=== PATIENT | female | born 1975 | race Hispanic/Latino ===

== ENCOUNTER 2020-01-15 23:24 | Emergency (ER) | payer OTHER ==
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
[2020-01-16 02:27] VITALS: BP 132/73
== END 2020-01-16 02:30 | disposition home or self-care (01) ==
LOC: ED 23:24
DX: S06.9X9A Unspecified intracranial injury with loss of consciousness of unspecified duration, initial encounter (principal); F17.200 Nicotine dependence, unspecified, uncomplicated; F15.10 Other stimulant abuse, uncomplicated; Z79.1 Long term (current) use of non-steroidal anti-inflammatories (NSAID); Z79.899 Other long term (current) drug therapy; V49.59XA Passenger injured in collision with other motor vehicles in traffic accident, initial encounter; W22.10XA Striking against or struck by unspecified automobile airbag, initial encounter; Y93.89 Activity, other specified; Y92.410 Unspecified street and highway as the place of occurrence of the external cause; Y99.8 Other external cause status
CPT/HCPCS: 70450; 72125

== ENCOUNTER 2021-06-21 14:02 | Emergency (ER) | payer OTHER ==
[2021-06-21 14:15] VITALS: BP 111/63
== END 2021-06-21 14:50 | disposition left against medical advice (07) ==
LOC: ED 14:02
DX: R10.9 Unspecified abdominal pain (principal); Z53.21 Procedure and treatment not carried out due to patient leaving prior to being seen by health care provider

== ENCOUNTER 2021-06-21 23:06 | Emergency (ER) | payer SELFPAY ==
[2021-06-21] MEDS ORDERED: ONDANSETRON 4 MG ODT TAB PO ONE (23:42)
[2021-06-21] MEDS ORDERED: MORPHINE 4 MG/1 ML INJ IV ONE (23:42)
[2021-06-21] MEDS ORDERED: ACETAMINOPHEN 500 MG TAB PO ONE (23:42)
[2021-06-21] MEDS ORDERED: KETOROLAC 30 MG/1 ML INJ IV ONE (23:43)
--- NOTE | 2021-06-21 23:45 | Emergency Department Report ---
ED Female HPI - General Chief complaint: Abdominal Pain Stated complaint: VAGINAL BLEEDING/LOWER ABD PN Time Seen by Provider: 06/21/21 23:36 Source: patient Mode of arrival: Wheelchair Limitations: No Limitations - History of Present Illness Initial comments: Chief complaint pelvic pain vaginal bleeding HPI: This is a 45-year-old female with history of methamphetamine abuse who presents with severe suprapubic pain and vaginal bleeding which began today. Patient has heavy vaginal bleeding. She feels a pad daily. No radiation of pain. 10 or 10. She denies headache, fever, vomiting, diarrhea. MD Complaint: vaginal bleeding -: Gradual Radiation: non-radiating Severity: severe Severity scale (0 -10): 10 Quality: cramping, sharp Consistency: constant Improves with: none Worsens with: none Are you Now?: No Associated Symptoms: vaginal bleeding - Related Data Previous Rx's Medication Instructions Recorded Last Taken Type Cyclobenzaprine [Flexeril] 10 mg PO TID PRN #20 tablet 01/16/20 Unknown Rx Ibuprofen [Motrin 800 MG tab] 800 mg PO Q8HR PRN #15 tablet 01/16/20 Unknown Rx HYDROcodone/APAP 5-325 [[place] 1 each PO Q4HR PRN #15 tablet 06/22/21 Unknown Rx 5/325] Ibuprofen [Motrin 800 MG tab] 800 mg PO Q8HR PRN #15 tablet 06/22/21 Unknown Rx Allergies Allergy/AdvReac Type Severity Reaction Status Date / Time No Known Allergies Allergy Unverified 01/15/20 23:42 ED Review of Systems ROS: Stated complaint: VAGINAL BLEEDING/LOWER ABD PN Other details as noted in HPI Comment: All other systems reviewed and negative Constitutional: denies: chills, fever, malaise Respiratory: denies: cough, shortness of breath Gastrointestinal: abdominal pain. denies: nausea, vomiting Musculoskeletal: denies: back pain ED Past Medical Hx - Past Medical History Previous Medical History?: Yes Hx Psychiatric Treatment: Yes Additional medical history: Irregukar periods - Surgical History Past Surgical History?: Yes Additional Surgical History: tubes tied. 2018 - Social History Smoking Status: Current Every Day Smoker Substance Use Type: Methamphetamines - Medications Home Medications: Home Medications Medication Instructions Recorded Confirmed Last Taken Type Cyclobenzaprine [Flexeril] 10 mg PO TID PRN #20 tablet 01/16/20 Unknown Rx Ibuprofen [Motrin 800 MG tab] 800 mg PO Q8HR PRN #15 tablet 01/16/20 Unknown Rx HYDROcodone/APAP 5-325 [[place] 1 each PO Q4HR PRN #15 tablet 06/22/21 Unknown Rx 5/325] Ibuprofen [Motrin 800 MG tab] 800 mg PO Q8HR PRN #15 tablet 06/22/21 Unknown Rx ED Physical Exam - General Limitations: No Limitations General appearance: alert, in no apparent distress, anxious - Head Head exam: Present: atraumatic, normocephalic - Eye Eye exam: Present: normal appearance - ENT ENT exam: Present: mucous membranes moist - Neck Neck exam: Present: normal inspection, full ROM - Respiratory Respiratory exam: Present: normal lung sounds bilaterally. Absent: respiratory distress, wheezes, rales, rhonchi - Cardiovascular Cardiovascular Exam: Present: regular rate, normal rhythm, normal heart sounds. Absent: systolic murmur, diastolic murmur, rubs, gallop - GI/Abdominal GI/Abdominal exam: Present: soft, normal bowel sounds. Absent: distended, tenderness, guarding, rebound - Extremities Exam Extremities exam: Present: normal inspection - Back Exam Back exam: Present: normal inspection - Neurological Exam Neurological exam: Present: alert, oriented X3 - Psychiatric Psychiatric exam: Present: normal affect, anxious - Skin Skin exam: Present: warm, dry, intact, normal color. Absent: rash ED Course Vital Signs 06/21/21 06/22/21 23:10 00:26 Temperature 98.4 F 98.5 F Pulse Rate 99 H 100 H Respiratory 28 H 21 Rate Blood Pressure 112/74 134/83 [Left] O2 Sat by Pulse 98 99 Oximetry ED Medical Decision Making - Lab Data Result diagrams: 06/21/21 23:33 06/21/21 23:33 Laboratory Results - last 24 hr 06/21/21 06/21/21 06/21/21 23:33 23:33 23:33 WBC 12.5 H RBC 3.88 Hgb 12.0 Hct 36.3 MCV 94 MCH 31 MCHC 33 RDW 13.9 Plt Count 239 Add Manual Diff Complete Total Counted 100 Seg Neutrophils % Beater Machine Operator Seg Neuts % (Manual) 93.0 H Lymphocytes % (Manual) 3.0 L Monocytes % (Manual) 4.0 Nucleated RBC % Not Reportable Seg Neutrophils # Man 11.6 H Band Neutrophils # 0.0 Lymphocytes # (Manual) 0.4 L Abs React Lymphs (Man) 0.0 Monocytes # (Manual) 0.5 Eosinophils # (Manual) 0.0 Basophils # (Manual) 0.0 Metamyelocytes # 0.0 Myelocytes # 0.0 Promyelocytes # 0.0 Blast Cells # 0.0 WBC Morphology Not Reportable Hypersegmented Neuts Not Reportable Hyposegmented Neuts Not Reportable Hypogranular Neuts Not Reportable Smudge Cells Not Reportable Toxic Granulation Not Reportable Toxic Vacuolation Not Reportable Dohle Bodies Not Reportable Pelger-Huet Anomaly Not Reportable Ashlyn Rods Not Reportable Platelet Estimate Consistent w auto Clumped Platelets Not Reportable Plt Clumps, EDTA Not Reportable Large Platelets Not Reportable Giant Platelets Not Reportable Platelet Satelliting Not Reportable Plt Morphology Comment Not Reportable RBC Morphology Not Reportable Dimorphic RBCs Not Reportable Polychromasia Not Reportable Hypochromasia Not Reportable Poikilocytosis Not Reportable Anisocytosis 1+ Microcytosis Not Reportable Macrocytosis Not Reportable Spherocytes Not Reportable Pappenheimer Bodies Not Reportable Sickle Cells Not Reportable Target Cells Not Reportable Tear Drop Cells Not Reportable Ovalocytes Not Reportable Helmet Cells Not Reportable [place] Bodies Not Reportable [place] Rings Not Reportable Central Cells Not Reportable Bite Cells Not Reportable Crenated Cell Not Reportable Elliptocytes Not Reportable Acanthocytes (Spur) Not Reportable Rouleaux Not Reportable Hemoglobin C Crystals Not Reportable Schistocytes Not Reportable Malaria parasites Not Reportable Geovanni Bodies Not Reportable Hem Pathologist Commnt No Sodium 139 Potassium 3.4 L Chloride 105.7 Carbon Dioxide 21 L Anion Gap 16 BUN 13 Creatinine 1.0 Estimated GFR 60 BUN/Creatinine Ratio 13 Glucose 116 H Calcium 8.5 HCG, Qual Negative Blood Type 06/21/21 23:33 WBC RBC Hgb Hct MCV MCH MCHC RDW Plt Count Add Manual Diff Total Counted Seg Neutrophils % Seg Neuts % (Manual) Lymphocytes % (Manual) Monocytes % (Manual) Nucleated RBC % Seg Neutrophils # Man Band Neutrophils # Lymphocytes # (Manual) Abs React Lymphs (Man) Monocytes # (Manual) Eosinophils # (Manual) Basophils # (Manual) Metamyelocytes # Myelocytes # Promyelocytes # Blast Cells # WBC Morphology Hypersegmented Neuts Hyposegmented Neuts Hypogranular Neuts Smudge Cells Toxic Granulation Toxic Vacuolation Dohle Bodies Pelger-Huet Anomaly Ashlyn Rods Platelet Estimate Clumped Platelets Plt Clumps, EDTA Large Platelets Giant Platelets Platelet Satelliting Plt Morphology Comment RBC Morphology Dimorphic RBCs Polychromasia Hypochromasia Poikilocytosis Anisocytosis Microcytosis Macrocytosis Spherocytes Pappenheimer Bodies Sickle Cells Target Cells Tear Drop Cells Ovalocytes Helmet Cells [place] Bodies Brook Rings Lila Cells Bite Cells Crenated Cell Elliptocytes Acanthocytes (Spur) Rouleaux Hemoglobin C Crystals Schistocytes Malaria parasites Geovanni Bodies Hem Pathologist Commnt Sodium Potassium Chloride Carbon Dioxide Anion Gap BUN Creatinine Estimated GFR BUN/Creatinine Ratio Glucose Calcium HCG, Qual Blood Type O POSITIVE - Radiology Data Radiology results: report reviewed Patient Name: FERCHO COLLINS Gender: Female Date of : 1975 Referring Provider: ALEXUS URIBE Organization: [facility] Accession Number: [id number] Requested Date: June 21, 2021 23:41 Report Status: Final Requested Procedure: 1 Procedure Description: US pelvic complete Modality: US Findings Reporting MD: Compa Rizvi Dictation Time: June 22, 2021 00:14 Medical Record Librarians Teacher: Not available Braille Translator Date: Transvaginal pelvic ultrasound INDICATION: Bleeding FINDINGS: Uterus measures 9.2 x 4.8 x 6.1 cm. Endometrium measures 6 to 7 mm. Ovaries are not visualized. Small hypoechoic area measuring 1.9 x 1.2 cm appears separate from the uterus, abdominal aorta. Patient was not very cooperative for examination and the examination is limited. Signer Name: Compa Rizvi MD Signed: 06/22/2021 12:14 AM Workstation Name: [id number] - Medical Decision Making Dysfunctional uterine bleeding due to suspected uterine fibroid: No anemia normal hemoglobin hematocrit. Patient has slightly elevated white count. I performed serial abdominal exams. No evidence of peritonitis. No abdominal tenderness. No guarding. I have prescribed ibuprofen and [place] referred patient to manager travel. Patient had only minimal bleeding while in the emergency department. Critical care attestation.: If time is entered above; I have spent that time in minutes in the direct care of this critically ill patient, excluding procedure time. ED Disposition Clinical Impression: Dysfunctional uterine bleeding, Uterine fibroid Disposition: HOME / SELF CARE / HOMELESS Is pt being admited?: No Does the pt Need Aspirin: No Condition: Stable Instructions: Abdominal Pain (ED), Abnormal Uterine Bleeding, Uterine Fibroids Prescriptions: Ibuprofen [Motrin 800 MG tab] 800 mg PO Q8HR PRN #15 tablet PRN Reason: Pain , Severe (7-10) HYDROcodone/APAP 5-325 [[place] 5/325] 1 each PO Q4HR PRN #15 tablet PRN Reason: Pain Referrals: STIVEN GALLO MD [Staff Physician] - 3-5 Days
[2021-06-21 23:46] LABS: Hematocrit 36.3 % (30.3-42.9); Mean Corpuscular HGB Conc 33 % (30-34); Mean Corpuscular Volume 94 fl (79-97); Platelet Count 239 K/mm3 (140-440); Red Blood Count 3.88 M/mm3 (3.65-5.03); Red Cell Distribution Width 13.9 % (13.2-15.2)
[2021-06-22 00:07] LABS: Calcium 8.5 mg/dL (8.4-10.2)
[2021-06-22 00:28] VITALS: BP 134/83
[2021-06-22 01:17] LABS: Anisocytosis 1+; Total Cells Counted 100
[2021-06-22 01:18] LABS: Platelet Estimate Consistent w Auto
--- NOTE | 2021-06-22 01:19 | Ultrasound Report ---
Transvaginal pelvic ultrasound INDICATION: Bleeding FINDINGS: Uterus measures 9.2 x 4.8 x 6.1 cm. Endometrium measures 6 to 7 mm. Ovaries are not visuali zed. Small hypoechoic area measuring 1.9 x 1.2 cm appears separate from the uterus, abdominal aorta. Patient was not very cooperative for examination and the examination is limited. Signer Name: Compa Rizvi MD Signed: 06/22/2021 1:14 AM Workstation Name: [id number]
== END 2021-06-22 01:59 | disposition home or self-care (01) ==
LOC: ED 23:06
DX: N93.8 Other specified abnormal uterine and vaginal bleeding (principal); D25.9 Leiomyoma of uterus, unspecified; Z98.890 Other specified postprocedural states; F17.200 Nicotine dependence, unspecified, uncomplicated
CPT/HCPCS: 36415; 76830; 80048; 84703; 85007; 85025; 86850; 86900; 86901; 96374; 96375; 99284; J1885; J2270; 76856; Q0162

== ENCOUNTER 2021-06-29 11:57 | Inpatient (IN) | payer SELFPAY ==
[2021-06-29] MEDS ORDERED: ONDANSETRON 4 MG/2 ML INJ IV ONE ×2 (12:41→23:49)
[2021-06-29] MEDS ORDERED: MORPHINE 4 MG/1 ML INJ IV ONE (12:41)
[2021-06-29] MEDS ORDERED: SODIUM CHLORIDE 0.9% 1000 ML 1,000 ML IV ONE (12:41)
[2021-06-29 13:29] LABS: Hematocrit 39.1 % (30.3-42.9); Hemoglobin 12.8 gm/dl (10.1-14.3); Mean Corpuscular HGB Conc 33 % (30-34); Mean Corpuscular Volume 94 fl (79-97); Platelet Count 602 K/mm3 (140-440); Red Blood Count 4.18 M/mm3 (3.65-5.03); Red Cell Distribution Width 14.6 % (13.2-15.2)
[2021-06-29] MEDS ORDERED: LACTATED RINGERS 1000 ML IV SOLN IV ONE (13:31)
[2021-06-29 13:39] LABS: Albumin 2.5 g/dL (3.9-5); Calcium 7.7 mg/dL (8.4-10.2)
[2021-06-29] MEDS ORDERED: PIPERACIL/TAZOBACTA 4.5/NS 100 4.5 GM/100 ML VIAL IV ONE (13:52)
[2021-06-29] MEDS ORDERED: MORPHINE 2 MG/1 ML INJ ONE (13:55)
--- NOTE | 2021-06-29 13:55 | Event Note ---
ED Screening Note Date of service: 06/29/21 Time: 13:53 ED Screening Note: Patient presents with complaints of sudden onset of mid/lower abdominal pain today Seen here about 1 week ago for vaginal bleeding and abdominal pain and discharged home Denies any bleeding or vomiting today Heart rate noted to be 124 Sepsis protocol ordered Lactic acid 8.6 charge nurse notified of bed and monitor need-working on this currently per charge zosyn and sepsis fluids ordered along with IV potassium This initial assessment/diagnostic orders/clinical plan/treatment(s) is/are subject to change based on patients health status, clinical progression and re- assessment by fellow clinical providers in the ED. Further treatment and workup at subsequent clinical providers discretion. Patient/guardian urged not to elope from the ED as their condition may be serious if not clinically assessed and managed. Initial orders include: labs CT meds
[2021-06-29 14:29] LABS: Band Neutrophils # (Manual) 1.1 K/mm3; Total Cells Counted 100
[2021-06-29 14:30] LABS: Platelet Estimate Consistent w Auto; RBC Morphology Normal
--- NOTE | 2021-06-29 14:51 | Cat Scan Report ---
CT OF THE ABDOMEN AND PELVIS WITHOUT CONTRAST INDICATION / CLINICAL INFORMATION: Severe lower abdominal pain and sepsis. Low GFR. TECHNIQUE: All CT scans at this location are performed using CT dose reduction for ALARA by means of automated exposure control. COMPARISON: None available. FINDINGS: ABDOMEN: There is marked bowel wall thickening involving the right colon with prominent pneumatosis. There is a large amount of extraluminal pericolonic gas in this region. There is moderate soft tissue stranding throughout the pericolonic fat on the right. There is minimal free air in the upper abdome n. There is mild high density ascites. The gallbladder is distended without visible gallstones. The liver, spleen, bile ducts, pancreas, adr enal glands and kidneys are normal. No adenopathy is seen. There is moderate right basilar atelectasi s. The left lung base is clear. PELVIS: There is moderate high density ascites in the pelvis. The distal ureters and urinary bladder are normal. The uterus and adnexal regions are unremarkable. The appendix is not seen. No diverticula r disease is identified. I do not identify a hernia. No acute osseous abnormality is seen. IMPRESSION: Marked bowel wall thickening involving the right colon with associated pneumatosis and ma rked extraluminal pericolonic soft tissue gas. Minimal pneumoperitoneum superiorly and mild high dens ity ascites. The findings are consistent with right colonic ischemia and perforation. CRITICAL RESULT Time of Discovery (SEMICONDUCTOR PACKAGE SYMBOL STAMPER/CDT): 1:40 PM Time of Communication (SEMICONDUCTOR PACKAGE SYMBOL STAMPER/CDT): 1:43 PM Licensed Practitioner Receiving Report: Catrina, the charge nurse in triage. Read-Back Performed: Yes. Signer Name: Tonio Fu MD Signed: 06/29/2021 2:47 PM Workstation Name: [id number]
[2021-06-29] MEDS ORDERED: HYDROmorphone 1 MG/1 ML INJ IV ONE ×2 (14:53→16:43)
[2021-06-29] MEDS ORDERED: metroNIDAZOLE/NS 500 MG/100 ML 500 MG/100 ML BAG IV ONE (14:59)
--- NOTE | 2021-06-29 15:03 | Emergency Department Report ---
ED General Adult HPI - General Chief complaint: Abdominal Pain Stated complaint: ABD PAIN/LEFT SIDE Time Seen by Provider: 06/29/21 14:51 Source: patient, RN notes reviewed Mode of arrival: Wheelchair Limitations: Physical Limitation - History of Present Illness Initial comments: The patient is a 45-year-old female. She presents to the ER with a complaint of diffuse abdominal pain. Patient was evaluated and started her work-up and medical screening examination by the physician plumber's assistant. She had laboratory studies ordered, which demonstrated leukocytosis, bandemia, renal insufficiency, and lactic acidosis. The noncontrast CT scan of the abdomen pelvis was emergently ordered, which demonstrated pneumoperitoneum, and pneumatosis. She was brought back to the emergency room immediately, and I immediately evaluated the patient. Patient complains of malaise, fatigue, weakness, abdominal pain, nausea. Her pain increases with palpation. It decreases with rest and hydromorphone. -: Gradual, hour(s) Radiation: abdomen Severity scale (0 -10): 10 Quality: aching Consistency: constant Improves with: medication, rest Worsens with: movement - Related Data Previous Rx's Medication Instructions Recorded Last Taken Type Cyclobenzaprine [Flexeril] 10 mg PO TID PRN #20 tablet 01/16/20 Unknown Rx Ibuprofen [Motrin 800 MG tab] 800 mg PO Q8HR PRN #15 tablet 01/16/20 Unknown Rx HYDROcodone/APAP 5-325 [[place] 1 each PO Q4HR PRN #15 tablet 06/22/21 Unknown Rx 5/325] Ibuprofen [Motrin 800 MG tab] 800 mg PO Q8HR PRN #15 tablet 06/22/21 Unknown Rx Allergies Allergy/AdvReac Type Severity Reaction Status Date / Time No Known Allergies Allergy Verified 06/29/21 14:00 ED Review of Systems ROS: Stated complaint: ABD PAIN/LEFT SIDE Other details as noted in HPI Comment: Unobtainable due to pts medical conditions Constitutional: malaise, weakness Cardiovascular: denies: chest pain Gastrointestinal: abdominal pain Neurological: weakness Psychiatric: anxiety ED Past Medical Hx - Past Medical History Hx Psychiatric Treatment: Yes Additional medical history: Irregukar periods - Surgical History Additional Surgical History: tubes tied. 2018 - Social History Smoking Status: Current Every Day Smoker Substance Use Type: Methamphetamines - Medications Home Medications: Home Medications Medication Instructions Recorded Confirmed Last Taken Type Cyclobenzaprine [Flexeril] 10 mg PO TID PRN #20 tablet 01/16/20 Unknown Rx Ibuprofen [Motrin 800 MG tab] 800 mg PO Q8HR PRN #15 tablet 01/16/20 Unknown Rx HYDROcodone/APAP 5-325 [[place] 1 each PO Q4HR PRN #15 tablet 06/22/21 Unknown Rx 5/325] Ibuprofen [Motrin 800 MG tab] 800 mg PO Q8HR PRN #15 tablet 06/22/21 Unknown Rx ED Physical Exam - General Limitations: Physical Limitation General appearance: alert, anxious, in distress, obese, other (Patient has mottled skin) - Head Head exam: Present: atraumatic, normocephalic - Eye Eye exam: Present: normal appearance, EOMI. Absent: nystagmus - ENT ENT exam: Present: normal exam, normal orophraynx, mucous membranes moist, normal external ear exam - Neck Neck exam: Present: normal inspection, full ROM. Absent: tenderness, meningismus - Respiratory Respiratory exam: Present: normal lung sounds bilaterally. Absent: respiratory distress, wheezes, rales, rhonchi, stridor, decreased breath sounds - Cardiovascular Cardiovascular Exam: Present: normal rhythm, tachycardia, normal heart sounds. Absent: bradycardia, irregular rhythm, systolic murmur, diastolic murmur, rubs, gallop - GI/Abdominal GI/Abdominal exam: Present: soft, distended, tenderness, guarding, rebound, rigid. Absent: pulsatile mass - Extremities Exam Extremities exam: Present: normal inspection, full ROM, other (2+ pulses noted in the bilateral upper and lower extremities. There is no palpable cord. negative Homans sign. Muscular compartments are soft. The pelvis is stable.). Absent: normal capillary refill (Mottled skin is noted), pedal edema, calf tenderness - Back Exam Back exam: Present: normal inspection. Absent: tenderness, CVA tenderness (R), CVA tenderness (L), paraspinal tenderness, vertebral tenderness - Neurological Exam Neurological exam: Present: alert, other (No facial droop. Tongue midline. Extraocular movements intact bilaterally. Facial sensation intact to light touch in V1, V2, V3 distribution bilaterally. 5 and a 5 strength in 4 extremities. Sensation intact to light touch in 4 extremities.) - Psychiatric Psychiatric exam: Present: anxious - Skin Skin exam: Present: warm, dry, intact, normal color. Absent: rash ED Course Vital Signs 06/29/21 06/29/21 06/29/21 12:02 14:57 15:00 Temperature 97.4 F L Pulse Rate 124 H Respiratory 22 Rate Blood Pressure 106/72 O2 Sat by Pulse 98 98 99 Oximetry 06/29/21 06/29/21 06/29/21 15:16 15:30 15:46 Temperature Pulse Rate 100 H 104 H 110 H Respiratory 46 H 40 H 39 H Rate Blood Pressure 108/78 108/78 108/78 O2 Sat by Pulse 97 96 96 Oximetry 06/29/21 06/29/21 16:00 16:16 Temperature Pulse Rate 102 H 100 H Respiratory 38 H 47 H Rate Blood Pressure 118/78 108/72 O2 Sat by Pulse 97 99 Oximetry ED Medical Decision Making - Lab Data Result diagrams: 06/29/21 12:59 06/29/21 12:59 Vital Signs 06/29/21 12:02 Temperature 97.4 F L Pulse Rate 124 H Respiratory 22 Rate Blood Pressure 106/72 O2 Sat by Pulse 98 Oximetry Lab Results 06/29/21 06/29/21 06/29/21 Range/Units 12:59 12:59 12:59 WBC 13.2 H (4.5-11.0) K/mm3 RBC 4.18 (3.65-5.03) M/mm3 Hgb 12.8 (10.1-14.3) gm/dl Hct 39.1 (30.3-42.9) % MCV 94 (79-97) fl MCH 31 (28-32) pg MCHC 33 (30-34) % RDW 14.6 (13.2-15.2) % Plt Count 602 H (140-440) K/mm3 Add Manual Diff Complete Total Counted 100 Seg Neutrophils % Credit Review Officer Seg Neuts % (Manual) 84.0 H (40.0-70.0) % Band Neutrophils % 8.0 % Lymphocytes % (Manual) 7.0 L (13.4-35.0) % Metamyelocytes % 1.0 % Nucleated RBC % Not Reportable Seg Neutrophils # Man 11.1 H (1.8-7.7) K/mm3 Band Neutrophils # 1.1 K/mm3 Lymphocytes # (Manual) 0.9 L (1.2-5.4) K/mm3 Abs React Lymphs (Man) 0.0 K/mm3 Monocytes # (Manual) 0.0 (0.0-0.8) K/mm3 Eosinophils # (Manual) 0.0 (0.0-0.4) K/mm3 Basophils # (Manual) 0.0 (0.0-0.1) K/mm3 Metamyelocytes # 0.1 K/mm3 Myelocytes # 0.0 K/mm3 Promyelocytes # 0.0 K/mm3 Blast Cells # 0.0 K/mm3 WBC Morphology Not Reportable Hypersegmented Neuts Not Reportable Hyposegmented Neuts Not Reportable Hypogranular Neuts Not Reportable Smudge Cells Not Reportable Toxic Granulation Not Reportable Toxic Vacuolation Not Reportable Dohle Bodies Not Reportable Pelger-Huet Anomaly Not Reportable Ashlyn Rods Not Reportable Platelet Estimate Consistent w auto Clumped Platelets Not Reportable Plt Clumps, EDTA Not Reportable Large Platelets Not Reportable Giant Platelets Not Reportable Platelet Satelliting Not Reportable Plt Morphology Comment Not Reportable RBC Morphology Normal Dimorphic RBCs Not Reportable Polychromasia Not Reportable Hypochromasia Not Reportable Poikilocytosis Not Reportable Anisocytosis Not Reportable Microcytosis Not Reportable Macrocytosis Not Reportable Spherocytes Not Reportable Pappenheimer Bodies Not Reportable Sickle Cells Not Reportable Target Cells Not Reportable Tear Drop Cells Not Reportable Ovalocytes Not Reportable Helmet Cells Not Reportable Caban-[place] Bodies Not Reportable Buckhead Rings Not Reportable [place] Cells Not Reportable Bite Cells Not Reportable Crenated Cell Not Reportable Elliptocytes Not Reportable Acanthocytes (Spur) Not Reportable Rouleaux Not Reportable Hemoglobin C Crystals Not Reportable Schistocytes Not Reportable Malaria parasites Not Reportable Geovanni Bodies Not Reportable Hem Pathologist Commnt No Sodium 135 L (137-145) mmol/L Potassium 2.6 L* (3.6-5.0) mmol/L Chloride 89.0 L (98-107) mmol/L Carbon Dioxide 16 L (22-30) mmol/L Anion Gap 33 mmol/L BUN 25 H (7-17) mg/dL Creatinine 2.1 H (0.6-1.2) mg/dL Estimated GFR 25 ml/min BUN/Creatinine Ratio 12 % Glucose 134 H (65-100) mg/dL Lactic Acid 8.30 H* (0.7-2.0) mmol/L Calcium 7.7 L (8.4-10.2) mg/dL Magnesium (1.7-2.3) mg/dL Total Bilirubin 0.50 (0.1-1.2) mg/dL AST 31 (5-40) units/L ALT 20 (7-56) units/L Alkaline Phosphatase 187 H (35-129) units/L Total Protein 7.4 (6.3-8.2) g/dL Albumin 2.5 L (3.9-5) g/dL Albumin/Globulin Ratio 0.5 % Lipase 9 L (13-60) units/L HCG, Qual (Negative) 06/29/21 06/29/21 06/29/21 Range/Units 12:59 12:59 13:55 WBC (4.5-11.0) K/mm3 RBC (3.65-5.03) M/mm3 Hgb (10.1-14.3) gm/dl Hct (30.3-42.9) % MCV (79-97) fl MCH (28-32) pg MCHC (30-34) % RDW (13.2-15.2) % Plt Count (140-440) K/mm3 Add Manual Diff Total Counted Seg Neutrophils % Seg Neuts % (Manual) (40.0-70.0) % Band Neutrophils % % Lymphocytes % (Manual) (13.4-35.0) % Metamyelocytes % % Nucleated RBC % Seg Neutrophils # Man (1.8-7.7) K/mm3 Band Neutrophils # K/mm3 Lymphocytes # (Manual) (1.2-5.4) K/mm3 Abs React Lymphs (Man) K/mm3 Monocytes # (Manual) (0.0-0.8) K/mm3 Eosinophils # (Manual) (0.0-0.4) K/mm3 Basophils # (Manual) (0.0-0.1) K/mm3 Metamyelocytes # K/mm3 Myelocytes # K/mm3 Promyelocytes # K/mm3 Blast Cells # K/mm3 WBC Morphology TNR Hypersegmented Neuts Hyposegmented Neuts Hypogranular Neuts Smudge Cells Toxic Granulation Toxic Vacuolation Dohle Bodies Pelger-Huet Anomaly Ashlyn Rods Platelet Estimate Clumped Platelets Plt Clumps, EDTA Large Platelets Giant Platelets Platelet Satelliting Plt Morphology Comment RBC Morphology Dimorphic RBCs Polychromasia Hypochromasia Poikilocytosis Anisocytosis Microcytosis Macrocytosis Spherocytes Pappenheimer Bodies Sickle Cells Target Cells Tear Drop Cells Ovalocytes Helmet Cells Caban-[place] Bodies Buckhead Rings Lila Cells Bite Cells Crenated Cell Elliptocytes Acanthocytes (Spur) Rouleaux Hemoglobin C Crystals Schistocytes Malaria parasites Geovanni Bodies Hem Pathologist Commnt Sodium (137-145) mmol/L Potassium (3.6-5.0) mmol/L Chloride (98-107) mmol/L Carbon Dioxide (22-30) mmol/L Anion Gap mmol/L BUN (7-17) mg/dL Creatinine (0.6-1.2) mg/dL Estimated GFR ml/min BUN/Creatinine Ratio % Glucose (65-100) mg/dL Lactic Acid (0.7-2.0) mmol/L Calcium (8.4-10.2) mg/dL Magnesium 2.10 (1.7-2.3) mg/dL Total Bilirubin (0.1-1.2) mg/dL AST (5-40) units/L ALT (7-56) units/L Alkaline Phosphatase (35-129) units/L Total Protein (6.3-8.2) g/dL Albumin (3.9-5) g/dL Albumin/Globulin Ratio % Lipase (13-60) units/L HCG, Qual Negative (Negative) - Radiology Data Radiology results: pending, report reviewed, image reviewed CT OF THE ABDOMEN AND PELVIS WITHOUT CONTRAST INDICATION / CLINICAL INFORMATION: Severe lower abdominal pain and sepsis. Low GFR. TECHNIQUE: All CT scans at this location are performed using CT dose reduction for ALARA by means of automated exposure control. COMPARISON: None available. FINDINGS: ABDOMEN: There is marked bowel wall thickening involving the right colon with prominent pneumatosis. There is a large amount of extraluminal pericolonic gas in this region. There is moderate soft tissue stranding throughout the pericolonic fat on the right. There is minimal free air in the upper abdomen. There is mild high density ascites. The gallbladder is distended without visible gallstones. The liver, spleen, bile ducts, pancreas, adrenal glands and kidneys are normal. No adenopathy is seen. There is moderate right basilar atelectasis. The left lung base is clear. PELVIS: There is moderate high density ascites in the pelvis. The distal ureters and urinary bladder are normal. The uterus and adnexal regions are unremarkable. The appendix is not seen. No diverticular disease is identified. I do not identify a hernia. No acute osseous abnormality is seen. IMPRESSION: Marked bowel wall thickening involving the right colon with associated pneumatosis and marked extraluminal pericolonic soft tissue gas. Minimal pneumoperitoneum superiorly and mild high density ascites. The findings are consistent with right colonic ischemia and perforation. CRITICAL RESULT Time of Discovery (SUTURE GAUGER/CDT): 1:40 PM Time of Communication (SUTURE GAUGER/CDT): 1:43 PM Licensed Practitioner Receiving Report: Catrina, the charge nurse in triage. Read-Back Performed: Yes. Signer Name: Tonio Fu MD Signed: 06/29/2021 1:47 PM Workstation Name: [id number] - Medical Decision Making Differential diagnosis, including but not limited to: Sepsis, perforated viscus, bacteremia Assessment and plan: 45-year-old female with evidence of perforated viscus, ischemic gut, ruling in for sepsis criteria, manifest by mottled skin, tachycardia, leukocytosis, bandemia, renal insufficiency. Emergency consultation requested from general surgery, Dr. Miranda. Have d iscussed the patient's history, physical, laboratory studies and imaging studies. He has presented to the emergency room emergently, and has already evaluated this patient personally. Patient will be given fluids, pain medication, antibiotics. Hospital physician, Dr. Ilya Dooley to admit to [facility] Patient's prognosis is guarded. All questions answered. Patient provided consents to have the details of her medical care discussed with her family. Critical Care Time: Yes Critical care time in (mins) excluding proc time.: 45 Critical care attestation.: If time is entered above; I have spent that time in minutes in the direct care of this critically ill patient, excluding procedure time. ED Disposition Clinical Impression: Sepsis, ALEX (acute kidney injury), Metabolic acidosis, Lactic acidosis, Perforated abdominal viscus, Peritonitis, Hypokalemia Disposition: 09 ADMITTED INPATIENT Is pt being admited?: Yes Does the pt Need Aspirin: No Condition: Critical Instructions: Abdominal Pain (ED) Referrals: PRIMARY CARE, [Primary Care Provider] - 3-5 Days
[2021-06-29] MEDS: POTASSIUM CHLORIDE 10 MEQ 10 MEQ/100 ML BAG IV SCH ×2 (15:40→16:06)
[2021-06-29 15:43] LABS: INR 1.04 (0.87-1.13)
[2021-06-29 15:44] LABS: Partial Thromboplastin Time 29.3 Sec. (24.2-36.6)
--- NOTE | 2021-06-29 16:36 | Anesthesia Consultation ---
Anesthesia Consult and Med Hx Date of service: 06/29/21 - Airway Anesthetic Teeth Evaluation: Poor (multiple missing and chipped teeth, denies loose teeth) ROM Head & Neck: Adequate Mental/Hyoid Distance: Adequate Mallampati Class: Class II Intubation Access Assessment: Probably Good - Pre-Operative Health Status ASA Pre-Surgery Classification: ASA4, Emergency Proposed Anesthetic Plan: General - Pulmonary Hx Smoking: Yes (1PPD) Hx Respiratory Symptoms: No - Cardiovascular System Hx Hypertension: No Hx Heart Attack/AMI: No - Central Nervous System CVA: No - Endocrine Hx Renal Disease: Yes (ALEX) Hx Liver Disease: No Hx Insulin Dependent Diabetes: No Hx Non-Insulin Dependent Diabetes: No Hx Thyroid Disease: No - Other Systems Hx Substance Use: Yes (methamphetamine abuse, last use 2 days ago) Hx Obesity: Yes (BMI 41) - Additional Comments Anesthesia Medical History Comments: No prior GA. No FHx anesthetic complications. Presents with abdominal pain, tachycardia, marginal BP, lactic acidosis and electrolyte derrangements found to have perforated colon on CT scan now scheduled for emergent ex-lap. IV antibiotics, potassium repletion, and IVF bolus initiated in ED. Plan GETA/RSI +/- a-line. Discussed possibility of postop mechanical ventilation and/or ICU admission pending intraoperative course. Patient verbalized understanding.
--- NOTE | 2021-06-29 16:38 | Consultation ---
History of Present Illness Consult date: 06/29/21 Reason for consult: abdominal pain - History of present illness History of present illness: 45 yo female with onset of diffuse abdominal pain without N/V today. +Constipation. ? Hematochezia (poor historian). No h/o CAD, Afib or post- prandial abdominal pain. +Meth use. +Psych hx. Past History Past Surgical History: Other (BTL) Social history: IV drug use Medications and Allergies Allergies Allergy/AdvReac Type Severity Reaction Status Date / Time No Known Allergies Allergy Verified 06/29/21 14:00 Home Medications Medication Instructions Recorded Confirmed Last Taken Type Cyclobenzaprine [Flexeril] 10 mg PO TID PRN #20 tablet 01/16/20 Unknown Rx Ibuprofen [Motrin 800 MG tab] 800 mg PO Q8HR PRN #15 tablet 01/16/20 Unknown Rx HYDROcodone/APAP 5-325 [[place] 1 each PO Q4HR PRN #15 tablet 06/22/21 Unknown Rx 5/325] Ibuprofen [Motrin 800 MG tab] 800 mg PO Q8HR PRN #15 tablet 06/22/21 Unknown Rx Review of Systems All systems: negative (none) Exam Vital Signs Temp Pulse Resp BP Pulse Ox 97.4 F L 124 H 22 106/72 98 06/29/21 12:02 06/29/21 12:02 06/29/21 12:02 06/29/21 12:02 06/29/21 12:02 - General physical appearance Positive: well developed, well nourished, no distress - Eyes Positive: PERRL, normal occular movement - ENT Positive: normal pinna, normal nares, normal mucosa, no hearing loss, no congestion - Neck Positive: no masses, no bruits, trachea midline, no venous distension - Respiratory Positive: normal expansion, normal respiratory effort, clear to auscultation - Cardiovascular Rhythm: regular Heart Sounds: Present: S1 & S2. Absent: rub, click - Extremities Extremities: no ischemia, pulses symmetrical, No edema - Breasts Breasts: normal, no mass, no skin changes - Abdomen Abdomen: Present: soft, bowel sounds hypoactive, other (Mildly distended, diffusely TTP with rebound and guarding) Hernia: none - Genitourinary Male Genitourinary: normal Female Genitourinary: normal - Integumentary no rash, no growths, no abnormal pigmentation - Neurologic Neurologic: alert and oriented to time, place and person, motor strength and sensation are grossly intact - Musculoskeletal normal gait, normal posture - Psychiatric Psychiatric: appropriate mood/affect, intact judgment & insight Results - Labs 06/29/21 12:59 06/29/21 12:59 Abnormal lab results 06/29/21 06/29/21 06/29/21 Range/Units 12:59 12:59 12:59 WBC 13.2 H (4.5-11.0) K/mm3 Plt Count 602 H (140-440) K/mm3 Seg Neuts % (Manual) 84.0 H (40.0-70.0) % Lymphocytes % (Manual) 7.0 L (13.4-35.0) % Seg Neutrophils # Man 11.1 H (1.8-7.7) K/mm3 Lymphocytes # (Manual) 0.9 L (1.2-5.4) K/mm3 Sodium 135 L (137-145) mmol/L Potassium 2.6 L* (3.6-5.0) mmol/L Chloride 89.0 L (98-107) mmol/L Carbon Dioxide 16 L (22-30) mmol/L BUN 25 H (7-17) mg/dL Creatinine 2.1 H (0.6-1.2) mg/dL Glucose 134 H (65-100) mg/dL Lactic Acid 8.30 H* (0.7-2.0) mmol/L Calcium 7.7 L (8.4-10.2) mg/dL Alkaline Phosphatase 187 H (35-129) units/L Albumin 2.5 L (3.9-5) g/dL Lipase 9 L (13-60) units/L 06/29/21 Range/Units 15:15 WBC (4.5-11.0) K/mm3 Plt Count (140-440) K/mm3 Seg Neuts % (Manual) (40.0-70.0) % Lymphocytes % (Manual) (13.4-35.0) % Seg Neutrophils # Man (1.8-7.7) K/mm3 Lymphocytes # (Manual) (1.2-5.4) K/mm3 Sodium (137-145) mmol/L Potassium (3.6-5.0) mmol/L Chloride (98-107) mmol/L Carbon Dioxide (22-30) mmol/L BUN (7-17) mg/dL Creatinine (0.6-1.2) mg/dL Glucose (65-100) mg/dL Lactic Acid 8.70 H* (0.7-2.0) mmol/L Calcium (8.4-10.2) mg/dL Alkaline Phosphatase (35-129) units/L Albumin (3.9-5) g/dL Lipase (13-60) units/L Diabetes panel 06/29/21 Range/Units 12:59 Sodium 135 L (137-145) mmol/L Potassium 2.6 L* (3.6-5.0) mmol/L Chloride 89.0 L (98-107) mmol/L Carbon Dioxide 16 L (22-30) mmol/L BUN 25 H (7-17) mg/dL Creatinine 2.1 H (0.6-1.2) mg/dL Glucose 134 H (65-100) mg/dL Calcium 7.7 L (8.4-10.2) mg/dL AST 31 (5-40) units/L ALT 20 (7-56) units/L Alkaline Phosphatase 187 H (35-129) units/L Total Protein 7.4 (6.3-8.2) g/dL Albumin 2.5 L (3.9-5) g/dL Calcium panel 06/29/21 Range/Units 12:59 Calcium 7.7 L (8.4-10.2) mg/dL Albumin 2.5 L (3.9-5) g/dL Pituitary panel 06/29/21 Range/Units 12:59 Sodium 135 L (137-145) mmol/L Potassium 2.6 L* (3.6-5.0) mmol/L Chloride 89.0 L (98-107) mmol/L Carbon Dioxide 16 L (22-30) mmol/L BUN 25 H (7-17) mg/dL Creatinine 2.1 H (0.6-1.2) mg/dL Glucose 134 H (65-100) mg/dL Calcium 7.7 L (8.4-10.2) mg/dL Adrenal panel 06/29/21 Range/Units 12:59 Sodium 135 L (137-145) mmol/L Potassium 2.6 L* (3.6-5.0) mmol/L Chloride 89.0 L (98-107) mmol/L Carbon Dioxide 16 L (22-30) mmol/L BUN 25 H (7-17) mg/dL Creatinine 2.1 H (0.6-1.2) mg/dL Glucose 134 H (65-100) mg/dL Calcium 7.7 L (8.4-10.2) mg/dL Total Bilirubin 0.50 (0.1-1.2) mg/dL AST 31 (5-40) units/L ALT 20 (7-56) units/L Alkaline Phosphatase 187 H (35-129) units/L Total Protein 7.4 (6.3-8.2) g/dL Albumin 2.5 L (3.9-5) g/dL - Imaging CT scan - abdomen: report reviewed CT scan - pelvis: report reviewed Assessment and Plan - Patient Problems (1) Perforated abdominal viscus Current Visit: Yes Status: Acute Plan to address problem: 1) Urgent exploratory laparotomy with possible right colectomy, possible colos lee and other indicated procedures 2) IV Zosyn 3) Pt and friend are aware of significant post-op risks including colostomy, short gut syndrome, sepsis and .
[2021-06-29] MEDS ORDERED: LACTATED RINGERS 1,000 ML IV ONE (16:40)
--- NOTE | 2021-06-29 16:40 | Anesthesia Day of Surgery ---
Anesthesia Day of Surgery - Day of Surgery Patient Examined: Yes Patient H&P Reviewed: Yes Patient is NPO: Yes
[2021-06-29] MEDS ORDERED: propofoL 200 MG/20 ML VIAL IV ONE (16:46)
[2021-06-29] MEDS ORDERED: HYDROmorphone 1 MG/1 ML INJ ONE (16:46)
[2021-06-29] MEDS ORDERED: LIDOCAINE MPF (2%) 20 MG/1 ML VIAL 5 ML ONE (16:48)
[2021-06-29] MEDS ORDERED: ROCURONIUM 50 MG/5 ML INJ IV ONE (16:49)
[2021-06-29] MEDS ORDERED: SUCCINYLCHOLINE CHLORIDE 200 MG/10 ML INJ MDV ONE (16:49)
[2021-06-29] MEDS ORDERED: SODIUM CHLORIDE 0.9% IRR 1,500 ML BOTTLE IR ONE ×2 (18:15)
[2021-06-29] MEDS ORDERED: LACTATED RINGERS 1,000 ML ONE ×5 (18:32→23:04)
[2021-06-29] MEDS ORDERED: PHENYLEPHRINE/NS 1,000 MCG/10 ML SYRINGE (OR USE) IV ONE (19:39)
[2021-06-29] MEDS ORDERED: ACETAMINOPHEN 650 MG RECT SUPP PR PRN (20:01)
[2021-06-29] MEDS ORDERED: ONDANSETRON 4 MG/2 ML INJ IV PRN (20:01)
[2021-06-29] MEDS ORDERED: VANCOMYCIN 1,500 MG in SODIUM CHLORIDE 0.9% 500 ML 500 ML IV ONE (21:00)
[2021-06-29] MEDS ORDERED: VANCOMYCIN PHARMACY TO DOSE IV SCH (21:00)
[2021-06-29] MEDS ORDERED: CEFEPIME/NS 2 GM/100 ML 2 GM/100 ML BAG IV SCH ×2 (21:00)
[2021-06-29] MEDS ORDERED: GLYCOPYRROLATE 0.4 MG/2 ML INJ ONE (21:09)
[2021-06-29] MEDS ORDERED: NEOSTIGMINE 10MG/10 ML INJ MDV ONE (21:09)
[2021-06-29] MEDS ORDERED: ONDANSETRON 4 MG/2 ML INJ ONE (21:10)
--- NOTE | 2021-06-29 21:19 | History and Physical Report ---
History of Present Illness Date of examination: 06/29/21 Date of admission: 06/29/21 20:01 Chief complaint: Complains of diffuse abdominal pain since early a.m. History of present illness: 45-year-old female with psychiatric problems-comes in for diffuse abdominal pain since early a.m. Pain is about 8 on a scale of 1-10. Nausea present. No fever or chills. Work-up in the emergency room demonstrated leukocytosis, lactic acidosis high creatinine. Noncontrast CT of the scan demonstrated pneumoperitoneum because of which perforation of the GI tract was suspected and surgery was informed. Other than psychiatric problems patient does not have significant medical history. She takes Motrin and [place] for pain. No precipitating or exacerbating factors. Patient being admitted for viscus perforation and for emergent surgery. - Past Medical History --Psychiatric Treatment: Yes --Additional medical history: Irregular periods - Surgical History --Additional Surgical History: tubes tied. 2018 - Social History --Smoking Status: Current Every Day Smoker --Substance Use Type: Methamphetamines - Medications --Home Medications: Home Medications Medication Instructions Recorded Confirmed Last Taken Type Cyclobenzaprine [Flexeril] 10 mg PO TID PRN #20 tablet 01/16/20 Unknown Rx Ibuprofen [Motrin 800 MG tab] 800 mg PO Q8HR PRN #15 tablet 01/16/20 Unknown Rx HYDROcodone/APAP 5-325 [[place] 1 each PO Q4HR PRN #15 tablet 06/22/21 Unknown Rx 5/325] Ibuprofen [Motrin 800 MG tab] 800 mg PO Q8HR PRN #15 tablet 06/22/21 Unknown Rx -Review of Systems --ROS: --Stated complaint: ABD PAIN/LEFT SIDE --Other details as noted in HPI --Comment: Unobtainable due to pts medical conditions --Constitutional: malaise, weakness --Cardiovascular: denies: chest pain --Gastrointestinal: abdominal pain --Neurological: weakness --Psychiatric: anxiety Past History Past Surgical History: Other (BTL) Social history: IV drug use Medications and Allergies Allergies Allergy/AdvReac Type Severity Reaction Status Date / Time No Known Allergies Allergy Verified 06/29/21 14:00 Home Medications Medication Instructions Recorded Confirmed Last Taken Type Cyclobenzaprine [Flexeril] 10 mg PO TID PRN #20 tablet 01/16/20 Unknown Rx Ibuprofen [Motrin 800 MG tab] 800 mg PO Q8HR PRN #15 tablet 01/16/20 Unknown Rx HYDROcodone/APAP 5-325 [[place] 1 each PO Q4HR PRN #15 tablet 06/22/21 Unknown Rx 5/325] Ibuprofen [Motrin 800 MG tab] 800 mg PO Q8HR PRN #15 tablet 06/22/21 Unknown Rx Active Meds: Active Medications Acetaminophen (Acetaminophen 650 Mg Rect Supp) 650 mg CA Q4H PRN PRN Reason: Pain MILD(1-3)/Fever >100.5/PAYNE Hydromorphone HCl (Hydromorphone 1 Mg/1 Ml Inj) 0.5 mg IV Q3H PRN PRN Reason: Pain , Severe (7-10) Dextrose/Sodium Chloride (D5ns) 1,000 mls @ 100 mls/hr IV DIRECT SOILA Cefepime HCl (Cefepime/Ns 2 Gm/100 Ml) 2 gm in 100 mls @ 200 mls/hr IV Q12H SOILA; Protocol Vancomycin HCl 1,500 mg/ (Sodium Chloride) 530 mls @ 265 mls/hr IV ONCE ONE Stop: 06/29/21 22:59 Vancomycin HCl 1,500 mg/ (Sodium Chloride) 530 mls @ 265 mls/hr IV Q24H SOILA Morphine Sulfate (Morphine 2 Mg/1 Ml Inj) 2 mg IV Q4H PRN PRN Reason: Pain, Moderate (4-6) Ondansetron HCl (Ondansetron 4 Mg/2 Ml Inj) 4 mg IV Q8H PRN PRN Reason: Nausea And Vomiting Sodium Chloride (Sodium Chloride 0.9% 10 Ml Flush Syringe) 10 ml IV BID SOILA Sodium Chloride (Sodium Chloride 0.9% 10 Ml Flush Syringe) 10 ml IV PRN PRN PRN Reason: LINE FLUSH Exam - Constitutional Vitals: Temp Pulse Resp BP Pulse Ox 97.4 F L 100 H 47 H 108/72 99 06/29/21 12:02 06/29/21 16:16 06/29/21 16:16 06/29/21 16:16 06/29/21 16:16 General appearance: Present: no acute distress, well-nourished - EENT Eyes: Present: PERRL ENT: hearing intact, clear oral mucosa - Neck Neck: Present: supple, normal ROM - Respiratory Respiratory effort: normal Respiratory: bilateral: CTA - Cardiovascular Heart rate: 98 Rhythm: regular Heart Sounds: Present: S1 & S2. Absent: rub, click - Extremities Extremities: pulses symmetrical, No edema Peripheral Pulses: within normal limits - Abdominal General gastrointestinal: Present: soft, tender, hypoactive bowel sounds Localized gastrointestinal: tender: diffuse, guarding: diffuse, rebound: diffuse Female genitourinary: Present: normal - Integumentary Integumentary: Present: clear, warm, dry - Musculoskeletal Musculoskeletal: gait normal, strength equal bilaterally - Psychiatric Psychiatric: appropriate mood/affect, intact judgment & insight - Neurologic Neurologic: CNII-XII intact, moves all extremities - Allied Health Allied health notes reviewed: nursing, case management Results - Labs CBC & Chem 7: 06/30/21 04:52 06/30/21 04:52 Labs: Laboratory Last Values WBC 13.2 K/mm3 (4.5-11.0) H 06/29/21 12:59 RBC 4.18 M/mm3 (3.65-5.03) 06/29/21 12:59 Hgb 12.8 gm/dl (10.1-14.3) 06/29/21 12:59 Hct 39.1 % (30.3-42.9) 06/29/21 12:59 MCV 94 fl (79-97) 06/29/21 12:59 MCH 31 pg (28-32) 06/29/21 12:59 MCHC 33 % (30-34) 06/29/21 12:59 RDW 14.6 % (13.2-15.2) 06/29/21 12:59 Plt Count 602 K/mm3 (140-440) H 06/29/21 12:59 Add Manual Diff Complete 06/29/21 12:59 Total Counted 100 06/29/21 12:59 Seg Neutrophils % Gym Supervisor 06/29/21 12:59 Seg Neuts % (Manual) 84.0 % (40.0-70.0) H 06/29/21 12:59 Band Neutrophils % 8.0 % 06/29/21 12:59 Lymphocytes % (Manual) 7.0 % (13.4-35.0) L 06/29/21 12:59 Metamyelocytes % 1.0 % 06/29/21 12:59 Nucleated RBC % Not Reportable 06/29/21 12:59 Seg Neutrophils # Man 11.1 K/mm3 (1.8-7.7) H 06/29/21 12:59 Band Neutrophils # 1.1 K/mm3 06/29/21 12:59 Lymphocytes # (Manual) 0.9 K/mm3 (1.2-5.4) L 06/29/21 12:59 Abs React Lymphs (Man) 0.0 K/mm3 06/29/21 12:59 Monocytes # (Manual) 0.0 K/mm3 (0.0-0.8) 06/29/21 12:59 Eosinophils # (Manual) 0.0 K/mm3 (0.0-0.4) 06/29/21 12:59 Basophils # (Manual) 0.0 K/mm3 (0.0-0.1) 06/29/21 12:59 Metamyelocytes # 0.1 K/mm3 06/29/21 12:59 Myelocytes # 0.0 K/mm3 06/29/21 12:59 Promyelocytes # 0.0 K/mm3 06/29/21 12:59 Blast Cells # 0.0 K/mm3 06/29/21 12:59 WBC Morphology Not Reportable 06/29/21 12:59 WBC Morphology TNR 06/29/21 12:59 Hypersegmented Neuts Not Reportable 06/29/21 12:59 Hyposegmented Neuts Not Reportable 06/29/21 12:59 Hypogranular Neuts Not Reportable 06/29/21 12:59 Smudge Cells Not Reportable 06/29/21 12:59 Toxic Granulation Not Reportable 06/29/21 12:59 Toxic Vacuolation Not Reportable 06/29/21 12:59 Dohle Bodies Not Reportable 06/29/21 12:59 Pelger-Huet Anomaly Not Reportable 06/29/21 12:59 Ashlyn Rods Not Reportable 06/29/21 12:59 Platelet Estimate Consistent w auto 06/29/21 12:59 Clumped Platelets Not Reportable 06/29/21 12:59 Plt Clumps, EDTA Not Reportable 06/29/21 12:59 Large Platelets Not Reportable 06/29/21 12:59 Giant Platelets Not Reportable 06/29/21 12:59 Platelet Satelliting Not Reportable 06/29/21 12:59 Plt Morphology Comment Not Reportable 06/29/21 12:59 RBC Morphology Normal 06/29/21 12:59 Dimorphic RBCs Not Reportable 06/29/21 12:59 Polychromasia Not Reportable 06/29/21 12:59 Hypochromasia Not Reportable 06/29/21 12:59 Poikilocytosis Not Reportable 06/29/21 12:59 Anisocytosis Not Reportable 06/29/21 12:59 Microcytosis Not Reportable 06/29/21 12:59 Macrocytosis Not Reportable 06/29/21 12:59 Spherocytes Not Reportable 06/29/21 12:59 Pappenheimer Bodies Not Reportable 06/29/21 12:59 Sickle Cells Not Reportable 06/29/21 12:59 Target Cells Not Reportable 06/29/21 12:59 Tear Drop Cells Not Reportable 06/29/21 12:59 Ovalocytes Not Reportable 06/29/21 12:59 Helmet Cells Not Reportable 06/29/21 12:59 Caban-[place]aberfae Bodies Not Reportable 06/29/21 12:59 [place] Rings Not Reportable 06/29/21 12:59 Lila Cells Not Reportable 06/29/21 12:59 Bite Cells Not Reportable 06/29/21 12:59 Crenated Cell Not Reportable 06/29/21 12:59 Elliptocytes Not Reportable 06/29/21 12:59 Acanthocytes (Spur) Not Reportable 06/29/21 12:59 Rouleaux Not Reportable 06/29/21 12:59 Hemoglobin C Crystals Not Reportable 06/29/21 12:59 Schistocytes Not Reportable 06/29/21 12:59 Malaria parasites Not Reportable 06/29/21 12:59 Geovanni Bodies Not Reportable 06/29/21 12:59 Hem Pathologist Commnt No 06/29/21 12:59 PT 14.7 Sec. (12.2-14.9) 06/29/21 15:15 INR 1.04 (0.87-1.13) 06/29/21 15:15 APTT 29.3 Sec. (24.2-36.6) 06/29/21 15:15 Sodium 135 mmol/L (137-145) L 06/29/21 12:59 Potassium 2.6 mmol/L (3.6-5.0) L* 06/29/21 12:59 Chloride 89.0 mmol/L (98-107) L 06/29/21 12:59 Carbon Dioxide 16 mmol/L (22-30) L 06/29/21 12:59 Anion Gap 33 mmol/L 06/29/21 12:59 BUN 25 mg/dL (7-17) H 06/29/21 12:59 Creatinine 2.1 mg/dL (0.6-1.2) H 06/29/21 12:59 Estimated GFR 25 ml/min 06/29/21 12:59 BUN/Creatinine Ratio 12 % 06/29/21 12:59 Glucose 134 mg/dL (65-100) H 06/29/21 12:59 Lactic Acid 8.00 mmol/L (0.7-2.0) H* 06/29/21 16:43 Calcium 7.7 mg/dL (8.4-10.2) L 06/29/21 12:59 Magnesium 2.10 mg/dL (1.7-2.3) 06/29/21 12:59 Total Bilirubin 0.50 mg/dL (0.1-1.2) 06/29/21 12:59 AST 31 units/L (5-40) 06/29/21 12:59 ALT 20 units/L (7-56) 06/29/21 12:59 Alkaline Phosphatase 187 units/L (35-129) H 06/29/21 12:59 Total Protein 7.4 g/dL (6.3-8.2) 06/29/21 12:59 Albumin 2.5 g/dL (3.9-5) L 06/29/21 12:59 Albumin/Globulin Ratio 0.5 % 06/29/21 12:59 Lipase 9 units/L (13-60) L 06/29/21 12:59 HCG, Qual Negative (Negative) 06/29/21 13:55 Blood Type O POSITIVE 06/29/21 15:20 Antibody Screen Negative 06/29/21 15:20 Short CBC 06/29/21 06/30/21 Range/Units 12:59 04:52 WBC 13.2 H 12.2 H (4.5-11.0) K/mm3 Hgb 12.8 10.2 (10.1-14.3) gm/dl Hct 39.1 30.9 D (30.3-42.9) % Plt Count 602 H 467 H (140-440) K/mm3 BMP 06/29/21 06/30/21 12:59 04:52 Sodium 135 L 137 Potassium 2.6 L* 4.2 D Chloride 89.0 L 100.0 Carbon Dioxide 16 L 13 L BUN 25 H 29 H Creatinine 2.1 H 2.4 H Glucose 134 H 147 H Calcium 7.7 L 6.0 L D Liver Function 06/29/21 06/30/21 Range/Units 12:59 04:52 Total Bilirubin 0.50 0.60 (0.1-1.2) mg/dL AST 31 214 H (5-40) units/L ALT 20 89 H (7-56) units/L Alkaline Phosphatase 187 H 100 (35-129) units/L Albumin 2.5 L 1.3 L (3.9-5) g/dL Urine 06/30/21 Range/Units 04:37 Urine Color Carola (Yellow) Urine pH 5.0 (5.0-7.0) Ur Specific [place] 1.017 (1.003-1.030) Urine Protein 100 mg/dl (Negative) mg/dL Urine Glucose (UA) 50 (Negative) mg/dL Microbiology: Microbiology 06/29/21 12:59 Peripheral/Venous Blood Culture - Preliminary Culture in Progress 06/29/21 12:59 Peripheral/Venous Blood Culture - Preliminary Culture in Progress - Imaging and Cardiology CT scan - abdomen: report reviewed Imaging and Cardiology: CT of the abdomen Mild bowel wall thickening involving the right colon with associated pneumatosis and mild extraluminal pericolonic soft tissue gas. Minimal pneumoperitoneum superiorly and mild high density ascites. The findings are consistent with right colonic ischemia and perforation Assessment and Plan Assessment and plan: Critical care statement The high probability OF a clinically significant sudden or life-threatening deterioration of the cardiorespiratory system and endocrine system required my full and direct attention, intervention and postoperative management. The aggregate critical care time was 40 minutes. The time is in addition to time spent performing reported procedures but includes the followin: Data review and interpretation 2: Patient assessment and monitoring of vital signs 3: Documentation 4:: Medication orders and management Advance Directives: Yes (Full code) VTE prophylaxis?: Chemical Plan of care discussed with patient/family: Yes - Patient Problems (1) Sepsis Current Visit: Yes Status: Acute Qualifiers: Severe sepsis shock status: without septic shock Plan to address problem: Sepsis secondary to right colon perforation IV antibiotics in the form of cefepime and IV Flagyl IV fluids Surgery consult Patient being taken for surgery emergently. (2) Perforated abdominal viscus Current Visit: Yes Status: Acute Plan to address problem: Perforated right colon Etiology unclear Patient takes ibuprofen No other cause could be identified Emergent surgery-Dr. Miranda consulted (3) Peritonitis Current Visit: Yes Status: Acute Plan to address problem: Patient on IV cefepime and Flagyl ID consult requested (4) ALEX (acute kidney injury) Current Visit: Yes Status: Acute Plan to address problem: IV fluids for now Vasomotor nephropathy (5) Elevated lactic acid level Current Visit: Yes Status: Acute Plan to address problem: Secondary to sepsis (6) Hypocalcemia Current Visit: Yes Status: Acute Plan to address problem: Calcium gluconate for now Oral calcium to be started when the patient is on oral diet (7) Malnutrition Current Visit: Yes Status: Acute Qualifiers: Protein-calorie malnutrition severity: moderate Plan to address problem: Patient is a TPN after surgery Patient is going to have right colectomy and colostomy (8) Hypokalemia Current Visit: Yes Status: Acute Plan to address problem: Supplemented (9) Urinary tract infection Current Visit: Yes Status: Acute Qualifiers: Urinary tract infection type: acute cystitis Plan to address problem: Patient IV antibiotics pending urine cultures (10) DVT prophylaxis Current Visit: Yes Status: Acute Plan to address problem: On anticoagulation GI prophylaxis
--- NOTE | 2021-06-29 21:24 | Procedure Note ---
Date of procedure: 06/29/21 Pre-op diagnosis: Perforated, ischemic right colon Post-op diagnosis: same Procedure: 1) Right colectomy with end ileostomy 2) Omentectomy Description of procedure: Pt was placed supine on the OR table. GETA was administered. Abdomen was prepped and draped. Peritoneal cavity was entered via a long midline incision. A large amount of feculent pus was encountered on entering the peritoneal cavity. Some time was spent suctioning the purulent fluid which was collected for C&S. A Burkwalter retractor was placed. The omentum was adherent to the the underlying small bowel and right colon. Omentum was freed from these structures with digital dissection. Small bowel was run from the ligament of Treitz to the IC valve. Although the bowel was edematous and there were several areas where the small bowel mesentery had begun to wall off abscesses, the entire small bowel appeared viable and was without evidence of perforation. The right colon was then examined and appeared necrotic from the cecum to just beyond the hepatic flexure. The appendix was obviously gangrenous. The right colon lateral attachments were incised and the colon mobilized medially. Distal ileum and viable mid-transverse colon were divided with FRANCISCO staplers. The small bowel mesentery and mesocolon were clamped, divided and ligated with 2-0 silks. TI and right colon were passed off the table. The remainder of the colon and gallbladder were without evidence of pr imary inflammation. Peritoneal cavity was then irrigated with 3 liters of warm saline. Areas of dissection were check for hemostasis and all areas appeared hemostatic. A 3 cm cruciate incision was then made in the LLQ fascia for passage of the ileostomy. The TI was passed through this defect. Midline fascia was approximated with a running, looped, #1 PDS. SQ tissue was packed open with 2 dilute Betadine moistened Kerlix rolls. An occlusive Tegaderm dressing was applied over the midline wound. The ileostomy was then matured with interrupted sutures of 3-0 Vicryl. Ileostomy wafer and bag were applied. Pt tolerated the procedure well. Pt was extubated in the OR and was taken to PACU in stable condition. Anesthesia: GETA Surgeon: ANUP RODRIGUEZ Estimated blood loss: other (500 ml) Pathology: list (TI and right colon) Specimen disposition: to lab Condition: stable Disposition: PACU
[2021-06-29] MEDS: HYDROmorphone 1 MG/1 ML INJ IV PRN ×4 (21:45→22:37)
[2021-06-29] MEDS ORDERED: PIPERACIL/TAZOBACTA 4.5/NS 100 4.5 GM/100 ML VIAL IV SCH (22:00)
[2021-06-29] MEDS: PIPERACIL-TAZO 2.25 GM/50 ML 2.25 GM/50 ML BAG IV SCH (22:59)
--- NOTE | 2021-06-29 23:05 | Post Anesthesia Evaluation ---
- Post Anesthesia Evaluation Patient Participated: Yes Airway Patent: Yes Stable Respiratory Function: Yes Nausea/Vomiting: No Temp > 96.8F: Yes Pain Manageable: Yes Adequeate Hydration: Yes Anesthesia Complications: No Patient on Ventilator: No Other Comments: Tachycardic, normotensive without pressor support, SpO2 maint ained >93% on NC. Per building maintenance mechanic and surgeron discussion, patient will be transferred to [facility]. IVF resuscitation ongoing and next scheduled dose antibiotics started prior to transfer. Family updated by surgeon and [employer]BE[employer]KE [employer]ER.
[2021-06-29] MEDS ORDERED: ONDANSETRON 4 MG/2 ML INJ IM ONE (23:21)
[2021-06-30] MEDS ORDERED: PIPERACIL-TAZO 2.25 GM/50 ML 2.25 GM/50 ML BAG IV SCH
[2021-06-30] MEDS: D5W/0.9% NACL 1,000 ML IV SCH ×3 (00:17→22:21)
[2021-06-30] MEDS: PIPERACIL-TAZO 2.25 GM/50 ML 2.25 GM/50 ML BAG IV SCH ×2 (05:09→11:07)
[2021-06-30 05:14] LABS: Bacteria,Urine 1+ /HPF (Negative); Bilirubin,Urine NEG (Negative); Blood,Urine SM (Negative); Color,Urine Amber (Yellow)
[2021-06-30 05:49] LABS: Basophils % (Auto) 0.2 % (0.0-1.8); Eosinophils # (Auto) 0.1 K/mm3 (0.0-0.4); Eosinophils % (Auto) 0.6 % (0.0-4.3); Hematocrit 30.9 % (30.3-42.9); Hemoglobin 10.2 gm/dl (10.1-14.3); Lymphocytes # (Auto) 0.6 K/mm3 (1.2-5.4); Lymphocytes % (Auto) 5.1 % (13.4-35.0); Mean Corpuscular HGB Conc 33 % (30-34); Mean Corpuscular Volume 95 fl (79-97); Monocytes # (Auto) 0.5 K/mm3 (0.0-0.8); Monocytes % (Auto) 4.1 % (0.0-7.3); Platelet Count 467 K/mm3 (140-440); Red Blood Count 3.25 M/mm3 (3.65-5.03); Red Cell Distribution Width 15.2 % (13.2-15.2)
[2021-06-30 06:05] LABS: Albumin 1.3 g/dL (3.9-5)
[2021-06-30] MEDS ORDERED: CALCIUM GLUCONATE 2,000 MG in SODIUM CHLORIDE 0.9% 100 ML IV ONE (06:58)
--- NOTE | 2021-06-30 08:20 | Progress Note ---
Assessment and Plan Assessment and plan: 45-year-old female who presented with diffuse abdominal pain. CT scan demonstrated pneumoperitoneum due to perforation. She was taken for emergent surgery. S/p R colectomy with end ileostomy. Patient currently stable. #Sepsis #Perforated abdominal viscus -POD #0: Right colectomy with end ileostomy -Status post Zosyn -ID consulted for antibiotic recommendations, will start Rocephin and Flagyl x5 days -General Surgery following #Hypotension -BP with low BP overnight -responsive to fluids -will give 1 bolus of LR -continue D5 infusion, low threshold to start pressors if needed #Acute kidney injury -Creatinine 1.0 last month -SCr 2.4, if SCr continues to uptrend, will consult Nephrology -urine sodium, creatinine ordered -received 2 L boluses of IVF -D5 currently infusing #Elevated lactate level -lactate 8.0 -likely secondary to perforated bowel -repeat ordered #Hypokalemia -Resolved -will continue to monitor and replete #Urinary tract infection -continue rocephin Disposition Plan: Continue medical management Total Time Spent with Patient (Minutes): 30 minutes History Interval history: Status post colectomy. Patient reports feeling "thirsty". Reports abdominal and lower back pain. Denies chest pain and shortness of breath. Hospitalist Physical - Physical exam Narrative exam: GENERAL: Well-developed well-nourished. Lying in bed, no acute distress. HEENT: NG tube in place CHEST/LUNGS: CTAB on room air HEART/CARDIOVASCULAR: Tachycardic. No murmur, rubs or gallops appreciated. ABDOMEN: Open midline abdominal surgical incision. Ostomy. +BS. SKIN: No rashes noted. NEURO: No focal motor deficit. Follows all commands. MUSCULOSKELETAL: No joint effusion EXTREMITIES: No cyanosis, cubbing or edema. PSYCH: Cooperative. - Constitutional Vitals: Temp Pulse Resp BP Pulse Ox 97.2 F L 112 H 28 H 89/56 95 06/30/21 06:03 06/30/21 07:00 06/30/21 07:00 06/30/21 07:00 06/30/21 07:00 General appearance: Present: no acute distress, well-nourished Results - Labs CBC & Chem 7: 06/30/21 04:52 06/30/21 04:52 Labs: Laboratory Last Values WBC 12.2 K/mm3 (4.5-11.0) H 06/30/21 04:52 RBC 3.25 M/mm3 (3.65-5.03) L 06/30/21 04:52 Hgb 10.2 gm/dl (10.1-14.3) 06/30/21 04:52 Hct 30.9 % (30.3-42.9) D 06/30/21 04:52 MCV 95 fl (79-97) 06/30/21 04:52 MCH 31 pg (28-32) 06/30/21 04:52 MCHC 33 % (30-34) 06/30/21 04:52 RDW 15.2 % (13.2-15.2) 06/30/21 04:52 Plt Count 467 K/mm3 (140-440) H 06/30/21 04:52 Lymph % (Auto) 5.1 % (13.4-35.0) L 06/30/21 04:52 Gray % (Auto) 4.1 % (0.0-7.3) 06/30/21 04:52 Eos % (Auto) 0.6 % (0.0-4.3) 06/30/21 04:52 Baso % (Auto) 0.2 % (0.0-1.8) 06/30/21 04:52 Lymph # (Auto) 0.6 K/mm3 (1.2-5.4) L 06/30/21 04:52 Gray # (Auto) 0.5 K/mm3 (0.0-0.8) 06/30/21 04:52 Eos # (Auto) 0.1 K/mm3 (0.0-0.4) 06/30/21 04:52 Baso # (Auto) 0.0 K/mm3 (0.0-0.1) 06/30/21 04:52 Add Manual Diff Complete 06/29/21 12:59 Total Counted 100 06/29/21 12:59 Seg Neutrophils % 90.0 % (40.0-70.0) H 06/30/21 04:52 Seg Neuts % (Manual) 84.0 % (40.0-70.0) H 06/29/21 12:59 Band Neutrophils % 8.0 % 06/29/21 12:59 Lymphocytes % (Manual) 7.0 % (13.4-35.0) L 06/29/21 12:59 Metamyelocytes % 1.0 % 06/29/21 12:59 Nucleated RBC % Not Reportable 06/29/21 12:59 Seg Neutrophils # 11.0 K/mm3 (1.8-7.7) H 06/30/21 04:52 Seg Neutrophils # Man 11.1 K/mm3 (1.8-7.7) H 06/29/21 12:59 Band Neutrophils # 1.1 K/mm3 06/29/21 12:59 Lymphocytes # (Manual) 0.9 K/mm3 (1.2-5.4) L 06/29/21 12:59 Abs React Lymphs (Man) 0.0 K/mm3 06/29/21 12:59 Monocytes # (Manual) 0.0 K/mm3 (0.0-0.8) 06/29/21 12:59 Eosinophils # (Manual) 0.0 K/mm3 (0.0-0.4) 06/29/21 12:59 Basophils # (Manual) 0.0 K/mm3 (0.0-0.1) 06/29/21 12:59 Metamyelocytes # 0.1 K/mm3 06/29/21 12:59 Myelocytes # 0.0 K/mm3 06/29/21 12:59 Promyelocytes # 0.0 K/mm3 06/29/21 12:59 Blast Cells # 0.0 K/mm3 06/29/21 12:59 WBC Morphology Not Reportable 06/29/21 12:59 WBC Morphology TNR 06/29/21 12:59 Hypersegmented Neuts Not Reportable 06/29/21 12:59 Hyposegmented Neuts Not Reportable 06/29/21 12:59 Hypogranular Neuts Not Reportable 06/29/21 12:59 Smudge Cells Not Reportable 06/29/21 12:59 Toxic Granulation Not Reportable 06/29/21 12:59 Toxic Vacuolation Not Reportable 06/29/21 12:59 Dohle Bodies Not Reportable 06/29/21 12:59 Pelger-Huet Anomaly Not Reportable 06/29/21 12:59 Ashlyn Rods Not Reportable 06/29/21 12:59 Platelet Estimate Consistent w auto 06/29/21 12:59 Clumped Platelets Not Reportable 06/29/21 12:59 Plt Clumps, EDTA Not Reportable 06/29/21 12:59 Large Platelets Not Reportable 06/29/21 12:59 Giant Platelets Not Reportable 06/29/21 12:59 Platelet Satelliting Not Reportable 06/29/21 12:59 Plt Morphology Comment Not Reportable 06/29/21 12:59 RBC Morphology Normal 06/29/21 12:59 Dimorphic RBCs Not Reportable 06/29/21 12:59 Polychromasia Not Reportable 06/29/21 12:59 Hypochromasia Not Reportable 06/29/21 12:59 Poikilocytosis Not Reportable 06/29/21 12:59 Anisocytosis Not Reportable 06/29/21 12:59 Microcytosis Not Reportable 06/29/21 12:59 Macrocytosis Not Reportable 06/29/21 12:59 Spherocytes Not Reportable 06/29/21 12:59 Pappenheimer Bodies Not Reportable 06/29/21 12:59 Sickle Cells Not Reportable 06/29/21 12:59 Target Cells Not Reportable 06/29/21 12:59 Tear Drop Cells Not Reportable 06/29/21 12:59 Ovalocytes Not Reportable 06/29/21 12:59 Helmet Cells Not Reportable 06/29/21 12:59 [place] Bodies Not Reportable 06/29/21 12:59 Samaria Rings Not Reportable 06/29/21 12:59 [place] Cells Not Reportable 06/29/21 12:59 Bite Cells Not Reportable 06/29/21 12:59 Crenated Cell Not Reportable 06/29/21 12:59 Elliptocytes Not Reportable 06/29/21 12:59 Acanthocytes (Spur) Not Reportable 06/29/21 12:59 Rouleaux Not Reportable 06/29/21 12:59 Hemoglobin C Crystals Not Reportable 06/29/21 12:59 Schistocytes Not Reportable 06/29/21 12:59 Malaria parasites Not Reportable 06/29/21 12:59 Geovanni Bodies Not Reportable 06/29/21 12:59 Hem Pathologist Commnt No 06/29/21 12:59 PT 14.7 Sec. (12.2-14.9) 06/29/21 15:15 INR 1.04 (0.87-1.13) 06/29/21 15:15 APTT 29.3 Sec. (24.2-36.6) 06/29/21 15:15 Sodium 137 mmol/L (137-145) 06/30/21 04:52 Potassium 4.2 mmol/L (3.6-5.0) D 06/30/21 04:52 Chloride 100.0 mmol/L (98-107) 06/30/21 04:52 Carbon Dioxide 13 mmol/L (22-30) L 06/30/21 04:52 Anion Gap 28 mmol/L 06/30/21 04:52 BUN 29 mg/dL (7-17) H 06/30/21 04:52 Creatinine 2.4 mg/dL (0.6-1.2) H 06/30/21 04:52 Estimated GFR 22 ml/min 06/30/21 04:52 BUN/Creatinine Ratio 12 % 06/30/21 04:52 Glucose 147 mg/dL (65-100) H 06/30/21 04:52 POC Glucose 99 mg/dL (70-105) 06/29/21 23:16 Lactic Acid 8.00 mmol/L (0.7-2.0) H* 06/29/21 16:43 Calcium 6.0 mg/dL (8.4-10.2) L D 06/30/21 04:52 Magnesium 2.10 mg/dL (1.7-2.3) 06/29/21 12:59 Total Bilirubin 0.60 mg/dL (0.1-1.2) 06/30/21 04:52 AST 214 units/L (5-40) H 06/30/21 04:52 ALT 89 units/L (7-56) H 06/30/21 04:52 Alkaline Phosphatase 100 units/L (35-129) 06/30/21 04:52 Total Protein 4.2 g/dL (6.3-8.2) L D 06/30/21 04:52 Albumin 1.3 g/dL (3.9-5) L 06/30/21 04:52 Albumin/Globulin Ratio 0.4 % 06/30/21 04:52 Lipase 9 units/L (13-60) L 06/29/21 12:59 HCG, Qual Negative (Negative) 06/29/21 13:55 Urine Color Car[place] (Yellow) 06/30/21 04:37 Urine Turbidity Cloudy (Clear) 06/30/21 04:37 Urine pH 5.0 (5.0-7.0) 06/30/21 04:37 Ur Specific [place] 1.017 (1.003-1.030) 06/30/21 04:37 Urine Protein 100 mg/dl mg/dL (Negative) 06/30/21 04:37 Urine Glucose (UA) 50 mg/dL (Negative) 06/30/21 04:37 Urine Ketones Neg mg/dL (Negative) 06/30/21 04:37 Urine Blood Sm (Negative) 06/30/21 04:37 Urine Nitrite Neg (Negative) 06/30/21 04:37 Urine Bilirubin Neg (Negative) 06/30/21 04:37 Urine Urobilinogen 4.0 mg/dL (<2.0) 06/30/21 04:37 Ur Leukocyte Esterase Neg (Negative) 06/30/21 04:37 Urine WBC (Auto) 105.0 /HPF (0.0-6.0) H 06/30/21 04:37 Urine RBC (Auto) 53.0 /HPF (0.0-6.0) 06/30/21 04:37 U Epithel Cells (Auto) 14.0 /HPF (0-13.0) H 06/30/21 04:37 Urine Bacteria (Auto) 1+ /HPF (Negative) 06/30/21 04:37 Blood Type O POSITIVE 06/29/21 15:20 Antibody Screen Negative 06/29/21 15:20 Microbiology: Microbiology 06/29/21 12:59 Peripheral/Venous Blood Culture - Preliminary Culture in Progress 06/29/21 12:59 Peripheral/Venous Blood Culture - Preliminary Culture in Progress [place]/IV: Voiding Method Indwelling Catheter Active Medications - Current Medications Current Medications: Generic Name Dose Route Start Last Admin Trade Name Freq PRN Reason Stop Dose Admin Acetaminophen 650 mg 06/29/21 20:01 Acetaminophen 650 Mg Rect Supp HI Q4H PRN Pain MILD(1-3)/Fever >100.5/PAYNE Hydromorphone HCl 0.5 mg 06/29/21 20:01 Hydromorphone 1 Mg/1 Ml Inj IV Q3H PRN Pain , Severe (7-10) Dextrose/Sodium Chloride 1,000 mls @ 100 mls/hr 06/29/21 21:00 06/30/21 00:17 D5ns IV 100 mls/hr DIRECT SOILA Administration Piperacillin Sod/Tazobactam Sod 2.25 gm in 50 mls @ 100 mls/hr 06/29/21 22:45 06/30/21 05:09 Zosyn/Ns 2.25 Gm/50ml IV 100 mls/hr Q6HR SOILA Administration Calcium Gluconate 2,000 mg/ 120 mls @ 660 mls/hr 06/30/21 06:58 Sodium Chloride IV 06/30/21 07:08 ONCE ONE Morphine Sulfate 2 mg 06/29/21 20:01 Morphine 2 Mg/1 Ml Inj IV Q4H PRN Pain, Moderate (4-6) Ondansetron HCl 4 mg 06/29/21 20:01 Ondansetron 4 Mg/2 Ml Inj IV Q8H PRN Nausea And Vomiting Sodium Chloride 10 ml 06/29/21 22:00 Sodium Chloride 0.9% 10 Ml Flush Syringe IV BID SOILA Sodium Chloride 10 ml 06/29/21 20:01 Sodium Chloride 0.9% 10 Ml Flush Syringe IV PRN PRN LINE FLUSH
[2021-06-30] MEDS ORDERED: LACTATED RINGERS 1,000 ML ONE (11:02)
[2021-06-30] MEDS ORDERED: LACTATED RINGERS 1,000 ML IV ONE (11:05)
--- NOTE | 2021-06-30 13:35 | Consultation ---
History of Present Illness - Reason for Consult Consult date: 06/30/21 pneumoperitoneum Requesting physician: ROSIE DASILVA - History of Present Illness The patient is a 45-year-old female with multiple psychiatric problems, polysubstance abuse admitted with diffuse abdominal pain. CT scan revealed pneumoperitoneum, was seen by general surgery, underwent a right colectomy with end ileostomy, omentectomy. ID was consulted for antibiotic management. Patie nt is afebrile. Review of Systems: Per HPI Past History Past Surgical History: Other (BTL) Social history: IV drug use Medications and Allergies Allergies Allergy/AdvReac Type Severity Reaction Status Date / Time No Known Allergies Allergy Verified 06/29/21 14:00 Home Medications Medication Instructions Recorded Confirmed Last Taken Type Cyclobenzaprine [Flexeril] 10 mg PO TID PRN #20 tablet 01/16/20 06/30/21 Unknown Rx Ibuprofen [Motrin 800 MG tab] 800 mg PO Q8HR PRN #15 tablet 01/16/20 06/30/21 Unknown Rx HYDROcodone/APAP 5-325 [[place] 1 each PO Q4HR PRN #15 tablet 06/22/21 06/30/21 Unknown Rx 5/325] Ibuprofen [Motrin 800 MG tab] 800 mg PO Q8HR PRN #15 tablet 06/22/21 06/30/21 Unknown Rx Active Meds: Active Medications Acetaminophen (Acetaminophen 650 Mg Rect Supp) 650 mg [place] Q4H PRN PRN Reason: Pain MILD(1-3)/Fever >100.5/PAYNE Hydromorphone HCl (Hydromorphone 1 Mg/1 Ml Inj) 0.5 mg IV Q3H PRN PRN Reason: Pain , Severe (7-10) Dextrose/Sodium Chloride (D5ns) 1,000 mls @ 100 mls/hr IV DIRECT SOILA Last Admin: 06/30/21 11:07 Dose: 100 mls/hr Documented by: Piperacillin Sod/Tazobactam Sod (Zosyn/Ns 2.25 Gm/50ml) 2.25 gm in 50 mls @ 100 mls/hr IV Q6HR SOILA Last Admin: 06/30/21 11:07 Dose: 100 mls/hr Documented by: Morphine Sulfate (Morphine 2 Mg/1 Ml Inj) 2 mg IV Q4H PRN PRN Reason: Pain, Moderate (4-6) Ondansetron HCl (Ondansetron 4 Mg/2 Ml Inj) 4 mg IV Q8H PRN PRN Reason: Nausea And Vomiting Sodium Chloride (Sodium Chloride 0.9% 10 Ml Flush Syringe) 10 ml IV BID SOILA Last Admin: 06/30/21 11:07 Dose: 10 ml Documented by: Sodium Chloride (Sodium Chloride 0.9% 10 Ml Flush Syringe) 10 ml IV PRN PRN PRN Reason: LINE FLUSH Physical Examination - Physical Exam Narrative exam: Physical Exam: Constitutional: Drowsy Head, Ears, Nose: Normocephalic, atraumatic. External ears, nose normal Eyes: Conjunctivae/corneas clear. No icterus. No ptosis. Neck: Supple, no meningeal signs Cardiovascular: S1, S2 + Respiratory: Good air entry, clear to auscultation bilaterally GI: Dressing present, ileostomy present Musculoskeletal: No pedal edema, no cyanosis. Skin: No rash or abscess Hem/Lymphatic: No palpable cervical or supraclavicular nodes. No lymphangitis Psych: Drowsy, no agitation Neurological: Drowsy - Constitutional Vitals: Vital Signs Temp Pulse Resp BP Pulse Ox 97.4 F L 112 H 28 H 89/56 96 06/30/21 12:00 06/30/21 07:00 06/30/21 07:00 06/30/21 07:00 06/30/21 08:54 Temperature -Last 24 Hours Temperature 97.4 F Temperature 96.7 F Temperature 97.2 F Temperature 97.4 F Temperature 97.5 F Results - Labs CBC & Chem 7: 06/30/21 04:52 06/30/21 04:52 Labs: Abnormal lab results 06/29/21 06/29/21 06/29/21 Range/Units 12:59 12:59 15:15 WBC 13.2 H (4.5-11.0) K/mm3 RBC (3.65-5.03) M/mm3 Plt Count 602 H (140-440) K/mm3 Lymph % (Auto) (13.4-35.0) % Lymph # (Auto) (1.2-5.4) K/mm3 Seg Neutrophils % (40.0-70.0) % Seg Neuts % (Manual) 84.0 H (40.0-70.0) % Lymphocytes % (Manual) 7.0 L (13.4-35.0) % Seg Neutrophils # (1.8-7.7) K/mm3 Seg Neutrophils # Man 11.1 H (1.8-7.7) K/mm3 Lymphocytes # (Manual) 0.9 L (1.2-5.4) K/mm3 Sodium 135 L (137-145) mmol/L Potassium 2.6 L* (3.6-5.0) mmol/L Chloride 89.0 L (98-107) mmol/L Carbon Dioxide 16 L (22-30) mmol/L BUN 25 H (7-17) mg/dL Creatinine 2.1 H (0.6-1.2) mg/dL Glucose 134 H (65-100) mg/dL Lactic Acid 8.70 H* (0.7-2.0) mmol/L Calcium 7.7 L (8.4-10.2) mg/dL AST (5-40) units/L ALT (7-56) units/L Alkaline Phosphatase 187 H (35-129) units/L Total Protein (6.3-8.2) g/dL Albumin 2.5 L (3.9-5) g/dL Lipase 9 L (13-60) units/L Urine WBC (Auto) (0.0-6.0) /HPF U Epithel Cells (Auto) (0-13.0) /HPF 06/29/21 06/30/21 06/30/21 Range/Units 16:43 04:37 04:52 WBC 12.2 H (4.5-11.0) K/mm3 RBC 3.25 L (3.65-5.03) M/mm3 Plt Count 467 H (140-440) K/mm3 Lymph % (Auto) 5.1 L (13.4-35.0) % Lymph # (Auto) 0.6 L (1.2-5.4) K/mm3 Seg Neutrophils % 90.0 H (40.0-70.0) % Seg Neuts % (Manual) (40.0-70.0) % Lymphocytes % (Manual) (13.4-35.0) % Seg Neutrophils # 11.0 H (1.8-7.7) K/mm3 Seg Neutrophils # Man (1.8-7.7) K/mm3 Lymphocytes # (Manual) (1.2-5.4) K/mm3 Sodium (137-145) mmol/L Potassium (3.6-5.0) mmol/L Chloride (98-107) mmol/L Carbon Dioxide (22-30) mmol/L BUN (7-17) mg/dL Creatinine (0.6-1.2) mg/dL Glucose (65-100) mg/dL Lactic Acid 8.00 H* (0.7-2.0) mmol/L Calcium (8.4-10.2) mg/dL AST (5-40) units/L ALT (7-56) units/L Alkaline Phosphatase (35-129) units/L Total Protein (6.3-8.2) g/dL Albumin (3.9-5) g/dL Lipase (13-60) units/L Urine WBC (Auto) 105.0 H (0.0-6.0) /HPF U Epithel Cells (Auto) 14.0 H (0-13.0) /HPF 06/30/21 Range/Units 04:52 WBC (4.5-11.0) K/mm3 RBC (3.65-5.03) M/mm3 Plt Count (140-440) K/mm3 Lymph % (Auto) (13.4-35.0) % Lymph # (Auto) (1.2-5.4) K/mm3 Seg Neutrophils % (40.0-70.0) % Seg Neuts % (Manual) (40.0-70.0) % Lymphocytes % (Manual) (13.4-35.0) % Seg Neutrophils # (1.8-7.7) K/mm3 Seg Neutrophils # Man (1.8-7.7) K/mm3 Lymphocytes # (Manual) (1.2-5.4) K/mm3 Sodium (137-145) mmol/L Potassium (3.6-5.0) mmol/L Chloride (98-107) mmol/L Carbon Dioxide 13 L (22-30) mmol/L BUN 29 H (7-17) mg/dL Creatinine 2.4 H (0.6-1.2) mg/dL Glucose 147 H (65-100) mg/dL Lactic Acid (0.7-2.0) mmol/L Calcium 6.0 L D (8.4-10.2) mg/dL AST 214 H (5-40) units/L ALT 89 H (7-56) units/L Alkaline Phosphatase (35-129) units/L Total Protein 4.2 L D (6.3-8.2) g/dL Albumin 1.3 L (3.9-5) g/dL Lipase (13-60) units/L Urine WBC (Auto) (0.0-6.0) /HPF U Epithel Cells (Auto) (0-13.0) /HPF Assessment and Plan Cultures: 06/29/2021 blood culture: No growth 06/29/2021 intra-abdominal culture: In process A/P: 45-year-old female with multiple psychiatric problems, polysubstance abuse admitted with diffuse abdominal pain: #Intra-abdominal sepsis: Pneumoperitoneum: Status post right colectomy with end ileostomy, omentectomy on 06/29/[address] Miranda. #Leukocytosis, reactive thrombocytosis: Secondary to above #ALEX versus CKD: Renally dose antibiotic #Polysubstance abuse Recs: -Ceftriaxone, Flagyl x 5 days postoperatively Chichi Hopson MD, FACP [facility] ([facility] O: [phone] F: [phone]
[2021-06-30] MEDS ORDERED: cefTRIAXone/NS 2 GM/100 ML 2 GM/100 ML BAG IV SCH (14:00)
--- NOTE | 2021-06-30 16:35 | Progress Note ---
Assessment and Plan - Patient Problems (1) Perforated abdominal viscus Current Visit: Yes Status: Acute Plan to address problem: 1) Check lactate 2) Continue Zosyn 3) Follow abdominal pus C&S 4) Begin wound dressings to abdomen 5) May dc NG tomorrow Subjective Date of service: 06/30/21 Patient Reports: Positive: no new complaints, feels better, pain is less Objective Vital Signs - 12hr 06/30/21 06/30/21 06/30/21 04:41 04:51 05:00 Temperature Pulse Rate 114 H 111 H 113 H Respiratory 26 H 27 H 27 H Rate Blood Pressure 89/58 89/58 88/49 O2 Sat by Pulse 96 94 95 Oximetry 06/30/21 06/30/21 06/30/21 05:11 05:21 05:30 Temperature Pulse Rate 114 H 114 H 112 H Respiratory 26 H 32 H 30 H Rate Blood Pressure 88/49 88/49 86/55 O2 Sat by Pulse 96 95 95 Oximetry 06/30/21 06/30/21 06/30/21 05:41 05:51 06:00 Temperature Pulse Rate 114 H 114 H 115 H Respiratory 28 H 24 26 H Rate Blood Pressure 88/49 88/49 95/57 O2 Sat by Pulse 95 95 96 Oximetry 06/30/21 06/30/21 06/30/21 06:03 06:11 06:21 Temperature 97.2 F L Pulse Rate 115 H 114 H Respiratory 27 H 26 H Rate Blood Pressure 95/57 95/57 O2 Sat by Pulse 96 96 Oximetry 06/30/21 06/30/21 06/30/21 06:30 06:41 06:51 Temperature Pulse Rate 115 H 109 H 111 H Respiratory 26 H 27 H 26 H Rate Blood Pressure 89/60 89/60 89/60 O2 Sat by Pulse 95 96 96 Oximetry 06/30/21 06/30/21 06/30/21 07:00 08:00 08:11 Temperature 96.7 F L Pulse Rate 112 H 113 H 113 H Respiratory 28 H 28 H 31 H Rate Blood Pressure 89/56 90/57 90/57 O2 Sat by Pulse 95 96 96 Oximetry 06/30/21 06/30/21 06/30/21 08:21 08:30 08:41 Temperature Pulse Rate 117 H 115 H 114 H Respiratory 35 H 29 H 28 H Rate Blood Pressure 90/57 90/60 90/60 O2 Sat by Pulse 96 96 96 Oximetry 06/30/21 06/30/21 06/30/21 08:51 08:54 09:00 Temperature Pulse Rate 115 H 111 H Respiratory 28 H 27 H Rate Blood Pressure 90/60 93/56 O2 Sat by Pulse 96 96 97 Oximetry 06/30/21 06/30/21 06/30/21 09:11 09:21 09:30 Temperature Pulse Rate 113 H 113 H 109 H Respiratory 27 H 27 H 29 H Rate Blood Pressure 93/56 93/56 89/58 O2 Sat by Pulse 96 95 96 Oximetry 06/30/21 06/30/21 06/30/21 09:41 09:51 10:00 Temperature Pulse Rate 111 H 111 H 109 H Respiratory 29 H 28 H 29 H Rate Blood Pressure 89/58 93/56 94/60 O2 Sat by Pulse 96 96 96 Oximetry 06/30/21 06/30/21 06/30/21 10:11 10:21 10:30 Temperature Pulse Rate 112 H 111 H 110 H Respiratory 28 H 29 H 35 H Rate Blood Pressure 94/60 94/60 88/56 O2 Sat by Pulse 95 95 97 Oximetry 06/30/21 06/30/21 06/30/21 10:41 10:51 11:00 Temperature Pulse Rate 114 H 113 H 116 H Respiratory 32 H 29 H 41 H Rate Blood Pressure 88/56 88/56 78/49 O2 Sat by Pulse 96 97 95 Oximetry 06/30/21 06/30/21 06/30/21 11:11 11:21 11:30 Temperature Pulse Rate 114 H 114 H 111 H Respiratory 40 H 37 H 29 H Rate Blood Pressure 75/51 89/46 91/58 O2 Sat by Pulse 94 96 95 Oximetry 06/30/21 06/30/21 06/30/21 11:41 11:50 12:00 Temperature 97.4 F L Pulse Rate 107 H 105 H 105 H Respiratory 29 H 26 H 27 H Rate Blood Pressure 91/58 91/58 94/61 O2 Sat by Pulse 99 100 99 Oximetry 06/30/21 06/30/21 06/30/21 12:11 12:21 12:30 Temperature Pulse Rate 103 H 107 H 108 H Respiratory 27 H 25 H 29 H Rate Blood Pressure 94/61 91/58 96/58 O2 Sat by Pulse 100 99 97 Oximetry 06/30/21 06/30/21 06/30/21 12:41 12:51 13:00 Temperature Pulse Rate 109 H 111 H 113 H Respiratory 27 H 27 H 38 H Rate Blood Pressure 96/58 96/58 83/55 O2 Sat by Pulse 97 96 96 Oximetry 06/30/21 06/30/21 06/30/21 13:11 13:21 13:30 Temperature Pulse Rate 101 H 107 H 115 H Respiratory 28 H 26 H 33 H Rate Blood Pressure 83/55 83/55 84/54 O2 Sat by Pulse 96 97 96 Oximetry 06/30/21 06/30/21 06/30/21 13:41 13:50 14:00 Temperature Pulse Rate 112 H 112 H 110 H Respiratory 29 H 36 H 29 H Rate Blood Pressure 84/54 84/54 87/60 O2 Sat by Pulse 97 97 95 Oximetry 06/30/21 06/30/21 06/30/21 14:11 14:21 14:30 Temperature Pulse Rate 115 H 111 H 110 H Respiratory 35 H 27 H 28 H Rate Blood Pressure 87/60 87/60 86/58 O2 Sat by Pulse 98 95 96 Oximetry 06/30/21 06/30/21 06/30/21 14:41 14:51 15:00 Temperature Pulse Rate 116 H 112 H 106 H Respiratory 39 H 36 H 38 H Rate Blood Pressure 86/58 86/58 87/54 O2 Sat by Pulse 96 97 100 Oximetry 06/30/21 06/30/21 06/30/21 15:11 15:21 15:30 Temperature Pulse Rate 112 H 111 H 108 H Respiratory 37 H 31 H 28 H Rate Blood Pressure 87/54 87/54 81/50 O2 Sat by Pulse 88 96 98 Oximetry 06/30/21 06/30/21 06/30/21 15:41 15:51 16:00 Temperature Pulse Rate 108 H 107 H 111 H Respiratory 27 H 26 H 26 H Rate Blood Pressure 81/50 81/50 90/51 O2 Sat by Pulse 99 99 99 Oximetry 06/30/21 16:11 Temperature Pulse Rate 101 H Respiratory 27 H Rate Blood Pressure 90/51 O2 Sat by Pulse 98 Oximetry - Abdomen soft, bowel sounds hypoactive (Appropriately TTP. Stoma is pink. ) - Labs 06/30/21 04:52 06/30/21 04:52 Diabetes panel 06/30/21 Range/Units 04:52 Sodium 137 (137-145) mmol/L Potassium 4.2 D (3.6-5.0) mmol/L Chloride 100.0 (98-107) mmol/L Carbon Dioxide 13 L (22-30) mmol/L BUN 29 H (7-17) mg/dL Creatinine 2.4 H (0.6-1.2) mg/dL Glucose 147 H (65-100) mg/dL Calcium 6.0 L D (8.4-10.2) mg/dL AST 214 H (5-40) units/L ALT 89 H (7-56) units/L Alkaline Phosphatase 100 (35-129) units/L Total Protein 4.2 L D (6.3-8.2) g/dL Albumin 1.3 L (3.9-5) g/dL Calcium panel 06/30/21 Range/Units 04:52 Calcium 6.0 L D (8.4-10.2) mg/dL Albumin 1.3 L (3.9-5) g/dL Pituitary panel 06/30/21 Range/Units 04:52 Sodium 137 (137-145) mmol/L Potassium 4.2 D (3.6-5.0) mmol/L Chloride 100.0 (98-107) mmol/L Carbon Dioxide 13 L (22-30) mmol/L BUN 29 H (7-17) mg/dL Creatinine 2.4 H (0.6-1.2) mg/dL Glucose 147 H (65-100) mg/dL Calcium 6.0 L D (8.4-10.2) mg/dL Adrenal panel 06/30/21 Range/Units 04:52 Sodium 137 (137-145) mmol/L Potassium 4.2 D (3.6-5.0) mmol/L Chloride 100.0 (98-107) mmol/L Carbon Dioxide 13 L (22-30) mmol/L BUN 29 H (7-17) mg/dL Creatinine 2.4 H (0.6-1.2) mg/dL Glucose 147 H (65-100) mg/dL Calcium 6.0 L D (8.4-10.2) mg/dL Total Bilirubin 0.60 (0.1-1.2) mg/dL AST 214 H (5-40) units/L ALT 89 H (7-56) units/L Alkaline Phosphatase 100 (35-129) units/L Total Protein 4.2 L D (6.3-8.2) g/dL Albumin 1.3 L (3.9-5) g/dL
[2021-06-30] MEDS: metroNIDAZOLE/NS 500 MG/100 ML 500 MG/100 ML BAG IV SCH ×2 (18:59→23:33)
[2021-06-30] MEDS: SODIUM HYPOCHLORITE, DAKIN'S FULL STRENGTH (0.5%) 473 ML TOPICAL SOLN TP SCH (19:07)
[2021-06-30 19:35] LABS: Creatinine,Urine < 4.2 mg/dL (0.1-20.0)
[2021-06-30] MEDS: POTASSIUM CHLORIDE 10 MEQ 10 MEQ/100 ML BAG IV SCH (19:38)
[2021-06-30] MEDS ORDERED: VANCOMYCIN 1,500 MG in SODIUM CHLORIDE 0.9% 500 ML 500 ML IV SCH (20:00)
[2021-06-30] MEDS: MORPHINE 2 MG/1 ML INJ IV PRN (20:01)
[2021-07-01] MEDS: MORPHINE 2 MG/1 ML INJ IV PRN ×2 (00:24→06:09)
[2021-07-01] MEDS: metroNIDAZOLE/NS 500 MG/100 ML 500 MG/100 ML BAG IV SCH (06:04)
[2021-07-01] MEDS: SODIUM HYPOCHLORITE, DAKIN'S FULL STRENGTH (0.5%) 473 ML TOPICAL SOLN TP SCH ×2 (06:07→17:19)
[2021-07-01] MEDS: D5W/0.9% NACL 1,000 ML IV SCH ×2 (06:10→23:02)
[2021-07-01 06:52] LABS: Hematocrit 23.5 % (30.3-42.9); Hemoglobin 7.7 gm/dl (10.1-14.3); Mean Corpuscular HGB Conc 33 % (30-34); Mean Corpuscular Volume 91 fl (79-97); Platelet Count 416 K/mm3 (140-440); Red Blood Count 2.57 M/mm3 (3.65-5.03); Red Cell Distribution Width 14.7 % (13.2-15.2)
[2021-07-01 07:20] LABS: Albumin 1.3 g/dL (3.9-5)
[2021-07-01 07:27] LABS: Calcium 5.3 mg/dL (8.4-10.2)
[2021-07-01] MEDS ORDERED: CALCIUM GLUCONATE 2,000 MG in SODIUM CHLORIDE 0.9% 100 ML IV SCH (09:00)
[2021-07-01] MEDS: POTASSIUM CHLORIDE 10 MEQ 10 MEQ/100 ML BAG IV SCH ×4 (10:27→17:53)
[2021-07-01 11:29] LABS: Hematocrit 22.9 % (30.3-42.9); Hemoglobin 7.4 gm/dl (10.1-14.3)
--- NOTE | 2021-07-01 11:52 | Cat Scan Report ---
CT ABDOMEN AND PELVIS WITHOUT CONTRAST INDICATION / CLINICAL INFORMATION: Concern for abdominal hemorrhage. TECHNIQUE: Axial CT images were obtained through the abdomen and pelvis without IV contrast. All CT scans at this location are performed using CT dose reduction for ALARA by means of automated exposure control. COMPARISON: CT 06/29/2021 FINDINGS: LOWER CHEST: Scattered cysts and opacities in the lung bases. LIVER: No significant abnormality. GALLBLADDER: Gallbladder is mildly distended, likely secondary to fasting state. BILE DUCTS: No significant abnormality. PANCREAS: No significant abnormality. SPLEEN: No significant abnormality. ADRENALS: No significant abnormality. RIGHT KIDNEY / URETER: No significant abnormality. LEFT KIDNEY / URETER: No significant abnormality. STOMACH / SMALL BOWEL: Esophagogastric tube terminates in the stomach. COLON: Status post partial colectomy of the ascending colon. APPENDIX: Appendectomy. PERITONEUM: There is simple appearing small volume free fluid predominantly in the right hemiabdomen, which may be postsurgical. Tiny amount of free air is likely postsurgical. LYMPH NODES: No significant adenopathy. AORTA / ARTERIES: No significant abnormality. IVC / VEINS: No significant abnormality. URINARY BLADDER: Collapsed around [place] catheter. REPRODUCTIVE ORGANS: No significant abnormality. ADDITIONAL FINDINGS: Open subcutaneous wound at anterior abdomen containing packing material. Left lo wer quadrant ostomy. Mild anasarca. SKELETAL SYSTEM: No significant abnormality. IMPRESSION: 1. Status post partial colectomy and ostomy placement. Small volume simple appearing fluid in the abd omen is favored to be postsurgical. No definite findings of hemorrhage within limitations of noncontr ast exam. 2. Bibasilar patchy opacities are nonspecific but likely represent infectious/inflammatory etiology. Signer Name: Naif Preston MD Signed: 07/01/2021 11:48 AM Workstation Name: [email or web address]
[2021-07-01] MEDS: HYDROmorphone 1 MG/1 ML INJ IV PRN (12:02)
[2021-07-01] MEDS: PIPERACIL/TAZOBACTA 4.5/NS 100 4.5 GM/100 ML VIAL IV SCH ×2 (12:10→22:53)
--- NOTE | 2021-07-01 13:22 | Progress Note ---
Assessment and Plan Cultures: 06/29/2021 blood culture: No growth 06/29/2021 intra-abdominal culture: In process A/P: 45-year-old female with multiple psychiatric problems, polysubstance abuse admitted with diffuse abdominal pain: #Intra-abdominal sepsis: Pneumoperitoneum: Status post right colectomy with end ileostomy, omentectomy on 06/29/[address] Miranda. #Leukocytosis, reactive thrombocytosis: Secondary to above #ALEX versus CKD: Renally dose antibiotic #Polysubstance abuse Recs: -Ceftriaxone/Flagyl exchanged for Zosyn due to unavailability of IV Flagyl and inability to take p.o. Complete 5 days. Walter Rivas MD [facility] ([facility] O: [phone] F: [phone] Subjective Date of service: 07/01/21 Interval history: Afebrile, white count elevated at 16.5 today. Imaging personally reviewed: CT abdomen pelvis: Postsurgical fluid in the abdomen. Objective - Exam Narrative Exam: Physical Exam: Constitutional: Drowsy Head, Ears, Nose: Normocephalic, atraumatic. External ears, nose normal Eyes: Conjunctivae/corneas clear. No icterus. No ptosis. Neck: Supple, no meningeal signs Cardiovascular: S1, S2 + Respiratory: Good air entry, clear to auscultation bilaterally GI: Dressing present, ileostomy present Musculoskeletal: No pedal edema, no cyanosis. Skin: No rash or abscess Hem/Lymphatic: No palpable cervical or supraclavicular nodes. Psych: Drowsy, no agitation Neurological: Drowsy - Constitutional Vitals: Vital Signs Temp Pulse Resp BP Pulse Ox 97.5 F L 106 H 27 H 105/57 96 07/01/21 12:00 07/01/21 11:31 07/01/21 11:31 07/01/21 11:31 07/01/21 11:31 Temperature -Last 24 Hours Temperature 97.5 F Temperature 97.7 F Temperature 97.8 F Temperature 98.7 F Temperature 97.2 F - Labs CBC & Chem 7: 07/01/21 10:59 07/01/21 12:47 Labs: Abnormal lab results 06/30/21 07/01/21 07/01/21 Range/Units 18:37 06:00 06:00 WBC 16.5 H (4.5-11.0) K/mm3 RBC 2.57 L (3.65-5.03) M/mm3 Hgb 7.7 L (10.1-14.3) gm/dl Hct 23.5 L D (30.3-42.9) % Potassium (3.6-5.0) mmol/L Carbon Dioxide (22-30) mmol/L BUN (7-17) mg/dL Creatinine (0.6-1.2) mg/dL Glucose (65-100) mg/dL Lactic Acid 3.90 H* 2.40 H* (0.7-2.0) mmol/L Calcium (8.4-10.2) mg/dL AST (5-40) units/L ALT (7-56) units/L Total Protein (6.3-8.2) g/dL Albumin (3.9-5) g/dL 07/01/21 07/01/21 07/01/21 Range/Units 06:00 08:00 10:59 WBC (4.5-11.0) K/mm3 RBC (3.65-5.03) M/mm3 Hgb 7.4 L (10.1-14.3) gm/dl Hct 22.9 L (30.3-42.9) % Potassium 3.4 L (3.6-5.0) mmol/L Carbon Dioxide 18 L (22-30) mmol/L BUN 37 H (7-17) mg/dL Creatinine 2.1 H (0.6-1.2) mg/dL Glucose 110 H (65-100) mg/dL Lactic Acid 2.10 H* (0.7-2.0) mmol/L Calcium 5.3 L* (8.4-10.2) mg/dL AST 262 H (5-40) units/L ALT 224 H (7-56) units/L Total Protein 4.4 L (6.3-8.2) g/dL Albumin 1.3 L (3.9-5) g/dL 07/01/21 Range/Units 12:47 WBC (4.5-11.0) K/mm3 RBC (3.65-5.03) M/mm3 Hgb (10.1-14.3) gm/dl Hct (30.3-42.9) % Potassium (3.6-5.0) mmol/L Carbon Dioxide 20 L (22-30) mmol/L BUN 36 H (7-17) mg/dL Creatinine 1.8 H (0.6-1.2) mg/dL Glucose (65-100) mg/dL Lactic Acid (0.7-2.0) mmol/L Calcium (8.4-10.2) mg/dL AST (5-40) units/L ALT (7-56) units/L Total Protein (6.3-8.2) g/dL Albumin (3.9-5) g/dL
[2021-07-01 13:26] LABS: Calcium 5.3 mg/dL (8.4-10.2)
--- NOTE | 2021-07-01 13:36 | Event Note ---
Date: 07/01/21 Reviewed imaging. No evidence of extravasation or pseudoaneurysm on any of the CT or imaging studies. If there continues to be concern for GI bleed, consider GI consult. Consider nuclear medicine GI bleeding study given renal insufficiency.
--- NOTE | 2021-07-01 16:23 | Progress Note ---
Assessment and Plan Assessment and plan: 45-year-old female who presented with diffuse abdominal pain. CT scan demonstrated pneumoperitoneum due to perforation. She was taken for emergent surgery. S/p R colectomy with end ileostomy. Patient currently stable. #Sepsis #Perforated abdominal viscus -POD #1: Right colectomy with end ileostomy -Status post Zosyn -ID consulted for antibiotic recommendations, will start Rocephin and Flagyl x5 days (06/30- 07/05) -General Surgery following #Acute blood loss anemia - hemoglobin drop from 10.2 -->7.4 - CT A/P noncontrast (unable to get CTA abdomen/pelvis) negative for hematoma or active bleeding - consulted Vascular Radiology for possible intraabdominal bleed; no need for intervention at this time. - will continue to monitor #Hypotension- improving -BP with low BP overnight -responsive to fluids -will give 1 bolus of LR -continue D5 infusion, low threshold to start pressors if needed #Acute kidney injury -creatinine 2.1 - dropped from 2.4 (baseline 1.0) -Nephrology consulted; appreciate recs -infusing D5W #Lactic acidosis- resolved -lactate 8.0--> 1.8 -likely secondary to perforated bowel -repeat ordered #Hypocalcemia - Ca 5.7 - Repleted; continue to monitor #Hypokalemia - K 3.4; repleted -will continue to monitor and replete #Urinary tract infection -continue rocephin Disposition Plan: Continue medical management Total Time Spent with Patient (Minutes): 60 History Interval history: Decrease in hemoglobin from 10 to 7.4 overnight. Hospitalist Physical - Constitutional Vitals: Temp Pulse Resp BP Pulse Ox 97.5 F L 88 23 103/56 96 07/01/21 12:00 07/01/21 13:30 07/01/21 13:30 07/01/21 13:30 07/01/21 13:30 General appearance: Present: no acute distress, well-nourished, obese - EENT Eyes: Present: PERRL, EOM intact ENT: clear oral mucosa, dentition normal - Neck Neck: Present: supple, normal ROM - Respiratory Respiratory effort: normal - Cardiovascular Rhythm: regular Heart Sounds: Present: S1 & S2 - Extremities Extremities: no ischemia, pulses intact, pulses symmetrical, normal temperature, normal color Peripheral Pulses: within normal limits - Abdominal General gastrointestinal: soft, non-tender, non-distended, normal bowel sounds - Integumentary Integumentary: Present: clear, warm, dry - Psychiatric Psychiatric: appropriate mood/affect, other (unable to assess given medical condition) - Neurologic Neurologic: other (unable to assess given medical condition) - Allied Health Allied health notes reviewed: nursing Results - Labs CBC & Chem 7: 07/01/21 10:59 07/01/21 12:47 Labs: Laboratory Last Values WBC 16.5 K/mm3 (4.5-11.0) H 07/01/21 06:00 RBC 2.57 M/mm3 (3.65-5.03) L 07/01/21 06:00 Hgb 7.4 gm/dl (10.1-14.3) L 07/01/21 10:59 Hct 22.9 % (30.3-42.9) L 07/01/21 10:59 MCV 91 fl (79-97) 07/01/21 06:00 MCH 30 pg (28-32) 07/01/21 06:00 MCHC 33 % (30-34) 07/01/21 06:00 RDW 14.7 % (13.2-15.2) 07/01/21 06:00 Plt Count 416 K/mm3 (140-440) 07/01/21 06:00 Lymph % (Auto) 5.1 % (13.4-35.0) L 06/30/21 04:52 Bennett % (Auto) 4.1 % (0.0-7.3) 06/30/21 04:52 Eos % (Auto) 0.6 % (0.0-4.3) 06/30/21 04:52 Baso % (Auto) 0.2 % (0.0-1.8) 06/30/21 04:52 Lymph # (Auto) 0.6 K/mm3 (1.2-5.4) L 06/30/21 04:52 Bennett # (Auto) 0.5 K/mm3 (0.0-0.8) 06/30/21 04:52 Eos # (Auto) 0.1 K/mm3 (0.0-0.4) 06/30/21 04:52 Baso # (Auto) 0.0 K/mm3 (0.0-0.1) 06/30/21 04:52 Add Manual Diff Complete 06/29/21 12:59 Total Counted 100 06/29/21 12:59 Seg Neutrophils % 90.0 % (40.0-70.0) H 06/30/21 04:52 Seg Neuts % (Manual) 84.0 % (40.0-70.0) H 06/29/21 12:59 Band Neutrophils % 8.0 % 06/29/21 12:59 Lymphocytes % (Manual) 7.0 % (13.4-35.0) L 06/29/21 12:59 Metamyelocytes % 1.0 % 06/29/21 12:59 Nucleated RBC % Not Reportable 06/29/21 12:59 Seg Neutrophils # 11.0 K/mm3 (1.8-7.7) H 06/30/21 04:52 Seg Neutrophils # Man 11.1 K/mm3 (1.8-7.7) H 06/29/21 12:59 Band Neutrophils # 1.1 K/mm3 06/29/21 12:59 Lymphocytes # (Manual) 0.9 K/mm3 (1.2-5.4) L 06/29/21 12:59 Abs React Lymphs (Man) 0.0 K/mm3 06/29/21 12:59 Monocytes # (Manual) 0.0 K/mm3 (0.0-0.8) 06/29/21 12:59 Eosinophils # (Manual) 0.0 K/mm3 (0.0-0.4) 06/29/21 12:59 Basophils # (Manual) 0.0 K/mm3 (0.0-0.1) 06/29/21 12:59 Metamyelocytes # 0.1 K/mm3 06/29/21 12:59 Myelocytes # 0.0 K/mm3 06/29/21 12:59 Promyelocytes # 0.0 K/mm3 06/29/21 12:59 Blast Cells # 0.0 K/mm3 06/29/21 12:59 WBC Morphology Not Reportable 06/29/21 12:59 WBC Morphology TNR 06/29/21 12:59 Hypersegmented Neuts Not Reportable 06/29/21 12:59 Hyposegmented Neuts Not Reportable 06/29/21 12:59 Hypogranular Neuts Not Reportable 06/29/21 12:59 Smudge Cells Not Reportable 06/29/21 12:59 Toxic Granulation Not Reportable 06/29/21 12:59 Toxic Vacuolation Not Reportable 06/29/21 12:59 Dohle Bodies Not Reportable 06/29/21 12:59 Pelger-Huet Anomaly Not Reportable 06/29/21 12:59 Ashlyn Rods Not Reportable 06/29/21 12:59 Platelet Estimate Consistent w auto 06/29/21 12:59 Clumped Platelets Not Reportable 06/29/21 12:59 Plt Clumps, EDTA Not Reportable 06/29/21 12:59 Large Platelets Not Reportable 06/29/21 12:59 Giant Platelets Not Reportable 06/29/21 12:59 Platelet Satelliting Not Reportable 06/29/21 12:59 Plt Morphology Comment Not Reportable 06/29/21 12:59 RBC Morphology Normal 06/29/21 12:59 Dimorphic RBCs Not Reportable 06/29/21 12:59 Polychromasia Not Reportable 06/29/21 12:59 Hypochromasia Not Reportable 06/29/21 12:59 Poikilocytosis Not Reportable 06/29/21 12:59 Anisocytosis Not Reportable 06/29/21 12:59 Microcytosis Not Reportable 06/29/21 12:59 Macrocytosis Not Reportable 06/29/21 12:59 Spherocytes Not Reportable 06/29/21 12:59 Pappenheimer Bodies Not Reportable 06/29/21 12:59 Sickle Cells Not Reportable 06/29/21 12:59 Target Cells Not Reportable 06/29/21 12:59 Tear Drop Cells Not Reportable 06/29/21 12:59 Ovalocytes Not Reportable 06/29/21 12:59 Helmet Cells Not Reportable 06/29/21 12:59 Caban-Bledsoe Bodies Not Reportable 06/29/21 12:59 Verbank Rings Not Reportable 06/29/21 12:59 Lila Cells Not Reportable 06/29/21 12:59 Bite Cells Not Reportable 06/29/21 12:59 Crenated Cell Not Reportable 06/29/21 12:59 Elliptocytes Not Reportable 06/29/21 12:59 Acanthocytes (Spur) Not Reportable 06/29/21 12:59 Rouleaux Not Reportable 06/29/21 12:59 Hemoglobin C Crystals Not Reportable 06/29/21 12:59 Schistocytes Not Reportable 06/29/21 12:59 Malaria parasites Not Reportable 06/29/21 12:59 Geovanni Bodies Not Reportable 06/29/21 12:59 Hem Pathologist Commnt No 06/29/21 12:59 PT 14.7 Sec. (12.2-14.9) 06/29/21 15:15 INR 1.04 (0.87-1.13) 06/29/21 15:15 APTT 29.3 Sec. (24.2-36.6) 06/29/21 15:15 Sodium 139 mmol/L (137-145) 07/01/21 12:47 Potassium 3.7 mmol/L (3.6-5.0) 07/01/21 12:47 Chloride 103.5 mmol/L (98-107) 07/01/21 12:47 Carbon Dioxide 20 mmol/L (22-30) L 07/01/21 12:47 Anion Gap 19 mmol/L 07/01/21 12:47 BUN 36 mg/dL (7-17) H 07/01/21 12:47 Creatinine 1.8 mg/dL (0.6-1.2) H 07/01/21 12:47 Estimated GFR 30 ml/min 07/01/21 12:47 BUN/Creatinine Ratio 20 % 07/01/21 12:47 Glucose 94 mg/dL (65-100) 07/01/21 12:47 POC Glucose 99 mg/dL (70-105) 06/29/21 23:16 Lactic Acid 1.80 mmol/L (0.7-2.0) 07/01/21 10:59 Calcium 5.3 mg/dL (8.4-10.2) L* 07/01/21 12:47 Magnesium 2.10 mg/dL (1.7-2.3) 06/29/21 12:59 Total Bilirubin 0.30 mg/dL (0.1-1.2) 07/01/21 06:00 AST 262 units/L (5-40) H 07/01/21 06:00 ALT 224 units/L (7-56) H 07/01/21 06:00 Alkaline Phosphatase 94 units/L (35-129) 07/01/21 06:00 Total Protein 4.4 g/dL (6.3-8.2) L 07/01/21 06:00 Albumin 1.3 g/dL (3.9-5) L 07/01/21 06:00 Albumin/Globulin Ratio 0.4 % 07/01/21 06:00 Lipase 9 units/L (13-60) L 06/29/21 12:59 HCG, Qual Negative (Negative) 06/29/21 13:55 Urine Color Carola (Yellow) 06/30/21 04:37 Urine Turbidity Cloudy (Clear) 06/30/21 04:37 Urine pH 5.0 (5.0-7.0) 06/30/21 04:37 Ur Specific [place] 1.017 (1.003-1.030) 06/30/21 04:37 Urine Protein 100 mg/dl mg/dL (Negative) 06/30/21 04:37 Urine Glucose (UA) 50 mg/dL (Negative) 06/30/21 04:37 Urine Ketones Neg mg/dL (Negative) 06/30/21 04:37 Urine Blood Sm (Negative) 06/30/21 04:37 Urine Nitrite Neg (Negative) 06/30/21 04:37 Urine Bilirubin Neg (Negative) 06/30/21 04:37 Urine Urobilinogen 4.0 mg/dL (<2.0) 06/30/21 04:37 Ur Leukocyte Esterase Neg (Negative) 06/30/21 04:37 Urine WBC (Auto) 105.0 /HPF (0.0-6.0) H 06/30/21 04:37 Urine RBC (Auto) 53.0 /HPF (0.0-6.0) 06/30/21 04:37 U Epithel Cells (Auto) 14.0 /HPF (0-13.0) H 06/30/21 04:37 Urine Bacteria (Auto) 1+ /HPF (Negative) 06/30/21 04:37 Urine Creatinine < 4.2 mg/dL (0.1-20.0) 06/30/21 15:36 Urine Sodium 25 mmol/L 06/30/21 15:36 Coronavirus (PCR) Negative (Negative) 06/30/21 Unknown Blood Type O POSITIVE 06/29/21 15:20 Antibody Screen Negative 06/29/21 15:20 Microbiology: Microbiology 06/29/21 Unknown Abdomen Surgical Culture - Final Escherichia Coli Escherichia Coli#2 06/29/21 Unknown Abdomen Anaerobic Culture - Preliminary 06/29/21 12:59 Peripheral/Venous Blood Culture - Preliminary NO GROWTH AFTER 24 HOURS 06/29/21 12:59 Peripheral/Venous Blood Culture - Preliminary NO GROWTH AFTER 24 HOURS Shelton/IV: Voiding Method Indwelling Catheter Active Medications - Current Medications Current Medications: Generic Name Dose Route Start Last Admin Trade Name Freq PRN Reason Stop Dose Admin Acetaminophen 650 mg 06/29/21 20:01 Acetaminophen 650 Mg Rect Supp RI Q4H PRN Pain MILD(1-3)/Fever >100.5/PAYNE Hydromorphone HCl 0.5 mg 06/29/21 20:01 07/01/21 12:02 Hydromorphone 1 Mg/1 Ml Inj IV 0.5 mg Q3H PRN Administration Pain , Severe (7-10) Dextrose/Sodium Chloride 1,000 mls @ 100 mls/hr 06/29/21 21:00 07/01/21 06:10 D5ns IV 100 mls/hr DIRECT SOILA Administration Piperacillin Sod/Tazobactam Sod 4.5 gm in 100 mls @ 200 mls/hr 07/01/21 11:00 07/01/21 12:10 Zosyn/Ns 4.5gm/100ml IV 07/08/21 11:29 200 mls/hr Q12H SOILA Administration Protocol Morphine Sulfate 2 mg 06/29/21 20:01 07/01/21 06:09 Morphine 2 Mg/1 Ml Inj IV 2 mg Q4H PRN Administration Pain, Moderate (4-6) Ondansetron HCl 4 mg 06/29/21 20:01 Ondansetron 4 Mg/2 Ml Inj IV Q8H PRN Nausea And Vomiting Sodium Chloride 10 ml 06/29/21 22:00 07/01/21 10:26 Sodium Chloride 0.9% 10 Ml Flush Syringe IV 10 ml BID SOILA Administration Sodium Chloride 10 ml 06/29/21 20:01 Sodium Chloride 0.9% 10 Ml Flush Syringe IV PRN PRN LINE FLUSH Sodium Hypochlorite 1 applic 06/30/21 17:00 07/01/21 06:07 Sodium Hypochlorite, Dakin's Full Strength (0.5%) 473 Ml Topical Soln TP 1 applicatio Q12H SOILA Administration Nutrition/Malnutrition Assess - Dietary Evaluation Nutrition/Malnutrition Findings: Nutrition Notes Start: 06/30/21 15:52 Freq: Status: Active Protocol: Document 07/01/21 10:27 JORGE (Rec: 07/01/21 10:56 JORGE [id number]) Nutrition Notes 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 Current Diet NPO (since D 06/29). Labs/Tests 05/31: K 3.4, CO2 18, BUN 37, Cr 2.1, Glu 110, Ca 5.3, AST 262, ALT 224, Tpro 4.4, Alb 1. 3, Lactic ac 2.1. Pertinent Medications 05/31: D5ns 1000ml @ 100 ml/hr , others nutritionally unremarkable. Height 5 ft 2 in Weight 102.058 kg [place] Body Weight (kg) 50.00 BMI 41.1 Weight Status Obese Subjective/Other Information RD consult for Skin risk assessment, and risk for malnutrition. Percent of energy/protein needs met: Pt is currently on NPO, but planned to d/c NG on 07/02. Burn Absent Trauma Absent GI Symptoms Other Food Allergy No Skin Integrity/Comment Clear, warm, dry. Current % PO Other Minimum of two criteria No #1 Nutrition Diagnosis No nutrition diagnosis at this time Comments: Pt currently on NPO. Is patient on ventilator? No Is Patient Ambulatory and/or Out of Bed No REE-([facility]-confined to bed) 1945.692 Kcal/Kg value to use for calculation 20 Approximate Energy Requirements Using 2041 kcal/Kg Calculation Used for Recommendations Kcal/kg Additional Notes Protein: 1.2-1.5 g/JKg; 60-75 g/day (from IBW+Surgery). Fluids 1 ml/Kcal, or as per MD . Nutrition Intervention Change Diet Order: Continue NPO as per MD. Goal #1 Maintain body weight within +/ -3% of current BWt during LOS. Goal #2 Reach and maintain acceptable chemistry lab values during LOS. Follow-Up By: 07/03/21 Additional Comments Continue monitoring Hydration and BM; when pertinent, food tolerance and %PO intake of meals. - Attestation Statement I have reviewed and agreed w/ Malnutrition eval & tx plan: Yes
[2021-07-01] MEDS ORDERED: CALCIUM GLUCONATE 2,000 MG in SODIUM CHLORIDE 0.9% 100 ML IV ONE (16:26)
--- NOTE | 2021-07-01 17:47 | Progress Note ---
Assessment and Plan - Patient Problems (1) Perforated abdominal viscus Current Visit: Yes Status: Acute Plan to address problem: 1) Continue NG 2) Strict NPO 3) AXR, CBC and BMP in the am 4) Continue wet to drys to abdomen 5) Follow ID recommendations Subjective Date of service: 07/01/21 Patient Reports: Positive: no new complaints, feels better, pain is less, no flatus, no bowel movement Objective Vital Signs - 12hr 07/01/21 07/01/21 07/01/21 06:00 06:09 06:30 Temperature Pulse Rate 97 H 106 H Pulse Rate [ From Monitor] Respiratory 26 H 35 H 37 H Rate Blood Pressure 123/57 109/64 O2 Sat by Pulse 100 100 Oximetry 07/01/21 07/01/21 07/01/21 06:39 07:00 07:30 Temperature Pulse Rate 107 H 104 H Pulse Rate [ From Monitor] Respiratory 20 22 20 Rate Blood Pressure 117/66 112/69 O2 Sat by Pulse 100 100 Oximetry 07/01/21 07/01/21 07/01/21 08:00 08:30 09:00 Temperature Pulse Rate 111 H 100 H 100 H Pulse Rate [ 110 H From Monitor] Respiratory 24 20 Rate Blood Pressure 112/58 126/63 O2 Sat by Pulse 98 100 Oximetry 07/01/21 07/01/21 07/01/21 09:01 09:30 09:31 Temperature Pulse Rate 106 H 100 H Pulse Rate [ From Monitor] Respiratory 20 24 Rate Blood Pressure 126/63 124/53 O2 Sat by Pulse 100 100 98 Oximetry 07/01/21 07/01/21 07/01/21 10:00 10:30 11:01 Temperature Pulse Rate 100 H 99 H 98 H Pulse Rate [ From Monitor] Respiratory 21 21 34 H Rate Blood Pressure 106/62 116/61 116/61 O2 Sat by Pulse 98 100 100 Oximetry 07/01/21 07/01/21 07/01/21 11:31 12:00 12:30 Temperature 97.5 F L Pulse Rate 106 H 95 H 97 H Pulse Rate [ 110 H From Monitor] Respiratory 27 H 26 H 23 Rate Blood Pressure 105/57 105/63 98/57 O2 Sat by Pulse 96 96 97 Oximetry 07/01/21 07/01/21 07/01/21 13:00 13:30 14:00 Temperature Pulse Rate 104 H 88 99 H Pulse Rate [ From Monitor] Respiratory 24 23 23 Rate Blood Pressure 98/53 103/56 99/59 O2 Sat by Pulse 95 96 97 Oximetry 07/01/21 07/01/21 07/01/21 14:30 15:00 15:30 Temperature Pulse Rate 97 H 90 91 H Pulse Rate [ From Monitor] Respiratory 24 24 23 Rate Blood Pressure 103/51 105/61 103/60 O2 Sat by Pulse 97 95 95 Oximetry 07/01/21 07/01/21 07/01/21 16:00 16:30 17:00 Temperature Pulse Rate 95 H 99 H 101 H Pulse Rate [ 107 H From Monitor] Respiratory 25 H 24 37 H Rate Blood Pressure 103/58 99/65 94/55 O2 Sat by Pulse 94 94 96 Oximetry - Abdomen soft, bowel sounds hypoactive, not distended, not rebound, not guarding (Appropriately TTP) - Labs 07/01/21 10:59 07/01/21 12:47 Diabetes panel 07/01/21 07/01/21 Range/Units 06:00 12:47 Sodium 138 139 (137-145) mmol/L Potassium 3.4 L 3.7 (3.6-5.0) mmol/L Chloride 103.4 103.5 (98-107) mmol/L Carbon Dioxide 18 L 20 L (22-30) mmol/L BUN 37 H 36 H (7-17) mg/dL Creatinine 2.1 H 1.8 H (0.6-1.2) mg/dL Glucose 110 H 94 (65-100) mg/dL Calcium 5.3 L* 5.3 L* (8.4-10.2) mg/dL AST 262 H (5-40) units/L ALT 224 H (7-56) units/L Alkaline Phosphatase 94 (35-129) units/L Total Protein 4.4 L (6.3-8.2) g/dL Albumin 1.3 L (3.9-5) g/dL Calcium panel 07/01/21 07/01/21 Range/Units 06:00 12:47 Calcium 5.3 L* 5.3 L* (8.4-10.2) mg/dL Albumin 1.3 L (3.9-5) g/dL Pituitary panel 07/01/21 07/01/21 Range/Units 06:00 12:47 Sodium 138 139 (137-145) mmol/L Potassium 3.4 L 3.7 (3.6-5.0) mmol/L Chloride 103.4 103.5 (98-107) mmol/L Carbon Dioxide 18 L 20 L (22-30) mmol/L BUN 37 H 36 H (7-17) mg/dL Creatinine 2.1 H 1.8 H (0.6-1.2) mg/dL Glucose 110 H 94 (65-100) mg/dL Calcium 5.3 L* 5.3 L* (8.4-10.2) mg/dL Adrenal panel 07/01/21 07/01/21 Range/Units 06:00 12:47 Sodium 138 139 (137-145) mmol/L Potassium 3.4 L 3.7 (3.6-5.0) mmol/L Chloride 103.4 103.5 (98-107) mmol/L Carbon Dioxide 18 L 20 L (22-30) mmol/L BUN 37 H 36 H (7-17) mg/dL Creatinine 2.1 H 1.8 H (0.6-1.2) mg/dL Glucose 110 H 94 (65-100) mg/dL Calcium 5.3 L* 5.3 L* (8.4-10.2) mg/dL Total Bilirubin 0.30 (0.1-1.2) mg/dL AST 262 H (5-40) units/L ALT 224 H (7-56) units/L Alkaline Phosphatase 94 (35-129) units/L Total Protein 4.4 L (6.3-8.2) g/dL Albumin 1.3 L (3.9-5) g/dL
[2021-07-02] MEDS: HYDROmorphone 1 MG/1 ML INJ IV PRN ×4 (02:11→20:15)
[2021-07-02 05:30] LABS: Hematocrit 21.7 % (30.3-42.9); Hemoglobin 7.3 gm/dl (10.1-14.3); Mean Corpuscular HGB Conc 34 % (30-34); Mean Corpuscular Volume 92 fl (79-97); Platelet Count 411 K/mm3 (140-440); Red Blood Count 2.35 M/mm3 (3.65-5.03)
[2021-07-02 05:40] LABS: Calcium 6.7 mg/dL (8.4-10.2)
[2021-07-02] MEDS: SODIUM HYPOCHLORITE, DAKIN'S FULL STRENGTH (0.5%) 473 ML TOPICAL SOLN TP SCH ×2 (06:29→17:00)
[2021-07-02 06:33] LABS: Total Cells Counted 100
[2021-07-02 06:34] LABS: Platelet Estimate Consistent w Auto; RBC Morphology Normal
[2021-07-02] MEDS ORDERED: PIPERACIL/TAZOBACTA 4.5/NS 100 4.5 GM/100 ML VIAL IV SCH (08:00)
[2021-07-02] MEDS ORDERED: cefTRIAXone/NS 1 GM/50 ML 1 GM/50 ML BAG IV SCH (08:08)
[2021-07-02] MEDS: cefTRIAXone/NS 2 GM/100 ML 2 GM/100 ML BAG IV SCH (10:25)
[2021-07-02] MEDS: D5W/0.9% NACL 1,000 ML IV SCH (10:31)
--- NOTE | 2021-07-02 11:55 | Progress Note ---
Assessment and Plan - Patient Problems (1) Perforated abdominal viscus Current Visit: Yes Status: Acute Plan to address problem: 1) CT abdomen and pelvis to r/o intra-abdominal abscess. Will hold on contrast for now since Cr yesterday was 1.8. Subjective Date of service: 07/02/21 Patient Reports: Positive: no new complaints, feels better. Negative: flatus, no bowel movement Objective Vital Signs - 12hr 07/02/21 07/02/21 07/02/21 00:00 00:25 00:30 Temperature Pulse Rate 100 H 92 H 97 H Respiratory 34 H 23 Rate Blood Pressure 99/57 113/60 O2 Sat by Pulse 92 91 Oximetry 07/02/21 07/02/21 07/02/21 01:00 01:30 02:01 Temperature Pulse Rate 92 H 89 101 H Respiratory 23 23 34 H Rate Blood Pressure 112/58 116/63 104/61 O2 Sat by Pulse 93 91 94 Oximetry 07/02/21 07/02/21 07/02/21 02:11 02:30 03:00 Temperature Pulse Rate 91 H 88 Respiratory 38 H 20 19 Rate Blood Pressure 109/52 117/62 O2 Sat by Pulse 98 100 Oximetry 07/02/21 07/02/21 07/02/21 03:30 03:55 04:00 Temperature 99.3 F Pulse Rate 96 H 86 Respiratory 21 20 Rate Blood Pressure 121/72 117/64 O2 Sat by Pulse 100 100 Oximetry 07/02/21 07/02/21 07/02/21 04:30 05:00 05:30 Temperature Pulse Rate 81 85 86 Respiratory 20 20 22 Rate Blood Pressure 116/67 108/63 116/61 O2 Sat by Pulse 100 100 100 Oximetry 07/02/21 07/02/21 07/02/21 06:00 06:30 07:00 Temperature Pulse Rate 83 86 78 Respiratory 21 20 19 Rate Blood Pressure 114/58 120/63 107/52 O2 Sat by Pulse 100 100 100 Oximetry - Abdomen soft, bowel sounds hypoactive, not distended, not rebound, not guarding (Appr opriately TTP. Stoma is pink without output.) - Labs 07/02/21 05:05 07/02/21 05:05 Diabetes panel 07/01/21 07/02/21 Range/Units 12:47 05:05 Sodium 139 142 (137-145) mmol/L Potassium 3.7 3.5 L (3.6-5.0) mmol/L Chloride 103.5 108.4 H (98-107) mmol/L Carbon Dioxide 20 L 21 L (22-30) mmol/L BUN 36 H 28 H (7-17) mg/dL Creatinine 1.8 H 1.1 (0.6-1.2) mg/dL Glucose 94 116 H (65-100) mg/dL Calcium 5.3 L* 6.7 L D (8.4-10.2) mg/dL Calcium panel 07/01/21 07/02/21 Range/Units 12:47 05:05 Calcium 5.3 L* 6.7 L D (8.4-10.2) mg/dL Phosphorus 3.20 (2.5-4.5) mg/dL Pituitary panel 07/01/21 07/02/21 Range/Units 12:47 05:05 Sodium 139 142 (137-145) mmol/L Potassium 3.7 3.5 L (3.6-5.0) mmol/L Chloride 103.5 108.4 H (98-107) mmol/L Carbon Dioxide 20 L 21 L (22-30) mmol/L BUN 36 H 28 H (7-17) mg/dL Creatinine 1.8 H 1.1 (0.6-1.2) mg/dL Glucose 94 116 H (65-100) mg/dL Calcium 5.3 L* 6.7 L D (8.4-10.2) mg/dL Adrenal panel 07/01/21 07/02/21 Range/Units 12:47 05:05 Sodium 139 142 (137-145) mmol/L Potassium 3.7 3.5 L (3.6-5.0) mmol/L Chloride 103.5 108.4 H (98-107) mmol/L Carbon Dioxide 20 L 21 L (22-30) mmol/L BUN 36 H 28 H (7-17) mg/dL Creatinine 1.8 H 1.1 (0.6-1.2) mg/dL Glucose 94 116 H (65-100) mg/dL Calcium 5.3 L* 6.7 L D (8.4-10.2) mg/dL - Imaging Additional Studies: Lactic acid now normal.
--- NOTE | 2021-07-02 13:00 | Progress Note ---
Assessment and Plan Assessment and plan: 45-year-old female who presented with diffuse abdominal pain. CT scan demonstrated pneumoperitoneum due to perforation. She was taken for emergent surgery. S/p R colectomy with end ileostomy. Patient currently stable. #E. coli sepsis #Perforated abdominal viscus -POD #2: Right colectomy with end ileostomy -General Surgery; appreciate recs -Continue strict n.p.o. status until general surgery gives green light. -Abdominal wound cultures positive for 2 different E. coli strains with sensitivity to Rocephin and limited sensitivity to Zosyn. Discontinuing Zosyn (only on for 1 day) and restarting Rocephin 1 g every 24 hours for 4 additional days (total antibiotic course 5 days). Not adding Flagyl due to limited IV availability. -ID consulted; appreciate recs -Pending CT abdomen/pelvis without contrast (in the setting of ALEX) to assess for possible intra-abdominal abscess. #Acute blood loss anemia-stable - hemoglobin drop from 10.2 -->7.4-->7.3 - CT A/P noncontrast (unable to get CTA abdomen/pelvis) negative for hematoma or active bleeding - consulted Vascular Radiology for possible intraabdominal bleed; no need for intervention at this time. - will continue to monitor #Hypotension-resolved -BP with low BP overnight -responsive to fluids -will give 1 bolus of LR -continue D5 infusion, low threshold to start pressors if needed #Acute kidney injury-resolved -creatinine1.1 -Nephrology consulted; appreciate recs -infusing D5W #Lactic acidosis- resolved -lactate 8.0--> 1.8 -likely secondary to perforated bowel -repeat ordered #Hypocalcemia - Ca 6.7 - Repleted; continue to monitor #Hypokalemia-resolved - K 3.4; repleted -will continue to monitor and replete #Urinary tract infection -continue rocephin #Discharge planning -Patient will require PT/OT evaluation once more clinically stable. Disposition Plan: Continue medical management. Total Time Spent with Patient (Minutes): 40 minutes. History Interval history: No acute events overnight. Hospitalist Physical - Constitutional Vitals: Temp Pulse Resp BP Pulse Ox 99.3 F 78 19 107/52 100 07/02/21 03:55 07/02/21 07:00 07/02/21 07:00 07/02/21 07:00 07/02/21 07:00 General appearance: Present: no acute distress, well-nourished, obese - EENT Eyes: Present: PERRL, EOM intact ENT: other (NG tube in place) - Neck Neck: Present: supple, normal ROM - Respiratory Respiratory effort: normal Respiratory: bilateral: CTA - Cardiovascular Rhythm: regular Heart Sounds: Present: S1 & S2 - Extremities Extremities: no ischemia, pulses intact, pulses symmetrical, No edema, normal temperature, normal color Peripheral Pulses: within normal limits - Abdominal General gastrointestinal: soft, distended, other (Left-sided ostomy; bandaged vertical incision along abdomen.) - Integumentary Integumentary: Present: clear, warm, dry - Psychiatric Psychiatric: other (Patient sleeping after Dilaudid administration. Unable to assess.) - Neurologic Neurologic: other (Patient sleeping after Dilaudid administration. Unable to assess.) - Allied Health Allied health notes reviewed: nursing Results - Labs CBC & Chem 7: 07/02/21 05:05 07/02/21 05:05 Labs: Laboratory Last Values WBC 18.5 K/mm3 (4.5-11.0) H 07/02/21 05:05 RBC 2.35 M/mm3 (3.65-5.03) L 07/02/21 05:05 Hgb 7.3 gm/dl (10.1-14.3) L 07/02/21 05:05 Hct 21.7 % (30.3-42.9) L 07/02/21 05:05 MCV 92 fl (79-97) 07/02/21 05:05 MCH 31 pg (28-32) 07/02/21 05:05 MCHC 34 % (30-34) 07/02/21 05:05 RDW 15.0 % (13.2-15.2) 07/02/21 05:05 Plt Count 411 K/mm3 (140-440) 07/02/21 05:05 Lymph % (Auto) 5.1 % (13.4-35.0) L 06/30/21 04:52 [place] % (Auto) 4.1 % (0.0-7.3) 06/30/21 04:52 Eos % (Auto) 0.6 % (0.0-4.3) 06/30/21 04:52 Baso % (Auto) 0.2 % (0.0-1.8) 06/30/21 04:52 Lymph # (Auto) 0.6 K/mm3 (1.2-5.4) L 06/30/21 04:52 [place] # (Auto) 0.5 K/mm3 (0.0-0.8) 06/30/21 04:52 Eos # (Auto) 0.1 K/mm3 (0.0-0.4) 06/30/21 04:52 Baso # (Auto) 0.0 K/mm3 (0.0-0.1) 06/30/21 04:52 Add Manual Diff Complete 07/02/21 05:05 Total Counted 100 07/02/21 05:05 Seg Neutrophils % 90.0 % (40.0-70.0) H 06/30/21 04:52 Seg Neuts % (Manual) 92.0 % (40.0-70.0) H 07/02/21 05:05 Band Neutrophils % 8.0 % 06/29/21 12:59 Lymphocytes % (Manual) 8.0 % (13.4-35.0) L 07/02/21 05:05 Metamyelocytes % 1.0 % 06/29/21 12:59 Nucleated RBC % 1.0 % (0.0-0.9) H 07/02/21 05:05 Seg Neutrophils # 11.0 K/mm3 (1.8-7.7) H 06/30/21 04:52 Seg Neutrophils # Man 17.0 K/mm3 (1.8-7.7) H 07/02/21 05:05 Band Neutrophils # 0.0 K/mm3 07/02/21 05:05 Lymphocytes # (Manual) 1.5 K/mm3 (1.2-5.4) 07/02/21 05:05 Abs React Lymphs (Man) 0.0 K/mm3 07/02/21 05:05 Monocytes # (Manual) 0.0 K/mm3 (0.0-0.8) 07/02/21 05:05 Eosinophils # (Manual) 0.0 K/mm3 (0.0-0.4) 07/02/21 05:05 Basophils # (Manual) 0.0 K/mm3 (0.0-0.1) 07/02/21 05:05 Metamyelocytes # 0.0 K/mm3 07/02/21 05:05 Myelocytes # 0.0 K/mm3 07/02/21 05:05 Promyelocytes # 0.0 K/mm3 07/02/21 05:05 Blast Cells # 0.0 K/mm3 07/02/21 05:05 WBC Morphology Not Reportable 07/02/21 05:05 Hypersegmented Neuts Not Reportable 07/02/21 05:05 Hyposegmented Neuts Not Reportable 07/02/21 05:05 Hypogranular Neuts Not Reportable 07/02/21 05:05 Smudge Cells Not Reportable 07/02/21 05:05 Toxic Granulation Not Reportable 07/02/21 05:05 Toxic Vacuolation Not Reportable 07/02/21 05:05 Dohle Bodies Not Reportable 07/02/21 05:05 Pelger-Huet Anomaly Not Reportable 07/02/21 05:05 Ashlyn Rods Not Reportable 07/02/21 05:05 Platelet Estimate Consistent w auto 07/02/21 05:05 Clumped Platelets Not Reportable 07/02/21 05:05 Plt Clumps, EDTA Not Reportable 07/02/21 05:05 Large Platelets Not Reportable 07/02/21 05:05 Giant Platelets Not Reportable 07/02/21 05:05 Platelet Satelliting Not Reportable 07/02/21 05:05 Plt Morphology Comment Not Reportable 07/02/21 05:05 RBC Morphology Normal 07/02/21 05:05 Dimorphic RBCs Not Reportable 07/02/21 05:05 Polychromasia Not Reportable 07/02/21 05:05 Hypochromasia Not Reportable 07/02/21 05:05 Poikilocytosis Not Reportable 07/02/21 05:05 Anisocytosis Not Reportable 07/02/21 05:05 Microcytosis Not Reportable 07/02/21 05:05 Macrocytosis Not Reportable 07/02/21 05:05 Spherocytes Not Reportable 07/02/21 05:05 Pappenheimer Bodies Not Reportable 07/02/21 05:05 Sickle Cells Not Reportable 07/02/21 05:05 Target Cells Not Reportable 07/02/21 05:05 Tear Drop Cells Not Reportable 07/02/21 05:05 Ovalocytes Not Reportable 07/02/21 05:05 Helmet Cells Not Reportable 07/02/21 05:05 [place] Bodies Not Reportable 07/02/21 05:05 Camilla Rings Not Reportable 07/02/21 05:05 Lila Cells Not Reportable 07/02/21 05:05 Bite Cells Not Reportable 07/02/21 05:05 Crenated Cell Not Reportable 07/02/21 05:05 Elliptocytes Not Reportable 07/02/21 05:05 Acanthocytes (Spur) Not Reportable 07/02/21 05:05 Rouleaux Not Reportable 07/02/21 05:05 Hemoglobin C Crystals Not Reportable 07/02/21 05:05 Schistocytes Not Reportable 07/02/21 05:05 Malaria parasites Not Reportable 07/02/21 05:05 Geovanni Bodies Not Reportable 07/02/21 05:05 Hem Pathologist Commnt No 07/02/21 05:05 PT 14.7 Sec. (12.2-14.9) 06/29/21 15:15 INR 1.04 (0.87-1.13) 06/29/21 15:15 APTT 29.3 Sec. (24.2-36.6) 06/29/21 15:15 Sodium 142 mmol/L (137-145) 07/02/21 05:05 Potassium 3.5 mmol/L (3.6-5.0) L 07/02/21 05:05 Chloride 108.4 mmol/L (98-107) H 07/02/21 05:05 Carbon Dioxide 21 mmol/L (22-30) L 07/02/21 05:05 Anion Gap 16 mmol/L 07/02/21 05:05 BUN 28 mg/dL (7-17) H 07/02/21 05:05 Creatinine 1.1 mg/dL (0.6-1.2) 07/02/21 05:05 Estimated GFR 54 ml/min 07/02/21 05:05 BUN/Creatinine Ratio 25 % 07/02/21 05:05 Glucose 116 mg/dL (65-100) H 07/02/21 05:05 POC Glucose 99 mg/dL (70-105) 06/29/21 23:16 Lactic Acid 1.20 mmol/L (0.7-2.0) 07/02/21 05:05 Calcium 6.7 mg/dL (8.4-10.2) L D 07/02/21 05:05 Phosphorus 3.20 mg/dL (2.5-4.5) 07/02/21 05:05 Magnesium 2.10 mg/dL (1.7-2.3) 07/02/21 05:05 Total Bilirubin 0.30 mg/dL (0.1-1.2) 07/01/21 06:00 AST 262 units/L (5-40) H 07/01/21 06:00 ALT 224 units/L (7-56) H 07/01/21 06:00 Alkaline Phosphatase 94 units/L (35-129) 07/01/21 06:00 Total Protein 4.4 g/dL (6.3-8.2) L 07/01/21 06:00 Albumin 1.3 g/dL (3.9-5) L 07/01/21 06:00 Albumin/Globulin Ratio 0.4 % 07/01/21 06:00 Lipase 9 units/L (13-60) L 06/29/21 12:59 HCG, Qual Negative (Negative) 06/29/21 13:55 Urine Color [place] (Yellow) 06/30/21 04:37 Urine Turbidity Cloudy (Clear) 06/30/21 04:37 Urine pH 5.0 (5.0-7.0) 06/30/21 04:37 Ur Specific [place] 1.017 (1.003-1.030) 06/30/21 04:37 Urine Protein 100 mg/dl mg/dL (Negative) 06/30/21 04:37 Urine Glucose (UA) 50 mg/dL (Negative) 06/30/21 04:37 Urine Ketones Neg mg/dL (Negative) 06/30/21 04:37 Urine Blood Sm (Negative) 06/30/21 04:37 Urine Nitrite Neg (Negative) 06/30/21 04:37 Urine Bilirubin Neg (Negative) 06/30/21 04:37 Urine Urobilinogen 4.0 mg/dL (<2.0) 06/30/21 04:37 Ur Leukocyte Esterase Neg (Negative) 06/30/21 04:37 Urine WBC (Auto) 105.0 /HPF (0.0-6.0) H 06/30/21 04:37 Urine RBC (Auto) 53.0 /HPF (0.0-6.0) 06/30/21 04:37 U Epithel Cells (Auto) 14.0 /HPF (0-13.0) H 06/30/21 04:37 Urine Bacteria (Auto) 1+ /HPF (Negative) 06/30/21 04:37 Urine Creatinine < 4.2 mg/dL (0.1-20.0) 06/30/21 15:36 Urine Sodium 25 mmol/L 06/30/21 15:36 Coronavirus (PCR) Negative (Negative) 06/30/21 Unknown Blood Type O POSITIVE 06/29/21 15:20 Antibody Screen Negative 06/29/21 15:20 Microbiology: Microbiology 06/29/21 12:59 Peripheral/Venous Blood Culture - Preliminary NO GROWTH AFTER 48 HOURS 06/29/21 12:59 Peripheral/Venous Blood Culture - Preliminary NO GROWTH AFTER 48 HOURS 06/29/21 Unknown Abdomen Surgical Culture - Final Escherichia Coli Escherichia Coli#2 06/29/21 Unknown Abdomen Anaerobic Culture - Preliminary [place]/IV: Voiding Method Indwelling Catheter Active Medications - Current Medications Current Medications: Generic Name Dose Route Start Last Admin Trade Name Freq PRN Reason Stop Dose Admin Acetaminophen 650 mg 06/29/21 20:01 Acetaminophen 650 Mg Rect Supp AL Q4H PRN Pain MILD(1-3)/Fever >100.5/PAYNE Hydromorphone HCl 0.5 mg 06/29/21 20:01 07/02/21 10:24 Hydromorphone 1 Mg/1 Ml Inj IV 0.5 mg Q3H PRN Administration Pain , Severe (7-10) Dextrose/Sodium Chloride 1,000 mls @ 100 mls/hr 06/29/21 21:00 07/02/21 10:31 D5ns IV 100 mls/hr DIRECT SOILA Administration Ceftriaxone Sodium 2 gm in 100 mls @ 200 mls/hr 07/02/21 10:00 07/02/21 10:25 Rocephin/Ns 2 Gm/100 Ml IV 07/05/21 10:29 200 mls/hr Q24H SOILA Administration Protocol Morphine Sulfate 2 mg 06/29/21 20:01 07/01/21 06:09 Morphine 2 Mg/1 Ml Inj IV 2 mg Q4H PRN Administration Pain, Moderate (4-6) Ondansetron HCl 4 mg 06/29/21 20:01 Ondansetron 4 Mg/2 Ml Inj IV Q8H PRN Nausea And Vomiting Sodium Chloride 10 ml 06/29/21 22:00 07/01/21 22:53 Sodium Chloride 0.9% 10 Ml Flush Syringe IV 10 ml BID SOILA Administration Sodium Chloride 10 ml 06/29/21 20:01 Sodium Chloride 0.9% 10 Ml Flush Syringe IV PRN PRN LINE FLUSH Sodium Hypochlorite 1 applic 06/30/21 17:00 07/02/21 06:29 Sodium Hypochlorite, Dakin's Full Strength (0.5%) 473 Ml Topical Soln TP 1 applicatio Q12H SOILA Administration Nutrition/Malnutrition Assess - Dietary Evaluation Nutrition/Malnutrition Findings: Nutrition Notes Start: 06/30/21 15:52 Freq: Status: Active Protocol: Document 07/01/21 10:27 JORGE (Rec: 07/01/21 10:56 JORGE [id number]) Nutrition Notes Need for Assessment generated from: public affairs manager,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 Current Diet NPO (since D 06/29). Labs/Tests 05/31: K 3.4, CO2 18, BUN 37, Cr 2.1, Glu 110, Ca 5.3, AST 262, ALT 224, Tpro 4.4, Alb 1. 3, Lactic ac 2.1. Pertinent Medications 05/31: D5ns 1000ml @ 100 ml/hr , others nutritionally unremarkable. Height 5 ft 2 in Weight 102.058 kg [place] Body Weight (kg) 50.00 BMI 41.1 Weight Status Obese Subjective/Other Information RD consult for Skin risk assessment, and risk for malnutrition. Percent of energy/protein needs met: Pt is currently on NPO, but planned to d/c NG on 07/02. Burn Absent Trauma Absent GI Symptoms Other Food Allergy No Skin Integrity/Comment Clear, warm, dry. Current % PO Other Minimum of two criteria No #1 Nutrition Diagnosis No nutrition diagnosis at this time Comments: Pt currently on NPO. Is patient on ventilator? No Is Patient Ambulatory and/or Out of Bed No REE-([facility]-confined to bed) 1945.692 Kcal/Kg value to use for calculation 20 Approximate Energy Requirements Using 1 kcal/Kg Calculation Used for Recommendations Kcal/kg Additional Notes Protein: 1.2-1.5 g/JKg; 60-75 g/day (from IBW+Surgery). Fluids 1 ml/Kcal, or as per MD . Nutrition Intervention Change Diet Order: Continue NPO as per MD. Goal #1 Maintain body weight within +/ -3% of current BWt during LOS. Goal #2 Reach and maintain acceptable chemistry lab values during LOS. Follow-Up By: 07/03/21 Additional Comments Continue monitoring Hydration and BM; when pertinent, food tolerance and %PO intake of meals. - Attestation Statement I have reviewed and agreed w/ Malnutrition eval & tx plan: Yes
--- NOTE | 2021-07-02 14:45 | Progress Note ---
Assessment and Plan Cultures: 06/29/2021 blood culture: No growth 06/29/2021 intra-abdominal culture: In process A/P: 45-year-old female with multiple psychiatric problems, polysubstance abuse admitted with diffuse abdominal pain: #Intra-abdominal sepsis: Pneumoperitoneum: Status post right colectomy with end ileostomy, omentectomy on 06/29/[address] Miranda. #Leukocytosis, reactive thrombocytosis: Secondary to above #ALEX versus CKD: Renally dose antibiotic #Polysubstance abuse Recs: -Continue IV Zosyn pending repeat CT abdomen pelvis. Walter Rivas MD [facility] ([facility] O: [phone] F: [phone] Subjective Date of service: 07/02/21 Interval history: Afebrile, white count 18.5. Surgical cultures growing 06/29/2011 with 2 isolates of E. coli 1 pansensitive 1 withseveral resistances. She is currently on Zosyn, both isolates sensitive to Zosyn. Objective - Exam Narrative Exam: Physical Exam: Constitutional: Drowsy Head, Ears, Nose: Normocephalic, atraumatic. External ears, nose normal Eyes: Conjunctivae/corneas clear. No icterus. No ptosis. Neck: Supple, no meningeal signs Cardiovascular: S1, S2 + Respiratory: Good air entry, clear to auscultation bilaterally GI: Dressing present, ileostomy present Musculoskeletal: No pedal edema, no cyanosis. Skin: No rash or abscess Hem/Lymphatic: No palpable cervical or supraclavicular nodes. Psych: Drowsy, no agitation Neurological: Drowsy - Constitutional Vitals: Vital Signs Temp Pulse Resp BP Pulse Ox 99.3 F 78 19 107/52 100 07/02/21 03:55 07/02/21 07:00 07/02/21 07:00 07/02/21 07:00 07/02/21 07:00 Temperature -Last 24 Hours Temperature 99.3 F - Labs CBC & Chem 7: 07/02/21 05:05 07/02/21 05:05 Labs: Abnormal lab results 07/02/21 07/02/21 Range/Units 05:05 05:05 WBC 18.5 H (4.5-11.0) K/mm3 RBC 2.35 L (3.65-5.03) M/mm3 Hgb 7.3 L (10.1-14.3) gm/dl Hct 21.7 L (30.3-42.9) % Seg Neuts % (Manual) 92.0 H (40.0-70.0) % Lymphocytes % (Manual) 8.0 L (13.4-35.0) % Nucleated RBC % 1.0 H (0.0-0.9) % Seg Neutrophils # Man 17.0 H (1.8-7.7) K/mm3 Potassium 3.5 L (3.6-5.0) mmol/L Chloride 108.4 H (98-107) mmol/L Carbon Dioxide 21 L (22-30) mmol/L BUN 28 H (7-17) mg/dL Glucose 116 H (65-100) mg/dL Calcium 6.7 L D (8.4-10.2) mg/dL
--- NOTE | 2021-07-02 17:48 | Cat Scan Report ---
CT ABDOMEN AND PELVIS WITHOUT CONTRAST INDICATION / CLINICAL INFORMATION: Increasing WBC - r/o intra-abd or pelvic abscess. TECHNIQUE: Axial CT images were obtained through the abdomen and pelvis without IV contrast. All CT scans at this location are performed using CT dose reduction for ALARA by means of automated exposure control. COMPARISON: 07/01/2021 FINDINGS: LOWER CHEST: Consolidations are noted in the bilateral lower lobes with a trace right and small left pleural effusion. AORTA / ARTERIES: No significant abnormality. IVC / VEINS: No significant abnormality. LYMPH NODES: No significant adenopathy. COLON: Patient status post partial colectomy of the right colon. APPENDIX: Appendectomy. STOMACH / SMALL BOWEL: An enteric tube terminates in the stomach. Patient is status post diverging le ft lower quadrant ileostomy. PERITONEUM: Again seen is free fluid within the right hemiabdomen which spills into the pelvis. This free fluid does not appear significantly changed compared to previous CT yesterday. No free air. No f luid collection. LIVER: No significant abnormality. GALLBLADDER: No significant abnormality. BILE DUCTS: No significant abnormality. PANCREAS: No significant abnormality. SPLEEN: No significant abnormality. ADRENALS: No significant abnormality. RIGHT KIDNEY / URETER: No significant abnormality. LEFT KIDNEY / URETER: No significant abnormality. URINARY BLADDER: [place] catheter is seen within the urinary bladder. REPRODUCTIVE ORGANS: No significant abnormality. SKELETAL SYSTEM: No significant abnormality. ADDITIONAL FINDINGS: Again seen is a large soft tissue defect within the anterior abdomen from prior surgical incision. There is redemonstrated soft tissue induration of the bilateral flanks and thighs. IMPRESSION: 1. The appearance of the abdomen and pelvis is very similar to yesterday's CT. No organized fluid col lection. There are persistent bibasilar opacities which may represent infectious process. Signer Name: Herman Gonzales DO Signed: 07/02/2021 5:44 PM Workstation Name: [id number]
[2021-07-02] MEDS: MORPHINE 2 MG/1 ML INJ IV PRN (23:27)
[2021-07-03] MEDS: D5W/0.9% NACL 1,000 ML IV SCH (02:59)
[2021-07-03] MEDS: HYDROmorphone 1 MG/1 ML INJ IV PRN ×5 (05:11→20:25)
[2021-07-03] MEDS: SODIUM HYPOCHLORITE, DAKIN'S FULL STRENGTH (0.5%) 473 ML TOPICAL SOLN TP SCH ×2 (05:12→18:00)
[2021-07-03 05:26] LABS: Hematocrit 20.4 % (30.3-42.9); Mean Corpuscular HGB Conc 34 % (30-34); Mean Corpuscular Volume 91 fl (79-97); Platelet Count 422 K/mm3 (140-440); Red Blood Count 2.24 M/mm3 (3.65-5.03); Red Cell Distribution Width 14.5 % (13.2-15.2)
[2021-07-03 05:38] LABS: Blood Urea Nitrogen 18 mg/dL (7-17); Calcium 6.9 mg/dL (8.4-10.2); Hemolysis Index 9
[2021-07-03 05:41] LABS: BUN/Creatinine Ratio 36
[2021-07-03 06:44] LABS: Total Cells Counted 100
[2021-07-03 06:45] LABS: Band Neutrophils # (Manual) 0.2 K/mm3; Myelocytes # (Manual) 0.2 K/mm3
[2021-07-03 06:46] LABS: Platelet Estimate Consistent w Auto
[2021-07-03] MEDS: cefTRIAXone/NS 2 GM/100 ML 2 GM/100 ML BAG IV SCH (09:14)
--- NOTE | 2021-07-03 09:18 | XRay Report ---
ABDOMEN 2 VIEW(S) INDICATION / CLINICAL INFORMATION: Assess s/p bowel perforation. COMPARISON: None available. FINDINGS: TUBES / LINES: NG tube has tip in body of stomach BOWEL GAS PATTERN: No significant abnormality. FREE AIR / EXTRALUMINAL GAS: None seen. ADDITIONAL FINDINGS: No significant additional findings. IMPRESSION: 1. No significant abnormality. Signer Name: Brendan Cummings MD Signed: 07/03/2021 9:14 AM Workstation Name: [id number]
[2021-07-03] MEDS ORDERED: CALCIUM GLUCONATE 2,000 MG in SODIUM CHLORIDE 0.9% 100 ML IV ONE (10:00)
[2021-07-03] MEDS: POTASSIUM CHLORIDE 10 MEQ 10 MEQ/100 ML BAG IV SCH ×5 (10:54→21:50)
--- NOTE | 2021-07-03 14:28 | Progress Note ---
Assessment and Plan Cultures: 06/29/2021 blood culture: No growth 06/29/2021 intra-abdominal culture: In process A/P: 45-year-old female with multiple psychiatric problems, polysubstance abuse admitted with diffuse abdominal pain: #Intra-abdominal sepsis: Pneumoperitoneum: Status post right colectomy with end ileostomy, omentectomy on 06/29/[address] Miranda. #Leukocytosis, reactive thrombocytosis: Secondary to above #ALEX versus CKD: Renally dose antibiotic #Polysubstance abuse Recs: -Continue IV Zosyn for now given persistent leukocytosis without evidence of abscess on CT. Walter Rivas MD [facility] ([facility]) O: [phone] F: [phone] Subjective Date of service: 07/03/21 Interval history: Afebrile, white count 19 Imaging personally reviewed: Abdomen pelvis CT: No organized fluid collections. Objective - Exam Narrative Exam: Physical Exam: Constitutional: Drowsy Head, Ears, Nose: Normocephalic, atraumatic. External ears, nose normal Eyes: Conjunctivae/corneas clear. No icterus. No ptosis. Neck: Supple, no meningeal signs Cardiovascular: S1, S2 + Respiratory: Good air entry, clear to auscultation bilaterally GI: Dressing present, ileostomy present Musculoskeletal: No pedal edema, no cyanosis. Skin: No rash or abscess Hem/Lymphatic: No palpable cervical or supraclavicular nodes. Psych: Drowsy, no agitation Neurological: Drowsy - Constitutional Vitals: Vital Signs Temp Pulse Resp BP Pulse Ox 97.5 F L 84 22 116/64 92 07/03/21 12:08 07/03/21 08:31 07/03/21 08:31 07/03/21 08:31 07/03/21 09:23 Temperature -Last 24 Hours Temperature 97.5 F Temperature 98.3 F Temperature 97.6 F - Labs CBC & Chem 7: 07/03/21 04:56 07/03/21 04:56 Labs: Abnormal lab results 07/03/21 07/03/21 Range/Units 04:56 04:56 WBC 19.0 H (4.5-11.0) K/mm3 RBC 2.24 L (3.65-5.03) M/mm3 Hgb 7.0 L (10.1-14.3) gm/dl Hct 20.4 L (30.3-42.9) % Seg Neutrophils # Man 11.8 H (1.8-7.7) K/mm3 Lymphocytes # (Manual) 6.5 H (1.2-5.4) K/mm3 Sodium 147 H (137-145) mmol/L Potassium 3.1 L (3.6-5.0) mmol/L Chloride 113.5 H (98-107) mmol/L BUN 18 H (7-17) mg/dL Creatinine 0.5 L D (0.6-1.2) mg/dL Glucose 130 H (65-100) mg/dL Calcium 6.9 L (8.4-10.2) mg/dL
--- NOTE | 2021-07-03 18:19 | Progress Note ---
Assessment and Plan - Patient Problems (1) Perforated abdominal viscus Current Visit: Yes Status: Acute Plan to address problem: 1) DC NG 2) Sips of clears Subjective Date of service: 07/03/21 Patient Reports: Positive: no new complaints, feels better, pain is less (Wants ice chips badly.) Objective Vital Signs - 12hr 07/03/21 07/03/21 07/03/21 06:31 07:00 07:27 Temperature 98.3 F Pulse Rate 85 82 Pulse Rate [ From Monitor] Respiratory 19 22 Rate Blood Pressure 125/66 124/69 O2 Sat by Pulse 97 96 Oximetry 07/03/21 07/03/21 07/03/21 07:31 08:00 08:01 Temperature Pulse Rate 83 90 Pulse Rate [ 96 H From Monitor] Respiratory 21 18 23 Rate Blood Pressure 124/69 116/64 O2 Sat by Pulse 91 93 97 Oximetry 07/03/21 07/03/21 07/03/21 08:31 09:23 12:08 Temperature 97.5 F L Pulse Rate 84 Pulse Rate [ From Monitor] Respiratory 22 Rate Blood Pressure 116/64 O2 Sat by Pulse 88 92 Oximetry 07/03/21 16:00 Temperature 99.9 F H Pulse Rate Pulse Rate [ From Monitor] Respiratory Rate Blood Pressure O2 Sat by Pulse Oximetry - Abdomen soft, not tender, not bowel sounds hypoactive, not distended, not rebound, not guarding - Labs 07/03/21 04:56 07/03/21 04:56 Diabetes panel 07/03/21 Range/Units 04:56 Sodium 147 H (137-145) mmol/L Potassium 3.1 L (3.6-5.0) mmol/L Chloride 113.5 H (98-107) mmol/L Carbon Dioxide 25 (22-30) mmol/L BUN 18 H (7-17) mg/dL Creatinine 0.5 L D (0.6-1.2) mg/dL Glucose 130 H (65-100) mg/dL Calcium 6.9 L (8.4-10.2) mg/dL Calcium panel 07/03/21 Range/Units 04:56 Calcium 6.9 L (8.4-10.2) mg/dL Phosphorus 2.80 (2.5-4.5) mg/dL Pituitary panel 07/03/21 Range/Units 04:56 Sodium 147 H (137-145) mmol/L Potassium 3.1 L (3.6-5.0) mmol/L Chloride 113.5 H (98-107) mmol/L Carbon Dioxide 25 (22-30) mmol/L BUN 18 H (7-17) mg/dL Creatinine 0.5 L D (0.6-1.2) mg/dL Glucose 130 H (65-100) mg/dL Calcium 6.9 L (8.4-10.2) mg/dL Adrenal panel 07/03/21 Range/Units 04:56 Sodium 147 H (137-145) mmol/L Potassium 3.1 L (3.6-5.0) mmol/L Chloride 113.5 H (98-107) mmol/L Carbon Dioxide 25 (22-30) mmol/L BUN 18 H (7-17) mg/dL Creatinine 0.5 L D (0.6-1.2) mg/dL Glucose 130 H (65-100) mg/dL Calcium 6.9 L (8.4-10.2) mg/dL - Imaging CT scan - abdomen: report reviewed CT Scan - head: report reviewed
--- NOTE | 2021-07-03 19:08 | Progress Note ---
Assessment and Plan Assessment and plan: 45-year-old female who presented with diffuse abdominal pain. CT scan demonstrated pneumoperitoneum due to perforation. She was taken for emergent surgery. S/p R colectomy with end ileostomy. Patient currently stable. #E. coli sepsis #Perforated abdominal viscus -POD #3: Right colectomy with end ileostomy -General Surgery; appreciate recs -General surgery discontinued NG tube and allowing sips of clear liquids. We will continue to follow. -Abdominal wound cultures positive for 2 different E. coli strains with sensitivity to Rocephin and limited sensitivity to Zosyn. Discontinuing Zosyn (only on for 1 day) and restarting Rocephin 1 g every 24 hours for 4 additional days (total antibiotic course 5 days). Not adding Flagyl due to limited IV availability. -ID consulted; appreciate recs -CT abdomen/pelvis (07/02/2021) without contrast (in the setting of ALEX) negative for possible intra-abdominal abscess #Acute blood loss anemia-stable - hemoglobin drop from 10.2 -->7.4-->7.3 - CT A/P noncontrast (unable to get CTA abdomen/pelvis) negative for hematoma or active bleeding - consulted Vascular Radiology for possible intraabdominal bleed; no need for intervention at this time. - will continue to monitor #Hypotension-resolved -BP with low BP overnight -responsive to fluids -will give 1 bolus of LR -continue D5 infusion, low threshold to start pressors if needed #Acute kidney injury-resolved -creatinine1.1 -Nephrology consulted; appreciate recs -infusing D5W #Lactic acidosis- resolved -lactate 8.0--> 1.8 -likely secondary to perforated bowel -repeat ordered #Hypocalcemia - Ca 6.9 - Repleted; continue to monitor #Hypokalemia-resolved - K 3.4; repleted -will continue to monitor and replete #Urinary tract infection -continue rocephin #Discharge planning -Patient will require PT/OT evaluation once more clinically stable. Disposition Plan: Continue medical management Total Time Spent with Patient (Minutes): 40 minutes History Interval history: No acute events overnight. Hospitalist Physical - Constitutional Vitals: Temp Pulse Resp BP Pulse Ox 99.9 F H 84 22 116/64 92 07/03/21 16:00 07/03/21 08:31 07/03/21 08:31 07/03/21 08:31 07/03/21 09:23 General appearance: Present: no acute distress, well-nourished, obese - EENT Eyes: Present: PERRL, EOM intact ENT: hearing intact, clear oral mucosa, dentition normal, other (NG tube in place) - Neck Neck: Present: supple, normal ROM - Respiratory Respiratory effort: normal (Currently on 3 L nasal cannula) Respiratory: bilateral: CTA - Cardiovascular Rhythm: regular Heart Sounds: Present: S1 & S2 - Extremities Extremities: no ischemia, pulses intact, pulses symmetrical, normal temperature, normal color Peripheral Pulses: within normal limits - Abdominal General gastrointestinal: soft, non-distended, normal bowel sounds, other (Left- sided ostomy; closed vertical incision) - Integumentary Integumentary: Present: clear, warm, dry - Psychiatric Psychiatric: appropriate mood/affect, intact judgment & insight, memory intact, cooperative - Neurologic Neurologic: CNII-XII intact, moves all extremities - Allied Health Allied health notes reviewed: nursing Results - Labs CBC & Chem 7: 07/03/21 04:56 07/03/21 04:56 Labs: Laboratory Last Values WBC 19.0 K/mm3 (4.5-11.0) H 07/03/21 04:56 RBC 2.24 M/mm3 (3.65-5.03) L 07/03/21 04:56 Hgb 7.0 gm/dl (10.1-14.3) L 07/03/21 04:56 Hct 20.4 % (30.3-42.9) L 07/03/21 04:56 MCV 91 fl (79-97) 07/03/21 04:56 MCH 31 pg (28-32) 07/03/21 04:56 MCHC 34 % (30-34) 07/03/21 04:56 RDW 14.5 % (13.2-15.2) 07/03/21 04:56 Plt Count 422 K/mm3 (140-440) 07/03/21 04:56 Lymph % (Auto) 5.1 % (13.4-35.0) L 06/30/21 04:52 [place] % (Auto) 4.1 % (0.0-7.3) 06/30/21 04:52 Eos % (Auto) 0.6 % (0.0-4.3) 06/30/21 04:52 Baso % (Auto) 0.2 % (0.0-1.8) 06/30/21 04:52 Lymph # (Auto) 0.6 K/mm3 (1.2-5.4) L 06/30/21 04:52 [place] # (Auto) 0.5 K/mm3 (0.0-0.8) 06/30/21 04:52 Eos # (Auto) 0.1 K/mm3 (0.0-0.4) 06/30/21 04:52 Baso # (Auto) 0.0 K/mm3 (0.0-0.1) 06/30/21 04:52 Add Manual Diff Complete 07/03/21 04:56 Total Counted 100 07/03/21 04:56 Seg Neutrophils % 90.0 % (40.0-70.0) H 06/30/21 04:52 Seg Neuts % (Manual) 62.0 % (40.0-70.0) 07/03/21 04:56 Band Neutrophils % 1.0 % 07/03/21 04:56 Lymphocytes % (Manual) 34.0 % (13.4-35.0) 07/03/21 04:56 Monocytes % (Manual) 2.0 % (0.0-7.3) 07/03/21 04:56 Metamyelocytes % 1.0 % 06/29/21 12:59 Myelocytes % 1.0 % 07/03/21 04:56 Nucleated RBC % Not Reportable 07/03/21 04:56 Seg Neutrophils # 11.0 K/mm3 (1.8-7.7) H 06/30/21 04:52 Seg Neutrophils # Man 11.8 K/mm3 (1.8-7.7) H 07/03/21 04:56 Band Neutrophils # 0.2 K/mm3 07/03/21 04:56 Lymphocytes # (Manual) 6.5 K/mm3 (1.2-5.4) H 07/03/21 04:56 Abs React Lymphs (Man) 0.0 K/mm3 07/03/21 04:56 Monocytes # (Manual) 0.4 K/mm3 (0.0-0.8) 07/03/21 04:56 Eosinophils # (Manual) 0.0 K/mm3 (0.0-0.4) 07/03/21 04:56 Basophils # (Manual) 0.0 K/mm3 (0.0-0.1) 07/03/21 04:56 Metamyelocytes # 0.0 K/mm3 07/03/21 04:56 Myelocytes # 0.2 K/mm3 07/03/21 04:56 Promyelocytes # 0.0 K/mm3 07/03/21 04:56 Blast Cells # 0.0 K/mm3 07/03/21 04:56 WBC Morphology Not Reportable 07/03/21 04:56 Hypersegmented Neuts Not Reportable 07/03/21 04:56 Hyposegmented Neuts Not Reportable 07/03/21 04:56 Hypogranular Neuts Not Reportable 07/03/21 04:56 Smudge Cells Not Reportable 07/03/21 04:56 Toxic Granulation Not Reportable 07/03/21 04:56 Toxic Vacuolation Not Reportable 07/03/21 04:56 Dohle Bodies Not Reportable 07/03/21 04:56 Pelger-Huet Anomaly Not Reportable 07/03/21 04:56 Ashlyn Rods Not Reportable 07/03/21 04:56 Platelet Estimate Consistent w auto 07/03/21 04:56 Clumped Platelets Not Reportable 07/03/21 04:56 Plt Clumps, EDTA Not Reportable 07/03/21 04:56 Large Platelets Not Reportable 07/03/21 04:56 Giant Platelets Not Reportable 07/03/21 04:56 Platelet Satelliting Not Reportable 07/03/21 04:56 Plt Morphology Comment Not Reportable 07/03/21 04:56 RBC Morphology Not Reportable 07/03/21 04:56 Dimorphic RBCs Not Reportable 07/03/21 04:56 Polychromasia Not Reportable 07/03/21 04:56 Hypochromasia Not Reportable 07/03/21 04:56 Poikilocytosis Not Reportable 07/03/21 04:56 Anisocytosis Not Reportable 07/03/21 04:56 Microcytosis Not Reportable 07/03/21 04:56 Macrocytosis Not Reportable 07/03/21 04:56 Spherocytes Not Reportable 07/03/21 04:56 Pappenheimer Bodies Not Reportable 07/03/21 04:56 Sickle Cells Not Reportable 07/03/21 04:56 Target Cells Not Reportable 07/03/21 04:56 Tear Drop Cells Not Reportable 07/03/21 04:56 Ovalocytes Not Reportable 07/03/21 04:56 Helmet Cells Not Reportable 07/03/21 04:56 [place] Bodies Not Reportable 07/03/21 04:56 [place] Rings Not Reportable 07/03/21 04:56 Lila Cells Not Reportable 07/03/21 04:56 Bite Cells Not Reportable 07/03/21 04:56 Crenated Cell Not Reportable 07/03/21 04:56 Elliptocytes Not Reportable 07/03/21 04:56 Acanthocytes (Spur) Not Reportable 07/03/21 04:56 Rouleaux Not Reportable 07/03/21 04:56 Hemoglobin C Crystals Not Reportable 07/03/21 04:56 Schistocytes Not Reportable 07/03/21 04:56 Malaria parasites Not Reportable 07/03/21 04:56 Geovanni Bodies Not Reportable 07/03/21 04:56 Hem Pathologist Commnt No 07/03/21 04:56 PT 14.7 Sec. (12.2-14.9) 06/29/21 15:15 INR 1.04 (0.87-1.13) 06/29/21 15:15 APTT 29.3 Sec. (24.2-36.6) 06/29/21 15:15 Sodium 147 mmol/L (137-145) H 07/03/21 04:56 Potassium 3.1 mmol/L (3.6-5.0) L 07/03/21 04:56 Chloride 113.5 mmol/L (98-107) H 07/03/21 04:56 Carbon Dioxide 25 mmol/L (22-30) 07/03/21 04:56 Anion Gap 12 mmol/L 07/03/21 04:56 BUN 18 mg/dL (7-17) H 07/03/21 04:56 Creatinine 0.5 mg/dL (0.6-1.2) L D 07/03/21 04:56 Estimated GFR > 60 ml/min 07/03/21 04:56 BUN/Creatinine Ratio 36 % 07/03/21 04:56 Glucose 130 mg/dL (65-100) H 07/03/21 04:56 POC Glucose 103 mg/dL (70-105) 07/03/21 11:28 Lactic Acid 1.20 mmol/L (0.7-2.0) 07/02/21 05:05 Calcium 6.9 mg/dL (8.4-10.2) L 07/03/21 04:56 Phosphorus 2.80 mg/dL (2.5-4.5) 07/03/21 04:56 Magnesium 2.20 mg/dL (1.7-2.3) 07/03/21 04:56 Total Bilirubin 0.30 mg/dL (0.1-1.2) 07/01/21 06:00 AST 262 units/L (5-40) H 07/01/21 06:00 ALT 224 units/L (7-56) H 07/01/21 06:00 Alkaline Phosphatase 94 units/L (35-129) 07/01/21 06:00 Total Protein 4.4 g/dL (6.3-8.2) L 07/01/21 06:00 Albumin 1.3 g/dL (3.9-5) L 07/01/21 06:00 Albumin/Globulin Ratio 0.4 % 07/01/21 06:00 Lipase 9 units/L (13-60) L 06/29/21 12:59 HCG, Qual Negative (Negative) 06/29/21 13:55 Urine Color [place] (Yellow) 06/30/21 04:37 Urine Turbidity Cloudy (Clear) 06/30/21 04:37 Urine pH 5.0 (5.0-7.0) 06/30/21 04:37 Ur Specific [place] 1.017 (1.003-1.030) 06/30/21 04:37 Urine Protein 100 mg/dl mg/dL (Negative) 06/30/21 04:37 Urine Glucose (UA) 50 mg/dL (Negative) 06/30/21 04:37 Urine Ketones Neg mg/dL (Negative) 06/30/21 04:37 Urine Blood Sm (Negative) 06/30/21 04:37 Urine Nitrite Neg (Negative) 06/30/21 04:37 Urine Bilirubin Neg (Negative) 06/30/21 04:37 Urine Urobilinogen 4.0 mg/dL (<2.0) 06/30/21 04:37 Ur Leukocyte Esterase Neg (Negative) 06/30/21 04:37 Urine WBC (Auto) 105.0 /HPF (0.0-6.0) H 06/30/21 04:37 Urine RBC (Auto) 53.0 /HPF (0.0-6.0) 06/30/21 04:37 U Epithel Cells (Auto) 14.0 /HPF (0-13.0) H 06/30/21 04:37 Urine Bacteria (Auto) 1+ /HPF (Negative) 06/30/21 04:37 Urine Creatinine < 4.2 mg/dL (0.1-20.0) 06/30/21 15:36 Urine Sodium 25 mmol/L 06/30/21 15:36 Coronavirus (PCR) Negative (Negative) 06/30/21 Unknown Blood Type O POSITIVE 06/29/21 15:20 Antibody Screen Negative 06/29/21 15:20 Microbiology: Microbiology 06/29/21 12:59 Peripheral/Venous Blood Culture - Preliminary NO GROWTH AFTER 4 DAYS 06/29/21 12:59 Peripheral/Venous Blood Culture - Preliminary NO GROWTH AFTER 4 DAYS [place]/IV: Voiding Method Indwelling Catheter Active Medications - Current Medications Current Medications: Generic Name Dose Route Start Last Admin Trade Name Freq PRN Reason Stop Dose Admin Acetaminophen 650 mg 06/29/21 20:01 Acetaminophen 650 Mg Rect Supp SC Q4H PRN Pain MILD(1-3)/Fever >100.5/PAYNE Hydromorphone HCl 0.5 mg 06/29/21 20:01 07/03/21 16:59 Hydromorphone 1 Mg/1 Ml Inj IV 0.5 mg Q3H PRN Administration Pain , Severe (7-10) Dextrose/Sodium Chloride 1,000 mls @ 100 mls/hr 06/29/21 21:00 07/03/21 02:59 D5ns IV 100 mls/hr DIRECT SOILA Administration Ceftriaxone Sodium 2 gm in 100 mls @ 200 mls/hr 07/02/21 10:00 07/03/21 09:14 Rocephin/Ns 2 Gm/100 Ml IV 07/05/21 10:29 200 mls/hr Q24H SOILA Administration Protocol Morphine Sulfate 2 mg 06/29/21 20:01 07/02/21 23:27 Morphine 2 Mg/1 Ml Inj IV 2 mg Q4H PRN Administration Pain, Moderate (4-6) Ondansetron HCl 4 mg 06/29/21 20:01 Ondansetron 4 Mg/2 Ml Inj IV Q8H PRN Nausea And Vomiting Sodium Chloride 10 ml 06/29/21 22:00 07/02/21 22:27 Sodium Chloride 0.9% 10 Ml Flush Syringe IV 10 ml BID SOILA Administration Sodium Chloride 10 ml 06/29/21 20:01 Sodium Chloride 0.9% 10 Ml Flush Syringe IV PRN PRN LINE FLUSH Sodium Hypochlorite 1 applic 06/30/21 17:00 07/03/21 18:00 Sodium Hypochlorite, Dakin's Full Strength (0.5%) 473 Ml Topical Soln TP 1 applicatio Q12H SOILA Administration Nutrition/Malnutrition Assess - Dietary Evaluation Nutrition/Malnutrition Findings: Nutrition Notes Start: 06/30/21 15:52 Freq: Status: Active Protocol: Document 07/01/21 10:27 JORGE (Rec: 07/01/21 10:56 JORGE [id number]) Nutrition Notes Need for Assessment generated from: expander,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 Current Diet NPO (since D 06/29). Labs/Tests 05/31: K 3.4, CO2 18, BUN 37, Cr 2.1, Glu 110, Ca 5.3, AST 262, ALT 224, Tpro 4.4, Alb 1. 3, Lactic ac 2.1. Pertinent Medications 05/31: D5ns 1000ml @ 100 ml/hr , others nutritionally unremarkable. Height 5 ft 2 in Weight 102.058 kg [place] Body Weight (kg) 50.00 BMI 41.1 Weight Status Obese Subjective/Other Information RD consult for Skin risk assessment, and risk for malnutrition. Percent of energy/protein needs met: Pt is currently on NPO, but planned to d/c NG on 07/02. Burn Absent Trauma Absent GI Symptoms Other Food Allergy No Skin Integrity/Comment Clear, warm, dry. Current % PO Other Minimum of two criteria No #1 Nutrition Diagnosis No nutrition diagnosis at this time Comments: Pt currently on NPO. Is patient on ventilator? No Is Patient Ambulatory and/or Out of Bed No REE-([facility]-confined to bed) 1945.692 Kcal/Kg value to use for calculation 20 Approximate Energy Requirements Using 2040 kcal/Kg Calculation Used for Recommendations Kcal/kg Additional Notes Protein: 1.2-1.5 g/JKg; 60-75 g/day (from IBW+Surgery). Fluids 1 ml/Kcal, or as per MD . Nutrition Intervention Change Diet Order: Continue NPO as per MD. Goal #1 Maintain body weight within +/ -3% of current BWt during LOS. Goal #2 Reach and maintain acceptable chemistry lab values during LOS. Follow-Up By: 07/04/21 Additional Comments Continue monitoring Hydration and BM; when pertinent, food tolerance and %PO intake of meals.
[2021-07-04] MEDS: MORPHINE 2 MG/1 ML INJ IV PRN ×4 (00:56→19:07)
[2021-07-04] MEDS: D5W/0.9% NACL 1,000 ML IV SCH (02:34)
[2021-07-04] MEDS: HYDROmorphone 1 MG/1 ML INJ IV PRN ×4 (03:00→21:15)
[2021-07-04 05:07] LABS: Hematocrit 21.5 % (30.3-42.9); Hemoglobin 6.9 gm/dl (10.1-14.3); Mean Corpuscular HGB Conc 32 % (30-34); Mean Corpuscular Volume 92 fl (79-97); Platelet Count 398 K/mm3 (140-440); Red Blood Count 2.35 M/mm3 (3.65-5.03); Red Cell Distribution Width 14.8 % (13.2-15.2)
[2021-07-04 05:28] LABS: BUN/Creatinine Ratio 28; Blood Urea Nitrogen 14 mg/dL (7-17); Calcium 7.3 mg/dL (8.4-10.2); Hemolysis Index 0
[2021-07-04 05:56] LABS: Band Neutrophils # (Manual) 0.2 K/mm3; Myelocytes # (Manual) 0.7 K/mm3; Total Cells Counted 100
[2021-07-04 05:57] LABS: Platelet Estimate Consistent w Auto
[2021-07-04] MEDS: SODIUM HYPOCHLORITE, DAKIN'S FULL STRENGTH (0.5%) 473 ML TOPICAL SOLN TP SCH ×2 (06:14→17:30)
[2021-07-04] MEDS ORDERED: SODIUM CHLORIDE 0.9% 500 ML 500 ML IV NR (07:18)
[2021-07-04] MEDS: cefTRIAXone/NS 2 GM/100 ML 2 GM/100 ML BAG IV SCH (10:09)
[2021-07-04] MEDS: POTASSIUM CHLORIDE 10 MEQ 10 MEQ/100 ML BAG IV SCH ×4 (10:09→13:19)
--- NOTE | 2021-07-04 12:59 | Progress Note ---
Assessment and Plan Assessment and plan: 45-year-old female who presented with diffuse abdominal pain. CT scan demonstrated pneumoperitoneum due to perforation. She was taken for emergent surgery. S/p R colectomy with end ileostomy. Patient currently stable. #E. coli sepsis #Perforated abdominal viscus -POD #4: Right colectomy with end ileostomy -General Surgery; appreciate recs -General surgery discontinued NG tube and allowing sips of clear liquids. We will continue to follow. -Abdominal wound cultures positive for 2 different E. coli strains with sensitivity to Rocephin and limited sensitivity to Zosyn. Discontinuing Zosyn (only on for 1 day) and restarting Rocephin 1 g every 24 hours for 4 additional days (total antibiotic course 5 days). Not adding Flagyl due to limited IV availability. -ID consulted; appreciate recs -CT abdomen/pelvis (07/02/2021) without contrast (in the setting of ALEX) negative for possible intra-abdominal abscess #Hypernatremia -Sodium 152 -Likely in the setting of patient being n.p.o. since presentation. Starting D5W at 200 cc/hour. Will likely improve as patient is allowed to consume oral intake. -Monitoring with repeat BMPs. #Acute blood loss anemia-stable - hemoglobin drop from 10.2 -->7.4-->7.3-->6.9 -Transfusing 1 unit packed RBC (07/04/2021) - CT A/P noncontrast (unable to get CTA abdomen/pelvis) negative for hematoma or active bleeding - consulted Vascular Radiology for possible intraabdominal bleed; no need for intervention at this time. - will continue to monitor #Hypotension-resolved -BP with low BP overnight -responsive to fluids -will give 1 bolus of LR -continue D5 infusion, low threshold to start pressors if needed #Acute kidney injury-resolved -creatinine1.1 -Nephrology consulted; appreciate recs -infusing D5W #Lactic acidosis- resolved -lactate 8.0--> 1.8 -likely secondary to perforated bowel -repeat ordered #Hypocalcemia - Ca 6.9 - Repleted; continue to monitor #Hypokalemia-resolved - K 3.4; repleted -will continue to monitor and replete #Urinary tract infection-resolved -continue rocephin. Completed 3-day course. #Advanced care planning -Disease education conducted, care plan discussed, diagnoses discussed, prognosis discussed, and patient acknowledges understanding with care plan -Time: +20 minutes #Discharge planning -Patient will require PT/OT evaluation once more clinically stable. Disposition Plan: Continue medical management Total Time Spent with Patient (Minutes): 40 minutes History Interval history: No acute events overnight. Hospitalist Physical - Constitutional Vitals: Temp Pulse Resp BP Pulse Ox 99.5 F 75 28 H 150/76 98 07/04/21 12:09 07/04/21 12:00 07/04/21 12:00 07/04/21 12:00 07/04/21 12:00 General appearance: Present: no acute distress, well-nourished, obese - EENT Eyes: Present: PERRL, EOM intact ENT: hearing intact, clear oral mucosa, dentition normal - Neck Neck: Present: supple, normal ROM - Respiratory Respiratory effort: normal (On 3 L nasal cannula) Respiratory: bilateral: diminished - Cardiovascular Heart rate: 110 Rhythm: regular Heart Sounds: Present: S1 & S2 - Extremities Extremities: no ischemia, pulses intact, pulses symmetrical, No edema, normal temperature, normal color Peripheral Pulses: within normal limits - Abdominal General gastrointestinal: soft, non-tender, non-distended, normal bowel sounds, other (Left lower quadrant ostomy with appropriate output (no blood or mucus present); covered vertical midline incision.) - Integumentary Integumentary: Present: clear, warm, dry - Psychiatric Psychiatric: appropriate mood/affect, intact judgment & insight, memory intact, cooperative - Neurologic Neurologic: CNII-XII intact, moves all extremities - Allied Health Allied health notes reviewed: nursing Results - Labs CBC & Chem 7: 07/04/21 04:37 07/04/21 04:37 Labs: Laboratory Last Values WBC 18.5 K/mm3 (4.5-11.0) H 07/04/21 04:37 RBC 2.35 M/mm3 (3.65-5.03) L 07/04/21 04:37 Hgb 6.9 gm/dl (10.1-14.3) L 07/04/21 04:37 Hct 21.5 % (30.3-42.9) L 07/04/21 04:37 MCV 92 fl (79-97) 07/04/21 04:37 MCH 30 pg (28-32) 07/04/21 04:37 MCHC 32 % (30-34) 07/04/21 04:37 RDW 14.8 % (13.2-15.2) 07/04/21 04:37 Plt Count 398 K/mm3 (140-440) 07/04/21 04:37 Lymph % (Auto) 5.1 % (13.4-35.0) L 06/30/21 04:52 Sharkey % (Auto) 4.1 % (0.0-7.3) 06/30/21 04:52 Eos % (Auto) 0.6 % (0.0-4.3) 06/30/21 04:52 Baso % (Auto) 0.2 % (0.0-1.8) 06/30/21 04:52 Lymph # (Auto) 0.6 K/mm3 (1.2-5.4) L 06/30/21 04:52 Sharkey # (Auto) 0.5 K/mm3 (0.0-0.8) 06/30/21 04:52 Eos # (Auto) 0.1 K/mm3 (0.0-0.4) 06/30/21 04:52 Baso # (Auto) 0.0 K/mm3 (0.0-0.1) 06/30/21 04:52 Add Manual Diff Complete 07/04/21 04:37 Total Counted 100 07/04/21 04:37 Seg Neutrophils % 90.0 % (40.0-70.0) H 06/30/21 04:52 Seg Neuts % (Manual) 79.0 % (40.0-70.0) H 07/04/21 04:37 Band Neutrophils % 1.0 % 07/04/21 04:37 Lymphocytes % (Manual) 5.0 % (13.4-35.0) L 07/04/21 04:37 Monocytes % (Manual) 9.0 % (0.0-7.3) H 07/04/21 04:37 Metamyelocytes % 2.0 % 07/04/21 04:37 Myelocytes % 4.0 % 07/04/21 04:37 Nucleated RBC % Not Reportable 07/04/21 04:37 Seg Neutrophils # 11.0 K/mm3 (1.8-7.7) H 06/30/21 04:52 Seg Neutrophils # Man 14.6 K/mm3 (1.8-7.7) H 07/04/21 04:37 Band Neutrophils # 0.2 K/mm3 07/04/21 04:37 Lymphocytes # (Manual) 0.9 K/mm3 (1.2-5.4) L 07/04/21 04:37 Abs React Lymphs (Man) 0.0 K/mm3 07/04/21 04:37 Monocytes # (Manual) 1.7 K/mm3 (0.0-0.8) H 07/04/21 04:37 Eosinophils # (Manual) 0.0 K/mm3 (0.0-0.4) 07/04/21 04:37 Basophils # (Manual) 0.0 K/mm3 (0.0-0.1) 07/04/21 04:37 Metamyelocytes # 0.4 K/mm3 07/04/21 04:37 Myelocytes # 0.7 K/mm3 07/04/21 04:37 Promyelocytes # 0.0 K/mm3 07/04/21 04:37 Blast Cells # 0.0 K/mm3 07/04/21 04:37 WBC Morphology Not Reportable 07/04/21 04:37 Hypersegmented Neuts Not Reportable 07/04/21 04:37 Hyposegmented Neuts Not Reportable 07/04/21 04:37 Hypogranular Neuts Not Reportable 07/04/21 04:37 Smudge Cells Not Reportable 07/04/21 04:37 Toxic Granulation Not Reportable 07/04/21 04:37 Toxic Vacuolation Not Reportable 07/04/21 04:37 Dohle Bodies Not Reportable 07/04/21 04:37 Pelger-Huet Anomaly Not Reportable 07/04/21 04:37 Ashlyn Rods Not Reportable 07/04/21 04:37 Platelet Estimate Consistent w auto 07/04/21 04:37 Clumped Platelets Not Reportable 07/04/21 04:37 Plt Clumps, EDTA Not Reportable 07/04/21 04:37 Large Platelets Not Reportable 07/04/21 04:37 Giant Platelets Not Reportable 07/04/21 04:37 Platelet Satelliting Not Reportable 07/04/21 04:37 Plt Morphology Comment Not Reportable 07/04/21 04:37 RBC Morphology Not Reportable 07/04/21 04:37 Dimorphic RBCs Not Reportable 07/04/21 04:37 Polychromasia Not Reportable 07/04/21 04:37 Hypochromasia Not Reportable 07/04/21 04:37 Poikilocytosis Not Reportable 07/04/21 04:37 Anisocytosis Not Reportable 07/04/21 04:37 Microcytosis Not Reportable 07/04/21 04:37 Macrocytosis Not Reportable 07/04/21 04:37 Spherocytes Not Reportable 07/04/21 04:37 Pappenheimer Bodies Not Reportable 07/04/21 04:37 Sickle Cells Not Reportable 07/04/21 04:37 Target Cells Not Reportable 07/04/21 04:37 Tear Drop Cells Not Reportable 07/04/21 04:37 Ovalocytes Not Reportable 07/04/21 04:37 Helmet Cells Not Reportable 07/04/21 04:37 [place] Bodies Not Reportable 07/04/21 04:37 [place] Rings Not Reportable 07/04/21 04:37 Lila Cells Not Reportable 07/04/21 04:37 Bite Cells Not Reportable 07/04/21 04:37 Crenated Cell Not Reportable 07/04/21 04:37 Elliptocytes Not Reportable 07/04/21 04:37 Acanthocytes (Spur) Not Reportable 07/04/21 04:37 Rouleaux Not Reportable 07/04/21 04:37 Hemoglobin C Crystals Not Reportable 07/04/21 04:37 Schistocytes Not Reportable 07/04/21 04:37 Malaria parasites Not Reportable 07/04/21 04:37 Geovanni Bodies Not Reportable 07/04/21 04:37 Hem Pathologist Commnt No 07/04/21 04:37 PT 14.7 Sec. (12.2-14.9) 06/29/21 15:15 INR 1.04 (0.87-1.13) 06/29/21 15:15 APTT 29.3 Sec. (24.2-36.6) 06/29/21 15:15 Sodium 152 mmol/L (137-145) H 07/04/21 04:37 Potassium 3.1 mmol/L (3.6-5.0) L 07/04/21 04:37 Chloride 116.2 mmol/L (98-107) H 07/04/21 04:37 Carbon Dioxide 27 mmol/L (22-30) 07/04/21 04:37 Anion Gap 12 mmol/L 07/04/21 04:37 BUN 14 mg/dL (7-17) 07/04/21 04:37 Creatinine 0.5 mg/dL (0.6-1.2) L 07/04/21 04:37 Estimated GFR > 60 ml/min 07/04/21 04:37 BUN/Creatinine Ratio 28 % 07/04/21 04:37 Glucose 134 mg/dL (65-100) H 07/04/21 04:37 POC Glucose 103 mg/dL (70-105) 07/03/21 11:28 Lactic Acid 1.20 mmol/L (0.7-2.0) 07/02/21 05:05 Calcium 7.3 mg/dL (8.4-10.2) L 07/04/21 04:37 Phosphorus 2.80 mg/dL (2.5-4.5) 07/04/21 04:37 Magnesium 2.00 mg/dL (1.7-2.3) 07/04/21 04:37 Total Bilirubin 0.30 mg/dL (0.1-1.2) 07/01/21 06:00 AST 262 units/L (5-40) H 07/01/21 06:00 ALT 224 units/L (7-56) H 07/01/21 06:00 Alkaline Phosphatase 94 units/L (35-129) 07/01/21 06:00 Total Protein 4.4 g/dL (6.3-8.2) L 07/01/21 06:00 Albumin 1.3 g/dL (3.9-5) L 07/01/21 06:00 Albumin/Globulin Ratio 0.4 % 07/01/21 06:00 Lipase 9 units/L (13-60) L 06/29/21 12:59 HCG, Qual Negative (Negative) 06/29/21 13:55 Urine Color Carola (Yellow) 06/30/21 04:37 Urine Turbidity Cloudy (Clear) 06/30/21 04:37 Urine pH 5.0 (5.0-7.0) 06/30/21 04:37 Ur Specific [place] 1.017 (1.003-1.030) 06/30/21 04:37 Urine Protein 100 mg/dl mg/dL (Negative) 06/30/21 04:37 Urine Glucose (UA) 50 mg/dL (Negative) 06/30/21 04:37 Urine Ketones Neg mg/dL (Negative) 06/30/21 04:37 Urine Blood Sm (Negative) 06/30/21 04:37 Urine Nitrite Neg (Negative) 06/30/21 04:37 Urine Bilirubin Neg (Negative) 06/30/21 04:37 Urine Urobilinogen 4.0 mg/dL (<2.0) 06/30/21 04:37 Ur Leukocyte Esterase Neg (Negative) 06/30/21 04:37 Urine WBC (Auto) 105.0 /HPF (0.0-6.0) H 06/30/21 04:37 Urine RBC (Auto) 53.0 /HPF (0.0-6.0) 06/30/21 04:37 U Epithel Cells (Auto) 14.0 /HPF (0-13.0) H 06/30/21 04:37 Urine Bacteria (Auto) 1+ /HPF (Negative) 06/30/21 04:37 Urine Creatinine < 4.2 mg/dL (0.1-20.0) 06/30/21 15:36 Urine Sodium 25 mmol/L 06/30/21 15:36 Coronavirus (PCR) Negative (Negative) 06/30/21 Unknown Blood Type O POSITIVE 06/29/21 15:20 Antibody Screen Negative 06/29/21 15:20 Microbiology: Microbiology 06/29/21 Unknown Abdomen Anaerobic Culture - Preliminary 06/29/21 12:59 Peripheral/Venous Blood Culture - Preliminary NO GROWTH AFTER 4 DAYS 06/29/21 12:59 Peripheral/Venous Blood Culture - Preliminary NO GROWTH AFTER 4 DAYS [place]/IV: Voiding Method Indwelling Catheter Active Medications - Current Medications Current Medications: Generic Name Dose Route Start Last Admin Trade Name Freq PRN Reason Stop Dose Admin Acetaminophen 650 mg 06/29/21 20:01 Acetaminophen 650 Mg Rect Supp [place] Q4H PRN Pain MILD(1-3)/Fever >100.5/PAYNE Hydromorphone HCl 0.5 mg 06/29/21 20:01 07/04/21 10:50 Hydromorphone 1 Mg/1 Ml Inj IV 0.5 mg Q3H PRN Administration Pain , Severe (7-10) Ceftriaxone Sodium 2 gm in 100 mls @ 200 mls/hr 07/02/21 10:00 07/04/21 10:09 Rocephin/Ns 2 Gm/100 Ml IV 07/05/21 10:29 200 mls/hr Q24H SOILA Administration Protocol Sodium Chloride 500 mls @ 0 mls/hr 07/04/21 07:18 Nacl 0.9% 500 Ml IV 07/04/21 20:00 ONCE NR As Directed Dextrose 1,000 mls @ 200 mls/hr 07/04/21 08:00 D5w IV DIRECT SOILA Morphine Sulfate 2 mg 06/29/21 20:01 07/04/21 06:06 Morphine 2 Mg/1 Ml Inj IV 2 mg Q4H PRN Administration Pain, Moderate (4-6) Ondansetron HCl 4 mg 06/29/21 20:01 Ondansetron 4 Mg/2 Ml Inj IV Q8H PRN Nausea And Vomiting Sodium Chloride 10 ml 06/29/21 22:00 07/04/21 10:10 Sodium Chloride 0.9% 10 Ml Flush Syringe IV 10 ml BID SOILA Administration Sodium Chloride 10 ml 06/29/21 20:01 Sodium Chloride 0.9% 10 Ml Flush Syringe IV PRN PRN LINE FLUSH Sodium Hypochlorite 1 applic 06/30/21 17:00 07/04/21 06:14 Sodium Hypochlorite, Dakin's Full Strength (0.5%) 473 Ml Topical Soln TP 1 applicatio Q12H SOILA Administration Nutrition/Malnutrition Assess - Dietary Evaluation Nutrition/Malnutrition Findings: Nutrition Notes Start: 06/30/21 15:52 Freq: Status: Active Protocol: Document 07/01/21 10:27 JORGE (Rec: 07/01/21 10:56 JORGE [id number]) Nutrition Notes Need for Assessment generated from: coke production heater,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 Current Diet NPO (since 06/29). Labs/Tests 05/31: K 3.4, CO2 18, BUN 37, Cr 2.1, Glu 110, Ca 5.3, AST 262, ALT 224, Tpro 4.4, Alb 1. 3, Lactic ac 2.1. Pertinent Medications 05/31: D5ns 1000ml @ 100 ml/hr , others nutritionally unremarkable. Height 5 ft 2 in Weight 102.058 kg [place] Body Weight (kg) 50.00 BMI 41.1 Weight Status Obese Subjective/Other Information RD consult for Skin risk assessment, and risk for malnutrition. Percent of energy/protein needs met: Pt is currently on NPO, but planned to d/c NG on 07/02. Burn Absent Trauma Absent GI Symptoms Other Food Allergy No Skin Integrity/Comment Clear, warm, dry. Current % PO Other Minimum of two criteria No #1 Nutrition Diagnosis No nutrition diagnosis at this time Comments: Pt currently on NPO. Is patient on ventilator? No Is Patient Ambulatory and/or Out of Bed No REE-([facility]-confined to bed) 194.692 Kcal/Kg value to use for calculation 20 Approximate Energy Requirements Using 2041 kcal/Kg Calculation Used for Recommendations Kcal/kg Additional Notes Protein: 1.2-1.5 g/JKg; 60-75 g/day (from IBW+Surgery). Fluids 1 ml/Kcal, or as per MD . Nutrition Intervention Change Diet Order: Continue NPO as per MD. Goal #1 Maintain body weight within +/ -3% of current BWt during LOS. Goal #2 Reach and maintain acceptable chemistry lab values during LOS. Follow-Up By: 07/04/21 Additional Comments Continue monitoring Hydration and BM; when pertinent, food tolerance and %PO intake of meals. - Attestation Statement I have reviewed and agreed w/ Malnutrition eval & tx plan: Yes
[2021-07-04] MEDS ORDERED: SODIUM CHLORIDE 0.9% 1000 ML 1,000 ML ONE (14:41)
--- NOTE | 2021-07-04 14:47 | Progress Note ---
Assessment and Plan Cultures: 06/29/2021 blood culture: No growth 06/29/2021 intra-abdominal culture: In process A/P: 45-year-old female with multiple psychiatric problems, polysubstance abuse admitted with diffuse abdominal pain: #Intra-abdominal sepsis: Pneumoperitoneum: Status post right colectomy with end ileostomy, omentectomy on 06/29/[address] Miranda. #Leukocytosis, reactive thrombocytosis: Secondary to above #ALEX versus CKD: Renally dose antibiotic #Polysubstance abuse Recs: -Continue IV Zosyn for now given persistent leukocytosis without evidence of abscess on CT. Walter Rivas MD [facility] ([facility]) O: [phone] F: [phone] Subjective Date of service: 07/04/21 Interval history: Afebrile, white count stable elevated Objective - Exam Narrative Exam: Physical Exam: Constitutional: Drowsy Head, Ears, Nose: Normocephalic, atraumatic. External ears, nose normal Eyes: Conjunctivae/corneas clear. No icterus. No ptosis. Neck: Supple, no meningeal signs Cardiovascular: S1, S2 + Respiratory: Good air entry, clear to auscultation bilaterally GI: Dressing present, ileostomy present Musculoskeletal: No pedal edema, no cyanosis. Skin: No rash or abscess Hem/Lymphatic: No palpable cervical or supraclavicular nodes. Psych: Drowsy, no agitation Neurological: Drowsy - Constitutional Vitals: Vital Signs Temp Pulse Resp BP Pulse Ox 99.5 F 99 H 31 H 155/90 94 07/04/21 12:09 07/04/21 14:01 07/04/21 14:01 07/04/21 14:01 07/04/21 14:01 Temperature -Last 24 Hours Temperature 99.5 F Temperature 99.5 F Temperature 99.2 F Temperature 98.7 F Temperature 98.3 F Temperature 99.9 F - Labs CBC & Chem 7: 07/04/21 12:54 07/04/21 04:37 Labs: Abnormal lab results 07/04/21 07/04/21 07/04/21 Range/Units 04:37 04:37 12:54 WBC 18.5 H (4.5-11.0) K/mm3 RBC 2.35 L (3.65-5.03) M/mm3 Hgb 6.9 L (10.1-14.3) gm/dl Hct 21.5 L (30.3-42.9) % Seg Neuts % (Manual) 79.0 H (40.0-70.0) % Lymphocytes % (Manual) 5.0 L (13.4-35.0) % Monocytes % (Manual) 9.0 H (0.0-7.3) % Seg Neutrophils # Man 14.6 H (1.8-7.7) K/mm3 Lymphocytes # (Manual) 0.9 L (1.2-5.4) K/mm3 Monocytes # (Manual) 1.7 H (0.0-0.8) K/mm3 Sodium 152 H (137-145) mmol/L Potassium 3.1 L (3.6-5.0) mmol/L Chloride 116.2 H (98-107) mmol/L Creatinine 0.5 L (0.6-1.2) mg/dL Glucose 134 H (65-100) mg/dL Calcium 7.3 L (8.4-10.2) mg/dL Crossmatch See Detail 07/04/21 Range/Units 12:54 WBC (4.5-11.0) K/mm3 RBC (3.65-5.03) M/mm3 Hgb 7.0 L (10.1-14.3) gm/dl Hct 21.0 L (30.3-42.9) % Seg Neuts % (Manual) (40.0-70.0) % Lymphocytes % (Manual) (13.4-35.0) % Monocytes % (Manual) (0.0-7.3) % Seg Neutrophils # Man (1.8-7.7) K/mm3 Lymphocytes # (Manual) (1.2-5.4) K/mm3 Monocytes # (Manual) (0.0-0.8) K/mm3 Sodium (137-145) mmol/L Potassium (3.6-5.0) mmol/L Chloride (98-107) mmol/L Creatinine (0.6-1.2) mg/dL Glucose (65-100) mg/dL Calcium (8.4-10.2) mg/dL Crossmatch
--- NOTE | 2021-07-04 14:53 | Progress Note ---
Assessment and Plan - Patient Problems (1) Perforated abdominal viscus Current Visit: Yes Status: Acute Plan to address problem: 1) DC NG 2) CLD 3) Per ID recommendations 4) Transfer to floor per Hospitalist service 5) CBC and BMP tomorrow Subjective Date of service: 07/04/21 Patient Reports: Positive: no new complaints, feels better, pain is less (Drinking a large amount of water with NG still in (thus the large amount of NG drainage).) Objective Vital Signs - 12hr 07/04/21 07/04/21 07/04/21 03:01 03:31 04:00 Temperature 99.2 F Pulse Rate 104 H 93 H 91 H Pulse Rate [ 90 From Monitor] Respiratory 26 H 27 H 18 Rate Blood Pressure 136/76 138/76 129/69 O2 Sat by Pulse 88 94 93 Oximetry 07/04/21 07/04/21 07/04/21 04:30 05:00 05:30 Temperature Pulse Rate 88 90 86 Pulse Rate [ From Monitor] Respiratory 22 20 21 Rate Blood Pressure 142/74 134/69 140/79 O2 Sat by Pulse 97 94 95 Oximetry 07/04/21 07/04/21 07/04/21 06:00 06:31 07:00 Temperature Pulse Rate 85 109 H 87 Pulse Rate [ From Monitor] Respiratory 18 12 21 Rate Blood Pressure 138/72 138/72 137/80 O2 Sat by Pulse 95 87 93 Oximetry 07/04/21 07/04/21 07/04/21 07:30 07:35 08:00 Temperature 99.5 F Pulse Rate 68 83 Pulse Rate [ 70 From Monitor] Respiratory 20 33 H Rate Blood Pressure 151/69 137/74 O2 Sat by Pulse 90 96 Oximetry 07/04/21 07/04/21 07/04/21 08:24 08:30 09:00 Temperature Pulse Rate 99 H 92 H Pulse Rate [ From Monitor] Respiratory 19 Rate Blood Pressure 129/84 O2 Sat by Pulse 98 96 Oximetry 07/04/21 07/04/21 07/04/21 09:01 09:31 10:01 Temperature Pulse Rate 99 H 90 90 Pulse Rate [ From Monitor] Respiratory 14 33 H 29 H Rate Blood Pressure 57/39 57/39 154/66 O2 Sat by Pulse 95 91 92 Oximetry 07/04/21 07/04/21 07/04/21 10:30 11:00 11:30 Temperature Pulse Rate 106 H 101 H 91 H Pulse Rate [ From Monitor] Respiratory 42 H 42 H 28 H Rate Blood Pressure 160/92 168/84 144/79 O2 Sat by Pulse 87 91 94 Oximetry 07/04/21 07/04/21 07/04/21 12:00 12:09 12:31 Temperature 99.5 F Pulse Rate 73 85 Pulse Rate [ 75 From Monitor] Respiratory 30 H 36 H Rate Blood Pressure 150/76 156/82 O2 Sat by Pulse 92 94 Oximetry 07/04/21 07/04/21 07/04/21 13:00 13:01 13:31 Temperature Pulse Rate 90 96 H 106 H Pulse Rate [ From Monitor] Respiratory 16 17 Rate Blood Pressure 131/77 147/84 O2 Sat by Pulse 94 89 Oximetry 07/04/21 14:01 Temperature Pulse Rate 99 H Pulse Rate [ From Monitor] Respiratory 31 H Rate Blood Pressure 155/90 O2 Sat by Pulse 94 Oximetry - Abdomen soft, bowel sounds hypoactive, not distended (Minimally TTP.), not rebound, not guarding - Labs 07/04/21 12:54 07/04/21 04:37 Diabetes panel 07/04/21 Range/Units 04:37 Sodium 152 H (137-145) mmol/L Potassium 3.1 L (3.6-5.0) mmol/L Chloride 116.2 H (98-107) mmol/L Carbon Dioxide 27 (22-30) mmol/L BUN 14 (7-17) mg/dL Creatinine 0.5 L (0.6-1.2) mg/dL Glucose 134 H (65-100) mg/dL Calcium 7.3 L (8.4-10.2) mg/dL Calcium panel 07/04/21 Range/Units 04:37 Calcium 7.3 L (8.4-10.2) mg/dL Phosphorus 2.80 (2.5-4.5) mg/dL Pituitary panel 07/04/21 Range/Units 04:37 Sodium 152 H (137-145) mmol/L Potassium 3.1 L (3.6-5.0) mmol/L Chloride 116.2 H (98-107) mmol/L Carbon Dioxide 27 (22-30) mmol/L BUN 14 (7-17) mg/dL Creatinine 0.5 L (0.6-1.2) mg/dL Glucose 134 H (65-100) mg/dL Calcium 7.3 L (8.4-10.2) mg/dL Adrenal panel 07/04/21 Range/Units 04:37 Sodium 152 H (137-145) mmol/L Potassium 3.1 L (3.6-5.0) mmol/L Chloride 116.2 H (98-107) mmol/L Carbon Dioxide 27 (22-30) mmol/L BUN 14 (7-17) mg/dL Creatinine 0.5 L (0.6-1.2) mg/dL Glucose 134 H (65-100) mg/dL Calcium 7.3 L (8.4-10.2) mg/dL
[2021-07-04 19:43] LABS: Hematocrit 26.4 % (30.3-42.9); Hemoglobin 8.5 gm/dl (10.1-14.3)
[2021-07-05] MEDS: MORPHINE 2 MG/1 ML INJ IV PRN ×2 (00:29→04:36)
[2021-07-05] MEDS: HYDROmorphone 1 MG/1 ML INJ IV PRN ×4 (02:25→21:40)
[2021-07-05] MEDS: SODIUM HYPOCHLORITE, DAKIN'S FULL STRENGTH (0.5%) 473 ML TOPICAL SOLN TP SCH ×3 (04:33→17:52)
[2021-07-05 05:21] LABS: Hematocrit 23.9 % (30.3-42.9); Hemoglobin 8.6 gm/dl (10.1-14.3); Mean Corpuscular HGB Conc 36 % (30-34); Mean Corpuscular Volume 90 fl (79-97); Platelet Count 353 K/mm3 (140-440); Red Blood Count 2.66 M/mm3 (3.65-5.03); Red Cell Distribution Width 14.4 % (13.2-15.2)
[2021-07-05 05:45] LABS: Blood Urea Nitrogen 10 mg/dL (7-17); Calcium 7.3 mg/dL (8.4-10.2); Hemolysis Index 10
[2021-07-05 05:49] LABS: BUN/Creatinine Ratio 20
[2021-07-05 07:37] LABS: Total Cells Counted 100
[2021-07-05 07:38] LABS: Band Neutrophils # (Manual) 1.1 K/mm3
[2021-07-05 07:39] LABS: RBC Morphology Normal
[2021-07-05] MEDS ORDERED: CALCIUM GLUCONATE 2,000 MG in SODIUM CHLORIDE 0.9% 100 ML IV ONE (07:49)
[2021-07-05] MEDS ORDERED: MAGNESIUM SULFATE 1 GM in SODIUM CHLORIDE 0.9% 50 ML IV ONE (07:49)
[2021-07-05] MEDS: cefTRIAXone/NS 2 GM/100 ML 2 GM/100 ML BAG IV SCH (09:11)
--- NOTE | 2021-07-05 13:21 | Progress Note ---
Assessment and Plan Assessment and plan: 45-year-old female who presented with diffuse abdominal pain. CT scan demonstrated pneumoperitoneum due to perforation. She was taken for emergent surgery. S/p R colectomy with end ileostomy. Patient currently stable. #E. coli sepsis #Perforated abdominal viscus -POD #4: Right colectomy with end ileostomy -General Surgery; appreciate recs -General surgery discontinued NG tube and improved clear liquid diet. We will continue to follow. -Abdominal wound cultures positive for 2 different E. coli strains with sensitivity to Rocephin and limited sensitivity to Zosyn. Discontinued Zosyn (only on for 1 day) and started Rocephin (completed 5-day course on 07/04/2021). Unable to add Flagyl due to limited IV availability. Leukocytosis still continuing; starting meropenem 500 mg every 6 hours 5-day course. Can transition antibiotics once leukocytosis improves and patient can consume regular diet. -ID consulted; appreciate recs -CT abdomen/pelvis (07/02/2021) without contrast (in the setting of ALEX) negative for possible intra-abdominal abscess #Hypernatremia-resolved -Sodium 141 -Likely in the setting of patient being n.p.o. since presentation. Continuing D5W but reducing to 100 cc/hour. Will likely improve as patient is allowed to consume oral intake. -Monitoring with repeat BMPs. #Acute blood loss anemia-stable - hemoglobin drop from 10.2 -->7.4-->7.3-->6.9 -Transfusing 1 unit packed RBC (07/04/2021) - CT A/P noncontrast (unable to get CTA abdomen/pelvis) negative for hematoma or active bleeding - consulted Vascular Radiology for possible intraabdominal bleed; no need for intervention at this time. - will continue to monitor #Hypotension-resolved -BP with low BP overnight -responsive to fluids -will give 1 bolus of LR -continue D5 infusion, low threshold to start pressors if needed #Acute kidney injury-resolved -creatinine1.1 -Nephrology consulted; appreciate recs -infusing D5W #Lactic acidosis- resolved -lactate 8.0--> 1.8 -likely secondary to perforated bowel -repeat ordered #Hypocalcemia - Ca 6.9 - Repleted; continue to monitor #Hypokalemia-resolved - K 3.4; repleted -will continue to monitor and replete #Urinary tract infection-resolved -continue rocephin. Completed 3-day course. #Advanced care planning -Disease education conducted, care plan discussed, diagnoses discussed, prognosis discussed, and patient acknowledges understanding with care plan -Time: +30 minutes #Discharge planning -Patient will require PT/OT evaluation once more clinically stable. Disposition Plan: Continue medical management. Transferring to floor. Total Time Spent with Patient (Minutes): 40-minute History Interval history: No acute overnight events. Hospitalist Physical - Constitutional Vitals: Temp Pulse Resp BP Pulse Ox 99.3 F 89 21 135/74 97 07/05/21 12:13 07/05/21 09:00 07/05/21 09:00 07/05/21 09:00 07/05/21 09:06 General appearance: Present: no acute distress, well-nourished, obese - EENT Eyes: Present: PERRL, EOM intact ENT: hearing intact, clear oral mucosa, dentition normal - Neck Neck: Present: supple, normal ROM - Respiratory Respiratory effort: normal Respiratory: bilateral: CTA (On 3 L nasal cannula) - Cardiovascular Rhythm: regular Heart Sounds: Present: S1 & S2 - Extremities Extremities: no ischemia, pulses intact, pulses symmetrical, No edema, normal temperature, normal color Peripheral Pulses: within normal limits - Abdominal General gastrointestinal: soft, non-distended, normal bowel sounds, other (Bandaged vertical midline incision. LLQ ostomy draining bilious fluid without blood or purulence.) - Integumentary Integumentary: Present: clear, warm, dry - Psychiatric Psychiatric: appropriate mood/affect, intact judgment & insight, memory intact, cooperative - Neurologic Neurologic: CNII-XII intact, moves all extremities - Allied Health Allied health notes reviewed: nursing Results - Labs CBC & Chem 7: 07/05/21 04:45 07/05/21 04:45 Labs: Laboratory Last Values WBC 22.3 K/mm3 (4.5-11.0) H 07/05/21 04:45 RBC 2.66 M/mm3 (3.65-5.03) L 07/05/21 04:45 Hgb 8.6 gm/dl (10.1-14.3) L 07/05/21 04:45 Hct 23.9 % (30.3-42.9) L 07/05/21 04:45 MCV 90 fl (79-97) 07/05/21 04:45 MCH 32 pg (28-32) 07/05/21 04:45 MCHC 36 % (30-34) H 07/05/21 04:45 RDW 14.4 % (13.2-15.2) 07/05/21 04:45 Plt Count 353 K/mm3 (140-440) 07/05/21 04:45 Lymph % (Auto) 5.1 % (13.4-35.0) L 06/30/21 04:52 [place] % (Auto) 4.1 % (0.0-7.3) 06/30/21 04:52 Eos % (Auto) 0.6 % (0.0-4.3) 06/30/21 04:52 Baso % (Auto) 0.2 % (0.0-1.8) 06/30/21 04:52 Lymph # (Auto) 0.6 K/mm3 (1.2-5.4) L 06/30/21 04:52 [place] # (Auto) 0.5 K/mm3 (0.0-0.8) 06/30/21 04:52 Eos # (Auto) 0.1 K/mm3 (0.0-0.4) 06/30/21 04:52 Baso # (Auto) 0.0 K/mm3 (0.0-0.1) 06/30/21 04:52 Add Manual Diff Complete 07/05/21 04:45 Total Counted 100 07/05/21 04:45 Seg Neutrophils % 90.0 % (40.0-70.0) H 06/30/21 04:52 Seg Neuts % (Manual) 86.0 % (40.0-70.0) H 07/05/21 04:45 Band Neutrophils % 5.0 % 07/05/21 04:45 Lymphocytes % (Manual) 4.0 % (13.4-35.0) L 07/05/21 04:45 Monocytes % (Manual) 4.0 % (0.0-7.3) 07/05/21 04:45 Metamyelocytes % 1.0 % 07/05/21 04:45 Myelocytes % 4.0 % 07/04/21 04:37 Nucleated RBC % Not Reportable 07/05/21 04:45 Seg Neutrophils # 11.0 K/mm3 (1.8-7.7) H 06/30/21 04:52 Seg Neutrophils # Man 19.2 K/mm3 (1.8-7.7) H 07/05/21 04:45 Band Neutrophils # 1.1 K/mm3 07/05/21 04:45 Lymphocytes # (Manual) 0.9 K/mm3 (1.2-5.4) L 07/05/21 04:45 Abs React Lymphs (Man) 0.0 K/mm3 07/05/21 04:45 Monocytes # (Manual) 0.9 K/mm3 (0.0-0.8) H 07/05/21 04:45 Eosinophils # (Manual) 0.0 K/mm3 (0.0-0.4) 07/05/21 04:45 Basophils # (Manual) 0.0 K/mm3 (0.0-0.1) 07/05/21 04:45 Metamyelocytes # 0.2 K/mm3 07/05/21 04:45 Myelocytes # 0.0 K/mm3 07/05/21 04:45 Promyelocytes # 0.0 K/mm3 07/05/21 04:45 Blast Cells # 0.0 K/mm3 07/05/21 04:45 WBC Morphology Not Reportable 07/05/21 04:45 WBC Morphology TNR 07/05/21 04:45 Hypersegmented Neuts Not Reportable 07/05/21 04:45 Hyposegmented Neuts Not Reportable 07/05/21 04:45 Hypogranular Neuts Not Reportable 07/05/21 04:45 Smudge Cells Not Reportable 07/05/21 04:45 Toxic Granulation Not Reportable 07/05/21 04:45 Toxic Vacuolation Not Reportable 07/05/21 04:45 Dohle Bodies Not Reportable 07/05/21 04:45 Pelger-Huet Anomaly Not Reportable 07/05/21 04:45 Ashlyn Rods Not Reportable 07/05/21 04:45 Platelet Estimate Not Reportable 07/05/21 04:45 Clumped Platelets Not Reportable 07/05/21 04:45 Plt Clumps, EDTA Not Reportable 07/05/21 04:45 Large Platelets Not Reportable 07/05/21 04:45 Giant Platelets Not Reportable 07/05/21 04:45 Platelet Satelliting Not Reportable 07/05/21 04:45 Plt Morphology Comment Not Reportable 07/05/21 04:45 RBC Morphology Normal 07/05/21 04:45 Dimorphic RBCs Not Reportable 07/05/21 04:45 Polychromasia Not Reportable 07/05/21 04:45 Hypochromasia Not Reportable 07/05/21 04:45 Poikilocytosis Not Reportable 07/05/21 04:45 Anisocytosis Not Reportable 07/05/21 04:45 Microcytosis Not Reportable 07/05/21 04:45 Macrocytosis Not Reportable 07/05/21 04:45 Spherocytes Not Reportable 07/05/21 04:45 Pappenheimer Bodies Not Reportable 07/05/21 04:45 Sickle Cells Not Reportable 07/05/21 04:45 Target Cells Not Reportable 07/05/21 04:45 Tear Drop Cells Not Reportable 07/05/21 04:45 Ovalocytes Not Reportable 07/05/21 04:45 Helmet Cells Not Reportable 07/05/21 04:45 [place] Bodies Not Reportable 07/05/21 04:45 [place] Rings Not Reportable 07/05/21 04:45 [place]ila Cells Not Reportable 07/05/21 04:45 Bite Cells Not Reportable 07/05/21 04:45 Crenated Cell Not Reportable 07/05/21 04:45 Elliptocytes Not Reportable 07/05/21 04:45 Acanthocytes (Spur) Not Reportable 07/05/21 04:45 Rouleaux Not Reportable 07/05/21 04:45 Hemoglobin C Crystals Not Reportable 07/05/21 04:45 Schistocytes Not Reportable 07/05/21 04:45 Malaria parasites Not Reportable 07/05/21 04:45 [place] Bodies Not Reportable 07/05/21 04:45 Hem Pathologist Commnt No 07/05/21 04:45 PT 14.7 Sec. (12.2-14.9) 06/29/21 15:15 INR 1.04 (0.87-1.13) 06/29/21 15:15 APTT 29.3 Sec. (24.2-36.6) 06/29/21 15:15 Sodium 141 mmol/L (137-145) D 07/05/21 04:45 Potassium 3.2 mmol/L (3.6-5.0) L 07/05/21 04:45 Chloride 102.6 mmol/L (98-107) 07/05/21 04:45 Carbon Dioxide 25 mmol/L (22-30) 07/05/21 04:45 Anion Gap 17 mmol/L 07/05/21 04:45 BUN 10 mg/dL (7-17) 07/05/21 04:45 Creatinine 0.5 mg/dL (0.6-1.2) L 07/05/21 04:45 Estimated GFR > 60 ml/min 07/05/21 04:45 BUN/Creatinine Ratio 20 % 07/05/21 04:45 Glucose 73 mg/dL (65-100) 07/05/21 04:45 POC Glucose 103 mg/dL (70-105) 07/03/21 11:28 Lactic Acid 1.20 mmol/L (0.7-2.0) 07/02/21 05:05 Calcium 7.3 mg/dL (8.4-10.2) L 07/05/21 04:45 Phosphorus 3.70 mg/dL (2.5-4.5) D 07/05/21 04:45 Magnesium 1.60 mg/dL (1.7-2.3) L 07/05/21 04:45 Total Bilirubin 0.30 mg/dL (0.1-1.2) 07/01/21 06:00 AST 262 units/L (5-40) H 07/01/21 06:00 ALT 224 units/L (7-56) H 07/01/21 06:00 Alkaline Phosphatase 94 units/L (35-129) 07/01/21 06:00 Total Protein 4.4 g/dL (6.3-8.2) L 07/01/21 06:00 Albumin 1.3 g/dL (3.9-5) L 07/01/21 06:00 Albumin/Globulin Ratio 0.4 % 07/01/21 06:00 Lipase 9 units/L (13-60) L 06/29/21 12:59 HCG, Qual Negative (Negative) 06/29/21 13:55 Urine Color [place] (Yellow) 06/30/21 04:37 Urine Turbidity Cloudy (Clear) 06/30/21 04:37 Urine pH 5.0 (5.0-7.0) 06/30/21 04:37 Ur Specific [place] 1.017 (1.003-1.030) 06/30/21 04:37 Urine Protein 100 mg/dl mg/dL (Negative) 06/30/21 04:37 Urine Glucose (UA) 50 mg/dL (Negative) 06/30/21 04:37 Urine Ketones Neg mg/dL (Negative) 06/30/21 04:37 Urine Blood Sm (Negative) 06/30/21 04:37 Urine Nitrite Neg (Negative) 06/30/21 04:37 Urine Bilirubin Neg (Negative) 06/30/21 04:37 Urine Urobilinogen 4.0 mg/dL (<2.0) 06/30/21 04:37 Ur Leukocyte Esterase Neg (Negative) 06/30/21 04:37 Urine WBC (Auto) 105.0 /HPF (0.0-6.0) H 06/30/21 04:37 Urine RBC (Auto) 53.0 /HPF (0.0-6.0) 06/30/21 04:37 U Epithel Cells (Auto) 14.0 /HPF (0-13.0) H 06/30/21 04:37 Urine Bacteria (Auto) 1+ /HPF (Negative) 06/30/21 04:37 Urine Creatinine < 4.2 mg/dL (0.1-20.0) 06/30/21 15:36 Urine Sodium 25 mmol/L 06/30/21 15:36 Coronavirus (PCR) Negative (Negative) 06/30/21 Unknown Blood Type O POSITIVE 07/04/21 12:54 Antibody Screen Negative 07/04/21 12:54 Crossmatch See Detail 07/04/21 12:54 Microbiology: Microbiology 06/29/21 12:59 Peripheral/Venous Blood Culture - Final NO GROWTH AFTER 5 DAYS 06/29/21 12:59 Peripheral/Venous Blood Culture - Final NO GROWTH AFTER 5 DAYS 06/29/21 Unknown Abdomen Anaerobic Culture - Preliminary [place]/IV: Voiding Method Indwelling Catheter Active Medications - Current Medications Current Medications: Generic Name Dose Route Start Last Admin Trade Name Freq PRN Reason Stop Dose Admin Acetaminophen 650 mg 06/29/21 20:01 Acetaminophen 650 Mg Rect Supp NV Q4H PRN Pain MILD(1-3)/Fever >100.5/PAYNE Hydromorphone HCl 0.5 mg 06/29/21 20:01 07/05/21 10:02 Hydromorphone 1 Mg/1 Ml Inj IV 0.5 mg Q3H PRN Administration Pain , Severe (7-10) Dextrose 1,000 mls @ 200 mls/hr 07/04/21 08:00 D5w IV DIRECT SOILA Meropenem 500 mg in 50 mls @ 50 mls/hr 07/05/21 14:00 Merrem/Ns 500 Mg/50 Ml IV 07/10/21 13:59 Q6H SOILA Morphine Sulfate 2 mg 06/29/21 20:01 07/05/21 04:36 Morphine 2 Mg/1 Ml Inj IV 2 mg Q4H PRN Administration Pain, Moderate (4-6) Ondansetron HCl 4 mg 06/29/21 20:01 Ondansetron 4 Mg/2 Ml Inj IV Q8H PRN Nausea And Vomiting Sodium Chloride 10 ml 06/29/21 22:00 07/05/21 09:12 Sodium Chloride 0.9% 10 Ml Flush Syringe IV 10 ml BID SOILA Administration Sodium Chloride 10 ml 06/29/21 20:01 Sodium Chloride 0.9% 10 Ml Flush Syringe IV PRN PRN LINE FLUSH Sodium Hypochlorite 1 applic 06/30/21 17:00 07/05/21 04:33 Sodium Hypochlorite, Dakin's Full Strength (0.5%) 473 Ml Topical Soln TP 1 applicatio Q12H SOILA Administration Nutrition/Malnutrition Assess - Dietary Evaluation Nutrition/Malnutrition Findings: Nutrition Notes Start: 06/30/21 15:52 Freq: Status: Active Protocol: Document 07/04/21 16:52 GB (Rec: 07/04/21 17:01 GB [id number]) Nutrition Notes Initial or Follow up Reassessment Other Pertinent Diagnosis Abdominal viscus perforation, pneumoperitoneum, surgery. Current Diet no diet order, should be Clear liquid diet Labs/Tests 07/04: Na 152, K 3.1, creatinine 0.5, Glucose 134, Ca 7.3 Pertinent Medications D5 (PRN) Height 5 ft 2 in Weight 102.058 kg [place] Body Weight (kg) 50.00 BMI 41.1 Weight change and time frame No new weights availalbe Weight Status Morbidly Obese Subjective/Other Information MD note 07/04: D/C NG, CLD ( clear liquid diet). Pt drinking water w/NG in place. BM: 07/04 RD: No diet order entered. Begin per MD Clear liquid diet Percent of energy/protein needs met: Clear Liquid diet does not meet 75% or greater of EEN Burn Absent Trauma Absent GI Symptoms Other Food Allergy No Skin Integrity/Comment Medial Abdominal surgical wound Current % PO Other Minimum of two criteria No #1 Nutrition Diagnosis Inadequate energy intake Comments: Pt changing from TF to PO Etiology No diet order. Pt changing from TF to PO As Evidenced by Signs and Symptoms MD recommended start clear liquid diet, no po intakes recorded Is patient on ventilator? No Is Patient Ambulatory and/or Out of Bed No REE-([facility]-confined to bed) 1945.692 Kcal/Kg value to use for calculation 15 Approximate Energy Requirements Using 1531 kcal/Kg Calculation Used for Recommendations Kcal/kg Additional Notes Protein: 0.6-0.8g/kg @ 102k-82g Fluids 1 ml/Kcal, or per MD. Nutrition Intervention Change Diet Order: Begin clear liquid diet advance to GI Soft to regular Nutrition Support: n/a Add Supplement/Snack (indicate name/kcal PRN /protein ) Goal #1 Maintain body weight within +/ -3% of current BWt during LOS. Goal #2 Diet started and tolerated advanced to GI soft to regular by f/u Goal #3 PO intake of meals to be 50% or greater daily for LOS Follow-Up By: 07/08/21 Additional Comments f/u: PO intake, diet advancement
[2021-07-05] MEDS: MEROPENEM/NS 500 MG/50 ML 500 MG/50 ML BAG IV SCH ×2 (15:00→21:45)
--- NOTE | 2021-07-05 15:49 | Progress Note ---
Assessment and Plan - Patient Problems (1) Perforated abdominal viscus Current Visit: Yes Status: Acute Plan to address problem: 1) CT abdomen and pelvis with IV and oral contrast 2) Continue IV antibiotics Subjective Date of service: 07/05/21 Patient Reports: Positive: no new complaints, feels better, pain is less, tolerating liquids well Objective Vital Signs - 12hr 07/05/21 07/05/21 07/05/21 03:54 04:00 04:30 Temperature 99.9 F H Pulse Rate 92 H 93 H Pulse Rate [ 100 H From Monitor] Respiratory 23 23 Rate Blood Pressure 150/81 132/76 O2 Sat by Pulse 99 97 Oximetry 07/05/21 07/05/21 07/05/21 05:00 05:30 06:00 Temperature Pulse Rate 89 87 89 Pulse Rate [ From Monitor] Respiratory 23 22 22 Rate Blood Pressure 140/78 137/74 133/81 O2 Sat by Pulse 93 94 98 Oximetry 07/05/21 07/05/21 07/05/21 06:31 07:00 07:30 Temperature Pulse Rate 92 H 84 77 Pulse Rate [ From Monitor] Respiratory 24 20 21 Rate Blood Pressure 142/70 134/83 139/76 O2 Sat by Pulse 96 100 99 Oximetry 07/05/21 07/05/21 07/05/21 08:00 08:30 09:00 Temperature Pulse Rate 87 90 86 Pulse Rate [ From Monitor] Respiratory 24 22 21 Rate Blood Pressure 144/75 131/74 135/74 O2 Sat by Pulse 99 97 97 Oximetry 07/05/21 07/05/21 09:06 12:13 Temperature 99.3 F Pulse Rate Pulse Rate [ From Monitor] Respiratory Rate Blood Pressure O2 Sat by Pulse 97 Oximetry - Abdomen soft, bowel sounds hypoactive, not distended, not rebound, not guarding (Minimally TTP. Stoma is pink. Large amount of ileostomy output yesterday which was not recorded.) - Labs 07/05/21 04:45 07/05/21 04:45 Diabetes panel 07/05/21 Range/Units 04:45 Sodium 141 D (137-145) mmol/L Potassium 3.2 L (3.6-5.0) mmol/L Chloride 102.6 (98-107) mmol/L Carbon Dioxide 25 (22-30) mmol/L BUN 10 (7-17) mg/dL Creatinine 0.5 L (0.6-1.2) mg/dL Glucose 73 (65-100) mg/dL Calcium 7.3 L (8.4-10.2) mg/dL Calcium panel 07/05/21 Range/Units 04:45 Calcium 7.3 L (8.4-10.2) mg/dL Phosphorus 3.70 D (2.5-4.5) mg/dL Pituitary panel 07/05/21 Range/Units 04:45 Sodium 141 D (137-145) mmol/L Potassium 3.2 L (3.6-5.0) mmol/L Chloride 102.6 (98-107) mmol/L Carbon Dioxide 25 (22-30) mmol/L BUN 10 (7-17) mg/dL Creatinine 0.5 L (0.6-1.2) mg/dL Glucose 73 (65-100) mg/dL Calcium 7.3 L (8.4-10.2) mg/dL Adrenal panel 07/05/21 Range/Units 04:45 Sodium 141 D (137-145) mmol/L Potassium 3.2 L (3.6-5.0) mmol/L Chloride 102.6 (98-107) mmol/L Carbon Dioxide 25 (22-30) mmol/L BUN 10 (7-17) mg/dL Creatinine 0.5 L (0.6-1.2) mg/dL Glucose 73 (65-100) mg/dL Calcium 7.3 L (8.4-10.2) mg/dL
[2021-07-05] MEDS: DEXTROSE 5% IN WATER 1,000 ML IV SCH (22:27)
[2021-07-06] MEDS: HYDROmorphone 1 MG/1 ML INJ IV PRN ×5 (01:03→21:32)
[2021-07-06] MEDS: MEROPENEM/NS 500 MG/50 ML 500 MG/50 ML BAG IV SCH ×4 (01:04→20:32)
[2021-07-06] MEDS: SODIUM HYPOCHLORITE, DAKIN'S FULL STRENGTH (0.5%) 473 ML TOPICAL SOLN TP SCH ×3 (05:30→17:00)
[2021-07-06 06:53] LABS: Hematocrit 27.9 % (30.3-42.9); Hemoglobin 9.1 gm/dl (10.1-14.3); Mean Corpuscular HGB Conc 33 % (30-34); Mean Corpuscular Volume 91 fl (79-97); Platelet Count 360 K/mm3 (140-440); Red Blood Count 3.09 M/mm3 (3.65-5.03); Red Cell Distribution Width 14.5 % (13.2-15.2)
[2021-07-06 07:00] LABS: Blood Urea Nitrogen 9 mg/dL (7-17); Calcium 7.5 mg/dL (8.4-10.2); Hemolysis Index 2
[2021-07-06 07:09] LABS: BUN/Creatinine Ratio 23
[2021-07-06] MEDS ORDERED: CALCIUM GLUCONATE 2,000 MG in SODIUM CHLORIDE 0.9% 100 ML IV ONE (07:53)
[2021-07-06] MEDS ORDERED: MAGNESIUM SULFATE 2 GM/50 ML BAG IV ONE (07:53)
[2021-07-06] MEDS: POTASSIUM CHLORIDE 10 MEQ 10 MEQ/100 ML BAG IV SCH ×3 (09:46→18:59)
[2021-07-06 09:59] LABS: Total Cells Counted 100
[2021-07-06 10:03] LABS: Large Platelets Few; Platelet Estimate Consistent w Auto
--- NOTE | 2021-07-06 11:01 | Cat Scan Report ---
CT ABDOMEN AND PELVIS WITH CONTRAST HISTORY: Assess s/p pneumoperitoneum 100 ML OMNI 300 . COMPARISON: CT abdomen/pelvis from 07/02/2021 TECHNIQUE: CT images of the abdomen and pelvis were obtained following administration of intravenous contrast. All CT scans at this location are performed using CT dose reduction for ALARA by means of automated exposure control. CONTRAST: 100 ml of intravenous contrast administered. FINDINGS: Lungs/bones: There is mild bibasilar atelectasis, small left-sided pleural effusion, and scattered g roundglass airspace disease in the background of moderate emphysema. No acute osseous abnormality roger ntified. Abdomen/pelvis: An open ventral midline wound is again noted with a left lower quadrant ostomy which is intact without bowel obstruction. Postsurgical change again noted with right hemicolectomy and se veral mildly dilated mid to distal small bowel loops with mucosal edema, slight distention, and scatt ered air-fluid levels. No transition point identified. There is again small volume ascites and mesent janneth congestion. A small hepatic cyst again noted. Liver otherwise appears unremarkable. No acute abnormality seen inv olving the gallbladder, spleen, pancreas, adrenals, or kidneys. NG tube has been withdrawn and the st omach is now mildly distended. IMPRESSION: 1. Unchanged postoperative findings in the abdomen with small volume ascites, mesenteric congestion, and likely ongoing small bowel ileus. 2. Lung findings as above could be seen with evolving infectious process. Signer Name: Roly Hercules MD Signed: 07/06/2021 10:56 AM Workstation Name: [id number]
--- NOTE | 2021-07-06 13:11 | Progress Note ---
Assessment and Plan Assessment and plan: 45-year-old female who presented with diffuse abdominal pain. CT scan demonstrated pneumoperitoneum due to perforation. She was taken for emergent surgery. S/p R colectomy with end ileostomy. Patient currently stable. #E. coli sepsis #Perforated abdominal viscus -POD #4: Right colectomy with end ileostomy -General Surgery; appreciate recs -General surgery discontinued NG tube and improved clear liquid diet. We will continue to follow. -Abdominal wound cultures positive for 2 different E. coli strains with sensitivity to Rocephin and limited sensitivity to Zosyn. Discontinued Zosyn (only on for 1 day) and started Rocephin (completed 5-day course on 07/04/2021). Unable to add Flagyl due to limited IV availability. Leukocytosis still continuing; starting meropenem 500 mg every 6 hours 5-day course. Can transition antibiotics once leukocytosis improves and patient can consume regular diet. -ID consulted; appreciate recs -CT abdomen/pelvis (07/02/2021) without contrast (in the setting of ALEX) negative for possible intra-abdominal abscess -Pending CT/abdomen with IV and oral contrast per general surgery. #Hypernatremia-resolved -Sodium 141 -Likely in the setting of patient being n.p.o. since presentation. Continuing D5W but reducing to 100 cc/hour. Will likely improve as patient is allowed to consume oral intake. -Monitoring with repeat BMPs. #Acute blood loss anemia-resolved - hemoglobin drop from 10.2 -->7.4-->7.3-->6.9-->9.1 -Transfusing 1 unit packed RBC (07/04/2021) - CT A/P noncontrast (unable to get CTA abdomen/pelvis) negative for hematoma or active bleeding - consulted Vascular Radiology for possible intraabdominal bleed; no need for intervention at this time. - will continue to monitor #Hypotension-resolved -BP with low BP overnight -responsive to fluids -will give 1 bolus of LR -continue D5 infusion, low threshold to start pressors if needed #Acute kidney injury-resolved -creatinine1.1 -Nephrology consulted; appreciate recs -infusing D5W #Lactic acidosis- resolved -lactate 8.0--> 1.8 -likely secondary to perforated bowel -repeat ordered #Hypocalcemia - Ca 7.5 - Repleted; continue to monitor #Hypokalemia - K 2.8-rebleeding aggressively -will continue to monitor and replete #Urinary tract infection-resolved -continue rocephin. Completed 3-day course. #Advanced care planning -Disease education conducted, care plan discussed, diagnoses discussed, prognosis discussed, and patient acknowledges understanding with care plan -Time: +30 minutes #Discharge planning -Patient will require PT/OT evaluation once more clinically stable. Disposition Plan: Continue medical management Total Time Spent with Patient (Minutes): 40 minutes History Interval history: No acute events overnight. Hospitalist Physical - Constitutional Vitals: Temp Pulse Resp BP Pulse Ox 98.7 F 100 H 20 123/65 94 07/06/21 03:19 07/06/21 05:00 07/06/21 03:19 07/06/21 03:19 07/06/21 03:19 General appearance: Present: no acute distress, well-nourished, obese - EENT Eyes: Present: PERRL, EOM intact ENT: hearing intact, clear oral mucosa, dentition normal - Neck Neck: Present: supple, normal ROM - Respiratory Respiratory effort: normal Details: On 3 L nasal cannula. - Cardiovascular Rhythm: regular Heart Sounds: Present: S1 & S2 - Extremities Extremities: no ischemia, pulses intact, pulses symmetrical, No edema, normal temperature, normal color Peripheral Pulses: within normal limits - Abdominal General gastrointestinal: soft, non-tender, non-distended, normal bowel sounds, other (LLQ ostomy with bilious output; open vertical midline incision covered with Kerlix dressing and tape.) - Integumentary Integumentary: Present: clear, warm, dry - Psychiatric Psychiatric: appropriate mood/affect, intact judgment & insight, memory intact, cooperative - Neurologic Neurologic: CNII-XII intact, moves all extremities - Allied Health Allied health notes reviewed: nursing Results - Labs CBC & Chem 7: 07/06/21 05:31 07/06/21 05:31 Labs: Laboratory Last Values WBC 20.5 K/mm3 (4.5-11.0) H 07/06/21 05:31 RBC 3.09 M/mm3 (3.65-5.03) L 07/06/21 05:31 Hgb 9.1 gm/dl (10.1-14.3) L 07/06/21 05:31 Hct 27.9 % (30.3-42.9) L 07/06/21 05:31 MCV 91 fl (79-97) 07/06/21 05:31 MCH 29 pg (28-32) 07/06/21 05:31 MCHC 33 % (30-34) 07/06/21 05:31 RDW 14.5 % (13.2-15.2) 07/06/21 05:31 Plt Count 360 K/mm3 (140-440) 07/06/21 05:31 Lymph % (Auto) 5.1 % (13.4-35.0) L 06/30/21 04:52 Dougherty % (Auto) 4.1 % (0.0-7.3) 06/30/21 04:52 Eos % (Auto) 0.6 % (0.0-4.3) 06/30/21 04:52 Baso % (Auto) 0.2 % (0.0-1.8) 06/30/21 04:52 Lymph # (Auto) 0.6 K/mm3 (1.2-5.4) L 06/30/21 04:52 Dougherty # (Auto) 0.5 K/mm3 (0.0-0.8) 06/30/21 04:52 Eos # (Auto) 0.1 K/mm3 (0.0-0.4) 06/30/21 04:52 Baso # (Auto) 0.0 K/mm3 (0.0-0.1) 06/30/21 04:52 Add Manual Diff Complete 07/06/21 05:31 Total Counted 100 07/06/21 05:31 Seg Neutrophils % 90.0 % (40.0-70.0) H 06/30/21 04:52 Seg Neuts % (Manual) 90.0 % (40.0-70.0) H 07/06/21 05:31 Band Neutrophils % 5.0 % 07/05/21 04:45 Lymphocytes % (Manual) 4.0 % (13.4-35.0) L 07/06/21 05:31 Monocytes % (Manual) 3.0 % (0.0-7.3) 07/06/21 05:31 Metamyelocytes % 3.0 % 07/06/21 05:31 Myelocytes % 4.0 % 07/04/21 04:37 Nucleated RBC % 1.0 % (0.0-0.9) H 07/06/21 05:31 Seg Neutrophils # 11.0 K/mm3 (1.8-7.7) H 06/30/21 04:52 Seg Neutrophils # Man 18.5 K/mm3 (1.8-7.7) H 07/06/21 05:31 Band Neutrophils # 0.0 K/mm3 07/06/21 05:31 Lymphocytes # (Manual) 0.8 K/mm3 (1.2-5.4) L 07/06/21 05:31 Abs React Lymphs (Man) 0.0 K/mm3 07/06/21 05:31 Monocytes # (Manual) 0.6 K/mm3 (0.0-0.8) 07/06/21 05:31 Eosinophils # (Manual) 0.0 K/mm3 (0.0-0.4) 07/06/21 05:31 Basophils # (Manual) 0.0 K/mm3 (0.0-0.1) 07/06/21 05:31 Metamyelocytes # 0.6 K/mm3 07/06/21 05:31 Myelocytes # 0.0 K/mm3 07/06/21 05:31 Promyelocytes # 0.0 K/mm3 07/06/21 05:31 Blast Cells # 0.0 K/mm3 07/06/21 05:31 WBC Morphology Not Reportable 07/06/21 05:31 Hypersegmented Neuts Not Reportable 07/06/21 05:31 Hyposegmented Neuts Not Reportable 07/06/21 05:31 Hypogranular Neuts Not Reportable 07/06/21 05:31 Smudge Cells Not Reportable 07/06/21 05:31 Toxic Granulation Not Reportable 07/06/21 05:31 Toxic Vacuolation Not Reportable 07/06/21 05:31 Dohle Bodies Not Reportable 07/06/21 05:31 Pelger-Huet Anomaly Not Reportable 07/06/21 05:31 Ashlyn Rods Not Reportable 07/06/21 05:31 Platelet Estimate Consistent w auto 07/06/21 05:31 Clumped Platelets Not Reportable 07/06/21 05:31 Plt Clumps, EDTA Not Reportable 07/06/21 05:31 Large Platelets Few 07/06/21 05:31 Giant Platelets Not Reportable 07/06/21 05:31 Platelet Satelliting Not Reportable 07/06/21 05:31 Plt Morphology Comment Not Reportable 07/06/21 05:31 RBC Morphology Not Reportable 07/06/21 05:31 Dimorphic RBCs Not Reportable 07/06/21 05:31 Polychromasia Few 07/06/21 05:31 Hypochromasia Not Reportable 07/06/21 05:31 Poikilocytosis Not Reportable 07/06/21 05:31 Anisocytosis Not Reportable 07/06/21 05:31 Microcytosis Not Reportable 07/06/21 05:31 Macrocytosis Not Reportable 07/06/21 05:31 Spherocytes Not Reportable 07/06/21 05:31 Pappenheimer Bodies Not Reportable 07/06/21 05:31 Sickle Cells Not Reportable 07/06/21 05:31 Target Cells Not Reportable 07/06/21 05:31 Tear Drop Cells Not Reportable 07/06/21 05:31 Ovalocytes Not Reportable 07/06/21 05:31 Helmet Cells Not Reportable 07/06/21 05:31 Caban-Wagoner Bodies Not Reportable 07/06/21 05:31 [place] Rings Not Reportable 07/06/21 05:31 Roxana Cells Not Reportable 07/06/21 05:31 Bite Cells Not Reportable 07/06/21 05:31 Crenated Cell Not Reportable 07/06/21 05:31 Elliptocytes Not Reportable 07/06/21 05:31 Acanthocytes (Spur) Not Reportable 07/06/21 05:31 Rouleaux Not Reportable 07/06/21 05:31 Hemoglobin C Crystals Not Reportable 07/06/21 05:31 Schistocytes Not Reportable 07/06/21 05:31 Malaria parasites Not Reportable 07/06/21 05:31 Geovanni Bodies Not Reportable 07/06/21 05:31 Hem Pathologist Commnt No 07/06/21 05:31 PT 14.7 Sec. (12.2-14.9) 06/29/21 15:15 INR 1.04 (0.87-1.13) 06/29/21 15:15 APTT 29.3 Sec. (24.2-36.6) 06/29/21 15:15 Sodium 138 mmol/L (137-145) 07/06/21 05:31 Potassium 2.8 mmol/L (3.6-5.0) L* 07/06/21 05:31 Chloride 98.1 mmol/L (98-107) 07/06/21 05:31 Carbon Dioxide 27 mmol/L (22-30) 07/06/21 05:31 Anion Gap 16 mmol/L 07/06/21 05:31 BUN 9 mg/dL (7-17) 07/06/21 05:31 Creatinine 0.4 mg/dL (0.6-1.2) L 07/06/21 05:31 Estimated GFR > 60 ml/min 07/06/21 05:31 BUN/Creatinine Ratio 23 % 07/06/21 05:31 Glucose 86 mg/dL (65-100) 07/06/21 05:31 POC Glucose 103 mg/dL (70-105) 07/03/21 11:28 Lactic Acid 1.20 mmol/L (0.7-2.0) 07/02/21 05:05 Calcium 7.5 mg/dL (8.4-10.2) L 07/06/21 05:31 Phosphorus 4.10 mg/dL (2.5-4.5) 07/06/21 05:31 Magnesium 1.60 mg/dL (1.7-2.3) L 07/06/21 05:31 Total Bilirubin 0.30 mg/dL (0.1-1.2) 07/01/21 06:00 AST 262 units/L (5-40) H 07/01/21 06:00 ALT 224 units/L (7-56) H 07/01/21 06:00 Alkaline Phosphatase 94 units/L (35-129) 07/01/21 06:00 Total Protein 4.4 g/dL (6.3-8.2) L 07/01/21 06:00 Albumin 1.3 g/dL (3.9-5) L 07/01/21 06:00 Albumin/Globulin Ratio 0.4 % 07/01/21 06:00 Lipase 9 units/L (13-60) L 06/29/21 12:59 HCG, Qual Negative (Negative) 06/29/21 13:55 Urine Color Carola (Yellow) 06/30/21 04:37 Urine Turbidity Cloudy (Clear) 06/30/21 04:37 Urine pH 5.0 (5.0-7.0) 06/30/21 04:37 Ur Specific Lovely 1.017 (1.003-1.030) 06/30/21 04:37 Urine Protein 100 mg/dl mg/dL (Negative) 06/30/21 04:37 Urine Glucose (UA) 50 mg/dL (Negative) 06/30/21 04:37 Urine Ketones Neg mg/dL (Negative) 06/30/21 04:37 Urine Blood Sm (Negative) 06/30/21 04:37 Urine Nitrite Neg (Negative) 06/30/21 04:37 Urine Bilirubin Neg (Negative) 06/30/21 04:37 Urine Urobilinogen 4.0 mg/dL (<2.0) 06/30/21 04:37 Ur Leukocyte Esterase Neg (Negative) 06/30/21 04:37 Urine WBC (Auto) 105.0 /HPF (0.0-6.0) H 06/30/21 04:37 Urine RBC (Auto) 53.0 /HPF (0.0-6.0) 06/30/21 04:37 U Epithel Cells (Auto) 14.0 /HPF (0-13.0) H 06/30/21 04:37 Urine Bacteria (Auto) 1+ /HPF (Negative) 06/30/21 04:37 Urine Creatinine < 4.2 mg/dL (0.1-20.0) 06/30/21 15:36 Urine Sodium 25 mmol/L 06/30/21 15:36 Coronavirus (PCR) Negative (Negative) 06/30/21 Unknown Blood Type O POSITIVE 07/04/21 12:54 Antibody Screen Negative 07/04/21 12:54 Crossmatch See Detail 07/04/21 12:54 Shelton/IV: Voiding Method Indwelling Catheter Active Medications - Current Medications Current Medications: Generic Name Dose Route Start Last Admin Trade Name Freq PRN Reason Stop Dose Admin Acetaminophen 650 mg 06/29/21 20:01 Acetaminophen 650 Mg Rect Supp NM Q4H PRN Pain MILD(1-3)/Fever >100.5/PAYNE Hydromorphone HCl 0.5 mg 06/29/21 20:01 07/06/21 09:38 Hydromorphone 1 Mg/1 Ml Inj IV 0.5 mg Q3H PRN Administration Pain , Severe (7-10) Dextrose 1,000 mls @ 100 mls/hr 07/04/21 08:00 07/05/21 22:27 D5w IV 100 mls/hr DIRECT SOILA Administration Meropenem 500 mg in 50 mls @ 50 mls/hr 07/05/21 14:00 07/06/21 07:44 Merrem/Ns 500 Mg/50 Ml IV 07/10/21 13:59 50 mls/hr Q6H SOILA Administration Potassium Chloride 10 meq in 100 mls @ 100 mls/hr 07/06/21 14:00 Kcl 10meq/100ml IV 07/06/21 17:59 Q1H SOILA Morphine Sulfate 2 mg 06/29/21 20:01 07/05/21 04:36 Morphine 2 Mg/1 Ml Inj IV 2 mg Q4H PRN Administration Pain, Moderate (4-6) Ondansetron HCl 4 mg 06/29/21 20:01 Ondansetron 4 Mg/2 Ml Inj IV Q8H PRN Nausea And Vomiting Sodium Chloride 10 ml 06/29/21 22:00 07/06/21 09:49 Sodium Chloride 0.9% 10 Ml Flush Syringe IV 10 ml BID SOILA Administration Sodium Chloride 10 ml 06/29/21 20:01 Sodium Chloride 0.9% 10 Ml Flush Syringe IV PRN PRN LINE FLUSH Sodium Hypochlorite 1 applic 06/30/21 17:00 07/06/21 12:05 Sodium Hypochlorite, Dakin's Full Strength (0.5%) 473 Ml Topical Soln TP 1 applicatio Q12H SOILA Administration Nutrition/Malnutrition Assess - Dietary Evaluation Nutrition/Malnutrition Findings: Nutrition Notes Start: 06/30/21 15:52 Freq: Status: Active Protocol: Document 07/04/21 16:52 GB (Rec: 07/04/21 17:01 GB [id number]) Nutrition Notes Initial or Follow up Reassessment Other Pertinent Diagnosis Abdominal viscus perforation, pneumoperitoneum, surgery. Current Diet no diet order, should be Clear liquid diet Labs/Tests 07/04: Na 152, K 3.1, creatinine 0.5, Glucose 134, Ca 7.3 Pertinent Medications D5 (PRN) Height 5 ft 2 in Weight 102.[address] [place] Body Weight (kg) 50.00 BMI 41.1 Weight change and time frame No new weights availalbe Weight Status Morbidly Obese Subjective/Other Information MD note 07/04: D/C NG, CLD ( clear liquid diet). Pt drinking water w/NG in place. BM: 07/04 RD: No diet order entered. Begin per MD Clear liquid diet Percent of energy/protein needs met: Clear Liquid diet does not meet 75% or greater of EEN Burn Absent Trauma Absent GI Symptoms Other Food Allergy No Skin Integrity/Comment Medial Abdominal surgical wound Current % PO Other Minimum of two criteria No #1 Nutrition Diagnosis Inadequate energy intake Comments: Pt changing from TF to PO Etiology No diet order. Pt changing from TF to PO As Evidenced by Signs and Symptoms MD recommended start clear liquid diet, no po intakes recorded Is patient on ventilator? No Is Patient Ambulatory and/or Out of Bed No REE-([facility]-confined to bed) 1945.692 Kcal/Kg value to use for calculation 15 Approximate Energy Requirements Using 1531 kcal/Kg Calculation Used for Recommendations Kcal/kg Additional Notes Protein: 0.6-0.8g/kg @ 102k-82g Fluids 1 ml/Kcal, or per MD. Nutrition Intervention Change Diet Order: Begin clear liquid diet advance to GI Soft to regular Nutrition Support: n/a Add Supplement/Snack (indicate name/kcal PRN /protein ) Goal #1 Maintain body weight within +/ -3% of current BWt during LOS. Goal #2 Diet started and tolerated advanced to GI soft to regular by f/u Goal #3 PO intake of meals to be 50% or greater daily for LOS Follow-Up By: 07/08/21 Additional Comments f/u: PO intake, diet advancement
--- NOTE | 2021-07-06 13:19 | Progress Note ---
Assessment and Plan - Patient Problems (1) Perforated abdominal viscus Current Visit: Yes Status: Acute Plan to address problem: 1) FLD 2) Ambulate in halls qid Subjective Date of service: 07/06/21 Patient Reports: Positive: no new complaints, feels better, pain is less, tolerating liquids well, flatus, bowel movement Objective Vital Signs - 12hr 07/06/21 07/06/21 03:19 05:00 Temperature 98.7 F Pulse Rate 100 H 100 H Respiratory 20 Rate Blood Pressure 123/65 O2 Sat by Pulse 94 Oximetry - Abdomen PM_[id number]_[id number] 4, PM_46_EXABD1 6, PM_46_EXABD1 8 Hernia: none, other (Large amount of liquid stool in ileostomy bag.) - Labs 07/06/21 05:31 07/06/21 05:31 Diabetes panel 07/06/21 Range/Units 05:31 Sodium 138 (137-145) mmol/L Potassium 2.8 L* (3.6-5.0) mmol/L Chloride 98.1 (98-107) mmol/L Carbon Dioxide 27 (22-30) mmol/L BUN 9 (7-17) mg/dL Creatinine 0.4 L (0.6-1.2) mg/dL Glucose 86 (65-100) mg/dL Calcium 7.5 L (8.4-10.2) mg/dL Calcium panel 07/06/21 Range/Units 05:31 Calcium 7.5 L (8.4-10.2) mg/dL Phosphorus 4.10 (2.5-4.5) mg/dL Pituitary panel 07/06/21 Range/Units 05:31 Sodium 138 (137-145) mmol/L Potassium 2.8 L* (3.6-5.0) mmol/L Chloride 98.1 (98-107) mmol/L Carbon Dioxide 27 (22-30) mmol/L BUN 9 (7-17) mg/dL Creatinine 0.4 L (0.6-1.2) mg/dL Glucose 86 (65-100) mg/dL Calcium 7.5 L (8.4-10.2) mg/dL Adrenal panel 07/06/21 Range/Units 05:31 Sodium 138 (137-145) mmol/L Potassium 2.8 L* (3.6-5.0) mmol/L Chloride 98.1 (98-107) mmol/L Carbon Dioxide 27 (22-30) mmol/L BUN 9 (7-17) mg/dL Creatinine 0.4 L (0.6-1.2) mg/dL Glucose 86 (65-100) mg/dL Calcium 7.5 L (8.4-10.2) mg/dL
[2021-07-06] MEDS ORDERED: POTASSIUM CHLORIDE 10 MEQ 10 MEQ/100 ML BAG IV SCH (14:00)
[2021-07-06] MEDS: DEXTROSE 5% IN WATER 1,000 ML IV SCH (17:00)
[2021-07-06] MEDS: MORPHINE 2 MG/1 ML INJ IV PRN (18:58)
[2021-07-07] MEDS: HYDROmorphone 1 MG/1 ML INJ IV PRN ×7 (01:20→21:18)
[2021-07-07] MEDS: POTASSIUM CHLORIDE 10 MEQ 10 MEQ/100 ML BAG IV SCH ×9 (01:21→18:29)
[2021-07-07] MEDS: MEROPENEM/NS 500 MG/50 ML 500 MG/50 ML BAG IV SCH ×2 (02:55→09:56)
[2021-07-07] MEDS: SODIUM HYPOCHLORITE, DAKIN'S FULL STRENGTH (0.5%) 473 ML TOPICAL SOLN TP SCH ×2 (06:17→17:31)
[2021-07-07 06:45] LABS: Hematocrit 26.1 % (30.3-42.9); Hemoglobin 8.5 gm/dl (10.1-14.3); Mean Corpuscular HGB Conc 33 % (30-34); Mean Corpuscular Volume 91 fl (79-97); Platelet Count 364 K/mm3 (140-440); Red Blood Count 2.88 M/mm3 (3.65-5.03); Red Cell Distribution Width 14.5 % (13.2-15.2)
[2021-07-07 06:59] LABS: Blood Urea Nitrogen 7 mg/dL (7-17); Calcium 7.5 mg/dL (8.4-10.2); Hemolysis Index 7
[2021-07-07 07:04] LABS: BUN/Creatinine Ratio 14
[2021-07-07 07:41] LABS: Total Cells Counted 100
[2021-07-07 07:42] LABS: Anisocytosis 1+; Platelet Estimate Consistent w Auto
[2021-07-07] MEDS: DEXTROSE 5% IN WATER 1,000 ML IV SCH (08:21)
[2021-07-07] MEDS ORDERED: CALCIUM GLUCONATE 2,000 MG in SODIUM CHLORIDE 0.9% 100 ML IV NR (09:00)
--- NOTE | 2021-07-07 12:56 | Progress Note ---
Assessment and Plan Assessment and plan: 45-year-old female who presented with diffuse abdominal pain. CT scan demonstrated pneumoperitoneum due to perforation. She was taken for emergent surgery. S/p R colectomy with end ileostomy. Patient currently stable. #E. coli sepsis #Perforated abdominal viscus -POD #8: Right colectomy with end ileostomy -General Surgery; appreciate recs -Continue with full liquid diet per general surgery. -Abdominal wound cultures positive for 2 different E. coli strains with sensitivity to Rocephin and limited sensitivity to Zosyn. Discontinued Zosyn (only on for 1 day) and started Rocephin (completed 5-day course on 07/04/2021). Unable to add Flagyl due to limited IV availability. Leukocytosis still continuing; continue meropenem 500 mg every 6 hours 5-day course (started 07/06/2021). Can transition antibiotics once leukocytosis improves and patient can consume regular diet. -ID consulted; appreciate recs -CT abdomen/pelvis (07/02/2021) without contrast (in the setting of ALEX) negative for possible intra-abdominal abscess -Pending CT/abdomen with IV and oral contrast per general surgery. #Hypernatremia-resolved -Sodium 132 -Likely in the setting of patient consuming large volumes of liquids. -Monitoring with repeat BMPs. #Acute blood loss anemia-resolved - hemoglobin drop from 10.2 -->7.4-->7.3-->6.9-->9.1 -Transfusing 1 unit packed RBC (07/04/2021) - CT A/P noncontrast (unable to get CTA abdomen/pelvis) negative for hematoma or active bleeding - consulted Vascular Radiology for possible intraabdominal bleed; no need for intervention at this time. - will continue to monitor #Hypotension-resolved -BP with low BP overnight -responsive to fluids -will give 1 bolus of LR -continue D5 infusion, low threshold to start pressors if needed #Acute kidney injury-resolved -creatinine1.1 -Nephrology consulted; appreciate recs -infusing D5W #Lactic acidosis- resolved -lactate 8.0--> 1.8 -likely secondary to perforated bowel -repeat ordered #Hypocalcemia - Ca 7.5 - Repleted; continue to monitor #Hypokalemia - K 3.0-repleting aggressively -will continue to monitor and replete #Urinary tract infection-resolved -continue rocephin. Completed 3-day course. #Advanced care planning -Disease education conducted, care plan discussed, diagnoses discussed, prognosis discussed, and patient acknowledges understanding with care plan -Time: +30 minutes #Discharge planning -Consulted PT/OT for prolonged immobilization -Patient encouraged to ambulate and out of bed orders have been placed. Disposition Plan: Continue medical management Total Time Spent with Patient (Minutes): 40 minutes History Interval history: No acute events overnight. Hospitalist Physical - Constitutional Vitals: Temp Pulse Resp BP Pulse Ox 99.3 F 92 H 20 125/68 93 07/07/21 07:44 07/07/21 07:44 07/07/21 07:44 07/07/21 07:44 07/07/21 08:52 General appearance: Present: no acute distress, well-nourished, obese - EENT Eyes: Present: PERRL, EOM intact ENT: hearing intact, clear oral mucosa, poor dentition, edentulous - Neck Neck: Present: supple, normal ROM - Respiratory Respiratory effort: normal Respiratory: bilateral: diminished (On 3 L nasal cannula) - Cardiovascular Rhythm: regular Heart Sounds: Present: S1 & S2 - Extremities Extremities: no ischemia, pulses intact, pulses symmetrical, No edema, normal temperature, normal color Peripheral Pulses: within normal limits - Abdominal General gastrointestinal: soft, non-tender, non-distended, normal bowel sounds, other (LLQ ostomy with copious bilious output; midline vertical incision covered with Kerlix and tape.) - Integumentary Integumentary: Present: clear, warm, dry - Psychiatric Psychiatric: appropriate mood/affect, intact judgment & insight, memory intact, cooperative - Neurologic Neurologic: CNII-XII intact, moves all extremities - Allied Health Allied health notes reviewed: nursing Results - Labs CBC & Chem 7: 07/07/21 04:43 07/07/21 04:43 Labs: Laboratory Last Values WBC 27.8 K/mm3 (4.5-11.0) H 07/07/21 04:43 RBC 2.88 M/mm3 (3.65-5.03) L 07/07/21 04:43 Hgb 8.5 gm/dl (10.1-14.3) L 07/07/21 04:43 Hct 26.1 % (30.3-42.9) L 07/07/21 04:43 MCV 91 fl (79-97) 07/07/21 04:43 MCH 30 pg (28-32) 07/07/21 04:43 MCHC 33 % (30-34) 07/07/21 04:43 RDW 14.5 % (13.2-15.2) 07/07/21 04:43 Plt Count 364 K/mm3 (140-440) 07/07/21 04:43 Lymph % (Auto) 5.1 % (13.4-35.0) L 06/30/21 04:52 [place] % (Auto) 4.1 % (0.0-7.3) 06/30/21 04:52 Eos % (Auto) 0.6 % (0.0-4.3) 06/30/21 04:52 Baso % (Auto) 0.2 % (0.0-1.8) 06/30/21 04:52 Lymph # (Auto) 0.6 K/mm3 (1.2-5.4) L 06/30/21 04:52 [place] # (Auto) 0.5 K/mm3 (0.0-0.8) 06/30/21 04:52 Eos # (Auto) 0.1 K/mm3 (0.0-0.4) 06/30/21 04:52 Baso # (Auto) 0.0 K/mm3 (0.0-0.1) 06/30/21 04:52 Add Manual Diff Complete 07/07/21 04:43 Total Counted 100 07/07/21 04:43 Seg Neutrophils % 90.0 % (40.0-70.0) H 06/30/21 04:52 Seg Neuts % (Manual) 96.0 % (40.0-70.0) H 07/07/21 04:43 Band Neutrophils % 5.0 % 07/05/21 04:45 Lymphocytes % (Manual) 2.0 % (13.4-35.0) L 07/07/21 04:43 Monocytes % (Manual) 1.0 % (0.0-7.3) 07/07/21 04:43 Basophils % (Manual) 1.0 % (0.0-1.8) 07/07/21 04:43 Metamyelocytes % 3.0 % 07/06/21 05:31 Myelocytes % 4.0 % 07/04/21 04:37 Nucleated RBC % Not Reportable 07/07/21 04:43 Seg Neutrophils # 11.0 K/mm3 (1.8-7.7) H 06/30/21 04:52 Seg Neutrophils # Man 26.7 K/mm3 (1.8-7.7) H 07/07/21 04:43 Band Neutrophils # 0.0 K/mm3 07/07/21 04:43 Lymphocytes # (Manual) 0.6 K/mm3 (1.2-5.4) L 07/07/21 04:43 Abs React Lymphs (Man) 0.0 K/mm3 07/07/21 04:43 Monocytes # (Manual) 0.3 K/mm3 (0.0-0.8) 07/07/21 04:43 Eosinophils # (Manual) 0.0 K/mm3 (0.0-0.4) 07/07/21 04:43 Basophils # (Manual) 0.3 K/mm3 (0.0-0.1) H 07/07/21 04:43 Metamyelocytes # 0.0 K/mm3 07/07/21 04:43 Myelocytes # 0.0 K/mm3 07/07/21 04:43 Promyelocytes # 0.0 K/mm3 07/07/21 04:43 Blast Cells # 0.0 K/mm3 07/07/21 04:43 WBC Morphology Not Reportable 07/07/21 04:43 Hypersegmented Neuts Not Reportable 07/07/21 04:43 Hyposegmented Neuts Not Reportable 07/07/21 04:43 Hypogranular Neuts Not Reportable 07/07/21 04:43 Smudge Cells Not Reportable 07/07/21 04:43 Toxic Granulation Not Reportable 07/07/21 04:43 Toxic Vacuolation Not Reportable 07/07/21 04:43 Dohle Bodies Not Reportable 07/07/21 04:43 Pelger-Huet Anomaly Not Reportable 07/07/21 04:43 Ashlyn Rods Not Reportable 07/07/21 04:43 Platelet Estimate Consistent w auto 07/07/21 04:43 Clumped Platelets Not Reportable 07/07/21 04:43 Plt Clumps, EDTA Not Reportable 07/07/21 04:43 Large Platelets Not Reportable 07/07/21 04:43 Giant Platelets Not Reportable 07/07/21 04:43 Platelet Satelliting Not Reportable 07/07/21 04:43 Plt Morphology Comment Not Reportable 07/07/21 04:43 RBC Morphology Not Reportable 07/07/21 04:43 Dimorphic RBCs Not Reportable 07/07/21 04:43 Polychromasia Not Reportable 07/07/21 04:43 Hypochromasia Not Reportable 07/07/21 04:43 Poikilocytosis Not Reportable 07/07/21 04:43 Anisocytosis 1+ 07/07/21 04:43 Microcytosis Not Reportable 07/07/21 04:43 Macrocytosis Not Reportable 07/07/21 04:43 Spherocytes Not Reportable 07/07/21 04:43 Pappenheimer Bodies Not Reportable 07/07/21 04:43 Sickle Cells Not Reportable 07/07/21 04:43 Target Cells Not Reportable 07/07/21 04:43 Tear Drop Cells Not Reportable 07/07/21 04:43 Ovalocytes Not Reportable 07/07/21 04:43 Helmet Cells Not Reportable 07/07/21 04:43 [place] Bodies Not Reportable 07/07/21 04:43 [place] Rings Not Reportable 07/07/21 04:43 [place] Cells Not Reportable 07/07/21 04:43 Bite Cells Not Reportable 07/07/21 04:43 Crenated Cell Not Reportable 07/07/21 04:43 Elliptocytes Not Reportable 07/07/21 04:43 Acanthocytes (Spur) Not Reportable 07/07/21 04:43 Rouleaux Not Reportable 07/07/21 04:43 Hemoglobin C Crystals Not Reportable 07/07/21 04:43 Schistocytes Not Reportable 07/07/21 04:43 Malaria parasites Not Reportable 07/07/21 04:43 [place] Bodies Not Reportable 07/07/21 04:43 Hem Pathologist Commnt No 07/07/21 04:43 PT 14.7 Sec. (12.2-14.9) 06/29/21 15:15 INR 1.04 (0.87-1.13) 06/29/21 15:15 APTT 29.3 Sec. (24.2-36.6) 06/29/21 15:15 Sodium 132 mmol/L (137-145) L 07/07/21 04:43 Potassium 3.0 mmol/L (3.6-5.0) L 07/07/21 04:43 Chloride 92.5 mmol/L (98-107) L 07/07/21 04:43 Carbon Dioxide 27 mmol/L (22-30) 07/07/21 04:43 Anion Gap 16 mmol/L 07/07/21 04:43 BUN 7 mg/dL (7-17) 07/07/21 04:43 Creatinine 0.5 mg/dL (0.6-1.2) L 07/07/21 04:43 Estimated GFR > 60 ml/min 07/07/21 04:43 BUN/Creatinine Ratio 14 % 07/07/21 04:43 Glucose 111 mg/dL (65-100) H 07/07/21 04:43 POC Glucose 126 mg/dL (70-105) H 07/06/21 16:25 Lactic Acid 1.20 mmol/L (0.7-2.0) 07/02/21 05:05 Calcium 7.5 mg/dL (8.4-10.2) L 07/07/21 04:43 Phosphorus 3.60 mg/dL (2.5-4.5) 07/07/21 04:43 Magnesium 1.70 mg/dL (1.7-2.3) 07/07/21 04:43 Total Bilirubin 0.30 mg/dL (0.1-1.2) 07/01/21 06:00 AST 262 units/L (5-40) H 07/01/21 06:00 ALT 224 units/L (7-56) H 07/01/21 06:00 Alkaline Phosphatase 94 units/L (35-129) 07/01/21 06:00 Total Protein 4.4 g/dL (6.3-8.2) L 07/01/21 06:00 Albumin 1.3 g/dL (3.9-5) L 07/01/21 06:00 Albumin/Globulin Ratio 0.4 % 07/01/21 06:00 Lipase 9 units/L (13-60) L 06/29/21 12:59 HCG, Qual Negative (Negative) 06/29/21 13:55 Urine Color [place] (Yellow) 06/30/21 04:37 Urine Turbidity Cloudy (Clear) 06/30/21 04:37 Urine pH 5.0 (5.0-7.0) 06/30/21 04:37 Ur Specific [place] 1.017 (1.003-1.030) 06/30/21 04:37 Urine Protein 100 mg/dl mg/dL (Negative) 06/30/21 04:37 Urine Glucose (UA) 50 mg/dL (Negative) 06/30/21 04:37 Urine Ketones Neg mg/dL (Negative) 06/30/21 04:37 Urine Blood Sm (Negative) 06/30/21 04:37 Urine Nitrite Neg (Negative) 06/30/21 04:37 Urine Bilirubin Neg (Negative) 06/30/21 04:37 Urine Urobilinogen 4.0 mg/dL (<2.0) 06/30/21 04:37 Ur Leukocyte Esterase Neg (Negative) 06/30/21 04:37 Urine WBC (Auto) 105.0 /HPF (0.0-6.0) H 06/30/21 04:37 Urine RBC (Auto) 53.0 /HPF (0.0-6.0) 06/30/21 04:37 U Epithel Cells (Auto) 14.0 /HPF (0-13.0) H 06/30/21 04:37 Urine Bacteria (Auto) 1+ /HPF (Negative) 06/30/21 04:37 Urine Creatinine < 4.2 mg/dL (0.1-20.0) 06/30/21 15:36 Urine Sodium 25 mmol/L 06/30/21 15:36 Coronavirus (PCR) Negative (Negative) 06/30/21 Unknown Blood Type O POSITIVE 07/04/21 12:54 Antibody Screen Negative 07/04/21 12:54 Crossmatch See Detail 07/04/21 12:54 [place]/IV: Voiding Method External Female Catheter Active Medications - Current Medications Current Medications: Generic Name Dose Route Start Last Admin Trade Name Freq PRN Reason Stop Dose Admin Acetaminophen 650 mg 06/29/21 20:01 Acetaminophen 650 Mg Rect Supp SC Q4H PRN Pain MILD(1-3)/Fever >100.5/PAYNE Hydromorphone HCl 0.5 mg 06/29/21 20:01 07/07/21 11:50 Hydromorphone 1 Mg/1 Ml Inj IV 0.5 mg Q3H PRN Administration Pain , Severe (7-10) Dextrose 1,000 mls @ 100 mls/hr 07/04/21 08:00 07/07/21 08:21 D5w IV 100 mls/hr DIRECT SOILA Administration Meropenem 500 mg in 50 mls @ 50 mls/hr 07/05/21 14:00 07/07/21 09:56 Merrem/Ns 500 Mg/50 Ml IV 07/10/21 13:59 50 mls/hr Q6H SOILA Administration Potassium Chloride 10 meq in 100 mls @ 100 mls/hr 07/07/21 09:00 07/07/21 11:54 Kcl 10meq/100ml IV 07/07/21 12:59 100 mls/hr Q1H SOILA Administration Potassium Chloride 10 meq in 100 mls @ 100 mls/hr 07/07/21 14:00 Kcl 10meq/100ml IV 07/07/21 17:59 Q1H SOILA Morphine Sulfate 2 mg 06/29/21 20:01 07/06/21 18:58 Morphine 2 Mg/1 Ml Inj IV 2 mg Q4H PRN Administration Pain, Moderate (4-6) Ondansetron HCl 4 mg 06/29/21 20:01 Ondansetron 4 Mg/2 Ml Inj IV Q8H PRN Nausea And Vomiting Sodium Chloride 10 ml 06/29/21 22:00 07/07/21 09:53 Sodium Chloride 0.9% 10 Ml Flush Syringe IV 10 ml BID SOILA Administration Sodium Chloride 10 ml 06/29/21 20:01 07/07/21 08:13 Sodium Chloride 0.9% 10 Ml Flush Syringe IV 10 ml PRN PRN Administration LINE FLUSH Sodium Hypochlorite 1 applic 06/30/21 17:00 07/07/21 06:17 Sodium Hypochlorite, Dakin's Full Strength (0.5%) 473 Ml Topical Soln TP 1 applicatio Q12H SOILA Administration Nutrition/Malnutrition Assess - Dietary Evaluation Nutrition/Malnutrition Findings: Nutrition Notes Start: 06/30/21 15:52 Freq: Status: Active Protocol: Document 07/04/21 16:52 GB (Rec: 07/04/21 17:01 GB [id number]) Nutrition Notes Initial or Follow up Reassessment Other Pertinent Diagnosis Abdominal viscus perforation, pneumoperitoneum, surgery. Current Diet no diet order, should be Clear liquid diet Labs/Tests 07/04: Na 152, K 3.1, creatinine 0.5, Glucose 134, Ca 7.3 Pertinent Medications D5 (PRN) Height 5 ft 2 in Weight 102.058 kg [place] Body Weight (kg) 50.00 BMI 41.1 Weight change and time frame No new weights availalbe Weight Status Morbidly Obese Subjective/Other Information MD note 07/04: D/C NG, CLD ( clear liquid diet). Pt drinking water w/NG in place. BM: 07/04 RD: No diet order entered. Begin per MD Clear liquid diet Percent of energy/protein needs met: Clear Liquid diet does not meet 75% or greater of EEN Burn Absent Trauma Absent GI Symptoms Other Food Allergy No Skin Integrity/Comment Medial Abdominal surgical wound Current % PO Other Minimum of two criteria No #1 Nutrition Diagnosis Inadequate energy intake Comments: Pt changing from TF to PO Etiology No diet order. Pt changing from TF to PO As Evidenced by Signs and Symptoms MD recommended start clear liquid diet, no po intakes recorded Is patient on ventilator? No Is Patient Ambulatory and/or Out of Bed No REE-([facility]-confined to bed) 1945.692 Kcal/Kg value to use for calculation 15 Approximate Energy Requirements Using 1531 kcal/Kg Calculation Used for Recommendations Kcal/kg Additional Notes Protein: 0.6-0.8g/kg @ 102k-82g Fluids 1 ml/Kcal, or per MD. Nutrition Intervention Change Diet Order: Begin clear liquid diet advance to GI Soft to regular Nutrition Support: n/a Add Supplement/Snack (indicate name/kcal PRN /protein ) Goal #1 Maintain body weight within +/ -3% of current BWt during LOS. Goal #2 Diet started and tolerated advanced to GI soft to regular by f/u Goal #3 PO intake of meals to be 50% or greater daily for LOS Follow-Up By: 07/08/21 Additional Comments f/u: PO intake, diet advancement
--- NOTE | 2021-07-07 15:08 | Progress Note ---
Assessment and Plan Cultures: 06/29/2021 blood culture: No growth 06/29/2021 intra-abdominal culture: 2x strains E coli A/P: 45-year-old female with multiple psychiatric problems, polysubstance abuse admitted with diffuse abdominal pain: #Intra-abdominal sepsis: Pneumoperitoneum: Status post right colectomy with end ileostomy, omentectomy on 06/29/[address] Miranda. #Leukocytosis, reactive thrombocytosis: Secondary to above #ALEX versus CKD: Renally dose antibiotic. Improived #Polysubstance abuse Recs: -Both isolates sensitive to Zosyn, would de-escalate back to Zosyn. -Check procalcitonin given CT findings of possible developing pneumonia. Walter Rivas MD [facility] O: [phone] F: [phone] Subjective Date of service: 07/07/21 Interval history: Afebrile, white count olga lidia elevated today. She was adjusted to meropenem over the weekend. Personally reviewed: CT abdomen pelvis: Possible evolving process in the lungs Unchanged Postoperative Findings in the Abdomen. Objective - Exam Narrative Exam: Physical Exam: Constitutional: Drowsy Head, Ears, Nose: Normocephalic, atraumatic. External ears, nose normal Eyes: Conjunctivae/corneas clear. No icterus. No ptosis. Neck: Supple, no meningeal signs Cardiovascular: S1, S2 + Respiratory: Good air entry, clear to auscultation bilaterally GI: Dressing present, ileostomy present Musculoskeletal: No pedal edema, no cyanosis. Skin: No rash or abscess Hem/Lymphatic: No palpable cervical or supraclavicular nodes. Psych: Drowsy, no agitation Neurological: Drowsy - Constitutional Vitals: Vital Signs Temp Pulse Resp BP Pulse Ox 99.3 F 92 H 20 125/68 93 07/07/21 07:44 07/07/21 07:44 07/07/21 07:44 07/07/21 07:44 07/07/21 08:52 Temperature -Last 24 Hours Temperature 99.3 F Temperature 99.2 F Temperature 98.9 F Temperature 99.6 F Temperature 98.2 F - Labs CBC & Chem 7: 07/07/21 04:43 07/07/21 04:43 Labs: Abnormal lab results 07/06/21 07/07/21 07/07/21 Range/Units 16:25 04:43 04:43 WBC 27.8 H (4.5-11.0) K/mm3 RBC 2.88 L (3.65-5.03) M/mm3 Hgb 8.5 L (10.1-14.3) gm/dl Hct 26.1 L (30.3-42.9) % Seg Neuts % (Manual) 96.0 H (40.0-70.0) % Lymphocytes % (Manual) 2.0 L (13.4-35.0) % Seg Neutrophils # Man 26.7 H (1.8-7.7) K/mm3 Lymphocytes # (Manual) 0.6 L (1.2-5.4) K/mm3 Basophils # (Manual) 0.3 H (0.0-0.1) K/mm3 Sodium 132 L (137-145) mmol/L Potassium 3.0 L (3.6-5.0) mmol/L Chloride 92.5 L (98-107) mmol/L Creatinine 0.5 L (0.6-1.2) mg/dL Glucose 111 H (65-100) mg/dL POC Glucose 126 H (70-105) mg/dL Calcium 7.5 L (8.4-10.2) mg/dL
--- NOTE | 2021-07-07 16:34 | Progress Note ---
Assessment and Plan - Patient Problems (1) Perforated abdominal viscus Current Visit: Yes Status: Acute Plan to address problem: 1) CXR 2) UA 3) CBC and BMP in the am Subjective Date of service: 07/07/21 Patient Reports: Positive: no new complaints, feels better Objective Vital Signs - 12hr 07/07/21 07/07/21 07/07/21 05:00 07:44 08:52 Temperature 99.3 F Pulse Rate 95 H 92 H Pulse Rate [ 99 H From Monitor] Respiratory 18 20 Rate Blood Pressure 125/68 O2 Sat by Pulse 98 91 93 Oximetry 07/07/21 10:00 Temperature Pulse Rate Pulse Rate [ From Monitor] Respiratory 20 Rate Blood Pressure O2 Sat by Pulse 98 Oximetry - Abdomen soft, not tender, bowel sounds hypoactive, not distended, not rebound, not guarding, other (Large amount of liquid stool in ileostomy bag.) - Labs 07/07/21 04:43 07/07/21 04:43 Diabetes panel 07/07/21 Range/Units 04:43 Sodium 132 L (137-145) mmol/L Potassium 3.0 L (3.6-5.0) mmol/L Chloride 92.5 L (98-107) mmol/L Carbon Dioxide 27 (22-30) mmol/L BUN 7 (7-17) mg/dL Creatinine 0.5 L (0.6-1.2) mg/dL Glucose 111 H (65-100) mg/dL Calcium 7.5 L (8.4-10.2) mg/dL Calcium panel 07/07/21 Range/Units 04:43 Calcium 7.5 L (8.4-10.2) mg/dL Phosphorus 3.60 (2.5-4.5) mg/dL Pituitary panel 07/07/21 Range/Units 04:43 Sodium 132 L (137-145) mmol/L Potassium 3.0 L (3.6-5.0) mmol/L Chloride 92.5 L (98-107) mmol/L Carbon Dioxide 27 (22-30) mmol/L BUN 7 (7-17) mg/dL Creatinine 0.5 L (0.6-1.2) mg/dL Glucose 111 H (65-100) mg/dL Calcium 7.5 L (8.4-10.2) mg/dL Adrenal panel 07/07/21 Range/Units 04:43 Sodium 132 L (137-145) mmol/L Potassium 3.0 L (3.6-5.0) mmol/L Chloride 92.5 L (98-107) mmol/L Carbon Dioxide 27 (22-30) mmol/L BUN 7 (7-17) mg/dL Creatinine 0.5 L (0.6-1.2) mg/dL Glucose 111 H (65-100) mg/dL Calcium 7.5 L (8.4-10.2) mg/dL
[2021-07-07] MEDS: PIPERACIL/TAZOBACTA 4.5/NS 100 4.5 GM/100 ML VIAL IV SCH ×2 (19:28→23:59)
--- NOTE | 2021-07-07 20:38 | XRay Report ---
CHEST 1 VIEW 07/07/2021 7:48 PM INDICATION / CLINICAL INFORMATION: leukocytosis. COMPARISON: None available. FINDINGS: SUPPORT DEVICES: None. HEART / MEDIASTINUM: No significant abnormality. LUNGS / PLEURA: Lung volumes are reduced with nonspecific bilateral interstitial opacities. No dense area of consolidation. No significant pleural effusion. No pneumothorax. ADDITIONAL FINDINGS: No significant additional findings. IMPRESSION: Nonspecific bilateral pulmonary opacities could represent atelectasis. No other acute findings. Signer Name: Kee Scott MD Signed: 07/07/2021 8:34 PM Workstation Name: [id number]
[2021-07-08] MEDS: DEXTROSE 5% IN WATER 1,000 ML IV SCH
[2021-07-08] MEDS: HYDROmorphone 1 MG/1 ML INJ IV PRN ×5 (01:49→20:18)
[2021-07-08] MEDS: SODIUM HYPOCHLORITE, DAKIN'S FULL STRENGTH (0.5%) 473 ML TOPICAL SOLN TP SCH ×2 (06:31→16:17)
[2021-07-08 07:38] LABS: Hematocrit 25.4 % (30.3-42.9); Hemoglobin 8.1 gm/dl (10.1-14.3); Mean Corpuscular HGB Conc 32 % (30-34); Mean Corpuscular Volume 91 fl (79-97); Platelet Count 360 K/mm3 (140-440); Red Blood Count 2.79 M/mm3 (3.65-5.03); Red Cell Distribution Width 14.7 % (13.2-15.2)
[2021-07-08 07:54] LABS: Blood Urea Nitrogen 5 mg/dL (7-17); Calcium 7.5 mg/dL (8.4-10.2); Hemolysis Index 27
[2021-07-08 07:56] LABS: BUN/Creatinine Ratio 13
--- NOTE | 2021-07-08 09:42 | Progress Note ---
Assessment and Plan - Patient Problems (1) Perforated abdominal viscus Current Visit: Yes Status: Acute Plan to address problem: 1) Check UA 2) Regular diet 3) PT consult Subjective Date of service: 07/08/21 Patient Reports: Positive: no new complaints Objective Vital Signs - 12hr 07/07/21 07/07/21 07/08/21 22:00 23:16 01:00 Temperature 98.9 F Pulse Rate 101 H 103 H Pulse Rate [ 103 H From Monitor] Respiratory 18 18 Rate Blood Pressure 115/68 O2 Sat by Pulse 98 92 Oximetry 07/08/21 07/08/21 07/08/21 03:30 05:00 07:55 Temperature 98.7 F 98.8 F Pulse Rate 92 H 75 94 H Pulse Rate [ From Monitor] Respiratory 18 32 H Rate Blood Pressure 110/70 121/72 O2 Sat by Pulse 92 96 Oximetry - Abdomen other (Large amount of liquid stool in bag. Ileostomy is pink.) Hernia: none - Labs 07/08/21 06:45 07/08/21 06:45 Diabetes panel 07/08/21 Range/Units 06:45 Sodium 132 L (137-145) mmol/L Potassium 3.9 D (3.6-5.0) mmol/L Chloride 95.6 L (98-107) mmol/L Carbon Dioxide 25 (22-30) mmol/L BUN 5 L (7-17) mg/dL Creatinine 0.4 L (0.6-1.2) mg/dL Glucose 101 H (65-100) mg/dL Calcium 7.5 L (8.4-10.2) mg/dL Calcium panel 07/08/21 Range/Units 06:45 Calcium 7.5 L (8.4-10.2) mg/dL Phosphorus 3.70 (2.5-4.5) mg/dL Pituitary panel 07/08/21 Range/Units 06:45 Sodium 132 L (137-145) mmol/L Potassium 3.9 D (3.6-5.0) mmol/L Chloride 95.6 L (98-107) mmol/L Carbon Dioxide 25 (22-30) mmol/L BUN 5 L (7-17) mg/dL Creatinine 0.4 L (0.6-1.2) mg/dL Glucose 101 H (65-100) mg/dL Calcium 7.5 L (8.4-10.2) mg/dL Adrenal panel 07/08/21 Range/Units 06:45 Sodium 132 L (137-145) mmol/L Potassium 3.9 D (3.6-5.0) mmol/L Chloride 95.6 L (98-107) mmol/L Carbon Dioxide 25 (22-30) mmol/L BUN 5 L (7-17) mg/dL Creatinine 0.4 L (0.6-1.2) mg/dL Glucose 101 H (65-100) mg/dL Calcium 7.5 L (8.4-10.2) mg/dL - Imaging Chest x-ray: report reviewed Additional Studies: UA was not done.
[2021-07-08] MEDS: PIPERACIL/TAZOBACTA 4.5/NS 100 4.5 GM/100 ML VIAL IV SCH ×2 (11:38→16:17)
--- NOTE | 2021-07-08 13:14 | Progress Note ---
Assessment and Plan Cultures: 06/29/2021 blood culture: No growth 06/29/2021 intra-abdominal culture: 2x strains E coli A/P: 45-year-old female with multiple psychiatric problems, polysubstance abuse admitted with diffuse abdominal pain: #Intra-abdominal sepsis: Pneumoperitoneum: Status post right colectomy with end ileostomy, omentectomy on 06/29/[address] Miranda. #Leukocytosis, reactive thrombocytosis: Secondary to above #ALEX versus CKD: Renally dose antibiotic. Improived #Polysubstance abuse Recs: -Continue Zosyn. -Procal only mildly elevated G. Leslie Rivas MD [facility] ([facility]) O: [phone] F: [phone] Subjective Date of service: 07/08/21 Interval history: afebrile, white count slightly improved today. Objective - Exam Narrative Exam: Physical Exam: Constitutional: Drowsy Head, Ears, Nose: Normocephalic, atraumatic. External ears, nose normal Eyes: Conjunctivae/corneas clear. No icterus. No ptosis. Neck: Supple, no meningeal signs Cardiovascular: S1, S2 + Respiratory: Good air entry, clear to auscultation bilaterally GI: Dressing present, ileostomy present Musculoskeletal: No pedal edema, no cyanosis. Skin: No rash or abscess Hem/Lymphatic: No palpable cervical or supraclavicular nodes. Psych: Drowsy, no agitation Neurological: Drowsy - Constitutional Vitals: Vital Signs Temp Pulse Resp BP Pulse Ox 97.7 F 94 H 38 H 130/74 96 07/08/21 11:33 07/08/21 07:55 07/08/21 11:39 07/08/21 11:33 07/08/21 07:55 Temperature -Last 24 Hours Temperature 97.7 F Temperature 98.8 F Temperature 98.7 F Temperature 98.9 F Temperature 98.7 F Temperature 98.7 F - Labs CBC & Chem 7: 07/08/21 06:45 07/08/21 06:45 Labs: Abnormal lab results 07/08/21 07/08/21 Range/Units 06:45 06:45 WBC 25.1 H (4.5-11.0) K/mm3 RBC 2.79 L (3.65-5.03) M/mm3 Hgb 8.1 L (10.1-14.3) gm/dl Hct 25.4 L (30.3-42.9) % Sodium 132 L (137-145) mmol/L Chloride 95.6 L (98-107) mmol/L BUN 5 L (7-17) mg/dL Creatinine 0.4 L (0.6-1.2) mg/dL Glucose 101 H (65-100) mg/dL Calcium 7.5 L (8.4-10.2) mg/dL
--- NOTE | 2021-07-08 15:31 | Progress Note ---
Assessment and Plan Assessment and plan: 45-year-old female who presented with diffuse abdominal pain. CT scan demonstrated pneumoperitoneum due to perforation. She was taken for emergent surgery. S/p R colectomy with end ileostomy. Patient currently stable. #E.coli sepsis-improving #Perforated abdominal viscus -POD#9 s/p R colectomy with end ileostomy -Afebrile, white blood cell count 25.1 -Abdominal wound cultures positive for 2 E. coli strains -s/p 5-day course of Rocephin -procalcitonin 0.85 -continue Zosyn -General Surgery & ID following -diet upgraded to regular diet #Hyponatremia -Sodium 132 today -D5 infusion discontinued; likely secondary to IV fluids -will continue to monitor #Acute blood loss anemia-resolved -Hemoglobin 8.1 -will transfuse for hemoglobin less than 7 #Hypotension -Resolved -D5 infusion discontinued #Acute kidney injury -Resolved, likely secondary to vasomotor nephropathy #Elevated lactate level -Resolved -likely secondary to perforated bowel #Hypokalemia -Resolved -will continue to monitor and replete #Urinary tract infection -s/p rocephin #Discharge planning -PT/OT consults ordered, recs appreciated -Patient noted to be out of bed daily, has low motivation to get out of bed and constantly seeking pain medications Disposition Plan: Pending PT evaluation Total Time Spent with Patient (Minutes): 20 minutes History Interval history: No acute events overnight. Patient reports being in excruciating pain and requesting pain medications. Denies chest pain or shortness of breath. Hospitalist Physical - Physical exam Narrative exam: GENERAL: Well-developed well-nourished. Lying in bed, no acute distress. CHEST/LUNGS: CTAB on room air HEART/CARDIOVASCULAR: Regular rate and rhythm. No murmur, rubs or gallops appreciated. ABDOMEN: Midline abdominal surgical incision dressed. Ostomy draining dark green fluid. +BS. NEURO: No focal motor deficit. Follows all commands. MUSCULOSKELETAL: No joint effusion EXTREMITIES: No cyanosis, clubbing or edema. PSYCH: Cooperative. - Constitutional Vitals: Temp Pulse Resp BP Pulse Ox 97.7 F 94 H 38 H 130/74 96 07/08/21 11:33 07/08/21 07:55 07/08/21 11:39 07/08/21 11:33 07/08/21 07:55 General appearance: Present: no acute distress, well-nourished, obese Results - Labs CBC & Chem 7: 07/08/21 06:45 07/08/21 06:45 Labs: Laboratory Last Values WBC 25.1 K/mm3 (4.5-11.0) H 07/08/21 06:45 RBC 2.79 M/mm3 (3.65-5.03) L 07/08/21 06:45 Hgb 8.1 gm/dl (10.1-14.3) L 07/08/21 06:45 Hct 25.4 % (30.3-42.9) L 07/08/21 06:45 MCV 91 fl (79-97) 07/08/21 06:45 MCH 29 pg (28-32) 07/08/21 06:45 MCHC 32 % (30-34) 07/08/21 06:45 RDW 14.7 % (13.2-15.2) 07/08/21 06:45 Plt Count 360 K/mm3 (140-440) 07/08/21 06:45 Lymph % (Auto) 5.1 % (13.4-35.0) L 06/30/21 04:52 Barry % (Auto) 4.1 % (0.0-7.3) 06/30/21 04:52 Eos % (Auto) 0.6 % (0.0-4.3) 06/30/21 04:52 Baso % (Auto) 0.2 % (0.0-1.8) 06/30/21 04:52 Lymph # (Auto) 0.6 K/mm3 (1.2-5.4) L 06/30/21 04:52 Barry # (Auto) 0.5 K/mm3 (0.0-0.8) 06/30/21 04:52 Eos # (Auto) 0.1 K/mm3 (0.0-0.4) 06/30/21 04:52 Baso # (Auto) 0.0 K/mm3 (0.0-0.1) 06/30/21 04:52 Add Manual Diff Complete 07/07/21 04:43 Total Counted 100 07/07/21 04:43 Seg Neutrophils % 90.0 % (40.0-70.0) H 06/30/21 04:52 Seg Neuts % (Manual) 96.0 % (40.0-70.0) H 07/07/21 04:43 Band Neutrophils % 5.0 % 07/05/21 04:45 Lymphocytes % (Manual) 2.0 % (13.4-35.0) L 07/07/21 04:43 Monocytes % (Manual) 1.0 % (0.0-7.3) 07/07/21 04:43 Basophils % (Manual) 1.0 % (0.0-1.8) 07/07/21 04:43 Metamyelocytes % 3.0 % 07/06/21 05:31 Myelocytes % 4.0 % 07/04/21 04:37 Nucleated RBC % Not Reportable 07/07/21 04:43 Seg Neutrophils # 11.0 K/mm3 (1.8-7.7) H 06/30/21 04:52 Seg Neutrophils # Man 26.7 K/mm3 (1.8-7.7) H 07/07/21 04:43 Band Neutrophils # 0.0 K/mm3 07/07/21 04:43 Lymphocytes # (Manual) 0.6 K/mm3 (1.2-5.4) L 07/07/21 04:43 Abs React Lymphs (Man) 0.0 K/mm3 07/07/21 04:43 Monocytes # (Manual) 0.3 K/mm3 (0.0-0.8) 07/07/21 04:43 Eosinophils # (Manual) 0.0 K/mm3 (0.0-0.4) 07/07/21 04:43 Basophils # (Manual) 0.3 K/mm3 (0.0-0.1) H 07/07/21 04:43 Metamyelocytes # 0.0 K/mm3 07/07/21 04:43 Myelocytes # 0.0 K/mm3 07/07/21 04:43 Promyelocytes # 0.0 K/mm3 07/07/21 04:43 Blast Cells # 0.0 K/mm3 07/07/21 04:43 WBC Morphology Not Reportable 07/07/21 04:43 Hypersegmented Neuts Not Reportable 07/07/21 04:43 Hyposegmented Neuts Not Reportable 07/07/21 04:43 Hypogranular Neuts Not Reportable 07/07/21 04:43 Smudge Cells Not Reportable 07/07/21 04:43 Toxic Granulation Not Reportable 07/07/21 04:43 Toxic Vacuolation Not Reportable 07/07/21 04:43 Dohle Bodies Not Reportable 07/07/21 04:43 Pelger-Huet Anomaly Not Reportable 07/07/21 04:43 Ashlyn Rods Not Reportable 07/07/21 04:43 Platelet Estimate Consistent w auto 07/07/21 04:43 Clumped Platelets Not Reportable 07/07/21 04:43 Plt Clumps, EDTA Not Reportable 07/07/21 04:43 Large Platelets Not Reportable 07/07/21 04:43 Giant Platelets Not Reportable 07/07/21 04:43 Platelet Satelliting Not Reportable 07/07/21 04:43 Plt Morphology Comment Not Reportable 07/07/21 04:43 RBC Morphology Not Reportable 07/07/21 04:43 Dimorphic RBCs Not Reportable 07/07/21 04:43 Polychromasia Not Reportable 07/07/21 04:43 Hypochromasia Not Reportable 07/07/21 04:43 Poikilocytosis Not Reportable 07/07/21 04:43 Anisocytosis 1+ 07/07/21 04:43 Microcytosis Not Reportable 07/07/21 04:43 Macrocytosis Not Reportable 07/07/21 04:43 Spherocytes Not Reportable 07/07/21 04:43 Pappenheimer Bodies Not Reportable 07/07/21 04:43 Sickle Cells Not Reportable 07/07/21 04:43 Target Cells Not Reportable 07/07/21 04:43 Tear Drop Cells Not Reportable 07/07/21 04:43 Ovalocytes Not Reportable 07/07/21 04:43 Helmet Cells Not Reportable 07/07/21 04:43 [place] Bodies Not Reportable 07/07/21 04:43 [place] Rings Not Reportable 07/07/21 04:43 [place] Cells Not Reportable 07/07/21 04:43 Bite Cells Not Reportable 07/07/21 04:43 Crenated Cell Not Reportable 07/07/21 04:43 Elliptocytes Not Reportable 07/07/21 04:43 Acanthocytes (Spur) Not Reportable 07/07/21 04:43 Rouleaux Not Reportable 07/07/21 04:43 Hemoglobin C Crystals Not Reportable 07/07/21 04:43 Schistocytes Not Reportable 07/07/21 04:43 Malaria parasites Not Reportable 07/07/21 04:43 Geovanni Bodies Not Reportable 07/07/21 04:43 Hem Pathologist Commnt No 07/07/21 04:43 PT 14.7 Sec. (12.2-14.9) 06/29/21 15:15 INR 1.04 (0.87-1.13) 06/29/21 15:15 APTT 29.3 Sec. (24.2-36.6) 06/29/21 15:15 Sodium 132 mmol/L (137-145) L 07/08/21 06:45 Potassium 3.9 mmol/L (3.6-5.0) D 07/08/21 06:45 Chloride 95.6 mmol/L (98-107) L 07/08/21 06:45 Carbon Dioxide 25 mmol/L (22-30) 07/08/21 06:45 Anion Gap 15 mmol/L 07/08/21 06:45 BUN 5 mg/dL (7-17) L 07/08/21 06:45 Creatinine 0.4 mg/dL (0.6-1.2) L 07/08/21 06:45 Estimated GFR > 60 ml/min 07/08/21 06:45 BUN/Creatinine Ratio 13 % 07/08/21 06:45 Glucose 101 mg/dL (65-100) H 07/08/21 06:45 POC Glucose 126 mg/dL (70-105) H 07/06/21 16:25 Lactic Acid 1.20 mmol/L (0.7-2.0) 07/02/21 05:05 Calcium 7.5 mg/dL (8.4-10.2) L 07/08/21 06:45 Phosphorus 3.70 mg/dL (2.5-4.5) 07/08/21 06:45 Magnesium 1.70 mg/dL (1.7-2.3) 07/08/21 06:45 Total Bilirubin 0.30 mg/dL (0.1-1.2) 07/01/21 06:00 AST 262 units/L (5-40) H 07/01/21 06:00 ALT 224 units/L (7-56) H 07/01/21 06:00 Alkaline Phosphatase 94 units/L (35-129) 07/01/21 06:00 Total Protein 4.4 g/dL (6.3-8.2) L 07/01/21 06:00 Albumin 1.3 g/dL (3.9-5) L 07/01/21 06:00 Albumin/Globulin Ratio 0.4 % 07/01/21 06:00 Lipase 9 units/L (13-60) L 06/29/21 12:59 Procalcitonin 0.85 ng/mL (<0.15) 07/08/21 06:45 HCG, Qual Negative (Negative) 06/29/21 13:55 Urine Color [place] (Yellow) 06/30/21 04:37 Urine Turbidity Cloudy (Clear) 06/30/21 04:37 Urine pH 5.0 (5.0-7.0) 06/30/21 04:37 Ur Specific [place] 1.017 (1.003-1.030) 06/30/21 04:37 Urine Protein 100 mg/dl mg/dL (Negative) 06/30/21 04:37 Urine Glucose (UA) 50 mg/dL (Negative) 06/30/21 04:37 Urine Ketones Neg mg/dL (Negative) 06/30/21 04:37 Urine Blood Sm (Negative) 06/30/21 04:37 Urine Nitrite Neg (Negative) 06/30/21 04:37 Urine Bilirubin Neg (Negative) 06/30/21 04:37 Urine Urobilinogen 4.0 mg/dL (<2.0) 06/30/21 04:37 Ur Leukocyte Esterase Neg (Negative) 06/30/21 04:37 Urine WBC (Auto) 105.0 /HPF (0.0-6.0) H 06/30/21 04:37 Urine RBC (Auto) 53.0 /HPF (0.0-6.0) 06/30/21 04:37 U Epithel Cells (Auto) 14.0 /HPF (0-13.0) H 06/30/21 04:37 Urine Bacteria (Auto) 1+ /HPF (Negative) 06/30/21 04:37 Urine Creatinine < 4.2 mg/dL (0.1-20.0) 06/30/21 15:36 Urine Sodium 25 mmol/L 06/30/21 15:36 Coronavirus (PCR) Negative (Negative) 06/30/21 Unknown Blood Type O POSITIVE 07/04/21 12:54 Antibody Screen Negative 07/04/21 12:54 Crossmatch See Detail 07/04/21 12:54 Shelton/IV: Voiding Method External Female Catheter Active Medications - Current Medications Current Medications: Generic Name Dose Route Start Last Admin Trade Name Freq PRN Reason Stop Dose Admin Acetaminophen 650 mg 06/29/21 20:01 Acetaminophen 650 Mg Rect Supp [place] Q4H PRN Pain MILD(1-3)/Fever >100.5/PAYNE Hydromorphone HCl 0.5 mg 06/29/21 20:01 07/08/21 11:39 Hydromorphone 1 Mg/1 Ml Inj IV 0.5 mg Q3H PRN Administration Pain , Severe (7-10) Dextrose 1,000 mls @ 100 mls/hr 07/04/21 08:00 07/08/21 00:00 D5w IV 100 mls/hr DIRECT SOILA Administration Piperacillin Sod/Tazobactam Sod 4.5 gm in 100 mls @ 200 mls/hr 07/07/21 16:00 07/08/21 11:38 Zosyn/Ns 4.5gm/100ml IV 200 mls/hr Q8H SOILA Administration Protocol Morphine Sulfate 2 mg 06/29/21 20:01 07/06/21 18:58 Morphine 2 Mg/1 Ml Inj IV 2 mg Q4H PRN Administration Pain, Moderate (4-6) Ondansetron HCl 4 mg 06/29/21 20:01 Ondansetron 4 Mg/2 Ml Inj IV Q8H PRN Nausea And Vomiting Sodium Chloride 10 ml 06/29/21 22:00 07/07/21 09:53 Sodium Chloride 0.9% 10 Ml Flush Syringe IV 10 ml BID SOILA Administration Sodium Chloride 10 ml 06/29/21 20:01 07/08/21 11:43 Sodium Chloride 0.9% 10 Ml Flush Syringe IV 10 ml PRN PRN Administration LINE FLUSH Sodium Hypochlorite 1 applic 06/30/21 17:00 07/08/21 06:31 Sodium Hypochlorite, Dakin's Full Strength (0.5%) 473 Ml Topical Soln TP 1 applicatio Q12H SOILA Administration Nutrition/Malnutrition Assess - Dietary Evaluation Nutrition/Malnutrition Findings: Nutrition Notes Start: 06/30/21 15:52 Freq: Status: Active Protocol: Document 07/04/21 16:52 GB (Rec: 07/04/21 17:01 GB [id number]) Nutrition Notes Initial or Follow up Reassessment Other Pertinent Diagnosis Abdominal viscus perforation, pneumoperitoneum, surgery. Current Diet no diet order, should be Clear liquid diet Labs/Tests 07/04: Na 152, K 3.1, creatinine 0.5, Glucose 134, Ca 7.3 Pertinent Medications D5 (PRN) Height 5 ft 2 in Weight 102.058 kg [place] Body Weight (kg) 50.00 BMI 41.1 Weight change and time frame No new weights availalbe Weight Status Morbidly Obese Subjective/Other Information MD note 07/04: D/C NG, CLD ( clear liquid diet). Pt drinking water w/NG in place. BM: 07/04 RD: No diet order entered. Begin per MD Clear liquid diet Percent of energy/protein needs met: Clear Liquid diet does not meet 75% or greater of EEN Burn Absent Trauma Absent GI Symptoms Other Food Allergy No Skin Integrity/Comment Medial Abdominal surgical wound Current % PO Other Minimum of two criteria No #1 Nutrition Diagnosis Inadequate energy intake Comments: Pt changing from TF to PO Etiology No diet order. Pt changing from TF to PO As Evidenced by Signs and Symptoms MD recommended start clear liquid diet, no po intakes recorded Is patient on ventilator? No Is Patient Ambulatory and/or Out of Bed No REE-([facility]-confined to bed) 1945.692 Kcal/Kg value to use for calculation 15 Approximate Energy Requirements Using 1531 kcal/Kg Calculation Used for Recommendations Kcal/kg Additional Notes Protein: 0.6-0.8g/kg @ 102k-82g Fluids 1 ml/Kcal, or per MD. Nutrition Intervention Change Diet Order: Begin clear liquid diet advance to GI Soft to regular Nutrition Support: n/a Add Supplement/Snack (indicate name/kcal PRN /protein ) Goal #1 Maintain body weight within +/ -3% of current BWt during LOS. Goal #2 Diet started and tolerated advanced to GI soft to regular by f/u Goal #3 PO intake of meals to be 50% or greater daily for LOS Follow-Up By: 07/08/21 Additional Comments f/u: PO intake, diet advancement
[2021-07-08 15:51] LABS: Band Neutrophils # (Manual) 0.5 K/mm3; Total Cells Counted 100
[2021-07-08 15:52] LABS: Hypochromasia 1+; Platelet Estimate Consistent w Auto
[2021-07-09] MEDS: PIPERACIL/TAZOBACTA 4.5/NS 100 4.5 GM/100 ML VIAL IV SCH ×4 (00:07→23:55)
[2021-07-09] MEDS: HYDROmorphone 1 MG/1 ML INJ IV PRN ×4 (00:08→16:08)
[2021-07-09] MEDS: SODIUM HYPOCHLORITE, DAKIN'S FULL STRENGTH (0.5%) 473 ML TOPICAL SOLN TP SCH ×2 (04:23→17:28)
[2021-07-09 05:09] LABS: Bilirubin,Urine NEG (Negative); Blood,Urine SM (Negative); Color,Urine Yellow (Yellow); Protein,Urine <15 mg/dL mg/dL (Negative); Urobilinogen,Urine < 2.0 mg/dL (<2.0)
[2021-07-09 06:53] LABS: Hematocrit 24.6 % (30.3-42.9); Mean Corpuscular HGB Conc 33 % (30-34); Mean Corpuscular Volume 90 fl (79-97); Platelet Count 420 K/mm3 (140-440); Red Blood Count 2.73 M/mm3 (3.65-5.03); Red Cell Distribution Width 14.7 % (13.2-15.2)
[2021-07-09 07:08] LABS: Blood Urea Nitrogen 8 mg/dL (7-17); Calcium 7.4 mg/dL (8.4-10.2); Hemolysis Index 0
[2021-07-09 07:09] LABS: BUN/Creatinine Ratio 16
[2021-07-09 07:55] LABS: Total Cells Counted 100
[2021-07-09 07:56] LABS: Anisocytosis 1+; Platelet Estimate Consistent w Auto
[2021-07-09] MEDS: MORPHINE 2 MG/1 ML INJ IV PRN (11:35)
--- NOTE | 2021-07-09 14:54 | Progress Note ---
Assessment and Plan Assessment and plan: 45-year-old female who presented with diffuse abdominal pain. CT scan demonstrated pneumoperitoneum due to perforation. She was taken for emergent surgery. S/p R colectomy with end ileostomy. Patient currently stable. #E.coli sepsis-improving #Perforated abdominal viscus -POD#10 s/p R colectomy with end ileostomy -Afebrile, white blood cell count 20.3 -Abdominal wound cultures positive for 2 E. coli strains -s/p 5-day course of Rocephin -continue Zosyn -General Surgery & ID following -regular diet #Hyponatremia -Sodium 132 today -D5 infusion discontinued; likely secondary to IV fluids -will continue to monitor #Acute blood loss anemia-resolved -Hemoglobin 8.0 -will transfuse for hemoglobin less than 7 #Hypotension -Resolved -D5 infusion discontinued #Acute kidney injury -Resolved, likely secondary to vasomotor nephropathy #Elevated lactate level -Resolved -likely secondary to perforated bowel #Hypokalemia -Resolved -will continue to monitor and replete #Urinary tract infection -s/p rocephin #Discharge planning -PT/OT evaluated the patient, recs appreciated -will continue PT while inpatient, no recommendations for discharge at this time -Patient ordered to be out of bed daily, has low motivation to get out of bed and constantly seeking pain medications Disposition Plan: Pending physical therapy evaluation Total Time Spent with Patient (Minutes): 20 minutes History Interval history: No acute events overnight. Patient reports being in 10/10 pain, continues to request pain medications. Hospitalist Physical - Physical exam Narrative exam: GENERAL: Well-developed well-nourished. Lying in bed, no acute distress. CHEST/LUNGS: CTAB on room air HEART/CARDIOVASCULAR: Regular rate and rhythm. No murmur, rubs or gallops appreciated. ABDOMEN: Midline abdominal surgical incision dressed. Ostomy draining dark brown fluid. +BS. NEURO: No focal motor deficit. Follows all commands. EXTREMITIES: No cyanosis, clubbing or edema. - Constitutional Vitals: Temp Pulse Resp BP Pulse Ox 98.3 F 87 20 135/74 95 07/09/21 07:30 07/09/21 07:30 07/09/21 07:30 07/09/21 07:30 07/09/21 07:30 General appearance: Present: no acute distress, well-nourished, obese Results - Labs CBC & Chem 7: 07/09/21 05:53 07/09/21 05:53 Labs: Laboratory Last Values WBC 20.3 K/mm3 (4.5-11.0) H 07/09/21 05:53 RBC 2.73 M/mm3 (3.65-5.03) L 07/09/21 05:53 Hgb 8.0 gm/dl (10.1-14.3) L 07/09/21 05:53 Hct 24.6 % (30.3-42.9) L 07/09/21 05:53 MCV 90 fl (79-97) 07/09/21 05:53 MCH 29 pg (28-32) 07/09/21 05:53 MCHC 33 % (30-34) 07/09/21 05:53 RDW 14.7 % (13.2-15.2) 07/09/21 05:53 Plt Count 420 K/mm3 (140-440) 07/09/21 05:53 Lymph % (Auto) 5.1 % (13.4-35.0) L 06/30/21 04:52 [place] % (Auto) 4.1 % (0.0-7.3) 06/30/21 04:52 Eos % (Auto) 0.6 % (0.0-4.3) 06/30/21 04:52 Baso % (Auto) 0.2 % (0.0-1.8) 06/30/21 04:52 Lymph # (Auto) 0.6 K/mm3 (1.2-5.4) L 06/30/21 04:52 [place] # (Auto) 0.5 K/mm3 (0.0-0.8) 06/30/21 04:52 Eos # (Auto) 0.1 K/mm3 (0.0-0.4) 06/30/21 04:52 Baso # (Auto) 0.0 K/mm3 (0.0-0.1) 06/30/21 04:52 Add Manual Diff Complete 07/09/21 05:53 Total Counted 100 07/09/21 05:53 Seg Neutrophils % 90.0 % (40.0-70.0) H 06/30/21 04:52 Seg Neuts % (Manual) 94.0 % (40.0-70.0) H 07/09/21 05:53 Band Neutrophils % 2.0 % 07/08/21 06:45 Lymphocytes % (Manual) 3.0 % (13.4-35.0) L 07/09/21 05:53 Monocytes % (Manual) 2.0 % (0.0-7.3) 07/09/21 05:53 Eosinophils % (Manual) 1.0 % (0.0-4.3) 07/09/21 05:53 Basophils % (Manual) 1.0 % (0.0-1.8) 07/07/21 04:43 Metamyelocytes % 3.0 % 07/06/21 05:31 Myelocytes % 4.0 % 07/04/21 04:37 Nucleated RBC % Not Reportable 07/09/21 05:53 Seg Neutrophils # 11.0 K/mm3 (1.8-7.7) H 06/30/21 04:52 Seg Neutrophils # Man 19.1 K/mm3 (1.8-7.7) H 07/09/21 05:53 Band Neutrophils # 0.0 K/mm3 07/09/21 05:53 Lymphocytes # (Manual) 0.6 K/mm3 (1.2-5.4) L 07/09/21 05:53 Abs React Lymphs (Man) 0.0 K/mm3 07/09/21 05:53 Monocytes # (Manual) 0.4 K/mm3 (0.0-0.8) 07/09/21 05:53 Eosinophils # (Manual) 0.2 K/mm3 (0.0-0.4) 07/09/21 05:53 Basophils # (Manual) 0.0 K/mm3 (0.0-0.1) 07/09/21 05:53 Metamyelocytes # 0.0 K/mm3 07/09/21 05:53 Myelocytes # 0.0 K/mm3 07/09/21 05:53 Promyelocytes # 0.0 K/mm3 07/09/21 05:53 Blast Cells # 0.0 K/mm3 07/09/21 05:53 WBC Morphology Not Reportable 07/09/21 05:53 Hypersegmented Neuts Not Reportable 07/09/21 05:53 Hyposegmented Neuts Not Reportable 07/09/21 05:53 Hypogranular Neuts Not Reportable 07/09/21 05:53 Smudge Cells Not Reportable 07/09/21 05:53 Toxic Granulation Not Reportable 07/09/21 05:53 Toxic Vacuolation Not Reportable 07/09/21 05:53 Dohle Bodies Not Reportable 07/09/21 05:53 Pelger-Huet Anomaly Not Reportable 07/09/21 05:53 Ashlyn Rods Not Reportable 07/09/21 05:53 Platelet Estimate Consistent w auto 07/09/21 05:53 Clumped Platelets Not Reportable 07/09/21 05:53 Plt Clumps, EDTA Not Reportable 07/09/21 05:53 Large Platelets Not Reportable 07/09/21 05:53 Giant Platelets Not Reportable 07/09/21 05:53 Platelet Satelliting Not Reportable 07/09/21 05:53 Plt Morphology Comment Not Reportable 07/09/21 05:53 RBC Morphology Not Reportable 07/09/21 05:53 Dimorphic RBCs Not Reportable 07/09/21 05:53 Polychromasia Not Reportable 07/09/21 05:53 Hypochromasia Not Reportable 07/09/21 05:53 Poikilocytosis Not Reportable 07/09/21 05:53 Anisocytosis 1+ 07/09/21 05:53 Microcytosis Not Reportable 07/09/21 05:53 Macrocytosis Not Reportable 07/09/21 05:53 Spherocytes Not Reportable 07/09/21 05:53 Pappenheimer Bodies Not Reportable 07/09/21 05:53 Sickle Cells Not Reportable 07/09/21 05:53 Target Cells Not Reportable 07/09/21 05:53 Tear Drop Cells Not Reportable 07/09/21 05:53 Ovalocytes Not Reportable 07/09/21 05:53 Helmet Cells Not Reportable 07/09/21 05:53 [place] Bodies Not Reportable 07/09/21 05:53 [place] Rings Not Reportable 07/09/21 05:53 [place] Cells Not Reportable 07/09/21 05:53 Bite Cells Not Reportable 07/09/21 05:53 Crenated Cell Not Reportable 07/09/21 05:53 Elliptocytes Not Reportable 07/09/21 05:53 Acanthocytes (Spur) Not Reportable 07/09/21 05:53 Rouleaux Not Reportable 07/09/21 05:53 Hemoglobin C Crystals Not Reportable 07/09/21 05:53 Schistocytes Not Reportable 07/09/21 05:53 Malaria parasites Not Reportable 07/09/21 05:53 Geovanni Bodies Not Reportable 07/09/21 05:53 Hem Pathologist Commnt No 07/09/21 05:53 PT 14.7 Sec. (12.2-14.9) 06/29/21 15:15 INR 1.04 (0.87-1.13) 06/29/21 15:15 APTT 29.3 Sec. (24.2-36.6) 06/29/21 15:15 Sodium 132 mmol/L (137-145) L 07/09/21 05:53 Potassium 3.4 mmol/L (3.6-5.0) L 07/09/21 05:53 Chloride 94.5 mmol/L (98-107) L 07/09/21 05:53 Carbon Dioxide 26 mmol/L (22-30) 07/09/21 05:53 Anion Gap 15 mmol/L 07/09/21 05:53 BUN 8 mg/dL (7-17) 07/09/21 05:53 Creatinine 0.5 mg/dL (0.6-1.2) L 07/09/21 05:53 Estimated GFR > 60 ml/min 07/09/21 05:53 BUN/Creatinine Ratio 16 % 07/09/21 05:53 Glucose 107 mg/dL (65-100) H 07/09/21 05:53 POC Glucose 126 mg/dL (70-105) H 07/06/21 16:25 Lactic Acid 1.20 mmol/L (0.7-2.0) 07/02/21 05:05 Calcium 7.4 mg/dL (8.4-10.2) L 07/09/21 05:53 Phosphorus 3.70 mg/dL (2.5-4.5) 07/08/21 06:45 Magnesium 1.70 mg/dL (1.7-2.3) 07/08/21 06:45 Total Bilirubin 0.30 mg/dL (0.1-1.2) 07/01/21 06:00 AST 262 units/L (5-40) H 07/01/21 06:00 ALT 224 units/L (7-56) H 07/01/21 06:00 Alkaline Phosphatase 94 units/L (35-129) 07/01/21 06:00 Total Protein 4.4 g/dL (6.3-8.2) L 07/01/21 06:00 Albumin 1.3 g/dL (3.9-5) L 07/01/21 06:00 Albumin/Globulin Ratio 0.4 % 07/01/21 06:00 Lipase 9 units/L (13-60) L 06/29/21 12:59 Procalcitonin 0.85 ng/mL (<0.15) 07/08/21 06:45 HCG, Qual Negative (Negative) 06/29/21 13:55 Urine Color Yellow (Yellow) 07/09/21 05:00 Urine Turbidity Clear (Clear) 07/09/21 05:00 Urine pH 5.0 (5.0-7.0) 07/09/21 05:00 Ur Specific [place] 1.019 (1.003-1.030) 07/09/21 05:00 Urine Protein <15 mg/dl mg/dL (Negative) 07/09/21 05:00 Urine Glucose (UA) Neg mg/dL (Negative) 07/09/21 05:00 Urine Ketones Neg mg/dL (Negative) 07/09/21 05:00 Urine Blood Sm (Negative) 07/09/21 05:00 Urine Nitrite Neg (Negative) 07/09/21 05:00 Urine Bilirubin Neg (Negative) 07/09/21 05:00 Urine Urobilinogen < 2.0 mg/dL (<2.0) 07/09/21 05:00 Ur Leukocyte Esterase Neg (Negative) 07/09/21 05:00 Urine WBC (Auto) 5.0 /HPF (0.0-6.0) 07/09/21 05:00 Urine RBC (Auto) 2.0 /HPF (0.0-6.0) 07/09/21 05:00 U Epithel Cells (Auto) 4.0 /HPF (0-13.0) 07/09/21 05:00 Urine Bacteria (Auto) 1+ /HPF (Negative) 06/30/21 04:37 Urine Creatinine < 4.2 mg/dL (0.1-20.0) 06/30/21 15:36 Urine Sodium 25 mmol/L 06/30/21 15:36 Coronavirus (PCR) Negative (Negative) 06/30/21 Unknown Blood Type O POSITIVE 07/04/21 12:54 Antibody Screen Negative 07/04/21 12:54 Crossmatch See Detail 07/04/21 12:54 Shelton/IV: Voiding Method External Female Catheter Active Medications - Current Medications Current Medications: Generic Name Dose Route Start Last Admin Trade Name Freq PRN Reason Stop Dose Admin Acetaminophen 650 mg 06/29/21 20:01 Acetaminophen 650 Mg Rect Supp [place] Q4H PRN Pain MILD(1-3)/Fever >100.5/PAYNE Hydromorphone HCl 0.5 mg 06/29/21 20:01 07/09/21 07:54 Hydromorphone 1 Mg/1 Ml Inj IV 0.5 mg Q3H PRN Administration Pain , Severe (7-10) Piperacillin Sod/Tazobactam Sod 4.5 gm in 100 mls @ 200 mls/hr 07/07/21 16:00 07/09/21 12:00 Zosyn/Ns 4.5gm/100ml IV Infused Q8H SOILA Infusion Protocol Morphine Sulfate 2 mg 06/29/21 20:01 07/09/21 11:35 Morphine 2 Mg/1 Ml Inj IV 2 mg Q4H PRN Administration Pain, Moderate (4-6) Ondansetron HCl 4 mg 06/29/21 20:01 Ondansetron 4 Mg/2 Ml Inj IV Q8H PRN Nausea And Vomiting Sodium Chloride 10 ml 06/29/21 22:00 07/09/21 00:08 Sodium Chloride 0.9% 10 Ml Flush Syringe IV 10 ml BID SOILA Administration Sodium Chloride 10 ml 06/29/21 20:01 07/09/21 04:22 Sodium Chloride 0.9% 10 Ml Flush Syringe IV 10 ml PRN PRN Administration LINE FLUSH Sodium Hypochlorite 1 applic 06/30/21 17:00 07/09/21 04:23 Sodium Hypochlorite, Dakin's Full Strength (0.5%) 473 Ml Topical Soln TP 1 applicatio Q12H SOILA Administration Nutrition/Malnutrition Assess - Dietary Evaluation Nutrition/Malnutrition Findings: Nutrition Notes Start: 06/30/21 15:52 Freq: Status: Active Protocol: Document 07/08/21 16:47 JORGE (Rec: 07/08/21 17:08 JORGE [id number]) Nutrition Notes Initial or Follow up Reassessment Other Pertinent Diagnosis Surgery; R colectomy w/end ileostomy, hyponatremia, UTI. Current Diet Regular Diet (since L 07/08). Labs/Tests 07/08: Na 132, Cl 95.6, BUN 5, Crea 0.4, Glu 101, Ca 7.5. Pertinent Medications 07/08: Nutritionally unremarkable. Height 5 ft 2 in Weight 102.6 kg Goff Body Weight (kg) 50.00 BMI 41.3 Weight Status Morbidly Obese Subjective/Other Information RD consult for routine F/U. Percent of energy/protein needs met: Prescribed Regular Diet provides for energy/protein needs (2,289 Kcal/89 g) during LOS. Burn Absent Trauma Absent GI Symptoms Other Food Allergy No Skin Integrity/Comment Surgical wound. Minimum of two criteria No #1 Nutrition Diagnosis No nutrition diagnosis at this time Comments: Pt has been advanced to Regular Diet. Is patient on ventilator? No Is Patient Ambulatory and/or Out of Bed Yes REE-([place]-ambulatory/OOB) [ 2111.525 NUTR.[id number]] Kcal/Kg value to use for calculation 22 Approximate Energy Requirements Using 2257 kcal/Kg Calculation Used for Recommendations Kcal/kg Additional Notes Protein: 1.2-1.5 g/JKg; 60-75 g/day (from IBW+Surgery). Fluids 1 ml/Kcal, or as per MD . Nutrition Intervention Change Diet Order: Continue Regular Diet. Goal #1 Maintain body weight within +/ -3% of current BWt during LOS. Goal #2 Reach and maintain acceptable chemistry lab values during LOS. Follow-Up By: 07/15/21 Additional Comments Continue monitoring food tolerance, %PO intake of meals , Hydration and BM.
--- NOTE | 2021-07-09 15:37 | Progress Note ---
Assessment and Plan Cultures: 06/29/2021 blood culture: No growth 06/29/2021 intra-abdominal culture: 2x strains E coli A/P: 45-year-old female with multiple psychiatric problems, polysubstance abuse admitted with diffuse abdominal pain: #Intra-abdominal sepsis: Pneumoperitoneum: Status post right colectomy with end ileostomy, omentectomy on 06/29/[address] Miranda. #Leukocytosis, reactive thrombocytosis: Secondary to above #ALEX versus CKD: Renally dose antibiotic. Improived #Polysubstance abuse Recs: -Continue Zosyn. Given prolonged hospitalization and leukocytosis, when ready for discahrge would send with PO Levaquin 750mg q24h and metronidazole 500mg q8h until 07/14/2021 -Procal only mildly elevated G. Leslie Rivas MD [facility] ([facility]) O: [phone] F: [phone] Subjective Date of service: 07/09/21 Interval history: Afebrile, ongoing improvement in white count, though still elevated. Objective - Exam Narrative Exam: Physical Exam: Constitutional: Drowsy Head, Ears, Nose: Normocephalic, atraumatic. External ears, nose normal Eyes: Conjunctivae/corneas clear. No icterus. No ptosis. Neck: Supple, no meningeal signs Cardiovascular: S1, S2 + Respiratory: Good air entry, clear to auscultation bilaterally GI: Dressing present, ileostomy present Musculoskeletal: No pedal edema, no cyanosis. Skin: No rash or abscess Hem/Lymphatic: No palpable cervical or supraclavicular nodes. Psych: Drowsy, no agitation Neurological: Drowsy - Constitutional Vitals: Vital Signs Temp Pulse Resp BP Pulse Ox 98.3 F 87 20 135/74 95 07/09/21 07:30 07/09/21 07:30 07/09/21 07:30 07/09/21 07:30 07/09/21 07:30 Temperature -Last 24 Hours Temperature 98.3 F Temperature 98.5 F Temperature 98.2 F Temperature 98.4 F - Labs CBC & Chem 7: 07/09/21 05:53 07/09/21 05:53 Labs: Abnormal lab results 07/08/21 07/09/21 07/09/21 Range/Units 06:45 05:53 05:53 WBC 20.3 H (4.5-11.0) K/mm3 RBC 2.73 L (3.65-5.03) M/mm3 Hgb 8.0 L (10.1-14.3) gm/dl Hct 24.6 L (30.3-42.9) % Seg Neuts % (Manual) 94.0 H 94.0 H (40.0-70.0) % Lymphocytes % (Manual) 3.0 L 3.0 L (13.4-35.0) % Seg Neutrophils # Man 23.6 H 19.1 H (1.8-7.7) K/mm3 Lymphocytes # (Manual) 0.8 L 0.6 L (1.2-5.4) K/mm3 Sodium 132 L (137-145) mmol/L Potassium 3.4 L (3.6-5.0) mmol/L Chloride 94.5 L (98-107) mmol/L Creatinine 0.5 L (0.6-1.2) mg/dL Glucose 107 H (65-100) mg/dL Calcium 7.4 L (8.4-10.2) mg/dL
--- NOTE | 2021-07-09 16:14 | Progress Note ---
Assessment and Plan - Patient Problems (1) Perforated abdominal viscus Current Visit: Yes Status: Acute Plan to address problem: 1) Regular diet 2) Percocet for pain 3) Continue PT 4) CBC & BMP in the am Subjective Date of service: 07/09/21 Patient Reports: Positive: no new complaints, feels better, flatus, bowel movement Objective Vital Signs - 12hr 07/09/21 07:30 Temperature 98.3 F Pulse Rate 87 Respiratory 20 Rate Blood Pressure 135/74 O2 Sat by Pulse 95 Oximetry - Abdomen soft, not tender, bowel sounds normal, not rebound, not guarding, other (Large amount of liquid stool in ileostomy bag.) Hernia: none - Labs 07/09/21 05:53 07/09/21 05:53 Diabetes panel 07/09/21 Range/Units 05:53 Sodium 132 L (137-145) mmol/L Potassium 3.4 L (3.6-5.0) mmol/L Chloride 94.5 L (98-107) mmol/L Carbon Dioxide 26 (22-30) mmol/L BUN 8 (7-17) mg/dL Creatinine 0.5 L (0.6-1.2) mg/dL Glucose 107 H (65-100) mg/dL Calcium 7.4 L (8.4-10.2) mg/dL Calcium panel 07/09/21 Range/Units 05:53 Calcium 7.4 L (8.4-10.2) mg/dL Pituitary panel 07/09/21 Range/Units 05:53 Sodium 132 L (137-145) mmol/L Potassium 3.4 L (3.6-5.0) mmol/L Chloride 94.5 L (98-107) mmol/L Carbon Dioxide 26 (22-30) mmol/L BUN 8 (7-17) mg/dL Creatinine 0.5 L (0.6-1.2) mg/dL Glucose 107 H (65-100) mg/dL Calcium 7.4 L (8.4-10.2) mg/dL Adrenal panel 07/09/21 Range/Units 05:53 Sodium 132 L (137-145) mmol/L Potassium 3.4 L (3.6-5.0) mmol/L Chloride 94.5 L (98-107) mmol/L Carbon Dioxide 26 (22-30) mmol/L BUN 8 (7-17) mg/dL Creatinine 0.5 L (0.6-1.2) mg/dL Glucose 107 H (65-100) mg/dL Calcium 7.4 L (8.4-10.2) mg/dL
[2021-07-09] MEDS: oxyCODONE /ACETAMINOPHEN 5-325MG TAB PO PRN ×2 (17:36→23:15)
[2021-07-10] MEDS ORDERED: MORPHINE 2 MG/1 ML INJ IV ONE (00:46)
[2021-07-10] MEDS: SODIUM HYPOCHLORITE, DAKIN'S FULL STRENGTH (0.5%) 473 ML TOPICAL SOLN TP SCH ×2 (05:26→17:31)
[2021-07-10] MEDS: oxyCODONE /ACETAMINOPHEN 5-325MG TAB PO PRN ×4 (05:28→23:30)
[2021-07-10 07:00] LABS: Basophils # (Auto) 0.1 K/mm3 (0.0-0.1); Basophils % (Auto) 0.5 % (0.0-1.8); Eosinophils # (Auto) 0.2 K/mm3 (0.0-0.4); Eosinophils % (Auto) 1.3 % (0.0-4.3); Hemoglobin 7.9 gm/dl (10.1-14.3); Lymphocytes # (Auto) 1.7 K/mm3 (1.2-5.4); Monocytes # (Auto) 0.9 K/mm3 (0.0-0.8); Monocytes % (Auto) 5.6 % (0.0-7.3)
[2021-07-10 07:24] LABS: Blood Urea Nitrogen 6 mg/dL (7-17); Calcium 7.8 mg/dL (8.4-10.2); Hemolysis Index 1
[2021-07-10 07:26] LABS: BUN/Creatinine Ratio 12
[2021-07-10 07:27] LABS: Hematocrit 24.6 % (30.3-42.9); Mean Corpuscular HGB Conc 33 % (30-34); Mean Corpuscular Volume 93 fl (79-97); Platelet Count 462 K/mm3 (140-440); Red Blood Count 2.65 M/mm3 (3.65-5.03); Red Cell Distribution Width 14.5 % (13.2-15.2)
[2021-07-10] MEDS: PIPERACIL/TAZOBACTA 4.5/NS 100 4.5 GM/100 ML VIAL IV SCH ×2 (11:15→17:31)
--- NOTE | 2021-07-10 12:23 | Progress Note ---
Assessment and Plan Cultures: 06/29/2021 blood culture: No growth 06/29/2021 intra-abdominal culture: 2x strains E coli A/P: 45-year-old female with multiple psychiatric problems, polysubstance abuse admitted with diffuse abdominal pain: #Intra-abdominal sepsis: Pneumoperitoneum: Status post right colectomy with end ileostomy, omentectomy on 06/29/[address] Miranda. #Leukocytosis, reactive thrombocytosis: Secondary to above #ALEX versus CKD: Renally dose antibiotic. Improived #Polysubstance abuse Recs: -Continue Zosyn. Given prolonged hospitalization and leukocytosis, when ready for discharge would send with PO Levaquin 750mg q24h and metronidazole 500mg q8h until 07/14/2021 -Procal only mildly elevated G. Leslie Rivas MD [facility] ([facility]) O: [phone] F: [phone] Subjective Date of service: 07/10/21 Interval history: Afebrile, white count improving to 16.6. Objective - Exam Narrative Exam: Physical Exam: Constitutional: Drowsy Head, Ears, Nose: Normocephalic, atraumatic. External ears, nose normal Eyes: Conjunctivae/corneas clear. No icterus. No ptosis. Neck: Supple, no meningeal signs Cardiovascular: S1, S2 + Respiratory: Good air entry, clear to auscultation bilaterally GI: Dressing present, ileostomy present Musculoskeletal: No pedal edema, no cyanosis. Skin: No rash or abscess Hem/Lymphatic: No palpable cervical or supraclavicular nodes. Psych: Drowsy, no agitation Neurological: Drowsy - Constitutional Vitals: Vital Signs Temp Pulse Resp BP Pulse Ox 98.2 F 85 18 121/63 95 07/10/21 06:54 07/10/21 06:54 07/10/21 06:54 07/10/21 06:54 07/10/21 10:00 Temperature -Last 24 Hours Temperature 98.2 F Temperature 98.2 F Temperature 98.4 F Temperature 98.5 F Temperature 98.2 F - Labs CBC & Chem 7: 07/10/21 04:52 07/10/21 04:52 Labs: Abnormal lab results 07/10/21 07/10/21 Range/Units 04:52 04:52 WBC 16.6 H (4.5-11.0) K/mm3 RBC 2.65 L (3.65-5.03) M/mm3 Hgb 7.9 L (10.1-14.3) gm/dl Hct 24.6 L (30.3-42.9) % Plt Count 462 H (140-440) K/mm3 Lymph % (Auto) 10.0 L (13.4-35.0) % [place] # (Auto) 0.9 H (0.0-0.8) K/mm3 Seg Neutrophils % 82.6 H (40.0-70.0) % Seg Neutrophils # 13.7 H (1.8-7.7) K/mm3 Sodium 134 L (137-145) mmol/L BUN 6 L (7-17) mg/dL Creatinine 0.5 L (0.6-1.2) mg/dL Calcium 7.8 L (8.4-10.2) mg/dL
--- NOTE | 2021-07-10 15:05 | Progress Note ---
Assessment and Plan Assessment and plan: 45-year-old female who presented with diffuse abdominal pain. CT scan demonstrated pneumoperitoneum due to perforation. She was taken for emergent surgery. S/p R colectomy with end ileostomy. Patient currently stable. #E.coli sepsis-improving #Perforated abdominal viscus -s/p R colectomy with end ileostomy -Afebrile, white blood cell count downtrending -Abdominal wound cultures positive for 2 E. coli strains -s/p 5-day course of Rocephin -continue Zosyn: will need complete antibiotics until 07/14 -outpatient regimen per ID recommendations: levaquin 750mg qday and flagyl 500mg q8h -regular diet #Hyponatremia -improving -will continue to monitor #Acute blood loss anemia-resolved -Hemoglobin 8.0 -will transfuse for hemoglobin less than 7 #Hypotension -Resolved #Acute kidney injury -Resolved, likely secondary to vasomotor nephropathy #Elevated lactate level -Resolved -likely secondary to perforated bowel #Hypokalemia -will continue to monitor and replete #Urinary tract infection -s/p rocephin #Discharge planning -PT/OT evaluated the patient, recs appreciated -will continue PT while inpatient, no recommendations for discharge at this time -patient ordered to be out of bed daily, has low motivation to get out of bed and constantly seeking pain medications Disposition Plan: Home Total Time Spent with Patient (Minutes): 20 minutes History Interval history: No acute events overnight. Patient continuing to request pain medication. Reports "pain all over". No other complaints. Hospitalist Physical - Physical exam Narrative exam: GENERAL: Well-developed well-nourished. Lying in bed, no acute distress. CHEST/LUNGS: CTAB on room air HEART/CARDIOVASCULAR: Regular rate and rhythm. No murmur, rubs or gallops appreciated. ABDOMEN: Midline abdominal surgical incision dressed. Ostomy draining dark brown fluid. +BS. NEURO: No focal motor deficit. Follows all commands. EXTREMITIES: No cyanosis, clubbing or edema. - Constitutional Vitals: Temp Pulse Resp BP Pulse Ox 98.2 F 85 18 121/63 95 07/10/21 06:54 07/10/21 06:54 07/10/21 06:54 07/10/21 06:54 07/10/21 10:00 General appearance: Present: no acute distress, well-nourished, obese Results - Labs CBC & Chem 7: 07/11/21 04:17 07/11/21 04:17 Labs: Laboratory Last Values WBC 16.6 K/mm3 (4.5-11.0) H 07/10/21 04:52 RBC 2.65 M/mm3 (3.65-5.03) L 07/10/21 04:52 Hgb 7.9 gm/dl (10.1-14.3) L 07/10/21 04:52 Hct 24.6 % (30.3-42.9) L 07/10/21 04:52 MCV 93 fl (79-97) 07/10/21 04:52 MCH 30 pg (28-32) 07/10/21 04:52 MCHC 33 % (30-34) 07/10/21 04:52 RDW 14.5 % (13.2-15.2) 07/10/21 04:52 Plt Count 462 K/mm3 (140-440) H 07/10/21 04:52 Lymph % (Auto) 10.0 % (13.4-35.0) L 07/10/21 04:52 Wayne % (Auto) 5.6 % (0.0-7.3) 07/10/21 04:52 Eos % (Auto) 1.3 % (0.0-4.3) 07/10/21 04:52 Baso % (Auto) 0.5 % (0.0-1.8) 07/10/21 04:52 Lymph # (Auto) 1.7 K/mm3 (1.2-5.4) 07/10/21 04:52 Wayne # (Auto) 0.9 K/mm3 (0.0-0.8) H 07/10/21 04:52 Eos # (Auto) 0.2 K/mm3 (0.0-0.4) 07/10/21 04:52 Baso # (Auto) 0.1 K/mm3 (0.0-0.1) 07/10/21 04:52 Add Manual Diff Complete 07/09/21 05:53 Total Counted 100 07/09/21 05:53 Seg Neutrophils % 82.6 % (40.0-70.0) H 07/10/21 04:52 Seg Neuts % (Manual) 94.0 % (40.0-70.0) H 07/09/21 05:53 Band Neutrophils % 2.0 % 07/08/21 06:45 Lymphocytes % (Manual) 3.0 % (13.4-35.0) L 07/09/21 05:53 Monocytes % (Manual) 2.0 % (0.0-7.3) 07/09/21 05:53 Eosinophils % (Manual) 1.0 % (0.0-4.3) 07/09/21 05:53 Basophils % (Manual) 1.0 % (0.0-1.8) 07/07/21 04:43 Metamyelocytes % 3.0 % 07/06/21 05:31 Myelocytes % 4.0 % 07/04/21 04:37 Nucleated RBC % Not Reportable 07/09/21 05:53 Seg Neutrophils # 13.7 K/mm3 (1.8-7.7) H 07/10/21 04:52 Seg Neutrophils # Man 19.1 K/mm3 (1.8-7.7) H 07/09/21 05:53 Band Neutrophils # 0.0 K/mm3 07/09/21 05:53 Lymphocytes # (Manual) 0.6 K/mm3 (1.2-5.4) L 07/09/21 05:53 Abs React Lymphs (Man) 0.0 K/mm3 07/09/21 05:53 Monocytes # (Manual) 0.4 K/mm3 (0.0-0.8) 07/09/21 05:53 Eosinophils # (Manual) 0.2 K/mm3 (0.0-0.4) 07/09/21 05:53 Basophils # (Manual) 0.0 K/mm3 (0.0-0.1) 07/09/21 05:53 Metamyelocytes # 0.0 K/mm3 07/09/21 05:53 Myelocytes # 0.0 K/mm3 07/09/21 05:53 Promyelocytes # 0.0 K/mm3 07/09/21 05:53 Blast Cells # 0.0 K/mm3 07/09/21 05:53 WBC Morphology Not Reportable 07/09/21 05:53 Hypersegmented Neuts Not Reportable 07/09/21 05:53 Hyposegmented Neuts Not Reportable 07/09/21 05:53 Hypogranular Neuts Not Reportable 07/09/21 05:53 Smudge Cells Not Reportable 07/09/21 05:53 Toxic Granulation Not Reportable 07/09/21 05:53 Toxic Vacuolation Not Reportable 07/09/21 05:53 Dohle Bodies Not Reportable 07/09/21 05:53 Pelger-Huet Anomaly Not Reportable 07/09/21 05:53 Ashlyn Rods Not Reportable 07/09/21 05:53 Platelet Estimate Consistent w auto 07/09/21 05:53 Clumped Platelets Not Reportable 07/09/21 05:53 Plt Clumps, EDTA Not Reportable 07/09/21 05:53 Large Platelets Not Reportable 07/09/21 05:53 Giant Platelets Not Reportable 07/09/21 05:53 Platelet Satelliting Not Reportable 07/09/21 05:53 Plt Morphology Comment Not Reportable 07/09/21 05:53 RBC Morphology Not Reportable 07/09/21 05:53 Dimorphic RBCs Not Reportable 07/09/21 05:53 Polychromasia Not Reportable 07/09/21 05:53 Hypochromasia Not Reportable 07/09/21 05:53 Poikilocytosis Not Reportable 07/09/21 05:53 Anisocytosis 1+ 07/09/21 05:53 Microcytosis Not Reportable 07/09/21 05:53 Macrocytosis Not Reportable 07/09/21 05:53 Spherocytes Not Reportable 07/09/21 05:53 Pappenheimer Bodies Not Reportable 07/09/21 05:53 Sickle Cells Not Reportable 07/09/21 05:53 Target Cells Not Reportable 07/09/21 05:53 Tear Drop Cells Not Reportable 07/09/21 05:53 Ovalocytes Not Reportable 07/09/21 05:53 Helmet Cells Not Reportable 07/09/21 05:53 [place] Bodies Not Reportable 07/09/21 05:53 Bigelow Rings Not Reportable 07/09/21 05:53 Lila Cells Not Reportable 07/09/21 05:53 Bite Cells Not Reportable 07/09/21 05:53 Crenated Cell Not Reportable 07/09/21 05:53 Elliptocytes Not Reportable 07/09/21 05:53 Acanthocytes (Spur) Not Reportable 07/09/21 05:53 Rouleaux Not Reportable 07/09/21 05:53 Hemoglobin C Crystals Not Reportable 07/09/21 05:53 Schistocytes Not Reportable 07/09/21 05:53 Malaria parasites Not Reportable 07/09/21 05:53 Geovanni Bodies Not Reportable 07/09/21 05:53 Hem Pathologist Commnt No 07/09/21 05:53 PT 14.7 Sec. (12.2-14.9) 06/29/21 15:15 INR 1.04 (0.87-1.13) 06/29/21 15:15 APTT 29.3 Sec. (24.2-36.6) 06/29/21 15:15 Sodium 134 mmol/L (137-145) L 07/10/21 04:52 Potassium 3.6 mmol/L (3.6-5.0) 07/10/21 04:52 Chloride 98.2 mmol/L (98-107) 07/10/21 04:52 Carbon Dioxide 25 mmol/L (22-30) 07/10/21 04:52 Anion Gap 14 mmol/L 07/10/21 04:52 BUN 6 mg/dL (7-17) L 07/10/21 04:52 Creatinine 0.5 mg/dL (0.6-1.2) L 07/10/21 04:52 Estimated GFR > 60 ml/min 07/10/21 04:52 BUN/Creatinine Ratio 12 % 07/10/21 04:52 Glucose 98 mg/dL (65-100) 07/10/21 04:52 POC Glucose 126 mg/dL (70-105) H 07/06/21 16:25 Lactic Acid 1.20 mmol/L (0.7-2.0) 07/02/21 05:05 Calcium 7.8 mg/dL (8.4-10.2) L 07/10/21 04:52 Phosphorus 3.70 mg/dL (2.5-4.5) 07/08/21 06:45 Magnesium 1.70 mg/dL (1.7-2.3) 07/08/21 06:45 Total Bilirubin 0.30 mg/dL (0.1-1.2) 07/01/21 06:00 AST 262 units/L (5-40) H 07/01/21 06:00 ALT 224 units/L (7-56) H 07/01/21 06:00 Alkaline Phosphatase 94 units/L (35-129) 07/01/21 06:00 Total Protein 4.4 g/dL (6.3-8.2) L 07/01/21 06:00 Albumin 1.3 g/dL (3.9-5) L 07/01/21 06:00 Albumin/Globulin Ratio 0.4 % 07/01/21 06:00 Lipase 9 units/L (13-60) L 06/29/21 12:59 Procalcitonin 0.85 ng/mL (<0.15) 07/08/21 06:45 HCG, Qual Negative (Negative) 06/29/21 13:55 Urine Color Yellow (Yellow) 07/09/21 05:00 Urine Turbidity Clear (Clear) 07/09/21 05:00 Urine pH 5.0 (5.0-7.0) 07/09/21 05:00 Ur Specific Bone Gap 1.019 (1.003-1.030) 07/09/21 05:00 Urine Protein <15 mg/dl mg/dL (Negative) 07/09/21 05:00 Urine Glucose (UA) Neg mg/dL (Negative) 07/09/21 05:00 Urine Ketones Neg mg/dL (Negative) 07/09/21 05:00 Urine Blood Sm (Negative) 07/09/21 05:00 Urine Nitrite Neg (Negative) 07/09/21 05:00 Urine Bilirubin Neg (Negative) 07/09/21 05:00 Urine Urobilinogen < 2.0 mg/dL (<2.0) 07/09/21 05:00 Ur Leukocyte Esterase Neg (Negative) 07/09/21 05:00 Urine WBC (Auto) 5.0 /HPF (0.0-6.0) 07/09/21 05:00 Urine RBC (Auto) 2.0 /HPF (0.0-6.0) 07/09/21 05:00 U Epithel Cells (Auto) 4.0 /HPF (0-13.0) 07/09/21 05:00 Urine Bacteria (Auto) 1+ /HPF (Negative) 06/30/21 04:37 Urine Creatinine < 4.2 mg/dL (0.1-20.0) 06/30/21 15:36 Urine Sodium 25 mmol/L 06/30/21 15:36 Coronavirus (PCR) Negative (Negative) 06/30/21 Unknown Blood Type O POSITIVE 07/04/21 12:54 Antibody Screen Negative 07/04/21 12:54 Crossmatch See Detail 07/04/21 12:54 Shelton/IV: Voiding Method External Female Catheter Active Medications - Current Medications Current Medications: Generic Name Dose Route Start Last Admin Trade Name Freq PRN Reason Stop Dose Admin Acetaminophen 650 mg 06/29/21 20:01 Acetaminophen 650 Mg Rect Supp ME Q4H PRN Pain MILD(1-3)/Fever >100.5/PAYNE Piperacillin Sod/Tazobactam Sod 4.5 gm in 100 mls @ 200 mls/hr 07/07/21 16:00 07/10/21 11:15 Zosyn/Ns 4.5gm/100ml IV 200 mls/hr Q8H SOILA Administration Protocol Ondansetron HCl 4 mg 06/29/21 20:01 Ondansetron 4 Mg/2 Ml Inj IV Q8H PRN Nausea And Vomiting Oxycodone/Acetaminophen 2 tab 07/09/21 16:11 07/10/21 11:28 Oxycodone /Acetaminophen 5-325mg Tab PO 2 tab Q6H PRN Administration Pain, Moderate (4-6) Sodium Chloride 10 ml 06/29/21 22:00 07/10/21 11:16 Sodium Chloride 0.9% 10 Ml Flush Syringe IV 10 ml BID SOILA Administration Sodium Chloride 10 ml 06/29/21 20:01 07/09/21 04:22 Sodium Chloride 0.9% 10 Ml Flush Syringe IV 10 ml PRN PRN Administration LINE FLUSH Sodium Hypochlorite 1 applic 06/30/21 17:00 07/10/21 05:26 Sodium Hypochlorite, Dakin's Full Strength (0.5%) 473 Ml Topical Soln TP 1 applicatio Q12H SOILA Administration Nutrition/Malnutrition Assess - Dietary Evaluation Nutrition/Malnutrition Findings: Nutrition Notes Start: 06/30/21 15:52 Freq: Status: Active Protocol: Document 07/08/21 16:47 JORGE (Rec: 07/08/21 17:08 JORGE [id number]) Nutrition Notes Initial or Follow up Reassessment Other Pertinent Diagnosis Surgery; R colectomy w/end ileostomy, hyponatremia, UTI. Current Diet Regular Diet (since L 07/08). Labs/Tests 07/08: Na 132, Cl 95.6, BUN 5, Crea 0.4, Glu 101, Ca 7.5. Pertinent Medications 07/08: Nutritionally unremarkable. Height 5 ft 2 in Weight 102.6 kg [place] Body Weight (kg) 50.00 BMI 41.3 Weight Status Morbidly Obese Subjective/Other Information RD consult for routine F/U. Percent of energy/protein needs met: Prescribed Regular Diet provides for energy/protein needs (2,289 Kcal/89 g) during LOS. Burn Absent Trauma Absent GI Symptoms Other Food Allergy No Skin Integrity/Comment Surgical wound. Minimum of two criteria No #1 Nutrition Diagnosis No nutrition diagnosis at this time Comments: Pt has been advanced to Regular Diet. Is patient on ventilator? No Is Patient Ambulatory and/or Out of Bed Yes REE-([facility]-ambulatory/OOB) [ 2111.525 [id number]] Kcal/Kg value to use for calculation 22 Approximate Energy Requirements Using 2257 kcal/Kg Calculation Used for Recommendations Kcal/kg Additional Notes Protein: 1.2-1.5 g/JKg; 60-75 g/day (from IBW+Surgery). Fluids 1 ml/Kcal, or as per MD . Nutrition Intervention Change Diet Order: Continue Regular Diet. Goal #1 Maintain body weight within +/ -3% of current BWt during LOS. Goal #2 Reach and maintain acceptable chemistry lab values during LOS. Follow-Up By: 07/15/21 Additional Comments Continue monitoring food tolerance, %PO intake of meals , Hydration and BM.
--- NOTE | 2021-07-10 16:28 | Progress Note ---
Assessment and Plan - Patient Problems (1) Perforated abdominal viscus Current Visit: Yes Status: Acute Plan to address problem: 1) No new recommendations. Pt can be discharged once appropriate arrangements are made. 2) Dr. Shrestha will round 07/11-07/13/21. Subjective Date of service: 07/10/21 Patient Reports: Positive: no new complaints, feels better Objective Vital Signs - 12hr 07/10/21 07/10/21 07/10/21 05:28 06:54 10:00 Temperature 98.2 F Pulse Rate 85 Respiratory 18 18 Rate Blood Pressure 121/63 O2 Sat by Pulse 95 95 Oximetry 07/10/21 07/10/21 10:54 15:57 Temperature 95.8 F L 98.0 F Pulse Rate 86 92 H Respiratory 20 20 Rate Blood Pressure 123/69 113/74 O2 Sat by Pulse 97 97 Oximetry - Abdomen soft, not tender, bowel sounds normal, not distended, not rebound, not guarding (Large amount of liquid stool in ileostomy bag.) Hernia: none - Labs 07/10/21 04:52 07/10/21 04:52 Diabetes panel 07/10/21 Range/Units 04:52 Sodium 134 L (137-145) mmol/L Potassium 3.6 (3.6-5.0) mmol/L Chloride 98.2 (98-107) mmol/L Carbon Dioxide 25 (22-30) mmol/L BUN 6 L (7-17) mg/dL Creatinine 0.5 L (0.6-1.2) mg/dL Glucose 98 (65-100) mg/dL Calcium 7.8 L (8.4-10.2) mg/dL Calcium panel 07/10/21 Range/Units 04:52 Calcium 7.8 L (8.4-10.2) mg/dL Pituitary panel 07/10/21 Range/Units 04:52 Sodium 134 L (137-145) mmol/L Potassium 3.6 (3.6-5.0) mmol/L Chloride 98.2 (98-107) mmol/L Carbon Dioxide 25 (22-30) mmol/L BUN 6 L (7-17) mg/dL Creatinine 0.5 L (0.6-1.2) mg/dL Glucose 98 (65-100) mg/dL Calcium 7.8 L (8.4-10.2) mg/dL Adrenal panel 07/10/21 Range/Units 04:52 Sodium 134 L (137-145) mmol/L Potassium 3.6 (3.6-5.0) mmol/L Chloride 98.2 (98-107) mmol/L Carbon Dioxide 25 (22-30) mmol/L BUN 6 L (7-17) mg/dL Creatinine 0.5 L (0.6-1.2) mg/dL Glucose 98 (65-100) mg/dL Calcium 7.8 L (8.4-10.2) mg/dL
[2021-07-11] MEDS: PIPERACIL/TAZOBACTA 4.5/NS 100 4.5 GM/100 ML VIAL IV SCH ×4 (00:10→23:10)
[2021-07-11] MEDS: SODIUM HYPOCHLORITE, DAKIN'S FULL STRENGTH (0.5%) 473 ML TOPICAL SOLN TP SCH ×2 (05:11→17:09)
[2021-07-11] MEDS: oxyCODONE /ACETAMINOPHEN 5-325MG TAB PO PRN ×3 (05:12→22:21)
[2021-07-11 06:04] LABS: Basophils % (Auto) 0.3 % (0.0-1.8); Eosinophils # (Auto) 0.2 K/mm3 (0.0-0.4); Eosinophils % (Auto) 1.2 % (0.0-4.3); Hematocrit 25.2 % (30.3-42.9); Hemoglobin 7.9 gm/dl (10.1-14.3); Lymphocytes # (Auto) 1.7 K/mm3 (1.2-5.4); Lymphocytes % (Auto) 10.9 % (13.4-35.0); Mean Corpuscular HGB Conc 31 % (30-34); Mean Corpuscular Volume 92 fl (79-97); Monocytes # (Auto) 0.9 K/mm3 (0.0-0.8); Monocytes % (Auto) 5.9 % (0.0-7.3); Platelet Count 524 K/mm3 (140-440); Red Blood Count 2.73 M/mm3 (3.65-5.03); Red Cell Distribution Width 14.7 % (13.2-15.2)
[2021-07-11 06:16] LABS: Blood Urea Nitrogen 4 mg/dL (7-17); Calcium 7.7 mg/dL (8.4-10.2); Hemolysis Index 12
[2021-07-11 06:18] LABS: BUN/Creatinine Ratio 10
--- NOTE | 2021-07-11 13:08 | Progress Note ---
Assessment and Plan Cultures: 06/29/2021 blood culture: No growth 06/29/2021 intra-abdominal culture: 2x strains E coli A/P: 45-year-old female with multiple psychiatric problems, polysubstance abuse admitted with diffuse abdominal pain: #Intra-abdominal sepsis: Pneumoperitoneum: Status post right colectomy with end ileostomy, omentectomy on 06/29/[address] Miranda. #Leukocytosis, reactive thrombocytosis: Secondary to above #ALEX versus CKD: Renally dose antibiotic. Improived #Polysubstance abuse Recs: -Continue Zosyn. Given prolonged hospitalization and leukocytosis, when ready for discharge would send with PO Levaquin 750mg q24h and metronidazole 500mg q8h until 07/14/2021 -Procal only mildly elevated ID will sign off. Please call with questions. Walter Rivas MD [facility] [place] O: [phone] F: [phone] Subjective Date of service: 07/11/21 Interval history: Afebrile, white count continues to slowly improve, now 15.8. Objective - Exam Narrative Exam: Physical Exam: Constitutional: Drowsy Head, Ears, Nose: Normocephalic, atraumatic. External ears, nose normal Eyes: Conjunctivae/corneas clear. No icterus. No ptosis. Neck: Supple, no meningeal signs Cardiovascular: S1, S2 + Respiratory: Good air entry, clear to auscultation bilaterally GI: Dressing present, ileostomy present Musculoskeletal: No pedal edema, no cyanosis. Skin: No rash or abscess Hem/Lymphatic: No palpable cervical or supraclavicular nodes. Psych: Drowsy, no agitation Neurological: Drowsy - Constitutional Vitals: Vital Signs Temp Pulse Resp BP Pulse Ox 97.6 F 88 18 114/64 96 07/11/21 12:04 07/11/21 12:04 07/11/21 12:04 07/11/21 12:04 07/11/21 12:04 Temperature -Last 24 Hours Temperature 97.6 F Temperature 98.4 F Temperature 98.3 F Temperature 99.1 F Temperature 98.6 F Temperature 98.0 F - Labs CBC & Chem 7: 07/11/21 04:17 07/11/21 04:17 Labs: Abnormal lab results 07/11/21 07/11/21 Range/Units 04:17 04:17 WBC 15.8 H (4.5-11.0) K/mm3 RBC 2.73 L (3.65-5.03) M/mm3 Hgb 7.9 L (10.1-14.3) gm/dl Hct 25.2 L (30.3-42.9) % Plt Count 524 H (140-440) K/mm3 Lymph % (Auto) 10.9 L (13.4-35.0) % O'Brien # (Auto) 0.9 H (0.0-0.8) K/mm3 Seg Neutrophils % 81.7 H (40.0-70.0) % Seg Neutrophils # 12.9 H (1.8-7.7) K/mm3 Sodium 134 L (137-145) mmol/L Potassium 3.5 L (3.6-5.0) mmol/L BUN 4 L (7-17) mg/dL Creatinine 0.4 L (0.6-1.2) mg/dL Glucose 101 H (65-100) mg/dL Calcium 7.7 L (8.4-10.2) mg/dL
--- NOTE | 2021-07-11 14:13 | Progress Note ---
Assessment and Plan Assessment and plan: 45-year-old female who presented with diffuse abdominal pain. CT scan demonstrated pneumoperitoneum due to perforation. She was taken for emergent surgery. S/p R colectomy with end ileostomy. Patient currently stable. #E.coli sepsis-improving #Perforated abdominal viscus -s/p R colectomy with end ileostomy -Afebrile, white blood cell count downtrending -Abdominal wound cultures positive for 2 E. coli strains -s/p 5-day course of Rocephin -continue Zosyn: will need complete antibiotics until 07/14 -outpatient regimen per ID recommendations: levaquin 750mg qday and flagyl 500mg q8h -regular diet #Hyponatremia -Sodium 134 today -will continue to monitor #Acute blood loss anemia-resolved -Hemoglobin 7.9 -will transfuse for hemoglobin less than 7 #Hypotension -Resolved #Acute kidney injury -Resolved, likely secondary to vasomotor nephropathy #Elevated lactate level -Resolved -likely secondary to perforated bowel #Hypokalemia -will continue to monitor and replete #Urinary tract infection -s/p rocephin #Discharge planning -PT/OT evaluated the patient, recs appreciated -will continue PT while inpatient, no recommendations for discharge at this time -Patient ordered to be out of bed daily, has low motivation to get out of bed and constantly seeking pain medications -plan to discharge in the upcoming days back to family Disposition Plan: Home with family Total Time Spent with Patient (Minutes): 20 minutes History Interval history: No acute events overnight. Patient reports being in 10/10 pain. Not interacting during encounter due to wanting pain medications. Hospitalist Physical - Physical exam Narrative exam: GENERAL: Well-developed well-nourished. Lying in bed, no acute distress. CHEST/LUNGS: CTAB on room air HEART/CARDIOVASCULAR: Regular rate and rhythm. No murmur, rubs or gallops rachel reciated. ABDOMEN: Midline abdominal surgical incision dressed. Ostomy draining dark b rown fluid. +BS. NEURO: No focal motor deficit. Follows all commands. EXTREMITIES: No cyanosis, clubbing or edema. - Constitutional Vitals: Temp Pulse Resp BP Pulse Ox 97.6 F 88 18 114/64 96 07/11/21 12:04 07/11/21 12:04 07/11/21 12:04 07/11/21 12:04 07/11/21 12:04 General appearance: Present: no acute distress, well-nourished, obese Results - Labs CBC & Chem 7: 07/11/21 04:17 07/11/21 04:17 Labs: Laboratory Last Values WBC 15.8 K/mm3 (4.5-11.0) H 07/11/21 04:17 RBC 2.73 M/mm3 (3.65-5.03) L 07/11/21 04:17 Hgb 7.9 gm/dl (10.1-14.3) L 07/11/21 04:17 Hct 25.2 % (30.3-42.9) L 07/11/21 04:17 MCV 92 fl (79-97) 07/11/21 04:17 MCH 29 pg (28-32) 07/11/21 04:17 MCHC 31 % (30-34) 07/11/21 04:17 RDW 14.7 % (13.2-15.2) 07/11/21 04:17 Plt Count 524 K/mm3 (140-440) H 07/11/21 04:17 Lymph % (Auto) 10.9 % (13.4-35.0) L 07/11/21 04:17 [place] % (Auto) 5.9 % (0.0-7.3) 07/11/21 04:17 Eos % (Auto) 1.2 % (0.0-4.3) 07/11/21 04:17 Baso % (Auto) 0.3 % (0.0-1.8) 07/11/21 04:17 Lymph # (Auto) 1.7 K/mm3 (1.2-5.4) 07/11/21 04:17 [place] # (Auto) 0.9 K/mm3 (0.0-0.8) H 07/11/21 04:17 Eos # (Auto) 0.2 K/mm3 (0.0-0.4) 07/11/21 04:17 Baso # (Auto) 0.0 K/mm3 (0.0-0.1) 07/11/21 04:17 Add Manual Diff Complete 07/09/21 05:53 Total Counted 100 07/09/21 05:53 Seg Neutrophils % 81.7 % (40.0-70.0) H 07/11/21 04:17 Seg Neuts % (Manual) 94.0 % (40.0-70.0) H 07/09/21 05:53 Band Neutrophils % 2.0 % 07/08/21 06:45 Lymphocytes % (Manual) 3.0 % (13.4-35.0) L 07/09/21 05:53 Monocytes % (Manual) 2.0 % (0.0-7.3) 07/09/21 05:53 Eosinophils % (Manual) 1.0 % (0.0-4.3) 07/09/21 05:53 Basophils % (Manual) 1.0 % (0.0-1.8) 07/07/21 04:43 Metamyelocytes % 3.0 % 07/06/21 05:31 Myelocytes % 4.0 % 07/04/21 04:37 Nucleated RBC % Not Reportable 07/09/21 05:53 Seg Neutrophils # 12.9 K/mm3 (1.8-7.7) H 07/11/21 04:17 Seg Neutrophils # Man 19.1 K/mm3 (1.8-7.7) H 07/09/21 05:53 Band Neutrophils # 0.0 K/mm3 07/09/21 05:53 Lymphocytes # (Manual) 0.6 K/mm3 (1.2-5.4) L 07/09/21 05:53 Abs React Lymphs (Man) 0.0 K/mm3 07/09/21 05:53 Monocytes # (Manual) 0.4 K/mm3 (0.0-0.8) 07/09/21 05:53 Eosinophils # (Manual) 0.2 K/mm3 (0.0-0.4) 07/09/21 05:53 Basophils # (Manual) 0.0 K/mm3 (0.0-0.1) 07/09/21 05:53 Metamyelocytes # 0.0 K/mm3 07/09/21 05:53 Myelocytes # 0.0 K/mm3 07/09/21 05:53 Promyelocytes # 0.0 K/mm3 07/09/21 05:53 Blast Cells # 0.0 K/mm3 07/09/21 05:53 WBC Morphology Not Reportable 07/09/21 05:53 Hypersegmented Neuts Not Reportable 07/09/21 05:53 Hyposegmented Neuts Not Reportable 07/09/21 05:53 Hypogranular Neuts Not Reportable 07/09/21 05:53 Smudge Cells Not Reportable 07/09/21 05:53 Toxic Granulation Not Reportable 07/09/21 05:53 Toxic Vacuolation Not Reportable 07/09/21 05:53 Dohle Bodies Not Reportable 07/09/21 05:53 Pelger-Huet Anomaly Not Reportable 07/09/21 05:53 Ashlyn Rods Not Reportable 07/09/21 05:53 Platelet Estimate Consistent w auto 07/09/21 05:53 Clumped Platelets Not Reportable 07/09/21 05:53 Plt Clumps, EDTA Not Reportable 07/09/21 05:53 Large Platelets Not Reportable 07/09/21 05:53 Giant Platelets Not Reportable 07/09/21 05:53 Platelet Satelliting Not Reportable 07/09/21 05:53 Plt Morphology Comment Not Reportable 07/09/21 05:53 RBC Morphology Not Reportable 07/09/21 05:53 Dimorphic RBCs Not Reportable 07/09/21 05:53 Polychromasia Not Reportable 07/09/21 05:53 Hypochromasia Not Reportable 07/09/21 05:53 Poikilocytosis Not Reportable 07/09/21 05:53 Anisocytosis 1+ 07/09/21 05:53 Microcytosis Not Reportable 07/09/21 05:53 Macrocytosis Not Reportable 07/09/21 05:53 Spherocytes Not Reportable 07/09/21 05:53 Pappenheimer Bodies Not Reportable 07/09/21 05:53 Sickle Cells Not Reportable 07/09/21 05:53 Target Cells Not Reportable 07/09/21 05:53 Tear Drop Cells Not Reportable 07/09/21 05:53 Ovalocytes Not Reportable 07/09/21 05:53 Helmet Cells Not Reportable 07/09/21 05:53 [place] Bodies Not Reportable 07/09/21 05:53 [place] Rings Not Reportable 07/09/21 05:53 [place]ila Cells Not Reportable 07/09/21 05:53 Bite Cells Not Reportable 07/09/21 05:53 Crenated Cell Not Reportable 07/09/21 05:53 Elliptocytes Not Reportable 07/09/21 05:53 Acanthocytes (Spur) Not Reportable 07/09/21 05:53 Rouleaux Not Reportable 07/09/21 05:53 Hemoglobin C Crystals Not Reportable 07/09/21 05:53 Schistocytes Not Reportable 07/09/21 05:53 Malaria parasites Not Reportable 07/09/21 05:53 Geovanni Bodies Not Reportable 07/09/21 05:53 Hem Pathologist Commnt No 07/09/21 05:53 PT 14.7 Sec. (12.2-14.9) 06/29/21 15:15 INR 1.04 (0.87-1.13) 06/29/21 15:15 APTT 29.3 Sec. (24.2-36.6) 06/29/21 15:15 Sodium 134 mmol/L (137-145) L 07/11/21 04:17 Potassium 3.5 mmol/L (3.6-5.0) L 07/11/21 04:17 Chloride 98.1 mmol/L (98-107) 07/11/21 04:17 Carbon Dioxide 23 mmol/L (22-30) 07/11/21 04:17 Anion Gap 16 mmol/L 07/11/21 04:17 BUN 4 mg/dL (7-17) L 07/11/21 04:17 Creatinine 0.4 mg/dL (0.6-1.2) L 07/11/21 04:17 Estimated GFR > 60 ml/min 07/11/21 04:17 BUN/Creatinine Ratio 10 % 07/11/21 04:17 Glucose 101 mg/dL (65-100) H 07/11/21 04:17 POC Glucose 126 mg/dL (70-105) H 07/06/21 16:25 Lactic Acid 1.20 mmol/L (0.7-2.0) 07/02/21 05:05 Calcium 7.7 mg/dL (8.4-10.2) L 07/11/21 04:17 Phosphorus 3.70 mg/dL (2.5-4.5) 07/08/21 06:45 Magnesium 1.70 mg/dL (1.7-2.3) 07/08/21 06:45 Total Bilirubin 0.30 mg/dL (0.1-1.2) 07/01/21 06:00 AST 262 units/L (5-40) H 07/01/21 06:00 ALT 224 units/L (7-56) H 07/01/21 06:00 Alkaline Phosphatase 94 units/L (35-129) 07/01/21 06:00 Total Protein 4.4 g/dL (6.3-8.2) L 07/01/21 06:00 Albumin 1.3 g/dL (3.9-5) L 07/01/21 06:00 Albumin/Globulin Ratio 0.4 % 07/01/21 06:00 Lipase 9 units/L (13-60) L 06/29/21 12:59 Procalcitonin 0.85 ng/mL (<0.15) 07/08/21 06:45 HCG, Qual Negative (Negative) 06/29/21 13:55 Urine Color Yellow (Yellow) 07/09/21 05:00 Urine Turbidity Clear (Clear) 07/09/21 05:00 Urine pH 5.0 (5.0-7.0) 07/09/21 05:00 Ur Specific [place] 1.019 (1.003-1.030) 07/09/21 05:00 Urine Protein <15 mg/dl mg/dL (Negative) 07/09/21 05:00 Urine Glucose (UA) Neg mg/dL (Negative) 07/09/21 05:00 Urine Ketones Neg mg/dL (Negative) 07/09/21 05:00 Urine Blood Sm (Negative) 07/09/21 05:00 Urine Nitrite Neg (Negative) 07/09/21 05:00 Urine Bilirubin Neg (Negative) 07/09/21 05:00 Urine Urobilinogen < 2.0 mg/dL (<2.0) 07/09/21 05:00 Ur Leukocyte Esterase Neg (Negative) 07/09/21 05:00 Urine WBC (Auto) 5.0 /HPF (0.0-6.0) 07/09/21 05:00 Urine RBC (Auto) 2.0 /HPF (0.0-6.0) 07/09/21 05:00 U Epithel Cells (Auto) 4.0 /HPF (0-13.0) 07/09/21 05:00 Urine Bacteria (Auto) 1+ /HPF (Negative) 06/30/21 04:37 Urine Creatinine < 4.2 mg/dL (0.1-20.0) 06/30/21 15:36 Urine Sodium 25 mmol/L 06/30/21 15:36 Coronavirus (PCR) Negative (Negative) 06/30/21 Unknown Blood Type O POSITIVE 07/04/21 12:54 Antibody Screen Negative 07/04/21 12:54 Crossmatch See Detail 07/04/21 12:54 [place]/IV: Voiding Method External Female Catheter Active Medications - Current Medications Current Medications: Generic Name Dose Route Start Last Admin Trade Name Freq PRN Reason Stop Dose Admin Acetaminophen 650 mg 06/29/21 20:01 Acetaminophen 650 Mg Rect Supp [place] Q4H PRN Pain MILD(1-3)/Fever >100.5/PAYNE Piperacillin Sod/Tazobactam Sod 4.5 gm in 100 mls @ 200 mls/hr 07/07/21 16:00 07/11/21 08:14 Zosyn/Ns 4.5gm/100ml IV 07/14/21 16:29 200 mls/hr Q8H SOILA Administration Protocol Ondansetron HCl 4 mg 06/29/21 20:01 Ondansetron 4 Mg/2 Ml Inj IV Q8H PRN Nausea And Vomiting Oxycodone/Acetaminophen 2 tab 07/09/21 16:11 07/11/21 13:23 Oxycodone /Acetaminophen 5-325mg Tab PO 2 tab Q6H PRN Administration Pain, Moderate (4-6) Sodium Chloride 10 ml 06/29/21 22:00 07/11/21 11:14 Sodium Chloride 0.9% 10 Ml Flush Syringe IV 10 ml BID SOILA Administration Sodium Chloride 10 ml 06/29/21 20:01 07/09/21 04:22 Sodium Chloride 0.9% 10 Ml Flush Syringe IV 10 ml PRN PRN Administration LINE FLUSH Sodium Hypochlorite 1 applic 06/30/21 17:00 07/11/21 05:11 Sodium Hypochlorite, Dakin's Full Strength (0.5%) 473 Ml Topical Soln TP 1 applicatio Q12H SOILA Administration Nutrition/Malnutrition Assess - Dietary Evaluation Nutrition/Malnutrition Findings: Nutrition Notes Start: 06/30/21 15:52 Freq: Status: Active Protocol: Document 07/08/21 16:47 JORGE (Rec: 07/08/21 17:08 JORGE [id number]) Nutrition Notes Initial or Follow up Reassessment Other Pertinent Diagnosis Surgery; R colectomy w/end ileostomy, hyponatremia, UTI. Current Diet Regular Diet (since L 07/08). Labs/Tests 07/08: Na 132, Cl 95.6, BUN 5, Crea 0.4, Glu 101, Ca 7.5. Pertinent Medications 07/08: Nutritionally unremarkable. Height 5 ft 2 in Weight 102.6 kg [place] Body Weight (kg) 50.00 BMI 41.3 Weight Status Morbidly Obese Subjective/Other Information RD consult for routine F/U. Percent of energy/protein needs met: Prescribed Regular Diet provides for energy/protein needs (2,289 Kcal/89 g) during LOS. Burn Absent Trauma Absent GI Symptoms Other Food Allergy No Skin Integrity/Comment Surgical wound. Minimum of two criteria No #1 Nutrition Diagnosis No nutrition diagnosis at this time Comments: Pt has been advanced to Regular Diet. Is patient on ventilator? No Is Patient Ambulatory and/or Out of Bed Yes REE-([place] Jeor-ambulatory/OOB) [ 2111.525 NUTR.[id number]] Kcal/Kg value to use for calculation 22 Approximate Energy Requirements Using 2257 kcal/Kg Calculation Used for Recommendations Kcal/kg Additional Notes Protein: 1.2-1.5 g/JKg; 60-75 g/day (from IBW+Surgery). Fluids 1 ml/Kcal, or as per MD . Nutrition Intervention Change Diet Order: Continue Regular Diet. Goal #1 Maintain body weight within +/ -3% of current BWt during LOS. Goal #2 Reach and maintain acceptable chemistry lab values during LOS. Follow-Up By: 07/15/21 Additional Comments Continue monitoring food tolerance, %PO intake of meals , Hydration and BM.
[2021-07-12] MEDS: oxyCODONE /ACETAMINOPHEN 5-325MG TAB PO PRN ×4 (04:08→23:35)
[2021-07-12 05:45] LABS: Hematocrit 25.2 % (30.3-42.9); Hemoglobin 8.3 gm/dl (10.1-14.3); Mean Corpuscular HGB Conc 33 % (30-34); Mean Corpuscular Volume 93 fl (79-97); Platelet Count 646 K/mm3 (140-440); Red Blood Count 2.72 M/mm3 (3.65-5.03); Red Cell Distribution Width 14.9 % (13.2-15.2)
[2021-07-12] MEDS: SODIUM HYPOCHLORITE, DAKIN'S FULL STRENGTH (0.5%) 473 ML TOPICAL SOLN TP SCH ×2 (05:45→17:41)
[2021-07-12 06:00] LABS: Blood Urea Nitrogen 5 mg/dL (7-17); Calcium 7.8 mg/dL (8.4-10.2); Hemolysis Index 0
[2021-07-12 06:01] LABS: BUN/Creatinine Ratio 10
[2021-07-12] MEDS: PIPERACIL/TAZOBACTA 4.5/NS 100 4.5 GM/100 ML VIAL IV SCH ×3 (08:25→23:30)
--- NOTE | 2021-07-12 11:45 | Progress Note ---
Assessment and Plan Assessment and plan: 45-year-old female who presented with diffuse abdominal pain. CT scan demonstrated pneumoperitoneum due to perforation. She was taken for emergent surgery. S/p R colectomy with end ileostomy. Patient currently stable. #E.coli sepsis-improving #Perforated abdominal viscus -s/p R colectomy with end ileostomy -Afebrile, white blood cell count downtrending -Abdominal wound cultures positive for 2 E. coli strains -s/p 5-day course of Rocephin -continue Zosyn: will need complete antibiotics until 07/14 -outpatient regimen per ID recommendations: levaquin 750mg qday and flagyl 500mg q8h -regular diet #Hyponatremia -improving -will continue to monitor #Acute blood loss anemia-resolved -Hemoglobin 8.3 -will transfuse for hemoglobin less than 7 #Hypotension -Resolved #Acute kidney injury -Resolved, likely secondary to vasomotor nephropathy #Elevated lactate level -Resolved -likely secondary to perforated bowel #Hypokalemia -will continue to monitor and replete #Urinary tract infection -s/p rocephin #Discharge planning -patient ordered to be out of bed daily, has low motivation to get out of bed and constantly seeking pain medications -plan to discharge home in the care of mother tomorrow Disposition Plan: Home with family in a.m. Total Time Spent with Patient (Minutes): 20 minutes History Interval history: No acute events overnight. Patient continuing to request pain medication. On room air. Drinking orange. Hospitalist Physical - Physical exam Narrative exam: GENERAL: Well-developed well-nourished. Lying in bed, no acute distress. CHEST/LUNGS: CTAB on room air HEART/CARDIOVASCULAR: Regular rate and rhythm. No murmur, rubs or gallops appreciated. ABDOMEN: Midline abdominal surgical incision dressed. Ostomy draining dark brown fluid. +BS. NEURO: No focal motor deficit. Follows all commands. EXTREMITIES: No cyanosis, clubbing or edema. - Constitutional Vitals: Temp Pulse Resp BP Pulse Ox 98.6 F 89 18 112/74 94 07/12/21 07:59 07/12/21 07:59 07/12/21 07:59 07/12/21 07:59 07/12/21 10:00 General appearance: Present: no acute distress, well-nourished, obese Results - Labs CBC & Chem 7: 07/12/21 04:21 07/12/21 04:21 Labs: Laboratory Last Values WBC 14.7 K/mm3 (4.5-11.0) H 07/12/21 04:21 RBC 2.72 M/mm3 (3.65-5.03) L 07/12/21 04:21 Hgb 8.3 gm/dl (10.1-14.3) L 07/12/21 04:21 Hct 25.2 % (30.3-42.9) L 07/12/21 04:21 MCV 93 fl (79-97) 07/12/21 04:21 MCH 31 pg (28-32) 07/12/21 04:21 MCHC 33 % (30-34) 07/12/21 04:21 RDW 14.9 % (13.2-15.2) 07/12/21 04:21 Plt Count 646 K/mm3 (140-440) H 07/12/21 04:21 Lymph % (Auto) 10.9 % (13.4-35.0) L 07/11/21 04:17 [place] % (Auto) 5.9 % (0.0-7.3) 07/11/21 04:17 Eos % (Auto) 1.2 % (0.0-4.3) 07/11/21 04:17 Baso % (Auto) 0.3 % (0.0-1.8) 07/11/21 04:17 Lymph # (Auto) 1.7 K/mm3 (1.2-5.4) 07/11/21 04:17 [place] # (Auto) 0.9 K/mm3 (0.0-0.8) H 07/11/21 04:17 Eos # (Auto) 0.2 K/mm3 (0.0-0.4) 07/11/21 04:17 Baso # (Auto) 0.0 K/mm3 (0.0-0.1) 07/11/21 04:17 Add Manual Diff Complete 07/09/21 05:53 Total Counted 100 07/09/21 05:53 Seg Neutrophils % 81.7 % (40.0-70.0) H 07/11/21 04:17 Seg Neuts % (Manual) 94.0 % (40.0-70.0) H 07/09/21 05:53 Band Neutrophils % 2.0 % 07/08/21 06:45 Lymphocytes % (Manual) 3.0 % (13.4-35.0) L 07/09/21 05:53 Monocytes % (Manual) 2.0 % (0.0-7.3) 07/09/21 05:53 Eosinophils % (Manual) 1.0 % (0.0-4.3) 07/09/21 05:53 Basophils % (Manual) 1.0 % (0.0-1.8) 07/07/21 04:43 Metamyelocytes % 3.0 % 07/06/21 05:31 Myelocytes % 4.0 % 07/04/21 04:37 Nucleated RBC % Not Reportable 07/09/21 05:53 Seg Neutrophils # 12.9 K/mm3 (1.8-7.7) H 07/11/21 04:17 Seg Neutrophils # Man 19.1 K/mm3 (1.8-7.7) H 07/09/21 05:53 Band Neutrophils # 0.0 K/mm3 07/09/21 05:53 Lymphocytes # (Manual) 0.6 K/mm3 (1.2-5.4) L 07/09/21 05:53 Abs React Lymphs (Man) 0.0 K/mm3 07/09/21 05:53 Monocytes # (Manual) 0.4 K/mm3 (0.0-0.8) 07/09/21 05:53 Eosinophils # (Manual) 0.2 K/mm3 (0.0-0.4) 07/09/21 05:53 Basophils # (Manual) 0.0 K/mm3 (0.0-0.1) 07/09/21 05:53 Metamyelocytes # 0.0 K/mm3 07/09/21 05:53 Myelocytes # 0.0 K/mm3 07/09/21 05:53 Promyelocytes # 0.0 K/mm3 07/09/21 05:53 Blast Cells # 0.0 K/mm3 07/09/21 05:53 WBC Morphology Not Reportable 07/09/21 05:53 Hypersegmented Neuts Not Reportable 07/09/21 05:53 Hyposegmented Neuts Not Reportable 07/09/21 05:53 Hypogranular Neuts Not Reportable 07/09/21 05:53 Smudge Cells Not Reportable 07/09/21 05:53 Toxic Granulation Not Reportable 07/09/21 05:53 Toxic Vacuolation Not Reportable 07/09/21 05:53 Dohle Bodies Not Reportable 07/09/21 05:53 Pelger-Huet Anomaly Not Reportable 07/09/21 05:53 Ashlyn Rods Not Reportable 07/09/21 05:53 Platelet Estimate Consistent w auto 07/09/21 05:53 Clumped Platelets Not Reportable 07/09/21 05:53 Plt Clumps, EDTA Not Reportable 07/09/21 05:53 Large Platelets Not Reportable 07/09/21 05:53 Giant Platelets Not Reportable 07/09/21 05:53 Platelet Satelliting Not Reportable 07/09/21 05:53 Plt Morphology Comment Not Reportable 07/09/21 05:53 RBC Morphology Not Reportable 07/09/21 05:53 Dimorphic RBCs Not Reportable 07/09/21 05:53 Polychromasia Not Reportable 07/09/21 05:53 Hypochromasia Not Reportable 07/09/21 05:53 Poikilocytosis Not Reportable 07/09/21 05:53 Anisocytosis 1+ 07/09/21 05:53 Microcytosis Not Reportable 07/09/21 05:53 Macrocytosis Not Reportable 07/09/21 05:53 Spherocytes Not Reportable 07/09/21 05:53 Pappenheimer Bodies Not Reportable 07/09/21 05:53 Sickle Cells Not Reportable 07/09/21 05:53 Target Cells Not Reportable 07/09/21 05:53 Tear Drop Cells Not Reportable 07/09/21 05:53 Ovalocytes Not Reportable 07/09/21 05:53 Helmet Cells Not Reportable 07/09/21 05:53 [place] Bodies Not Reportable 07/09/21 05:53 [place] Rings Not Reportable 07/09/21 05:53 [place] Cells Not Reportable 07/09/21 05:53 Bite Cells Not Reportable 07/09/21 05:53 Crenated Cell Not Reportable 07/09/21 05:53 Elliptocytes Not Reportable 07/09/21 05:53 Acanthocytes (Spur) Not Reportable 07/09/21 05:53 Rouleaux Not Reportable 07/09/21 05:53 Hemoglobin C Crystals Not Reportable 07/09/21 05:53 Schistocytes Not Reportable 07/09/21 05:53 Malaria parasites Not Reportable 07/09/21 05:53 Geovanni Bodies Not Reportable 07/09/21 05:53 Hem Pathologist Commnt No 07/09/21 05:53 PT 14.7 Sec. (12.2-14.9) 06/29/21 15:15 INR 1.04 (0.87-1.13) 06/29/21 15:15 APTT 29.3 Sec. (24.2-36.6) 06/29/21 15:15 Sodium 134 mmol/L (137-145) L 07/12/21 04:21 Potassium 3.6 mmol/L (3.6-5.0) 07/12/21 04:21 Chloride 97.7 mmol/L (98-107) L 07/12/21 04:21 Carbon Dioxide 26 mmol/L (22-30) 07/12/21 04:21 Anion Gap 14 mmol/L 07/12/21 04:21 BUN 5 mg/dL (7-17) L 07/12/21 04:21 Creatinine 0.5 mg/dL (0.6-1.2) L 07/12/21 04:21 Estimated GFR > 60 ml/min 07/12/21 04:21 BUN/Creatinine Ratio 10 % 07/12/21 04:21 Glucose 104 mg/dL (65-100) H 07/12/21 04:21 POC Glucose 116 mg/dL (70-105) H 07/12/21 11:09 Lactic Acid 1.20 mmol/L (0.7-2.0) 07/02/21 05:05 Calcium 7.8 mg/dL (8.4-10.2) L 07/12/21 04:21 Phosphorus 3.70 mg/dL (2.5-4.5) 07/08/21 06:45 Magnesium 1.70 mg/dL (1.7-2.3) 07/08/21 06:45 Total Bilirubin 0.30 mg/dL (0.1-1.2) 07/01/21 06:00 AST 262 units/L (5-40) H 07/01/21 06:00 ALT 224 units/L (7-56) H 07/01/21 06:00 Alkaline Phosphatase 94 units/L (35-129) 07/01/21 06:00 Total Protein 4.4 g/dL (6.3-8.2) L 07/01/21 06:00 Albumin 1.3 g/dL (3.9-5) L 07/01/21 06:00 Albumin/Globulin Ratio 0.4 % 07/01/21 06:00 Lipase 9 units/L (13-60) L 06/29/21 12:59 Procalcitonin 0.85 ng/mL (<0.15) 07/08/21 06:45 HCG, Qual Negative (Negative) 06/29/21 13:55 Urine Color Yellow (Yellow) 07/09/21 05:00 Urine Turbidity Clear (Clear) 07/09/21 05:00 Urine pH 5.0 (5.0-7.0) 07/09/21 05:00 Ur Specific [place] 1.019 (1.003-1.030) 07/09/21 05:00 Urine Protein <15 mg/dl mg/dL (Negative) 07/09/21 05:00 Urine Glucose (UA) Neg mg/dL (Negative) 07/09/21 05:00 Urine Ketones Neg mg/dL (Negative) 07/09/21 05:00 Urine Blood Sm (Negative) 07/09/21 05:00 Urine Nitrite Neg (Negative) 07/09/21 05:00 Urine Bilirubin Neg (Negative) 07/09/21 05:00 Urine Urobilinogen < 2.0 mg/dL (<2.0) 07/09/21 05:00 Ur Leukocyte Esterase Neg (Negative) 07/09/21 05:00 Urine WBC (Auto) 5.0 /HPF (0.0-6.0) 07/09/21 05:00 Urine RBC (Auto) 2.0 /HPF (0.0-6.0) 07/09/21 05:00 U Epithel Cells (Auto) 4.0 /HPF (0-13.0) 07/09/21 05:00 Urine Bacteria (Auto) 1+ /HPF (Negative) 06/30/21 04:37 Urine Creatinine < 4.2 mg/dL (0.1-20.0) 06/30/21 15:36 Urine Sodium 25 mmol/L 06/30/21 15:36 Coronavirus (PCR) Negative (Negative) 06/30/21 Unknown Blood Type O POSITIVE 07/04/21 12:54 Antibody Screen Negative 07/04/21 12:54 Crossmatch See Detail 07/04/21 12:54 [place]/IV: Voiding Method External Female Catheter Active Medications - Current Medications Current Medications: Generic Name Dose Route Start Last Admin Trade Name Freq PRN Reason Stop Dose Admin Acetaminophen 650 mg 06/29/21 20:01 Acetaminophen 650 Mg Rect Supp [place] Q4H PRN Pain MILD(1-3)/Fever >100.5/PAYNE Piperacillin Sod/Tazobactam Sod 4.5 gm in 100 mls @ 200 mls/hr 07/07/21 16:00 07/12/21 08:25 Zosyn/Ns 4.5gm/100ml IV 07/14/21 16:29 200 mls/hr Q8H SOILA Administration Protocol Ondansetron HCl 4 mg 06/29/21 20:01 Ondansetron 4 Mg/2 Ml Inj IV Q8H PRN Nausea And Vomiting Oxycodone/Acetaminophen 2 tab 07/09/21 16:11 07/12/21 11:26 Oxycodone /Acetaminophen 5-325mg Tab PO 2 tab Q6H PRN Administration Pain, Moderate (4-6) Sodium Chloride 10 ml 06/29/21 22:00 07/12/21 11:26 Sodium Chloride 0.9% 10 Ml Flush Syringe IV 10 ml BID SOILA Administration Sodium Chloride 10 ml 06/29/21 20:01 07/09/21 04:22 Sodium Chloride 0.9% 10 Ml Flush Syringe IV 10 ml PRN PRN Administration LINE FLUSH Sodium Hypochlorite 1 applic 06/30/21 17:00 07/12/21 05:45 Sodium Hypochlorite, Dakin's Full Strength (0.5%) 473 Ml Topical Soln TP 1 applicatio Q12H SOILA Administration Nutrition/Malnutrition Assess - Dietary Evaluation Nutrition/Malnutrition Findings: Nutrition Notes Start: 06/30/21 15:52 Freq: Status: Active Protocol: Document 07/08/21 16:47 JORGE (Rec: 07/08/21 17:08 JORGE [id number]) Nutrition Notes Initial or Follow up Reassessment Other Pertinent Diagnosis Surgery; R colectomy w/end ileostomy, hyponatremia, UTI. Current Diet Regular Diet (since L 07/08). Labs/Tests 07/08: Na 132, Cl 95.6, BUN 5, Crea 0.4, Glu 101, Ca 7.5. Pertinent Medications 07/08: Nutritionally unremarkable. Height 5 ft 2 in Weight 102.6 kg [place] Body Weight (kg) 50.00 BMI 41.3 Weight Status Morbidly Obese Subjective/Other Information RD consult for routine F/U. Percent of energy/protein needs met: Prescribed Regular Diet provides for energy/protein needs (2,289 Kcal/89 g) during LOS. Burn Absent Trauma Absent GI Symptoms Other Food Allergy No Skin Integrity/Comment Surgical wound. Minimum of two criteria No #1 Nutrition Diagnosis No nutrition diagnosis at this time Comments: Pt has been advanced to Regular Diet. Is patient on ventilator? No Is Patient Ambulatory and/or Out of Bed Yes REE-([place]-ambulatory/OOB) [ 2111.525 NUTR.MSJOOB] Kcal/Kg value to use for calculation 22 Approximate Energy Requirements Using 2257 kcal/Kg Calculation Used for Recommendations Kcal/kg Additional Notes Protein: 1.2-1.5 g/JKg; 60-75 g/day (from IBW+Surgery). Fluids 1 ml/Kcal, or as per MD . Nutrition Intervention Change Diet Order: Continue Regular Diet. Goal #1 Maintain body weight within +/ -3% of current BWt during LOS. Goal #2 Reach and maintain acceptable chemistry lab values during LOS. Follow-Up By: 07/15/21 Additional Comments Continue monitoring food tolerance, %PO intake of meals , Hydration and BM.
[2021-07-13] MEDS: SODIUM HYPOCHLORITE, DAKIN'S FULL STRENGTH (0.5%) 473 ML TOPICAL SOLN TP SCH ×2 (03:35→07:35)
[2021-07-13] MEDS: oxyCODONE /ACETAMINOPHEN 5-325MG TAB PO PRN ×2 (06:15→12:13)
[2021-07-13 06:35] LABS: Hematocrit 24.4 % (30.3-42.9); Hemoglobin 8.5 gm/dl (10.1-14.3); Mean Corpuscular HGB Conc 35 % (30-34); Mean Corpuscular Volume 91 fl (79-97); Platelet Count 588 K/mm3 (140-440); Red Blood Count 2.68 M/mm3 (3.65-5.03)
[2021-07-13] MEDS: PIPERACIL/TAZOBACTA 4.5/NS 100 4.5 GM/100 ML VIAL IV SCH (08:15)
--- NOTE | 2021-07-13 09:03 | Discharge Summary ---
Providers - Providers Date of Admission: 06/29/21 20:01 Date of discharge: 07/13/21 Attending physician: JEAN CARLOS COULTER MD 06/29/21 14:53 Consult to Physician [CONS] Urgent Comment: Consulting Provider: ANUP RODRIGUEZ Physician Instructions: Reason For Exam: gut 06/30/21 07:00 Consult to Physician [CONS] Routine Comment: spoke to xavier/Lillian Consulting Provider: TREY BRYAN Physician Instructions: Reason For Exam: sepsis/abdominal perforation 07/03/21 15:32 Midline [Consult to PICC Line RN] [CONS] Routine Reason For Exam: Needs a midline. Type Line:: Midline 07/07/21 12:50 Occupational Therapy Evaluate and Treat [CONS] Routine Comment: Reason For Exam: Deconditioning Physical Therapy Evaluation and Treat [CONS] Routine Comment: Reason For Exam: Deconditioning Primary care physician: GLOVE FINISHER Hospitalization Condition: Critical Disposition: 01 HOME / SELF CARE / HOMELESS Exam - Constitutional Vitals: Temp Pulse Resp BP Pulse Ox 98.4 F 92 H 16 116/79 96 07/13/21 03:10 07/13/21 03:10 07/13/21 03:10 07/13/21 03:10 07/13/21 03:10 Plan Care Plan Goals: Follow up with your primary care physician. Follow up in Surgery clinic in 2 weeks. Please call the number provided to schedule an appointment. Follow up with: PRIMARY MD JAQUELIN [Primary Care Provider] - 3-5 Days ANUP RODRIGUEZ MD [Staff Physician] - 14 Days Prescriptions: Sodium Hypochlorite [Dakin's Full Strength] 1 applic TP Q12H 30 Days #1 bottle oxyCODONE /ACETAMINOPHEN [Percocet 5/325 mg] 2 tab PO Q6H PRN 3 Days #24 tablet PRN Reason: Pain, Moderate (4-6)
[2021-07-13 09:20] VITALS: BP 138/77
== END 2021-07-13 17:45 | disposition home or self-care (01) | DRG 853 ==
LOC: ED 11:57 → IMCU 20:01 → CC1 07-02 12:37 → IMCU 07-02 12:49 → 4A 07-05 16:28
PROVIDERS: ADMIT Internal Medicine; ATTEND Student in an Organized Health Care Education/Training Program
PROC: 0DBU0ZZ Excision of Omentum, Open Approach (ICD-10-PCS; principal; 2021-06-29)
PROC: 0D1B0Z4 Bypass Ileum to Cutaneous, Open Approach (ICD-10-PCS; 2021-06-29)
PROC: 0DBF0ZZ Excision of Right Large Intestine, Open Approach (ICD-10-PCS; 2021-06-29)
PROC: 30233N1 Transfusion of Nonautologous Red Blood Cells into Peripheral Vein, Percutaneous Approach (ICD-10-PCS; 2021-07-04)
DX: A41.51 Sepsis due to Escherichia coli [E. coli] (principal); K65.9 Peritonitis, unspecified; N17.0 Acute kidney failure with tubular necrosis; N30.00 Acute cystitis without hematuria; E44.0 Moderate protein-calorie malnutrition; D62 Acute posthemorrhagic anemia; E87.0 Hyperosmolality and hypernatremia; F17.200 Nicotine dependence, unspecified, uncomplicated; E87.6 Hypokalemia; E83.51 Hypocalcemia; Z68.38 Body mass index [BMI] 38.0-38.9, adult; D75.838 Other thrombocytosis; F19.10 Other psychoactive substance abuse, uncomplicated; Z20.822 Contact with and (suspected) exposure to COVID-19
CPT/HCPCS: 36415; 71045; 74018; 74176; 74177; 80048; 80053; 81001; 82140; 82570; 82962; 83690; 83735; 84100; 84145; 84300; 84703; 85007; 85014; 85018; 85025; 85027; 85610; 85730; 86850; 86900; 86901; 86920; 87040; 87075; 87076; 87116; 87186; 88305; 88307; 94760; G0378; J0330; J0610; J0696; J1170; J2185; J2270; J2370; J2405; J2543; J2704; J2710; J3370; J3475; J3480; J7030; J7040; J7042; J7070; J7120; P9016; Q9967; U0003

== ENCOUNTER 2021-07-15 04:34 | Inpatient (IN) | payer SELFPAY ==
[2021-07-15] MEDS ORDERED: ALBUTEROL 2.5 MG/3 ML NEBU IH PRN (05:11)
[2021-07-15] MEDS ORDERED: ONDANSETRON 4 MG/2 ML INJ IV ONE (05:13)
[2021-07-15] MEDS ORDERED: MORPHINE 4 MG/1 ML INJ IV ONE (05:13)
[2021-07-15] MEDS ORDERED: SODIUM CHLORIDE 0.9% 1000 ML 1,000 ML IV ONE ×2 (05:19)
--- NOTE | 2021-07-15 05:19 | Emergency Department Report ---
ED Abdominal Pain HPI - General Chief Complaint: Abdominal Pain PUI?: No Time Seen by Provider: 07/15/21 04:58 Source: EMS Mode of arrival: Stretcher Limitations: Physical Limitation - History of Present Illness Initial Comments: Chief complaint: Abdominal pain HPI: This is a 45-year-old female who is status post hemicolectomy and ileostomy 16 days ago on 06/29/2021. Initial diagnosis right colonic ischemic perforation. Patient was discharged on yesterday. She was evaluated at [facility] for abdominal pain. She states that she has 10 out of 10 pain which began after discharge from the hospital. She was accepted in transfer by my colleague Dr. Streeter ER to ER. CT abdomen pelvis read from outside hospital revealed 9.1 x 6.1 cm fluid collection near the anastomosis in the right hemiabdomen. According to documentation provided Zosyn was administered 2014. Complaint: abdominal pain -: Gradual, days(s) (one day) Location: diffuse Radiation: none Severity: severe Severity scale (0 -10): 10 Consistency: constant Improves With: nothing Worsens With: movement - Related Data Previous Rx's Medication Instructions Recorded Last Taken Type Sodium Hypochlorite [Dakin's Full 1 applic TP Q12H 30 Days #1 bottle 07/13/21 Unknown Rx Strength] oxyCODONE /ACETAMINOPHEN [Percocet 2 tab PO Q6H PRN 3 Days #24 tablet 07/13/21 Unknown Rx 5/325 mg] Allergies Allergy/AdvReac Type Severity Reaction Status Date / Time No Known Allergies Allergy Verified 06/29/21 14:00 ED Review of Systems ROS: Stated complaint: Other details as noted in HPI Comment: All other systems reviewed and negative Constitutional: malaise. denies: chills, fever Respiratory: denies: cough, shortness of breath Gastrointestinal: abdominal pain ED Past Medical Hx - Past Medical History Previous Medical History?: Yes Hx Hypertension: No Hx Heart Attack/AMI: No Hx Liver Disease: No Hx Renal Disease: Yes (ALEX) Hx Psychiatric Treatment: Yes Hx HIV: No Additional medical history: IrreguLar periods - Surgical History Past Surgical History?: Yes Hx Appendectomy: Yes Additional Surgical History: tubes tied. 2017, - Social History Smoking Status: Unknown if ever smoked Substance Use Type: None - Medications Home Medications: Home Medications Medication Instructions Recorded Confirmed Last Taken Type Sodium Hypochlorite [Dakin's Full 1 applic TP Q12H 30 Days #1 bottle 07/13/21 Unknown Rx Strength] oxyCODONE /ACETAMINOPHEN [Percocet 2 tab PO Q6H PRN 3 Days #24 tablet 07/13/21 Unknown Rx 5/325 mg] ED Physical Exam - General Limitations: Physical Limitation General appearance: alert, other (pale, ill-appearing) - Head Head exam: Present: atraumatic, normocephalic - Eye Eye exam: Present: normal appearance - ENT ENT exam: Present: mucous membranes moist - Neck Neck exam: Present: normal inspection - Respiratory Respiratory exam: Present: normal lung sounds bilaterally. Absent: respiratory distress, wheezes, rales, rhonchi - Cardiovascular Cardiovascular Exam: Present: regular rate, normal rhythm, normal heart sounds. Absent: systolic murmur, diastolic murmur, rubs, gallop - GI/Abdominal GI/Abdominal exam: Present: normal bowel sounds, other (Clean dry, central abdominal bandage, ostomy present) - Extremities Exam Extremities exam: Present: normal inspection - Neurological Exam Neurological exam: Present: alert, oriented X3 - Psychiatric Psychiatric exam: Present: normal mood, flat affect - Skin Skin exam: Present: warm, dry, intact, pallor. Absent: rash ED Course Vital Signs 07/15/21 05:04 Temperature 97.8 F Pulse Rate 89 Respiratory 22 Rate Blood Pressure 96/64 [Right] O2 Sat by Pulse 98 Oximetry ED Medical Decision Making - Medical Decision Making Clinical impression intra-abdominal abscess, Dr. Miranda consulted. Dr. Harris admitted patient to the ED Critical care attestation.: If time is entered above; I have spent that time in minutes in the direct care of this critically ill patient, excluding procedure time. ED Disposition Clinical Impression: Intra-abdominal abscess Disposition: ADMITTED INPATIENT Is pt being admited?: Yes Does the pt Need Aspirin: No Condition: Stable Instructions: Abdominal Pain (ED)
--- NOTE | 2021-07-15 05:22 | History and Physical Report ---
History of Present Illness Date of examination: 07/15/21 Date of admission: 07/15/21 Chief complaint: Abdominal pain Abdominal abscess History of present illness: This is a 45 years old female with history of psychiatric problem/drug abuse was brought to the emergency room from [facility] because of abdominal pain. Abdominal pain moderate in intensity constant does not radiate aching generalized started since yesterday. Patient also complained of abdominal pain but denies fever, nausea or vomiting. Patient is right colectomy with end ileostomy and omentectomy by Dr. Ruben Colón on 06/29/2021 CT scan of the abdomen done in other hospital shows postsurgical changes from previous bowel resection there is a 9.1 x 6.1 cm fluid collection near the a nastomosis in the right hemiabdomen extending to the inferior liver margin and gallbladder fossa concerning for abscess. There is pericholecystic fluid and AN area of hypoattenuation in the inferior margin of the liver which could be a developing abscess currently there is no drainable intrahepatic abscess. A few scattered foci of free air in the abdomen this could be related to the postsurgical changes although an anastomotic leak cannot be excluded. There is additional loculated fluid collection more inferiorly in the anterior pelvis surgical consult patient is recommended We will going to admit the patient we will put the patient on Zosyn 4.5 g IV every 8 hours and clindamycin 600 mg IV every [address] Ruben Colón for evaluation. All labs are pending Past History Past Medical History: other (Psychiatric problem, drug abuse irregular.) Past Surgical History: Other (Tube tied 2017) Social history: smoking, other (Methamphetamine) Medications and Allergies Allergies Allergy/AdvReac Type Severity Reaction Status Date / Time No Known Allergies Allergy Verified 06/29/21 14:00 Home Medications Medication Instructions Recorded Confirmed Last Taken Type Sodium Hypochlorite [Dakin's Full 1 applic TP Q12H 30 Days #1 bottle 07/13/21 Unknown Rx Strength] oxyCODONE /ACETAMINOPHEN [Percocet 2 tab PO Q6H PRN 3 Days #24 tablet 07/13/21 Unknown Rx 5/325 mg] Active Meds: Active Medications Acetaminophen (Acetaminophen 325 Mg Tab) 650 mg PO Q4H PRN PRN Reason: Pain MILD(1-3)/Fever >100.5/PAYNE Albuterol (Albuterol 2.5 Mg/3 Ml Nebu) 2.5 mg IH Q4HRT PRN PRN Reason: Shortness Of Breath Albuterol/Ipratropium (Ipratropium/Albuterol Sulfate 3 Ml Ampul.Neb) 1 ampul IH Q6HRT SOILA Famotidine (Famotidine 20 Mg/2 Ml Inj) 20 mg IV BID SOILA Heparin Sodium (Porcine) (Heparin 5,000 Unit/1 Ml Vial) 5,000 unit SUB-Q Q12HR SOILA Hydromorphone HCl (Hydromorphone 1 Mg/1 Ml Inj) 0.5 mg IV Q3H PRN PRN Reason: Pain , Severe (7-10) Dextrose/Sodium Chloride (D5/0.45ns) 1,000 mls @ 100 mls/hr IV DIRECT SOILA Piperacillin Sod/Tazobactam Sod (Zosyn/Ns 4.5gm/100ml) 4.5 gm in 100 mls @ 200 mls/hr IV Q8H SOILA; Protocol Metronidazole (Flagyl 500 Mg/100 Ml) 500 mg in 100 mls @ 100 mls/hr IV Q8H SOILA; Protocol Morphine Sulfate (Morphine 2 Mg/1 Ml Inj) 2 mg IV Q4H PRN PRN Reason: Pain, Moderate (4-6) Ondansetron HCl (Ondansetron 4 Mg/2 Ml Inj) 4 mg IV Q8H PRN PRN Reason: Nausea And Vomiting Sodium Chloride (Sodium Chloride 0.9% 10 Ml Flush Syringe) 10 ml IV BID [facility] Sodium Chloride (Sodium Chloride 0.9% 10 Ml Flush Syringe) 10 ml IV PRN PRN PRN Reason: LINE FLUSH Review of Systems All systems: negative Constitutional: weakness, poor appetite Gastrointestinal: abdominal pain Exam - Constitutional Vitals: Temp Pulse Resp BP Pulse Ox 97.8 F 89 22 96/64 98 07/15/21 05:04 07/15/21 05:04 07/15/21 05:04 07/15/21 05:04 07/15/21 05:04 General appearance: Present: mild distress, cachectic - EENT Eyes: Present: PERRL ENT: hearing intact, clear oral mucosa - Neck Neck: Present: supple, normal ROM - Respiratory Respiratory effort: normal Respiratory: bilateral: CTA - Cardiovascular Heart Sounds: Present: S1 & S2. Absent: rub, click - Extremities Extremities: pulses symmetrical, No edema Peripheral Pulses: within normal limits - Abdominal General gastrointestinal: Present: soft, tender, non-distended, hypoactive bowel sounds Female genitourinary: Present: normal - Integumentary Integumentary: Present: clear, warm, dry - Musculoskeletal Musculoskeletal: gait normal, strength equal bilaterally - Psychiatric Psychiatric: appropriate mood/affect, intact judgment & insight - Neurologic Neurologic: CNII-XII intact, moves all extremities Results - Labs CBC & Chem 7: 07/15/21 05:24 07/15/21 05:24 Assessment and Plan VTE prophylaxis?: Chemical Plan of care discussed with patient/family: Yes - Patient Problems (1) Abdominal abscess Current Visit: Yes Status: Acute Plan to address problem: Admit the patient to the medical telemetry. N.p.o. D5 half-normal saline at the rate of 100 cc/h. Zosyn 4.5 g IV every 8 hours. Metronidazole 500 mg IV every 8 hours. Pepcid 20 mg IV every 12 hours. Reconsult surgery for evaluation and treatment. Recheck CBC BMP in the morning (2) Peritonitis Current Visit: No Status: Acute Plan to address problem: N.p.o. D5 half-normal saline at the rate of 100 cc/h. Zosyn 4.5 g IV every 8 hours. Metronidazole 500 mg IV every 8 hours. Pepcid 20 mg IV every 12 hours. Reconsult surgery for evaluation and treatment. Recheck CBC BMP in the morning (3) H/O right hemicolectomy Current Visit: Yes Status: Acute Plan to address problem: We will consult surgery for evaluation. Continue the home medication (4) Malnutrition Current Visit: No Status: Acute Qualifiers: Protein-calorie malnutrition severity: moderate Plan to address problem: We will consult nutrition for evaluation of PPN or TPN. Recheck CBC BMP in the morning (5) DVT prophylaxis Current Visit: No Status: Acute Plan to address problem: Heparin 5000 units subcu every 8 hours for DVT prophylaxis. Pepcid 20 mg IV every 12 hours for GI prophylaxis. Patient is a full code
[2021-07-15 05:49] LABS: Basophils # (Auto) 0.1 K/mm3 (0.0-0.1); Eosinophils # (Auto) 0.3 K/mm3 (0.0-0.4); Eosinophils % (Auto) 3.5 % (0.0-4.3); Hematocrit 25.2 % (30.3-42.9); Hemoglobin 8.2 gm/dl (10.1-14.3); Lymphocytes # (Auto) 2.1 K/mm3 (1.2-5.4); Lymphocytes % (Auto) 25.2 % (13.4-35.0); Mean Corpuscular HGB Conc 33 % (30-34); Mean Corpuscular Volume 92 fl (79-97); Monocytes # (Auto) 0.8 K/mm3 (0.0-0.8); Monocytes % (Auto) 9.9 % (0.0-7.3); Platelet Count 737 K/mm3 (140-440); Red Blood Count 2.75 M/mm3 (3.65-5.03); Red Cell Distribution Width 14.7 % (13.2-15.2)
[2021-07-15 05:59] LABS: INR 1.03 (0.87-1.13)
[2021-07-15] MEDS ORDERED: metroNIDAZOLE/NS 500 MG/100 ML 500 MG/100 ML BAG IV SCH (06:00)
[2021-07-15] MEDS ORDERED: metroNIDAZOLE 500 MG TAB PO SCH (06:00)
[2021-07-15] MEDS ORDERED: CLINDAMYCIN 600 MG/50 mL 600 MG/50 ML BAG IV SCH (06:00)
[2021-07-15 06:08] LABS: Alanine Aminotransferase 10 units/L (7-56); Albumin 2.4 g/dL (3.9-5); Blood Urea Nitrogen 6 mg/dL (7-17); Calcium 8.6 mg/dL (8.4-10.2); Hemolysis Index 73
[2021-07-15 06:09] LABS: BUN/Creatinine Ratio 12
[2021-07-15] MEDS: PIPERACIL/TAZOBACTA 4.5/NS 100 4.5 GM/100 ML VIAL IV SCH ×3 (06:28→23:01)
[2021-07-15] MEDS: IPRATROPIUM/ALBUTEROL SULFATE 3 ML AMPUL.NEB IH SCH ×3 (08:56→21:44)
[2021-07-15] MEDS: HEPARIN 5,000 UNIT/1 ML VIAL SUB-Q SCH ×2 (10:34→21:18)
[2021-07-15] MEDS: FAMOTIDINE 20 MG/2 ML INJ IV SCH ×2 (10:35→21:17)
[2021-07-15] MEDS: MORPHINE 2 MG/1 ML INJ IV PRN ×2 (10:40→21:17)
--- NOTE | 2021-07-15 10:59 | Progress Note ---
Hospitalist Physical - Constitutional Vitals: Temp Pulse Resp BP Pulse Ox 97.8 F 90 16 101/61 100 07/15/21 05:04 07/15/21 08:55 07/15/21 08:55 07/15/21 08:55 07/15/21 08:55 General appearance: Present: mild distress, cachectic Results - Labs CBC & Chem 7: 07/15/21 05:24 07/15/21 05:24 Labs: Laboratory Last Values WBC 8.4 K/mm3 (4.5-11.0) 07/15/21 05:24 RBC 2.75 M/mm3 (3.65-5.03) L 07/15/21 05:24 Hgb 8.2 gm/dl (10.1-14.3) L 07/15/21 05:24 Hct 25.2 % (30.3-42.9) L 07/15/21 05:24 MCV 92 fl (79-97) 07/15/21 05:24 MCH 30 pg (28-32) 07/15/21 05:24 MCHC 33 % (30-34) 07/15/21 05:24 RDW 14.7 % (13.2-15.2) 07/15/21 05:24 Plt Count 737 K/mm3 (140-440) H 07/15/21 05:24 Lymph % (Auto) 25.2 % (13.4-35.0) 07/15/21 05:24 [place] % (Auto) 9.9 % (0.0-7.3) H 07/15/21 05:24 Eos % (Auto) 3.5 % (0.0-4.3) 07/15/21 05:24 Baso % (Auto) 1.0 % (0.0-1.8) 07/15/21 05:24 Lymph # (Auto) 2.1 K/mm3 (1.2-5.4) 07/15/21 05:24 [place] # (Auto) 0.8 K/mm3 (0.0-0.8) 07/15/21 05:24 Eos # (Auto) 0.3 K/mm3 (0.0-0.4) 07/15/21 05:24 Baso # (Auto) 0.1 K/mm3 (0.0-0.1) 07/15/21 05:24 Seg Neutrophils % 60.4 % (40.0-70.0) 07/15/21 05:24 Seg Neutrophils # 5.1 K/mm3 (1.8-7.7) 07/15/21 05:24 PT 14.6 Sec. (12.2-14.9) 07/15/21 05:24 INR 1.03 (0.87-1.13) 07/15/21 05:24 Sodium 133 mmol/L (137-145) L 07/15/21 05:24 Potassium 4.7 mmol/L (3.6-5.0) D 07/15/21 05:24 Chloride 99.9 mmol/L (98-107) 07/15/21 05:24 Carbon Dioxide 23 mmol/L (22-30) 07/15/21 05:24 Anion Gap 15 mmol/L 07/15/21 05:24 BUN 6 mg/dL (7-17) L 07/15/21 05:24 Creatinine 0.5 mg/dL (0.6-1.2) L 07/15/21 05:24 Estimated GFR > 60 ml/min 07/15/21 05:24 BUN/Creatinine Ratio 12 % 07/15/21 05:24 Glucose 98 mg/dL (65-100) 07/15/21 05:24 Calcium 8.6 mg/dL (8.4-10.2) 07/15/21 05:24 Total Bilirubin 0.30 mg/dL (0.1-1.2) 07/15/21 05:24 AST 19 units/L (5-40) 07/15/21 05:24 ALT 10 units/L (7-56) 07/15/21 05:24 Alkaline Phosphatase 238 units/L (35-129) H 07/15/21 05:24 Total Protein 6.8 g/dL (6.3-8.2) 07/15/21 05:24 Albumin 2.4 g/dL (3.9-5) L 07/15/21 05:24 Albumin/Globulin Ratio 0.5 % 07/15/21 05:24 Active Medications - Current Medications Current Medications: Generic Name Dose Route Start Last Admin Trade Name Freq PRN Reason Stop Dose Admin Acetaminophen 650 mg 07/15/21 05:11 Acetaminophen 325 Mg Tab PO Q4H PRN Pain MILD(1-3)/Fever >100.5/PAYNE Albuterol 2.5 mg 07/15/21 05:11 Albuterol 2.5 Mg/3 Ml Nebu IH Q4HRT PRN Shortness Of Breath Albuterol/Ipratropium 1 ampul 07/15/21 08:00 07/15/21 08:56 Ipratropium/Albuterol Sulfate 3 Ml Ampul.Neb IH Not Given Q6HRT SOILA Famotidine 20 mg 07/15/21 10:00 07/15/21 10:35 Famotidine 20 Mg/2 Ml Inj IV 20 mg BID SOILA Administration Heparin Sodium (Porcine) 5,000 unit 07/15/21 10:00 07/15/21 10:34 Heparin 5,000 Unit/1 Ml Vial SUB-Q 5,000 unit Q12HR SOILA Administration Hydromorphone HCl 0.5 mg 07/15/21 05:11 Hydromorphone 1 Mg/1 Ml Inj IV Q3H PRN Pain , Severe (7-10) Dextrose/Sodium Chloride 1,000 mls @ 100 mls/hr 07/15/21 06:00 D5/0.45ns IV DIRECT SOILA Piperacillin Sod/Tazobactam Sod 4.5 gm in 100 mls @ 200 mls/hr 07/15/21 06:00 07/15/21 06:28 Zosyn/Ns 4.5gm/100ml IV 200 mls/hr Q8H SOILA Administration Protocol Morphine Sulfate 2 mg 07/15/21 05:11 07/15/21 10:40 Morphine 2 Mg/1 Ml Inj IV 2 mg Q4H PRN Administration Pain, Moderate (4-6) Ondansetron HCl 4 mg 07/15/21 05:11 Ondansetron 4 Mg/2 Ml Inj IV Q8H PRN Nausea And Vomiting Sodium Chloride 10 ml 07/15/21 10:00 07/15/21 10:32 Sodium Chloride 0.9% 10 Ml Flush Syringe IV 10 ml BID SOILA Administration Sodium Chloride 10 ml 07/15/21 05:11 Sodium Chloride 0.9% 10 Ml Flush Syringe IV PRN PRN LINE FLUSH
--- NOTE | 2021-07-15 11:00 | Event Note ---
Date: 07/15/21 Patient seen and examined no acute distress at this time continue supportive care. Pain control will obtain ID consultation to further evaluate this fluid if abscess to ensure appropriate treatment patient with no fever or white count at this time. Surgery evaluation ongoing.
--- NOTE | 2021-07-15 13:19 | Consultation ---
History of Present Illness - Reason for Consult Consult date: 07/15/21 intra-abdominal abscess Requesting physician: PIA LINDSAY - History of Present Illness The patient is a 45-year-old female with substance abuse disorder was admitted with abdominal pain. She recently underwent right colectomy with end ileostomy on 06/29/2021. CT scan of the abdomen at an outside hospital showed postsurgical changes and a fluid collection near the anastomotic site hence she was transferred here. Infectious diseases was consulted for antibiotic recommendations. She is otherwise afebrile. Labs show anemia but no leukocytosis. She denies any antibiotic allergies. Review of Systems: As per HPI Past History Past Medical History: other (Psychiatric problem, drug abuse irregular.) Past Surgical History: Other (Tube tied 2017) Social history: smoking, other (Methamphetamine) Medications and Allergies Allergies Allergy/AdvReac Type Severity Reaction Status Date / Time No Known Allergies Allergy Verified 07/15/21 09:56 Home Medications Medication Instructions Recorded Confirmed Last Taken Type Sodium Hypochlorite [Dakin's Full 1 applic TP Q12H 30 Days #1 bottle 07/13/21 07/15/21 Unknown Rx Strength] oxyCODONE /ACETAMINOPHEN [Percocet 2 tab PO Q6H PRN 3 Days #24 tablet 07/13/21 07/15/21 07/14/21 Rx 5/325 mg] Active Meds: Active Medications Acetaminophen (Acetaminophen 325 Mg Tab) 650 mg PO Q4H PRN PRN Reason: Pain MILD(1-3)/Fever >100.5/PAYNE Albuterol (Albuterol 2.5 Mg/3 Ml Nebu) 2.5 mg IH Q4HRT PRN PRN Reason: Shortness Of Breath Albuterol/Ipratropium (Ipratropium/Albuterol Sulfate 3 Ml Ampul.Neb) 1 ampul IH Q6HRT [facility] Last Admin: 07/15/21 08:56 Dose: Not Given Documented by: Famotidine (Famotidine 20 Mg/2 Ml Inj) 20 mg IV BID [facility] Last Admin: 07/15/21 10:35 Dose: 20 mg Documented by: Heparin Sodium (Porcine) (Heparin 5,000 Unit/1 Ml Vial) 5,000 unit SUB-Q Q12HR [facility] Last Admin: 07/15/21 10:34 Dose: 5,000 unit Documented by: Hydromorphone HCl (Hydromorphone 1 Mg/1 Ml Inj) 0.5 mg IV Q3H PRN PRN Reason: Pain , Severe (7-10) Dextrose/Sodium Chloride (D5/0.45ns) 1,000 mls @ 100 mls/hr IV DIRECT SOILA Piperacillin Sod/Tazobactam Sod (Zosyn/Ns 4.5gm/100ml) 4.5 gm in 100 mls @ 200 mls/hr IV Q8H SOILA; Protocol Last Admin: 07/15/21 06:28 Dose: 200 mls/hr Documented by: Morphine Sulfate (Morphine 2 Mg/1 Ml Inj) 2 mg IV Q4H PRN PRN Reason: Pain, Moderate (4-6) Last Admin: 07/15/21 10:40 Dose: 2 mg Documented by: Ondansetron HCl (Ondansetron 4 Mg/2 Ml Inj) 4 mg IV Q8H PRN PRN Reason: Nausea And Vomiting Sodium Chloride (Sodium Chloride 0.9% 10 Ml Flush Syringe) 10 ml IV BID SOILA Last Admin: 07/15/21 10:32 Dose: 10 ml Documented by: Sodium Chloride (Sodium Chloride 0.9% 10 Ml Flush Syringe) 10 ml IV PRN PRN PRN Reason: LINE FLUSH Physical Examination - Physical Exam Narrative exam: Physical Exam: Constitutional: Alert, cooperative. No acute distress Head, Ears, Nose: Normocephalic, atraumatic. External ears, nose normal Eyes: Conjunctivae/corneas clear. No icterus. No ptosis. Neck: Supple, no meningeal signs Oral: dentition fair, no thrushardiovascular: S1, S2 + Respiratory: Good air entry, clear to auscultation bilaterally GI: Tender, dressings present, ileostomy present Musculoskeletal: No pedal edema, no cyanosis. Skin: No rash or abscess Hem/Lymphatic: No palpable cervical or supraclavicular nodes. No lymphangitis Psych: Mood ok. Affect normal Neurological: Awake, alert, oriented. No gross abnormality - Constitutional Vitals: Vital Signs Temp Pulse Resp BP Pulse Ox 97.8 F 90 16 101/61 100 07/15/21 05:04 07/15/21 08:55 07/15/21 08:55 07/15/21 08:55 07/15/21 08:55 Temperature -Last 24 Hours Temperature 97.8 F Results - Labs CBC & Chem 7: 07/15/21 05:24 07/15/21 05:24 Labs: Abnormal lab results 07/15/21 07/15/21 Range/Units 05:24 05:24 RBC 2.75 L (3.65-5.03) M/mm3 Hgb 8.2 L (10.1-14.3) gm/dl Hct 25.2 L (30.3-42.9) % Plt Count 737 H (140-440) K/mm3 [place] % (Auto) 9.9 H (0.0-7.3) % Sodium 133 L (137-145) mmol/L BUN 6 L (7-17) mg/dL Creatinine 0.5 L (0.6-1.2) mg/dL Alkaline Phosphatase 238 H (35-129) units/L Albumin 2.4 L (3.9-5) g/dL Assessment and Plan Cultures: None A/P: 45-year-old female with substance abuse disorder was admitted with abdominal pain. She recently underwent right colectomy with end ileostomy on 06/29/2021, now with: #Intra-abdominal abscess/fluid collection in the perianastomotic site following right colectomy with end ileostomy on 06/29/2021 #Reactive thrombocytosis #Substance abuse disorder Recs: IV Zosyn 4.5 g every 8 hours Follow-up surgical evaluation Chichi Hopson MD, FACP [facility] O: [phone] F: [phone]
--- NOTE | 2021-07-15 14:10 | Progress Note ---
Assessment and Plan - Patient Problems (1) Abdominal abscess Current Visit: Yes Status: Acute Plan to address problem: 1) CT abdomen and pelvis with IV and oral contrast 2) Follow ID recommendations 3) Will prob need percutaneous CT guided drainage. Subjective Date of service: 07/15/21 Patient Reports: Positive: no new complaints (Presented to [place] ER last night c/o abdominal pain. CTA revealed an intra-abd abscess. Transferred back to [facility].) Objective Vital Signs - 12hr 07/15/21 07/15/21 07/15/21 05:00 05:04 05:15 Temperature 97.8 F Pulse Rate 94 H 89 88 Respiratory 25 H 22 19 Rate Blood Pressure 96/64 106/69 Blood Pressure 96/64 [Right] O2 Sat by Pulse 98 98 100 Oximetry 07/15/21 07/15/21 07/15/21 05:30 05:46 06:00 Temperature Pulse Rate 91 H 91 H 88 Respiratory 21 19 18 Rate Blood Pressure 101/68 101/68 101/68 Blood Pressure [Right] O2 Sat by Pulse 100 100 Oximetry 07/15/21 07/15/21 07/15/21 06:15 06:30 06:45 Temperature Pulse Rate 88 86 90 Respiratory 18 19 18 Rate Blood Pressure 108/62 112/59 100/53 Blood Pressure [Right] O2 Sat by Pulse 97 100 100 Oximetry 07/15/21 08:55 Temperature Pulse Rate 90 Respiratory 16 Rate Blood Pressure Blood Pressure 101/61 [Right] O2 Sat by Pulse 100 Oximetry - Abdomen PM_[id number]_[id number] 4, PM_46_[id number] 6, PM_46_[id number] 8 Hernia: none - Labs 07/15/21 05:24 07/15/21 05:24 Diabetes panel 07/15/21 Range/Units 05:24 Sodium 133 L (137-145) mmol/L Potassium 4.7 D (3.6-5.0) mmol/L Chloride 99.9 (98-107) mmol/L Carbon Dioxide 23 (22-30) mmol/L BUN 6 L (7-17) mg/dL Creatinine 0.5 L (0.6-1.2) mg/dL Glucose 98 (65-100) mg/dL Calcium 8.6 (8.4-10.2) mg/dL AST 19 (5-40) units/L ALT 10 (7-56) units/L Alkaline Phosphatase 238 H (35-129) units/L Total Protein 6.8 (6.3-8.2) g/dL Albumin 2.4 L (3.9-5) g/dL Calcium panel 07/15/21 Range/Units 05:24 Calcium 8.6 (8.4-10.2) mg/dL Albumin 2.4 L (3.9-5) g/dL Pituitary panel 07/15/21 Range/Units 05:24 Sodium 133 L (137-145) mmol/L Potassium 4.7 D (3.6-5.0) mmol/L Chloride 99.9 (98-107) mmol/L Carbon Dioxide 23 (22-30) mmol/L BUN 6 L (7-17) mg/dL Creatinine 0.5 L (0.6-1.2) mg/dL Glucose 98 (65-100) mg/dL Calcium 8.6 (8.4-10.2) mg/dL Adrenal panel 07/15/21 Range/Units 05:24 Sodium 133 L (137-145) mmol/L Potassium 4.7 D (3.6-5.0) mmol/L Chloride 99.9 (98-107) mmol/L Carbon Dioxide 23 (22-30) mmol/L BUN 6 L (7-17) mg/dL Creatinine 0.5 L (0.6-1.2) mg/dL Glucose 98 (65-100) mg/dL Calcium 8.6 (8.4-10.2) mg/dL Total Bilirubin 0.30 (0.1-1.2) mg/dL AST 19 (5-40) units/L ALT 10 (7-56) units/L Alkaline Phosphatase 238 H (35-129) units/L Total Protein 6.8 (6.3-8.2) g/dL Albumin 2.4 L (3.9-5) g/dL
[2021-07-15] MEDS: D5W/0.45% NACL 1,000 ML IV SCH (14:15)
--- NOTE | 2021-07-15 15:37 | Cat Scan Report ---
CT ABDOMEN AND PELVIS WITH CONTRAST HISTORY: Intra-abdominal abscess. COMPARISON: 07/06/2021 TECHNIQUE: Helical CT images of the abdomen and pelvis were obtained following administration of intr avenous contrast. Sagittal and coronal reformatted images were reviewed. All CT scans at this [facility] are performed using CT dose reduction for ALARA by means of automated exposure control. CONTRAST: 100 ml of intravenous contrast administered. FINDINGS: Abdomen/pelvis: An open ventral midline wound/incision is again noted with left lower quadrant ostom y. Stable right hemicolectomy changes. No evidence for bowel obstruction or focal inflammation. Fluid in the abdomen has decreased significantly since the previous exam. There are however 2 fluid collec tions in the abdomen. A fluid collection with mild peripheral enhancement in the right paracolic gutt er measures 8.6 x 4.1 x 1.5 cm. There is a smaller fluid collection containing trace gas in the pelvi s measures 5.3 x 1.4 x 2.2 cm. The liver, biliary system, pancreas, spleen, kidneys, adrenal glands, vascular structures, bladder an d uterus are unremarkable. Lungs/bones: Small layering pleural effusions and bibasilar atelectatic changes appear stable. IMPRESSION: Stable postsurgical changes as described. Fluid in the abdomen has decreased by approximately 50% since the previous exam. There are 2 small fl uid collections in the right paracolic gutter and pelvis as described which could represent developin g abscesses in the appropriate clinical presentation. Stable small pleural effusions and bibasilar atelectatic changes. Signer Name: Young Nieves Jr, MD Signed: 07/15/2021 3:33 PM Workstation Name: [id number]
[2021-07-15] MEDS: HYDROmorphone 1 MG/1 ML INJ IV PRN ×2 (19:56→23:07)
[2021-07-16] MEDS: D5W/0.45% NACL 1,000 ML IV SCH ×3 (00:34→18:39)
[2021-07-16] MEDS: HYDROmorphone 1 MG/1 ML INJ IV PRN ×4 (04:22→22:33)
[2021-07-16 06:05] LABS: Alanine Aminotransferase 6 units/L (7-56); Albumin 1.9 g/dL (3.9-5); Blood Urea Nitrogen 3 mg/dL (7-17); Calcium 7.7 mg/dL (8.4-10.2); Hemolysis Index 4
[2021-07-16 06:06] LABS: BUN/Creatinine Ratio 8
[2021-07-16 06:20] LABS: Basophils % (Auto) 0.5 % (0.0-1.8); Eosinophils # (Auto) 0.3 K/mm3 (0.0-0.4); Eosinophils % (Auto) 4.5 % (0.0-4.3); Hematocrit 25.4 % (30.3-42.9); Hemoglobin 7.8 gm/dl (10.1-14.3); Lymphocytes # (Auto) 1.8 K/mm3 (1.2-5.4); Lymphocytes % (Auto) 26.2 % (13.4-35.0); Mean Corpuscular HGB Conc 31 % (30-34); Mean Corpuscular Volume 93 fl (79-97); Monocytes # (Auto) 0.7 K/mm3 (0.0-0.8); Monocytes % (Auto) 10.3 % (0.0-7.3); Platelet Count 611 K/mm3 (140-440); Red Blood Count 2.72 M/mm3 (3.65-5.03); Red Cell Distribution Width 15.3 % (13.2-15.2)
[2021-07-16] MEDS: PIPERACIL/TAZOBACTA 4.5/NS 100 4.5 GM/100 ML VIAL IV SCH ×3 (06:31→22:28)
[2021-07-16] MEDS: IPRATROPIUM/ALBUTEROL SULFATE 3 ML AMPUL.NEB IH SCH ×4 (08:03→19:21)
[2021-07-16] MEDS: ONDANSETRON 4 MG/2 ML INJ IV PRN (08:53)
[2021-07-16] MEDS: FAMOTIDINE 20 MG/2 ML INJ IV SCH ×3 (08:53→22:27)
[2021-07-16] MEDS: HEPARIN 5,000 UNIT/1 ML VIAL SUB-Q SCH ×3 (08:53→22:27)
[2021-07-16] MEDS: MORPHINE 2 MG/1 ML INJ IV PRN ×2 (08:53→15:16)
[2021-07-16] MEDS: POTASSIUM CHLORIDE 10 MEQ 10 MEQ/100 ML BAG IV SCH ×2 (10:29→12:11)
--- NOTE | 2021-07-16 11:48 | Progress Note ---
Assessment and Plan - Patient Problems (1) Abdominal abscess Current Visit: Yes Status: Acute Plan to address problem: 1) Please consult IR for percutaneous drainage of possible intra-abdominal abscess. 2) CLD Subjective Date of service: 07/16/21 Patient Reports: Positive: no new complaints Objective Vital Signs - 12hr 07/16/21 07/16/21 07/16/21 08:37 10:00 10:07 Temperature 98.3 F Pulse Rate 84 84 Pulse Rate [ 86 Anterior Bilateral Throughout] Respiratory 20 Rate Respiratory 18 Rate [Anterior Bilateral Throughout] Blood Pressure 100/61 O2 Sat by Pulse 99 97 Oximetry - Abdomen PM_46_EXABD1 4, PM_46_EXABD1 6, PM_46_EXABD1 8 Hernia: none - Labs 07/16/21 04:13 07/16/21 04:13 Diabetes panel 07/16/21 Range/Units 04:13 Sodium 134 L (137-145) mmol/L Potassium 3.4 L D (3.6-5.0) mmol/L Chloride 100.7 (98-107) mmol/L Carbon Dioxide 21 L (22-30) mmol/L BUN 3 L (7-17) mg/dL Creatinine 0.4 L (0.6-1.2) mg/dL Glucose 111 H (65-100) mg/dL Calcium 7.7 L (8.4-10.2) mg/dL AST 9 (5-40) units/L ALT 6 L (7-56) units/L Alkaline Phosphatase 185 H (35-129) units/L Total Protein 6.3 (6.3-8.2) g/dL Albumin 1.9 L (3.9-5) g/dL Calcium panel 07/16/21 Range/Units 04:13 Calcium 7.7 L (8.4-10.2) mg/dL Albumin 1.9 L (3.9-5) g/dL Pituitary panel 07/16/21 Range/Units 04:13 Sodium 134 L (137-145) mmol/L Potassium 3.4 L D (3.6-5.0) mmol/L Chloride 100.7 (98-107) mmol/L Carbon Dioxide 21 L (22-30) mmol/L BUN 3 L (7-17) mg/dL Creatinine 0.4 L (0.6-1.2) mg/dL Glucose 111 H (65-100) mg/dL Calcium 7.7 L (8.4-10.2) mg/dL Adrenal panel 07/16/21 Range/Units 04:13 Sodium 134 L (137-145) mmol/L Potassium 3.4 L D (3.6-5.0) mmol/L Chloride 100.7 (98-107) mmol/L Carbon Dioxide 21 L (22-30) mmol/L BUN 3 L (7-17) mg/dL Creatinine 0.4 L (0.6-1.2) mg/dL Glucose 111 H (65-100) mg/dL Calcium 7.7 L (8.4-10.2) mg/dL Total Bilirubin 0.30 (0.1-1.2) mg/dL AST 9 (5-40) units/L ALT 6 L (7-56) units/L Alkaline Phosphatase 185 H (35-129) units/L Total Protein 6.3 (6.3-8.2) g/dL Albumin 1.9 L (3.9-5) g/dL - Imaging CT scan - abdomen: report reviewed CT scan - pelvis: report reviewed
[2021-07-16] MEDS ORDERED: FLU VACC QUAD 2021-22(6MOS UP)/PF 60 MCG/0.5 ML SYRINGE IM ONE (12:00)
--- NOTE | 2021-07-16 14:01 | Progress Note ---
Assessment and Plan Cultures: None A/P: 45-year-old female with substance abuse disorder was admitted with abdominal pain. She recently underwent right colectomy with end ileostomy on 06/29/2021, now with: #Intra-abdominal abscess/fluid collection in the perianastomotic site following right colectomy with end ileostomy on 06/29/2021 #Reactive thrombocytosis: due to above, improving. #Substance abuse disorder Recs: IV Zosyn 4.5 g every 8 hours Follow-up IR aspiration, please send cultures Chichi Hopson MD, FACP [facility] ([facility]) O: [phone] F: [phone] Subjective Date of service: 07/16/21 Interval history: No fever. No new complaints. Asking for ice chips. Objective - Exam Narrative Exam: Physical Exam: Constitutional: Alert, cooperative. No acute distress Head, Ears, Nose: Normocephalic, atraumatic. External ears, nose normal Eyes: Conjunctivae/corneas clear. No icterus. No ptosis. Neck: Supple, no meningeal signs Oral: dentition fair, no thrushardiovascular: S1, S2 + Respiratory: Good air entry, clear to auscultation bilaterally GI: large midline wound, dressings present, ileostomy present Musculoskeletal: No pedal edema, no cyanosis. Skin: No rash or abscess Hem/Lymphatic: No palpable cervical or supraclavicular nodes. No lymphangitis Psych: Mood ok. Affect normal Neurological: Awake, alert, oriented. No gross abnormality - Constitutional Vitals: Vital Signs Temp Pulse Resp BP Pulse Ox 98.3 F 95 H 20 131/71 98 07/16/21 11:49 07/16/21 11:49 07/16/21 11:49 07/16/21 11:49 07/16/21 11:49 Temperature -Last 24 Hours Temperature 98.3 F Temperature 98.3 F Temperature 98.7 F Temperature 97.6 F - Labs CBC & Chem 7: 07/16/21 04:13 07/16/21 04:13 Labs: Abnormal lab results 07/16/21 07/16/21 Range/Units 04:13 04:13 RBC 2.72 L (3.65-5.03) M/mm3 Hgb 7.8 L (10.1-14.3) gm/dl Hct 25.4 L (30.3-42.9) % RDW 15.3 H (13.2-15.2) % Plt Count 611 H (140-440) K/mm3 [place] % (Auto) 10.3 H (0.0-7.3) % Eos % (Auto) 4.5 H (0.0-4.3) % Sodium 134 L (137-145) mmol/L Potassium 3.4 L D (3.6-5.0) mmol/L Carbon Dioxide 21 L (22-30) mmol/L BUN 3 L (7-17) mg/dL Creatinine 0.4 L (0.6-1.2) mg/dL Glucose 111 H (65-100) mg/dL Calcium 7.7 L (8.4-10.2) mg/dL ALT 6 L (7-56) units/L Alkaline Phosphatase 185 H (35-129) units/L Albumin 1.9 L (3.9-5) g/dL
--- NOTE | 2021-07-16 15:55 | Progress Note ---
Assessment and Plan Assessment and plan: This is a 45 years old female with history of psychiatric problem/drug abuse was brought to the emergency room from [facility] because of abdominal pain. Abdominal pain moderate in intensity constant does not radiate aching generalized started since yesterday. Patient also complained of abdominal pain but denies fever, nausea or vomiting. Patient is right colectomy with end ileostomy and omentectomy by Dr. Ruben Colón on 06/29/2021 CT scan of the abdomen done in other hospital shows postsurgical changes from previous bowel resection there is a 9.1 x 6.1 cm fluid collection near the an astomosis in the right hemiabdomen extending to the inferior liver margin and gallbladder fossa concerning for abscess. There is pericholecystic fluid and AN area of hypoattenuation in the inferior margin of the liver which could be a developing abscess currently there is no drainable intrahepatic abscess. A few scattered foci of free air in the abdomen this could be related to the postsurgical changes although an anastomotic leak cannot be excluded. There is additional loculated fluid collection more inferiorly in the anterior pelvis surgical consult patient is recommended We will going to admit the patient we will put the patient on Zosyn 4.5 g IV every 8 hours and clindamycin 600 mg IV every [address] Ruben Colón for evaluation. All labs are pending 07/16: IR consulted, continue current medications, [employer] consult. Continue current medications and pain control. Replace potassium (1) Abdominal abscess Current Visit: Yes Status: Acute Plan to address problem: Admit the patient to the medical telemetry. N.p.o. D5 half-normal saline at the rate of 100 cc/h. Zosyn 4.5 g IV every 8 hours. Metronidazole 500 mg IV every 8 hours. Pepcid 20 mg IV every 12 hours. Reconsult surgery for evaluation and treatment. Recheck CBC BMP in the morning (2) Peritonitis Current Visit: No Status: Acute Plan to address problem: N.p.o. D5 half-normal saline at the rate of 100 cc/h. Zosyn 4.5 g IV every 8 hours. Metronidazole 500 mg IV every 8 hours. Pepcid 20 mg IV every 12 hours. Reconsult surgery for evaluation and treatment. Recheck CBC BMP in the morning (3) H/O right hemicolectomy Current Visit: Yes Status: Acute Plan to address problem: We will consult surgery for evaluation. Continue the home medication (4)Severe Protein Calorie Malnutrition Current Visit: No Status: Acute Qualifiers: Protein-calorie malnutrition severity: moderate Plan to address problem: We will consult nutrition for evaluation of PPN or TPN. Recheck CBC BMP in the morning (5) Metabolic Acidosis (6) Reactive Thrombocytosis (7) Hypokalemia (8) anemia of chronic disease (9) DVT prophylaxis Current Visit: No Status: Acute Plan to address problem: Heparin 5000 units subcu every 8 hours for DVT prophylaxis. Pepcid 20 mg IV every 12 hours for GI prophylaxis. Patient is a full code History Interval history: Patient seen and examined, Hospitalist Physical - Physical exam Narrative exam: General appearance: Present: No distress, cachectic - EENT Eyes: Present: PERRL ENT: hearing intact, clear oral mucosa - Neck Neck: Present: supple, normal ROM - Respiratory Respiratory effort: normal Respiratory: bilateral: CTA - Cardiovascular Heart Sounds: Present: S1 & S2. Absent: rub, click - Extremities Extremities: pulses symmetrical, No edema Peripheral Pulses: within normal limits - Abdominal General gastrointestinal: Present: soft, tender, non-distended, hypoactive bowel sounds, colostomy bag intact Female genitourinary: Present: normal - Integumentary Integumentary: Present: clear, warm, dry - Musculoskeletal Musculoskeletal: gait normal, strength equal bilaterally - Psychiatric Psychiatric: appropriate mood/affect, intact judgment & insight - Neurologic Neurologic: CNII-XII intact, moves all extremities - Constitutional Vitals: Temp Pulse Resp BP Pulse Ox 98.3 F 95 H 20 131/71 98 07/16/21 11:49 07/16/21 11:49 07/16/21 11:49 07/16/21 11:49 07/16/21 11:49 General appearance: Present: mild distress, cachectic Results - Labs CBC & Chem 7: 07/16/21 04:13 07/16/21 04:13 Labs: Laboratory Last Values WBC 6.8 K/mm3 (4.5-11.0) 07/16/21 04:13 RBC 2.72 M/mm3 (3.65-5.03) L 07/16/21 04:13 Hgb 7.8 gm/dl (10.1-14.3) L 07/16/21 04:13 Hct 25.4 % (30.3-42.9) L 07/16/21 04:13 MCV 93 fl (79-97) 07/16/21 04:13 MCH 29 pg (28-32) 07/16/21 04:13 MCHC 31 % (30-34) 07/16/21 04:13 RDW 15.3 % (13.2-15.2) H 07/16/21 04:13 Plt Count 611 K/mm3 (140-440) H 07/16/21 04:13 Lymph % (Auto) 26.2 % (13.4-35.0) 07/16/21 04:13 [place] % (Auto) 10.3 % (0.0-7.3) H 07/16/21 04:13 Eos % (Auto) 4.5 % (0.0-4.3) H 07/16/21 04:13 Baso % (Auto) 0.5 % (0.0-1.8) 07/16/21 04:13 Lymph # (Auto) 1.8 K/mm3 (1.2-5.4) 07/16/21 04:13 [place] # (Auto) 0.7 K/mm3 (0.0-0.8) 07/16/21 04:13 Eos # (Auto) 0.3 K/mm3 (0.0-0.4) 07/16/21 04:13 Baso # (Auto) 0.0 K/mm3 (0.0-0.1) 07/16/21 04:13 Seg Neutrophils % 58.5 % (40.0-70.0) 07/16/21 04:13 Seg Neutrophils # 4.0 K/mm3 (1.8-7.7) 07/16/21 04:13 PT 14.6 Sec. (12.2-14.9) 07/15/21 05:24 INR 1.03 (0.87-1.13) 07/15/21 05:24 Sodium 134 mmol/L (137-145) L 07/16/21 04:13 Potassium 3.4 mmol/L (3.6-5.0) L D 07/16/21 04:13 Chloride 100.7 mmol/L (98-107) 07/16/21 04:13 Carbon Dioxide 21 mmol/L (22-30) L 07/16/21 04:13 Anion Gap 16 mmol/L 07/16/21 04:13 BUN 3 mg/dL (7-17) L 07/16/21 04:13 Creatinine 0.4 mg/dL (0.6-1.2) L 07/16/21 04:13 Estimated GFR > 60 ml/min 07/16/21 04:13 BUN/Creatinine Ratio 8 % 07/16/21 04:13 Glucose 111 mg/dL (65-100) H 07/16/21 04:13 POC Glucose 81 mg/dL (70-105) 07/15/21 20:26 Calcium 7.7 mg/dL (8.4-10.2) L 07/16/21 04:13 Total Bilirubin 0.30 mg/dL (0.1-1.2) 07/16/21 04:13 AST 9 units/L (5-40) 07/16/21 04:13 ALT 6 units/L (7-56) L 07/16/21 04:13 Alkaline Phosphatase 185 units/L (35-129) H 07/16/21 04:13 Total Protein 6.3 g/dL (6.3-8.2) 07/16/21 04:13 Albumin 1.9 g/dL (3.9-5) L 07/16/21 04:13 Albumin/Globulin Ratio 0.4 % 07/16/21 04:13 Nasal Screen MRSA (PCR) Negative (Negative) 07/16/21 04:38 [place]/IV: Voiding Method External Female Catheter Active Medications - Current Medications Current Medications: Generic Name Dose Route Start Last Admin Trade Name Freq PRN Reason Stop Dose Admin Acetaminophen 650 mg 07/15/21 05:11 Acetaminophen 325 Mg Tab PO Q4H PRN Pain MILD(1-3)/Fever >100.5/PAYNE Albuterol 2.5 mg 07/15/21 05:11 Albuterol 2.5 Mg/3 Ml Nebu IH Q4HRT PRN Shortness Of Breath Albuterol/Ipratropium 1 ampul 07/15/21 08:00 07/16/21 10:12 Ipratropium/Albuterol Sulfate 3 Ml Ampul.Neb IH 1 ampul Q6HRT SOILA Administration Famotidine 20 mg 07/15/21 10:00 07/16/21 10:58 Famotidine 20 Mg/2 Ml Inj IV Not Given BID [facility] Heparin Sodium (Porcine) 5,000 unit 07/15/21 10:00 07/16/21 10:58 Heparin 5,000 Unit/1 Ml Vial SUB-Q Not Given Q12HR SOILA Hydromorphone HCl 0.5 mg 07/15/21 05:11 07/16/21 12:33 Hydromorphone 1 Mg/1 Ml Inj IV 0.5 mg Q3H PRN Administration Pain , Severe (7-10) Dextrose/Sodium Chloride 1,000 mls @ 100 mls/hr 07/15/21 06:00 07/16/21 08:55 D5/0.45ns IV 100 mls/hr DIRECT SOILA Administration Piperacillin Sod/Tazobactam Sod 4.5 gm in 100 mls @ 200 mls/hr 07/15/21 06:00 07/16/21 06:31 Zosyn/Ns 4.5gm/100ml IV 200 mls/hr Q8H SOILA Administration Protocol Morphine Sulfate 2 mg 07/15/21 05:11 07/16/21 08:53 Morphine 2 Mg/1 Ml Inj IV 2 mg Q4H PRN Administration Pain, Moderate (4-6) Ondansetron HCl 4 mg 07/15/21 05:11 07/16/21 08:53 Ondansetron 4 Mg/2 Ml Inj IV 4 mg Q8H PRN Administration Nausea And Vomiting Sodium Chloride 10 ml 07/15/21 10:00 07/16/21 10:58 Sodium Chloride 0.9% 10 Ml Flush Syringe IV Not Given BID SOILA Sodium Chloride 10 ml 07/15/21 05:11 Sodium Chloride 0.9% 10 Ml Flush Syringe IV PRN PRN LINE FLUSH Nutrition/Malnutrition Assess - Dietary Evaluation Nutrition/Malnutrition Findings: Nutrition Notes Start: 07/15/21 12:08 Freq: Status: Active Protocol: Document 07/15/21 12:08 AMIE (Rec: 07/15/21 12:16 AMIE [email or web address]) Nutrition Notes Need for Assessment generated from: MD Order Initial or Follow up Assessment Other Pertinent Diagnosis Abdominal abscess, Peritonitis , Hx: (R) colectomy with end ileostomy Current Diet NPO Labs/Tests Na 133 Pertinent Medications D5 1/2NS at 100ml/hr (provides 408 kcal) Height 5 ft Weight 90.718 kg [place] Body Weight (kg) 45.45 BMI 39.0 Weight Status Obese Subjective/Other Information RD consulted for malnutrition. Pt in ED at this time. Per MD, pt may need PPN; has peripheral iv access. Burn Absent Trauma Absent GI Symptoms Other Minimum of two criteria No #1 Nutrition Diagnosis Altered GI function Etiology abdominal abscess, peritonitis , hx of (R) colectomy with end ileostomy As Evidenced by Signs and Symptoms pt NPO Is patient on ventilator? No Is Patient Ambulatory and/or Out of Bed No REE-([place]-confined to bed) 1771.644 Kcal/Kg value to use for calculation 14 Approximate Energy Requirements Using 1270 kcal/Kg Calculation Used for Recommendations Kcal/kg Additional Notes Pro needs 1-1.2g/kg adjBW: 68- 82g/day Fluid needs 1ml/kcal Nutrition Intervention Change Diet Order: Advance diet when medically feasible Nutrition Support: Start PPN at 100ml/hr if unable to advance diet Goal #1 Either advance diet or start PN to meet nutrient needs Anticipated Discharge Needs: Unable to identify at this time Follow-Up By: 07/17/21 Additional Comments F/U: diet advancement vs need for PPN
[2021-07-17] MEDS: IPRATROPIUM/ALBUTEROL SULFATE 3 ML AMPUL.NEB IH SCH ×4 (03:19→20:39)
[2021-07-17] MEDS: HYDROmorphone 1 MG/1 ML INJ IV PRN ×2 (03:31→18:43)
[2021-07-17] MEDS: D5W/0.45% NACL 1,000 ML IV SCH (03:34)
[2021-07-17] MEDS: PIPERACIL/TAZOBACTA 4.5/NS 100 4.5 GM/100 ML VIAL IV SCH ×3 (05:45→22:14)
[2021-07-17] MEDS: ONDANSETRON 4 MG/2 ML INJ IV PRN (09:01)
[2021-07-17] MEDS: FAMOTIDINE 20 MG/2 ML INJ IV SCH ×2 (09:01→22:15)
[2021-07-17] MEDS: MORPHINE 2 MG/1 ML INJ IV PRN (09:01)
--- NOTE | 2021-07-17 11:04 | Progress Note ---
Assessment and Plan Cultures: None A/P: 45-year-old female with substance abuse disorder was admitted with abdominal pain. She recently underwent right colectomy with end ileostomy on 06/29/2021, now with: #Intra-abdominal abscess/fluid collection in the perianastomotic site following right colectomy with end ileostomy on 06/29/2021 #Reactive thrombocytosis: due to above, improving. #Substance abuse disorder Recs: IV Zosyn 4.5 g every 8 hours Follow-up IR aspiration, please send cultures Chichi Hopson MD, FACP [facility] O: [phone] F: [phone] Subjective Date of service: 07/17/21 Interval history: No fever. Awaiting IR aspiration. Objective - Exam Narrative Exam: Physical Exam: Constitutional: Alert, cooperative. No acute distress Head, Ears, Nose: Normocephalic, atraumatic. External ears, nose normal Eyes: Conjunctivae/corneas clear. No icterus. No ptosis. Neck: Supple, no meningeal signs Oral: dentition fair, no thrushardiovascular: S1, S2 + Respiratory: Good air entry, clear to auscultation bilaterally GI: large midline wound, dressings present, ileostomy present Musculoskeletal: No pedal edema, no cyanosis. Skin: No rash or abscess Hem/Lymphatic: No palpable cervical or supraclavicular nodes. No lymphangitis Psych: Mood ok. Affect normal Neurological: Awake, alert, oriented. No gross abnormality - Constitutional Vitals: Vital Signs Temp Pulse Resp BP Pulse Ox 97.8 F 80 20 103/61 96 07/17/21 04:11 07/17/21 10:03 07/17/21 10:03 07/17/21 04:11 07/17/21 10:03 Temperature -Last 24 Hours Temperature 97.8 F Temperature 98.7 F Temperature 98.3 F Temperature 98.3 F - Labs CBC & Chem 7: 07/16/21 04:13 07/16/21 04:13
[2021-07-17] MEDS ORDERED: SODIUM CHLORIDE 0.9% 500 ML 500 ML ONE (11:16)
[2021-07-17] MEDS ORDERED: fentaNYL 100 MCG/2 ML INJ IV ONE (11:21)
[2021-07-17] MEDS ORDERED: MIDAZOLAM 5 MG/5 ML INJ MDV IV ONE (11:21)
--- NOTE | 2021-07-17 12:14 | Progress Note ---
Assessment and Plan Assessment and plan: This is a 45 years old female with history of psychiatric problem/drug abuse was brought to the emergency room from [facility] because of abdominal pain. Abdominal pain moderate in intensity constant does not radiate aching generalized started since yesterday. Patient also complained of abdominal pain but denies fever, nausea or vomiting. Patient is right colectomy with end ileostomy and omentectomy by Dr. Ruben Colón on 06/29/2021 CT scan of the abdomen done in other hospital shows postsurgical changes from previous bowel resection there is a 9.1 x 6.1 cm fluid collection near the an astomosis in the right hemiabdomen extending to the inferior liver margin and gallbladder fossa concerning for abscess. There is pericholecystic fluid and AN area of hypoattenuation in the inferior margin of the liver which could be a developing abscess currently there is no drainable intrahepatic abscess. A few scattered foci of free air in the abdomen this could be related to the postsurgical changes although an anastomotic leak cannot be excluded. There is additional loculated fluid collection more inferiorly in the anterior pelvis surgical consult patient is recommended We will going to admit the patient we will put the patient on Zosyn 4.5 g IV every 8 hours and clindamycin 600 mg IV every [address] Ruben Colón for evaluation. All labs are pending 07/16: IR consulted, continue current medications, Construction Sales Manager consult. Continue current medications and pain control. Replace potassium 07/17: Patient seen and examined clinically stable at this time no new com plaint. Continue supportive care. Awaiting IR intervention. Anticipate discharge in a.m. if cultures results are available (1) Abdominal abscess Current Visit: Yes Status: Acute Plan to address problem: Admit the patient to the medical telemetry. N.p.o. D5 half-normal saline at the rate of 100 cc/h. Zosyn 4.5 g IV every 8 hours. Metronidazole 500 mg IV every 8 hours. Pepcid 20 mg IV every 12 hours. Reconsult surgery for evaluation and treatment. Recheck CBC BMP in the morning (2) Peritonitis Current Visit: No Status: Acute Plan to address problem: N.p.o. D5 half-normal saline at the rate of 100 cc/h. Zosyn 4.5 g IV every 8 hours. Metronidazole 500 mg IV every 8 hours. Pepcid 20 mg IV every 12 hours. Reconsult surgery for evaluation and treatment. Recheck CBC BMP in the morning (3) H/O right hemicolectomy Current Visit: Yes Status: Acute Plan to address problem: We will consult surgery for evaluation. Continue the home medication (4)Severe Protein Calorie Malnutrition Current Visit: No Status: Acute Qualifiers: Protein-calorie malnutrition severity: moderate Plan to address problem: We will consult nutrition for evaluation of PPN or TPN. Recheck CBC BMP in the morning (5) Metabolic Acidosis (6) Reactive Thrombocytosis (7) Hypokalemia (8) anemia of chronic disease (9) DVT prophylaxis Current Visit: No Status: Acute Plan to address problem: Heparin 5000 units subcu every 8 hours for DVT prophylaxis. Pepcid 20 mg IV every 12 hours for GI prophylaxis. Patient is a full code History Interval history: Patient seen and examined, no new complaints at the time of my examination was awaiting IR procedure Hospitalist Physical - Physical exam Narrative exam: General appearance: Present: No distress, cachectic - EENT Eyes: Present: PERRL ENT: hearing intact, clear oral mucosa - Neck Neck: Present: supple, normal ROM - Respiratory Respiratory effort: normal Respiratory: bilateral: CTA - Cardiovascular Heart Sounds: Present: S1 & S2. Absent: rub, click - Extremities Extremities: pulses symmetrical, No edema Peripheral Pulses: within normal limits - Abdominal General gastrointestinal: Present: soft, tender, non-distended, hypoactive bowel sounds, colostomy bag intact Female genitourinary: Present: normal - Integumentary Integumentary: Present: clear, warm, dry - Musculoskeletal Musculoskeletal: gait normal, strength equal bilaterally - Psychiatric Psychiatric: appropriate mood/affect, intact judgment & insight - Neurologic Neurologic: CNII-XII intact, moves all extremities - Constitutional Vitals: Temp Pulse Resp BP Pulse Ox 97.8 F 80 20 103/61 96 07/17/21 04:11 07/17/21 10:03 07/17/21 10:03 07/17/21 04:11 07/17/21 10:03 General appearance: Present: mild distress, cachectic Results - Labs CBC & Chem 7: 07/16/21 04:13 07/16/21 04:13 Labs: Laboratory Last Values WBC 6.8 K/mm3 (4.5-11.0) 07/16/21 04:13 RBC 2.72 M/mm3 (3.65-5.03) L 07/16/21 04:13 Hgb 7.8 gm/dl (10.1-14.3) L 07/16/21 04:13 Hct 25.4 % (30.3-42.9) L 07/16/21 04:13 MCV 93 fl (79-97) 07/16/21 04:13 MCH 29 pg (28-32) 07/16/21 04:13 MCHC 31 % (30-34) 07/16/21 04:13 RDW 15.3 % (13.2-15.2) H 07/16/21 04:13 Plt Count 611 K/mm3 (140-440) H 07/16/21 04:13 Lymph % (Auto) 26.2 % (13.4-35.0) 07/16/21 04:13 [place] % (Auto) 10.3 % (0.0-7.3) H 07/16/21 04:13 Eos % (Auto) 4.5 % (0.0-4.3) H 07/16/21 04:13 Baso % (Auto) 0.5 % (0.0-1.8) 07/16/21 04:13 Lymph # (Auto) 1.8 K/mm3 (1.2-5.4) 07/16/21 04:13 [place] # (Auto) 0.7 K/mm3 (0.0-0.8) 07/16/21 04:13 Eos # (Auto) 0.3 K/mm3 (0.0-0.4) 07/16/21 04:13 Baso # (Auto) 0.0 K/mm3 (0.0-0.1) 07/16/21 04:13 Seg Neutrophils % 58.5 % (40.0-70.0) 07/16/21 04:13 Seg Neutrophils # 4.0 K/mm3 (1.8-7.7) 07/16/21 04:13 PT 14.6 Sec. (12.2-14.9) 07/15/21 05:24 INR 1.03 (0.87-1.13) 07/15/21 05:24 Sodium 134 mmol/L (137-145) L 07/16/21 04:13 Potassium 3.4 mmol/L (3.6-5.0) L D 07/16/21 04:13 Chloride 100.7 mmol/L (98-107) 07/16/21 04:13 Carbon Dioxide 21 mmol/L (22-30) L 07/16/21 04:13 Anion Gap 16 mmol/L 07/16/21 04:13 BUN 3 mg/dL (7-17) L 07/16/21 04:13 Creatinine 0.4 mg/dL (0.6-1.2) L 07/16/21 04:13 Estimated GFR > 60 ml/min 07/16/21 04:13 BUN/Creatinine Ratio 8 % 07/16/21 04:13 Glucose 111 mg/dL (65-100) H 07/16/21 04:13 POC Glucose 81 mg/dL (70-105) 07/15/21 20:26 Calcium 7.7 mg/dL (8.4-10.2) L 07/16/21 04:13 Total Bilirubin 0.30 mg/dL (0.1-1.2) 07/16/21 04:13 AST 9 units/L (5-40) 07/16/21 04:13 ALT 6 units/L (7-56) L 07/16/21 04:13 Alkaline Phosphatase 185 units/L (35-129) H 07/16/21 04:13 Total Protein 6.3 g/dL (6.3-8.2) 07/16/21 04:13 Albumin 1.9 g/dL (3.9-5) L 07/16/21 04:13 Albumin/Globulin Ratio 0.4 % 07/16/21 04:13 Nasal Screen MRSA (PCR) Negative (Negative) 07/16/21 04:38 [place]/IV: Voiding Method External Female Catheter Active Medications - Current Medications Current Medications: Generic Name Dose Route Start Last Admin Trade Name Freq PRN Reason Stop Dose Admin Acetaminophen 650 mg 07/15/21 05:11 Acetaminophen 325 Mg Tab PO Q4H PRN Pain MILD(1-3)/Fever >100.5/PAYNE Albuterol 2.5 mg 07/15/21 05:11 Albuterol 2.5 Mg/3 Ml Nebu IH Q4HRT PRN Shortness Of Breath Albuterol/Ipratropium 1 ampul 11/16/21 08:00 07/17/21 10:03 Ipratropium/Albuterol Sulfate 3 Ml Ampul.Neb IH 1 ampul Q6HRT SOILA Administration Famotidine 20 mg 07/15/21 10:00 07/17/21 09:01 Famotidine 20 Mg/2 Ml Inj IV 20 mg BID SOILA Administration Heparin Sodium (Porcine) 5,000 unit 07/15/21 10:00 07/16/21 22:27 Heparin 5,000 Unit/1 Ml Vial SUB-Q 5,000 unit Q12HR SOILA Administration Hydromorphone HCl 0.5 mg 07/15/21 05:11 07/17/21 03:31 Hydromorphone 1 Mg/1 Ml Inj IV 0.5 mg Q3H PRN Administration Pain , Severe (7-10) Dextrose/Sodium Chloride 1,000 mls @ 100 mls/hr 07/15/21 06:00 07/17/21 03:34 D5/0.45ns IV 100 mls/hr DIRECT SOILA Administration Piperacillin Sod/Tazobactam Sod 4.5 gm in 100 mls @ 200 mls/hr 07/15/21 06:00 07/17/21 05:45 Zosyn/Ns 4.5gm/100ml IV 200 mls/hr Q8H SOILA Administration Protocol Morphine Sulfate 2 mg 07/15/21 05:11 07/17/21 09:01 Morphine 2 Mg/1 Ml Inj IV 2 mg Q4H PRN Administration Pain, Moderate (4-6) Ondansetron HCl 4 mg 07/15/21 05:11 07/17/21 09:01 Ondansetron 4 Mg/2 Ml Inj IV 4 mg Q8H PRN Administration Nausea And Vomiting Sodium Chloride 10 ml 07/15/21 10:00 07/16/21 22:28 Sodium Chloride 0.9% 10 Ml Flush Syringe IV 10 ml BID SOILA Administration Sodium Chloride 10 ml 07/15/21 05:11 Sodium Chloride 0.9% 10 Ml Flush Syringe IV PRN PRN LINE FLUSH Nutrition/Malnutrition Assess - Dietary Evaluation Nutrition/Malnutrition Findings: Nutrition Notes Start: 07/15/21 12:08 Freq: Status: Active Protocol: Document 07/15/21 12:08 AMIE (Rec: 07/15/21 12:16 NHALL [id number]) Nutrition Notes Need for Assessment generated from: MD Order Initial or Follow up Assessment Other Pertinent Diagnosis Abdominal abscess, Peritonitis , Hx: (R) colectomy with end ileostomy Current Diet NPO Labs/Tests Na 133 Pertinent Medications D5 1/2NS at 100ml/hr (provides 408 kcal) Height 5 ft Weight 90.718 kg [place] Body Weight (kg) 45.45 BMI 39.0 Weight Status Obese Subjective/Other Information RD consulted for malnutrition. Pt in ED at this time. Per MD, pt may need PPN; has peripheral iv access. Burn Absent Trauma Absent GI Symptoms Other Minimum of two criteria No #1 Nutrition Diagnosis Altered GI function Etiology abdominal abscess, peritonitis , hx of (R) colectomy with end ileostomy As Evidenced by Signs and Symptoms pt NPO Is patient on ventilator? No Is Patient Ambulatory and/or Out of Bed No REE-([facility]-confined to bed) 1771.644 Kcal/Kg value to use for calculation 14 Approximate Energy Requirements Using 1270 kcal/Kg Calculation Used for Recommendations Kcal/kg Additional Notes Pro needs 1-1.2g/kg adjBW: 68- 82g/day Fluid needs 1ml/kcal Nutrition Intervention Change Diet Order: Advance diet when medically feasible Nutrition Support: Start PPN at 100ml/hr if unable to advance diet Goal #1 Either advance diet or start PN to meet nutrient needs Anticipated Discharge Needs: Unable to identify at this time Follow-Up By: 07/17/21 Additional Comments F/U: diet advancement vs need for PPN
--- NOTE | 2021-07-17 12:33 | Operative Report ---
Operative Report Operative Report: Exam: CT-guided placement of drainage catheter Clinical indication: Patient with a history of colectomy with fluid adjacent to the anastomosis in the right paracolic gutter Date: 07/17/2021 Procedure: Following an explanation of the risk, benefits and alternatives; written informed consent was obtained. The patient was brought to the CT suite and placed on the gantry. Initial canteen attendant images of the abdomen were performed and an appropriate access site was chosen along the right flank. The patient's right flank was prepped and draped in the usual sterile fashion. 1% lidocaine was used for anesthesia. Using intermittent CT guidance, a 15 cm 17-gauge trocar needle was advanced into the central aspect of the fluid collection. There is prompt return of yellowish serous fluid. No purulence is identified. A 0.035 guidewire was advanced through the needle and coiled within the fluid collection. The needle was removed and following serial dilation over the guidewire, an 8 Italian drainage catheter was advanced over the guidewire and positioned with the pigtail in the central aspect of the fluid collection. Imaging was obtained to document appropriate positioning. The guidewire was removed. There was return of an additional 5 mL of the serous yellow fluid with a hematogenous component. The catheter was securely fastened to the skin surface using 0 silk suture and placed to AFTAB bulb drainage. A sterile dressing was applied. The patient tolerated the procedure well. There were no immediate postprocedure complications. A minimal amount of sedation was utilized. Continuous cardiopulmonary monitoring was utilized. Impression: CT-guided placement of 8 Italian drainage catheter in right paracolic fluid collection adjacent to the anastomosis. There is prompt return of clear yellow serous fluid with slight hematogenous component which may represent degenerating hematoma. A sample was sent for laboratory analysis
[2021-07-17] MEDS: HEPARIN 5,000 UNIT/1 ML VIAL SUB-Q SCH ×2 (15:29→22:15)
--- NOTE | 2021-07-17 17:03 | Progress Note ---
Assessment and Plan - Patient Problems (1) Abdominal abscess Current Visit: Yes Status: Acute Plan to address problem: 1) Pt can be discharged ONCE social service arrangements are made. Pt has an abdominal wound and ileostomy. Arrangements for care of these MUST be made before discharge. She is also self pay and a meth addict. Subjective Date of service: 07/17/21 Patient Reports: Positive: no new complaints, other (Discussed with Dr. Pena re percutaneous drainage results.) Objective Vital Signs - 12hr 07/17/21 07/17/21 07/17/21 10:00 10:03 12:10 Pulse Rate 85 Pulse Rate [ 80 Anterior Bilateral Throughout] Pulse Rate [ Intra-Procedure ] Pulse Rate [ Post-Procedure] Pulse Rate [Pre 91 H -Procedure] Respiratory 28 H Rate Respiratory 20 Rate [Anterior Bilateral Throughout] Respiratory Rate [Intra- Procedure] Respiratory Rate [Post- Procedure] Respiratory 21 Rate [Pre- Procedure] Blood Pressure [Intra- Procedure] Blood Pressure [Post-Procedure ] Blood Pressure 106/52 [Pre-Procedure] O2 Sat by Pulse 96 Oximetry O2 Sat by Pulse Oximetry [ Intra-Procedure ] O2 Sat by Pulse Oximetry [Post -Procedure] O2 Sat by Pulse 100 Oximetry [Pre- Procedure] 07/17/21 07/17/21 07/17/21 12:20 12:25 12:30 Pulse Rate Pulse Rate [ Anterior Bilateral Throughout] Pulse Rate [ 94 H 91 H Intra-Procedure ] Pulse Rate [ 97 H Post-Procedure] Pulse Rate [Pre -Procedure] Respiratory Rate Respiratory Rate [Anterior Bilateral Throughout] Respiratory 33 H 28 H Rate [Intra- Procedure] Respiratory 22 Rate [Post- Procedure] Respiratory Rate [Pre- Procedure] Blood Pressure 110/56 108/59 [Intra- Procedure] Blood Pressure 117/65 [Post-Procedure ] Blood Pressure [Pre-Procedure] O2 Sat by Pulse Oximetry O2 Sat by Pulse 100 100 100 Oximetry [ Intra-Procedure ] O2 Sat by Pulse 100 Oximetry [Post -Procedure] O2 Sat by Pulse 100 100 100 Oximetry [Pre- Procedure] 07/17/21 12:40 Pulse Rate Pulse Rate [ Anterior Bilateral Throughout] Pulse Rate [ Intra-Procedure ] Pulse Rate [ 97 H Post-Procedure] Pulse Rate [Pre -Procedure] Respiratory Rate Respiratory Rate [Anterior Bilateral Throughout] Respiratory Rate [Intra- Procedure] Respiratory 21 Rate [Post- Procedure] Respiratory Rate [Pre- Procedure] Blood Pressure [Intra- Procedure] Blood Pressure 115/69 [Post-Procedure ] Blood Pressure [Pre-Procedure] O2 Sat by Pulse Oximetry O2 Sat by Pulse 100 Oximetry [ Intra-Procedure ] O2 Sat by Pulse 100 Oximetry [Post -Procedure] O2 Sat by Pulse 100 Oximetry [Pre- Procedure] - Abdomen [id number] 4, [id number] 6, [id number] 8 Hernia: none - Labs 07/16/21 04:13 07/16/21 04:13
[2021-07-18] MEDS: HYDROmorphone 1 MG/1 ML INJ IV PRN ×4 (01:51→18:47)
[2021-07-18] MEDS: PIPERACIL/TAZOBACTA 4.5/NS 100 4.5 GM/100 ML VIAL IV SCH (05:26)
[2021-07-18] MEDS: D5W/0.45% NACL 1,000 ML IV SCH (05:26)
[2021-07-18 05:36] LABS: Hematocrit 24.7 % (30.3-42.9); Hemoglobin 8.3 gm/dl (10.1-14.3); Mean Corpuscular HGB Conc 34 % (30-34); Mean Corpuscular Volume 91 fl (79-97); Platelet Count 527 K/mm3 (140-440); Red Blood Count 2.71 M/mm3 (3.65-5.03)
[2021-07-18 05:58] LABS: Blood Urea Nitrogen 2 mg/dL (7-17); Calcium 8.1 mg/dL (8.4-10.2); Hemolysis Index 75
[2021-07-18 05:59] LABS: BUN/Creatinine Ratio 4
--- NOTE | 2021-07-18 09:13 | Discharge Summary ---
Providers - Providers Date of Admission: 07/15/21 05:11 Attending physician: PIA LINDSAY MD 07/15/21 05:00 Consult to Physician [CONS] Stat Comment: Dr. Murry spoke with Dr. Miranda @ [phone] Consulting Provider: ANUP MIRANDA Physician Instructions: Reason For Exam: intraabdominal abscess 07/15/21 05:14 Consult to Dietitian/Nutrition [CONS] Routine Physician Instructions: Reason For Exam: Reason for Consult: Malnutrition 07/15/21 08:22 Consult to Wound/ET Nurse [CONS] Routine Reason For Exam: wound eval 07/15/21 08:23 Consult to Physician [CONS] Routine Comment: Consulting Provider: TREY BRYAN Physician Instructions: Reason For Exam: intraabdominal abscess post surgery Primary care physician: NOVELTIES SALES REPRESENTATIVE Hospitalization Reason for admission: Patient's abdominal symptoms have stabilized while in the department.No e Condition: Stable Hospital course: This is a 45 years old female with history of psychiatric problem/drug abuse was brought to the emergency room from [facility] because of abdominal pain. Abdominal pain moderate in intensity constant does not radiate aching generalized started since yesterday. Patient also complained of abdominal pain but denies fever, nausea or vomiting. Patient is right colectomy with end ileostomy and omentectomy by Dr. Ruben Colón on 06/29/2021 CT scan of the abdomen done in other hospital shows postsurgical changes from previous bowel resection there is a 9.1 x 6.1 cm fluid collection near the anastomosis in the right hemiabdomen extending to the inferior liver margin and gallbladder fossa concerning for abscess. There is pericholecystic fluid and AN area of hypoattenuation in the inferior margin of the liver which could be a developing abscess currently there is no drainable intrahepatic abscess. A few scattered foci of free air in the abdomen this could be related to the postsurgical changes although an anastomotic leak cannot be excluded. There is additional loculated fluid collection more inferiorly in the anterior pelvis surgical consult patient is recommended We will going to admit the patient we will put the patient on Zosyn 4.5 g IV every 8 hours and clindamycin 600 mg IV every [address] Ruben Colón for evaluation. All labs are pending 07/16: IR consulted, continue current medications, Snow Shoveler consult. Continue current medications and pain control. Replace potassium 07/17: Patient seen and examined clinically stable at this time no new complaint. Continue supportive care. Awaiting IR intervention. Anticipate discharge in a.m. if cultures results are available 07/18: Patient seen and examined tolerating clear liquid diet which is recommendation by the surgeon. shop worker has been consulted to assist with discharge planning and outpatient follow-up considering patient's financial status Per surgery Pt can be discharged ONCE social service arrangements are made. Pt has an abdominal wound and ileostomy. Arrangements for care of these MUST be made before discharge. She is also self pay and a meth addict. Per infectious disease No fever. Underwent IR drainage, felt to be seroma with slight hematogenous component, no organisms seen on Gram stain. No further antibiotics recommended (1) Abdominal abscess Current Visit: Yes Status: Acute Plan to address problem: Admit the patient to the medical telemetry. N.p.o. D5 half-normal saline at the rate of 100 cc/h. Zosyn 4.5 g IV every 8 hours. Metronidazole 500 mg IV every 8 hours. Pepcid 20 mg IV every 12 hours. Reconsult surgery for evaluat ion and treatment. Recheck CBC BMP in the morning (2) Peritonitis Current Visit: No Status: Acute Plan to address problem: N.p.o. D5 half-normal saline at the rate of 100 cc/h. Zosyn 4.5 g IV every 8 hours. Metronidazole 500 mg IV every 8 hours. Pepcid 20 mg IV every 12 hours. Reconsult surgery for evaluation and treatment. Recheck CBC BMP in the morning (3) H/O right hemicolectomy Current Visit: Yes Status: Acute Plan to address problem: We will consult surgery for evaluation. Continue the home medication (4)Severe Protein Calorie Malnutrition Current Visit: No Status: Acute Qualifiers: Protein-calorie malnutrition severity: moderate Plan to address problem: We will consult nutrition for evaluation of PPN or TPN. Recheck CBC BMP in the morning (5) Metabolic Acidosis (6) Reactive Thrombocytosis (7) Hypokalemia (8) anemia of chronic disease (9) open abdominal wound status post colostomy Disposition: HOME HEALTH CARE SERVICE Final Discharge Diagnosis (Prints w/discharge instructions): Abdominal abscess with presumed seroma and complex open abdominal wound with recent colostomy Time spent for discharge: 35-minute Core Measure Documentation - Palliative Care Palliative Care/ Comfort Measures: Not Applicable - Core Measures Any of the following diagnoses?: none Exam - Physical Exam Narrative exam: General appearance: Present: No distress, cachectic - EENT Eyes: Present: PERRL ENT: hearing intact, clear oral mucosa - Neck Neck: Present: supple, normal ROM - Respiratory Respiratory effort: normal Respiratory: bilateral: CTA - Cardiovascular Heart Sounds: Present: S1 & S2. Absent: rub, click - Extremities Extremities: pulses symmetrical, No edema Peripheral Pulses: within normal limits - Abdominal General gastrointestinal: Present: soft, dressing mid-abdomen tender, non- distended, hypoactive bowel sounds, colostomy bag intact Female genitourinary: Present: normal - Integumentary Integumentary: Present: clear, warm, dry - Musculoskeletal Musculoskeletal: gait normal, strength equal bilaterally - Psychiatric Psychiatric: appropriate mood/affect, intact judgment & insight - Neurologic Neurologic: CNII-XII intact, moves all extremities - Constitutional Vitals: Temp Pulse Resp BP Pulse Ox 99.3 F 88 18 153/89 97 07/18/21 07:40 07/18/21 07:40 07/18/21 07:40 07/18/21 07:40 07/18/21 07:40 Plan Activity: advance as tolerated, fall precautions Diet: other (Full liquid diet untill seen by surgeon in office) Wound: per your surgeon's advice, per wound nurse instructions Special Instructions: record daily weights, record daily BP diary, smoking cessation, home health RN Follow up with: PRIMARY CAREMD [Primary Care Provider] - 3-5 Days MELODIE BRANTLEY MD [Staff Physician] - 7 Days ANUP MIRANDA MD [Staff Physician] - 7 Days Prescriptions: Sodium Hypochlorite [Dakin's Full Strength] 1 applic TP Q12H 30 Days #1 bottle oxyCODONE /ACETAMINOPHEN [Percocet 5/325 mg] 2 tab PO Q6H PRN 3 Days #10 tablet PRN Reason: Pain, Moderate (4-6)
[2021-07-18] MEDS: ONDANSETRON 4 MG/2 ML INJ IV PRN (09:47)
[2021-07-18] MEDS: MORPHINE 2 MG/1 ML INJ IV PRN ×2 (09:48→21:40)
[2021-07-18] MEDS: HEPARIN 5,000 UNIT/1 ML VIAL SUB-Q SCH ×2 (09:48→21:40)
[2021-07-18] MEDS: FAMOTIDINE 20 MG/2 ML INJ IV SCH ×2 (09:48→21:39)
--- NOTE | 2021-07-18 09:58 | Progress Note ---
Assessment and Plan Cultures: 07/17/2021 IR drainage: No organisms on Gram stain A/P: 45-year-old female with substance abuse disorder was admitted with abdominal pain. She recently underwent right colectomy with end ileostomy on 06/29/2021, now with: #Intra-abdominal fluid collection in the perianastomotic site following right colectomy with end ileostomy on 06/29/2021: Underwent IR drainage, felt to be seroma with slight hematogenous component, no organisms seen on Gram stain. No fever, no leucocytosis. #Reactive thrombocytosis: due to above, improving. #Substance abuse disorder Recs: -Antibiotics discontinued Will sign off. Please call with questions. Chichi Hopson MD, FACP [facility] ([facility] O: [phone] F: [phone] Subjective Date of service: 07/18/21 Interval history: No fever. Underwent IR drainage, felt to be seroma with slight hematogenous component, no organisms seen on Gram stain. Objective - Exam Narrative Exam: Physical Exam: Constitutional: Alert, cooperative. No acute distress Head, Ears, Nose: Normocephalic, atraumatic. External ears, nose normal Eyes: Conjunctivae/corneas clear. No icterus. No ptosis. Neck: Supple, no meningeal signs Oral: dentition fair, no thrushardiovascular: S1, S2 + Respiratory: Good air entry, clear to auscultation bilaterally GI: large midline wound, dressings present, ileostomy present, drain + Musculoskeletal: No pedal edema, no cyanosis. Skin: No rash or abscess Hem/Lymphatic: No palpable cervical or supraclavicular nodes. No lymphangitis Psych: Mood ok. Affect normal Neurological: Awake, alert, oriented. No gross abnormality - Constitutional Vitals: Vital Signs Temp Pulse Resp BP Pulse Ox 99.3 F 88 18 153/89 97 07/18/21 07:40 07/18/21 07:40 07/18/21 07:40 07/18/21 07:40 07/18/21 07:40 Temperature -Last 24 Hours Temperature 99.3 F Temperature 98.9 F Temperature 98.1 F Temperature 98.0 F Temperature 98.1 F Temperature 98.5 F - Labs CBC & Chem 7: 07/18/21 04:15 07/18/21 04:15 Labs: Abnormal lab results 07/18/21 07/18/21 Range/Units 04:15 04:15 RBC 2.71 L (3.65-5.03) M/mm3 Hgb 8.3 L (10.1-14.3) gm/dl Hct 24.7 L (30.3-42.9) % Plt Count 527 H (140-440) K/mm3 Sodium 136 L (137-145) mmol/L BUN 2 L (7-17) mg/dL Creatinine 0.5 L (0.6-1.2) mg/dL Calcium 8.1 L (8.4-10.2) mg/dL
--- NOTE | 2021-07-18 13:43 | Cat Scan Report ---
PLEASE SEE THE OPERATIVE REPORT ON 07/17/21 @1230 MTDD
--- NOTE | 2021-07-18 14:42 | Progress Note ---
Assessment and Plan - Patient Problems (1) Abdominal abscess Current Visit: Yes Status: Acute Plan to address problem: 1) In light of the fascial dehiscence, I cannot close pt's wound as discussed with the patient case coordinator. Pt's family will need to come in and be educated re wound and ileostomy care. Pt can be discharged from my perspective once these issues are addressed. 2) F/u in [facility] in 2 weeks 3) Rx - none 4) No lifting or straining 5) Pt will need to be discharged with ileostomy bags and wafers. 6) Wound care should be bid wet to dry dressing changes with 0.5% Dakin's solution. Subjective Date of service: 07/18/21 Patient Reports: Positive: no new complaints Objective Vital Signs - 12hr 07/18/21 07/18/21 07/18/21 03:24 05:26 07:40 Temperature 98.9 F 99.3 F Pulse Rate 89 88 Respiratory 16 18 18 Rate Blood Pressure 120/71 153/89 O2 Sat by Pulse 89 97 Oximetry 07/18/21 10:00 Temperature Pulse Rate 88 Respiratory Rate Blood Pressure O2 Sat by Pulse Oximetry - Abdomen other (Midline wound examined. There is fascial dehiscence without bowel eviceration. The fascia is somewhat necrotic and needs add'l debridement via wet to dry dressing changes.) Hernia: none - Labs 07/18/21 04:15 07/18/21 04:15 Diabetes panel 07/18/21 Range/Units 04:15 Sodium 136 L (137-145) mmol/L Potassium 3.7 (3.6-5.0) mmol/L Chloride 103.3 (98-107) mmol/L Carbon Dioxide 22 (22-30) mmol/L BUN 2 L (7-17) mg/dL Creatinine 0.5 L (0.6-1.2) mg/dL Glucose 99 (65-100) mg/dL Calcium 8.1 L (8.4-10.2) mg/dL Calcium panel 07/18/21 Range/Units 04:15 Calcium 8.1 L (8.4-10.2) mg/dL Pituitary panel 07/18/21 Range/Units 04:15 Sodium 136 L (137-145) mmol/L Potassium 3.7 (3.6-5.0) mmol/L Chloride 103.3 (98-107) mmol/L Carbon Dioxide 22 (22-30) mmol/L BUN 2 L (7-17) mg/dL Creatinine 0.5 L (0.6-1.2) mg/dL Glucose 99 (65-100) mg/dL Calcium 8.1 L (8.4-10.2) mg/dL Adrenal panel 07/18/21 Range/Units 04:15 Sodium 136 L (137-145) mmol/L Potassium 3.7 (3.6-5.0) mmol/L Chloride 103.3 (98-107) mmol/L Carbon Dioxide 22 (22-30) mmol/L BUN 2 L (7-17) mg/dL Creatinine 0.5 L (0.6-1.2) mg/dL Glucose 99 (65-100) mg/dL Calcium 8.1 L (8.4-10.2) mg/dL
[2021-07-19] MEDS: HYDROmorphone 1 MG/1 ML INJ IV PRN ×5 (00:41→20:34)
[2021-07-19] MEDS: D5W/0.45% NACL 1,000 ML IV SCH ×2 (04:09→13:30)
[2021-07-19] MEDS: HEPARIN 5,000 UNIT/1 ML VIAL SUB-Q SCH ×2 (09:22→22:05)
[2021-07-19] MEDS: FAMOTIDINE 20 MG/2 ML INJ IV SCH ×2 (09:22→22:05)
--- NOTE | 2021-07-19 11:59 | Progress Note ---
Subjective Date of service: 07/19/21 Interval history: This is a 45 years old female with history of psychiatric problem/drug abuse was brought to the emergency room from [facility] because of abdominal pain. Abdominal pain moderate in intensity constant does not radiate aching generalized started since yesterday. Patient also complained of abdominal pain but denies fever, nausea or vomiting. Patient is right colectomy with end ileostomy and omentectomy by Dr. Ruben Colón on 06/29/2021 CT scan of the abdomen done in other hospital shows postsurgical changes from previous bowel resection there is a 9.1 x 6.1 cm fluid collection near the anastomosis in the right hemiabdomen extending to the inferior liver margin and gallbladder fossa concerning for abscess. There is pericholecystic fluid and AN area of hypoattenuation in the inferior margin of the liver which could be a developing abscess currently there is no drainable intrahepatic abscess. A few scattered foci of free air in the abdomen this could be related to the postsurgical changes although an anastomotic leak cannot be excluded. There is additional loculated fluid collection more inferiorly in the anterior pelvis surgical consult patient is recommended We will going to admit the patient we will put the patient on Zosyn 4.5 g IV every 8 hours and clindamycin 600 mg IV every [address] Ruben Colón for evaluation. All labs are pending 07/16: IR consulted, continue current medications, Graphic Specialist consult. Continue current medications and pain control. Replace potassium 07/17: Patient seen and examined clinically stable at this time no new complaint. Continue supportive care. Awaiting IR intervention. Anticipate discharge in a.m. if cultures results are available 07/18: Patient seen and examined tolerating clear liquid diet which is recommendation by the surgeon. housekeeper/custodian/laundry worker has been consulted to assist with discharge planning and outpatient follow-up considering patient's financial status 07/19 patient is awake and alert and complains of abdominal pain and states that it is 9/10 on the pain scale. She was discharged yesterday. Discussed with employment case manager and RN Apparently has issues with discharge as family is refusing to take care of her. Also discussed with general surgery Dr. Miranda Per surgery Pt can be discharged ONCE social service arrangements are made. Pt has an abdominal wound and ileostomy. Arrangements for care of these MUST be made befo re discharge. She is also self pay and a meth addict. Per infectious disease No fever. Underwent IR drainage, felt to be seroma with slight hematogenous component, no organisms seen on Gram stain. Assessment and plan History of abdominal abscess/peritonitis Status post right hemicolectomy Colostomy and has open wound Patient also has a drain and per discussion with general surgery patient can go home with the drain Needs outpatient follow-up with wound care in 2 weeks Wound cultures results reviewed Abdominal pain Secondary to #1 Pain control Normocytic anemia Multifactorial including chronic illness and recent surgery Moderate PCM Thrombocytosis - reactive Objective - Constitutional Vitals: Vital Signs - 12hr 07/19/21 07/19/21 07/19/21 00:20 02:00 03:32 Temperature 98.2 F 99.5 F Pulse Rate 94 H 91 H Respiratory 18 18 Rate Blood Pressure 117/75 111/72 O2 Sat by Pulse 94 95 92 Oximetry 07/19/21 08:02 Temperature 98.6 F Pulse Rate 89 Respiratory 20 Rate Blood Pressure 113/71 O2 Sat by Pulse 90 Oximetry General appearance: Present: no acute distress - EENT Eyes: PERRL, EOM intact ENT: hearing intact - Neck Neck: supple, normal ROM, no masses or JVD - Respiratory Respiratory effort: normal Respiratory: bilateral: CTA - Breasts Breasts: deferred - Cardiovascular Rhythm: regular Heart Sounds: Present: S1 & S2 Extremities: No edema - Gastrointestinal General gastrointestinal: Present: soft, tender (Appropriately tender) Rectal Exam: deferred - Genitourinary Female genitourinary: deferred - Neurologic Neurologic: no focal deficits - Psychiatric Psychiatric: appropriate mood/affect - Labs CBC & Chem 7: 07/18/21 04:15 07/18/21 04:15
[2021-07-19] MEDS: MORPHINE 2 MG/1 ML INJ IV PRN ×2 (17:32→23:23)
[2021-07-20] MEDS: D5W/0.45% NACL 1,000 ML IV SCH ×2 (02:27→18:14)
[2021-07-20] MEDS: HYDROmorphone 1 MG/1 ML INJ IV PRN ×6 (02:28→21:02)
[2021-07-20 06:07] LABS: Hematocrit 27.6 % (30.3-42.9); Hemoglobin 8.6 gm/dl (10.1-14.3); Mean Corpuscular HGB Conc 31 % (30-34); Mean Corpuscular Volume 90 fl (79-97); Platelet Count 501 K/mm3 (140-440); Red Blood Count 3.06 M/mm3 (3.65-5.03); Red Cell Distribution Width 14.7 % (13.2-15.2)
[2021-07-20 06:20] LABS: Blood Urea Nitrogen 3 mg/dL (7-17); Hemolysis Index 25
[2021-07-20 06:22] LABS: BUN/Creatinine Ratio 10
[2021-07-20] MEDS ORDERED: POTASSIUM CHLORIDE ER 20 MEQ TAB PO ONE (08:14)
[2021-07-20] MEDS: FAMOTIDINE 20 MG/2 ML INJ IV SCH ×2 (09:16→21:03)
[2021-07-20] MEDS: HEPARIN 5,000 UNIT/1 ML VIAL SUB-Q SCH ×2 (09:17→21:04)
--- NOTE | 2021-07-20 12:57 | Progress Note ---
Subjective Date of service: 07/20/21 Interval history: This is a 45 years old female with history of psychiatric problem/drug abuse was brought to the emergency room from [facility] because of abdominal pain. Abdominal pain moderate in intensity constant does not radiate aching generalized started since yesterday. Patient also complained of abdominal pain but denies fever, nausea or vomiting. Patient is right colectomy with end ileostomy and omentectomy by Dr. Ruben Colón on 06/29/2021 CT scan of the abdomen done in other hospital shows postsurgical changes from previous bowel resection there is a 9.1 x 6.1 cm fluid collection near the anastomosis in the right hemiabdomen extending to the inferior liver margin and gallbladder fossa concerning for abscess. There is pericholecystic fluid and AN area of hypoattenuation in the inferior margin of the liver which could be a developing abscess currently there is no drainable intrahepatic abscess. A few scattered foci of free air in the abdomen this could be related to the postsurgical changes although an anastomotic leak cannot be excluded. There is additional loculated fluid collection more inferiorly in the anterior pelvis surgical consult patient is recommended We will going to admit the patient we will put the patient on Zosyn 4.5 g IV every 8 hours and clindamycin 600 mg IV every [address] Ruben Colón for evaluation. All labs are pending 07/16: IR consulted, continue current medications, Store Manager consult. Continue current medications and pain control. Replace potassium 07/17: Patient seen and examined clinically stable at this time no new complaint. Continue supportive care. Awaiting IR intervention. Anticipate discharge in a.m. if cultures results are available 07/18: Patient seen and examined tolerating clear liquid diet which is recommendation by the surgeon. merchandise worker has been consulted to assist with discharge planning and outpatient follow-up considering patient's financial status 07/19 patient is awake and alert and complains of abdominal pain and states that it is 9/10 on the pain scale. She was discharged yesterday. Discussed with supervisor case loading and RN Apparently has issues with discharge as family is refusing to take care of her. Also discussed with general surgery Dr. Miranda 07/20 no acute events overnight. She is awake and alert. Complains of abdominal pain. Lab results reviewed. Discussed with patient's stepfather in person about discharge. Does not look like he is willing to take care of her. mining manager was present during my discussion Per surgery Pt can be discharged ONCE social service arrangements are made. Pt has an ab dominal wound and ileostomy. Arrangements for care of these MUST be made before discharge. She is also self pay and a meth addict. Per infectious disease No fever. Underwent IR drainage, felt to be seroma with slight hematogenous component, no organisms seen on Gram stain. Assessment and plan History of abdominal abscess/peritonitis Status post right hemicolectomy Colostomy and has open wound Patient also has a drain and per discussion with general surgery patient can go home with the drain Needs outpatient follow-up with wound care in 2 weeks Wound cultures results reviewed Abdominal pain Secondary to #1 Pain control Normocytic anemia Multifactorial including chronic illness and recent surgery Moderate PCM Thrombocytosis - reactive Objective - Constitutional Vitals: Vital Signs - 12hr 07/20/21 07/20/21 05:36 10:00 Temperature 99.5 F Pulse Rate 94 H Respiratory 18 16 Rate Blood Pressure 114/67 O2 Sat by Pulse 92 96 Oximetry General appearance: Present: no acute distress - EENT Eyes: PERRL, EOM intact ENT: hearing intact, clear oral mucosa - Neck Neck: supple, normal ROM - Respiratory Respiratory effort: normal Respiratory: bilateral: CTA - Cardiovascular Rhythm: regular Heart Sounds: Present: S1 & S2 Extremities: No edema - Gastrointestinal General gastrointestinal: Present: soft, tender (Appropriately tender, dressing over the mid abdomen and also has a drain and colostomy) Rectal Exam: deferred - Integumentary Integumentary: clear - Neurologic Neurologic: no focal deficits, moves all extremities - Psychiatric Psychiatric: appropriate mood/affect - Labs CBC & Chem 7: 07/20/21 04:24 07/20/21 04:24 Labs: Abnormal lab results 07/20/21 07/20/21 Range/Units 04:24 04:24 RBC 3.06 L (3.65-5.03) M/mm3 Hgb 8.6 L (10.1-14.3) gm/dl Hct 27.6 L (30.3-42.9) % Plt Count 501 H (140-440) K/mm3 Sodium 135 L (137-145) mmol/L Potassium 3.2 L (3.6-5.0) mmol/L BUN 3 L (7-17) mg/dL Creatinine 0.3 L (0.6-1.2) mg/dL Glucose 113 H (65-100) mg/dL Calcium 8.0 L (8.4-10.2) mg/dL
[2021-07-20] MEDS: SODIUM HYPOCHLORITE, DAKIN'S FULL STRENGTH (0.5%) 473 ML TOPICAL SOLN TP SCH ×2 (14:26→21:06)
[2021-07-21] MEDS: HYDROmorphone 1 MG/1 ML INJ IV PRN ×5 (00:21→20:49)
[2021-07-21] MEDS: D5W/0.45% NACL 1,000 ML IV SCH ×3 (03:33→20:50)
[2021-07-21 05:08] LABS: Blood Urea Nitrogen 5 mg/dL (7-17); Calcium 8.3 mg/dL (8.4-10.2); Hemolysis Index 25
[2021-07-21 05:28] LABS: BUN/Creatinine Ratio 13
[2021-07-21] MEDS: MORPHINE 2 MG/1 ML INJ IV PRN ×2 (10:06→17:21)
[2021-07-21] MEDS: FAMOTIDINE 20 MG/2 ML INJ IV SCH ×2 (10:12→22:40)
[2021-07-21] MEDS: SODIUM HYPOCHLORITE, DAKIN'S FULL STRENGTH (0.5%) 473 ML TOPICAL SOLN TP SCH (10:13)
[2021-07-21] MEDS: HEPARIN 5,000 UNIT/1 ML VIAL SUB-Q SCH ×2 (10:13→22:39)
--- NOTE | 2021-07-21 11:13 | Progress Note ---
Subjective Date of service: 07/21/21 Interval history: This is a 45 years old female with history of psychiatric problem/drug abuse was brought to the emergency room from [facility] because of abdominal pain. Abdominal pain moderate in intensity constant does not radiate aching generalized started since yesterday. Patient also complained of abdominal pain but denies fever, nausea or vomiting. Patient is right colectomy with end ileostomy and omentectomy by Dr. Ruben Colón on 06/29/2021 CT scan of the abdomen done in other hospital shows postsurgical changes from previous bowel resection there is a 9.1 x 6.1 cm fluid collection near the anastomosis in the right hemiabdomen extending to the inferior liver margin and gallbladder fossa concerning for abscess. There is pericholecystic fluid and AN area of hypoattenuation in the inferior margin of the liver which could be a developing abscess currently there is no drainable intrahepatic abscess. A few scattered foci of free air in the abdomen this could be related to the postsurgical changes although an anastomotic leak cannot be excluded. There is additional loculated fluid collection more inferiorly in the anterior pelvis surgical consult patient is recommended We will going to admit the patient we will put the patient on Zosyn 4.5 g IV every 8 hours and clindamycin 600 mg IV every [address] Ruben Colón for evaluation. All labs are pending 07/16: IR consulted, continue current medications, Transplant Rn consult. Continue current medications and pain control. Replace potassium 07/17: Patient seen and examined clinically stable at this time no new complaint. Continue supportive care. Awaiting IR intervention. Anticipate discharge in a.m. if cultures results are available 07/18: Patient seen and examined tolerating clear liquid diet which is recommendation by the surgeon. workers' compensation magistrate has been consulted to assist with discharge planning and outpatient follow-up considering patient's financial status 07/19 patient is awake and alert and complains of abdominal pain and states that it is 9/10 on the pain scale. She was discharged yesterday. Discussed with rn case manager and RN Apparently has issues with discharge as family is refusing to take care of her. Also discussed with general surgery Dr. Miranda 07/20 no acute events overnight. She is awake and alert. Complains of abdominal pain. Lab results reviewed. Discussed with patient's stepfather in person about discharge. Does not look like he is willing to take care of her. oracle database manager was present during my discussion 07/21 no acute events overnight. Complains of abdominal pain. Lab results reviewed. Waiting for disposition Per surgery Pt can be discharged ONCE social service arrangements are made. Pt has an abdominal wound and ileostomy. Arrangements for care of these MUST be made before discharge. She is also self pay and a meth addict. Per infectious disease No fever. Underwent IR drainage, felt to be seroma with slight hematogenous component, no organisms seen on Gram stain. Assessment and plan History of abdominal abscess/peritonitis Status post right hemicolectomy /Colostomy and has open wound Patient also has a drain and per discussion with general surgery patient can go home with the drain Needs outpatient follow-up with wound care and general surgery in 2 weeks Wound cultures results reviewed Abdominal pain Secondary to #1 Pain control Normocytic anemia Multifactorial including chronic illness and recent surgery Moderate PCM Thrombocytosis - reactive Hypokalemia-improved Objective - Constitutional Vitals: Vital Signs - 12hr 07/20/21 07/21/21 07/21/21 23:36 04:08 07:50 Temperature 99.7 F H 99.7 F H 98.4 F Pulse Rate 102 H 96 H 99 H Respiratory 17 17 18 Rate Blood Pressure 120/80 129/77 111/73 O2 Sat by Pulse 94 90 94 Oximetry General appearance: Present: no acute distress - EENT Eyes: PERRL, EOM intact ENT: hearing intact - Neck Neck: supple, normal ROM - Respiratory Respiratory effort: normal Respiratory: bilateral: CTA, diminished - Cardiovascular Rhythm: regular Heart Sounds: Present: S1 & S2 Extremities: No edema - Gastrointestinal General gastrointestinal: Present: soft, tender (Mid abdomen covered with dressing, has a colostomy and a drain) - Integumentary Integumentary: clear - Neurologic Neurologic: no focal deficits, moves all extremities - Psychiatric Psychiatric: appropriate mood/affect - Labs CBC & Chem 7: 07/20/21 04:24 07/21/21 03:49 Labs: Abnormal lab results 07/21/21 Range/Units 03:49 Sodium 135 L (137-145) mmol/L BUN 5 L (7-17) mg/dL Creatinine 0.4 L (0.6-1.2) mg/dL Glucose 110 H (65-100) mg/dL Calcium 8.3 L (8.4-10.2) mg/dL
[2021-07-22] MEDS: MORPHINE 2 MG/1 ML INJ IV PRN ×3 (00:17→17:30)
[2021-07-22] MEDS: SODIUM HYPOCHLORITE, DAKIN'S FULL STRENGTH (0.5%) 473 ML TOPICAL SOLN TP SCH ×3 (03:03→21:19)
[2021-07-22] MEDS: HYDROmorphone 1 MG/1 ML INJ IV PRN ×5 (03:04→21:19)
[2021-07-22] MEDS: HEPARIN 5,000 UNIT/1 ML VIAL SUB-Q SCH ×2 (09:53→21:17)
[2021-07-22] MEDS: FAMOTIDINE 20 MG/2 ML INJ IV SCH ×2 (09:53→21:16)
--- NOTE | 2021-07-22 12:11 | Consultation ---
History of Present Illness - Reason for Consult Consult date: 07/22/21 Reason for consult: MHE - History of Present Psychiatric Illness The patient was seen today. She is a 45y/o female patient who was brought from [facility] for abdominal pain.The patient is a/o x 3. During the evaluation, the patient states she is in pain. She says she was brought to the hospital because of her stomach. She says her friend initially took her to the hospital. She says "I was in pain real bad." She was unable to tell me what she was actually diagnosed with. She raises up her gown and shows me. She says, "its still open under the bandage." The patient denies ever seeing a psychiatrist of being on any psych medications. Although it is documented that she has some psych history. The patient says she is homeless and has been homeless for about 3 years. She says she "lives here and there." When asking if she had family, she says "yea my mom." I asked the patient why can't she live with her mom, she replies "she's real sick. I'm sick too, I can't take care of her." The patient says she has a history of methamphetamine use. She says she's been clear for about a year. She denies SI/HI or hallucinations of any kind. The patient says she was in the process of getting disability benefits started. PAST PSYCHIATRIC HISTORY: Diagnoses: Denies Suicide attempts or Self-harm behavior: Denies Prior psychiatric hospitalizations: Yes Substance Abuse history: Meth Previous psychiatric medications tried: Denies Outpatient treatment: Denies PAST MEDICAL HISTORY: None reported or document Family Psychiatric History: None reported or documented SOCIAL HISTORY Marital Status: Single Living Arrangements: Homeless Employment Status: Unemployed Access to guns/weapons: Denies Education: 10th grade History of Abuse: Denies Legal History: Denies REVIEW OF SYSTEMS Constitutional: Negative for weight loss ENT: Negative for stridor Respiratory: Negative for cough or hemoptysis All other systems reviewed and are negative MENTAL STATUS EXAMINATION General Appearance and Behavior: Age appropriate, good hygiene, wearing ap propriate clothes. calm, cooperative Cooperation: cooperative Psychomotor Behavior: Psychomotor normal Mood: hurting, not good Affect and affective range: congruent with stated mood Thought Process: goal directed Thought Content: None Speech: normal tone and pace Suicidal Ideation: Denies Homicidal Ideation: Denies Hallucinations: Denies Delusions: none elicited Impulse Control: Limited Insight and Judgment: Limited Memory: limited Attention: Attentive Orientation: alert and oriented Assessment and Plan (1) Mental Health Evaluation Treatment Plan Agree with case management consult. The patient will likely need placement No meds at this time Sitter: Per primary Medical: Per primary Disposition: Do not recommend acute psychiatric inpatient treatment. Will sign off. Thanks Case staffed with Dr. Whitehead Medications and Allergies Allergies Allergy/AdvReac Type Severity Reaction Status Date / Time No Known Allergies Allergy Verified 07/15/21 09:56 Home Medications Medication Instructions Recorded Confirmed Last Taken Type Sodium Hypochlorite [Dakin's Full 1 applic TP Q12H 30 Days #1 bottle 07/18/21 Unknown Rx Strength] oxyCODONE /ACETAMINOPHEN [Percocet 2 tab PO Q6H PRN 3 Days #10 tablet 07/18/21 Unknown Rx 5/325 mg] Active Meds: Active Medications Acetaminophen (Acetaminophen 325 Mg Tab) 650 mg PO Q4H PRN PRN Reason: Pain MILD(1-3)/Fever >100.5/PAYNE Albuterol (Albuterol 2.5 Mg/3 Ml Nebu) 2.5 mg IH Q4HRT PRN PRN Reason: Shortness Of Breath Famotidine (Famotidine 20 Mg/2 Ml Inj) 20 mg IV BID [facility] Last Admin: 07/22/21 09:53 Dose: 20 mg Documented by: Heparin Sodium (Porcine) (Heparin 5,000 Unit/1 Ml Vial) 5,000 unit SUB-Q Q12HR [facility] Last Admin: 07/22/21 09:53 Dose: 5,000 unit Documented by: Hydromorphone HCl (Hydromorphone 1 Mg/1 Ml Inj) 0.5 mg IV Q3H PRN PRN Reason: Pain , Severe (7-10) Last Admin: 07/22/21 06:35 Dose: 0.5 mg Documented by: Dextrose/Sodium Chloride (D5/0.45ns) 1,000 mls @ 100 mls/hr IV DIRECT [facility] Last Admin: 07/21/21 20:50 Dose: 100 mls/hr Documented by: Morphine Sulfate (Morphine 2 Mg/1 Ml Inj) 2 mg IV Q4H PRN PRN Reason: Pain, Moderate (4-6) Last Admin: 07/22/21 09:54 Dose: 2 mg Documented by: Ondansetron HCl (Ondansetron 4 Mg/2 Ml Inj) 4 mg IV Q8H PRN PRN Reason: Nausea And Vomiting Last Admin: 07/18/21 09:47 Dose: 4 mg Documented by: Sodium Chloride (Sodium Chloride 0.9% 10 Ml Flush Syringe) 10 ml IV BID [facility] Last Admin: 07/22/21 09:54 Dose: 10 ml Documented by: Sodium Chloride (Sodium Chloride 0.9% 10 Ml Flush Syringe) 10 ml IV PRN PRN PRN Reason: LINE FLUSH Last Admin: 07/19/21 20:35 Dose: 10 ml Documented by: Sodium Hypochlorite (Sodium Hypochlorite, Dakin's Full Strength (0.5%) 473 Ml Topical Soln) 1 applic TP BID [facility] Last Admin: 07/22/21 09:53 Dose: 1 applicatio Documented by: Mental Status Exam - Vital signs Last Vital Signs Temp 98.8 F 07/22/21 07:45 Pulse 97 H 07/22/21 07:45 Resp 18 07/22/21 07:45 BP 114/68 07/22/21 07:45 Pulse Ox 96 07/22/21 10:00 Results Result Diagrams: 07/20/21 04:24 07/21/21 03:49 All other labs normal.
--- NOTE | 2021-07-22 12:33 | Progress Note ---
Assessment and Plan Assessment and plan: This is a 45 years old female with history of psychiatric problem/drug abuse was brought to the emergency room from [facility] because of abdominal pain. Abdominal pain moderate in intensity constant does not radiate aching generalized started since yesterday. Patient also complained of abdominal pain but denies fever, nausea or vomiting. Patient is right colectomy with end ileostomy and omentectomy by Dr. Ruben Colón on 06/29/2021 CT scan of the abdomen done in other hospital shows postsurgical changes from previous bowel resection there is a 9.1 x 6.1 cm fluid collection near the an astomosis in the right hemiabdomen extending to the inferior liver margin and gallbladder fossa concerning for abscess. There is pericholecystic fluid and AN area of hypoattenuation in the inferior margin of the liver which could be a developing abscess currently there is no drainable intrahepatic abscess. A few scattered foci of free air in the abdomen this could be related to the postsurgical changes although an anastomotic leak cannot be excluded. There is additional loculated fluid collection more inferiorly in the anterior pelvis surgical consult patient is recommended We will going to admit the patient we will put the patient on Zosyn 4.5 g IV every 8 hours and clindamycin 600 mg IV every [address] Ruben Colón for evaluation. All labs are pending 07/16: IR consulted, continue current medications, Fire And Safety Helper consult. Continue current medications and pain control. Replace potassium 07/17: Patient seen and examined clinically stable at this time no new com plaint. Continue supportive care. Awaiting IR intervention. Anticipate discharge in a.m. if cultures results are available 07/18: Patient seen and examined tolerating clear liquid diet which is rec ommendation by the surgeon. extension worker has been consulted to assist with discharge planning and o utpatient follow-up considering patient's financial status 07/19 patient is awake and alert and complains of abdominal pain and states that it is 9/10 on the pain scale. She was discharged yesterday. Discussed with rifle case repairer and RN Apparently has issues with discharge as family is refusing to take care of her. Also discussed with general surgery Dr. Miranda 07/20 no acute events overnight. She is awake and alert. Complains of abdominal pain. Lab results reviewed. Discussed with patient's stepfather in person about discharge. Does not look like he is willing to take care of her. cyber security manager was present during my discussion 07/21 no acute events overnight. Complains of abdominal pain. Lab results reviewed. Waiting for disposition 07/22: Patient seen and examined, continue supportive care, Per surgeon wound cannot be closed due dehiscence. Case management working on placment. Patient will follow outpatient with surgeon. Per surgery Pt can be discharged ONCE social service arrangements are made. Pt has an abdominal wound and ileostomy. Arrangements for care of these MUST be made before discharge. She is also self pay and a meth addict. Per infectious disease No fever. Underwent IR drainage, felt to be seroma with slight hematogenous component, no organisms seen on Gram stain. Assessment and plan History of abdominal abscess/peritonitis Status post right hemicolectomy /Colostomy and has open wound Patient also has a drain and per discussion with general surgery patient can go home with the drain Needs outpatient follow-up with wound care and general surgery in 2 weeks Wound cultures results reviewed Abdominal pain Secondary to #1 Pain control Normocytic anemia Multifactorial including chronic illness and recent surgery Moderate PCM Thrombocytosis - reactive Hypokalemia-improved History Interval history: Patient seen and examined, still with abdominal pain, but tolerating diet. Hospitalist Physical - Constitutional Vitals: Temp Pulse Resp BP Pulse Ox 98.1 F 94 H 18 127/65 98 07/22/21 11:53 07/22/21 11:53 07/22/21 11:53 07/22/21 11:53 07/22/21 11:53 General appearance: Present: no acute distress Results - Labs CBC & Chem 7: 07/20/21 04:24 07/21/21 03:49 Labs: Laboratory Last Values WBC 8.4 K/mm3 (4.5-11.0) 07/20/21 04:24 RBC 3.06 M/mm3 (3.65-5.03) L 07/20/21 04:24 Hgb 8.6 gm/dl (10.1-14.3) L 07/20/21 04:24 Hct 27.6 % (30.3-42.9) L 07/20/21 04:24 MCV 90 fl (79-97) 07/20/21 04:24 MCH 28 pg (28-32) 07/20/21 04:24 MCHC 31 % (30-34) 07/20/21 04:24 RDW 14.7 % (13.2-15.2) 07/20/21 04:24 Plt Count 501 K/mm3 (140-440) H 07/20/21 04:24 Lymph % (Auto) 26.2 % (13.4-35.0) 07/16/21 04:13 [place] % (Auto) 10.3 % (0.0-7.3) H 07/16/21 04:13 Eos % (Auto) 4.5 % (0.0-4.3) H 07/16/21 04:13 Baso % (Auto) 0.5 % (0.0-1.8) 07/16/21 04:13 Lymph # (Auto) 1.8 K/mm3 (1.2-5.4) 07/16/21 04:13 [place] # (Auto) 0.7 K/mm3 (0.0-0.8) 07/16/21 04:13 Eos # (Auto) 0.3 K/mm3 (0.0-0.4) 07/16/21 04:13 Baso # (Auto) 0.0 K/mm3 (0.0-0.1) 07/16/21 04:13 Seg Neutrophils % 58.5 % (40.0-70.0) 07/16/21 04:13 Seg Neutrophils # 4.0 K/mm3 (1.8-7.7) 07/16/21 04:13 PT 14.6 Sec. (12.2-14.9) 07/15/21 05:24 INR 1.03 (0.87-1.13) 07/15/21 05:24 Sodium 135 mmol/L (137-145) L 07/21/21 03:49 Potassium 4.1 mmol/L (3.6-5.0) D 07/21/21 03:49 Chloride 98.8 mmol/L (98-107) 07/21/21 03:49 Carbon Dioxide 24 mmol/L (22-30) 07/21/21 03:49 Anion Gap 16 mmol/L 07/21/21 03:49 BUN 5 mg/dL (7-17) L 07/21/21 03:49 Creatinine 0.4 mg/dL (0.6-1.2) L 07/21/21 03:49 Estimated GFR > 60 ml/min 07/21/21 03:49 BUN/Creatinine Ratio 13 % 07/21/21 03:49 Glucose 110 mg/dL (65-100) H 07/21/21 03:49 POC Glucose 81 mg/dL (70-105) 07/15/21 20:26 Calcium 8.3 mg/dL (8.4-10.2) L 07/21/21 03:49 Total Bilirubin 0.30 mg/dL (0.1-1.2) 07/16/21 04:13 AST 9 units/L (5-40) 07/16/21 04:13 ALT 6 units/L (7-56) L 07/16/21 04:13 Alkaline Phosphatase 185 units/L (35-129) H 07/16/21 04:13 Total Protein 6.3 g/dL (6.3-8.2) 07/16/21 04:13 Albumin 1.9 g/dL (3.9-5) L 07/16/21 04:13 Albumin/Globulin Ratio 0.4 % 07/16/21 04:13 Nasal Screen MRSA (PCR) Negative (Negative) 07/16/21 04:38 [place]/IV: Voiding Method External Female Catheter Active Medications - Current Medications Current Medications: Generic Name Dose Route Start Last Admin Trade Name Freq PRN Reason Stop Dose Admin Acetaminophen 650 mg 07/15/21 05:11 Acetaminophen 325 Mg Tab PO Q4H PRN Pain MILD(1-3)/Fever >100.5/PAYNE Albuterol 2.5 mg 07/15/21 05:11 Albuterol 2.5 Mg/3 Ml Nebu IH Q4HRT PRN Shortness Of Breath Famotidine 20 mg 07/15/21 10:00 07/22/21 09:53 Famotidine 20 Mg/2 Ml Inj IV 20 mg BID SOILA Administration Heparin Sodium (Porcine) 5,000 unit 07/15/21 10:00 07/22/21 09:53 Heparin 5,000 Unit/1 Ml Vial SUB-Q 5,000 unit Q12HR SOILA Administration Hydromorphone HCl 0.5 mg 07/15/21 05:11 07/22/21 06:35 Hydromorphone 1 Mg/1 Ml Inj IV 0.5 mg Q3H PRN Administration Pain , Severe (7-10) Dextrose/Sodium Chloride 1,000 mls @ 100 mls/hr 07/15/21 06:00 07/21/21 20:50 D5/0.45ns IV 100 mls/hr DIRECT SOILA Administration Morphine Sulfate 2 mg 07/15/21 05:11 07/22/21 09:54 Morphine 2 Mg/1 Ml Inj IV 2 mg Q4H PRN Administration Pain, Moderate (4-6) Ondansetron HCl 4 mg 07/15/21 05:11 07/18/21 09:47 Ondansetron 4 Mg/2 Ml Inj IV 4 mg Q8H PRN Administration Nausea And Vomiting Sodium Chloride 10 ml 07/15/21 10:00 07/22/21 09:54 Sodium Chloride 0.9% 10 Ml Flush Syringe IV 10 ml BID SOILA Administration Sodium Chloride 10 ml 07/15/21 05:11 07/19/21 20:35 Sodium Chloride 0.9% 10 Ml Flush Syringe IV 10 ml PRN PRN Administration LINE FLUSH Sodium Hypochlorite 1 applic 07/20/21 10:00 07/22/21 09:53 Sodium Hypochlorite, Dakin's Full Strength (0.5%) 473 Ml Topical Soln TP 1 applicatio BID SOILA Administration Nutrition/Malnutrition Assess - Dietary Evaluation Nutrition/Malnutrition Findings: Nutrition Notes Start: 07/15/21 1 2:08 Freq: Status: Active Protocol: Document 07/18/21 16:26 JORGE (Rec: 07/18/21 16:46 JORGE [id number]) Nutrition Notes Initial or Follow up Reassessment Other Pertinent Diagnosis Abdominal abscess, Peritonitis , Hx: (R) colectomy with end ileostomy Current Diet Clear Liquids Diet (since B ). Labs/Tests 07/18: Na 136, BUN 2, Crea 0.5 , Ca 8.1. Pertinent Medications 07/18: D5/0.45ns 1,000 ml @ 100 ml/hr, others nutritionally unremarkable. Height 5 ft 2 in Weight 91.2 kg [place] Body Weight (kg) 50.00 BMI 36.8 Subjective/Other Information RD consult for routine F/U on PPN or TPN. Percent of energy/protein needs met: Prescribed Clear Liquids Diet provides for energy/protein needs (590 Kcal/16 g) during LOS. Burn Absent Trauma Absent GI Symptoms Other Food Allergy No Skin Integrity/Comment Surgical abdominal wound Current % PO Fair (50-74%) Minimum of two criteria No #1 Nutrition Diagnosis Altered GI function Etiology Abdominal abscess, peritonitis , hx of (R) colectomy with end ileostomy As Evidenced by Signs and Symptoms Surgery performed. Diagnosis Progress(for reassessment Improved documentation) Is patient on ventilator? No Is Patient Ambulatory and/or Out of Bed Yes REE-([facility]-ambulatory/OOB) [ 1963.325 NUTR.[id number]] Calculation Used for Recommendations [facility] Additional Notes Pro needs 1-1.2g/kg; adjBW: 68 -82g/day Fluid needs 1ml/kcal, or as per MD. Nutrition Intervention Change Diet Order: Continue Clear Liquids Diet as per MD; when pertinent, advance to Regular Diet. Goal #1 Maintain body weight within +/ -3% of current BWt during LOS. Goal #2 Reach and maintain acceptable chemistry lab values during LOS. Follow-Up By: 07/23/21 Additional Comments Continue monitoring food tolerance, %PO intake of meals , Hydration, and BM.
[2021-07-23] MEDS: HYDROmorphone 1 MG/1 ML INJ IV PRN ×5 (01:37→19:14)
[2021-07-23] MEDS: D5W/0.45% NACL 1,000 ML IV SCH ×2 (04:11→23:11)
--- NOTE | 2021-07-23 09:06 | Progress Note ---
Assessment and Plan Assessment and plan: This is a 45 years old female with history of psychiatric problem/drug abuse was brought to the emergency room from [facility] because of abdominal pain. Abdominal pain moderate in intensity constant does not radiate aching generalized started since yesterday. Patient also complained of abdominal pain but denies fever, nausea or vomiting. Patient is right colectomy with end ileostomy and omentectomy by Dr. Ruben Colón on 06/29/2021 CT scan of the abdomen done in other hospital shows postsurgical changes from previous bowel resection there is a 9.1 x 6.1 cm fluid collection near the a nastomosis in the right hemiabdomen extending to the inferior liver margin and gallbladder fossa concerning for abscess. There is pericholecystic fluid and AN area of hypoattenuation in the inferior margin of the liver which could be a developing abscess currently there is no drainable intrahepatic abscess. A few scattered foci of free air in the abdomen this could be related to the postsurgical changes although an anastomotic leak cannot be excluded. There is additional loculated fluid collection more inferiorly in the anterior pelvis surgical consult patient is recommended We will going to admit the patient we will put the patient on Zosyn 4.5 g IV every 8 hours and clindamycin 600 mg IV every [address] Ruben Colón for evaluation. All labs are pending 07/16: IR consulted, continue current medications, Marine Surveyor consult. Continue current medications and pain control. Replace potassium 07/17: Patient seen and examined clinically stable at this time no new co mplaint. Continue supportive care. Awaiting IR intervention. Anticipate discharge in a.m. if cultures results are available 07/18: Patient seen and examined tolerating clear liquid diet which is re commendation by the surgeon. salvage mend worker has been consulted to assist with discharge planning and outpatient follow-up considering patient's financial status 07/19 patient is awake and alert and complains of abdominal pain and states that it is 9/10 on the pain scale. She was discharged yesterday. Discussed with case sealer and RN Apparently has issues with discharge as family is refusing to take care of her. Also discussed with general surgery Dr. Miranda 07/20 no acute events overnight. She is awake and alert. Complains of abdominal pain. Lab results reviewed. Discussed with patient's stepfather in person about discharge. Does not look like he is willing to take care of her. manager registration was present during my discussion 07/21 no acute events overnight. Complains of abdominal pain. Lab results reviewed. Waiting for disposition 07/22: Patient seen and examined, continue supportive care, Per surgeon wound cannot be closed due dehiscence. Case management working on placment. Patient will follow outpatient with surgeon. 07/23: Patient seen and examined, continue supportive care, Per surgeon wound cannot be closed due to dehiscence. Case management working on placement. Patient will follow outpatient with surgeon. Per surgery Pt can be discharged ONCE social service arrangements are made. Pt has an abdominal wound and ileostomy. Arrangements for care of these MUST be made before discharge. She is also self pay and a meth addict. Per infectious disease No fever. Underwent IR drainage, felt to be seroma with slight hematogenous component, no organisms seen on Gram stain. Assessment and plan History of abdominal abscess/peritonitis Status post right hemicolectomy /Colostomy and has open wound Patient also has a drain and per discussion with general surgery patient can go home with the drain Needs outpatient follow-up with wound care and general surgery in 2 weeks Wound cultures results reviewed Abdominal pain Secondary to #1 Pain control Normocytic anemia Multifactorial including chronic illness and recent surgery Moderate PCM Thrombocytosis - reactive Hypokalemia-improved History Interval history: No new issues overnight. Hospitalist Physical - Constitutional Vitals: Temp Pulse Resp BP Pulse Ox 98.6 F 92 H 18 121/70 92 07/23/21 07:47 07/23/21 07:47 07/23/21 07:47 07/23/21 07:47 07/23/21 07:47 General appearance: Present: no acute distress - EENT Eyes: Present: PERRL, EOM intact ENT: hearing intact, clear oral mucosa, dentition normal - Neck Neck: Present: supple, normal ROM - Respiratory Respiratory effort: normal Respiratory: bilateral: CTA - Cardiovascular Rhythm: regular Heart Sounds: Present: S1 & S2. Absent: gallop, rub - Extremities Extremities: no ischemia, No edema, Full ROM - Abdominal General gastrointestinal: soft, non-tender, non-distended, normal bowel sounds - Integumentary Integumentary: Present: clear, warm, dry - Neurologic Neurologic: CNII-XII intact, moves all extremities Results - Labs CBC & Chem 7: 07/20/21 04:24 07/21/21 03:49 Labs: Laboratory Last Values WBC 8.4 K/mm3 (4.5-11.0) 07/20/21 04:24 RBC 3.06 M/mm3 (3.65-5.03) L 07/20/21 04:24 Hgb 8.6 gm/dl (10.1-14.3) L 07/20/21 04:24 Hct 27.6 % (30.3-42.9) L 07/20/21 04:24 MCV 90 fl (79-97) 07/20/21 04:24 MCH 28 pg (28-32) 07/20/21 04:24 MCHC 31 % (30-34) 07/20/21 04:24 RDW 14.7 % (13.2-15.2) 07/20/21 04:24 Plt Count 501 K/mm3 (140-440) H 07/20/21 04:24 Lymph % (Auto) 26.2 % (13.4-35.0) 07/16/21 04:13 [place] % (Auto) 10.3 % (0.0-7.3) H 07/16/21 04:13 Eos % (Auto) 4.5 % (0.0-4.3) H 07/16/21 04:13 Baso % (Auto) 0.5 % (0.0-1.8) 07/16/21 04:13 Lymph # (Auto) 1.8 K/mm3 (1.2-5.4) 07/16/21 04:13 [place] # (Auto) 0.7 K/mm3 (0.0-0.8) 07/16/21 04:13 Eos # (Auto) 0.3 K/mm3 (0.0-0.4) 07/16/21 04:13 Baso # (Auto) 0.0 K/mm3 (0.0-0.1) 07/16/21 04:13 Seg Neutrophils % 58.5 % (40.0-70.0) 07/16/21 04:13 Seg Neutrophils # 4.0 K/mm3 (1.8-7.7) 07/16/21 04:13 PT 14.6 Sec. (12.2-14.9) 07/15/21 05:24 INR 1.03 (0.87-1.13) 07/15/21 05:24 Sodium 135 mmol/L (137-145) L 07/21/21 03:49 Potassium 4.1 mmol/L (3.6-5.0) D 07/21/21 03:49 Chloride 98.8 mmol/L (98-107) 07/21/21 03:49 Carbon Dioxide 24 mmol/L (22-30) 07/21/21 03:49 Anion Gap 16 mmol/L 07/21/21 03:49 BUN 5 mg/dL (7-17) L 07/21/21 03:49 Creatinine 0.4 mg/dL (0.6-1.2) L 07/21/21 03:49 Estimated GFR > 60 ml/min 07/21/21 03:49 BUN/Creatinine Ratio 13 % 07/21/21 03:49 Glucose 110 mg/dL (65-100) H 07/21/21 03:49 POC Glucose 100 mg/dL (70-105) 07/23/21 07:45 Calcium 8.3 mg/dL (8.4-10.2) L 07/21/21 03:49 Total Bilirubin 0.30 mg/dL (0.1-1.2) 07/16/21 04:13 AST 9 units/L (5-40) 07/16/21 04:13 ALT 6 units/L (7-56) L 07/16/21 04:13 Alkaline Phosphatase 185 units/L (35-129) H 07/16/21 04:13 Total Protein 6.3 g/dL (6.3-8.2) 07/16/21 04:13 Albumin 1.9 g/dL (3.9-5) L 07/16/21 04:13 Albumin/Globulin Ratio 0.4 % 07/16/21 04:13 Nasal Screen MRSA (PCR) Negative (Negative) 07/16/21 04:38 [place]/IV: Voiding Method External Female Catheter Active Medications - Current Medications Current Medications: Generic Name Dose Route Start Last Admin Trade Name Freq PRN Reason Stop Dose Admin Acetaminophen 650 mg 07/15/21 05:11 Acetaminophen 325 Mg Tab PO Q4H PRN Pain MILD(1-3)/Fever >100.5/PAYNE Albuterol 2.5 mg 07/15/21 05:11 Albuterol 2.5 Mg/3 Ml Nebu IH Q4HRT PRN Shortness Of Breath Famotidine 20 mg 07/15/21 10:00 07/22/21 21:16 Famotidine 20 Mg/2 Ml Inj IV 20 mg BID SOILA Administration Heparin Sodium (Porcine) 5,000 unit 07/15/21 10:00 07/22/21 21:17 Heparin 5,000 Unit/1 Ml Vial SUB-Q 5,000 unit Q12HR SOILA Administration Hydromorphone HCl 0.5 mg 07/15/21 05:11 07/23/21 05:17 Hydromorphone 1 Mg/1 Ml Inj IV 0.5 mg Q3H PRN Administration Pain , Severe (7-10) Dextrose/Sodium Chloride 1,000 mls @ 100 mls/hr 07/15/21 06:00 07/23/21 04:11 D5/0.45ns IV 100 mls/hr DIRECT SOILA Administration Morphine Sulfate 2 mg 07/15/21 05:11 07/22/21 17:30 Morphine 2 Mg/1 Ml Inj IV 2 mg Q4H PRN Administration Pain, Moderate (4-6) Ondansetron HCl 4 mg 07/15/21 05:11 07/18/21 09:47 Ondansetron 4 Mg/2 Ml Inj IV 4 mg Q8H PRN Administration Nausea And Vomiting Sodium Chloride 10 ml 07/15/21 10:00 07/22/21 21:17 Sodium Chloride 0.9% 10 Ml Flush Syringe IV 10 ml BID SOILA Administration Sodium Chloride 10 ml 07/15/21 05:11 07/23/21 05:18 Sodium Chloride 0.9% 10 Ml Flush Syringe IV 10 ml PRN PRN Administration LINE FLUSH Sodium Hypochlorite 1 applic 07/20/21 10:00 07/22/21 21:19 Sodium Hypochlorite, Dakin's Full Strength (0.5%) 473 Ml Topical Soln TP 1 applicatio BID SOILA Administration Nutrition/Malnutrition Assess - Dietary Evaluation Nutrition/Malnutrition Findings: Nutrition Notes Start: 07/15/21 12:08 Freq: Status: Active Protocol: Document 07/18/21 16:26 JORGE (Rec: 07/18/21 16:46 JORGE [id number]) Nutrition Notes Initial or Follow up Reassessment Other Pertinent Diagnosis Abdominal abscess, Peritonitis , Hx: (R) colectomy with end ileostomy Current Diet Clear Liquids Diet (since B ). Labs/Tests 07/18: Na 136, BUN 2, Crea 0.5 , Ca 8.1. Pertinent Medications 07/18: D5/0.45ns 1,000 ml @ 100 ml/hr, others nutritionally unremarkable. Height 5 ft 2 in Weight 91.2 kg [place] Body Weight (kg) 50.00 BMI 36.8 Subjective/Other Information RD consult for routine F/U on PPN or TPN. Percent of energy/protein needs met: Prescribed Clear Liquids Diet provides for energy/protein needs (590 Kcal/16 g) during LOS. Burn Absent Trauma Absent GI Symptoms Other Food Allergy No Skin Integrity/Comment Surgical abdominal wound Current % PO Fair (50-74%) Minimum of two criteria No #1 Nutrition Diagnosis Altered GI function Etiology Abdominal abscess, peritonitis , hx of (R) colectomy with end ileostomy As Evidenced by Signs and Symptoms Surgery performed. Diagnosis Progress(for reassessment Improved documentation) Is patient on ventilator? No Is Patient Ambulatory and/or Out of Bed Yes REE-([place]-[facility]-ambulatory/OOB) [ 1963.325 NUTR.[id number]] Calculation Used for Recommendations [place]-[facility] Additional Notes Pro needs 1-1.2g/kg; adjBW: 68 -82g/day Fluid needs 1ml/kcal, or as per MD. Nutrition Intervention Change Diet Order: Continue Clear Liquids Diet as per MD; when pertinent, advance to Regular Diet. Goal #1 Maintain body weight within +/ -3% of current BWt during LOS. Goal #2 Reach and maintain acceptable chemistry lab values during LOS. Follow-Up By: 07/23/21 Additional Comments Continue monitoring food tolerance, %PO intake of meals , Hydration, and BM.
[2021-07-23] MEDS: HEPARIN 5,000 UNIT/1 ML VIAL SUB-Q SCH ×2 (09:19→21:44)
[2021-07-23] MEDS: FAMOTIDINE 20 MG/2 ML INJ IV SCH ×2 (09:19→21:44)
[2021-07-23] MEDS: SODIUM HYPOCHLORITE, DAKIN'S FULL STRENGTH (0.5%) 473 ML TOPICAL SOLN TP SCH ×2 (17:12→21:44)
[2021-07-23] MEDS: MORPHINE 2 MG/1 ML INJ IV PRN (23:12)
[2021-07-24] MEDS: MORPHINE 2 MG/1 ML INJ IV PRN ×3 (03:37→13:15)
--- NOTE | 2021-07-24 08:23 | Progress Note ---
Assessment and Plan Assessment and plan: This is a 45 years old female with history of psychiatric problem/drug abuse was brought to the emergency room from [facility] because of abdominal pain. Abdominal pain moderate in intensity constant does not radiate aching generalized started since yesterday. Patient also complained of abdominal pain but denies fever, nausea or vomiting. Patient is right colectomy with end ileostomy and omentectomy by Dr. Ruben Colón on 06/29/2021 CT scan of the abdomen done in other hospital shows postsurgical changes from previous bowel resection there is a 9.1 x 6.1 cm fluid collection near the a nastomosis in the right hemiabdomen extending to the inferior liver margin and gallbladder fossa concerning for abscess. There is pericholecystic fluid and AN area of hypoattenuation in the inferior margin of the liver which could be a developing abscess currently there is no drainable intrahepatic abscess. A few scattered foci of free air in the abdomen this could be related to the postsurgical changes although an anastomotic leak cannot be excluded. There is additional loculated fluid collection more inferiorly in the anterior pelvis surgical consult patient is recommended We will going to admit the patient we will put the patient on Zosyn 4.5 g IV every 8 hours and clindamycin 600 mg IV every [address] Ruben Colón for evaluation. All labs are pending 07/16: IR consulted, continue current medications, Industrial Maintenance Tech consult. Continue current medications and pain control. Replace potassium 07/17: Patient seen and examined clinically stable at this time no new co mplaint. Continue supportive care. Awaiting IR intervention. Anticipate discharge in a.m. if cultures results are available 07/18: Patient seen and examined tolerating clear liquid diet which is re commendation by the surgeon. meat process worker has been consulted to assist with discharge planning and outpatient follow-up considering patient's financial status 07/19 patient is awake and alert and complains of abdominal pain and states that it is 9/10 on the pain scale. She was discharged yesterday. Discussed with child welfare caseworker and RN Apparently has issues with discharge as family is refusing to take care of her. Also discussed with general surgery Dr. Miranda 07/20 no acute events overnight. She is awake and alert. Complains of abdominal pain. Lab results reviewed. Discussed with patient's stepfather in person about discharge. Does not look like he is willing to take care of her. social media content manager was present during my discussion 07/21 no acute events overnight. Complains of abdominal pain. Lab results reviewed. Waiting for disposition 07/22: Patient seen and examined, continue supportive care, Per surgeon wound cannot be closed due dehiscence. Case management working on placment. Patient will follow outpatient with surgeon. 07/23: Patient seen and examined, continue supportive care, Per surgeon wound cannot be closed due to dehiscence. Case management working on placement. Patient will follow outpatient with surgeon. 07/24: Patient seen and examined, continue supportive care, Per surgeon wound cannot be closed due to dehiscence. Case management working on placement. Patient will follow outpatient with surgeon. Per surgery Pt can be discharged ONCE social service arrangements are made. Pt has an abdominal wound and ileostomy. Arrangements for care of these MUST be made before discharge. She is also self pay and a meth addict. Per infectious disease No fever. Underwent IR drainage, felt to be seroma with slight hematogenous component, no organisms seen on Gram stain. Assessment and plan History of abdominal abscess/peritonitis Status post right hemicolectomy /Colostomy and has open wound Patient also has a drain and per discussion with general surgery patient can go home with the drain Needs outpatient follow-up with wound care and general surgery in 2 weeks Wound cultures results reviewed Abdominal pain Secondary to #1 Pain control Normocytic anemia Multifactorial including chronic illness and recent surgery Moderate PCM Thrombocytosis - reactive Hypokalemia-improved History Interval history: No new issues overnight. Hospitalist Physical - Constitutional Vitals: Temp Pulse Resp BP Pulse Ox 97.7 F 94 H 16 104/69 98 07/24/21 04:06 07/24/21 04:06 07/24/21 04:06 07/24/21 04:06 07/24/21 04:06 General appearance: Present: no acute distress - EENT Eyes: Present: PERRL, EOM intact ENT: hearing intact, clear oral mucosa, dentition normal - Neck Neck: Present: supple, normal ROM - Respiratory Respiratory effort: normal Respiratory: bilateral: CTA - Cardiovascular Rhythm: regular Heart Sounds: Present: S1 & S2. Absent: gallop, rub - Extremities Extremities: no ischemia, No edema, Full ROM - Abdominal General gastrointestinal: soft, non-tender, non-distended, normal bowel sounds - Integumentary Integumentary: Present: clear, warm, dry - Neurologic Neurologic: CNII-XII intact, moves all extremities Results - Labs CBC & Chem 7: 07/20/21 04:24 07/21/21 03:49 Labs: Laboratory Last Values WBC 8.4 K/mm3 (4.5-11.0) 07/20/21 04:24 RBC 3.06 M/mm3 (3.65-5.03) L 07/20/21 04:24 Hgb 8.6 gm/dl (10.1-14.3) L 07/20/21 04:24 Hct 27.6 % (30.3-42.9) L 07/20/21 04:24 MCV 90 fl (79-97) 07/20/21 04:24 MCH 28 pg (28-32) 07/20/21 04:24 MCHC 31 % (30-34) 07/20/21 04:24 RDW 14.7 % (13.2-15.2) 07/20/21 04:24 Plt Count 501 K/mm3 (140-440) H 07/20/21 04:24 Lymph % (Auto) 26.2 % (13.4-35.0) 07/16/21 04:13 [place] % (Auto) 10.3 % (0.0-7.3) H 07/16/21 04:13 Eos % (Auto) 4.5 % (0.0-4.3) H 07/16/21 04:13 Baso % (Auto) 0.5 % (0.0-1.8) 07/16/21 04:13 Lymph # (Auto) 1.8 K/mm3 (1.2-5.4) 07/16/21 04:13 [place] # (Auto) 0.7 K/mm3 (0.0-0.8) 07/16/21 04:13 Eos # (Auto) 0.3 K/mm3 (0.0-0.4) 07/16/21 04:13 Baso # (Auto) 0.0 K/mm3 (0.0-0.1) 07/16/21 04:13 Seg Neutrophils % 58.5 % (40.0-70.0) 07/16/21 04:13 Seg Neutrophils # 4.0 K/mm3 (1.8-7.7) 07/16/21 04:13 PT 14.6 Sec. (12.2-14.9) 07/15/21 05:24 INR 1.03 (0.87-1.13) 07/15/21 05:24 Sodium 135 mmol/L (137-145) L 07/21/21 03:49 Potassium 4.1 mmol/L (3.6-5.0) D 07/21/21 03:49 Chloride 98.8 mmol/L (98-107) 07/21/21 03:49 Carbon Dioxide 24 mmol/L (22-30) 07/21/21 03:49 Anion Gap 16 mmol/L 07/21/21 03:49 BUN 5 mg/dL (7-17) L 07/21/21 03:49 Creatinine 0.4 mg/dL (0.6-1.2) L 07/21/21 03:49 Estimated GFR > 60 ml/min 07/21/21 03:49 BUN/Creatinine Ratio 13 % 07/21/21 03:49 Glucose 110 mg/dL (65-100) H 07/21/21 03:49 POC Glucose 101 mg/dL (70-105) 07/23/21 12:00 Calcium 8.3 mg/dL (8.4-10.2) L 07/21/21 03:49 Total Bilirubin 0.30 mg/dL (0.1-1.2) 07/16/21 04:13 AST 9 units/L (5-40) 07/16/21 04:13 ALT 6 units/L (7-56) L 07/16/21 04:13 Alkaline Phosphatase 185 units/L (35-129) H 07/16/21 04:13 Total Protein 6.3 g/dL (6.3-8.2) 07/16/21 04:13 Albumin 1.9 g/dL (3.9-5) L 07/16/21 04:13 Albumin/Globulin Ratio 0.4 % 07/16/21 04:13 Nasal Screen MRSA (PCR) Negative (Negative) 07/16/21 04:38 [place]/IV: Voiding Method External Female Catheter Active Medications - Current Medications Current Medications: Generic Name Dose Route Start Last Admin Trade Name Freq PRN Reason Stop Dose Admin Acetaminophen 650 mg 07/15/21 05:11 Acetaminophen 325 Mg Tab PO Q4H PRN Pain MILD(1-3)/Fever >100.5/PAYNE Albuterol 2.5 mg 07/15/21 05:11 Albuterol 2.5 Mg/3 Ml Nebu IH Q4HRT PRN Shortness Of Breath Famotidine 20 mg 07/15/21 10:00 07/23/21 21:44 Famotidine 20 Mg/2 Ml Inj IV 20 mg BID SOILA Administration Heparin Sodium (Porcine) 5,000 unit 07/15/21 10:00 07/23/21 21:44 Heparin 5,000 Unit/1 Ml Vial SUB-Q 5,000 unit Q12HR SOILA Administration Hydromorphone HCl 0.5 mg 07/15/21 05:11 07/23/21 19:14 Hydromorphone 1 Mg/1 Ml Inj IV 0.5 mg Q3H PRN Administration Pain , Severe (7-10) Dextrose/Sodium Chloride 1,000 mls @ 100 mls/hr 07/15/21 06:00 07/23/21 23:11 D5/0.45ns IV 100 mls/hr DIRECT SOILA Administration Morphine Sulfate 2 mg 07/15/21 05:11 07/24/21 03:37 Morphine 2 Mg/1 Ml Inj IV 2 mg Q4H PRN Administration Pain, Moderate (4-6) Ondansetron HCl 4 mg 07/15/21 05:11 07/18/21 09:47 Ondansetron 4 Mg/2 Ml Inj IV 4 mg Q8H PRN Administration Nausea And Vomiting Sodium Chloride 10 ml 07/15/21 10:00 07/23/21 21:44 Sodium Chloride 0.9% 10 Ml Flush Syringe IV 10 ml BID SOILA Administration Sodium Chloride 10 ml 07/15/21 05:11 07/23/21 05:18 Sodium Chloride 0.9% 10 Ml Flush Syringe IV 10 ml PRN PRN Administration LINE FLUSH Sodium Hypochlorite 1 applic 07/20/21 10:00 07/23/21 21:44 Sodium Hypochlorite, Dakin's Full Strength (0.5%) 473 Ml Topical Soln TP 1 applicatio BID SOILA Administration Nutrition/Malnutrition Assess - Dietary Evaluation Nutrition/Malnutrition Findings: Nutrition Notes Start: 07/15/21 12:08 Freq: Status: Active Protocol: Document 07/23/21 15:25 JORGE (Rec: 07/23/21 15:54 JOREG [id number]) Nutrition Notes Initial or Follow up Reassessment Other Pertinent Diagnosis R-hemicolectomy/open wound, Normocytic anemia, PCM, Thrombocytosis. Current Diet Clear Liquids Diet (since B ). Labs/Tests 07/21: Na 135, BUN 5, Crea 0.4 , Glu 110, Ca 8.3. Pertinent Medications 07/23: D5ns 1,000 ml @ 100 ml/ hr, others nutritionally unremarkable. Height 5 ft 2 in Weight 89.1 kg [place] Body Weight (kg) 50.00 BMI 35.9 Weight Status Obese Subjective/Other Information RD consult for review on diet advancement. PO intake of meals is Fair (50 %). Percent of energy/protein needs met: Prescribed Clear Liquids Diet provides for energy/protein needs (590 Kcal/16 g) during LOS. Burn Absent Trauma Absent GI Symptoms Other Food Allergy No Skin Integrity/Comment Surgical abdominal wound Current % PO Fair (50-74%) Minimum of two criteria No #2 Nutrition Diagnosis Inadequate protein-energy intake Etiology (R) colectomy with end ileostomy. As Evidenced by Signs and Symptoms Fair PO intake of meals (50%). #1 Nutrition Diagnosis Altered GI function Etiology Abdominal abscess, peritonitis , (R) colectomy with end ileostomy. As Evidenced by Signs and Symptoms Surgery performed. Diagnosis Progress(for reassessment Continues documentation) Is patient on ventilator? No Is Patient Ambulatory and/or Out of Bed Yes REE-([place]. or-ambulatory/OOB) [ 1936.025 NUTR.MSJOOB] Calculation Used for Recommendations [place] or Additional Notes Protein: 1.2-1.5 g/Kg; 60-75 g /day (from IBW + critical care ). Fluids: 1 ml/Kcal, or as per MD. Nutrition Intervention Change Diet Order: Continue Clear Liquids Diet as per MD; when pertinent, advance to Regular Diet. Add Supplement/Snack (indicate name/kcal 8 fl oz Ensure Clear; TID /protein ) Provides kCal: 720 Provides Protein (gm) 24 Goal #1 Maintain body weight within +/ -3% of current BWt during LOS. Goal #2 Reach and maintain acceptable chemistry lab values during LOS. Follow-Up By: 07/30/21 Additional Comments Continue monitoring food tolerance, %PO intake of meals , Hydration, and BM.
[2021-07-24] MEDS: D5W/0.45% NACL 1,000 ML IV SCH ×2 (09:40→20:32)
[2021-07-24] MEDS: HEPARIN 5,000 UNIT/1 ML VIAL SUB-Q SCH ×2 (09:55→21:21)
[2021-07-24] MEDS: FAMOTIDINE 20 MG/2 ML INJ IV SCH ×2 (09:56→21:21)
[2021-07-24] MEDS: SODIUM HYPOCHLORITE, DAKIN'S FULL STRENGTH (0.5%) 473 ML TOPICAL SOLN TP SCH ×2 (13:32→21:21)
[2021-07-24] MEDS: ONDANSETRON 4 MG/2 ML INJ IV PRN (13:32)
[2021-07-24] MEDS: HYDROmorphone 1 MG/1 ML INJ IV PRN ×2 (18:05→21:21)
[2021-07-25] MEDS: HYDROmorphone 1 MG/1 ML INJ IV PRN ×6 (01:29→21:11)
[2021-07-25] MEDS: D5W/0.45% NACL 1,000 ML IV SCH ×2 (05:18→17:53)
--- NOTE | 2021-07-25 09:01 | Progress Note ---
Assessment and Plan Assessment and plan: This is a 45 years old female with history of psychiatric problem/drug abuse was brought to the emergency room from [facility] because of abdominal pain. Abdominal pain moderate in intensity constant does not radiate aching generalized started since yesterday. Patient also complained of abdominal pain but denies fever, nausea or vomiting. Patient is right colectomy with end ileostomy and omentectomy by Dr. Ruben Colón on 06/29/2021 CT scan of the abdomen done in other hospital shows postsurgical changes from previous bowel resection there is a 9.1 x 6.1 cm fluid collection near the a nastomosis in the right hemiabdomen extending to the inferior liver margin and gallbladder fossa concerning for abscess. There is pericholecystic fluid and AN area of hypoattenuation in the inferior margin of the liver which could be a developing abscess currently there is no drainable intrahepatic abscess. A few scattered foci of free air in the abdomen this could be related to the postsurgical changes although an anastomotic leak cannot be excluded. There is additional loculated fluid collection more inferiorly in the anterior pelvis surgical consult patient is recommended We will going to admit the patient we will put the patient on Zosyn 4.5 g IV every 8 hours and clindamycin 600 mg IV every [address] Ruben Colón for evaluation. All labs are pending 07/16: IR consulted, continue current medications, Physician Intensivist consult. Continue current medications and pain control. Replace potassium 07/17: Patient seen and examined clinically stable at this time no new co mplaint. Continue supportive care. Awaiting IR intervention. Anticipate discharge in a.m. if cultures results are available 07/18: Patient seen and examined tolerating clear liquid diet which is re commendation by the surgeon. aids social worker has been consulted to assist with discharge planning and outpatient follow-up considering patient's financial status 07/19 patient is awake and alert and complains of abdominal pain and states that it is 9/10 on the pain scale. She was discharged yesterday. Discussed with community case manager and RN Apparently has issues with discharge as family is refusing to take care of her. Also discussed with general surgery Dr. Miranda 07/20 no acute events overnight. She is awake and alert. Complains of abdominal pain. Lab results reviewed. Discussed with patient's stepfather in person about discharge. Does not look like he is willing to take care of her. sales performance manager was present during my discussion 07/21 no acute events overnight. Complains of abdominal pain. Lab results reviewed. Waiting for disposition 07/22: Patient seen and examined, continue supportive care, Per surgeon wound cannot be closed due dehiscence. Case management working on placment. Patient will follow outpatient with surgeon. 07/23: Patient seen and examined, continue supportive care, Per surgeon wound cannot be closed due to dehiscence. Case management working on placement. Patient will follow outpatient with surgeon. 07/24: Patient seen and examined, continue supportive care, Per surgeon wound cannot be closed due to dehiscence. Case management working on placement. Patient will follow outpatient with surgeon. 07/25: Patient awaiting placement. Continue wound care per wound team. Per surgery Pt can be discharged ONCE social service arrangements are made. Pt has an abdominal wound and ileostomy. Arrangements for care of these MUST be made before discharge. She is also self pay and a meth addict. Per infectious disease No fever. Underwent IR drainage, felt to be seroma with slight hematogenous component, no organisms seen on Gram stain. Assessment and plan History of abdominal abscess/peritonitis Status post right hemicolectomy /Colostomy and has open wound Patient also has a drain and per discussion with general surgery patient can go home with the drain Needs outpatient follow-up with wound care and general surgery in 2 weeks Wound cultures results reviewed Abdominal pain Secondary to #1 Pain control Normocytic anemia Multifactorial including chronic illness and recent surgery Moderate PCM Thrombocytosis - reactive Hypokalemia-improved History Interval history: No new issues overnight. Hospitalist Physical - Constitutional Vitals: Temp Pulse Resp BP Pulse Ox 96.8 F L 98 H 18 116/76 92 07/25/21 08:00 07/25/21 08:00 07/25/21 08:00 07/25/21 08:00 07/25/21 03:58 General appearance: Present: no acute distress - EENT Eyes: Present: PERRL, EOM intact ENT: hearing intact, clear oral mucosa, dentition normal - Neck Neck: Present: supple, normal ROM - Respiratory Respiratory effort: normal Respiratory: bilateral: CTA - Cardiovascular Rhythm: regular Heart Sounds: Present: S1 & S2. Absent: gallop, rub - Extremities Extremities: no ischemia, No edema, Full ROM - Abdominal General gastrointestinal: soft, non-tender, non-distended, normal bowel sounds - Integumentary Integumentary: Present: clear, warm, dry - Neurologic Neurologic: CNII-XII intact, moves all extremities Results - Labs CBC & Chem 7: 07/20/21 04:24 07/21/21 03:49 Labs: Laboratory Last Values WBC 8.4 K/mm3 (4.5-11.0) 07/20/21 04:24 RBC 3.06 M/mm3 (3.65-5.03) L 07/20/21 04:24 Hgb 8.6 gm/dl (10.1-14.3) L 07/20/21 04:24 Hct 27.6 % (30.3-42.9) L 07/20/21 04:24 MCV 90 fl (79-97) 07/20/21 04:24 MCH 28 pg (28-32) 07/20/21 04:24 MCHC 31 % (30-34) 07/20/21 04:24 RDW 14.7 % (13.2-15.2) 07/20/21 04:24 Plt Count 501 K/mm3 (140-440) H 07/20/21 04:24 Lymph % (Auto) 26.2 % (13.4-35.0) 07/16/21 04:13 [place] % (Auto) 10.3 % (0.0-7.3) H 07/16/21 04:13 Eos % (Auto) 4.5 % (0.0-4.3) H 07/16/21 04:13 Baso % (Auto) 0.5 % (0.0-1.8) 07/16/21 04:13 Lymph # (Auto) 1.8 K/mm3 (1.2-5.4) 07/16/21 04:13 [place] # (Auto) 0.7 K/mm3 (0.0-0.8) 07/16/21 04:13 Eos # (Auto) 0.3 K/mm3 (0.0-0.4) 07/16/21 04:13 Baso # (Auto) 0.0 K/mm3 (0.0-0.1) 07/16/21 04:13 Seg Neutrophils % 58.5 % (40.0-70.0) 07/16/21 04:13 Seg Neutrophils # 4.0 K/mm3 (1.8-7.7) 07/16/21 04:13 PT 14.6 Sec. (12.2-14.9) 07/15/21 05:24 INR 1.03 (0.87-1.13) 07/15/21 05:24 Sodium 135 mmol/L (137-145) L 07/21/21 03:49 Potassium 4.1 mmol/L (3.6-5.0) D 07/21/21 03:49 Chloride 98.8 mmol/L (98-107) 07/21/21 03:49 Carbon Dioxide 24 mmol/L (22-30) 07/21/21 03:49 Anion Gap 16 mmol/L 07/21/21 03:49 BUN 5 mg/dL (7-17) L 07/21/21 03:49 Creatinine 0.4 mg/dL (0.6-1.2) L 07/21/21 03:49 Estimated GFR > 60 ml/min 07/21/21 03:49 BUN/Creatinine Ratio 13 % 07/21/21 03:49 Glucose 110 mg/dL (65-100) H 07/21/21 03:49 POC Glucose 101 mg/dL (70-105) 07/23/21 12:00 Calcium 8.3 mg/dL (8.4-10.2) L 07/21/21 03:49 Total Bilirubin 0.30 mg/dL (0.1-1.2) 07/16/21 04:13 AST 9 units/L (5-40) 07/16/21 04:13 ALT 6 units/L (7-56) L 07/16/21 04:13 Alkaline Phosphatase 185 units/L (35-129) H 07/16/21 04:13 Total Protein 6.3 g/dL (6.3-8.2) 07/16/21 04:13 Albumin 1.9 g/dL (3.9-5) L 07/16/21 04:13 Albumin/Globulin Ratio 0.4 % 07/16/21 04:13 Nasal Screen MRSA (PCR) Negative (Negative) 07/16/21 04:38 [place]/IV: Voiding Method External Female Catheter Active Medications - Current Medications Current Medications: Generic Name Dose Route Start Last Admin Trade Name Freq PRN Reason Stop Dose Admin Acetaminophen 650 mg 07/15/21 05:11 Acetaminophen 325 Mg Tab PO Q4H PRN Pain MILD(1-3)/Fever >100.5/PAYNE Albuterol 2.5 mg 07/15/21 05:11 Albuterol 2.5 Mg/3 Ml Nebu IH Q4HRT PRN Shortness Of Breath Famotidine 20 mg 07/15/21 10:00 07/24/21 21:21 Famotidine 20 Mg/2 Ml Inj IV 20 mg BID SOILA Administration Heparin Sodium (Porcine) 5,000 unit 07/15/21 10:00 07/24/21 21:21 Heparin 5,000 Unit/1 Ml Vial SUB-Q 5,000 unit Q12HR SOILA Administration Hydromorphone HCl 0.5 mg 07/15/21 05:11 07/25/21 05:18 Hydromorphone 1 Mg/1 Ml Inj IV 0.5 mg Q3H PRN Administration Pain , Severe (7-10) Dextrose/Sodium Chloride 1,000 mls @ 100 mls/hr 07/15/21 06:00 07/25/21 05:18 D5/0.45ns IV 100 mls/hr DIRECT SOILA Administration Morphine Sulfate 2 mg 07/15/21 05:11 07/24/21 13:15 Morphine 2 Mg/1 Ml Inj IV 2 mg Q4H PRN Administration Pain, Moderate (4-6) Ondansetron HCl 4 mg 07/15/21 05:11 07/24/21 13:32 Ondansetron 4 Mg/2 Ml Inj IV 4 mg Q8H PRN Administration Nausea And Vomiting Sodium Chloride 10 ml 07/15/21 10:00 07/24/21 21:21 Sodium Chloride 0.9% 10 Ml Flush Syringe IV 10 ml BID SOILA Administration Sodium Chloride 10 ml 07/15/21 05:11 07/23/21 05:18 Sodium Chloride 0.9% 10 Ml Flush Syringe IV 10 ml PRN PRN Administration LINE FLUSH Sodium Hypochlorite 1 applic 07/20/21 10:00 07/24/21 21:21 Sodium Hypochlorite, Dakin's Full Strength (0.5%) 473 Ml Topical Soln TP 1 applicatio BID SOILA Administration Nutrition/Malnutrition Assess - Dietary Evaluation Nutrition/Malnutrition Findings: Nutrition Notes Start: 07/15/21 12:08 Freq: Status: Active Protocol: Document 07/23/21 15:25 JORGE (Rec: 07/23/21 15:54 JORGE [id number]) Nutrition Notes Initial or Follow up Reassessment Other Pertinent Diagnosis R-hemicolectomy/open wound, Normocytic anemia, PCM, Thrombocytosis. Current Diet Clear Liquids Diet (since B ). Labs/Tests 07/21: Na 135, BUN 5, Crea 0.4 , Glu 110, Ca 8.3. Pertinent Medications 07/23: D5ns 1,000 ml @ 100 ml/ hr, others nutritionally unremarkable. Height 5 ft 2 in Weight 89.1 kg [place] Body Weight (kg) 50.00 BMI 35.9 Weight Status Obese Subjective/Other Information RD consult for review on diet advancement. PO intake of meals is Fair (50 %). Percent of energy/protein needs met: Prescribed Clear Liquids Diet provides for energy/protein needs (590 Kcal/16 g) during LOS. Burn Absent Trauma Absent GI Symptoms Other Food Allergy No Skin Integrity/Comment Surgical abdominal wound Current % PO Fair (50-74%) Minimum of two criteria No #2 Nutrition Diagnosis Inadequate protein-energy intake Etiology (R) colectomy with end ileostomy. As Evidenced by Signs and Symptoms Fair PO intake of meals (50%). #1 Nutrition Diagnosis Altered GI function Etiology Abdominal abscess, peritonitis , (R) colectomy with end ileostomy. As Evidenced by Signs and Symptoms Surgery performed. Diagnosis Progress(for reassessment Continues documentation) Is patient on ventilator? No Is Patient Ambulatory and/or Out of Bed Yes REE-([place]. Jeor-ambulatory/OOB) [ 1936.025 NUTR.MSJOOB] Calculation Used for Recommendations [place] or Additional Notes Protein: 1.2-1.5 g/Kg; 60-75 g /day (from IBW + critical care ). Fluids: 1 ml/Kcal, or as per MD. Nutrition Intervention Change Diet Order: Continue Clear Liquids Diet as per MD; when pertinent, advance to Regular Diet. Add Supplement/Snack (indicate name/kcal 8 fl oz Ensure Clear; TID /protein ) Provides kCal: 720 Provides Protein (gm) 24 Goal #1 Maintain body weight within +/ -3% of current BWt during LOS. Goal #2 Reach and maintain acceptable chemistry lab values during LOS. Follow-Up By: 07/30/21 Additional Comments Continue monitoring food tolerance, %PO intake of meals , Hydration, and BM.
[2021-07-25] MEDS: HEPARIN 5,000 UNIT/1 ML VIAL SUB-Q SCH ×2 (09:38→21:10)
[2021-07-25] MEDS: FAMOTIDINE 20 MG/2 ML INJ IV SCH ×2 (09:38→21:11)
[2021-07-25] MEDS: SODIUM HYPOCHLORITE, DAKIN'S FULL STRENGTH (0.5%) 473 ML TOPICAL SOLN TP SCH ×2 (09:44→21:13)
[2021-07-25] MEDS: ONDANSETRON 4 MG/2 ML INJ IV PRN ×2 (12:14→21:14)
[2021-07-25] MEDS: MORPHINE 2 MG/1 ML INJ IV PRN (23:30)
[2021-07-26] MEDS: ACETAMINOPHEN 325 MG TAB PO PRN ×2 (00:48→09:03)
[2021-07-26] MEDS: HYDROmorphone 1 MG/1 ML INJ IV PRN ×4 (02:28→20:31)
[2021-07-26] MEDS: D5W/0.45% NACL 1,000 ML IV SCH ×2 (03:55→18:47)
[2021-07-26] MEDS: MORPHINE 2 MG/1 ML INJ IV PRN (05:34)
--- NOTE | 2021-07-26 07:59 | Progress Note ---
Assessment and Plan Assessment and plan: This is a 45 years old female with history of psychiatric problem/drug abuse was brought to the emergency room from [facility] because of abdominal pain. Abdominal pain moderate in intensity constant does not radiate aching generalized started since yesterday. Patient also complained of abdominal pain but denies fever, nausea or vomiting. Patient is right colectomy with end ileostomy and omentectomy by Dr. Ruben Colón on 06/29/2021 CT scan of the abdomen done in other hospital shows postsurgical changes from previous bowel resection there is a 9.1 x 6.1 cm fluid collection near the a nastomosis in the right hemiabdomen extending to the inferior liver margin and gallbladder fossa concerning for abscess. There is pericholecystic fluid and AN area of hypoattenuation in the inferior margin of the liver which could be a developing abscess currently there is no drainable intrahepatic abscess. A few scattered foci of free air in the abdomen this could be related to the postsurgical changes although an anastomotic leak cannot be excluded. There is additional loculated fluid collection more inferiorly in the anterior pelvis surgical consult patient is recommended We will going to admit the patient we will put the patient on Zosyn 4.5 g IV every 8 hours and clindamycin 600 mg IV every [address] Ruben Colón for evaluation. All labs are pending 07/16: IR consulted, continue current medications, Environmental Science Program Director consult. Continue current medications and pain control. Replace potassium 07/17: Patient seen and examined clinically stable at this time no new co mplaint. Continue supportive care. Awaiting IR intervention. Anticipate discharge in a.m. if cultures results are available 07/18: Patient seen and examined tolerating clear liquid diet which is re commendation by the surgeon. property worker has been consulted to assist with discharge planning and outpatient follow-up considering patient's financial status 07/19 patient is awake and alert and complains of abdominal pain and states that it is 9/10 on the pain scale. She was discharged yesterday. Discussed with registered nurse hh case manager and RN Apparently has issues with discharge as family is refusing to take care of her. Also discussed with general surgery Dr. Miranda 07/20 no acute events overnight. She is awake and alert. Complains of abdominal pain. Lab results reviewed. Discussed with patient's stepfather in person about discharge. Does not look like he is willing to take care of her. senior relationship manager was present during my discussion 07/21 no acute events overnight. Complains of abdominal pain. Lab results reviewed. Waiting for disposition 07/22: Patient seen and examined, continue supportive care, Per surgeon wound cannot be closed due dehiscence. Case management working on placment. Patient will follow outpatient with surgeon. 07/23: Patient seen and examined, continue supportive care, Per surgeon wound cannot be closed due to dehiscence. Case management working on placement. Patient will follow outpatient with surgeon. 07/24: Patient seen and examined, continue supportive care, Per surgeon wound cannot be closed due to dehiscence. Case management working on placement. Patient will follow outpatient with surgeon. 07/25: Patient awaiting placement. Continue wound care per wound team. 07/26: Patient seen and examined, continue supportive care, Per surgeon wound cannot be closed due to dehiscence. Case management working on placement. Patient will follow outpatient with surgeon. Psychiatry also evaluated the patient and agree with need for placement. No recommendations for acute inpatient psychiatric treatment Per surgery Pt can be discharged ONCE social service arrangements are made. Pt has an abdominal wound and ileostomy. Arrangements for care of these MUST be made before discharge. She is also self pay and a meth addict. Per infectious disease No fever. Underwent IR drainage, felt to be seroma with slight hematogenous component, no organisms seen on Gram stain. Assessment and plan History of abdominal abscess/peritonitis Status post right hemicolectomy /Colostomy and has open wound Patient also has a drain and per discussion with general surgery patient can go home with the drain Needs outpatient follow-up with wound care and general surgery in 2 weeks Wound cultures results reviewed Abdominal pain Secondary to #1 Pain control Normocytic anemia Multifactorial including chronic illness and recent surgery Moderate PCM Thrombocytosis - reactive Hypokalemia-improved History Interval history: No new issues overnight. Hospitalist Physical - Constitutional Vitals: Temp Pulse Resp BP Pulse Ox 98.5 F 93 H 16 103/68 90 07/26/21 03:35 07/26/21 03:35 07/26/21 03:35 07/26/21 03:35 07/26/21 03:35 General appearance: Present: no acute distress - EENT Eyes: Present: PERRL, EOM intact ENT: hearing intact, clear oral mucosa, dentition normal - Neck Neck: Present: supple, normal ROM - Respiratory Respiratory effort: normal Respiratory: bilateral: CTA - Cardiovascular Rhythm: regular Heart Sounds: Present: S1 & S2. Absent: gallop, rub - Extremities Extremities: no ischemia, No edema, Full ROM - Abdominal General gastrointestinal: soft, non-tender, non-distended, normal bowel sounds - Integumentary Integumentary: Present: clear, warm, dry - Neurologic Neurologic: CNII-XII intact, moves all extremities Results - Labs CBC & Chem 7: 07/20/21 04:24 07/21/21 03:49 Labs: Laboratory Last Values WBC 8.4 K/mm3 (4.5-11.0) 07/20/21 04:24 RBC 3.06 M/mm3 (3.65-5.03) L 07/20/21 04:24 Hgb 8.6 gm/dl (10.1-14.3) L 07/20/21 04:24 Hct 27.6 % (30.3-42.9) L 07/20/21 04:24 MCV 90 fl (79-97) 07/20/21 04:24 MCH 28 pg (28-32) 07/20/21 04:24 MCHC 31 % (30-34) 07/20/21 04:24 RDW 14.7 % (13.2-15.2) 07/20/21 04:24 Plt Count 501 K/mm3 (140-440) H 07/20/21 04:24 Lymph % (Auto) 26.2 % (13.4-35.0) 07/16/21 04:13 [place] % (Auto) 10.3 % (0.0-7.3) H 07/16/21 04:13 Eos % (Auto) 4.5 % (0.0-4.3) H 07/16/21 04:13 Baso % (Auto) 0.5 % (0.0-1.8) 07/16/21 04:13 Lymph # (Auto) 1.8 K/mm3 (1.2-5.4) 07/16/21 04:13 [place] # (Auto) 0.7 K/mm3 (0.0-0.8) 07/16/21 04:13 Eos # (Auto) 0.3 K/mm3 (0.0-0.4) 07/16/21 04:13 Baso # (Auto) 0.0 K/mm3 (0.0-0.1) 07/16/21 04:13 Seg Neutrophils % 58.5 % (40.0-70.0) 07/16/21 04:13 Seg Neutrophils # 4.0 K/mm3 (1.8-7.7) 07/16/21 04:13 PT 14.6 Sec. (12.2-14.9) 07/15/21 05:24 INR 1.03 (0.87-1.13) 07/15/21 05:24 Sodium 135 mmol/L (137-145) L 07/21/21 03:49 Potassium 4.1 mmol/L (3.6-5.0) D 07/21/21 03:49 Chloride 98.8 mmol/L (98-107) 07/21/21 03:49 Carbon Dioxide 24 mmol/L (22-30) 07/21/21 03:49 Anion Gap 16 mmol/L 07/21/21 03:49 BUN 5 mg/dL (7-17) L 07/21/21 03:49 Creatinine 0.4 mg/dL (0.6-1.2) L 07/21/21 03:49 Estimated GFR > 60 ml/min 07/21/21 03:49 BUN/Creatinine Ratio 13 % 07/21/21 03:49 Glucose 110 mg/dL (65-100) H 07/21/21 03:49 POC Glucose 101 mg/dL (70-105) 07/23/21 12:00 Calcium 8.3 mg/dL (8.4-10.2) L 07/21/21 03:49 Total Bilirubin 0.30 mg/dL (0.1-1.2) 07/16/21 04:13 AST 9 units/L (5-40) 07/16/21 04:13 ALT 6 units/L (7-56) L 07/16/21 04:13 Alkaline Phosphatase 185 units/L (35-129) H 07/16/21 04:13 Total Protein 6.3 g/dL (6.3-8.2) 07/16/21 04:13 Albumin 1.9 g/dL (3.9-5) L 07/16/21 04:13 Albumin/Globulin Ratio 0.4 % 07/16/21 04:13 Nasal Screen MRSA (PCR) Negative (Negative) 07/16/21 04:38 [place]/IV: Voiding Method External Female Catheter Active Medications - Current Medications Current Medications: Generic Name Dose Route Start Last Admin Trade Name Freq PRN Reason Stop Dose Admin Acetaminophen 650 mg 07/15/21 05:11 07/26/21 00:48 Acetaminophen 325 Mg Tab PO 650 mg Q4H PRN Administration Pain MILD(1-3)/Fever >100.5/PAYNE Albuterol 2.5 mg 07/15/21 05:11 Albuterol 2.5 Mg/3 Ml Nebu IH Q4HRT PRN Shortness Of Breath Famotidine 20 mg 07/15/21 10:00 07/25/21 21:11 Famotidine 20 Mg/2 Ml Inj IV 20 mg BID SOILA Administration Heparin Sodium (Porcine) 5,000 unit 07/15/21 10:00 07/25/21 21:10 Heparin 5,000 Unit/1 Ml Vial SUB-Q 5,000 unit Q12HR SOILA Administration Hydromorphone HCl 0.5 mg 07/15/21 05:11 07/26/21 02:28 Hydromorphone 1 Mg/1 Ml Inj IV 0.5 mg Q3H PRN Administration Pain , Severe (7-10) Dextrose/Sodium Chloride 1,000 mls @ 100 mls/hr 07/15/21 06:00 07/26/21 03:55 D5/0.45ns IV 100 mls/hr DIRECT SOILA Administration Morphine Sulfate 2 mg 07/15/21 05:11 07/26/21 05:34 Morphine 2 Mg/1 Ml Inj IV 2 mg Q4H PRN Administration Pain, Moderate (4-6) Ondansetron HCl 4 mg 07/15/21 05:11 07/25/21 21:14 Ondansetron 4 Mg/2 Ml Inj IV 4 mg Q8H PRN Administration Nausea And Vomiting Sodium Chloride 10 ml 07/15/21 10:00 07/25/21 21:11 Sodium Chloride 0.9% 10 Ml Flush Syringe IV 10 ml BID SOILA Administration Sodium Chloride 10 ml 07/15/21 05:11 07/23/21 05:18 Sodium Chloride 0.9% 10 Ml Flush Syringe IV 10 ml PRN PRN Administration LINE FLUSH Sodium Hypochlorite 1 applic 07/20/21 10:00 07/25/21 21:13 Sodium Hypochlorite, Dakin's Full Strength (0.5%) 473 Ml Topical Soln TP 1 applicatio BID SOILA Administration Nutrition/Malnutrition Assess - Dietary Evaluation Nutrition/Malnutrition Findings: Nutrition Notes Start: 07/15/21 12:08 Freq: Status: Active Protocol: Document 07/23/21 15:25 JORGE (Rec: 07/23/21 15:54 JORGE [id number]) Nutrition Notes Initial or Follow up Reassessment Other Pertinent Diagnosis R-hemicolectomy/open wound, Normocytic anemia, PCM, Thrombocytosis. Current Diet Clear Liquids Diet (since B ). Labs/Tests 07/21: Na 135, BUN 5, Crea 0.4 , Glu 110, Ca 8.3. Pertinent Medications 07/23: D5ns 1,000 ml @ 100 ml/ hr, others nutritionally unremarkable. Height 5 ft 2 in Weight 89.1 kg [place] Body Weight (kg) 50.00 BMI 35.9 Weight Status Obese Subjective/Other Information RD consult for review on diet advancement. PO intake of meals is Fair (50 %). Percent of energy/protein needs met: Prescribed Clear Liquids Diet provides for energy/protein needs (590 Kcal/16 g) during LOS. Burn Absent Trauma Absent GI Symptoms Other Food Allergy No Skin Integrity/Comment Surgical abdominal wound Current % PO Fair (50-74%) Minimum of two criteria No #2 Nutrition Diagnosis Inadequate protein-energy intake Etiology (R) colectomy with end ileostomy. As Evidenced by Signs and Symptoms Fair PO intake of meals (50%). #1 Nutrition Diagnosis Altered GI function Etiology Abdominal abscess, peritonitis , (R) colectomy with end ileostomy. As Evidenced by Signs and Symptoms Surgery performed. Diagnosis Progress(for reassessment Continues documentation) Is patient on ventilator? No Is Patient Ambulatory and/or Out of Bed Yes REE-([facility]-ambulatory/OOB) [ 1936.025 NUTR.MSJOOB] Calculation Used for Recommendations [facility] Additional Notes Protein: 1.2-1.5 g/Kg; 60-75 g /day (from IBW + critical care ). Fluids: 1 ml/Kcal, or as per MD. Nutrition Intervention Change Diet Order: Continue Clear Liquids Diet as per MD; when pertinent, advance to Regular Diet. Add Supplement/Snack (indicate name/kcal 8 fl oz Ensure Clear; TID /protein ) Provides kCal: 720 Provides Protein (gm) 24 Goal #1 Maintain body weight within +/ -3% of current BWt during LOS. Goal #2 Reach and maintain acceptable chemistry lab values during LOS. Follow-Up By: 07/30/21 Additional Comments Continue monitoring food tolerance, %PO intake of meals , Hydration, and BM.
[2021-07-26] MEDS: HEPARIN 5,000 UNIT/1 ML VIAL SUB-Q SCH ×2 (09:02→21:33)
[2021-07-26] MEDS: FAMOTIDINE 20 MG/2 ML INJ IV SCH ×2 (09:02→21:32)
[2021-07-26] MEDS: SODIUM HYPOCHLORITE, DAKIN'S FULL STRENGTH (0.5%) 473 ML TOPICAL SOLN TP SCH ×2 (09:03→21:34)
[2021-07-27] MEDS: ACETAMINOPHEN 325 MG TAB PO PRN (00:35)
[2021-07-27] MEDS: HYDROmorphone 1 MG/1 ML INJ IV PRN ×5 (00:36→16:49)
[2021-07-27] MEDS: D5W/0.45% NACL 1,000 ML IV SCH (06:42)
[2021-07-27 08:15] LABS: Basophils # (Auto) 0.1 K/mm3 (0.0-0.1); Basophils % (Auto) 0.9 % (0.0-1.8); Eosinophils # (Auto) 0.4 K/mm3 (0.0-0.4); Eosinophils % (Auto) 5.6 % (0.0-4.3); Hematocrit 25.1 % (30.3-42.9); Hemoglobin 8.1 gm/dl (10.1-14.3); Lymphocytes % (Auto) 28.4 % (13.4-35.0); Mean Corpuscular HGB Conc 32 % (30-34); Mean Corpuscular Volume 88 fl (79-97); Monocytes # (Auto) 0.6 K/mm3 (0.0-0.8); Monocytes % (Auto) 8.4 % (0.0-7.3); Platelet Count 392 K/mm3 (140-440); Red Blood Count 2.86 M/mm3 (3.65-5.03); Red Cell Distribution Width 14.8 % (13.2-15.2)
[2021-07-27 08:30] LABS: Blood Urea Nitrogen 3 mg/dL (7-17); Calcium 8.2 mg/dL (8.4-10.2); Hemolysis Index 88
--- NOTE | 2021-07-27 08:32 | Progress Note ---
Assessment and Plan Assessment and plan: This is a 45 years old female with history of psychiatric problem/drug abuse was brought to the emergency room from [facility] because of abdominal pain. Abdominal pain moderate in intensity constant does not radiate aching generalized started since yesterday. Patient also complained of abdominal pain but denies fever, nausea or vomiting. Patient is right colectomy with end ileostomy and omentectomy by Dr. Ruben Colón on 06/29/2021 CT scan of the abdomen done in other hospital shows postsurgical changes from previous bowel resection there is a 9.1 x 6.1 cm fluid collection near the a nastomosis in the right hemiabdomen extending to the inferior liver margin and gallbladder fossa concerning for abscess. There is pericholecystic fluid and AN area of hypoattenuation in the inferior margin of the liver which could be a developing abscess currently there is no drainable intrahepatic abscess. A few scattered foci of free air in the abdomen this could be related to the postsurgical changes although an anastomotic leak cannot be excluded. There is additional loculated fluid collection more inferiorly in the anterior pelvis surgical consult patient is recommended We will going to admit the patient we will put the patient on Zosyn 4.5 g IV every 8 hours and clindamycin 600 mg IV every [address] Ruben Colón for evaluation. All labs are pending 07/16: IR consulted, continue current medications, Fitness Manager consult. Continue current medications and pain control. Replace potassium 07/17: Patient seen and examined clinically stable at this time no new co mplaint. Continue supportive care. Awaiting IR intervention. Anticipate discharge in a.m. if cultures results are available 07/18: Patient seen and examined tolerating clear liquid diet which is re commendation by the surgeon. calender worker helper has been consulted to assist with discharge planning and outpatient follow-up considering patient's financial status 07/19 patient is awake and alert and complains of abdominal pain and states that it is 9/10 on the pain scale. She was discharged yesterday. Discussed with case aide and RN Apparently has issues with discharge as family is refusing to take care of her. Also discussed with general surgery Dr. Miranda 07/20 no acute events overnight. She is awake and alert. Complains of abdominal pain. Lab results reviewed. Discussed with patient's stepfather in person about discharge. Does not look like he is willing to take care of her. investment fund manager was present during my discussion 07/21 no acute events overnight. Complains of abdominal pain. Lab results reviewed. Waiting for disposition 07/22: Patient seen and examined, continue supportive care, Per surgeon wound cannot be closed due dehiscence. Case management working on placment. Patient will follow outpatient with surgeon. 07/23: Patient seen and examined, continue supportive care, Per surgeon wound cannot be closed due to dehiscence. Case management working on placement. Patient will follow outpatient with surgeon. 07/24: Patient seen and examined, continue supportive care, Per surgeon wound cannot be closed due to dehiscence. Case management working on placement. Patient will follow outpatient with surgeon. 07/25: Patient awaiting placement. Continue wound care per wound team. 07/26: Patient seen and examined, continue supportive care, Per surgeon wound cannot be closed due to dehiscence. Case management working on placement. Patient will follow outpatient with surgeon. Psychiatry also evaluated the patient and agree with need for placement. No recommendations for acute inpatient psychiatric treatment 07/27: Patient with fever 100.6. Check blood cultures, urinalysis and chest x- ray. Patient previously had IR drainage of what was felt to be a seroma. We will continue to monitor temperature curve Per surgery Pt can be discharged ONCE social service arrangements are made. Pt has an abdominal wound and ileostomy. Arrangements for care of these MUST be made before discharge. She is also self pay and a meth addict. Per infectious disease No fever. Underwent IR drainage, felt to be seroma with slight hematogenous component, no organisms seen on Gram stain. Assessment and plan History of abdominal abscess/peritonitis Status post right hemicolectomy /Colostomy and has open wound Patient also has a drain and per discussion with general surgery patient can go home with the drain Needs outpatient follow-up with wound care and general surgery in 2 weeks Wound cultures results reviewed Abdominal pain Secondary to #1 Pain control Normocytic anemia Multifactorial including chronic illness and recent surgery Moderate PCM Thrombocytosis - reactive Hypokalemia-improved History Interval history: No new issues overnight. Hospitalist Physical - Constitutional Vitals: Temp Pulse Resp BP Pulse Ox 98.8 F 99 H 16 103/70 95 07/27/21 03:30 07/27/21 03:30 07/27/21 03:30 07/27/21 03:30 07/27/21 03:30 General appearance: Present: no acute distress - EENT Eyes: Present: PERRL, EOM intact ENT: hearing intact, clear oral mucosa, dentition normal - Neck Neck: Present: supple, normal ROM - Respiratory Respiratory effort: normal Respiratory: bilateral: CTA - Cardiovascular Rhythm: regular Heart Sounds: Present: S1 & S2. Absent: gallop, rub - Extremities Extremities: no ischemia, No edema, Full ROM - Abdominal General gastrointestinal: soft, non-tender, non-distended, normal bowel sounds - Integumentary Integumentary: Present: clear, warm, dry - Neurologic Neurologic: CNII-XII intact, moves all extremities Results - Labs CBC & Chem 7: 07/27/21 04:00 07/21/21 03:49 Labs: Laboratory Last Values WBC 7.2 K/mm3 (4.5-11.0) 07/27/21 04:00 RBC 2.86 M/mm3 (3.65-5.03) L 07/27/21 04:00 Hgb 8.1 gm/dl (10.1-14.3) L 07/27/21 04:00 Hct 25.1 % (30.3-42.9) L 07/27/21 04:00 MCV 88 fl (79-97) 07/27/21 04:00 MCH 28 pg (28-32) 07/27/21 04:00 MCHC 32 % (30-34) 07/27/21 04:00 RDW 14.8 % (13.2-15.2) 07/27/21 04:00 Plt Count 392 K/mm3 (140-440) 07/27/21 04:00 Lymph % (Auto) 28.4 % (13.4-35.0) 07/27/21 04:00 [place] % (Auto) 8.4 % (0.0-7.3) H 07/27/21 04:00 Eos % (Auto) 5.6 % (0.0-4.3) H 07/27/21 04:00 Baso % (Auto) 0.9 % (0.0-1.8) 07/27/21 04:00 Lymph # (Auto) 2.0 K/mm3 (1.2-5.4) 07/27/21 04:00 [place] # (Auto) 0.6 K/mm3 (0.0-0.8) 07/27/21 04:00 Eos # (Auto) 0.4 K/mm3 (0.0-0.4) 07/27/21 04:00 Baso # (Auto) 0.1 K/mm3 (0.0-0.1) 07/27/21 04:00 Seg Neutrophils % 56.7 % (40.0-70.0) 07/27/21 04:00 Seg Neutrophils # 4.1 K/mm3 (1.8-7.7) 07/27/21 04:00 PT 14.6 Sec. (12.2-14.9) 07/15/21 05:24 INR 1.03 (0.87-1.13) 07/15/21 05:24 Sodium 135 mmol/L (137-145) L 07/21/21 03:49 Potassium 4.1 mmol/L (3.6-5.0) D 07/21/21 03:49 Chloride 98.8 mmol/L (98-107) 07/21/21 03:49 Carbon Dioxide 24 mmol/L (22-30) 07/21/21 03:49 Anion Gap 16 mmol/L 07/21/21 03:49 BUN 5 mg/dL (7-17) L 07/21/21 03:49 Creatinine 0.4 mg/dL (0.6-1.2) L 07/21/21 03:49 Estimated GFR > 60 ml/min 07/21/21 03:49 BUN/Creatinine Ratio 13 % 07/21/21 03:49 Glucose 110 mg/dL (65-100) H 07/21/21 03:49 POC Glucose 101 mg/dL (70-105) 07/23/21 12:00 Calcium 8.3 mg/dL (8.4-10.2) L 07/21/21 03:49 Total Bilirubin 0.30 mg/dL (0.1-1.2) 07/16/21 04:13 AST 9 units/L (5-40) 07/16/21 04:13 ALT 6 units/L (7-56) L 07/16/21 04:13 Alkaline Phosphatase 185 units/L (35-129) H 07/16/21 04:13 Total Protein 6.3 g/dL (6.3-8.2) 07/16/21 04:13 Albumin 1.9 g/dL (3.9-5) L 07/16/21 04:13 Albumin/Globulin Ratio 0.4 % 07/16/21 04:13 Nasal Screen MRSA (PCR) Negative (Negative) 07/16/21 04:38 Shel[place]/IV: Voiding Method External Female Catheter Active Medications - Current Medications Current Medications: Generic Name Dose Route Start Last Admin Trade Name Freq PRN Reason Stop Dose Admin Acetaminophen 650 mg 07/15/21 05:11 07/27/21 00:35 Acetaminophen 325 Mg Tab PO 650 mg Q4H PRN Administration Pain MILD(1-3)/Fever >100.5/PAYNE Albuterol 2.5 mg 07/15/21 05:11 Albuterol 2.5 Mg/3 Ml Nebu IH Q4HRT PRN Shortness Of Breath Famotidine 20 mg 07/15/21 10:00 07/26/21 21:32 Famotidine 20 Mg/2 Ml Inj IV 20 mg BID SOILA Administration Heparin Sodium (Porcine) 5,000 unit 07/15/21 10:00 07/26/21 21:33 Heparin 5,000 Unit/1 Ml Vial SUB-Q 5,000 unit Q12HR SOILA Administration Hydromorphone HCl 0.5 mg 07/15/21 05:11 07/27/21 04:10 Hydromorphone 1 Mg/1 Ml Inj IV 0.5 mg Q3H PRN Administration Pain , Severe (7-10) Dextrose/Sodium Chloride 1,000 mls @ 100 mls/hr 07/15/21 06:00 07/27/21 06:42 D5/0.45ns IV 100 mls/hr DIRECT SOILA Administration Morphine Sulfate 2 mg 07/15/21 05:11 07/26/21 05:34 Morphine 2 Mg/1 Ml Inj IV 2 mg Q4H PRN Administration Pain, Moderate (4-6) Ondansetron HCl 4 mg 07/15/21 05:11 07/25/21 21:14 Ondansetron 4 Mg/2 Ml Inj IV 4 mg Q8H PRN Administration Nausea And Vomiting Sodium Chloride 10 ml 07/15/21 10:00 07/26/21 21:32 Sodium Chloride 0.9% 10 Ml Flush Syringe IV 10 ml BID SOILA Administration Sodium Chloride 10 ml 07/15/21 05:11 07/27/21 04:12 Sodium Chloride 0.9% 10 Ml Flush Syringe IV 10 ml PRN PRN Administration LINE FLUSH Sodium Hypochlorite 1 applic 07/20/21 10:00 07/26/21 21:34 Sodium Hypochlorite, Dakin's Full Strength (0.5%) 473 Ml Topical Soln TP 1 applicatio BID SOILA Administration Nutrition/Malnutrition Assess - Dietary Evaluation Nutrition/Malnutrition Findings: Nutrition Notes Start: 07/15/21 12:08 Freq: Status: Active Protocol: Document 07/23/21 15:25 JORGE (Rec: 07/23/21 15:54 JORGE [id number]) Nutrition Notes Initial or Follow up Reassessment Other Pertinent Diagnosis R-hemicolectomy/open wound, Normocytic anemia, PCM, Thrombocytosis. Current Diet Clear Liquids Diet (since B ). Labs/Tests 07/21: Na 135, BUN 5, Crea 0.4 , Glu 110, Ca 8.3. Pertinent Medications 07/23: D5ns 1,000 ml @ 100 ml/ hr, others nutritionally unremarkable. Height 5 ft 2 in Weight 89.1 kg [place] Body Weight (kg) 50.00 BMI 35.9 Weight Status Obese Subjective/Other Information RD consult for review on diet advancement. PO intake of meals is Fair (50 %). Percent of energy/protein needs met: Prescribed Clear Liquids Diet provides for energy/protein needs (590 Kcal/16 g) during LOS. Burn Absent Trauma Absent GI Symptoms Other Food Allergy No Skin Integrity/Comment Surgical abdominal wound Current % PO Fair (50-74%) Minimum of two criteria No #2 Nutrition Diagnosis Inadequate protein-energy intake Etiology (R) colectomy with end ileostomy. As Evidenced by Signs and Symptoms Fair PO intake of meals (50%). #1 Nutrition Diagnosis Altered GI function Etiology Abdominal abscess, peritonitis , (R) colectomy with end ileostomy. As Evidenced by Signs and Symptoms Surgery performed. Diagnosis Progress(for reassessment Continues documentation) Is patient on ventilator? No Is Patient Ambulatory and/or Out of Bed Yes REE-([facility]-ambulatory/OOB) [ 1936.025 NUTR.MSJOOB] Calculation Used for Recommendations [place] Additional Notes Protein: 1.2-1.5 g/Kg; 60-75 g /day (from IBW + critical care ). Fluids: 1 ml/Kcal, or as per MD. Nutrition Intervention Change Diet Order: Continue Clear Liquids Diet as per MD; when pertinent, advance to Regular Diet. Add Supplement/Snack (indicate name/kcal 8 fl oz Ensure Clear; TID /protein ) Provides kCal: 720 Provides Protein (gm) 24 Goal #1 Maintain body weight within +/ -3% of current BWt during LOS. Goal #2 Reach and maintain acceptable chemistry lab values during LOS. Follow-Up By: 07/30/21 Additional Comments Continue monitoring food tolerance, %PO intake of meals , Hydration, and BM.
[2021-07-27 08:35] LABS: BUN/Creatinine Ratio 10
[2021-07-27] MEDS: HEPARIN 5,000 UNIT/1 ML VIAL SUB-Q SCH ×2 (09:58→22:07)
[2021-07-27] MEDS: FAMOTIDINE 20 MG/2 ML INJ IV SCH ×2 (09:58→22:05)
[2021-07-27] MEDS: SODIUM HYPOCHLORITE, DAKIN'S FULL STRENGTH (0.5%) 473 ML TOPICAL SOLN TP SCH ×2 (10:02→22:05)
--- NOTE | 2021-07-27 10:07 | XRay Report ---
CHEST 1 VIEW INDICATION / CLINICAL INFORMATION: fever. COMPARISON: 07/07/2021 FINDINGS: SUPPORT DEVICES: None. HEART / MEDIASTINUM: No significant abnormality. LUNGS / PLEURA: Streaky bibasilar airspace opacities, likely reflecting subsegmental atelectasis. Christina pect small bilateral pleural effusions. No pneumothorax. ADDITIONAL FINDINGS: No significant additional findings. IMPRESSION: 1. Small bilateral pleural effusions with bibasilar airspace disease, likely reflecting atelectasis. Signer Name: Inocente Euceda MD Signed: 07/27/2021 10:02 AM Workstation Name: [id number]
--- NOTE | 2021-07-27 16:05 | Progress Note ---
Assessment and Plan - Patient Problems (1) Abdominal abscess Current Visit: Yes Status: Acute Plan to address problem: 1) Doing well. Awaiting placement. 2) Can f/u in the [facility]. Subjective Date of service: 07/27/21 Patient Reports: Positive: no new complaints, feels better Objective Vital Signs - 12hr 07/27/21 07/27/21 07/27/21 08:00 08:18 10:00 Temperature 97.5 F L Pulse Rate 87 Pulse Rate [ 84 Radial] Respiratory 18 18 Rate Blood Pressure 101/64 [Right] O2 Sat by Pulse 96 93 96 Oximetry - Abdomen soft, not tender, bowel sounds normal, not rebound, not guarding, other (Right sided drain removed (No growth after 3 days). Wound examined and is fairly clean.) - Labs 07/27/21 04:00 07/27/21 04:00 Diabetes panel 07/27/21 Range/Units 04:00 Sodium 133 L (137-145) mmol/L Potassium 3.6 (3.6-5.0) mmol/L Chloride 97.7 L (98-107) mmol/L Carbon Dioxide 20 L (22-30) mmol/L BUN 3 L (7-17) mg/dL Creatinine 0.3 L (0.6-1.2) mg/dL Glucose 100 (65-100) mg/dL Calcium 8.2 L (8.4-10.2) mg/dL Calcium panel 07/27/21 Range/Units 04:00 Calcium 8.2 L (8.4-10.2) mg/dL Pituitary panel 07/27/21 Range/Units 04:00 Sodium 133 L (137-145) mmol/L Potassium 3.6 (3.6-5.0) mmol/L Chloride 97.7 L (98-107) mmol/L Carbon Dioxide 20 L (22-30) mmol/L BUN 3 L (7-17) mg/dL Creatinine 0.3 L (0.6-1.2) mg/dL Glucose 100 (65-100) mg/dL Calcium 8.2 L (8.4-10.2) mg/dL Adrenal panel 07/27/21 Range/Units 04:00 Sodium 133 L (137-145) mmol/L Potassium 3.6 (3.6-5.0) mmol/L Chloride 97.7 L (98-107) mmol/L Carbon Dioxide 20 L (22-30) mmol/L BUN 3 L (7-17) mg/dL Creatinine 0.3 L (0.6-1.2) mg/dL Glucose 100 (65-100) mg/dL Calcium 8.2 L (8.4-10.2) mg/dL
[2021-07-27 17:40] LABS: Bacteria,Urine 1+ /HPF (Negative); Bilirubin,Urine NEG (Negative); Blood,Urine SM (Negative); Color,Urine Yellow (Yellow); Mucus,Urine FEW /HPF; Protein,Urine <15 mg/dL mg/dL (Negative); Urobilinogen,Urine < 2.0 mg/dL (<2.0)
[2021-07-27 17:42] LABS: WBC,Urine > 182.0 /HPF (0.0-6.0)
[2021-07-27] MEDS: MORPHINE 2 MG/1 ML INJ IV PRN (22:07)
[2021-07-28] MEDS: HYDROmorphone 1 MG/1 ML INJ IV PRN ×7 (01:02→22:06)
[2021-07-28 07:38] LABS: Basophils # (Auto) 0.1 K/mm3 (0.0-0.1); Basophils % (Auto) 0.9 % (0.0-1.8); Eosinophils # (Auto) 0.3 K/mm3 (0.0-0.4); Eosinophils % (Auto) 4.7 % (0.0-4.3); Hemoglobin 7.9 gm/dl (10.1-14.3); Lymphocytes # (Auto) 1.8 K/mm3 (1.2-5.4); Lymphocytes % (Auto) 26.6 % (13.4-35.0); Mean Corpuscular HGB Conc 32 % (30-34); Mean Corpuscular Volume 87 fl (79-97); Monocytes # (Auto) 0.6 K/mm3 (0.0-0.8); Monocytes % (Auto) 8.6 % (0.0-7.3); Platelet Count 409 K/mm3 (140-440); Red Blood Count 2.88 M/mm3 (3.65-5.03); Red Cell Distribution Width 14.8 % (13.2-15.2)
[2021-07-28 07:59] LABS: Blood Urea Nitrogen 3 mg/dL (7-17); Calcium 8.1 mg/dL (8.4-10.2); Hemolysis Index 9
[2021-07-28 08:03] LABS: BUN/Creatinine Ratio 6
--- NOTE | 2021-07-28 09:19 | Progress Note ---
Assessment and Plan Assessment and plan: This is a 45 years old female with history of psychiatric problem/drug abuse was brought to the emergency room from [facility] because of abdominal pain. Abdominal pain moderate in intensity constant does not radiate aching generalized started since yesterday. Patient also complained of abdominal pain but denies fever, nausea or vomiting. Patient is right colectomy with end ileostomy and omentectomy by Dr. Ruben Colón on 06/29/2021 CT scan of the abdomen done in other hospital shows postsurgical changes from previous bowel resection there is a 9.1 x 6.1 cm fluid collection near the a nastomosis in the right hemiabdomen extending to the inferior liver margin and gallbladder fossa concerning for abscess. There is pericholecystic fluid and AN area of hypoattenuation in the inferior margin of the liver which could be a developing abscess currently there is no drainable intrahepatic abscess. A few scattered foci of free air in the abdomen this could be related to the postsurgical changes although an anastomotic leak cannot be excluded. There is additional loculated fluid collection more inferiorly in the anterior pelvis surgical consult patient is recommended The patient was treated with Zosyn 4.5 g IV every 8 hours and clindamycin 600 mg IV every 8 hours. Surgery was consulted with Dr. Miranda Assessment and plan New UTI History of abdominal abscess/peritonitis Status post right hemicolectomy /Colostomy and has open wound Patient also has a drain and per discussion with general surgery patient can go home with the drain Needs outpatient follow-up with wound care and general surgery in 2 weeks Wound cultures results reviewed Abdominal pain Secondary to #1 Pain control Normocytic anemia Multifactorial including chronic illness and recent surgery Moderate PCM Thrombocytosis - reactive Hypokalemia-improved Hospital course 07/16: IR consulted, continue current medications, Cross Cut Saw Operator consult. Continue current medications and pain control. Replace potassium 07/17: Patient seen and examined clinically stable at this time no new complaint. Continue supportive care. Awaiting IR intervention. Anticipate discharge in a.m. if cultures results are available 07/18: Patient seen and examined tolerating clear liquid diet which is recommendation by the surgeon. board worker has been consulted to assist with discharge planning and outpatient follow-up considering patient's financial status 07/19 patient is awake and alert and complains of abdominal pain and states that it is 9/10 on the pain scale. She was discharged yesterday. Discussed with leather case finisher and RN Apparently has issues with discharge as family is refusing to take care of her. Also discussed with general surgery Dr. Miranda 07/20 no acute events overnight. She is awake and alert. Complains of abdominal pain. Lab results reviewed. Discussed with patient's stepfather in person about discharge. Does not look like he is willing to take care of her. computer security manager was present during my discussion 07/21 no acute events overnight. Complains of abdominal pain. Lab results reviewed. Waiting for disposition 07/22: Patient seen and examined, continue supportive care, Per surgeon wound cannot be closed due dehiscence. Case management working on placment. Patient will follow outpatient with surgeon. 07/23: Patient seen and examined, continue supportive care, Per surgeon wound cannot be closed due to dehiscence. Case management working on placement. Patient will follow outpatient with surgeon. 07/24: Patient seen and examined, continue supportive care, Per surgeon wound cannot be closed due to dehiscence. Case management working on placement. Patient will follow outpatient with surgeon. 07/25: Patient awaiting placement. Continue wound care per wound team. 07/26: Patient seen and examined, continue supportive care, Per surgeon wound cannot be closed due to dehiscence. Case management working on placement. Patient will follow outpatient with surgeon. Psychiatry also evaluated the alexa ent and agree with need for placement. No recommendations for acute inpatient psychiatric treatment 07/27: Patient with fever 100.6. Check blood cultures, urinalysis and chest x- ray. Patient previously had IR drainage of what was felt to be a seroma. We will continue to monitor temperature curve 07/28: We will follow-up blood and urine cultures. Urinalysis does reveal UTI. Start antibiotics of Rocephin. Per surgeon wound cannot be closed due to dehiscence. Case management working on placement. Patient will follow outpatient with surgeon. Psychiatry also evaluated the patient and agree with need for placement. No recommendations for acute inpatient psychiatric treatment Per surgery Pt can be discharged ONCE social service arrangements are made. Pt has an abdominal wound and ileostomy. Arrangements for care of these MUST be made before discharge. She is also self pay and a meth addict. Per infectious disease Underwent IR drainage, felt to be seroma with slight hematogenous component, no organisms seen on Gram stain. A History Interval history: No new issues overnight. Hospitalist Physical - Constitutional Vitals: Temp Pulse Resp BP Pulse Ox 98.5 F 95 H 17 96/64 90 07/28/21 03:42 07/28/21 03:42 07/28/21 03:42 07/28/21 03:42 07/28/21 03:42 General appearance: Present: no acute distress - EENT Eyes: Present: PERRL, EOM intact ENT: hearing intact, clear oral mucosa, dentition normal - Neck Neck: Present: supple, normal ROM - Respiratory Respiratory effort: normal Respiratory: bilateral: CTA - Cardiovascular Rhythm: regular Heart Sounds: Present: S1 & S2. Absent: gallop, rub - Extremities Extremities: no ischemia, No edema, Full ROM - Abdominal General gastrointestinal: soft, non-tender, non-distended, normal bowel sounds - Integumentary Integumentary: Present: clear, warm, dry - Neurologic Neurologic: CNII-XII intact, moves all extremities Results - Labs CBC & Chem 7: 07/28/21 06:48 07/28/21 06:48 Labs: Laboratory Last Values WBC 6.9 K/mm3 (4.5-11.0) 07/28/21 06:48 RBC 2.88 M/mm3 (3.65-5.03) L 07/28/21 06:48 Hgb 7.9 gm/dl (10.1-14.3) L 07/28/21 06:48 Hct 25.0 % (30.3-42.9) L 07/28/21 06:48 MCV 87 fl (79-97) 07/28/21 06:48 MCH 28 pg (28-32) 07/28/21 06:48 MCHC 32 % (30-34) 07/28/21 06:48 RDW 14.8 % (13.2-15.2) 07/28/21 06:48 Plt Count 409 K/mm3 (140-440) 07/28/21 06:48 Lymph % (Auto) 26.6 % (13.4-35.0) 07/28/21 06:48 [place] % (Auto) 8.6 % (0.0-7.3) H 07/28/21 06:48 Eos % (Auto) 4.7 % (0.0-4.3) H 07/28/21 06:48 Baso % (Auto) 0.9 % (0.0-1.8) 07/28/21 06:48 Lymph # (Auto) 1.8 K/mm3 (1.2-5.4) 07/28/21 06:48 [place] # (Auto) 0.6 K/mm3 (0.0-0.8) 07/28/21 06:48 Eos # (Auto) 0.3 K/mm3 (0.0-0.4) 07/28/21 06:48 Baso # (Auto) 0.1 K/mm3 (0.0-0.1) 07/28/21 06:48 Seg Neutrophils % 59.2 % (40.0-70.0) 07/28/21 06:48 Seg Neutrophils # 4.1 K/mm3 (1.8-7.7) 07/28/21 06:48 PT 14.6 Sec. (12.2-14.9) 07/15/21 05:24 INR 1.03 (0.87-1.13) 07/15/21 05:24 Sodium 133 mmol/L (137-145) L 07/28/21 06:48 Potassium 3.4 mmol/L (3.6-5.0) L 07/28/21 06:48 Chloride 97.1 mmol/L (98-107) L 07/28/21 06:48 Carbon Dioxide 24 mmol/L (22-30) 07/28/21 06:48 Anion Gap 15 mmol/L 07/28/21 06:48 BUN 3 mg/dL (7-17) L 07/28/21 06:48 Creatinine 0.5 mg/dL (0.6-1.2) L D 07/28/21 06:48 Estimated GFR > 60 ml/min 07/28/21 06:48 BUN/Creatinine Ratio 6 % 07/28/21 06:48 Glucose 107 mg/dL (65-100) H 07/28/21 06:48 POC Glucose 101 mg/dL (70-105) 07/23/21 12:00 Calcium 8.1 mg/dL (8.4-10.2) L 07/28/21 06:48 Total Bilirubin 0.30 mg/dL (0.1-1.2) 07/16/21 04:13 AST 9 units/L (5-40) 07/16/21 04:13 ALT 6 units/L (7-56) L 07/16/21 04:13 Alkaline Phosphatase 185 units/L (35-129) H 07/16/21 04:13 Total Protein 6.3 g/dL (6.3-8.2) 07/16/21 04:13 Albumin 1.9 g/dL (3.9-5) L 07/16/21 04:13 Albumin/Globulin Ratio 0.4 % 07/16/21 04:13 Urine Color Yellow (Yellow) 07/27/21 16:55 Urine Turbidity Cloudy (Clear) 07/27/21 16:55 Urine pH 5.0 (5.0-7.0) 07/27/21 16:55 Ur Specific [place] 1.011 (1.003-1.030) 07/27/21 16:55 Urine Protein <15 mg/dl mg/dL (Negative) 07/27/21 16:55 Urine Glucose (UA) Neg mg/dL (Negative) 07/27/21 16:55 Urine Ketones Neg mg/dL (Negative) 07/27/21 16:55 Urine Blood Sm (Negative) 07/27/21 16:55 Urine Nitrite Pos (Negative) 07/27/21 16:55 Urine Bilirubin Neg (Negative) 07/27/21 16:55 Urine Urobilinogen < 2.0 mg/dL (<2.0) 07/27/21 16:55 Ur Leukocyte Esterase Lg (Negative) 07/27/21 16:55 Urine WBC (Auto) > 182.0 /HPF (0.0-6.0) H 07/27/21 16:55 Urine RBC (Auto) 14.0 /HPF (0.0-6.0) 07/27/21 16:55 U Epithel Cells (Auto) 6.0 /HPF (0-13.0) 07/27/21 16:55 Urine Bacteria (Auto) 1+ /HPF (Negative) 07/27/21 16:55 Urine Mucus Few /HPF 07/27/21 16:55 Urine Yeast (Budding) 1+ /HPF 07/27/21 16:55 Nasal Screen MRSA (PCR) Negative (Negative) 07/16/21 04:38 Microbiology: Microbiology 07/27/21 13:54 Peripheral/Venous Blood Culture - Preliminary Culture in Progress 07/27/21 13:37 Peripheral/Venous Blood Culture - Preliminary Culture in Progress [place]/IV: Voiding Method External Female Catheter Active Medications - Current Medications Current Medications: Generic Name Dose Route Start Last Admin Trade Name Freq PRN Reason Stop Dose Admin Acetaminophen 650 mg 07/15/21 05:11 07/27/21 00:35 Acetaminophen 325 Mg Tab PO 650 mg Q4H PRN Administration Pain MILD(1-3)/Fever >100.5/PAYNE Albuterol 2.5 mg 07/15/21 05:11 Albuterol 2.5 Mg/3 Ml Nebu IH Q4HRT PRN Shortness Of Breath Famotidine 20 mg 07/15/21 10:00 07/27/21 22:05 Famotidine 20 Mg/2 Ml Inj IV 20 mg BID SOILA Administration Heparin Sodium (Porcine) 5,000 unit 07/15/21 10:00 07/27/21 22:07 Heparin 5,000 Unit/1 Ml Vial SUB-Q 5,000 unit Q12HR SOILA Administration Hydromorphone HCl 0.5 mg 07/15/21 05:11 07/28/21 05:16 Hydromorphone 1 Mg/1 Ml Inj IV 0.5 mg Q3H PRN Administration Pain , Severe (7-10) Dextrose/Sodium Chloride 1,000 mls @ 100 mls/hr 07/15/21 06:00 07/27/21 06:42 D5/0.45ns IV 100 mls/hr DIRECT SOILA Administration Morphine Sulfate 2 mg 07/15/21 05:11 07/27/21 22:07 Morphine 2 Mg/1 Ml Inj IV 2 mg Q4H PRN Administration Pain, Moderate (4-6) Ondansetron HCl 4 mg 07/15/21 05:11 07/25/21 21:14 Ondansetron 4 Mg/2 Ml Inj IV 4 mg Q8H PRN Administration Nausea And Vomiting Sodium Chloride 10 ml 07/15/21 10:00 07/27/21 22:06 Sodium Chloride 0.9% 10 Ml Flush Syringe IV 10 ml BID SOILA Administration Sodium Chloride 10 ml 07/15/21 05:11 07/27/21 04:12 Sodium Chloride 0.9% 10 Ml Flush Syringe IV 10 ml PRN PRN Administration LINE FLUSH Sodium Hypochlorite 1 applic 07/20/21 10:00 07/27/21 22:05 Sodium Hypochlorite, [place]'s Full Strength (0.5%) 473 Ml Topical Soln TP 1 applicatio BID SOILA Administration Nutrition/Malnutrition Assess - Dietary Evaluation Nutrition/Malnutrition Findings: Nutrition Notes Start: 07/15/21 12:08 Freq: Status: Active Protocol: Document 07/23/21 15:25 JORGE (Rec: 07/23/21 15:54 JORGE [id number]) Nutrition Notes Initial or Follow up Reassessment Other Pertinent Diagnosis R-hemicolectomy/open wound, Normocytic anemia, PCM, Thrombocytosis. Current Diet Clear Liquids Diet (since B ). Labs/Tests 07/21: Na 135, BUN 5, Crea 0.4 , Glu 110, Ca 8.3. Pertinent Medications 07/23: D5ns 1,000 ml @ 100 ml/ hr, others nutritionally unremarkable. Height 5 ft 2 in Weight 89.1 kg [place] Body Weight (kg) 50.00 BMI 35.9 Weight Status Obese Subjective/Other Information RD consult for review on diet advancement. PO intake of meals is Fair (50 %). Percent of energy/protein needs met: Prescribed Clear Liquids Diet provides for energy/protein needs (590 Kcal/16 g) during LOS. Burn Absent Trauma Absent GI Symptoms Other Food Allergy No Skin Integrity/Comment Surgical abdominal wound Current % PO Fair (50-74%) Minimum of two criteria No #2 Nutrition Diagnosis Inadequate protein-energy intake Etiology (R) colectomy with end ileostomy. As Evidenced by Signs and Symptoms Fair PO intake of meals (50%). #1 Nutrition Diagnosis Altered GI function Etiology Abdominal abscess, peritonitis , (R) colectomy with end ileostomy. As Evidenced by Signs and Symptoms Surgery performed. Diagnosis Progress(for reassessment Continues documentation) Is patient on ventilator? No Is Patient Ambulatory and/or Out of Bed Yes REE-([place]-St. Jeor-ambulatory/OOB) [ 1936.025 [id number]] Calculation Used for Recommendations [place] Jeor Additional Notes Protein: 1.2-1.5 g/Kg; 60-75 g /day (from IBW + critical care ). Fluids: 1 ml/Kcal, or as per MD. Nutrition Intervention Change Diet Order: Continue Clear Liquids Diet as per MD; when pertinent, advance to Regular Diet. Add Supplement/Snack (indicate name/kcal 8 fl oz Ensure Clear; TID /protein ) Provides kCal: 720 Provides Protein (gm) 24 Goal #1 Maintain body weight within +/ -3% of current BWt during LOS. Goal #2 Reach and maintain acceptable chemistry lab values during LOS. Follow-Up By: 07/30/21 Additional Comments Continue monitoring food tolerance, %PO intake of meals , Hydration, and BM.
[2021-07-28] MEDS: cefTRIAXone/NS 1 GM/50 ML 1 GM/50 ML BAG IV SCH (09:44)
[2021-07-28] MEDS: D5W/0.45% NACL 1,000 ML IV SCH ×2 (09:50→22:16)
[2021-07-28] MEDS: FAMOTIDINE 20 MG/2 ML INJ IV SCH ×2 (09:50→22:05)
[2021-07-28] MEDS: HEPARIN 5,000 UNIT/1 ML VIAL SUB-Q SCH ×2 (09:51→22:06)
[2021-07-28] MEDS: SODIUM HYPOCHLORITE, DAKIN'S FULL STRENGTH (0.5%) 473 ML TOPICAL SOLN TP SCH ×2 (16:08→22:13)
[2021-07-29] MEDS: HYDROmorphone 1 MG/1 ML INJ IV PRN ×7 (01:22→21:20)
--- NOTE | 2021-07-29 09:31 | Progress Note ---
Assessment and Plan Assessment and plan: This is a 45 years old female with history of psychiatric problem/drug abuse was brought to the emergency room from [facility] because of abdominal pain. Abdominal pain moderate in intensity constant does not radiate aching generalized started since yesterday. Patient also complained of abdominal pain but denies fever, nausea or vomiting. Patient is right colectomy with end ileostomy and omentectomy by Dr. Ruben Colón on 06/29/2021 CT scan of the abdomen done in other hospital shows postsurgical changes from previous bowel resection there is a 9.1 x 6.1 cm fluid collection near the an astomosis in the right hemiabdomen extending to the inferior liver margin and gallbladder fossa concerning for abscess. There is pericholecystic fluid and AN area of hypoattenuation in the inferior margin of the liver which could be a developing abscess currently there is no drainable intrahepatic abscess. A few scattered foci of free air in the abdomen this could be related to the postsurgical changes although an anastomotic leak cannot be excluded. There is additional loculated fluid collection more inferiorly in the anterior pelvis surgical consult patient is recommended The patient was treated with Zosyn 4.5 g IV every 8 hours and clindamycin 600 mg IV every 8 hours. Surgery was consulted with Dr. Miarnda Assessment and plan New UTI; gram-negative rods Continue Rocephin, follow culture sensitivities, supportive care History of abdominal abscess/peritonitis Status post right hemicolectomy /Colostomy and has open wound Patient also has a drain and per discussion with general surgery patient can go home with the drain Needs outpatient follow-up with wound care and general surgery in 2 weeks Wound cultures results reviewed Abdominal pain Secondary to abdominal abscess/peritonitis Pain control Normocytic anemia Multifactorial including chronic illness and recent surgery Moderate PCM Thrombocytosis - reactive Hypokalemia-improved. Continue current management DC planning per case management, possible placement with outpatient wound care Plan of care reviewed with the patient and her nurse as well as the case management Hospital course 07/16: IR consulted, continue current medications, Dust Box Tender consult. Continue current medications and pain control. Replace potassium 07/17: Patient seen and examined clinically stable at this time no new complaint. Continue supportive care. Awaiting IR intervention. Anticipate discharge in a.m. if cultures results are available 07/18: Patient seen and examined tolerating clear liquid diet which is recommendation by the surgeon. donation worker has been consulted to assist with discharge planning and outpatient follow-up considering patient's financial status 07/19 patient is awake and alert and complains of abdominal pain and states that it is 9/10 on the pain scale. She was discharged yesterday. Discussed with rn case mgr and RN Apparently has issues with discharge as family is refusing to take care of her. Also discussed with general surgery Dr. Miranda 07/20 no acute events overnight. She is awake and alert. Complains of abdominal pain. Lab results reviewed. Discussed with patient's stepfather in person about discharge. Does not look like he is willing to take care of her. operation manager was present during my discussion 07/21 no acute events overnight. Complains of abdominal pain. Lab results reviewed. Waiting for disposition 07/22: Patient seen and examined, continue supportive care, Per surgeon wound cannot be closed due dehiscence. Case management working on placment. Patient will follow outpatient with surgeon. 07/23: Patient seen and examined, continue supportive care, Per surgeon wound cannot be closed due to dehiscence. Case management working on placement. Patient will follow outpatient with surgeon. 07/24: Patient seen and examined, continue supportive care, Per surgeon wound cannot be closed due to dehiscence. Case management working on placement. Patient will follow outpatient with surgeon. 07/25: Patient awaiting placement. Continue wound care per wound team. 07/26: Patient seen and examined, continue supportive care, Per surgeon wound cannot be closed due to dehiscence. Case management working on placement. Patient will follow outpatient with surgeon. Psychiatry also evaluated the patient and agree with need for placement. No recommendations for acute inpatient psychiatric treatment 07/27: Patient with fever 100.6. Check blood cultures, urinalysis and chest x- ray. Patient previously had IR drainage of what was felt to be a seroma. We will continue to monitor temperature curve 07/28: We will follow-up blood and urine cultures. Urinalysis does reveal UTI. Start antibiotics of Rocephin. Per surgeon wound cannot be closed due to dehiscence. Case management working on placement. Patient will follow outpatient with surgeon. Psychiatry also evaluated the patient and agree with need for placement. No recommendations for acute inpatient psychiatric treatment 07/29: Urine cultures positive for gram-negative rods, continue IV Rocephin, follow culture sensitivities Patient awaiting placement History Interval history: I seen and examined the patient at the bedside Patient's chart and medications reviewed Patient feels slightly better Hospitalist Physical - Constitutional Vitals: Temp Pulse Resp BP Pulse Ox 98.2 F 94 H 20 105/70 93 07/29/21 08:20 07/29/21 08:20 07/29/21 08:20 07/29/21 08:20 07/29/21 08:20 General appearance: Present: no acute distress, well-nourished, obese - EENT Eyes: Present: PERRL, EOM intact - Neck Neck: Present: supple, normal ROM - Respiratory Respiratory effort: normal Respiratory: bilateral: diminished, negative: rales, rhonchi, wheezing - Cardiovascular Rhythm: regular Heart Sounds: Present: S1 & S2 - Extremities Extremities: no ischemia, No edema - Abdominal General gastrointestinal: soft, non-tender, non-distended, normal bowel sounds, other (Surgical dressing in place) - Integumentary Integumentary: Present: clear, warm - Psychiatric Psychiatric: appropriate mood/affect, cooperative - Neurologic Neurologic: CNII-XII intact, moves all extremities Results - Labs CBC & Chem 7: 07/28/21 06:48 07/28/21 06:48 Labs: Laboratory Last Values WBC 6.9 K/mm3 (4.5-11.0) 07/28/21 06:48 RBC 2.88 M/mm3 (3.65-5.03) L 07/28/21 06:48 Hgb 7.9 gm/dl (10.1-14.3) L 07/28/21 06:48 Hct 25.0 % (30.3-42.9) L 07/28/21 06:48 MCV 87 fl (79-97) 07/28/21 06:48 MCH 28 pg (28-32) 07/28/21 06:48 MCHC 32 % (30-34) 07/28/21 06:48 RDW 14.8 % (13.2-15.2) 07/28/21 06:48 Plt Count 409 K/mm3 (140-440) 07/28/21 06:48 Lymph % (Auto) 26.6 % (13.4-35.0) 07/28/21 06:48 [place] % (Auto) 8.6 % (0.0-7.3) H 07/28/21 06:48 Eos % (Auto) 4.7 % (0.0-4.3) H 07/28/21 06:48 Baso % (Auto) 0.9 % (0.0-1.8) 07/28/21 06:48 Lymph # (Auto) 1.8 K/mm3 (1.2-5.4) 07/28/21 06:48 [place] # (Auto) 0.6 K/mm3 (0.0-0.8) 07/28/21 06:48 Eos # (Auto) 0.3 K/mm3 (0.0-0.4) 07/28/21 06:48 Baso # (Auto) 0.1 K/mm3 (0.0-0.1) 07/28/21 06:48 Seg Neutrophils % 59.2 % (40.0-70.0) 07/28/21 06:48 Seg Neutrophils # 4.1 K/mm3 (1.8-7.7) 07/28/21 06:48 PT 14.6 Sec. (12.2-14.9) 07/15/21 05:24 INR 1.03 (0.87-1.13) 07/15/21 05:24 Sodium 133 mmol/L (137-145) L 07/28/21 06:48 Potassium 3.4 mmol/L (3.6-5.0) L 07/28/21 06:48 Chloride 97.1 mmol/L (98-107) L 07/28/21 06:48 Carbon Dioxide 24 mmol/L (22-30) 07/28/21 06:48 Anion Gap 15 mmol/L 07/28/21 06:48 BUN 3 mg/dL (7-17) L 07/28/21 06:48 Creatinine 0.5 mg/dL (0.6-1.2) L D 07/28/21 06:48 Estimated GFR > 60 ml/min 07/28/21 06:48 BUN/Creatinine Ratio 6 % 07/28/21 06:48 Glucose 107 mg/dL (65-100) H 07/28/21 06:48 POC Glucose 101 mg/dL (70-105) 07/23/21 12:00 Calcium 8.1 mg/dL (8.4-10.2) L 07/28/21 06:48 Total Bilirubin 0.30 mg/dL (0.1-1.2) 07/16/21 04:13 AST 9 units/L (5-40) 07/16/21 04:13 ALT 6 units/L (7-56) L 07/16/21 04:13 Alkaline Phosphatase 185 units/L (35-129) H 07/16/21 04:13 Total Protein 6.3 g/dL (6.3-8.2) 07/16/21 04:13 Albumin 1.9 g/dL (3.9-5) L 07/16/21 04:13 Albumin/Globulin Ratio 0.4 % 07/16/21 04:13 Urine Color Yellow (Yellow) 07/27/21 16:55 Urine Turbidity Cloudy (Clear) 07/27/21 16:55 Urine pH 5.0 (5.0-7.0) 07/27/21 16:55 Ur Specific [place] 1.011 (1.003-1.030) 07/27/21 16:55 Urine Protein <15 mg/dl mg/dL (Negative) 07/27/21 16:55 Urine Glucose (UA) Neg mg/dL (Negative) 07/27/21 16:55 Urine Ketones Neg mg/dL (Negative) 07/27/21 16:55 Urine Blood Sm (Negative) 07/27/21 16:55 Urine Nitrite Pos (Negative) 07/27/21 16:55 Urine Bilirubin Neg (Negative) 07/27/21 16:55 Urine Urobilinogen < 2.0 mg/dL (<2.0) 07/27/21 16:55 Ur Leukocyte Esterase Lg (Negative) 07/27/21 16:55 Urine WBC (Auto) > 182.0 /HPF (0.0-6.0) H 07/27/21 16:55 Urine RBC (Auto) 14.0 /HPF (0.0-6.0) 07/27/21 16:55 U Epithel Cells (Auto) 6.0 /HPF (0-13.0) 07/27/21 16:55 Urine Bacteria (Auto) 1+ /HPF (Negative) 07/27/21 16:55 Urine Mucus Few /HPF 07/27/21 16:55 Urine Yeast (Budding) 1+ /HPF 07/27/21 16:55 Nasal Screen MRSA (PCR) Negative (Negative) 07/16/21 04:38 Microbiology: Microbiology 07/27/21 13:54 Peripheral/Venous Blood Culture - Preliminary NO GROWTH AFTER 24 HOURS 07/27/21 13:37 Peripheral/Venous Blood Culture - Preliminary NO GROWTH AFTER 24 HOURS [place]/IV: Voiding Method External Female Catheter Active Medications - Current Medications Current Medications: Generic Name Dose Route Start Last Admin Trade Name Freq PRN Reason Stop Dose Admin Acetaminophen 650 mg 07/15/21 05:11 07/27/21 00:35 Acetaminophen 325 Mg Tab PO 650 mg Q4H PRN Administration Pain MILD(1-3)/Fever >100.5/PAYNE Albuterol 2.5 mg 07/15/21 05:11 Albuterol 2.5 Mg/3 Ml Nebu IH Q4HRT PRN Shortness Of Breath Famotidine 20 mg 07/29/21 10:00 Famotidine 20 Mg Tab PO BID SOILA Heparin Sodium (Porcine) 5,000 unit 07/15/21 10:00 07/28/21 22:06 Heparin 5,000 Unit/1 Ml Vial SUB-Q 5,000 unit Q12HR SOILA Administration Hydromorphone HCl 0.5 mg 07/15/21 05:11 07/29/21 08:35 Hydromorphone 1 Mg/1 Ml Inj IV 0.5 mg Q3H PRN Administration Pain , Severe (7-10) Dextrose/Sodium Chloride 1,000 mls @ 100 mls/hr 07/15/21 06:00 07/28/21 22:16 D5/0.45ns IV 100 mls/hr DIRECT SOILA Administration Ceftriaxone Sodium 1 gm in 50 mls @ 100 mls/hr 07/28/21 10:00 07/28/21 09:44 Rocephin/Ns 1 Gm/50 Ml IV 100 mls/hr Q24HR SOILA Administration Protocol Morphine Sulfate 2 mg 07/15/21 05:11 07/27/21 22:07 Morphine 2 Mg/1 Ml Inj IV 2 mg Q4H PRN Administration Pain, Moderate (4-6) Ondansetron HCl 4 mg 07/15/21 05:11 07/25/21 21:14 Ondansetron 4 Mg/2 Ml Inj IV 4 mg Q8H PRN Administration Nausea And Vomiting Sodium Chloride 10 ml 07/15/21 10:00 07/28/21 22:06 Sodium Chloride 0.9% 10 Ml Flush Syringe IV 10 ml BID SOILA Administration Sodium Chloride 10 ml 07/15/21 05:11 07/27/21 04:12 Sodium Chloride 0.9% 10 Ml Flush Syringe IV 10 ml PRN PRN Administration LINE FLUSH Sodium Hypochlorite 1 applic 07/20/21 10:00 07/28/21 22:13 Sodium Hypochlorite, Dakin's Full Strength (0.5%) 473 Ml Topical Soln TP 1 applicatio BID SOILA Administration Nutrition/Malnutrition Assess - Dietary Evaluation Nutrition/Malnutrition Findings: Nutrition Notes Start: 07/15/21 12:08 Freq: Status: Active Protocol: Document 07/23/21 15:25 JORGE (Rec: 07/23/21 15:54 JORGE [id number]) Nutrition Notes Initial or Follow up Reassessment Other Pertinent Diagnosis R-hemicolectomy/open wound, Normocytic anemia, PCM, Thrombocytosis. Current Diet Clear Liquids Diet (since B ). Labs/Tests 07/21: Na 135, BUN 5, Crea 0.4 , Glu 110, Ca 8.3. Pertinent Medications 07/23: D5ns 1,000 ml @ 100 ml/ hr, others nutritionally unremarkable. Height 5 ft 2 in Weight 89.1 kg [place] Body Weight (kg) 50.00 BMI 35.9 Weight Status Obese Subjective/Other Information RD consult for review on diet advancement. PO intake of meals is Fair (50 %). Percent of energy/protein needs met: Prescribed Clear Liquids Diet provides for energy/protein needs (590 Kcal/16 g) during LOS. Burn Absent Trauma Absent GI Symptoms Other Food Allergy No Skin Integrity/Comment Surgical abdominal wound Current % PO Fair (50-74%) Minimum of two criteria No #2 Nutrition Diagnosis Inadequate protein-energy intake Etiology (R) colectomy with end ileostomy. As Evidenced by Signs and Symptoms Fair PO intake of meals (50%). #1 Nutrition Diagnosis Altered GI function Etiology Abdominal abscess, peritonitis , (R) colectomy with end ileostomy. As Evidenced by Signs and Symptoms Surgery performed. Diagnosis Progress(for reassessment Continues documentation) Is patient on ventilator? No Is Patient Ambulatory and/or Out of Bed Yes REE-([facility]-ambulatory/OOB) [ 1936.025 [id number]] Calculation Used for Recommendations Pili Supriya Additional Notes Protein: 1.2-1.5 g/Kg; 60-75 g /day (from IBW + critical care ). Fluids: 1 ml/Kcal, or as per MD. Nutrition Intervention Change Diet Order: Continue Clear Liquids Diet as per MD; when pertinent, advance to Regular Diet. Add Supplement/Snack (indicate name/kcal 8 fl oz Ensure Clear; TID /protein ) Provides kCal: 720 Provides Protein (gm) 24 Goal #1 Maintain body weight within +/ -3% of current BWt during LOS. Goal #2 Reach and maintain acceptable chemistry lab values during LOS. Follow-Up By: 07/30/21 Additional Comments Continue monitoring food tolerance, %PO intake of meals , Hydration, and BM.
[2021-07-29] MEDS: FAMOTIDINE 20 MG TAB PO SCH ×2 (09:52→21:21)
[2021-07-29] MEDS: cefTRIAXone/NS 1 GM/50 ML 1 GM/50 ML BAG IV SCH (09:52)
[2021-07-29] MEDS: HEPARIN 5,000 UNIT/1 ML VIAL SUB-Q SCH ×2 (09:52→21:20)
[2021-07-29] MEDS: D5W/0.45% NACL 1,000 ML IV SCH (09:59)
[2021-07-29] MEDS ORDERED: POTASSIUM CHLORIDE ER 20 MEQ TAB PO ONE ×2 (10:44→11:15)
[2021-07-29] MEDS ORDERED: POTASSIUM CHLORIDE ER 10 MEQ TAB PO ONE (11:15)
[2021-07-29] MEDS: SODIUM HYPOCHLORITE, DAKIN'S FULL STRENGTH (0.5%) 473 ML TOPICAL SOLN TP SCH (15:10)
[2021-07-29] MEDS: MORPHINE 2 MG/1 ML INJ IV PRN ×2 (15:37→20:16)
[2021-07-30] MEDS: HYDROmorphone 1 MG/1 ML INJ IV PRN ×6 (00:13→20:50)
[2021-07-30] MEDS: SODIUM HYPOCHLORITE, DAKIN'S FULL STRENGTH (0.5%) 473 ML TOPICAL SOLN TP SCH ×2 (00:14→09:06)
[2021-07-30] MEDS: MORPHINE 2 MG/1 ML INJ IV PRN ×2 (02:31→06:30)
[2021-07-30] MEDS: D5W/0.45% NACL 1,000 ML IV SCH ×2 (03:46→20:27)
[2021-07-30] MEDS: HEPARIN 5,000 UNIT/1 ML VIAL SUB-Q SCH ×2 (09:05→21:02)
[2021-07-30] MEDS: cefTRIAXone/NS 1 GM/50 ML 1 GM/50 ML BAG IV SCH (09:05)
[2021-07-30] MEDS: FAMOTIDINE 20 MG TAB PO SCH ×2 (09:05→21:02)
--- NOTE | 2021-07-30 09:36 | Progress Note ---
Assessment and Plan Assessment and plan: This is a 45 years old female with history of psychiatric problem/drug abuse was brought to the emergency room from [facility] because of abdominal pain. Abdominal pain moderate in intensity constant does not radiate aching generalized started since yesterday. Patient also complained of abdominal pain but denies fever, nausea or vomiting. Patient is right colectomy with end ileostomy and omentectomy by Dr. Ruben Colón on 06/29/2021 CT scan of the abdomen done in other hospital shows postsurgical changes from previous bowel resection there is a 9.1 x 6.1 cm fluid collection near the an astomosis in the right hemiabdomen extending to the inferior liver margin and gallbladder fossa concerning for abscess. There is pericholecystic fluid and AN area of hypoattenuation in the inferior margin of the liver which could be a developing abscess currently there is no drainable intrahepatic abscess. A few scattered foci of free air in the abdomen this could be related to the postsurgical changes although an anastomotic leak cannot be excluded. There is additional loculated fluid collection more inferiorly in the anterior pelvis surgical consult patient is recommended The patient was treated with Zosyn 4.5 g IV every 8 hours and clindamycin 600 mg IV every 8 hours. Surgery was consulted with Dr. Miranda Assessment and plan --New UTI; gram-negative rods/Klebsiella pneumonia and Enterococcus, sensitive to Rocephin Continue Rocephin, and supportive care --History of abdominal abscess/peritonitis Status post right hemicolectomy /Colostomy and has open wound Patient also has a drain and per discussion with general surgery, patient can go home with the drain Needs outpatient follow-up with wound care and general surgery in 2 weeks Wound cultures results reviewed, continue current management --Colostomy care --Abdominal pain; Treat the underlying cause , pain management --Normocytic anemia Closely monitor H&H, transfuse as needed --Severe protein calorie malnutrition; albumin 1.9 Nutrition supplements, nutrition consult, supportive care --Thrombocytosis - reactive --Hypokalemia-improved. Continue current management DC planning per case management, possible placement with outpatient wound care Plan of care reviewed with the patient and her nurse as well as the case management Hospital course 07/16: IR consulted, continue current medications, Traveling Phlebotomist consult. Continue current medications and pain control. Replace potassium 07/17: Patient seen and examined clinically stable at this time no new com plaint. Continue supportive care. Awaiting IR intervention. Anticipate discharge in a.m. if cultures results are available 07/18: Patient seen and examined tolerating clear liquid diet which is rec ommendation by the surgeon. pole frame construction worker has been consulted to assist with discharge planning and o utpatient follow-up considering patient's financial status 07/19 patient is awake and alert and complains of abdominal pain and states that it is 9/10 on the pain scale. She was discharged yesterday. Discussed with casey saw operator and RN Apparently has issues with discharge as family is refusing to take care of her. Also discussed with general surgery Dr. Miranda 07/20 no acute events overnight. She is awake and alert. Complains of abdominal pain. Lab results reviewed. Discussed with patient's stepfather in person about discharge. Does not look like he is willing to take care of her. bid manager was present during my discussion 07/21 no acute events overnight. Complains of abdominal pain. Lab results reviewed. Waiting for disposition 07/22: Patient seen and examined, continue supportive care, Per surgeon wound cannot be closed due dehiscence. Case management working on placment. Patient will follow outpatient with surgeon. 07/23: Patient seen and examined, continue supportive care, Per surgeon wound cannot be closed due to dehiscence. Case management working on placement. Patient will follow outpatient with surgeon. 07/24: Patient seen and examined, continue supportive care, Per surgeon wound cannot be closed due to dehiscence. Case management working on placement. Patient will follow outpatient with surgeon. 07/25: Patient awaiting placement. Continue wound care per wound team. 07/26: Patient seen and examined, continue supportive care, Per surgeon wound cannot be closed due to dehiscence. Case management working on placement. Patient will follow outpatient with surgeon. Psychiatry also evaluated the patient and agree with need for placement. No recommendations for acute inpatient psychiatric treatment 07/27: Patient with fever 100.6. Check blood cultures, urinalysis and chest x- ray. Patient previously had IR drainage of what was felt to be a seroma. We will continue to monitor temperature curve 07/28: We will follow-up blood and urine cultures. Urinalysis does reveal UTI. Start antibiotics of Rocephin. Per surgeon wound cannot be closed due to dehiscence. Case management working on placement. Patient will follow outp atient with surgeon. Psychiatry also evaluated the patient and agree with need for placement. No recommendations for acute inpatient psychiatric treatment 07/29: Urine cultures positive for gram-negative rods, continue IV Rocephin, follow culture sensitivities Patient awaiting placement 09/10; urine cultures gram-negative rods Klebsiella pneumonia and Enterococcus sensitive to Rocephin We will continue patient's Rocephin at this point, awaiting placement per case management History Interval history: I have seen and examined the patient at the bedside Patient's chart and medications reviewed Patient complains of pain in the abdominal wall at the site of surgery Asking for pain medications Afebrile in mild distress Hospitalist Physical - Constitutional Vitals: Temp Pulse Resp BP Pulse Ox 98.2 F 94 H 16 101/59 100 07/30/21 07:45 07/30/21 07:45 07/30/21 07:45 07/30/21 07:45 07/30/21 07:45 General appearance: Present: no acute distress, well-nourished, obese - EENT Eyes: Present: PERRL, EOM intact - Neck Neck: Present: supple, normal ROM - Respiratory Respiratory effort: normal Respiratory: bilateral: diminished, rhonchi, negative: rales, wheezing - Cardiovascular Rhythm: regular Heart Sounds: Present: S1 & S2 - Extremities Extremities: no ischemia, No edema - Abdominal General gastrointestinal: soft, non-tender, other (Surgical dressing in place, colostomy in place) - Integumentary Integumentary: Present: clear, warm - Psychiatric Psychiatric: appropriate mood/affect, cooperative - Neurologic Neurologic: moves all extremities Results - Labs CBC & Chem 7: 07/28/21 06:48 07/28/21 06:48 Labs: Laboratory Last Values WBC 6.9 K/mm3 (4.5-11.0) 07/28/21 06:48 RBC 2.88 M/mm3 (3.65-5.03) L 07/28/21 06:48 Hgb 7.9 gm/dl (10.1-14.3) L 07/28/21 06:48 Hct 25.0 % (30.3-42.9) L 07/28/21 06:48 MCV 87 fl (79-97) 07/28/21 06:48 MCH 28 pg (28-32) 07/28/21 06:48 MCHC 32 % (30-34) 07/28/21 06:48 RDW 14.8 % (13.2-15.2) 07/28/21 06:48 Plt Count 409 K/mm3 (140-440) 07/28/21 06:48 Lymph % (Auto) 26.6 % (13.4-35.0) 07/28/21 06:48 [place] % (Auto) 8.6 % (0.0-7.3) H 07/28/21 06:48 Eos % (Auto) 4.7 % (0.0-4.3) H 07/28/21 06:48 Baso % (Auto) 0.9 % (0.0-1.8) 07/28/21 06:48 Lymph # (Auto) 1.8 K/mm3 (1.2-5.4) 07/28/21 06:48 [place] # (Auto) 0.6 K/mm3 (0.0-0.8) 07/28/21 06:48 Eos # (Auto) 0.3 K/mm3 (0.0-0.4) 07/28/21 06:48 Baso # (Auto) 0.1 K/mm3 (0.0-0.1) 07/28/21 06:48 Seg Neutrophils % 59.2 % (40.0-70.0) 07/28/21 06:48 Seg Neutrophils # 4.1 K/mm3 (1.8-7.7) 07/28/21 06:48 PT 14.6 Sec. (12.2-14.9) 07/15/21 05:24 INR 1.03 (0.87-1.13) 07/15/21 05:24 Sodium 133 mmol/L (137-145) L 07/28/21 06:48 Potassium 3.4 mmol/L (3.6-5.0) L 07/28/21 06:48 Chloride 97.1 mmol/L (98-107) L 07/28/21 06:48 Carbon Dioxide 24 mmol/L (22-30) 07/28/21 06:48 Anion Gap 15 mmol/L 07/28/21 06:48 BUN 3 mg/dL (7-17) L 07/28/21 06:48 Creatinine 0.5 mg/dL (0.6-1.2) L D 07/28/21 06:48 Estimated GFR > 60 ml/min 07/28/21 06:48 BUN/Creatinine Ratio 6 % 07/28/21 06:48 Glucose 107 mg/dL (65-100) H 07/28/21 06:48 POC Glucose 101 mg/dL (70-105) 07/23/21 12:00 Calcium 8.1 mg/dL (8.4-10.2) L 07/28/21 06:48 Total Bilirubin 0.30 mg/dL (0.1-1.2) 07/16/21 04:13 AST 9 units/L (5-40) 07/16/21 04:13 ALT 6 units/L (7-56) L 07/16/21 04:13 Alkaline Phosphatase 185 units/L (35-129) H 07/16/21 04:13 Total Protein 6.3 g/dL (6.3-8.2) 07/16/21 04:13 Albumin 1.9 g/dL (3.9-5) L 07/16/21 04:13 Albumin/Globulin Ratio 0.4 % 07/16/21 04:13 Urine Color Yellow (Yellow) 07/27/21 16:55 Urine Turbidity Cloudy (Clear) 07/27/21 16:55 Urine pH 5.0 (5.0-7.0) 07/27/21 16:55 Ur Specific [place] 1.011 (1.003-1.030) 07/27/21 16:55 Urine Protein <15 mg/dl mg/dL (Negative) 07/27/21 16:55 Urine Glucose (UA) Neg mg/dL (Negative) 07/27/21 16:55 Urine Ketones Neg mg/dL (Negative) 07/27/21 16:55 Urine Blood Sm (Negative) 07/27/21 16:55 Urine Nitrite Pos (Negative) 07/27/21 16:55 Urine Bilirubin Neg (Negative) 07/27/21 16:55 Urine Urobilinogen < 2.0 mg/dL (<2.0) 07/27/21 16:55 Ur Leukocyte Esterase Lg (Negative) 07/27/21 16:55 Urine WBC (Auto) > 182.0 /HPF (0.0-6.0) H 07/27/21 16:55 Urine RBC (Auto) 14.0 /HPF (0.0-6.0) 07/27/21 16:55 U Epithel Cells (Auto) 6.0 /HPF (0-13.0) 07/27/21 16:55 Urine Bacteria (Auto) 1+ /HPF (Negative) 07/27/21 16:55 Urine Mucus Few /HPF 07/27/21 16:55 Urine Yeast (Budding) 1+ /HPF 07/27/21 16:55 Nasal Screen MRSA (PCR) Negative (Negative) 07/16/21 04:38 Microbiology: Microbiology 07/27/21 13:54 Peripheral/Venous Blood Culture - Preliminary NO GROWTH AFTER 48 HOURS 07/27/21 13:37 Peripheral/Venous Blood Culture - Preliminary NO GROWTH AFTER 48 HOURS 07/28/21 14:25 Urine,Catheterized - Straight Catheter Urine Culture - Preliminary Gram Negative Jony Shelton/IV: Voiding Method External Female Catheter Active Medications - Current Medications Current Medications: Generic Name Dose Route Start Last Admin Trade Name Freq PRN Reason Stop Dose Admin Acetaminophen 650 mg 07/15/21 05:11 07/27/21 00:35 Acetaminophen 325 Mg Tab PO 650 mg Q4H PRN Administration Pain MILD(1-3)/Fever >100.5/PAYNE Albuterol 2.5 mg 07/15/21 05:11 Albuterol 2.5 Mg/3 Ml Nebu IH Q4HRT PRN Shortness Of Breath Famotidine 20 mg 07/29/21 10:00 07/30/21 09:05 Famotidine 20 Mg Tab PO 20 mg BID SOILA Administration Heparin Sodium (Porcine) 5,000 unit 07/15/21 10:00 07/30/21 09:05 Heparin 5,000 Unit/1 Ml Vial SUB-Q 5,000 unit Q12HR SOILA Administration Hydromorphone HCl 0.5 mg 07/15/21 05:11 07/30/21 03:46 Hydromorphone 1 Mg/1 Ml Inj IV 0.5 mg Q3H PRN Administration Pain , Severe (7-10) Dextrose/Sodium Chloride 1,000 mls @ 100 mls/hr 07/15/21 06:00 07/30/21 03:46 D5/0.45ns IV 100 mls/hr DIRECT SOILA Administration Ceftriaxone Sodium 1 gm in 50 mls @ 100 mls/hr 07/28/21 10:00 07/30/21 09:05 Rocephin/Ns 1 Gm/50 Ml IV 100 mls/hr Q24HR SOILA Administration Protocol Morphine Sulfate 2 mg 07/15/21 05:11 07/30/21 06:30 Morphine 2 Mg/1 Ml Inj IV 2 mg Q4H PRN Administration Pain, Moderate (4-6) Ondansetron HCl 4 mg 07/15/21 05:11 07/25/21 21:14 Ondansetron 4 Mg/2 Ml Inj IV 4 mg Q8H PRN Administration Nausea And Vomiting Sodium Chloride 10 ml 07/15/21 10:00 07/30/21 09:06 Sodium Chloride 0.9% 10 Ml Flush Syringe IV 10 ml BID SOILA Administration Sodium Chloride 10 ml 07/15/21 05:11 07/27/21 04:12 Sodium Chloride 0.9% 10 Ml Flush Syringe IV 10 ml PRN PRN Administration LINE FLUSH Sodium Hypochlorite 1 applic 07/20/21 10:00 07/30/21 09:06 Sodium Hypochlorite, [place]in's Full Strength (0.5%) 473 Ml Topical Soln TP 1 applicatio BID SOILA Administration Nutrition/Malnutrition Assess - Dietary Evaluation Nutrition/Malnutrition Findings: Nutrition Notes Start: 07/15/21 12:08 Freq: Status: Active Protocol: Document 07/23/21 15:25 JORGE (Rec: 07/23/21 15:54 JORGE [id number]) Nutrition Notes Initial or Follow up Reassessment Other Pertinent Diagnosis R-hemicolectomy/open wound, Normocytic anemia, PCM, Thrombocytosis. Current Diet Clear Liquids Diet (since B ). Labs/Tests 07/21: Na 135, BUN 5, Crea 0.4 , Glu 110, Ca 8.3. Pertinent Medications 07/23: D5ns 1,000 ml @ 100 ml/ hr, others nutritionally unremarkable. Height 5 ft 2 in Weight 89.1 kg [place] Body Weight (kg) 50.00 BMI 35.9 Weight Status Obese Subjective/Other Information RD consult for review on diet advancement. PO intake of meals is Fair (50 %). Percent of energy/protein needs met: Prescribed Clear Liquids Diet provides for energy/protein needs (590 Kcal/16 g) during LOS. Burn Absent Trauma Absent GI Symptoms Other Food Allergy No Skin Integrity/Comment Surgical abdominal wound Current % PO Fair (50-74%) Minimum of two criteria No #2 Nutrition Diagnosis Inadequate protein-energy intake Etiology (R) colectomy with end ileostomy. As Evidenced by Signs and Symptoms Fair PO intake of meals (50%). #1 Nutrition Diagnosis Altered GI function Etiology Abdominal abscess, peritonitis , (R) colectomy with end ileostomy. As Evidenced by Signs and Symptoms Surgery performed. Diagnosis Progress(for reassessment Continues documentation) Is patient on ventilator? No Is Patient Ambulatory and/or Out of Bed Yes REE-([facility]-ambulatory/OOB) [ 1936.025 [id number]] Calculation Used for Recommendations [facility] Additional Notes Protein: 1.2-1.5 g/Kg; 60-75 g /day (from IBW + critical care ). Fluids: 1 ml/Kcal, or as per MD. Nutrition Intervention Change Diet Order: Continue Clear Liquids Diet as per MD; when pertinent, advance to Regular Diet. Add Supplement/Snack (indicate name/kcal 8 fl oz Ensure Clear; TID /protein ) Provides kCal: 720 Provides Protein (gm) 24 Goal #1 Maintain body weight within +/ -3% of current BWt during LOS. Goal #2 Reach and maintain acceptable chemistry lab values during LOS. Follow-Up By: 07/30/21 Additional Comments Continue monitoring food tolerance, %PO intake of meals , Hydration, and BM.
[2021-07-30] MEDS: ACETAMINOPHEN 325 MG TAB PO PRN (17:11)
[2021-07-31] MEDS: HYDROmorphone 1 MG/1 ML INJ IV PRN ×7 (00:06→20:43)
[2021-07-31] MEDS: SODIUM HYPOCHLORITE, DAKIN'S FULL STRENGTH (0.5%) 473 ML TOPICAL SOLN TP SCH ×2 (03:15→09:48)
[2021-07-31] MEDS: D5W/0.45% NACL 1,000 ML IV SCH ×2 (04:46→16:09)
--- NOTE | 2021-07-31 09:33 | Progress Note ---
Assessment and Plan Assessment and plan: This is a 45 years old female with history of psychiatric problem/drug abuse was brought to the emergency room from [facility] because of abdominal pain. Abdominal pain moderate in intensity constant does not radiate aching generalized started since yesterday. Patient also complained of abdominal pain but denies fever, nausea or vomiting. Patient is right colectomy with end ileostomy and omentectomy by Dr. Ruben Colón on 06/29/2021 CT scan of the abdomen done in other hospital shows postsurgical changes from previous bowel resection there is a 9.1 x 6.1 cm fluid collection near the an astomosis in the right hemiabdomen extending to the inferior liver margin and gallbladder fossa concerning for abscess. There is pericholecystic fluid and AN area of hypoattenuation in the inferior margin of the liver which could be a developing abscess currently there is no drainable intrahepatic abscess. A few scattered foci of free air in the abdomen this could be related to the postsurgical changes although an anastomotic leak cannot be excluded. There is additional loculated fluid collection more inferiorly in the anterior pelvis surgical consult patient is recommended The patient was treated with Zosyn 4.5 g IV every 8 hours and clindamycin 600 mg IV every 8 hours. Surgery was consulted with Dr. Miranda Assessment and plan --New UTI; gram-negative rods/Klebsiella pneumonia and Enterococcus, sensitive to Rocephin Continue Rocephin, and supportive care --History of abdominal abscess/peritonitis Status post right hemicolectomy /Colostomy and has open wound Patient also has a drain and per discussion with general surgery, patient can go home with the drain Needs outpatient follow-up with wound care and general surgery in 2 weeks Wound cultures results reviewed, continue current management --Colostomy care --Abdominal pain; Treat the underlying cause , pain management --Normocytic anemia Closely monitor H&H, transfuse as needed --Severe protein calorie malnutrition; albumin 1.9 Nutrition supplements, nutrition consult, supportive care --Thrombocytosis - reactive --Hypokalemia-improved. Continue current management DC planning per case management, possible placement with outpatient wound care Plan of care reviewed with the patient and her nurse as well as the case management Hospital course 07/16: IR consulted, continue current medications, Brick Or [employer] Maker consult. Continue current medications and pain control. Replace potassium 07/17: Patient seen and examined clinically stable at this time no new com plaint. Continue supportive care. Awaiting IR intervention. Anticipate discharge in a.m. if cultures results are available 07/18: Patient seen and examined tolerating clear liquid diet which is rec ommendation by the surgeon. vegetable i farmworker has been consulted to assist with discharge planning and o utpatient follow-up considering patient's financial status 07/19 patient is awake and alert and complains of abdominal pain and states that it is 9/10 on the pain scale. She was discharged yesterday. Discussed with employment evaluator/case manager and RN Apparently has issues with discharge as family is refusing to take care of her. Also discussed with general surgery Dr. Miranda 07/20 no acute events overnight. She is awake and alert. Complains of abdominal pain. Lab results reviewed. Discussed with patient's stepfather in person about discharge. Does not look like he is willing to take care of her. meat processing center manager was present during my discussion 07/21 no acute events overnight. Complains of abdominal pain. Lab results reviewed. Waiting for disposition 07/22: Patient seen and examined, continue supportive care, Per surgeon wound cannot be closed due dehiscence. Case management working on placment. Patient will follow outpatient with surgeon. 07/23: Patient seen and examined, continue supportive care, Per surgeon wound cannot be closed due to dehiscence. Case management working on placement. Patient will follow outpatient with surgeon. 07/24: Patient seen and examined, continue supportive care, Per surgeon wound cannot be closed due to dehiscence. Case management working on placement. Patient will follow outpatient with surgeon. 07/25: Patient awaiting placement. Continue wound care per wound team. 07/26: Patient seen and examined, continue supportive care, Per surgeon wound cannot be closed due to dehiscence. Case management working on placement. Patient will follow outpatient with surgeon. Psychiatry also evaluated the patient and agree with need for placement. No recommendations for acute inpatient psychiatric treatment 07/27: Patient with fever 100.6. Check blood cultures, urinalysis and chest x- ray. Patient previously had IR drainage of what was felt to be a seroma. We will continue to monitor temperature curve 07/28: We will follow-up blood and urine cultures. Urinalysis does reveal UTI. Start antibiotics of Rocephin. Per surgeon wound cannot be closed due to dehiscence. Case management working on placement. Patient will follow outp atient with surgeon. Psychiatry also evaluated the patient and agree with need for placement. No recommendations for acute inpatient psychiatric treatment 07/29: Urine cultures positive for gram-negative rods, continue IV Rocephin, follow culture sensitivities Patient awaiting placement 07/30; urine cultures gram-negative rods Klebsiella pneumonia and Enterococcus sensitive to Rocephin We will continue patient's Rocephin at this point, awaiting placement per case management 07/31; pending placement History Interval history: I have seen and examined the patient at the bedside this morning Patient's chart and medications reviewed Patient complains of some vague abdominal discomfort ,Acute distress chronically ill looking Hospitalist Physical - Constitutional Vitals: Temp Pulse Resp BP Pulse Ox 98.4 F 93 H 16 100/63 95 07/31/21 07:48 07/31/21 07:48 07/31/21 07:48 07/31/21 07:48 07/31/21 07:48 General appearance: Present: no acute distress, cachectic (Chronically ill looking), obese - EENT Eyes: Present: PERRL, EOM intact - Neck Neck: Present: supple, normal ROM - Respiratory Respiratory effort: normal Respiratory: bilateral: diminished, negative: rales, rhonchi, wheezing - Cardiovascular Rhythm: regular Heart Sounds: Present: S1 & S2 - Extremities Extremities: no ischemia, No edema - Abdominal General gastrointestinal: soft, non-tender, non-distended, normal bowel sounds - Integumentary Integumentary: Present: clear, warm - Psychiatric Psychiatric: appropriate mood/affect, cooperative - Neurologic Neurologic: CNII-XII intact, moves all extremities Results - Labs CBC & Chem 7: 07/28/21 06:48 07/28/21 06:48 Labs: Laboratory Last Values WBC 6.9 K/mm3 (4.5-11.0) 07/28/21 06:48 RBC 2.88 M/mm3 (3.65-5.03) L 07/28/21 06:48 Hgb 7.9 gm/dl (10.1-14.3) L 07/28/21 06:48 Hct 25.0 % (30.3-42.9) L 07/28/21 06:48 MCV 87 fl (79-97) 07/28/21 06:48 MCH 28 pg (28-32) 07/28/21 06:48 MCHC 32 % (30-34) 07/28/21 06:48 RDW 14.8 % (13.2-15.2) 07/28/21 06:48 Plt Count 409 K/mm3 (140-440) 07/28/21 06:48 Lymph % (Auto) 26.6 % (13.4-35.0) 07/28/21 06:48 [place] % (Auto) 8.6 % (0.0-7.3) H 07/28/21 06:48 Eos % (Auto) 4.7 % (0.0-4.3) H 07/28/21 06:48 Baso % (Auto) 0.9 % (0.0-1.8) 07/28/21 06:48 Lymph # (Auto) 1.8 K/mm3 (1.2-5.4) 07/28/21 06:48 [place] # (Auto) 0.6 K/mm3 (0.0-0.8) 07/28/21 06:48 Eos # (Auto) 0.3 K/mm3 (0.0-0.4) 07/28/21 06:48 Baso # (Auto) 0.1 K/mm3 (0.0-0.1) 07/28/21 06:48 Seg Neutrophils % 59.2 % (40.0-70.0) 07/28/21 06:48 Seg Neutrophils # 4.1 K/mm3 (1.8-7.7) 07/28/21 06:48 PT 14.6 Sec. (12.2-14.9) 07/15/21 05:24 INR 1.03 (0.87-1.13) 07/15/21 05:24 Sodium 133 mmol/L (137-145) L 07/28/21 06:48 Potassium 3.4 mmol/L (3.6-5.0) L 07/28/21 06:48 Chloride 97.1 mmol/L (98-107) L 07/28/21 06:48 Carbon Dioxide 24 mmol/L (22-30) 07/28/21 06:48 Anion Gap 15 mmol/L 07/28/21 06:48 BUN 3 mg/dL (7-17) L 07/28/21 06:48 Creatinine 0.5 mg/dL (0.6-1.2) L D 07/28/21 06:48 Estimated GFR > 60 ml/min 07/28/21 06:48 BUN/Creatinine Ratio 6 % 07/28/21 06:48 Glucose 107 mg/dL (65-100) H 07/28/21 06:48 POC Glucose 101 mg/dL (70-105) 07/23/21 12:00 Calcium 8.1 mg/dL (8.4-10.2) L 07/28/21 06:48 Total Bilirubin 0.30 mg/dL (0.1-1.2) 07/16/21 04:13 AST 9 units/L (5-40) 07/16/21 04:13 ALT 6 units/L (7-56) L 07/16/21 04:13 Alkaline Phosphatase 185 units/L (35-129) H 07/16/21 04:13 Total Protein 6.3 g/dL (6.3-8.2) 07/16/21 04:13 Albumin 1.9 g/dL (3.9-5) L 07/16/21 04:13 Albumin/Globulin Ratio 0.4 % 07/16/21 04:13 Urine Color Yellow (Yellow) 07/27/21 16:55 Urine Turbidity Cloudy (Clear) 07/27/21 16:55 Urine pH 5.0 (5.0-7.0) 07/27/21 16:55 Ur Specific [place] 1.011 (1.003-1.030) 07/27/21 16:55 Urine Protein <15 mg/dl mg/dL (Negative) 07/27/21 16:55 Urine Glucose (UA) Neg mg/dL (Negative) 07/27/21 16:55 Urine Ketones Neg mg/dL (Negative) 07/27/21 16:55 Urine Blood Sm (Negative) 07/27/21 16:55 Urine Nitrite Pos (Negative) 07/27/21 16:55 Urine Bilirubin Neg (Negative) 07/27/21 16:55 Urine Urobilinogen < 2.0 mg/dL (<2.0) 07/27/21 16:55 Ur Leukocyte Esterase Lg (Negative) 07/27/21 16:55 Urine WBC (Auto) > 182.0 /HPF (0.0-6.0) H 07/27/21 16:55 Urine RBC (Auto) 14.0 /HPF (0.0-6.0) 07/27/21 16:55 U Epithel Cells (Auto) 6.0 /HPF (0-13.0) 07/27/21 16:55 Urine Bacteria (Auto) 1+ /HPF (Negative) 07/27/21 16:55 Urine Mucus Few /HPF 07/27/21 16:55 Urine Yeast (Budding) 1+ /HPF 07/27/21 16:55 Nasal Screen MRSA (PCR) Negative (Negative) 07/16/21 04:38 Microbiology: Microbiology 07/27/21 13:54 Peripheral/Venous Blood Culture - Preliminary NO GROWTH AFTER 72 HOURS 07/27/21 13:37 Peripheral/Venous Blood Culture - Preliminary NO GROWTH AFTER 72 HOURS 07/28/21 14:25 Urine,Catheterized - Straight Catheter Urine Culture - Preliminary Klebsiella Pneumoniae Enterococcus Species [place]/IV: Voiding Method External Female Catheter Active Medications - Current Medications Current Medications: Generic Name Dose Route Start Last Admin Trade Name Freq PRN Reason Stop Dose Admin Acetaminophen 650 mg 07/15/21 05:11 07/30/21 17:11 Acetaminophen 325 Mg Tab PO 650 mg Q4H PRN Administration Pain MILD(1-3)/Fever >100.5/PAYNE Albuterol 2.5 mg 07/15/21 05:11 Albuterol 2.5 Mg/3 Ml Nebu IH Q4HRT PRN Shortness Of Breath Famotidine 20 mg 07/29/21 10:00 07/30/21 21:02 Famotidine 20 Mg Tab PO 20 mg BID SOILA Administration Heparin Sodium (Porcine) 5,000 unit 07/15/21 10:00 07/30/21 21:02 Heparin 5,000 Unit/1 Ml Vial SUB-Q 5,000 unit Q12HR SOILA Administration Hydromorphone HCl 0.5 mg 07/15/21 05:11 07/31/21 06:27 Hydromorphone 1 Mg/1 Ml Inj IV 0.5 mg Q3H PRN Administration Pain , Severe (7-10) Dextrose/Sodium Chloride 1,000 mls @ 100 mls/hr 07/15/21 06:00 07/31/21 04:46 D5/0.45ns IV 100 mls/hr DIRECT SOILA Administration Ceftriaxone Sodium 1 gm in 50 mls @ 100 mls/hr 07/28/21 10:00 07/30/21 09:05 Rocephin/Ns 1 Gm/50 Ml IV 100 mls/hr Q24HR SOILA Administration Protocol Morphine Sulfate 2 mg 07/15/21 05:11 07/30/21 06:30 Morphine 2 Mg/1 Ml Inj IV 2 mg Q4H PRN Administration Pain, Moderate (4-6) Ondansetron HCl 4 mg 07/15/21 05:11 07/25/21 21:14 Ondansetron 4 Mg/2 Ml Inj IV 4 mg Q8H PRN Administration Nausea And Vomiting Sodium Chloride 10 ml 07/15/21 10:00 07/30/21 21:03 Sodium Chloride 0.9% 10 Ml Flush Syringe IV 10 ml BID SOILA Administration Sodium Chloride 10 ml 07/15/21 05:11 07/27/21 04:12 Sodium Chloride 0.9% 10 Ml Flush Syringe IV 10 ml PRN PRN Administration LINE FLUSH Sodium Hypochlorite 1 applic 07/20/21 10:00 07/31/21 03:15 Sodium Hypochlorite, Dakin's Full Strength (0.5%) 473 Ml Topical Soln TP 1 applicatio BID SOILA Administration Nutrition/Malnutrition Assess - Dietary Evaluation Nutrition/Malnutrition Findings: Nutrition Notes Start: 07/15/21 12:08 Freq: Status: Active Protocol: Document 07/23/21 15:25 JORGE (Rec: 07/23/21 15:54 JORGE [id number]) Nutrition Notes Initial or Follow up Reassessment Other Pertinent Diagnosis R-hemicolectomy/open wound, Normocytic anemia, PCM, Thrombocytosis. Current Diet Clear Liquids Diet (since B ). Labs/Tests 07/21: Na 135, BUN 5, Crea 0.4 , Glu 110, Ca 8.3. Pertinent Medications 07/23: D5ns 1,000 ml @ 100 ml/ hr, others nutritionally unremarkable. Height 5 ft 2 in Weight 89.1 kg [place] Body Weight (kg) 50.00 BMI 35.9 Weight Status Obese Subjective/Other Information RD consult for review on diet advancement. PO intake of meals is Fair (50 %). Percent of energy/protein needs met: Prescribed Clear Liquids Diet provides for energy/protein needs (590 Kcal/16 g) during LOS. Burn Absent Trauma Absent GI Symptoms Other Food Allergy No Skin Integrity/Comment Surgical abdominal wound Current % PO Fair (50-74%) Minimum of two criteria No #2 Nutrition Diagnosis Inadequate protein-energy intake Etiology (R) colectomy with end ileostomy. As Evidenced by Signs and Symptoms Fair PO intake of meals (50%). #1 Nutrition Diagnosis Altered GI function Etiology Abdominal abscess, peritonitis , (R) colectomy with end ileostomy. As Evidenced by Signs and Symptoms Surgery performed. Diagnosis Progress(for reassessment Continues documentation) Is patient on ventilator? No Is Patient Ambulatory and/or Out of Bed Yes REE-([facility]-ambulatory/OOB) [ 1936.025 [id number]] Calculation Used for Recommendations [facility] Additional Notes Protein: 1.2-1.5 g/Kg; 60-75 g /day (from IBW + critical care ). Fluids: 1 ml/Kcal, or as per MD. Nutrition Intervention Change Diet Order: Continue Clear Liquids Diet as per MD; when pertinent, advance to Regular Diet. Add Supplement/Snack (indicate name/kcal 8 fl oz Ensure Clear; TID /protein ) Provides kCal: 720 Provides Protein (gm) 24 Goal #1 Maintain body weight within +/ -3% of current BWt during LOS. Goal #2 Reach and maintain acceptable chemistry lab values during LOS. Follow-Up By: 07/30/21 Additional Comments Continue monitoring food tolerance, %PO intake of meals , Hydration, and BM.
[2021-07-31] MEDS: HEPARIN 5,000 UNIT/1 ML VIAL SUB-Q SCH ×2 (09:48→21:08)
[2021-07-31] MEDS: FAMOTIDINE 20 MG TAB PO SCH ×2 (09:48→21:08)
[2021-07-31] MEDS: cefTRIAXone/NS 1 GM/50 ML 1 GM/50 ML BAG IV SCH (09:48)
--- NOTE | 2021-07-31 18:41 | Progress Note ---
Assessment and Plan Assessment and plan: This is a 45 years old female with history of psychiatric problem/drug abuse was brought to the emergency room from [facility] because of abdominal pain. Abdominal pain moderate in intensity constant does not radiate aching generalized started since yesterday. Patient also complained of abdominal pain but denies fever, nausea or vomiting. Patient is right colectomy with end ileostomy and omentectomy by Dr. Ruben Colón on 06/29/2021 CT scan of the abdomen done in other hospital shows postsurgical changes from previous bowel resection there is a 9.1 x 6.1 cm fluid collection near the an astomosis in the right hemiabdomen extending to the inferior liver margin and gallbladder fossa concerning for abscess. There is pericholecystic fluid and AN area of hypoattenuation in the inferior margin of the liver which could be a developing abscess currently there is no drainable intrahepatic abscess. A few scattered foci of free air in the abdomen this could be related to the postsurgical changes although an anastomotic leak cannot be excluded. There is additional loculated fluid collection more inferiorly in the anterior pelvis surgical consult patient is recommended The patient was treated with Zosyn 4.5 g IV every 8 hours and clindamycin 600 mg IV every 8 hours. Surgery was consulted with Dr. Miranda Assessment and plan --New UTI; gram-negative rods/Klebsiella pneumonia and Enterococcus, sensitive to Rocephin Continue Rocephin, and supportive care --History of abdominal abscess/peritonitis Status post right hemicolectomy /Colostomy and has open wound Patient also has a drain and per discussion with general surgery, patient can go home with the drain Needs outpatient follow-up with wound care and general surgery in 2 weeks Wound cultures results reviewed, continue current management --Colostomy care --Abdominal pain; Treat the underlying cause , pain management --Normocytic anemia Closely monitor H&H, transfuse as needed --Severe protein calorie malnutrition; albumin 1.9 Nutrition supplements, nutrition consult, supportive care --Thrombocytosis - reactive --Hypokalemia-improved. Continue current management DC planning per case management, possible placement with outpatient wound care Plan of care reviewed with the patient and her nurse as well as the case management Hospital course 07/16: IR consulted, continue current medications, Farm Technician consult. Continue current medications and pain control. Replace potassium 07/17: Patient seen and examined clinically stable at this time no new com plaint. Continue supportive care. Awaiting IR intervention. Anticipate discharge in a.m. if cultures results are available 07/18: Patient seen and examined tolerating clear liquid diet which is rec ommendation by the surgeon. upkeep worker has been consulted to assist with discharge planning and o utpatient follow-up considering patient's financial status 07/19 patient is awake and alert and complains of abdominal pain and states that it is 9/10 on the pain scale. She was discharged yesterday. Discussed with top case assembler and RN Apparently has issues with discharge as family is refusing to take care of her. Also discussed with general surgery Dr. Miranda 07/20 no acute events overnight. She is awake and alert. Complains of abdominal pain. Lab results reviewed. Discussed with patient's stepfather in person about discharge. Does not look like he is willing to take care of her. search engine marketing manager was present during my discussion 07/21 no acute events overnight. Complains of abdominal pain. Lab results reviewed. Waiting for disposition 07/22: Patient seen and examined, continue supportive care, Per surgeon wound cannot be closed due dehiscence. Case management working on placment. Patient will follow outpatient with surgeon. 07/23: Patient seen and examined, continue supportive care, Per surgeon wound cannot be closed due to dehiscence. Case management working on placement. Patient will follow outpatient with surgeon. 07/24: Patient seen and examined, continue supportive care, Per surgeon wound cannot be closed due to dehiscence. Case management working on placement. Patient will follow outpatient with surgeon. 07/25: Patient awaiting placement. Continue wound care per wound team. 07/26: Patient seen and examined, continue supportive care, Per surgeon wound cannot be closed due to dehiscence. Case management working on placement. Patient will follow outpatient with surgeon. Psychiatry also evaluated the patient and agree with need for placement. No recommendations for acute inpatient psychiatric treatment 07/27: Patient with fever 100.6. Check blood cultures, urinalysis and chest x- ray. Patient previously had IR drainage of what was felt to be a seroma. We will continue to monitor temperature curve 07/28: We will follow-up blood and urine cultures. Urinalysis does reveal UTI. Start antibiotics of Rocephin. Per surgeon wound cannot be closed due to dehiscence. Case management working on placement. Patient will follow outp atient with surgeon. Psychiatry also evaluated the patient and agree with need for placement. No recommendations for acute inpatient psychiatric treatment 07/29: Urine cultures positive for gram-negative rods, continue IV Rocephin, follow culture sensitivities Patient awaiting placement 07/30; urine cultures gram-negative rods Klebsiella pneumonia and Enterococcus sensitive to Rocephin We will continue patient's Rocephin at this point, awaiting placement per case management 07/31; pending placement 08/01; patient's magnesium 1.6, replaced with mag sulfate 2 g, monitor electrolytes, pain medications adjusted History Interval history: I seen and examined the patient at the bedside Patient's chart and medications reviewed Patient complains of a lot of pain in the abdomen Asking for more pain medications Vital signs noted Hospitalist Physical - Constitutional Vitals: Temp Pulse Resp BP Pulse Ox 98.6 F 107 H 18 123/72 94 07/31/21 15:55 07/31/21 15:55 07/31/21 15:55 07/31/21 15:55 07/31/21 15:55 General appearance: Present: no acute distress, cachectic (Chronically ill looking), obese, other (Chronically ill looking) - EENT Eyes: Present: PERRL, EOM intact - Neck Neck: Present: supple, normal ROM - Respiratory Respiratory effort: normal Respiratory: bilateral: diminished, negative: rales, rhonchi, wheezing - Cardiovascular Rhythm: regular Heart Sounds: Present: S1 & S2 - Extremities Extremities: no ischemia, No edema - Abdominal General gastrointestinal: soft, non-tender, other (Surgical dressing in place, colostomy intact functional) - Integumentary Integumentary: Present: clear, warm - Psychiatric Psychiatric: appropriate mood/affect, cooperative - Neurologic Neurologic: moves all extremities Results - Labs CBC & Chem 7: 08/01/21 04:34 08/01/21 04:34 Labs: Laboratory Last Values WBC 6.9 K/mm3 (4.5-11.0) 07/28/21 06:48 RBC 2.88 M/mm3 (3.65-5.03) L 07/28/21 06:48 Hgb 7.9 gm/dl (10.1-14.3) L 07/28/21 06:48 Hct 25.0 % (30.3-42.9) L 07/28/21 06:48 MCV 87 fl (79-97) 07/28/21 06:48 MCH 28 pg (28-32) 07/28/21 06:48 MCHC 32 % (30-34) 07/28/21 06:48 RDW 14.8 % (13.2-15.2) 07/28/21 06:48 Plt Count 409 K/mm3 (140-440) 07/28/21 06:48 Lymph % (Auto) 26.6 % (13.4-35.0) 07/28/21 06:48 [place]urry % (Auto) 8.6 % (0.0-7.3) H 07/28/21 06:48 Eos % (Auto) 4.7 % (0.0-4.3) H 07/28/21 06:48 Baso % (Auto) 0.9 % (0.0-1.8) 07/28/21 06:48 Lymph # (Auto) 1.8 K/mm3 (1.2-5.4) 07/28/21 06:48 [place]urry # (Auto) 0.6 K/mm3 (0.0-0.8) 07/28/21 06:48 Eos # (Auto) 0.3 K/mm3 (0.0-0.4) 07/28/21 06:48 Baso # (Auto) 0.1 K/mm3 (0.0-0.1) 07/28/21 06:48 Seg Neutrophils % 59.2 % (40.0-70.0) 07/28/21 06:48 Seg Neutrophils # 4.1 K/mm3 (1.8-7.7) 07/28/21 06:48 PT 14.6 Sec. (12.2-14.9) 07/15/21 05:24 INR 1.03 (0.87-1.13) 07/15/21 05:24 Sodium 133 mmol/L (137-145) L 07/28/21 06:48 Potassium 3.4 mmol/L (3.6-5.0) L 07/28/21 06:48 Chloride 97.1 mmol/L (98-107) L 07/28/21 06:48 Carbon Dioxide 24 mmol/L (22-30) 07/28/21 06:48 Anion Gap 15 mmol/L 07/28/21 06:48 BUN 3 mg/dL (7-17) L 07/28/21 06:48 Creatinine 0.5 mg/dL (0.6-1.2) L D 07/28/21 06:48 Estimated GFR > 60 ml/min 07/28/21 06:48 BUN/Creatinine Ratio 6 % 07/28/21 06:48 Glucose 107 mg/dL (65-100) H 07/28/21 06:48 POC Glucose 101 mg/dL (70-105) 07/23/21 12:00 Calcium 8.1 mg/dL (8.4-10.2) L 07/28/21 06:48 Total Bilirubin 0.30 mg/dL (0.1-1.2) 07/16/21 04:13 AST 9 units/L (5-40) 07/16/21 04:13 ALT 6 units/L (7-56) L 07/16/21 04:13 Alkaline Phosphatase 185 units/L (35-129) H 07/16/21 04:13 Total Protein 6.3 g/dL (6.3-8.2) 07/16/21 04:13 Albumin 1.9 g/dL (3.9-5) L 07/16/21 04:13 Albumin/Globulin Ratio 0.4 % 07/16/21 04:13 Urine Color Yellow (Yellow) 07/27/21 16:55 Urine Turbidity Cloudy (Clear) 07/27/21 16:55 Urine pH 5.0 (5.0-7.0) 07/27/21 16:55 Ur Specific [place] 1.011 (1.003-1.030) 07/27/21 16:55 Urine Protein <15 mg/dl mg/dL (Negative) 07/27/21 16:55 Urine Glucose (UA) Neg mg/dL (Negative) 07/27/21 16:55 Urine Ketones Neg mg/dL (Negative) 07/27/21 16:55 Urine Blood Sm (Negative) 07/27/21 16:55 Urine Nitrite Pos (Negative) 07/27/21 16:55 Urine Bilirubin Neg (Negative) 07/27/21 16:55 Urine Urobilinogen < 2.0 mg/dL (<2.0) 07/27/21 16:55 Ur Leukocyte Esterase Lg (Negative) 07/27/21 16:55 Urine WBC (Auto) > 182.0 /HPF (0.0-6.0) H 07/27/21 16:55 Urine RBC (Auto) 14.0 /HPF (0.0-6.0) 07/27/21 16:55 U Epithel Cells (Auto) 6.0 /HPF (0-13.0) 07/27/21 16:55 Urine Bacteria (Auto) 1+ /HPF (Negative) 07/27/21 16:55 Urine Mucus Few /HPF 07/27/21 16:55 Urine Yeast (Budding) 1+ /HPF 07/27/21 16:55 Nasal Screen MRSA (PCR) Negative (Negative) 07/16/21 04:38 Microbiology: Microbiology 07/27/21 13:54 Peripheral/Venous Blood Culture - Preliminary NO GROWTH AFTER 72 HOURS 07/27/21 13:37 Peripheral/Venous Blood Culture - Preliminary NO GROWTH AFTER 72 HOURS 07/28/21 14:25 Urine,Catheterized - Straight Catheter Urine Culture - Preliminary Klebsiella Pneumoniae Enterococcus Species [place]/IV: Voiding Method External Female Catheter Active Medications - Current Medications Current Medications: Generic Name Dose Route Start Last Admin Trade Name Freq PRN Reason Stop Dose Admin Acetaminophen 650 mg 07/15/21 05:11 07/30/21 17:11 Acetaminophen 325 Mg Tab PO 650 mg Q4H PRN Administration Pain MILD(1-3)/Fever >100.5/PAYNE Albuterol 2.5 mg 07/15/21 05:11 Albuterol 2.5 Mg/3 Ml Nebu IH Q4HRT PRN Shortness Of Breath Famotidine 20 mg 07/29/21 10:00 07/31/21 09:48 Famotidine 20 Mg Tab PO 20 mg BID SOILA Administration Heparin Sodium (Porcine) 5,000 unit 07/15/21 10:00 07/31/21 09:48 Heparin 5,000 Unit/1 Ml Vial SUB-Q 5,000 unit Q12HR SOILA Administration Hydromorphone HCl 0.5 mg 07/15/21 05:11 07/31/21 16:10 Hydromorphone 1 Mg/1 Ml Inj IV 0.5 mg Q3H PRN Administration Pain , Severe (7-10) Dextrose/Sodium Chloride 1,000 mls @ 100 mls/hr 07/15/21 06:00 07/31/21 16:09 D5/0.45ns IV 100 mls/hr DIRECT SOILA Administration Ceftriaxone Sodium 1 gm in 50 mls @ 100 mls/hr 07/28/21 10:00 07/31/21 09:48 Rocephin/Ns 1 Gm/50 Ml IV 100 mls/hr Q24HR SOILA Administration Protocol Morphine Sulfate 2 mg 07/15/21 05:11 07/30/21 06:30 Morphine 2 Mg/1 Ml Inj IV 2 mg Q4H PRN Administration Pain, Moderate (4-6) Ondansetron HCl 4 mg 07/15/21 05:11 07/25/21 21:14 Ondansetron 4 Mg/2 Ml Inj IV 4 mg Q8H PRN Administration Nausea And Vomiting Sodium Chloride 10 ml 07/15/21 10:00 07/31/21 09:48 Sodium Chloride 0.9% 10 Ml Flush Syringe IV 10 ml BID SOILA Administration Sodium Chloride 10 ml 07/15/21 05:11 07/27/21 04:12 Sodium Chloride 0.9% 10 Ml Flush Syringe IV 10 ml PRN PRN Administration LINE FLUSH Sodium Hypochlorite 1 applic 07/20/21 10:00 07/31/21 09:48 Sodium Hypochlorite, Dakin's Full Strength (0.5%) 473 Ml Topical Soln TP 1 applicatio BID SOILA Administration Nutrition/Malnutrition Assess - Dietary Evaluation Nutrition/Malnutrition Findings: Nutrition Notes Start: 07/15/21 12:08 Freq: Status: Active Protocol: Document 07/23/21 15:25 JORGE (Rec: 07/23/21 15:54 JORGE [id number]) Nutrition Notes Initial or Follow up Reassessment Other Pertinent Diagnosis R-hemicolectomy/open wound, Normocytic anemia, PCM, Thrombocytosis. Current Diet Clear Liquids Diet (since B ). Labs/Tests 07/21: Na 135, BUN 5, Crea 0.4 , Glu 110, Ca 8.3. Pertinent Medications 07/23: D5ns 1,000 ml @ 100 ml/ hr, others nutritionally unremarkable. Height 5 ft 2 in Weight 89.1 kg [place] Body Weight (kg) 50.00 BMI 35.9 Weight Status Obese Subjective/Other Information RD consult for review on diet advancement. PO intake of meals is Fair (50 %). Percent of energy/protein needs met: Prescribed Clear Liquids Diet provides for energy/protein needs (590 Kcal/16 g) during LOS. Burn Absent Trauma Absent GI Symptoms Other Food Allergy No Skin Integrity/Comment Surgical abdominal wound Current % PO Fair (50-74%) Minimum of two criteria No #2 Nutrition Diagnosis Inadequate protein-energy intake Etiology (R) colectomy with end ileostomy. As Evidenced by Signs and Symptoms Fair PO intake of meals (50%). #1 Nutrition Diagnosis Altered GI function Etiology Abdominal abscess, peritonitis , (R) colectomy with end ileostomy. As Evidenced by Signs and Symptoms Surgery performed. Diagnosis Progress(for reassessment Continues documentation) Is patient on ventilator? No Is Patient Ambulatory and/or Out of Bed Yes [facility] [ 1936.025 [id number]] Calculation [facility] Additional Notes Protein: 1.2-1.5 g/Kg; 60-75 g /day (from IBW + critical care ). Fluids: 1 ml/Kcal, or as per MD. Nutrition Intervention Change Diet Order: Continue Clear Liquids Diet as per MD; when pertinent, advance to Regular Diet. Add Supplement/Snack (indicate name/kcal 8 fl oz Ensure Clear; TID /protein ) Provides kCal: 720 Provides Protein (gm) 24 Goal #1 Maintain body weight within +/ -3% of current BWt during LOS. Goal #2 Reach and maintain acceptable chemistry lab values during LOS. Follow-Up By: 07/30/21 Additional Comments Continue monitoring food tolerance, %PO intake of meals , Hydration, and BM.
[2021-08-01] MEDS: SODIUM HYPOCHLORITE, DAKIN'S FULL STRENGTH (0.5%) 473 ML TOPICAL SOLN TP SCH ×3 (00:03→21:16)
[2021-08-01] MEDS: HYDROmorphone 1 MG/1 ML INJ IV PRN ×6 (00:03→21:13)
[2021-08-01] MEDS: D5W/0.45% NACL 1,000 ML IV SCH ×2 (02:38→14:47)
[2021-08-01 06:09] LABS: Hematocrit 25.9 % (30.3-42.9)
[2021-08-01 06:23] LABS: Alanine Aminotransferase 9 units/L (7-56); Albumin 2.1 g/dL (3.9-5); Blood Urea Nitrogen 3 mg/dL (7-17); Calcium 8.1 mg/dL (8.4-10.2); Hemolysis Index 1
[2021-08-01 06:25] LABS: BUN/Creatinine Ratio 6
[2021-08-01] MEDS: HEPARIN 5,000 UNIT/1 ML VIAL SUB-Q SCH ×2 (09:34→21:13)
[2021-08-01] MEDS: FAMOTIDINE 20 MG TAB PO SCH ×2 (09:34→21:13)
[2021-08-01] MEDS: cefTRIAXone/NS 1 GM/50 ML 1 GM/50 ML BAG IV SCH (09:34)
--- NOTE | 2021-08-01 12:32 | Progress Note ---
Assessment and Plan Assessment and plan: This is a 45 years old female with history of psychiatric problem/drug abuse was brought to the emergency room from [facility] because of abdominal pain. Abdominal pain moderate in intensity constant does not radiate aching generalized started since yesterday. Patient also complained of abdominal pain but denies fever, nausea or vomiting. Patient is right colectomy with end ileostomy and omentectomy by Dr. Ruben Colón on 06/29/2021 CT scan of the abdomen done in other hospital shows postsurgical changes from previous bowel resection there is a 9.1 x 6.1 cm fluid collection near the an astomosis in the right hemiabdomen extending to the inferior liver margin and gallbladder fossa concerning for abscess. There is pericholecystic fluid and AN area of hypoattenuation in the inferior margin of the liver which could be a developing abscess currently there is no drainable intrahepatic abscess. A few scattered foci of free air in the abdomen this could be related to the postsurgical changes although an anastomotic leak cannot be excluded. There is additional loculated fluid collection more inferiorly in the anterior pelvis surgical consult patient is recommended The patient was treated with Zosyn 4.5 g IV every 8 hours and clindamycin 600 mg IV every 8 hours. Surgery was consulted with Dr. Miranda Assessment and plan Hypomagnesemia; Replenished per protocol , magnesium level normal today Closely monitor electrolytes --New UTI; gram-negative rods/Klebsiella pneumonia and Enterococcus, sensitive to Rocephin Continue Rocephin, and supportive care --History of abdominal abscess/peritonitis Status post right hemicolectomy /Colostomy and has open wound Patient also has a drain and per discussion with general surgery, patient can go home with the drain Needs outpatient follow-up with wound care and general surgery in 2 weeks Wound cultures results reviewed, continue current management --Colostomy care --Abdominal pain; Treat the underlying cause , pain management --Normocytic anemia Closely monitor H&H, transfuse as needed --Severe protein calorie malnutrition; albumin 1.9 Nutrition supplements, nutrition consult, supportive care --Thrombocytosis - reactive --Hypokalemia-improved. Continue current management DC planning per case management, possible placement with outpatient wound care Plan of care reviewed with the patient and her nurse as well as the case management Hospital course 07/16: IR consulted, continue current medications, Rn Vascular consult. Continue current medications and pain control. Replace potassium 11/18: Patient seen and examined clinically stable at this time no new complaint. Continue supportive care. Awaiting IR intervention. Anticipate discharge in a.m. if cultures results are available 07/18: Patient seen and examined tolerating clear liquid diet which is recommendation by the surgeon. social worker assistant has been consulted to assist with discharge planning and outpatient follow-up considering patient's financial status 07/19 patient is awake and alert and complains of abdominal pain and states that it is 9/10 on the pain scale. She was discharged yesterday. Discussed with rifle case repairer and RN Apparently has issues with discharge as family is refusing to take care of her. Also discussed with general surgery Dr. Miranda 07/20 no acute events overnight. She is awake and alert. Complains of abdominal pain. Lab results reviewed. Discussed with patient's stepfather in person about discharge. Does not look like he is willing to take care of her. manager [place] was present during my discussion 07/21 no acute events overnight. Complains of abdominal pain. Lab results reviewed. Waiting for disposition 07/22: Patient seen and examined, continue supportive care, Per surgeon wound cannot be closed due dehiscence. Case management working on placment. Patient will follow outpatient with surgeon. 07/23: Patient seen and examined, continue supportive care, Per surgeon wound cannot be closed due to dehiscence. Case management working on placement. Patient will follow outpatient with surgeon. 07/24: Patient seen and examined, continue supportive care, Per surgeon wound cannot be closed due to dehiscence. Case management working on placement. Patient will follow outpatient with surgeon. 07/25: Patient awaiting placement. Continue wound care per wound team. 07/26: Patient seen and examined, continue supportive care, Per surgeon wound cannot be closed due to dehiscence. Case management working on placement. Patient will follow outpatient with surgeon. Psychiatry also evaluated the patient and agree with need for placement. No recommendations for acute inpatient psychiatric treatment 07/27: Patient with fever 100.6. Check blood cultures, urinalysis and chest x- ray. Patient previously had IR drainage of what was felt to be a seroma. We will continue to monitor temperature curve 07/28: We will follow-up blood and urine cultures. Urinalysis does reveal UTI. Start antibiotics of Rocephin. Per surgeon wound cannot be closed due to dehiscence. Case management working on placement. Patient will follow outpatient with surgeon. Psychiatry also evaluated the patient and agree with need for placement. No recommendations for acute inpatient psychiatric treatment 07/29: Urine cultures positive for gram-negative rods, continue IV Rocephin, follow culture sensitivities Patient awaiting placement 07/30; urine cultures gram-negative rods Klebsiella pneumonia and Enterococcus sensitive to Rocephin We will continue patient's Rocephin at this point, awaiting placement per case management 07/31; pending placement 08/01; patient's magnesium 1.6, replaced with mag sulfate 2 g, monitor electrolytes, pain medications adjusted 08/02; patient's electrolytes are within normal limits, closely monitor History Interval history: I have seen and examined the patient at the bedside Patient's chart and medications reviewed No new events reported by the nursing staff Patient complains of more pain and asked for more pain medications Hospitalist Physical - Constitutional Vitals: Temp Pulse Resp BP Pulse Ox 98.6 F 99 H 16 123/73 96 08/01/21 11:53 08/01/21 11:53 08/01/21 11:53 08/01/21 11:53 08/01/21 11:53 General appearance: Present: no acute distress, cachectic (Chronically ill looking), obese, other (Chronically ill looking) - EENT Eyes: Present: PERRL, EOM intact - Neck Neck: Present: supple, normal ROM - Respiratory Respiratory effort: normal Respiratory: bilateral: diminished, negative: rales, rhonchi, wheezing - Cardiovascular Rhythm: regular Heart Sounds: Present: S1 & S2 - Extremities Extremities: no ischemia, No edema - Abdominal General gastrointestinal: soft, non-tender, non-distended, normal bowel sounds, other (Colostomy in place, surgical dressing in place) - Integumentary Integumentary: Present: clear, warm - Psychiatric Psychiatric: appropriate mood/affect, cooperative - Neurologic Neurologic: moves all extremities Results - Labs CBC & Chem 7: 08/01/21 04:34 08/02/21 04:35 Labs: Laboratory Last Values WBC 6.9 K/mm3 (4.5-11.0) 07/28/21 06:48 RBC 2.88 M/mm3 (3.65-5.03) L 07/28/21 06:48 Hgb 8.0 gm/dl (10.1-14.3) L 08/01/21 04:34 Hct 25.9 % (30.3-42.9) L 08/01/21 04:34 MCV 87 fl (79-97) 07/28/21 06:48 MCH 28 pg (28-32) 07/28/21 06:48 MCHC 32 % (30-34) 07/28/21 06:48 RDW 14.8 % (13.2-15.2) 07/28/21 06:48 Plt Count 409 K/mm3 (140-440) 07/28/21 06:48 Lymph % (Auto) 26.6 % (13.4-35.0) 07/28/21 06:48 [place] % (Auto) 8.6 % (0.0-7.3) H 07/28/21 06:48 Eos % (Auto) 4.7 % (0.0-4.3) H 07/28/21 06:48 Baso % (Auto) 0.9 % (0.0-1.8) 07/28/21 06:48 Lymph # (Auto) 1.8 K/mm3 (1.2-5.4) 07/28/21 06:48 [place] # (Auto) 0.6 K/mm3 (0.0-0.8) 07/28/21 06:48 Eos # (Auto) 0.3 K/mm3 (0.0-0.4) 07/28/21 06:48 Baso # (Auto) 0.1 K/mm3 (0.0-0.1) 07/28/21 06:48 Seg Neutrophils % 59.2 % (40.0-70.0) 07/28/21 06:48 Seg Neutrophils # 4.1 K/mm3 (1.8-7.7) 07/28/21 06:48 PT 14.6 Sec. (12.2-14.9) 07/15/21 05:24 INR 1.03 (0.87-1.13) 07/15/21 05:24 Sodium 133 mmol/L (137-145) L 08/01/21 04:34 Potassium 3.7 mmol/L (3.6-5.0) 08/01/21 04:34 Chloride 97.5 mmol/L (98-107) L 08/01/21 04:34 Carbon Dioxide 22 mmol/L (22-30) 08/01/21 04:34 Anion Gap 17 mmol/L 08/01/21 04:34 BUN 3 mg/dL (7-17) L 08/01/21 04:34 Creatinine 0.5 mg/dL (0.6-1.2) L 08/01/21 04:34 Estimated GFR > 60 ml/min 08/01/21 04:34 BUN/Creatinine Ratio 6 % 08/01/21 04:34 Glucose 116 mg/dL (65-100) H 08/01/21 04:34 POC Glucose 101 mg/dL (70-105) 07/23/21 12:00 Calcium 8.1 mg/dL (8.4-10.2) L 08/01/21 04:34 Phosphorus 4.30 mg/dL (2.5-4.5) 08/01/21 04:34 Magnesium 1.60 mg/dL (1.7-2.3) L 08/01/21 04:34 Total Bilirubin 0.30 mg/dL (0.1-1.2) 08/01/21 04:34 AST 14 units/L (5-40) 08/01/21 04:34 ALT 9 units/L (7-56) 08/01/21 04:34 Alkaline Phosphatase 257 units/L (35-129) H 08/01/21 04:34 Total Protein 6.1 g/dL (6.3-8.2) L 08/01/21 04:34 Albumin 2.1 g/dL (3.9-5) L 08/01/21 04:34 Albumin/Globulin Ratio 0.5 % 08/01/21 04:34 Urine Color Yellow (Yellow) 07/27/21 16:55 Urine Turbidity Cloudy (Clear) 07/27/21 16:55 Urine pH 5.0 (5.0-7.0) 07/27/21 16:55 Ur Specific [place] 1.011 (1.003-1.030) 07/27/21 16:55 Urine Protein <15 mg/dl mg/dL (Negative) 07/27/21 16:55 Urine Glucose (UA) Neg mg/dL (Negative) 07/27/21 16:55 Urine Ketones Neg mg/dL (Negative) 07/27/21 16:55 Urine Blood Sm (Negative) 07/27/21 16:55 Urine Nitrite Pos (Negative) 07/27/21 16:55 Urine Bilirubin Neg (Negative) 07/27/21 16:55 Urine Urobilinogen < 2.0 mg/dL (<2.0) 07/27/21 16:55 Ur Leukocyte Esterase Lg (Negative) 07/27/21 16:55 Urine WBC (Auto) > 182.0 /HPF (0.0-6.0) H 07/27/21 16:55 Urine RBC (Auto) 14.0 /HPF (0.0-6.0) 07/27/21 16:55 U Epithel Cells (Auto) 6.0 /HPF (0-13.0) 07/27/21 16:55 Urine Bacteria (Auto) 1+ /HPF (Negative) 07/27/21 16:55 Urine Mucus Few /HPF 07/27/21 16:55 Urine Yeast (Budding) 1+ /HPF 07/27/21 16:55 Nasal Screen MRSA (PCR) Negative (Negative) 07/16/21 04:38 Microbiology: Microbiology 07/28/21 14:25 Urine,Catheterized - Straight Catheter Urine Culture - Preliminary Klebsiella Pneumoniae Enterococcus Species 07/27/21 13:54 Peripheral/Venous Blood Culture - Preliminary NO GROWTH AFTER 4 DAYS 07/27/21 13:37 Peripheral/Venous Blood Culture - Preliminary NO GROWTH AFTER 4 DAYS [place]/IV: Voiding Method External Female Catheter Active Medications - Current Medications Current Medications: Generic Name Dose Route Start Last Admin Trade Name Freq PRN Reason Stop Dose Admin Acetaminophen 650 mg 07/15/21 05:11 07/30/21 17:11 Acetaminophen 325 Mg Tab PO 650 mg Q4H PRN Administration Pain MILD(1-3)/Fever >100.5/PAYNE Albuterol 2.5 mg 07/15/21 05:11 Albuterol 2.5 Mg/3 Ml Nebu IH Q4HRT PRN Shortness Of Breath Famotidine 20 mg 07/29/21 10:00 08/01/21 09:34 Famotidine 20 Mg Tab PO 20 mg BID SOILA Administration Heparin Sodium (Porcine) 5,000 unit 07/15/21 10:00 08/01/21 09:34 Heparin 5,000 Unit/1 Ml Vial SUB-Q 5,000 unit Q12HR SOILA Administration Hydromorphone HCl 0.5 mg 08/01/21 11:07 Hydromorphone 1 Mg/1 Ml Inj IV Q6H PRN Pain , Severe (7-10) Dextrose/Sodium Chloride 1,000 mls @ 100 mls/hr 07/15/21 06:00 08/01/21 02:38 D5/0.45ns IV 100 mls/hr DIRECT SOILA Administration Ceftriaxone Sodium 1 gm in 50 mls @ 100 mls/hr 07/28/21 10:00 08/01/21 09:34 Rocephin/Ns 1 Gm/50 Ml IV 08/03/21 10:29 100 mls/hr Q24HR SOILA Administration Protocol Magnesium Sulfate 2 gm in 50 mls @ 25 mls/hr 08/01/21 13:00 Magnesium Sulfate 2gm/50ml IV 08/01/21 14:59 ONCE ONE Morphine Sulfate 2 mg 07/15/21 05:11 07/30/21 06:30 Morphine 2 Mg/1 Ml Inj IV 2 mg Q4H PRN Administration Pain, Moderate (4-6) Ondansetron HCl 4 mg 07/15/21 05:11 07/25/21 21:14 Ondansetron 4 Mg/2 Ml Inj IV 4 mg Q8H PRN Administration Nausea And Vomiting Oxycodone/Acetaminophen 1 tab 08/01/21 11:04 Oxycodone /Acetaminophen 5-325mg Tab PO Q6H PRN Pain, Moderate (4-6) Sodium Chloride 10 ml 07/15/21 10:00 08/01/21 09:36 Sodium Chloride 0.9% 10 Ml Flush Syringe IV 10 ml BID SOILA Administration Sodium Chloride 10 ml 07/15/21 05:11 07/27/21 04:12 Sodium Chloride 0.9% 10 Ml Flush Syringe IV 10 ml PRN PRN Administration LINE FLUSH Sodium Hypochlorite 1 applic 07/20/21 10:00 08/01/21 00:03 Sodium Hypochlorite, Dakin's Full Strength (0.5%) 473 Ml Topical Soln TP 1 applicatio BID SOILA Administration Nutrition/Malnutrition Assess - Dietary Evaluation Nutrition/Malnutrition Findings: Nutrition Notes Start: 07/15/21 12:08 Freq: Status: Active Protocol: Document 07/23/21 15:25 JORGE (Rec: 07/23/21 15:54 JORGE [id number]) Nutrition Notes Initial or Follow up Reassessment Other Pertinent Diagnosis R-hemicolectomy/open wound, Normocytic anemia, PCM, Thrombocytosis. Current Diet Clear Liquids Diet (since B ). Labs/Tests 07/21: Na 135, BUN 5, Crea 0.4 , Glu 110, Ca 8.3. Pertinent Medications 07/23: D5ns 1,000 ml @ 100 ml/ hr, others nutritionally unremarkable. Height 5 ft 2 in Weight 89.1 kg [facility] Body Weight (kg) 50.00 BMI 35.9 Weight Status Obese Subjective/Other Information RD consult for review on diet advancement. PO intake of meals is Fair (50 %). Percent of energy/protein needs met: Prescribed Clear Liquids Diet provides for energy/protein needs (590 Kcal/16 g) during LOS. Burn Absent Trauma Absent GI Symptoms Other Food Allergy No Skin Integrity/Comment Surgical abdominal wound Current % PO Fair (50-74%) Minimum of two criteria No #2 Nutrition Diagnosis Inadequate protein-energy intake Etiology (R) colectomy with end ileostomy. As Evidenced by Signs and Symptoms Fair PO intake of meals (50%). #1 Nutrition Diagnosis Altered GI function Etiology Abdominal abscess, peritonitis , (R) colectomy with end ileostomy. As Evidenced by Signs and Symptoms Surgery performed. Diagnosis Progress(for reassessment Continues documentation) Is patient on ventilator? No Is Patient Ambulatory and/or Out of Bed Yes REE-([facility]-ambulatory/OOB) [ 1936.025 [id number]] Calculation Used for Recommendations [facility] Additional Notes Protein: 1.2-1.5 g/Kg; 60-75 g /day (from IBW + critical care ). Fluids: 1 ml/Kcal, or as per MD. Nutrition Intervention Change Diet Order: Continue Clear Liquids Diet as per MD; when pertinent, advance to Regular Diet. Add Supplement/Snack (indicate name/kcal 8 fl oz Ensure Clear; TID /protein ) Provides kCal: 720 Provides Protein (gm) 24 Goal #1 Maintain body weight within +/ -3% of current BWt during LOS. Goal #2 Reach and maintain acceptable chemistry lab values during LOS. Follow-Up By: 07/30/21 Additional Comments Continue monitoring food tolerance, %PO intake of meals , Hydration, and BM.
[2021-08-01] MEDS: oxyCODONE /ACETAMINOPHEN 5-325MG TAB PO PRN ×2 (12:40→19:41)
[2021-08-01] MEDS ORDERED: MAGNESIUM SULFATE 2 GM/50 ML BAG IV ONE (13:00)
[2021-08-02] MEDS: D5W/0.45% NACL 1,000 ML IV SCH (04:02)
[2021-08-02] MEDS: HYDROmorphone 1 MG/1 ML INJ IV PRN ×3 (04:03→17:56)
[2021-08-02] MEDS: HEPARIN 5,000 UNIT/1 ML VIAL SUB-Q SCH ×2 (09:06→21:20)
[2021-08-02] MEDS: FAMOTIDINE 20 MG TAB PO SCH ×2 (09:06→21:20)
[2021-08-02] MEDS: cefTRIAXone/NS 1 GM/50 ML 1 GM/50 ML BAG IV SCH (09:07)
[2021-08-02] MEDS: SODIUM HYPOCHLORITE, DAKIN'S FULL STRENGTH (0.5%) 473 ML TOPICAL SOLN TP SCH ×2 (09:13→21:19)
[2021-08-02] MEDS: oxyCODONE /ACETAMINOPHEN 5-325MG TAB PO PRN (21:18)
[2021-08-03] MEDS: HYDROmorphone 1 MG/1 ML INJ IV PRN ×4 (00:58→18:48)
[2021-08-03] MEDS: FAMOTIDINE 20 MG TAB PO SCH ×2 (09:27→22:20)
[2021-08-03] MEDS: HEPARIN 5,000 UNIT/1 ML VIAL SUB-Q SCH ×2 (09:28→22:19)
[2021-08-03] MEDS: cefTRIAXone/NS 1 GM/50 ML 1 GM/50 ML BAG IV SCH (09:28)
[2021-08-03] MEDS: SODIUM HYPOCHLORITE, DAKIN'S FULL STRENGTH (0.5%) 473 ML TOPICAL SOLN TP SCH ×2 (09:28→22:19)
--- NOTE | 2021-08-03 10:58 | Progress Note ---
Assessment and Plan Assessment and plan: This is a 45 years old female with history of psychiatric problem/drug abuse was brought to the emergency room from [facility] because of abdominal pain. Abdominal pain moderate in intensity constant does not radiate aching generalized started since yesterday. Patient also complained of abdominal pain but denies fever, nausea or vomiting. Patient is right colectomy with end ileostomy and omentectomy by Dr. Ruben Colón on 06/29/2021 CT scan of the abdomen done in other hospital shows postsurgical changes from previous bowel resection there is a 9.1 x 6.1 cm fluid collection near the an astomosis in the right hemiabdomen extending to the inferior liver margin and gallbladder fossa concerning for abscess. There is pericholecystic fluid and AN area of hypoattenuation in the inferior margin of the liver which could be a developing abscess currently there is no drainable intrahepatic abscess. A few scattered foci of free air in the abdomen this could be related to the postsurgical changes although an anastomotic leak cannot be excluded. There is additional loculated fluid collection more inferiorly in the anterior pelvis surgical consult patient is recommended The patient was treated with Zosyn 4.5 g IV every 8 hours and clindamycin 600 mg IV every 8 hours. Surgery was consulted with Dr. Miranda Assessment and plan --Hypomagnesemia; Replenished per protocol , magnesium level normal today Closely monitor electrolytes --New UTI; gram-negative rods/Klebsiella pneumonia and Enterococcus, sensitive to Rocephin Continue Rocephin, and supportive care --History of abdominal abscess/peritonitis Status post right hemicolectomy /Colostomy and has open wound Patient also has a drain and per discussion with general surgery, patient can go home with the drain Needs outpatient follow-up with wound care and general surgery in 2 weeks Wound cultures results reviewed, continue current management, wound care --Colostomy care; --Abdominal pain; Treat the underlying cause , pain management --Normocytic anemia Closely monitor H&H, transfuse as needed --Severe protein calorie malnutrition; albumin 1.9 Nutrition supplements, nutrition consult, supportive care --Thrombocytosis - reactive --Hypokalemia-resolved, monitor electrolytes Continue current management DC planning per case management, possible placement with outpatient wound care Plan of care reviewed with the patient and her nurse as well as the case [facility] course 07/16: IR consulted, continue current medications, Treasurer consult. Continue current medications and pain control. Replace potassium 07/17: Patient seen and examined clinically stable at this time no new complaint. Continue supportive care. Awaiting IR intervention. Anticipate discharge in a.m. if cultures results are available 07/18: Patient seen and examined tolerating clear liquid diet which is recommendation by the surgeon. warehouse insulation worker has been consulted to assist with discharge planning and outpatient follow-up considering patient's financial status 07/19 patient is awake and alert and complains of abdominal pain and states that it is 9/10 on the pain scale. She was discharged yesterday. Discussed with watch case polisher and RN Apparently has issues with discharge as family is refusing to take care of her. Also discussed with general surgery Dr. Miranda 07/20 no acute events overnight. She is awake and alert. Complains of abdominal pain. Lab results reviewed. Discussed with patient's stepfather in person about discharge. Does not look like he is willing to take care of her. apartment leasing manager was present during my discussion 07/21 no acute events overnight. Complains of abdominal pain. Lab results reviewed. Waiting for disposition 07/22: Patient seen and examined, continue supportive care, Per surgeon wound c annot be closed due dehiscence. Case management working on placment. Patient will follow outpatient with surgeon. 07/23: Patient seen and examined, continue supportive care, Per surgeon wound cannot be closed due to dehiscence. Case management working on placement. Patient will follow outpatient with surgeon. 07/24: Patient seen and examined, continue supportive care, Per surgeon wound cannot be closed due to dehiscence. Case management working on placement. Patient will follow outpatient with surgeon. 07/25: Patient awaiting placement. Continue wound care per wound team. 07/26: Patient seen and examined, continue supportive care, Per surgeon wound cannot be closed due to dehiscence. Case management working on placement. Patient will follow outpatient with surgeon. Psychiatry also evaluated the patient and agree with need for placement. No recommendations for acute i npatient psychiatric treatment 07/27: Patient with fever 100.6. Check blood cultures, urinalysis and chest x- ray. Patient previously had IR drainage of what was felt to be a seroma. We will continue to monitor temperature curve 07/28: We will follow-up blood and urine cultures. Urinalysis does reveal UTI. Start antibiotics of Rocephin. Per surgeon wound cannot be closed due to dehiscence. Case management working on placement. Patient will follow outpatient with surgeon. Psychiatry also evaluated the patient and agree with need for placement. No recommendations for acute inpatient psychiatric treatment 07/29: Urine cultures positive for gram-negative rods, continue IV Rocephin, fo llow culture sensitivities Patient awaiting placement 07/30; urine cultures gram-negative rods Klebsiella pneumonia and Enterococcus sensitive to Rocephin We will continue patient's Rocephin at this point, awaiting placement per case management 07/31; pending placement 08/01; patient's magnesium 1.6, replaced with mag sulfate 2 g, monitor electrolytes, pain medications adjusted 08/02; patient's electrolytes are within normal limits, closely monitor 08/03; patient is medically stable, cleared by surgery, pending placement History Interval history: I have seen and examined the patient at the bedside this morning Patient's chart and medications reviewed No new events reported by the nursing staff Patient complains of generalized tiredness Awaiting placement Hospitalist Physical - Constitutional Vitals: Temp Pulse Resp BP Pulse Ox 98.0 F 92 H 20 116/64 89 08/03/21 00:41 08/03/21 04:27 08/03/21 00:41 08/03/21 06:00 08/03/21 04:27 General appearance: Present: no acute distress, cachectic (Chronically ill looking), obese, other (Chronically ill looking) - EENT Eyes: Present: PERRL, EOM intact - Neck Neck: Present: supple, normal ROM - Respiratory Respiratory effort: normal Respiratory: bilateral: diminished, negative: rales, rhonchi, wheezing - Cardiovascular Rhythm: regular Heart Sounds: Present: S1 & S2 - Extremities Extremities: no ischemia, No edema - Abdominal General gastrointestinal: soft, non-tender, non-distended, normal bowel sounds, other (Surgical dressing in place, colostomy intact) - Integumentary Integumentary: Present: clear, warm - Psychiatric Psychiatric: appropriate mood/affect, cooperative - Neurologic Neurologic: CNII-XII intact, moves all extremities Results - Labs CBC & Chem 7: 08/01/21 04:34 08/02/21 04:35 Labs: Laboratory Last Values WBC 6.9 K/mm3 (4.5-11.0) 07/28/21 06:48 RBC 2.88 M/mm3 (3.65-5.03) L 07/28/21 06:48 Hgb 8.0 gm/dl (10.1-14.3) L 08/01/21 04:34 Hct 25.9 % (30.3-42.9) L 08/01/21 04:34 MCV 87 fl (79-97) 07/28/21 06:48 MCH 28 pg (28-32) 07/28/21 06:48 MCHC 32 % (30-34) 07/28/21 06:48 RDW 14.8 % (13.2-15.2) 07/28/21 06:48 Plt Count 409 K/mm3 (140-440) 07/28/21 06:48 Lymph % (Auto) 26.6 % (13.4-35.0) 07/28/21 06:48 [place] % (Auto) 8.6 % (0.0-7.3) H 07/28/21 06:48 Eos % (Auto) 4.7 % (0.0-4.3) H 07/28/21 06:48 Baso % (Auto) 0.9 % (0.0-1.8) 07/28/21 06:48 Lymph # (Auto) 1.8 K/mm3 (1.2-5.4) 07/28/21 06:48 [place] # (Auto) 0.6 K/mm3 (0.0-0.8) 07/28/21 06:48 Eos # (Auto) 0.3 K/mm3 (0.0-0.4) 07/28/21 06:48 Baso # (Auto) 0.1 K/mm3 (0.0-0.1) 07/28/21 06:48 Seg Neutrophils % 59.2 % (40.0-70.0) 07/28/21 06:48 Seg Neutrophils # 4.1 K/mm3 (1.8-7.7) 07/28/21 06:48 PT 14.6 Sec. (12.2-14.9) 07/15/21 05:24 INR 1.03 (0.87-1.13) 07/15/21 05:24 Sodium 133 mmol/L (137-145) L 08/01/21 04:34 Potassium 3.6 mmol/L (3.6-5.0) 08/02/21 04:35 Chloride 97.5 mmol/L (98-107) L 08/01/21 04:34 Carbon Dioxide 22 mmol/L (22-30) 08/01/21 04:34 Anion Gap 17 mmol/L 08/01/21 04:34 BUN 3 mg/dL (7-17) L 08/01/21 04:34 Creatinine 0.5 mg/dL (0.6-1.2) L 08/01/21 04:34 Estimated GFR > 60 ml/min 08/01/21 04:34 BUN/Creatinine Ratio 6 % 08/01/21 04:34 Glucose 116 mg/dL (65-100) H 08/01/21 04:34 POC Glucose 101 mg/dL (70-105) 07/23/21 12:00 Calcium 8.1 mg/dL (8.4-10.2) L 08/01/21 04:34 Phosphorus 4.30 mg/dL (2.5-4.5) 08/01/21 04:34 Magnesium 2.00 mg/dL (1.7-2.3) 08/02/21 04:35 Total Bilirubin 0.30 mg/dL (0.1-1.2) 08/01/21 04:34 AST 14 units/L (5-40) 08/01/21 04:34 ALT 9 units/L (7-56) 08/01/21 04:34 Alkaline Phosphatase 257 units/L (35-129) H 08/01/21 04:34 Total Protein 6.1 g/dL (6.3-8.2) L 08/01/21 04:34 Albumin 2.1 g/dL (3.9-5) L 08/01/21 04:34 Albumin/Globulin Ratio 0.5 % 08/01/21 04:34 Urine Color Yellow (Yellow) 07/27/21 16:55 Urine Turbidity Cloudy (Clear) 07/27/21 16:55 Urine pH 5.0 (5.0-7.0) 07/27/21 16:55 Ur Specific [place] 1.011 (1.003-1.030) 07/27/21 16:55 Urine Protein <15 mg/dl mg/dL (Negative) 07/27/21 16:55 Urine Glucose (UA) Neg mg/dL (Negative) 07/27/21 16:55 Urine Ketones Neg mg/dL (Negative) 07/27/21 16:55 Urine Blood Sm (Negative) 07/27/21 16:55 Urine Nitrite Pos (Negative) 07/27/21 16:55 Urine Bilirubin Neg (Negative) 07/27/21 16:55 Urine Urobilinogen < 2.0 mg/dL (<2.0) 07/27/21 16:55 Ur Leukocyte Esterase Lg (Negative) 07/27/21 16:55 Urine WBC (Auto) > 182.0 /HPF (0.0-6.0) H 07/27/21 16:55 Urine RBC (Auto) 14.0 /HPF (0.0-6.0) 07/27/21 16:55 U Epithel Cells (Auto) 6.0 /HPF (0-13.0) 07/27/21 16:55 Urine Bacteria (Auto) 1+ /HPF (Negative) 07/27/21 16:55 Urine Mucus Few /HPF 07/27/21 16:55 Urine Yeast (Budding) 1+ /HPF 07/27/21 16:55 Nasal Screen MRSA (PCR) Negative (Negative) 07/16/21 04:38 Shelton/IV: Voiding Method Toilet Active Medications - Current Medications Current Medications: Generic Name Dose Route Start Last Admin Trade Name Freq PRN Reason Stop Dose Admin Acetaminophen 650 mg 07/15/21 05:11 07/30/21 17:11 Acetaminophen 325 Mg Tab PO 650 mg Q4H PRN Administration Pain MILD(1-3)/Fever >100.5/PAYNE Albuterol 2.5 mg 07/15/21 05:11 Albuterol 2.5 Mg/3 Ml Nebu IH Q4HRT PRN Shortness Of Breath Famotidine 20 mg 07/29/21 10:00 08/03/21 09:27 Famotidine 20 Mg Tab PO 20 mg BID SOILA Administration Heparin Sodium (Porcine) 5,000 unit 07/15/21 10:00 08/03/21 09:28 Heparin 5,000 Unit/1 Ml Vial SUB-Q 5,000 unit Q12HR SOILA Administration Hydromorphone HCl 0.5 mg 08/01/21 11:07 08/03/21 06:20 Hydromorphone 1 Mg/1 Ml Inj IV 0.5 mg Q6H PRN Administration Pain , Severe (7-10) Morphine Sulfate 2 mg 07/15/21 05:11 07/30/21 06:30 Morphine 2 Mg/1 Ml Inj IV 2 mg Q4H PRN Administration Pain, Moderate (4-6) Ondansetron HCl 4 mg 07/15/21 05:11 07/25/21 21:14 Ondansetron 4 Mg/2 Ml Inj IV 4 mg Q8H PRN Administration Nausea And Vomiting Oxycodone/Acetaminophen 1 tab 08/01/21 11:04 08/02/21 21:18 Oxycodone /Acetaminophen 5-325mg Tab PO 1 tab Q6H PRN Administration Pain, Moderate (4-6) Sodium Chloride 10 ml 07/15/21 10:00 08/03/21 09:28 Sodium Chloride 0.9% 10 Ml Flush Syringe IV 10 ml BID SOILA Administration Sodium Chloride 10 ml 07/15/21 05:11 07/27/21 04:12 Sodium Chloride 0.9% 10 Ml Flush Syringe IV 10 ml PRN PRN Administration LINE FLUSH Sodium Hypochlorite 1 applic 07/20/21 10:00 08/03/21 09:28 Sodium Hypochlorite, Dakin's Full Strength (0.5%) 473 Ml Topical Soln TP 1 applicatio BID SOILA Administration Nutrition/Malnutrition Assess - Dietary Evaluation Nutrition/Malnutrition Findings: Nutrition Notes Start: 07/15/21 12:08 Freq: Status: Active Protocol: Document 08/01/21 17:34 JORGE (Rec: 08/01/21 17:47 JORGE [id number]) Nutrition Notes Initial or Follow up Brief Note Current Diet Regular Diet (since L 07/26). Labs/Tests 08/01: Na 133, Cl 97.5, BUN 3, Crea 0.5, Glu 116, Ca 6.1, Mg 1.6, AlkPhos 257, Tpro 6.1, Alb 2.1. Pertinent Medications 08/01: D5/0.45ns 1,000 ml @ 100 ml/hr, others nutritionally unremarkable. Height 5 ft 2 in Weight 85.4 kg [place] Body Weight (kg) 50.00 BMI 34.4 Weight change and time frame 5.318 Kg body weight loss since 07/15 reported. Weight Status Obese Subjective/Other Information RD consult for routine F/U on Dietary advancement. PT appears to tolerate well the regular diet. Percent of energy/protein needs met: Prescribed Regular Diet provides for energy/protein needs (2,289 Kcal/89 g) during LOS. Current % PO Fair (50-74%) Nutrition Intervention Change Diet Order: Continue Regular Diet. Add Supplement/Snack (indicate name/kcal 8 fl oz Ensure Clear; TID /protein ) Provides kCal: 720 Provides Protein (gm) 24 Follow-Up By: 08/13/21 Additional Comments Continue monitoring food tolerance, %PO intake of meals , Hydration, and BM.
[2021-08-03] MEDS: MORPHINE 2 MG/1 ML INJ IV PRN (22:23)
[2021-08-04] MEDS: HYDROmorphone 1 MG/1 ML INJ IV PRN ×4 (03:00→22:19)
[2021-08-04] MEDS: HEPARIN 5,000 UNIT/1 ML VIAL SUB-Q SCH ×2 (09:32→22:18)
[2021-08-04] MEDS: FAMOTIDINE 20 MG TAB PO SCH ×2 (09:32→22:19)
--- NOTE | 2021-08-04 12:05 | Progress Note ---
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 Pneumoniae & E. Faecium #Normocytic anemia -stable -Hgb 8 -will transfuse for Hgb less than 7 #Severe protein calorie malnutrition -albumin 2.1 -nutrition consulted #Hypomagnesemia #Hypokalemia -will continue to replete and monitor #Substance abuse disorder -history of methamphetamine use #Disposition -Patient homeless and self pay, case management/social work searching for homeless shelters to safely discharge patient -Patient capable of managing her own wound care Disposition Plan: pending safe discharge History Interval history: No acute events overnight. Patient requesting IV pain medications. No other complaints at this time. Hospitalist Physical - Physical exam Narrative exam: GENERAL: Well-developed well-nourished. Sitting on the side of the bed in no acute distress. HEENT: Normocephalic. Atraumatic. CHEST/LUNGS: CTAB on room air HEART/CARDIOVASCULAR: RRR. No murmur, rubs or gallops appreciated. ABDOMEN: Surgical scar dressing intact. +ostomy. +BS. NT/ND. SKIN: No rashes noted. NEURO: No focal motor deficit. Follows all commands, MUSCULOSKELETAL: No joint effusion EXTREMITIES: No cyanosis, clubbing or edema. PSYCH: Cooperative. - Constitutional Vitals: Temp Pulse Resp BP Pulse Ox 98.1 F 96 H 16 109/64 96 08/04/21 07:50 08/04/21 07:50 08/04/21 07:50 08/04/21 07:50 08/04/21 10:00 General appearance: Present: no acute distress, cachectic (Chronically ill looking), obese, other (Chronically ill looking) Results - Labs CBC & Chem 7: 08/01/21 04:34 08/02/21 04:35 Labs: Laboratory Last Values WBC 6.9 K/mm3 (4.5-11.0) 07/28/21 06:48 RBC 2.88 M/mm3 (3.65-5.03) L 07/28/21 06:48 Hgb 8.0 gm/dl (10.1-14.3) L 08/01/21 04:34 Hct 25.9 % (30.3-42.9) L 08/01/21 04:34 MCV 87 fl (79-97) 07/28/21 06:48 MCH 28 pg (28-32) 07/28/21 06:48 MCHC 32 % (30-34) 07/28/21 06:48 RDW 14.8 % (13.2-15.2) 07/28/21 06:48 Plt Count 409 K/mm3 (140-440) 07/28/21 06:48 Lymph % (Auto) 26.6 % (13.4-35.0) 07/28/21 06:48 [place] % (Auto) 8.6 % (0.0-7.3) H 07/28/21 06:48 Eos % (Auto) 4.7 % (0.0-4.3) H 07/28/21 06:48 Baso % (Auto) 0.9 % (0.0-1.8) 07/28/21 06:48 Lymph # (Auto) 1.8 K/mm3 (1.2-5.4) 07/28/21 06:48 [place] # (Auto) 0.6 K/mm3 (0.0-0.8) 07/28/21 06:48 Eos # (Auto) 0.3 K/mm3 (0.0-0.4) 07/28/21 06:48 Baso # (Auto) 0.1 K/mm3 (0.0-0.1) 07/28/21 06:48 Seg Neutrophils % 59.2 % (40.0-70.0) 07/28/21 06:48 Seg Neutrophils # 4.1 K/mm3 (1.8-7.7) 07/28/21 06:48 PT 14.6 Sec. (12.2-14.9) 07/15/21 05:24 INR 1.03 (0.87-1.13) 07/15/21 05:24 Sodium 133 mmol/L (137-145) L 08/01/21 04:34 Potassium 3.6 mmol/L (3.6-5.0) 08/02/21 04:35 Chloride 97.5 mmol/L (98-107) L 08/01/21 04:34 Carbon Dioxide 22 mmol/L (22-30) 08/01/21 04:34 Anion Gap 17 mmol/L 08/01/21 04:34 BUN 3 mg/dL (7-17) L 08/01/21 04:34 Creatinine 0.5 mg/dL (0.6-1.2) L 08/01/21 04:34 Estimated GFR > 60 ml/min 08/01/21 04:34 BUN/Creatinine Ratio 6 % 08/01/21 04:34 Glucose 116 mg/dL (65-100) H 08/01/21 04:34 POC Glucose 101 mg/dL (70-105) 07/23/21 12:00 Calcium 8.1 mg/dL (8.4-10.2) L 08/01/21 04:34 Phosphorus 4.30 mg/dL (2.5-4.5) 08/01/21 04:34 Magnesium 2.00 mg/dL (1.7-2.3) 08/02/21 04:35 Total Bilirubin 0.30 mg/dL (0.1-1.2) 08/01/21 04:34 AST 14 units/L (5-40) 08/01/21 04:34 ALT 9 units/L (7-56) 08/01/21 04:34 Alkaline Phosphatase 257 units/L (35-129) H 08/01/21 04:34 Total Protein 6.1 g/dL (6.3-8.2) L 08/01/21 04:34 Albumin 2.1 g/dL (3.9-5) L 08/01/21 04:34 Albumin/Globulin Ratio 0.5 % 08/01/21 04:34 Urine Color Yellow (Yellow) 07/27/21 16:55 Urine Turbidity Cloudy (Clear) 07/27/21 16:55 Urine pH 5.0 (5.0-7.0) 07/27/21 16:55 Ur Specific [place] 1.011 (1.003-1.030) 07/27/21 16:55 Urine Protein <15 mg/dl mg/dL (Negative) 07/27/21 16:55 Urine Glucose (UA) Neg mg/dL (Negative) 07/27/21 16:55 Urine Ketones Neg mg/dL (Negative) 07/27/21 16:55 Urine Blood Sm (Negative) 07/27/21 16:55 Urine Nitrite Pos (Negative) 07/27/21 16:55 Urine Bilirubin Neg (Negative) 07/27/21 16:55 Urine Urobilinogen < 2.0 mg/dL (<2.0) 07/27/21 16:55 Ur Leukocyte Esterase Lg (Negative) 07/27/21 16:55 Urine WBC (Auto) > 182.0 /HPF (0.0-6.0) H 07/27/21 16:55 Urine RBC (Auto) 14.0 /HPF (0.0-6.0) 07/27/21 16:55 U Epithel Cells (Auto) 6.0 /HPF (0-13.0) 07/27/21 16:55 Urine Bacteria (Auto) 1+ /HPF (Negative) 07/27/21 16:55 Urine Mucus Few /HPF 07/27/21 16:55 Urine Yeast (Budding) 1+ /HPF 07/27/21 16:55 Nasal Screen MRSA (PCR) Negative (Negative) 07/16/21 04:38 Shelton/IV: Voiding Method Bedside Commode Active Medications - Current Medications Current Medications: Generic Name Dose Route Start Last Admin Trade Name Freq PRN Reason Stop Dose Admin Acetaminophen 650 mg 07/15/21 05:11 07/30/21 17:11 Acetaminophen 325 Mg Tab PO 650 mg Q4H PRN Administration Pain MILD(1-3)/Fever >100.5/PAYNE Albuterol 2.5 mg 07/15/21 05:11 Albuterol 2.5 Mg/3 Ml Nebu IH Q4HRT PRN Shortness Of Breath Famotidine 20 mg 07/29/21 10:00 08/04/21 09:32 Famotidine 20 Mg Tab PO 20 mg BID SOILA Administration Heparin Sodium (Porcine) 5,000 unit 07/15/21 10:00 08/04/21 09:32 Heparin 5,000 Unit/1 Ml Vial SUB-Q 5,000 unit Q12HR SOILA Administration Hydromorphone HCl 0.5 mg 08/01/21 11:07 08/04/21 09:31 Hydromorphone 1 Mg/1 Ml Inj IV 0.5 mg Q6H PRN Administration Pain , Severe (7-10) Morphine Sulfate 2 mg 07/15/21 05:11 08/03/21 22:23 Morphine 2 Mg/1 Ml Inj IV 2 mg Q4H PRN Administration Pain, Moderate (4-6) Ondansetron HCl 4 mg 07/15/21 05:11 07/25/21 21:14 Ondansetron 4 Mg/2 Ml Inj IV 4 mg Q8H PRN Administration Nausea And Vomiting Oxycodone/Acetaminophen 1 tab 08/01/21 11:04 08/02/21 21:18 Oxycodone /Acetaminophen 5-325mg Tab PO 1 tab Q6H PRN Administration Pain, Moderate (4-6) Sodium Chloride 10 ml 07/15/21 10:00 08/04/21 09:32 Sodium Chloride 0.9% 10 Ml Flush Syringe IV 10 ml BID SOILA Administration Sodium Chloride 10 ml 07/15/21 05:11 08/04/21 03:02 Sodium Chloride 0.9% 10 Ml Flush Syringe IV 10 ml PRN PRN Administration LINE FLUSH Sodium Hypochlorite 1 applic 07/20/21 10:00 08/03/21 22:19 Sodium Hypochlorite, Dakin's Full Strength (0.5%) 473 Ml Topical Soln TP 1 applicatio BID SOILA Administration Nutrition/Malnutrition Assess - Dietary Evaluation Nutrition/Malnutrition Findings: Nutrition Notes Start: 07/15/21 12:08 Freq: Status: Active Protocol: Document 08/01/21 17:34 JORGE (Rec: 08/01/21 17:47 JORGE [id number]) Nutrition Notes Initial or Follow up Brief Note Current Diet Regular Diet (since L 07/26). Labs/Tests 08/01: Na 133, Cl 97.5, BUN 3, Crea 0.5, Glu 116, Ca 6.1, Mg 1.6, AlkPhos 257, Tpro 6.1, Alb 2.1. Pertinent Medications 08/01: D5/0.45ns 1,000 ml @ 100 ml/hr, others nutritionally unremarkable. Height 5 ft 2 in Weight 85.4 kg [place] Body Weight (kg) 50.00 BMI 34.4 Weight change and time frame 5.318 Kg body weight loss since 07/15 reported. Weight Status Obese Subjective/Other Information RD consult for routine F/U on Dietary advancement. PT appears to tolerate well the regular diet. Percent of energy/protein needs met: Prescribed Regular Diet provides for energy/protein needs (2,289 Kcal/89 g) during LOS. Current % PO Fair (50-74%) Nutrition Intervention Change Diet Order: Continue Regular Diet. Add Supplement/Snack (indicate name/kcal 8 fl oz Ensure Clear; TID /protein ) Provides kCal: 720 Provides Protein (gm) 24 Follow-Up By: 08/13/21 Additional Comments Continue monitoring food tolerance, %PO intake of meals , Hydration, and BM.
[2021-08-04] MEDS: SODIUM HYPOCHLORITE, DAKIN'S FULL STRENGTH (0.5%) 473 ML TOPICAL SOLN TP SCH ×2 (18:11→22:18)
[2021-08-04] MEDS: MORPHINE 2 MG/1 ML INJ IV PRN (18:12)
[2021-08-05] MEDS: MORPHINE 2 MG/1 ML INJ IV PRN ×4 (03:30→23:58)
[2021-08-05] MEDS: ONDANSETRON 4 MG/2 ML INJ IV PRN ×2 (03:46→12:47)
[2021-08-05] MEDS: HYDROmorphone 1 MG/1 ML INJ IV PRN (06:57)
[2021-08-05] MEDS ORDERED: oxyCODONE /ACETAMINOPHEN 5-325MG TAB PO PRN (08:00)
[2021-08-05] MEDS: SODIUM HYPOCHLORITE, DAKIN'S FULL STRENGTH (0.5%) 473 ML TOPICAL SOLN TP SCH (12:46)
[2021-08-05] MEDS: HEPARIN 5,000 UNIT/1 ML VIAL SUB-Q SCH ×2 (12:47→21:11)
[2021-08-05] MEDS: FAMOTIDINE 20 MG TAB PO SCH ×2 (12:47→21:11)
--- NOTE | 2021-08-05 13:20 | Progress Note ---
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 Pneumoniae & E. Faecium #Normocytic anemia -stable -Hgb 8 -will transfuse for Hgb less than 7 #Severe protein calorie malnutrition -albumin 2.1 -nutrition consulted #Hypomagnesemia #Hypokalemia -will continue to replete and monitor #Substance abuse disorder -history of methamphetamine use #Disposition -Patient homeless and self pay, case management/social work searching for homeless shelters to safely discharge patient -Patient capable of managing her own wound care Disposition Plan: pending residential placement History Interval history: No acute events overnight. Patient reports 10/10 pain all over. No other complaints at this time. Hospitalist Physical - Physical exam Narrative exam: GENERAL: Well-developed well-nourished. Sitting on the side of the bed in no acute distress. HEENT: Normocephalic. Atraumatic. CHEST/LUNGS: CTAB on room air HEART/CARDIOVASCULAR: RRR. No murmur, rubs or gallops appreciated. ABDOMEN: Surgical scar dressing intact. +ostomy. +BS. NT/ND. SKIN: No rashes noted. NEURO: No focal motor deficit. Follows all commands, MUSCULOSKELETAL: No joint effusion EXTREMITIES: No cyanosis, clubbing or edema. PSYCH: Cooperative. - Constitutional Vitals: Temp Pulse Resp BP Pulse Ox 97.9 F 96 H 18 110/70 98 08/05/21 11:46 08/05/21 11:46 08/05/21 11:46 08/05/21 11:46 08/05/21 11:46 General appearance: Present: no acute distress, cachectic (Chronically ill looking), obese, other (Chronically ill looking) Results - Labs CBC & Chem 7: 08/01/21 04:34 08/02/21 04:35 Labs: Laboratory Last Values WBC 6.9 K/mm3 (4.5-11.0) 07/28/21 06:48 RBC 2.88 M/mm3 (3.65-5.03) L 07/28/21 06:48 Hgb 8.0 gm/dl (10.1-14.3) L 08/01/21 04:34 Hct 25.9 % (30.3-42.9) L 08/01/21 04:34 MCV 87 fl (79-97) 07/28/21 06:48 MCH 28 pg (28-32) 07/28/21 06:48 MCHC 32 % (30-34) 07/28/21 06:48 RDW 14.8 % (13.2-15.2) 07/28/21 06:48 Plt Count 409 K/mm3 (140-440) 07/28/21 06:48 Lymph % (Auto) 26.6 % (13.4-35.0) 07/28/21 06:48 Rogers % (Auto) 8.6 % (0.0-7.3) H 07/28/21 06:48 Eos % (Auto) 4.7 % (0.0-4.3) H 07/28/21 06:48 Baso % (Auto) 0.9 % (0.0-1.8) 07/28/21 06:48 Lymph # (Auto) 1.8 K/mm3 (1.2-5.4) 07/28/21 06:48 Rogers # (Auto) 0.6 K/mm3 (0.0-0.8) 07/28/21 06:48 Eos # (Auto) 0.3 K/mm3 (0.0-0.4) 07/28/21 06:48 Baso # (Auto) 0.1 K/mm3 (0.0-0.1) 07/28/21 06:48 Seg Neutrophils % 59.2 % (40.0-70.0) 07/28/21 06:48 Seg Neutrophils # 4.1 K/mm3 (1.8-7.7) 07/28/21 06:48 PT 14.6 Sec. (12.2-14.9) 07/15/21 05:24 INR 1.03 (0.87-1.13) 07/15/21 05:24 Sodium 133 mmol/L (137-145) L 08/01/21 04:34 Potassium 3.6 mmol/L (3.6-5.0) 08/02/21 04:35 Chloride 97.5 mmol/L (98-107) L 08/01/21 04:34 Carbon Dioxide 22 mmol/L (22-30) 08/01/21 04:34 Anion Gap 17 mmol/L 08/01/21 04:34 BUN 3 mg/dL (7-17) L 08/01/21 04:34 Creatinine 0.5 mg/dL (0.6-1.2) L 08/01/21 04:34 Estimated GFR > 60 ml/min 08/01/21 04:34 BUN/Creatinine Ratio 6 % 08/01/21 04:34 Glucose 116 mg/dL (65-100) H 08/01/21 04:34 POC Glucose 101 mg/dL (70-105) 07/23/21 12:00 Calcium 8.1 mg/dL (8.4-10.2) L 08/01/21 04:34 Phosphorus 4.30 mg/dL (2.5-4.5) 08/01/21 04:34 Magnesium 2.00 mg/dL (1.7-2.3) 08/02/21 04:35 Total Bilirubin 0.30 mg/dL (0.1-1.2) 08/01/21 04:34 AST 14 units/L (5-40) 08/01/21 04:34 ALT 9 units/L (7-56) 08/01/21 04:34 Alkaline Phosphatase 257 units/L (35-129) H 08/01/21 04:34 Total Protein 6.1 g/dL (6.3-8.2) L 08/01/21 04:34 Albumin 2.1 g/dL (3.9-5) L 08/01/21 04:34 Albumin/Globulin Ratio 0.5 % 08/01/21 04:34 Urine Color Yellow (Yellow) 07/27/21 16:55 Urine Turbidity Cloudy (Clear) 07/27/21 16:55 Urine pH 5.0 (5.0-7.0) 07/27/21 16:55 Ur Specific [place] 1.011 (1.003-1.030) 07/27/21 16:55 Urine Protein <15 mg/dl mg/dL (Negative) 07/27/21 16:55 Urine Glucose (UA) Neg mg/dL (Negative) 07/27/21 16:55 Urine Ketones Neg mg/dL (Negative) 07/27/21 16:55 Urine Blood Sm (Negative) 07/27/21 16:55 Urine Nitrite Pos (Negative) 07/27/21 16:55 Urine Bilirubin Neg (Negative) 07/27/21 16:55 Urine Urobilinogen < 2.0 mg/dL (<2.0) 07/27/21 16:55 Ur Leukocyte Esterase Lg (Negative) 07/27/21 16:55 Urine WBC (Auto) > 182.0 /HPF (0.0-6.0) H 07/27/21 16:55 Urine RBC (Auto) 14.0 /HPF (0.0-6.0) 07/27/21 16:55 U Epithel Cells (Auto) 6.0 /HPF (0-13.0) 07/27/21 16:55 Urine Bacteria (Auto) 1+ /HPF (Negative) 07/27/21 16:55 Urine Mucus Few /HPF 07/27/21 16:55 Urine Yeast (Budding) 1+ /HPF 07/27/21 16:55 Nasal Screen MRSA (PCR) Negative (Negative) 07/16/21 04:38 Shelton/IV: Voiding Method Bedside Commode Active Medications - Current Medications Current Medications: Generic Name Dose Route Start Last Admin Trade Name Freq PRN Reason Stop Dose Admin Acetaminophen 650 mg 07/15/21 05:11 07/30/21 17:11 Acetaminophen 325 Mg Tab PO 650 mg Q4H PRN Administration Pain MILD(1-3)/Fever >100.5/PAYNE Albuterol 2.5 mg 07/15/21 05:11 Albuterol 2.5 Mg/3 Ml Nebu IH Q4HRT PRN Shortness Of Breath Famotidine 20 mg 07/29/21 10:00 08/05/21 12:47 Famotidine 20 Mg Tab PO 20 mg BID SOILA Administration Heparin Sodium (Porcine) 5,000 unit 07/15/21 10:00 08/05/21 12:47 Heparin 5,000 Unit/1 Ml Vial SUB-Q 5,000 unit Q12HR SOILA Administration Morphine Sulfate 2 mg 07/15/21 05:11 08/05/21 12:47 Morphine 2 Mg/1 Ml Inj IV 2 mg Q4H PRN Administration Pain , Severe (7-10) Ondansetron HCl 4 mg 07/15/21 05:11 08/05/21 12:47 Ondansetron 4 Mg/2 Ml Inj IV 4 mg Q8H PRN Administration Nausea And Vomiting Oxycodone/Acetaminophen 2 tab 08/05/21 08:00 Oxycodone /Acetaminophen 5-325mg Tab PO Q6H PRN Pain, Moderate (4-6) Sodium Chloride 10 ml 07/15/21 10:00 08/05/21 12:48 Sodium Chloride 0.9% 10 Ml Flush Syringe IV 10 ml BID SOILA Administration Sodium Chloride 10 ml 07/15/21 05:11 08/05/21 06:58 Sodium Chloride 0.9% 10 Ml Flush Syringe IV 10 ml PRN PRN Administration LINE FLUSH Sodium Hypochlorite 1 applic 07/20/21 10:00 08/05/21 12:46 Sodium Hypochlorite, Dakin's Full Strength (0.5%) 473 Ml Topical Soln TP 1 applicatio BID SOILA Administration Nutrition/Malnutrition Assess - Dietary Evaluation Nutrition/Malnutrition Findings: Nutrition Notes Start: 07/15/21 12:08 Freq: Status: Active Protocol: Document 08/01/21 17:34 JORGE (Rec: 08/01/21 17:47 JORGE [id number]) Nutrition Notes Initial or Follow up Brief Note Current Diet Regular Diet (since L 07/26). Labs/Tests 08/01: Na 133, Cl 97.5, BUN 3, Crea 0.5, Glu 116, Ca 6.1, Mg 1.6, AlkPhos 257, Tpro 6.1, Alb 2.1. Pertinent Medications 08/01: D5/0.45ns 1,000 ml @ 100 ml/hr, others nutritionally unremarkable. Height 5 ft 2 in Weight 85.4 kg [place] Body Weight (kg) 50.00 BMI 34.4 Weight change and time frame 5.318 Kg body weight loss since 07/15 reported. Weight Status Obese Subjective/Other Information RD consult for routine F/U on Dietary advancement. PT appears to tolerate well the regular diet. Percent of energy/protein needs met: Prescribed Regular Diet provides for energy/protein needs (2,289 Kcal/89 g) during LOS. Current % PO Fair (50-74%) Nutrition Intervention Change Diet Order: Continue Regular Diet. Add Supplement/Snack (indicate name/kcal 8 fl oz Ensure Clear; TID /protein ) Provides kCal: 720 Provides Protein (gm) 24 Follow-Up By: 08/13/21 Additional Comments Continue monitoring food tolerance, %PO intake of meals , Hydration, and BM.
[2021-08-06 03:56] VITALS: BP 110/62
[2021-08-06] MEDS: MORPHINE 2 MG/1 ML INJ IV PRN ×2 (04:42→09:35)
[2021-08-06] MEDS: SODIUM HYPOCHLORITE, DAKIN'S FULL STRENGTH (0.5%) 473 ML TOPICAL SOLN TP SCH ×2 (05:00→10:03)
--- NOTE | 2021-08-06 11:02 | Discharge Summary ---
Providers - Providers Date of Admission: 07/15/21 05:11 Attending physician: JEAN CARLOS COULTER MD 07/15/21 05:00 Consult to Physician [CONS] Stat Comment: Dr. Murry spoke with Dr. Miranda @ [phone] Consulting Provider: ANUP MIRANDA Physician Instructions: Reason For Exam: intraabdominal abscess 07/15/21 05:14 Consult to Dietitian/Nutrition [CONS] Routine Physician Instructions: Reason For Exam: Reason for Consult: Malnutrition 07/15/21 08:22 Consult to Wound/ET Nurse [CONS] Routine Reason For Exam: wound eval 07/15/21 08:23 Consult to Physician [CONS] Routine Comment: Consulting Provider: TREY BRYAN Physician Instructions: Reason For Exam: intraabdominal abscess post surgery 07/21/21 12:41 Consult to Mental Health [CONS] Routine Reason For Exam: please eval to assess pt. mental status 08/04/21 10:25 Physical Therapy Evaluation and Treat [CONS] Stat Comment: Reason For Exam: Eval and Treat Primary care physician: [employer] Hospitalization Condition: Stable Disposition: 06 HOME HEALTH CARE SERVICE Core Measure Documentation - Palliative Care Palliative Care/ Comfort Measures: Not Applicable Exam - Constitutional Vitals: Temp Pulse Resp BP Pulse Ox 99.5 F 106 H 16 110/62 96 08/06/21 03:19 08/06/21 03:19 08/06/21 03:19 08/06/21 03:19 08/06/21 07:24 Plan Care Plan Goals: Establish primary care with the resources provided to you. Continue wound care as shown by the nurse. Please follow-up with the general surgeon 2 weeks after discharge. Follow up with: MELODIE BRANTLEY MD [Staff Physician] - 7 Days PRIMARY MD JAQUELIN [Primary Care Provider] - 3-5 Days ANUP MIRANDA MD [Staff Physician] - 14 Days Prescriptions: Sodium Hypochlorite [Dakin's Full Strength] 1 applic TP Q12H 30 Days #1 bottle oxyCODONE /ACETAMINOPHEN [Percocet 5/325 mg] 2 tab PO Q6H PRN 3 Days #10 tablet PRN Reason: Pain, Moderate (4-6)
== END 2021-08-06 16:10 | disposition home or self-care (01) | DRG 371 ==
LOC: ED 04:34 → 4A 05:11
PROVIDERS: ADMIT Hospitalist; ATTEND Student in an Organized Health Care Education/Training Program
PROC: 0W9G30Z Drainage of Peritoneal Cavity with Drainage Device, Percutaneous Approach (ICD-10-PCS; principal; 2021-07-17)
DX: K65.1 Peritoneal abscess (principal); E43 Unspecified severe protein-calorie malnutrition; N39.0 Urinary tract infection, site not specified; E87.2 Acidosis; Z98.890 Other specified postprocedural states; Z68.39 Body mass index [BMI] 39.0-39.9, adult; K65.9 Peritonitis, unspecified; Z20.822 Contact with and (suspected) exposure to COVID-19; Z90.49 Acquired absence of other specified parts of digestive tract; D75.838 Other thrombocytosis; E87.6 Hypokalemia; D63.8 Anemia in other chronic diseases classified elsewhere; E83.42 Hypomagnesemia; Z59.01 Sheltered homelessness
CPT/HCPCS: 10160; 36415; 71045; 74177; 77012; 80048; 80053; 81001; 82962; 83735; 84100; 84132; 85014; 85018; 85025; 85027; 85610; 87040; 87076; 87086; 87116; 87186; 87641; 90686; 94640; 94760; G0378; J3490; J7070; J7502; Q0162; C1769; J0696; J1170; J1644; J2250; J2270; J2405; J2543; J3010; J3475; J3480; J7030; J7040; Q9967; U0003

== ENCOUNTER 2021-12-01 20:21 | Inpatient (IN) | payer SELFPAY ==
[2021-12-01] MEDS ORDERED: SODIUM CHLORIDE 0.9% 1000 ML 1,000 ML IV ONE (21:36)
--- NOTE | 2021-12-01 21:42 | Emergency Department Report ---
ED General Adult HPI - General Chief complaint: Altered Mental Status Stated complaint: GENERAL WEAKNESS Time Seen by Provider: 12/01/21 21:16 Source: patient, EMS ( EMS documentation not available at time of chart dictation ), RN notes reviewed, old records reviewed Mode of arrival: Stretcher Limitations: Altered Mental Status, Physical Limitation - History of Present Illness Initial comments: This is a 46-year-old female. Past medical history is complex. Patient admitted to this hospital in 2020 for perforated viscus. She has a history of polysubstance abuse, and had a right hemicolectomy, with ileostomy, and has left lower quadrant colostomy. She also had admission to the hospital for postsurgical abscess, started on antibiotics, and received IR guideddrainage. Recent cultures from last year have grown Klebsiella pneumonia, and Enterococcus faecium. She also had surgical cultures, which grew E. coli. Sensitivities are reviewed by myself. Today, she presents to the ER via EMS with a complaint of weakness, abdominal pain, fever, chills, confusion, and possible urinary tract infection. She reports that family members called 911 because she felt weak ill and confused. The patient is not accompanied by friends or family at this time for collateral information. -: unknown Radiation: abdomen Improves with: rest Worsens with: movement - Related Data Previous Rx's Medication Instructions Recorded Last Taken Type Sodium Hypochlorite [Dakin's Full 1 applic TP Q12H 30 Days #1 bottle 07/18/21 Unknown Rx Strength] oxyCODONE /ACETAMINOPHEN [Percocet 2 tab PO Q6H PRN 3 Days #10 tablet 07/18/21 Unknown Rx 5/325 mg] Allergies Allergy/AdvReac Type Severity Reaction Status Date / Time No Known Allergies Allergy Verified 07/15/21 09:56 ED Review of Systems ROS: Stated complaint: GENERAL WEAKNESS Other details as noted in HPI Constitutional: fever, malaise, weakness ENT: denies: epistaxis Respiratory: denies: cough Cardiovascular: denies: chest pain Gastrointestinal: abdominal pain Genitourinary: dysuria Neurological: weakness, confusion ED Past Medical Hx - Past Medical History Previous Medical History?: Yes Hx Hypertension: No Hx Heart Attack/AMI: No Hx Liver Disease: No Hx Renal Disease: Yes (ALEX) Hx Psychiatric Treatment: Yes Hx HIV: No Additional medical history: IrreguLar periods, past has colostomy bag placed at [facility] on 06/29/21 per pt - Surgical History Past Surgical History?: Yes Hx Appendectomy: Yes Additional Surgical History: tubes tied. 2018, colostomy bag placed [facility] 06/29/21 - Social History Smoking Status: Unknown if ever smoked - Medications Home Medications: Home Medications Medication Instructions Recorded Confirmed Last Taken Type Sodium Hypochlorite [Dakin's Full 1 applic TP Q12H 30 Days #1 bottle 07/18/21 Unknown Rx Strength] oxyCODONE /ACETAMINOPHEN [Percocet 2 tab PO Q6H PRN 3 Days #10 tablet 07/18/21 Unknown Rx 5/325 mg] ED Physical Exam - General Limitations: Altered Mental Status General appearance: other (Patient is listless but arousable) - Head Head exam: Present: atraumatic, normocephalic - Eye Eye exam: Present: normal appearance, EOMI. Absent: nystagmus - ENT ENT exam: Present: normal exam, mucous membranes dry, normal external ear exam - Neck Neck exam: Present: normal inspection, full ROM. Absent: tenderness, meningismus - Respiratory Respiratory exam: Present: normal lung sounds bilaterally. Absent: respiratory distress, wheezes, rales, rhonchi, stridor, decreased breath sounds - Cardiovascular Cardiovascular Exam: Present: regular rate, normal rhythm, normal heart sounds. Absent: bradycardia, tachycardia, irregular rhythm, systolic murmur, diastolic murmur, rubs, gallop - GI/Abdominal GI/Abdominal exam: Present: soft, tenderness, other (There is a colostomy noted in the left lower quadrant, without redness, pus or streaking). Absent: distended, guarding, rebound, rigid, pulsatile mass - Extremities Exam Extremities exam: Present: normal inspection, full ROM, other (2+ pulses noted in the bilateral upper and lower extremities. There is no palpable cord. negative Homans sign. Muscular compartments are soft. The pelvis is stable.). Absent: pedal edema, calf tenderness - Back Exam Back exam: Present: normal inspection. Absent: tenderness, CVA tenderness (R), CVA tenderness (L), paraspinal tenderness, vertebral tenderness - Neurological Exam Neurological exam: Present: altered (The patient is awake. The patient moves 4 extremities. The patient is confused. The patient thinks that it is 2020. She is alert to name and location) - Psychiatric Psychiatric exam: Present: anxious - Skin Skin exam: Present: warm, dry, intact, normal color. Absent: rash ED Course Vital Signs 12/01/21 12/01/21 20:21 22:25 Temperature 100.9 F H Pulse Rate 86 Respiratory 20 Rate Blood Pressure 146/85 120/64 O2 Sat by Pulse 100 Oximetry - Reevaluation(s) Reevaluation #1: 12/01/21 23:12 Differential diagnosis, including but limited to: Pneumonia, UTI, bacteremia, viremia, intra-abdominal infection, encephalopathy Assessment and plan: 46-year-old female, who is febrile, with nonspecific altered mental status, awake and alert to name, without meningeal signs, has evidence of UTI, and also has abdominal tenderness. Prior culture results are reviewed and appreciated. Start with ceftriaxone 2 g. Start IV fluids, Tylenol, obtain CT scan of the brain, and CT scan of the abdomen pelvis. Reassess after initial data points. Anticipate admission to the medical service for antibiotics, fluids and supportive care. Motor examination is nonfocal at this time 12/02/21 00:32 CT scan of the brain is negative for acute findings. CT scan of the abdomen pelvis suggests uncomplicated colitis. Given UTI, colitis, acute febrile encephalopathy, complicated past medical history, acute febrile illness, patient meets criteria for admission and hospitalization. Metronidazole is ordered. Hospital physician, Dr. Harris to admit to [facility] Medical decision makin-year-old female with acute encephalopathy, UTI, colitis, requires admission to the medical service for fluids, antibiotics, supportive care, and medical optimization. ED Medical Decision Making - Lab Data Result diagrams: 12/01/21 21:41 12/01/21 21:41 Vital Signs 12/01/21 12/01/21 20:21 22:25 Temperature 100.9 F H Pulse Rate 86 Respiratory 20 Rate Blood Pressure 146/85 120/64 O2 Sat by Pulse 100 Oximetry Lab Results 12/01/21 12/01/21 12/01/21 Range/Units 21:41 21:41 21:41 WBC 10.2 (4.5-11.0) K/mm3 RBC 4.51 (3.65-5.03) M/mm3 Hgb 12.8 (10.1-14.3) gm/dl Hct 38.6 (30.3-42.9) % MCV 86 (79-97) fl MCH 28 (28-32) pg MCHC 33 (30-34) % RDW 20.2 H (13.2-15.2) % Plt Count 277 (140-440) K/mm3 PT 13.1 (12.2-14.9) Sec. INR 0.90 (0.87-1.13) APTT 31.2 (24.2-36.6) Sec. Sodium 136 L (137-145) mmol/L Potassium 3.5 L (3.6-5.0) mmol/L Chloride 101.7 (98-107) mmol/L Carbon Dioxide 24 (22-30) mmol/L Anion Gap 14 mmol/L BUN 7 (7-17) mg/dL Creatinine 0.6 (0.6-1.2) mg/dL Estimated GFR > 60 ml/min BUN/Creatinine Ratio 12 % Glucose 85 (65-100) mg/dL Lactic Acid (0.7-2.0) mmol/L Calcium 8.9 (8.4-10.2) mg/dL Total Bilirubin 0.30 (0.1-1.2) mg/dL Direct Bilirubin < 0.2 (0-0.2) mg/dL Indirect Bilirubin 0.1 mg/dL AST 19 (5-40) units/L ALT 24 (7-56) units/L Alkaline Phosphatase 140 H (35-129) units/L Total Creatine Kinase 24 L (30-135) units/L Troponin T < 0.010 (0.00-0.029) ng/mL Total Protein 6.7 (6.3-8.2) g/dL Albumin 3.4 L (3.9-5) g/dL Albumin/Globulin Ratio 1.0 % TSH (0.270-4.200) mlU/mL HCG, Quant (0-4) mIU/mL Urine Color (Yellow) Urine Turbidity (Clear) Urine pH (5.0-7.0) Ur Specific [place] (1.003-1.030) Urine Protein (Negative) mg/dL Urine Glucose (UA) (Negative) mg/dL Urine Ketones (Negative) mg/dL Urine Blood (Negative) Urine Nitrite (Negative) Urine Bilirubin (Negative) Urine Urobilinogen (<2.0) mg/dL Ur Leukocyte Esterase (Negative) Urine WBC (Auto) (0.0-6.0) /HPF Urine RBC (Auto) (0.0-6.0) /HPF U Epithel Cells (Auto) (0-13.0) /HPF Urine Bacteria (Auto) (Negative) /HPF Hyaline Casts /LPF Urine Mucus /HPF Salicylates (2.8-20.0) mg/dL Acetaminophen (10.0-30.0) ug/mL Plasma/Serum Alcohol (0-0.07) % 12/01/21 12/01/21 12/01/21 Range/Units 21:41 21:41 21:41 WBC (4.5-11.0) K/mm3 RBC (3.65-5.03) M/mm3 Hgb (10.1-14.3) gm/dl Hct (30.3-42.9) % MCV (79-97) fl MCH (28-32) pg MCHC (30-34) % RDW (13.2-15.2) % Plt Count (140-440) K/mm3 PT (12.2-14.9) Sec. INR (0.87-1.13) APTT (24.2-36.6) Sec. Sodium (137-145) mmol/L Potassium (3.6-5.0) mmol/L Chloride (98-107) mmol/L Carbon Dioxide (22-30) mmol/L Anion Gap mmol/L BUN (7-17) mg/dL Creatinine (0.6-1.2) mg/dL Estimated GFR ml/min BUN/Creatinine Ratio % Glucose (65-100) mg/dL Lactic Acid 1.70 (0.7-2.0) mmol/L Calcium (8.4-10.2) mg/dL Total Bilirubin (0.1-1.2) mg/dL Direct Bilirubin (0-0.2) mg/dL Indirect Bilirubin mg/dL AST (5-40) units/L ALT (7-56) units/L Alkaline Phosphatase (35-129) units/L Total Creatine Kinase (30-135) units/L Troponin T (0.00-0.029) ng/mL Total Protein (6.3-8.2) g/dL Albumin (3.9-5) g/dL Albumin/Globulin Ratio % TSH (0.270-4.200) mlU/mL HCG, Quant (0-4) mIU/mL Urine Color (Yellow) Urine Turbidity (Clear) Urine pH (5.0-7.0) Ur Specific [place] (1.003-1.030) Urine Protein (Negative) mg/dL Urine Glucose (UA) (Negative) mg/dL Urine Ketones (Negative) mg/dL Urine Blood (Negative) Urine Nitrite (Negative) Urine Bilirubin (Negative) Urine Urobilinogen (<2.0) mg/dL Ur Leukocyte Esterase (Negative) Urine WBC (Auto) (0.0-6.0) /HPF Urine RBC (Auto) (0.0-6.0) /HPF U Epithel Cells (Auto) (0-13.0) /HPF Urine Bacteria (Auto) (Negative) /HPF Hyaline Casts /LPF Urine Mucus /HPF Salicylates < 0.3 L (2.8-20.0) mg/dL Acetaminophen 5.0 L (10.0-30.0) ug/mL Plasma/Serum Alcohol (0-0.07) % 12/01/21 12/01/21 12/01/21 Range/Units 21:41 21:41 21:41 WBC (4.5-11.0) K/mm3 RBC (3.65-5.03) M/mm3 Hgb (10.1-14.3) gm/dl Hct (30.3-42.9) % MCV (79-97) fl MCH (28-32) pg MCHC (30-34) % RDW (13.2-15.2) % Plt Count (140-440) K/mm3 PT (12.2-14.9) Sec. INR (0.87-1.13) APTT (24.2-36.6) Sec. Sodium (137-145) mmol/L Potassium (3.6-5.0) mmol/L Chloride (98-107) mmol/L Carbon Dioxide (22-30) mmol/L Anion Gap mmol/L BUN (7-17) mg/dL Creatinine (0.6-1.2) mg/dL Estimated GFR ml/min BUN/Creatinine Ratio % Glucose (65-100) mg/dL Lactic Acid (0.7-2.0) mmol/L Calcium (8.4-10.2) mg/dL Total Bilirubin (0.1-1.2) mg/dL Direct Bilirubin (0-0.2) mg/dL Indirect Bilirubin mg/dL AST (5-40) units/L ALT (7-56) units/L Alkaline Phosphatase (35-129) units/L Total Creatine Kinase (30-135) units/L Troponin T (0.00-0.029) ng/mL Total Protein (6.3-8.2) g/dL Albumin (3.9-5) g/dL Albumin/Globulin Ratio % TSH 3.900 (0.270-4.200) mlU/mL HCG, Quant 0.862 (0-4) mIU/mL Urine Color (Yellow) Urine Turbidity (Clear) Urine pH (5.0-7.0) Ur Specific [place] (1.003-1.030) Urine Protein (Negative) mg/dL Urine Glucose (UA) (Negative) mg/dL Urine Ketones (Negative) mg/dL Urine Blood (Negative) Urine Nitrite (Negative) Urine Bilirubin (Negative) Urine Urobilinogen (<2.0) mg/dL Ur Leukocyte Esterase (Negative) Urine WBC (Auto) (0.0-6.0) /HPF Urine RBC (Auto) (0.0-6.0) /HPF U Epithel Cells (Auto) (0-13.0) /HPF Urine Bacteria (Auto) (Negative) /HPF Hyaline Casts /LPF Urine Mucus /HPF Salicylates (2.8-20.0) mg/dL Acetaminophen (10.0-30.0) ug/mL Plasma/Serum Alcohol < 0.01 (0-0.07) % 12/01/21 Range/Units Unknown WBC (4.5-11.0) K/mm3 RBC (3.65-5.03) M/mm3 Hgb (10.1-14.3) gm/dl Hct (30.3-42.9) % MCV (79-97) fl MCH (28-32) pg MCHC (30-34) % RDW (13.2-15.2) % Plt Count (140-440) K/mm3 PT (12.2-14.9) Sec. INR (0.87-1.13) APTT (24.2-36.6) Sec. Sodium (137-145) mmol/L Potassium (3.6-5.0) mmol/L Chloride (98-107) mmol/L Carbon Dioxide (22-30) mmol/L Anion Gap mmol/L BUN (7-17) mg/dL Creatinine (0.6-1.2) mg/dL Estimated GFR ml/min BUN/Creatinine Ratio % Glucose (65-100) mg/dL Lactic Acid (0.7-2.0) mmol/L Calcium (8.4-10.2) mg/dL Total Bilirubin (0.1-1.2) mg/dL Direct Bilirubin (0-0.2) mg/dL Indirect Bilirubin mg/dL AST (5-40) units/L ALT (7-56) units/L Alkaline Phosphatase (35-129) units/L Total Creatine Kinase (30-135) units/L Troponin T (0.00-0.029) ng/mL Total Protein (6.3-8.2) g/dL Albumin (3.9-5) g/dL Albumin/Globulin Ratio % TSH (0.270-4.200) mlU/mL HCG, Quant (0-4) mIU/mL Urine Color Yellow (Yellow) Urine Turbidity Slightly-cloudy (Clear) Urine pH 5.0 (5.0-7.0) Ur Specific [place] 1.016 (1.003-1.030) Urine Protein 30 mg/dl (Negative) mg/dL Urine Glucose (UA) Neg (Negative) mg/dL Urine Ketones Neg (Negative) mg/dL Urine Blood Lg (Negative) Urine Nitrite Pos (Negative) Urine Bilirubin Neg (Negative) Urine Urobilinogen < 2.0 (<2.0) mg/dL Ur Leukocyte Esterase Mod (Negative) Urine WBC (Auto) 30.0 H (0.0-6.0) /HPF Urine RBC (Auto) 10.0 (0.0-6.0) /HPF U Epithel Cells (Auto) 2.0 (0-13.0) /HPF Urine Bacteria (Auto) 1+ (Negative) /HPF Hyaline Casts 1 /LPF Urine Mucus 3+ /HPF Salicylates (2.8-20.0) mg/dL Acetaminophen (10.0-30.0) ug/mL Plasma/Serum Alcohol (0-0.07) % - EKG Data -: EKG Interpreted by [facility] EKG shows normal: sinus rhythm Rate: normal - EKG Data 12/02/21 00:50 The EKG is interpreted at 12: 35 AM Sinus rhythm, 94 bpm. Normal axis, normal intervals, poor R wave progression, and normal P wave axis. This is an abnormal EKG. This is not a STEMI - Radiology Data Radiology results: pending, report reviewed, image reviewed CHEST 1 VIEW 12/01/2021 10:00 PM INDICATION / CLINICAL INFORMATION: Altered Mental Status. COMPARISON: 07/27/2021 FINDINGS: SUPPORT DEVICES: None. HEART / MEDIASTINUM: No significant abnormality. LUNGS / PLEURA: Stable mild linear scarring in the right lower lung. No acute findings. No pneumothorax. ADDITIONAL FINDINGS: No significant additional findings. IMPRESSION: 1. No acute findings. Signer Name: Vicente Izaguirre MD Signed: 12/01/2021 10:06 PM Workstation Name: [employer] CT abdomen pelvis w con INDICATION: Acute abdominal pain, history of intra- abdominal abscess. TECHNIQUE: All CT scans at this location are performed using CT dose reduction for ALARA by means of automated exposure control. COMPARISON: Prior CT on 07/15/2021 FINDINGS: There is mild linear scarring in both lung bases without acute abnormality. The liver, gallbladder, pancreas, kidneys, adrenal glands, and spleen demonstrate no acute findings. Left lower quadrant ostomy is again seen. There is a small amount of free fluid in the abdomen but no discrete focal well-defined fluid collection. There is diffuse wall thickening and edema in the colon suggesting colitis. There is no free air. The abdominal aorta is nonaneurysmal. There are no acute osseous abnormalities. IMPRESSION: 1. Diffuse wall thickening and edema in the colon suggesting colitis. 2. Small amount free fluid in the abdomen without focal well-defined fluid collection. Signer Name: Vicente Izaguirre MD Signed: 12/01/2021 11:25 PM Workstation Name: [employer] CT head/brain wo con INDICATION: Altered Mental Status. TECHNIQUE: All CT s cans at this location are performed using CT dose reduction for ALARA by means of automated exposure control. COMPARISON: Head CT on 01/15/2020 FINDINGS: There is no acute hemorrhage, brain edema, or hydrocephalus. There is stable mild chronic small vessel ischemic change of the cerebral white matter. There is normal brain volume for age. The included paranasal sinuses and mastoid air cells are clear. The orbits appear unremarkable. IMPRESSION: 1. No acute findings. Signer Name: Vicente Izaguirre MD Signed: 12/01/2021 11:21 PM Workstation Name: [id number] Critical care attestation.: If time is entered above; I have spent that time in minutes in the direct care of this critically ill patient, excluding procedure time. ED Disposition Clinical Impression: Acute abdominal pain, Acute encephalopathy, Urinary tract infection Disposition: ADMITTED INPATIENT Is pt being admited?: Yes Does the pt Need Aspirin: No Condition: Good Referrals: PRIMARY CARE, [Primary Care Provider] - 3-5 Days
[2021-12-01 22:14] LABS: Bacteria,Urine 1+ /HPF (Negative); Bilirubin,Urine NEG (Negative); Blood,Urine LG (Negative); Color,Urine Yellow (Yellow); Hyaline Casts,Urine 1 /LPF; Mucus,Urine 3+ /HPF; Urobilinogen,Urine < 2.0 mg/dL (<2.0)
[2021-12-01 22:23] LABS: Hematocrit 38.6 % (30.3-42.9); Hemoglobin 12.8 gm/dl (10.1-14.3); Mean Corpuscular HGB Conc 33 % (30-34); Mean Corpuscular Volume 86 fl (79-97); Platelet Count 277 K/mm3 (140-440); Red Blood Count 4.51 M/mm3 (3.65-5.03)
[2021-12-01 22:36] LABS: Alanine Aminotransferase 24 units/L (7-56); Albumin 3.4 g/dL (3.9-5); Blood Urea Nitrogen 7 mg/dL (7-17); Calcium 8.9 mg/dL (8.4-10.2); Hemolysis Index 1
[2021-12-01 22:38] LABS: BUN/Creatinine Ratio 12; Bilirubin,Direct < 0.2 mg/dL (0-0.2)
[2021-12-01 22:58] LABS: INR 0.9 (0.87-1.13); Red Cell Distribution Width 20.2 % (13.2-15.2)
[2021-12-01 22:59] LABS: Partial Thromboplastin Time 31.2 Sec. (24.2-36.6)
[2021-12-01] MEDS ORDERED: cefTRIAXone/NS 2 GM/100 ML 2 GM/100 ML BAG IV ONE (23:08)
[2021-12-01] MEDS ORDERED: ACETAMINOPHEN 500 MG TAB PO ONE (23:08)
--- NOTE | 2021-12-01 23:10 | XRay Report ---
CHEST 1 VIEW 12/01/2021 10:00 PM INDICATION / CLINICAL INFORMATION: Altered Mental Status. COMPARISON: 07/27/2021 FINDINGS: SUPPORT DEVICES: None. HEART / MEDIASTINUM: No significant abnormality. LUNGS / PLEURA: Stable mild linear scarring in the right lower lung. No acute findings. No pneumothor ax. ADDITIONAL FINDINGS: No significant additional findings. IMPRESSION: 1. No acute findings. Signer Name: Vicente Izaguirre MD Signed: 12/01/2021 11:06 PM Workstation Name: [id number]
[2021-12-01 23:49] LABS: Band Neutrophils # (Manual) 0.3 K/mm3; Basophils % (Manual) 0 % (0.0-1.8); Eosinophils % (Manual) 0 % (0.0-4.3); Total Cells Counted 100
[2021-12-01 23:50] LABS: Anisocytosis 1+
[2021-12-01 23:51] LABS: Hypochromasia 1+; Platelet Estimate Consistent w Auto
--- NOTE | 2021-12-02 00:25 | Cat Scan Report ---
CT head/brain wo con INDICATION: Altered Mental Status. TECHNIQUE: All CT scans at this location are performed using CT dose reduction for ALARA by means of automated e xposure control. COMPARISON: Head CT on 01/15/2020 FINDINGS: There is no acute hemorrhage, brain edema, or hydrocephalus. There is stable mild chronic small vesse l ischemic change of the cerebral white matter. There is normal brain volume for age. The included pa ranasal sinuses and mastoid air cells are clear. The orbits appear unremarkable. IMPRESSION: 1. No acute findings. Signer Name: Vicente Izaguirre MD Signed: 12/02/2021 12:21 AM Workstation Name: [id number]
--- NOTE | 2021-12-02 00:29 | Cat Scan Report ---
CT abdomen pelvis w con INDICATION: Acute abdominal pain, history of intra-abdominal abscess. TECHNIQUE: All CT scans at this location are performed using CT dose reduction for ALARA by means of automated e xposure control. COMPARISON: Prior CT on 07/15/2021 FINDINGS: There is mild linear scarring in both lung bases without acute abnormality. The liver, gallbladder, pancreas, kidneys, adrenal glands, and spleen demonstrate no acute findings. Left lower quadrant ostomy is again seen. There is a small amount of free fluid in the abdomen but no discrete focal well-defined fluid collection. There is diffuse wall thickening and edema in the colo n suggesting colitis. There is no free air. The abdominal aorta is nonaneurysmal. There are no acute osseous abnormalities. IMPRESSION: 1. Diffuse wall thickening and edema in the colon suggesting colitis. 2. Small amount free fluid in the abdomen without focal well-defined fluid collection. Signer Name: Vicente Izaguirre MD Signed: 12/02/2021 12:25 AM Workstation Name: [id number]
[2021-12-02] MEDS ORDERED: metroNIDAZOLE/NS 500 MG/100 ML 500 MG/100 ML BAG IV ONE (00:31)
[2021-12-02] MEDS ORDERED: HYDROmorphone 1 MG/1 ML INJ IV PRN (01:16)
[2021-12-02] MEDS ORDERED: ACETAMINOPHEN 325 MG TAB PO PRN (01:16)
[2021-12-02] MEDS ORDERED: ONDANSETRON 4 MG/2 ML INJ IV PRN (01:16)
[2021-12-02] MEDS ORDERED: ALBUTEROL 2.5 MG/3 ML NEBU IH PRN (01:16)
--- NOTE | 2021-12-02 01:23 | History and Physical Report ---
History of Present Illness Date of examination: 12/02/21 Date of admission: 12/02/21 Chief complaint: Altered mental status History of present illness: 46 years old female with history of polysubstance abuse, right hemicolectomy with ileostomy and left lower quadrant colostomy was brought to the emergency room because of weakness, abdominal pain, fever, chills, confusion, and possible urinary tract infection. She reports that family members called 911 because she felt weak ill and confused. The patient is not accompanied by friends or family at this time for collateral information. In the emergency room initial CT scan shows no acute finding. CT scan of the abdomen showed diffuse wall thickening and edema in the colon suggesting colitis. Patient also found to have UTI so going to admit the patient we will put the patient on IV antibiotic IV fluid and pain medication. Past History Past Medical History: renal failure, other (IrreguLar periods, past has colostomy bag placed at [facility] on 06/29/21 per pt) Past Surgical History: Other (tubes tied. 2018, colostomy bag placed [facility] 06/29/21) Social history: other ( Unknown if ever smoked) Family history: no significant family history Medications and Allergies Allergies Allergy/AdvReac Type Severity Reaction Status Date / Time No Known Allergies Allergy Verified 07/15/21 09:56 Home Medications Medication Instructions Recorded Confirmed Last Taken Type Sodium Hypochlorite [Dakin's Full 1 applic TP Q12H 30 Days #1 bottle 07/18/21 Unknown Rx Strength] oxyCODONE /ACETAMINOPHEN [Percocet 2 tab PO Q6H PRN 3 Days #10 tablet 07/18/21 Unknown Rx 5/325 mg] Review of Systems All systems: negative Constitutional: fever, weakness, malaise, lethargy, other (Confusion) Gastrointestinal: abdominal pain Genitourinary Female: dysuria Exam - Constitutional Vitals: Temp Pulse Resp BP Pulse Ox 100.9 F H 86 20 120/64 100 12/01/21 20:21 12/01/21 20:21 12/01/21 20:21 12/01/21 22:25 12/01/21 20:21 General appearance: Present: no acute distress, well-nourished - EENT Eyes: Present: PERRL ENT: hearing intact, clear oral mucosa - Neck Neck: Present: supple, normal ROM - Respiratory Respiratory effort: normal Respiratory: bilateral: diminished - Cardiovascular Heart Sounds: Present: S1 & S2. Absent: rub, click - Extremities Extremities: pulses symmetrical, No edema Peripheral Pulses: within normal limits - Abdominal General gastrointestinal: Present: soft, non-tender, non-distended, normal bowel sounds Female genitourinary: Present: normal - Integumentary Integumentary: Present: clear, warm, dry - Musculoskeletal Musculoskeletal: gait normal, strength equal bilaterally - Psychiatric Psychiatric: appropriate mood/affect, intact judgment & insight - Neurologic Neurologic: CNII-XII intact, moves all extremities HEART Score - HEART Score Troponin: Troponin T < 0.010 ng/mL (0.00-0.029) 12/01/21 21:41 Results - Labs CBC & Chem 7: 12/01/21 21:41 12/01/21 21:41 Labs: Laboratory Last Values WBC 10.2 K/mm3 (4.5-11.0) 12/01/21 21:41 RBC 4.51 M/mm3 (3.65-5.03) 12/01/21 21:41 Hgb 12.8 gm/dl (10.1-14.3) 12/01/21 21:41 Hct 38.6 % (30.3-42.9) 12/01/21 21:41 MCV 86 fl (79-97) 12/01/21 21:41 MCH 28 pg (28-32) 12/01/21 21:41 MCHC 33 % (30-34) 12/01/21 21:41 RDW 20.2 % (13.2-15.2) H 12/01/21 21:41 Plt Count 277 K/mm3 (140-440) 12/01/21 21:41 Add Manual Diff Complete 12/01/21 21:41 Total Counted 100 12/01/21 21:41 Seg Neuts % (Manual) 81.0 % (40.0-70.0) H 12/01/21 21:41 Band Neutrophils % 3.0 % 12/01/21 21:41 Lymphocytes % (Manual) 15.0 % (13.4-35.0) 12/01/21 21:41 Reactive Lymphs % (Man) 0 % 12/01/21 21:41 Monocytes % (Manual) 1.0 % (0.0-7.3) 12/01/21 21:41 Eosinophils % (Manual) 0 % (0.0-4.3) 12/01/21 21:41 Basophils % (Manual) 0 % (0.0-1.8) 12/01/21 21:41 Metamyelocytes % 0 % 12/01/21 21:41 Myelocytes % 0 % 12/01/21 21:41 Promyelocytes % 0 % 12/01/21 21:41 Blast Cells % 0 % 12/01/21 21:41 Nucleated RBC % Not Reportable 12/01/21 21:41 Seg Neutrophils # Man 8.3 K/mm3 (1.8-7.7) H 12/01/21 21:41 Band Neutrophils # 0.3 K/mm3 12/01/21 21:41 Lymphocytes # (Manual) 1.5 K/mm3 (1.2-5.4) 12/01/21 21:41 Abs React Lymphs (Man) 0.0 K/mm3 12/01/21 21:41 Monocytes # (Manual) 0.1 K/mm3 (0.0-0.8) 12/01/21 21:41 Eosinophils # (Manual) 0.0 K/mm3 (0.0-0.4) 12/01/21 21:41 Basophils # (Manual) 0.0 K/mm3 (0.0-0.1) 12/01/21 21:41 Metamyelocytes # 0.0 K/mm3 12/01/21 21:41 Myelocytes # 0.0 K/mm3 12/01/21 21:41 Promyelocytes # 0.0 K/mm3 12/01/21 21:41 Blast Cells # 0.0 K/mm3 12/01/21 21:41 WBC Morphology Not Reportable 12/01/21 21:41 Hypersegmented Neuts Not Reportable 12/01/21 21:41 Hyposegmented Neuts Not Reportable 12/01/21 21:41 Hypogranular Neuts Not Reportable 12/01/21 21:41 Smudge Cells Not Reportable 12/01/21 21:41 Toxic Granulation Not Reportable 12/01/21 21:41 Toxic Vacuolation Not Reportable 12/01/21 21:41 Dohle Bodies Not Reportable 12/01/21 21:41 Pelger-Huet Anomaly Not Reportable 12/01/21 21:41 Ashlyn Rods Not Reportable 12/01/21 21:41 Platelet Estimate Consistent w auto 12/01/21 21:41 Clumped Platelets Not Reportable 12/01/21 21:41 Plt Clumps, EDTA Not Reportable 12/01/21 21:41 Large Platelets Not Reportable 12/01/21 21:41 Giant Platelets Not Reportable 12/01/21 21:41 Platelet Satelliting Not Reportable 12/01/21 21:41 Plt Morphology Comment Not Reportable 12/01/21 21:41 RBC Morphology Not Reportable 12/01/21 21:41 Dimorphic RBCs Not Reportable 12/01/21 21:41 Polychromasia Not Reportable 12/01/21 21:41 Hypochromasia 1+ 12/01/21 21:41 Poikilocytosis Not Reportable 12/01/21 21:41 Anisocytosis 1+ 12/01/21 21:41 Microcytosis 1+ 12/01/21 21:41 Macrocytosis Not Reportable 12/01/21 21:41 Spherocytes Not Reportable 12/01/21 21:41 Pappenheimer Bodies Not Reportable 12/01/21 21:41 Sickle Cells Not Reportable 12/01/21 21:41 Target Cells Not Reportable 12/01/21 21:41 Tear Drop Cells Not Reportable 12/01/21 21:41 Ovalocytes Not Reportable 12/01/21 21:41 Helmet Cells Not Reportable 12/01/21 21:41 [place] Bodies Not Reportable 12/01/21 21:41 [place] Rings Not Reportable 12/01/21 21:41 [place] Cells Not Reportable 12/01/21 21:41 Bite Cells Not Reportable 12/01/21 21:41 Crenated Cell Not Reportable 12/01/21 21:41 Elliptocytes Not Reportable 12/01/21 21:41 Acanthocytes (Spur) Not Reportable 12/01/21 21:41 Rouleaux Not Reportable 12/01/21 21:41 Hemoglobin C Crystals Not Reportable 12/01/21 21:41 Schistocytes Not Reportable 12/01/21 21:41 Malaria parasites Not Reportable 12/01/21 21:41 Geovanni Bodies Not Reportable 12/01/21 21:41 Hem Pathologist Commnt No 12/01/21 21:41 PT 13.1 Sec. (12.2-14.9) 12/01/21 21:41 INR 0.90 (0.87-1.13) 12/01/21 21:41 APTT 31.2 Sec. (24.2-36.6) 12/01/21 21:41 Sodium 136 mmol/L (137-145) L 12/01/21 21:41 Potassium 3.5 mmol/L (3.6-5.0) L 12/01/21 21:41 Chloride 101.7 mmol/L (98-107) 12/01/21 21:41 Carbon Dioxide 24 mmol/L (22-30) 12/01/21 21:41 Anion Gap 14 mmol/L 12/01/21 21:41 BUN 7 mg/dL (7-17) 12/01/21 21:41 Creatinine 0.6 mg/dL (0.6-1.2) 12/01/21 21:41 Estimated GFR > 60 ml/min 12/01/21 21:41 BUN/Creatinine Ratio 12 % 12/01/21 21:41 Glucose 85 mg/dL (65-100) 12/01/21 21:41 Lactic Acid 1.70 mmol/L (0.7-2.0) 12/01/21 21:41 Calcium 8.9 mg/dL (8.4-10.2) 12/01/21 21:41 Total Bilirubin 0.30 mg/dL (0.1-1.2) 12/01/21 21:41 Direct Bilirubin < 0.2 mg/dL (0-0.2) 12/01/21 21:41 Indirect Bilirubin 0.1 mg/dL 12/01/21 21:41 AST 19 units/L (5-40) 12/01/21 21:41 ALT 24 units/L (7-56) 12/01/21 21:41 Alkaline Phosphatase 140 units/L (35-129) H 12/01/21 21:41 Total Creatine Kinase 24 units/L (30-135) L 12/01/21 21:41 Troponin T < 0.010 ng/mL (0.00-0.029) 12/01/21 21:41 Total Protein 6.7 g/dL (6.3-8.2) 12/01/21 21:41 Albumin 3.4 g/dL (3.9-5) L 12/01/21 21:41 Albumin/Globulin Ratio 1.0 % 12/01/21 21:41 TSH 3.900 mlU/mL (0.270-4.200) 12/01/21 21:41 HCG, Quant 0.862 mIU/mL (0-4) 12/01/21 21:41 Urine Color Yellow (Yellow) 12/01/21 Unknown Urine Turbidity Slightly-cloudy (Clear) 12/01/21 Unknown Urine pH 5.0 (5.0-7.0) 12/01/21 Unknown Ur Specific [place] 1.016 (1.003-1.030) 12/01/21 Unknown Urine Protein 30 mg/dl mg/dL (Negative) 12/01/21 Unknown Urine Glucose (UA) Neg mg/dL (Negative) 12/01/21 Unknown Urine Ketones Neg mg/dL (Negative) 12/01/21 Unknown Urine Blood Lg (Negative) 12/01/21 Unknown Urine Nitrite Pos (Negative) 12/01/21 Unknown Urine Bilirubin Neg (Negative) 12/01/21 Unknown Urine Urobilinogen < 2.0 mg/dL (<2.0) 12/01/21 Unknown Ur Leukocyte Esterase Mod (Negative) 12/01/21 Unknown Urine WBC (Auto) 30.0 /HPF (0.0-6.0) H 12/01/21 Unknown Urine RBC (Auto) 10.0 /HPF (0.0-6.0) 12/01/21 Unknown U Epithel Cells (Auto) 2.0 /HPF (0-13.0) 12/01/21 Unknown Urine Bacteria (Auto) 1+ /HPF (Negative) 12/01/21 Unknown Hyaline Casts 1 /LPF 12/01/21 Unknown Urine Mucus 3+ /HPF 12/01/21 Unknown Salicylates < 0.3 mg/dL (2.8-20.0) L 12/01/21 21:41 Acetaminophen 5.0 ug/mL (10.0-30.0) L 12/01/21 21:41 Plasma/Serum Alcohol < 0.01 % (0-0.07) 12/01/21 21:41 Microbiology: Microbiology 12/01/21 21:41 Peripheral/Venous Blood Culture - Preliminary Culture in Progress 12/01/21 21:41 Peripheral/Venous Blood Culture - Preliminary Culture in Progress - Imaging and Cardiology CT scan - abdomen: report reviewed CT Scan - head: report reviewed Assessment and Plan VTE prophylaxis?: Chemical Plan of care discussed with patient/family: Yes - Patient Problems (1) Urinary tract infection Current Visit: Yes Status: Acute Plan to address problem: Admit the patient to the medical floor. Rocephin 2 g IV daily. We will send the urine for culture. Recheck CBC in the morning (2) Acute encephalopathy Current Visit: Yes Status: Acute Plan to address problem: Most likely secondary to colitis and UTI. We put the patient on NPO. IV fluid D5 half-normal saline at the rate of 100 cc/h. Rocephin 2 g IV daily. With Flagyl 500 mg IV every 8 hours. Recheck CBC BMP in the morning (3) Acute abdominal pain Current Visit: Yes Status: Acute Plan to address problem: NPO. IV fluid D5 half-normal saline at the rate of 100 cc/h. Pepcid 20 mg IV every 12 hours. Morphine 2 mg IV every 4 hours as needed (4) H/O right hemicolectomy Current Visit: No Status: Acute Plan to address problem: Stable. Outpatient follow-up with surgery (5) Colitis Current Visit: Yes Status: Acute Plan to address problem: NPO. IV fluid D5 half-normal saline at the rate of 100 cc/h. Rocephin 2 g IV daily. With Flagyl 500 mg IV every 8 hours. Recheck CBC BMP in the morning (6) Hypokalemia Current Visit: No Status: Acute Plan to address problem: Potassium is supplemented. Recheck BMP in the morning (7) DVT prophylaxis Current Visit: No Status: Acute Plan to address problem: Heparin 5000 units subcu every 12 hours for DVT prophylaxis. Pepcid 20 mg IV every 12 hours for GI prophylaxis. Patient is a full code
[2021-12-02] MEDS: IPRATROPIUM/ALBUTEROL SULFATE 3 ML AMPUL.NEB IH SCH ×2 (03:37→08:37)
[2021-12-02] MEDS: metroNIDAZOLE/NS 500 MG/100 ML 500 MG/100 ML BAG IV SCH ×3 (03:55→17:42)
[2021-12-02] MEDS: D5W/0.45% NACL 1,000 ML IV SCH (04:48)
--- NOTE | 2021-12-02 08:02 | Progress Note ---
Assessment and Plan Assessment and plan: --Colitis Current Visit: Yes Status: Acute NPO. IV fluid D5 half-normal saline at the rate of 100 cc/h. DC Rocephin, add Levaquin 750 mg IV daily, continue Flagyl 500 mg IV every 8 hours. Supportive care with pain medications GI consulted informed Dr. Kamara --Acute abdominal pain Current Visit: Yes Status: Acute Secondary to acute colitis Treat the underlying cause N.p.o. status, follow GI evaluation and recommendation --H/O right hemicolectomy Current Visit: No Status: Acute Stable. Supportive care --GI prophylaxis; IV Protonix, supportive care --Urinary tract infection Current Visit: Yes Status: Acute Empiric antibiotics, follow cultures, IV fluids --Acute metabolic encephalopathy/present on admission Current Visit: Yes Status: Acute Treat the underlying UTI and acute colitis Closely monitor -- Hypokalemia Current Visit: No Status: Acute Potassium is supplemented. Monitor electrolytes --Ongoing tobacco use; Current Visit: No Status: Chronic Smoking cessation counseling, advised nicotine patch Advised rehab --DVT prophylaxis; Current Visit: No Status: Acute Heparin 5000 units subcu every 12 hours Follow GI evaluation and recommendations Closely monitor patient and adjust management as needed Plan of care reviewed with the patient and her nurse Prolonged care, spent 35 minutes Advance care planning: I discussed with patient, her condition, diagnosis discussed with her, treatment plan, I discussed with her consultation with GI I discussed with her the prognosis, discussed with her GI recommendations and discharge planning Additional time spent +35 minutes History Interval history: I have seen and examined the patient at the bedside Patient's chart and medications reviewed Patient complains of vague abdominal pain CT abdomen and pelvis findings consistent with acute colitis Patient's antibiotics changed to Levaquin and Flagyl GI consulted. Vital signs stable Hospitalist Physical - Constitutional Vitals: Temp Pulse Resp BP Pulse Ox 98.2 F 84 18 176/74 100 12/02/21 02:56 12/02/21 05:00 12/02/21 05:00 12/02/21 05:00 12/02/21 05:00 General appearance: Present: no acute distress, well-nourished - EENT Eyes: Present: PERRL, EOM intact - Neck Neck: Present: supple, normal ROM - Respiratory Respiratory effort: normal Respiratory: bilateral: diminished, rhonchi, negative: rales, wheezing - Cardiovascular Rhythm: regular Heart Sounds: Present: S1 & S2 - Extremities Extremities: no ischemia, No edema - Abdominal General gastrointestinal: soft, tender (Vague tenderness, no guarding no rigidity), non-distended, normal bowel sounds - Integumentary Integumentary: Present: clear, warm - Psychiatric Psychiatric: appropriate mood/affect, cooperative - Neurologic Neurologic: CNII-XII intact, moves all extremities HEART Score - HEART Score Troponin: Troponin T < 0.010 ng/mL (0.00-0.029) 12/01/21 21:41 Results - Labs CBC & Chem 7: 12/01/21 21:41 12/02/21 10:00 Labs: Laboratory Last Values WBC 10.2 K/mm3 (4.5-11.0) 12/01/21 21:41 RBC 4.51 M/mm3 (3.65-5.03) 12/01/21 21:41 Hgb 12.8 gm/dl (10.1-14.3) 12/01/21 21:41 Hct 38.6 % (30.3-42.9) 12/01/21 21:41 MCV 86 fl (79-97) 12/01/21 21:41 MCH 28 pg (28-32) 12/01/21 21:41 MCHC 33 % (30-34) 12/01/21 21:41 RDW 20.2 % (13.2-15.2) H 12/01/21 21:41 Plt Count 277 K/mm3 (140-440) 12/01/21 21:41 Add Manual Diff Complete 12/01/21 21:41 Total Counted 100 12/01/21 21:41 Seg Neuts % (Manual) 81.0 % (40.0-70.0) H 12/01/21 21:41 Band Neutrophils % 3.0 % 12/01/21 21:41 Lymphocytes % (Manual) 15.0 % (13.4-35.0) 12/01/21 21:41 Reactive Lymphs % (Man) 0 % 12/01/21 21:41 Monocytes % (Manual) 1.0 % (0.0-7.3) 12/01/21 21:41 Eosinophils % (Manual) 0 % (0.0-4.3) 12/01/21 21:41 Basophils % (Manual) 0 % (0.0-1.8) 12/01/21 21:41 Metamyelocytes % 0 % 12/01/21 21:41 Myelocytes % 0 % 12/01/21 21:41 Promyelocytes % 0 % 12/01/21 21:41 Blast Cells % 0 % 12/01/21 21:41 Nucleated RBC % Not Reportable 12/01/21 21:41 Seg Neutrophils # Man 8.3 K/mm3 (1.8-7.7) H 12/01/21 21:41 Band Neutrophils # 0.3 K/mm3 12/01/21 21:41 Lymphocytes # (Manual) 1.5 K/mm3 (1.2-5.4) 12/01/21 21:41 Abs React Lymphs (Man) 0.0 K/mm3 12/01/21 21:41 Monocytes # (Manual) 0.1 K/mm3 (0.0-0.8) 12/01/21 21:41 Eosinophils # (Manual) 0.0 K/mm3 (0.0-0.4) 12/01/21 21:41 Basophils # (Manual) 0.0 K/mm3 (0.0-0.1) 12/01/21 21:41 Metamyelocytes # 0.0 K/mm3 12/01/21 21:41 Myelocytes # 0.0 K/mm3 12/01/21 21:41 Promyelocytes # 0.0 K/mm3 12/01/21 21:41 Blast Cells # 0.0 K/mm3 12/01/21 21:41 WBC Morphology Not Reportable 12/01/21 21:41 Hypersegmented Neuts Not Reportable 12/01/21 21:41 Hyposegmented Neuts Not Reportable 12/01/21 21:41 Hypogranular Neuts Not Reportable 12/01/21 21:41 Smudge Cells Not Reportable 12/01/21 21:41 Toxic Granulation Not Reportable 12/01/21 21:41 Toxic Vacuolation Not Reportable 12/01/21 21:41 Dohle Bodies Not Reportable 12/01/21 21:41 Pelger-Huet Anomaly Not Reportable 12/01/21 21:41 Ashlyn Rods Not Reportable 12/01/21 21:41 Platelet Estimate Consistent w auto 12/01/21 21:41 Clumped Platelets Not Reportable 12/01/21 21:41 Plt Clumps, EDTA Not Reportable 12/01/21 21:41 Large Platelets Not Reportable 12/01/21 21:41 Giant Platelets Not Reportable 12/01/21 21:41 Platelet Satelliting Not Reportable 12/01/21 21:41 Plt Morphology Comment Not Reportable 12/01/21 21:41 RBC Morphology Not Reportable 12/01/21 21:41 Dimorphic RBCs Not Reportable 12/01/21 21:41 Polychromasia Not Reportable 12/01/21 21:41 Hypochromasia 1+ 12/01/21 21:41 Poikilocytosis Not Reportable 12/01/21 21:41 Anisocytosis 1+ 12/01/21 21:41 Microcytosis 1+ 12/01/21 21:41 Macrocytosis Not Reportable 12/01/21 21:41 Spherocytes Not Reportable 12/01/21 21:41 Pappenheimer Bodies Not Reportable 12/01/21 21:41 Sickle Cells Not Reportable 12/01/21 21:41 Target Cells Not Reportable 12/01/21 21:41 Tear Drop Cells Not Reportable 12/01/21 21:41 Ovalocytes Not Reportable 12/01/21 21:41 Helmet Cells Not Reportable 12/01/21 21:41 [place] Bodies Not Reportable 12/01/21 21:41 [place] Rings Not Reportable 12/01/21 21:41 [place] Cells Not Reportable 12/01/21 21:41 Bite Cells Not Reportable 12/01/21 21:41 Crenated Cell Not Reportable 12/01/21 21:41 Elliptocytes Not Reportable 12/01/21 21:41 Acanthocytes (Spur) Not Reportable 12/01/21 21:41 Rouleaux Not Reportable 12/01/21 21:41 Hemoglobin C Crystals Not Reportable 12/01/21 21:41 Schistocytes Not Reportable 12/01/21 21:41 Malaria parasites Not Reportable 12/01/21 21:41 [place] Bodies Not Reportable 12/01/21 21:41 Hem Pathologist Commnt No 12/01/21 21:41 PT 13.1 Sec. (12.2-14.9) 12/01/21 21:41 INR 0.90 (0.87-1.13) 12/01/21 21:41 APTT 31.2 Sec. (24.2-36.6) 12/01/21 21:41 Sodium 136 mmol/L (137-145) L 12/01/21 21:41 Potassium 3.5 mmol/L (3.6-5.0) L 12/01/21 21:41 Chloride 101.7 mmol/L (98-107) 12/01/21 21:41 Carbon Dioxide 24 mmol/L (22-30) 12/01/21 21:41 Anion Gap 14 mmol/L 12/01/21 21:41 BUN 7 mg/dL (7-17) 12/01/21 21:41 Creatinine 0.6 mg/dL (0.6-1.2) 12/01/21 21:41 Estimated GFR > 60 ml/min 12/01/21 21:41 BUN/Creatinine Ratio 12 % 12/01/21 21:41 Glucose 85 mg/dL (65-100) 12/01/21 21:41 Lactic Acid 1.70 mmol/L (0.7-2.0) 12/01/21 21:41 Calcium 8.9 mg/dL (8.4-10.2) 12/01/21 21:41 Total Bilirubin 0.30 mg/dL (0.1-1.2) 12/01/21 21:41 Direct Bilirubin < 0.2 mg/dL (0-0.2) 12/01/21 21:41 Indirect Bilirubin 0.1 mg/dL 12/01/21 21:41 AST 19 units/L (5-40) 12/01/21 21:41 ALT 24 units/L (7-56) 12/01/21 21:41 Alkaline Phosphatase 140 units/L (35-129) H 12/01/21 21:41 Total Creatine Kinase 24 units/L (30-135) L 12/01/21 21:41 Troponin T < 0.010 ng/mL (0.00-0.029) 12/01/21 21:41 Total Protein 6.7 g/dL (6.3-8.2) 12/01/21 21:41 Albumin 3.4 g/dL (3.9-5) L 12/01/21 21:41 Albumin/Globulin Ratio 1.0 % 12/01/21 21:41 TSH 3.900 mlU/mL (0.270-4.200) 12/01/21 21:41 HCG, Quant 0.862 mIU/mL (0-4) 12/01/21 21:41 Urine Color Yellow (Yellow) 12/01/21 Unknown Urine Turbidity Slightly-cloudy (Clear) 12/01/21 Unknown Urine pH 5.0 (5.0-7.0) 12/01/21 Unknown Ur Specific [place] 1.016 (1.003-1.030) 12/01/21 Unknown Urine Protein 30 mg/dl mg/dL (Negative) 12/01/21 Unknown Urine Glucose (UA) Neg mg/dL (Negative) 12/01/21 Unknown Urine Ketones Neg mg/dL (Negative) 12/01/21 Unknown Urine Blood Lg (Negative) 12/01/21 Unknown Urine Nitrite Pos (Negative) 12/01/21 Unknown Urine Bilirubin Neg (Negative) 12/01/21 Unknown Urine Urobilinogen < 2.0 mg/dL (<2.0) 12/01/21 Unknown Ur Leukocyte Esterase Mod (Negative) 12/01/21 Unknown Urine WBC (Auto) 30.0 /HPF (0.0-6.0) H 12/01/21 Unknown Urine RBC (Auto) 10.0 /HPF (0.0-6.0) 12/01/21 Unknown U Epithel Cells (Auto) 2.0 /HPF (0-13.0) 12/01/21 Unknown Urine Bacteria (Auto) 1+ /HPF (Negative) 12/01/21 Unknown Hyaline Casts 1 /LPF 12/01/21 Unknown Urine Mucus 3+ /HPF 12/01/21 Unknown Salicylates < 0.3 mg/dL (2.8-20.0) L 12/01/21 21:41 Acetaminophen 5.0 ug/mL (10.0-30.0) L 12/01/21 21:41 Plasma/Serum Alcohol < 0.01 % (0-0.07) 12/01/21 21:41 Blood Type O POSITIVE 12/02/21 01:30 Antibody Screen Negative 12/02/21 01:30 Microbiology: Microbiology 12/01/21 21:41 Peripheral/Venous Blood Culture - Preliminary Culture in Progress 12/01/21 21:41 Peripheral/Venous Blood Culture - Preliminary Culture in Progress [place]/IV: Voiding Method Toilet Active Medications - Current Medications Current Medications: Generic Name Dose Route Start Last Admin Trade Name Freq PRN Reason Stop Dose Admin Acetaminophen 650 mg 12/02/21 01:16 Acetaminophen 325 Mg Tab PO Q4H PRN Pain MILD(1-3)/Fever >100.5/PAYNE Albuterol 2.5 mg 12/02/21 01:16 Albuterol 2.5 Mg/3 Ml Nebu IH Q3HRT PRN Shortness Of Breath Albuterol/Ipratropium 1 ampul 12/02/21 02:00 12/02/21 03:37 Ipratropium/Albuterol Sulfate 3 Ml Ampul.Neb IH Not Given Q6HRT SOILA Famotidine 20 mg 12/02/21 10:00 Famotidine 20 Mg/2 Ml Inj IV BID SOILA Heparin Sodium (Porcine) 5,000 unit 12/02/21 10:00 Heparin 5,000 Unit/1 Ml Vial SUB-Q Q12HR SOILA Hydromorphone HCl 0.5 mg 12/02/21 01:16 Hydromorphone 1 Mg/1 Ml Inj IV Q3H PRN Pain , Severe (7-10) Dextrose/Sodium Chloride 1,000 mls @ 100 mls/hr 12/02/21 02:00 12/02/21 04:48 D5/0.45ns IV 100 mls/hr DIRECT SOILA Administration Metronidazole 500 mg in 100 mls @ 100 mls/hr 12/02/21 02:00 12/02/21 03:55 Flagyl 500 Mg/100 Ml IV Not Given Q8H [facility] Protocol Levofloxacin/Dextrose 750 mg in 150 mls @ 100 mls/hr 12/02/21 08:00 Levaquin 750mg/150ml IV Q24H [facility] Protocol Morphine Sulfate 2 mg 12/02/21 01:16 Morphine 2 Mg/1 Ml Inj IV Q4H PRN Pain, Moderate (4-6) Ondansetron HCl 4 mg 12/02/21 01:16 Ondansetron 4 Mg/2 Ml Inj IV Q8H PRN Nausea And Vomiting Sodium Chloride 10 ml 12/02/21 10:00 Sodium Chloride 0.9% 10 Ml Flush Syringe IV BID SOILA Sodium Chloride 10 ml 12/02/21 01:16 Sodium Chloride 0.9% 10 Ml Flush Syringe IV PRN PRN LINE FLUSH
--- NOTE | 2021-12-02 08:15 | Gastroenterology Consultation ---
History of Present Illness - Reason for Consult Consult date: 12/02/21 abd pain Requesting physician: JOEL STEVENS - History of Present Illness When I went to see the patient she was not talking much she reports she is just in a lot of pain bulk of history obtained from chart Of note about 6 months ago she had right colonic perforation and underwent partial colectomy with ileostomy placement She was experiencing over the last day weakness, abdominal pain, fever, chills, confusion, and possible urinary tract infection. She reports that family members called 911 because she felt weak ill and confused. CT scan of the abdomen showed diffuse wall thickening and edema in the colon suggesting colitis. Obtained/updated/reviewed patient's current medications Past History Past Medical History: renal failure, other (IrreguLar periods, past has colostomy bag placed at [facility] on 06/29/21 per pt) Past Surgical History: Other (tubes tied. 2018, colostomy bag placed [facility] 06/29/21) Social history: other ( Unknown if ever smoked) Family history: no significant family history Medications and Allergies Allergies Allergy/AdvReac Type Severity Reaction Status Date / Time No Known Allergies Allergy Verified 07/15/21 09:56 Home Medications Medication Instructions Recorded Confirmed Last Taken Type Sodium Hypochlorite [Dakin's Full 1 applic TP Q12H 30 Days #1 bottle 07/18/21 12/02/21 Unknown Rx Strength] oxyCODONE /ACETAMINOPHEN [Percocet 2 tab PO Q6H PRN 3 Days #10 tablet 07/18/21 12/02/21 1 Day Ago Rx 5/325 mg] ~12/01/21 Active Meds: Active Medications Acetaminophen (Acetaminophen 325 Mg Tab) 650 mg PO Q4H PRN PRN Reason: Pain MILD(1-3)/Fever >100.5/PAYNE Albuterol (Albuterol 2.5 Mg/3 Ml Nebu) 2.5 mg IH Q3HRT PRN PRN Reason: Shortness Of Breath Albuterol/Ipratropium (Ipratropium/Albuterol Sulfate 3 Ml Ampul.Neb) 1 ampul IH Q6HRT SOILA Last Admin: 12/02/21 03:37 Dose: Not Given Famotidine (Famotidine 20 Mg/2 Ml Inj) 20 mg IV BID [facility] Heparin Sodium (Porcine) (Heparin 5,000 Unit/1 Ml Vial) 5,000 unit SUB-Q Q12HR SOILA Hydromorphone HCl (Hydromorphone 1 Mg/1 Ml Inj) 0.5 mg IV Q3H PRN PRN Reason: Pain , Severe (7-10) Dextrose/Sodium Chloride (D5/0.45ns) 1,000 mls @ 100 mls/hr IV DIRECT SOILA Last Admin: 12/02/21 04:48 Dose: 100 mls/hr Metronidazole (Flagyl 500 Mg/100 Ml) 500 mg in 100 mls @ 100 mls/hr IV Q8H SOILA; Protocol Last Admin: 12/02/21 03:55 Dose: Not Given Levofloxacin/Dextrose (Levaquin 750mg/150ml) 750 mg in 150 mls @ 100 mls/hr IV Q24H SOILA; Protocol Morphine Sulfate (Morphine 2 Mg/1 Ml Inj) 2 mg IV Q4H PRN PRN Reason: Pain, Moderate (4-6) Ondansetron HCl (Ondansetron 4 Mg/2 Ml Inj) 4 mg IV Q8H PRN PRN Reason: Nausea And Vomiting Sodium Chloride (Sodium Chloride 0.9% 10 Ml Flush Syringe) 10 ml IV BID SOILA Sodium Chloride (Sodium Chloride 0.9% 10 Ml Flush Syringe) 10 ml IV PRN PRN PRN Reason: LINE FLUSH Review of Systems - Review of Systems ROS unobtainable: due to mental status All systems: negative Exam - Constitutional Vital Signs: Temp Pulse Resp BP Pulse Ox 98.2 F 84 18 176/74 100 12/02/21 02:56 12/02/21 05:00 12/02/21 05:00 12/02/21 05:00 12/02/21 05:00 General appearance: other (clearly uncomfortable) - EENT Eyes: EOM intact ENT: hearing intact - Neck Neck: supple - Respiratory Respiratory effort: normal - Cardiovascular Rhythm: regular - Gastrointestinal General gastrointestinal: Present: soft, tender, other (ileostomy in place with brown stool in bag, decreased BS) - Integumentary Integumentary: Present: dry - Musculoskeletal Musculoskeletal: normal - Neurologic Neurological: strength equal bilaterally - Psychiatric Psychiatric: depressed - Labs CBC & Chem 7: 12/01/21 21:41 12/02/21 10:00 Lab Results: Laboratory Results - last 24 hr 0412/01/21 12/01/21 21:41 21:41 21:41 WBC 10.2 RBC 4.51 Hgb 12.8 Hct 38.6 MCV 86 MCH 28 MCHC 33 RDW 20.2 H Plt Count 277 Add Manual Diff Complete Total Counted 100 Seg Neuts % (Manual) 81.0 H Band Neutrophils % 3.0 Lymphocytes % (Manual) 15.0 Reactive Lymphs % (Man) 0 Monocytes % (Manual) 1.0 Eosinophils % (Manual) 0 Basophils % (Manual) 0 Metamyelocytes % 0 Myelocytes % 0 Promyelocytes % 0 Blast Cells % 0 Nucleated RBC % Not Reportable Seg Neutrophils # Man 8.3 H Band Neutrophils # 0.3 Lymphocytes # (Manual) 1.5 Abs React Lymphs (Man) 0.0 Monocytes # (Manual) 0.1 Eosinophils # (Manual) 0.0 Basophils # (Manual) 0.0 Metamyelocytes # 0.0 Myelocytes # 0.0 Promyelocytes # 0.0 Blast Cells # 0.0 WBC Morphology Not Reportable Hypersegmented Neuts Not Reportable Hyposegmented Neuts Not Reportable Hypogranular Neuts Not Reportable Smudge Cells Not Reportable Toxic Granulation Not Reportable Toxic Vacuolation Not Reportable Dohle Bodies Not Reportable Pelger-Huet Anomaly Not Reportable Ashlyn Rods Not Reportable Platelet Estimate Consistent w auto Clumped Platelets Not Reportable Plt Clumps, EDTA Not Reportable Large Platelets Not Reportable Giant Platelets Not Reportable Platelet Satelliting Not Reportable Plt Morphology Comment Not Reportable RBC Morphology Not Reportable Dimorphic RBCs Not Reportable Polychromasia Not Reportable Hypochromasia 1+ Poikilocytosis Not Reportable Anisocytosis 1+ Microcytosis 1+ Macrocytosis Not Reportable Spherocytes Not Reportable Pappenheimer Bodies Not Reportable Sickle Cells Not Reportable Target Cells Not Reportable Tear Drop Cells Not Reportable Ovalocytes Not Reportable Helmet Cells Not Reportable Caban-Pony Bodies Not Reportable [place] Rings Not Reportable [place] Cells Not Reportable Bite Cells Not Reportable Crenated Cell Not Reportable Elliptocytes Not Reportable Acanthocytes (Spur) Not Reportable Rouleaux Not Reportable Hemoglobin C Crystals Not Reportable Schistocytes Not Reportable Malaria parasites Not Reportable Geovanni Bodies Not Reportable Hem Pathologist Commnt No PT 13.1 INR 0.90 APTT 31.2 Sodium 136 L Potassium 3.5 L Chloride 101.7 Carbon Dioxide 24 Anion Gap 14 BUN 7 Creatinine 0.6 Estimated GFR > 60 BUN/Creatinine Ratio 12 Glucose 85 Lactic Acid Calcium 8.9 Total Bilirubin 0.30 Direct Bilirubin < 0.2 Indirect Bilirubin 0.1 AST 19 ALT 24 Alkaline Phosphatase 140 H Total Creatine Kinase 24 L Troponin T < 0.010 Total Protein 6.7 Albumin 3.4 L Albumin/Globulin Ratio 1.0 TSH HCG, Quant Urine Color Urine Turbidity Urine pH Ur Specific Mary[place] Urine Protein Urine Glucose (UA) Urine Ketones Urine Blood Urine Nitrite Urine Bilirubin Urine Urobilinogen Ur Leukocyte Esterase Urine WBC (Auto) Urine RBC (Auto) U Epithel Cells (Auto) Urine Bacteria (Auto) Hyaline Casts Urine Mucus Salicylates Acetaminophen Plasma/Serum Alcohol Blood Type Antibody Screen 12/01/21 12/01/21 12/01/21 21:41 21:41 21:41 WBC RBC Hgb Hct MCV MCH MCHC RDW Plt Count Add Manual Diff Total Counted Seg Neuts % (Manual) Band Neutrophils % Lymphocytes % (Manual) Reactive Lymphs % (Man) Monocytes % (Manual) Eosinophils % (Manual) Basophils % (Manual) Metamyelocytes % Myelocytes % Promyelocytes % Blast Cells % Nucleated RBC % Seg Neutrophils # Man Band Neutrophils # Lymphocytes # (Manual) Abs React Lymphs (Man) Monocytes # (Manual) Eosinophils # (Manual) Basophils # (Manual) Metamyelocytes # Myelocytes # Promyelocytes # Blast Cells # WBC Morphology Hypersegmented Neuts Hyposegmented Neuts Hypogranular Neuts Smudge Cells Toxic Granulation Toxic Vacuolation Dohle Bodies Pelger-Huet Anomaly Ashlyn Rods Platelet Estimate Clumped Platelets Plt Clumps, EDTA Large Platelets Giant Platelets Platelet Satelliting Plt Morphology Comment RBC Morphology Dimorphic RBCs Polychromasia Hypochromasia Poikilocytosis Anisocytosis Microcytosis Macrocytosis Spherocytes Pappenheimer Bodies Sickle Cells Target Cells Tear Drop Cells Ovalocytes Helmet Cells Caban-Pony Bodies [place] Rings Lila Cells Bite Cells Crenated Cell Elliptocytes Acanthocytes (Spur) Rouleaux Hemoglobin C Crystals Schistocytes Malaria parasites Geovanni Bodies Hem Pathologist Commnt PT INR APTT Sodium Potassium Chloride Carbon Dioxide Anion Gap BUN Creatinine Estimated GFR BUN/Creatinine Ratio Glucose Lactic Acid 1.70 Calcium Total Bilirubin Direct Bilirubin Indirect Bilirubin AST ALT Alkaline Phosphatase Total Creatine Kinase Troponin T Total Protein Albumin Albumin/Globulin Ratio TSH HCG, Quant Urine Color Urine Turbidity Urine pH Ur Specific Marydel Urine Protein Urine Glucose (UA) Urine Ketones Urine Blood Urine Nitrite Urine Bilirubin Urine Urobilinogen Ur Leukocyte Esterase Urine WBC (Auto) Urine RBC (Auto) U Epithel Cells (Auto) Urine Bacteria (Auto) Hyaline Casts Urine Mucus Salicylates < 0.3 L Acetaminophen 5.0 L Plasma/Serum Alcohol Blood Type Antibody Screen 12/01/21 12/01/21 12/01/21 21:41 21:41 21:41 WBC RBC Hgb Hct MCV MCH MCHC RDW Plt Count Add Manual Diff Total Counted Seg Neuts % (Manual) Band Neutrophils % Lymphocytes % (Manual) Reactive Lymphs % (Man) Monocytes % (Manual) Eosinophils % (Manual) Basophils % (Manual) Metamyelocytes % Myelocytes % Promyelocytes % Blast Cells % Nucleated RBC % Seg Neutrophils # Man Band Neutrophils # Lymphocytes # (Manual) Abs React Lymphs (Man) Monocytes # (Manual) Eosinophils # (Manual) Basophils # (Manual) Metamyelocytes # Myelocytes # Promyelocytes # Blast Cells # WBC Morphology Hypersegmented Neuts Hyposegmented Neuts Hypogranular Neuts Smudge Cells Toxic Granulation Toxic Vacuolation Dohle Bodies Pelger-Huet Anomaly Ashlyn Rods Platelet Estimate Clumped Platelets Plt Clumps, EDTA Large Platelets Giant Platelets Platelet Satelliting Plt Morphology Comment RBC Morphology Dimorphic RBCs Polychromasia Hypochromasia Poikilocytosis Anisocytosis Microcytosis Macrocytosis Spherocytes Pappenheimer Bodies Sickle Cells Target Cells Tear Drop Cells Ovalocytes Helmet Cells Caban-Pony Bodies [place] Rings Lila Cells Bite Cells Crenated Cell Elliptocytes Acanthocytes (Spur) Rouleaux Hemoglobin C Crystals Schistocytes Malaria parasites Geovanni Bodies Hem Pathologist Commnt PT INR APTT Sodium Potassium Chloride Carbon Dioxide Anion Gap BUN Creatinine Estimated GFR BUN/Creatinine Ratio Glucose Lactic Acid Calcium Total Bilirubin Direct Bilirubin Indirect Bilirubin AST ALT Alkaline Phosphatase Total Creatine Kinase Troponin T Total Protein Albumin Albumin/Globulin Ratio TSH 3.900 HCG, Quant 0.862 Urine Color Urine Turbidity Urine pH Ur Specific [place] Urine Protein Urine Glucose (UA) Urine Ketones Urine Blood Urine Nitrite Urine Bilirubin Urine Urobilinogen Ur Leukocyte Esterase Urine WBC (Auto) Urine RBC (Auto) U Epithel Cells (Auto) Urine Bacteria (Auto) Hyaline Casts Urine Mucus Salicylates Acetaminophen Plasma/Serum Alcohol < 0.01 Blood Type Antibody Screen 12/01/21 12/02/21 Unknown 01:30 WBC RBC Hgb Hct MCV MCH MCHC RDW Plt Count Add Manual Diff Total Counted Seg Neuts % (Manual) Band Neutrophils % Lymphocytes % (Manual) Reactive Lymphs % (Man) Monocytes % (Manual) Eosinophils % (Manual) Basophils % (Manual) Metamyelocytes % Myelocytes % Promyelocytes % Blast Cells % Nucleated RBC % Seg Neutrophils # Man Band Neutrophils # Lymphocytes # (Manual) Abs React Lymphs (Man) Monocytes # (Manual) Eosinophils # (Manual) Basophils # (Manual) Metamyelocytes # Myelocytes # Promyelocytes # Blast Cells # WBC Morphology Hypersegmented Neuts Hyposegmented Neuts Hypogranular Neuts Smudge Cells Toxic Granulation Toxic Vacuolation Dohle Bodies Pelger-Huet Anomaly Ashlyn Rods Platelet Estimate Clumped Platelets Plt Clumps, EDTA Large Platelets Giant Platelets Platelet Satelliting Plt Morphology Comment RBC Morphology Dimorphic RBCs Polychromasia Hypochromasia Poikilocytosis Anisocytosis Microcytosis Macrocytosis Spherocytes Pappenheimer Bodies Sickle Cells Target Cells Tear Drop Cells Ovalocytes Helmet Cells Caban-Pony Bodies [place] Rings Lila Cells Bite Cells Crenated Cell Elliptocytes Acanthocytes (Spur) Rouleaux Hemoglobin C Crystals Schistocytes Malaria parasites Geovanni Bodies Hem Pathologist Commnt PT INR APTT Sodium Potassium Chloride Carbon Dioxide Anion Gap BUN Creatinine Estimated GFR BUN/Creatinine Ratio Glucose Lactic Acid Calcium Total Bilirubin Direct Bilirubin Indirect Bilirubin AST ALT Alkaline Phosphatase Total Creatine Kinase Troponin T Total Protein Albumin Albumin/Globulin Ratio TSH HCG, Quant Urine Color Yellow Urine Turbidity Slightly-cloudy Urine pH 5.0 Ur Specific Marydel 1.016 Urine Protein 30 mg/dl Urine Glucose (UA) Neg Urine Ketones Neg Urine Blood Lg Urine Nitrite Pos Urine Bilirubin Neg Urine Urobilinogen < 2.0 Ur Leukocyte Esterase Mod Urine WBC (Auto) 30.0 H Urine RBC (Auto) 10.0 U Epithel Cells (Auto) 2.0 Urine Bacteria (Auto) 1+ Hyaline Casts 1 Urine Mucus 3+ Salicylates Acetaminophen Plasma/Serum Alcohol Blood Type O POSITIVE Antibody Screen Negative Assessment and Plan Unclear etiology for the patient's symptoms She has a diverting ileostomy so infectious colitis from new infection unlikely however could have had colonization and activation of C. difficile so we will test for that however need to test for the C. difficile from any rectal output not from the ileostomy Rest of ddx ischemia, etc. No evidence for perforation on imaging and she does not have peritoneal signs on my exam Continue supportive care, empiric abx, serial abdominal exams ok for ice chips but I suspect she would not tolerate diet yet. I will continue to follow with you - Patient Problems (1) Acute abdominal pain Current Visit: Yes Status: Acute (2) Colitis Current Visit: Yes Status: Acute
[2021-12-02] MEDS ORDERED: cefTRIAXone/NS 2 GM/100 ML 2 GM/100 ML BAG IV SCH (10:00)
[2021-12-02] MEDS: HEPARIN 5,000 UNIT/1 ML VIAL SUB-Q SCH ×2 (10:00→21:18)
[2021-12-02] MEDS: FAMOTIDINE 20 MG/2 ML INJ IV SCH ×2 (10:00→21:17)
[2021-12-02] MEDS: MORPHINE 2 MG/1 ML INJ IV PRN (10:17)
[2021-12-02 10:39] LABS: Blood Urea Nitrogen 5 mg/dL (7-17); Calcium 8.2 mg/dL (8.4-10.2); Hemolysis Index 5
[2021-12-02 10:40] LABS: BUN/Creatinine Ratio 8
--- NOTE | 2021-12-02 11:56 | Electrocardiograph Report ---
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
[2021-12-03] MEDS: metroNIDAZOLE/NS 500 MG/100 ML 500 MG/100 ML BAG IV SCH ×3 (01:24→21:42)
[2021-12-03] MEDS: D5W/0.45% NACL 1,000 ML IV SCH (02:42)
--- NOTE | 2021-12-03 07:48 | Progress Note ---
Assessment and Plan Assessment and plan: --Acute colitis; Current Visit: Yes Status: Acute IV fluid D5 half-normal saline at the rate of 100 cc/h. Continue Levaquin 750 mg IV daily, continue Flagyl 500 mg IV every 8 hours. Supportive care with pain medications GI following, started on clear liquids --Mild hypotension; probably secondary to underlying infectious process N.p.o. status poor oral intake Managed with IV fluids D5 normal saline --Acute abdominal pain Current Visit: Yes Status: Acute Secondary to acute colitis Treat the underlying cause N.p.o. status, follow GI evaluation and recommendation --H/O right hemicolectomy Current Visit: No Status: Acute Stable. Supportive care --GI prophylaxis; IV Protonix, supportive care --Urinary tract infection Current Visit: Yes Status: Acute Empiric antibiotics, follow cultures, IV fluids --Acute metabolic encephalopathy/present on admission Current Visit: Yes Status: Acute Treat the underlying UTI and acute colitis Closely monitor -- Hypokalemia Current Visit: No Status: Acute Potassium is supplemented. Monitor electrolytes --Ongoing tobacco use; Current Visit: No Status: Chronic Smoking cessation counseling, advised nicotine patch Advised rehab --DVT prophylaxis; Current Visit: No Status: Acute Heparin 5000 units subcu every 12 hours Follow GI evaluation and recommendations Closely monitor patient and adjust management as needed Plan of care reviewed with the patient and her nurse Prolonged care, spent 35 minutes Advance care planning: I discussed with patient, her condition, diagnosis discussed with her, treatment plan, I discussed with her consultation with GI I discussed with her the prognosis, discussed with her GI recommendations and discharge planning Additional time spent +35 minutes Brief history and daily hospital course: 46-year-old female patient with significant history of polysubstance abuse right hemicolectomy with ileostomy and left lower quadrant colostomy was admitted through emergency room with abdominal pain, CT abdomen findings consistent with acute colitis, patient is started on Levaquin and Flagyl n.p.o. status, evaluated by GI, as symptoms have been improved discontinued n.p.o. status and started on clear liquids/. Patient's stool for C. difficile is pending 12/03/2021; GI started on clear liquids Continue IV antibiotics, follow cultures, supportive care History Interval history: I have seen and examined the patient at the bedside Patient's chart and medications reviewed No new events reported by the nursing Patient's abdominal plain slightly improved Vital signs noted Hospitalist Physical - Constitutional Vitals: Temp Pulse Resp BP Pulse Ox 98.2 F 79 18 99/54 96 12/03/21 05:30 12/03/21 05:30 12/03/21 05:30 12/03/21 05:30 12/03/21 05:30 General appearance: Present: no acute distress, well-nourished - EENT Eyes: Present: PERRL, EOM intact - Neck Neck: Present: supple, normal ROM - Respiratory Respiratory effort: normal, labored Respiratory: bilateral: diminished, rales, negative: rhonchi, wheezing - Cardiovascular Rhythm: regular Heart Sounds: Present: S1 & S2 - Extremities Extremities: no ischemia, No edema - Abdominal General gastrointestinal: soft, non-tender, non-distended, normal bowel sounds - Integumentary Integumentary: Present: clear, warm - Psychiatric Psychiatric: appropriate mood/affect, cooperative - Neurologic Neurologic: CNII-XII intact, moves all extremities HEART Score - HEART Score Troponin: Troponin T < 0.010 ng/mL (0.00-0.029) 12/01/21 21:41 Results - Labs CBC & Chem 7: 12/03/21 06:54 12/03/21 06:54 Labs: Laboratory Last Values WBC 10.2 K/mm3 (4.5-11.0) 12/01/21 21:41 RBC 4.51 M/mm3 (3.65-5.03) 12/01/21 21:41 Hgb 12.8 gm/dl (10.1-14.3) 12/01/21 21:41 Hct 38.6 % (30.3-42.9) 12/01/21 21:41 MCV 86 fl (79-97) 12/01/21 21:41 MCH 28 pg (28-32) 12/01/21 21:41 MCHC 33 % (30-34) 12/01/21 21:41 RDW 20.2 % (13.2-15.2) H 12/01/21 21:41 Plt Count 277 K/mm3 (140-440) 12/01/21 21:41 Add Manual Diff Complete 12/01/21 21:41 Total Counted 100 12/01/21 21:41 Seg Neuts % (Manual) 81.0 % (40.0-70.0) H 12/01/21 21:41 Band Neutrophils % 3.0 % 12/01/21 21:41 Lymphocytes % (Manual) 15.0 % (13.4-35.0) 12/01/21 21:41 Reactive Lymphs % (Man) 0 % 12/01/21 21:41 Monocytes % (Manual) 1.0 % (0.0-7.3) 12/01/21 21:41 Eosinophils % (Manual) 0 % (0.0-4.3) 12/01/21 21:41 Basophils % (Manual) 0 % (0.0-1.8) 12/01/21 21:41 Metamyelocytes % 0 % 12/01/21 21:41 Myelocytes % 0 % 12/01/21 21:41 Promyelocytes % 0 % 12/01/21 21:41 Blast Cells % 0 % 12/01/21 21:41 Nucleated RBC % Not Reportable 12/01/21 21:41 Seg Neutrophils # Man 8.3 K/mm3 (1.8-7.7) H 12/01/21 21:41 Band Neutrophils # 0.3 K/mm3 12/01/21 21:41 Lymphocytes # (Manual) 1.5 K/mm3 (1.2-5.4) 12/01/21 21:41 Abs React Lymphs (Man) 0.0 K/mm3 12/01/21 21:41 Monocytes # (Manual) 0.1 K/mm3 (0.0-0.8) 12/01/21 21:41 Eosinophils # (Manual) 0.0 K/mm3 (0.0-0.4) 12/01/21 21:41 Basophils # (Manual) 0.0 K/mm3 (0.0-0.1) 12/01/21 21:41 Metamyelocytes # 0.0 K/mm3 12/01/21 21:41 Myelocytes # 0.0 K/mm3 12/01/21 21:41 Promyelocytes # 0.0 K/mm3 12/01/21 21:41 Blast Cells # 0.0 K/mm3 12/01/21 21:41 WBC Morphology Not Reportable 12/01/21 21:41 Hypersegmented Neuts Not Reportable 12/01/21 21:41 Hyposegmented Neuts Not Reportable 12/01/21 21:41 Hypogranular Neuts Not Reportable 12/01/21 21:41 Smudge Cells Not Reportable 12/01/21 21:41 Toxic Granulation Not Reportable 12/01/21 21:41 Toxic Vacuolation Not Reportable 12/01/21 21:41 Dohle Bodies Not Reportable 12/01/21 21:41 Pelger-Huet Anomaly Not Reportable 12/01/21 21:41 Ashlyn Rods Not Reportable 12/01/21 21:41 Platelet Estimate Consistent w auto 12/01/21 21:41 Clumped Platelets Not Reportable 12/01/21 21:41 Plt Clumps, EDTA Not Reportable 12/01/21 21:41 Large Platelets Not Reportable 12/01/21 21:41 Giant Platelets Not Reportable 12/01/21 21:41 Platelet Satelliting Not Reportable 12/01/21 21:41 Plt Morphology Comment Not Reportable 12/01/21 21:41 RBC Morphology Not Reportable 12/01/21 21:41 Dimorphic RBCs Not Reportable 12/01/21 21:41 Polychromasia Not Reportable 12/01/21 21:41 Hypochromasia 1+ 12/01/21 21:41 Poikilocytosis Not Reportable 12/01/21 21:41 Anisocytosis 1+ 12/01/21 21:41 Microcytosis 1+ 12/01/21 21:41 Macrocytosis Not Reportable 12/01/21 21:41 Spherocytes Not Reportable 12/01/21 21:41 Pappenheimer Bodies Not Reportable 12/01/21 21:41 Sickle Cells Not Reportable 12/01/21 21:41 Target Cells Not Reportable 12/01/21 21:41 Tear Drop Cells Not Reportable 12/01/21 21:41 Ovalocytes Not Reportable 12/01/21 21:41 Helmet Cells Not Reportable 12/01/21 21:41 [place] Bodies Not Reportable 12/01/21 21:41 [place] Rings Not Reportable 12/01/21 21:41 Lila Cells Not Reportable 12/01/21 21:41 Bite Cells Not Reportable 12/01/21 21:41 Crenated Cell Not Reportable 12/01/21 21:41 Elliptocytes Not Reportable 12/01/21 21:41 Acanthocytes (Spur) Not Reportable 12/01/21 21:41 Rouleaux Not Reportable 12/01/21 21:41 Hemoglobin C Crystals Not Reportable 12/01/21 21:41 Schistocytes Not Reportable 12/01/21 21:41 Malaria parasites Not Reportable 12/01/21 21:41 Geovanni Bodies Not Reportable 12/01/21 21:41 Hem Pathologist Commnt No 12/01/21 21:41 PT 13.1 Sec. (12.2-14.9) 12/01/21 21:41 INR 0.90 (0.87-1.13) 12/01/21 21:41 APTT 31.2 Sec. (24.2-36.6) 12/01/21 21:41 Sodium 139 mmol/L (137-145) 12/02/21 10:00 Potassium 3.7 mmol/L (3.6-5.0) 12/02/21 10:00 Chloride 106.1 mmol/L (98-107) 12/02/21 10:00 Carbon Dioxide 21 mmol/L (22-30) L 12/02/21 10:00 Anion Gap 16 mmol/L 12/02/21 10:00 BUN 5 mg/dL (7-17) L 12/02/21 10:00 Creatinine 0.6 mg/dL (0.6-1.2) 12/02/21 10:00 Estimated GFR > 60 ml/min 12/02/21 10:00 BUN/Creatinine Ratio 8 % 12/02/21 10:00 Glucose 110 mg/dL (65-100) H 12/02/21 10:00 Lactic Acid 1.70 mmol/L (0.7-2.0) 12/01/21 21:41 Calcium 8.2 mg/dL (8.4-10.2) L 12/02/21 10:00 Total Bilirubin 0.30 mg/dL (0.1-1.2) 12/01/21 21:41 Direct Bilirubin < 0.2 mg/dL (0-0.2) 12/01/21 21:41 Indirect Bilirubin 0.1 mg/dL 12/01/21 21:41 AST 19 units/L (5-40) 12/01/21 21:41 ALT 24 units/L (7-56) 12/01/21 21:41 Alkaline Phosphatase 140 units/L (35-129) H 12/01/21 21:41 Total Creatine Kinase 24 units/L (30-135) L 12/01/21 21:41 Troponin T < 0.010 ng/mL (0.00-0.029) 12/01/21 21:41 Total Protein 6.7 g/dL (6.3-8.2) 12/01/21 21:41 Albumin 3.4 g/dL (3.9-5) L 12/01/21 21:41 Albumin/Globulin Ratio 1.0 % 12/01/21 21:41 TSH 3.900 mlU/mL (0.270-4.200) 12/01/21 21:41 HCG, Quant 0.862 mIU/mL (0-4) 12/01/21 21:41 Urine Color Yellow (Yellow) 12/01/21 Unknown Urine Turbidity Slightly-cloudy (Clear) 12/01/21 Unknown Urine pH 5.0 (5.0-7.0) 12/01/21 Unknown Ur Specific [place] 1.016 (1.003-1.030) 12/01/21 Unknown Urine Protein 30 mg/dl mg/dL (Negative) 12/01/21 Unknown Urine Glucose (UA) Neg mg/dL (Negative) 12/01/21 Unknown Urine Ketones Neg mg/dL (Negative) 12/01/21 Unknown Urine Blood Lg (Negative) 12/01/21 Unknown Urine Nitrite Pos (Negative) 12/01/21 Unknown Urine Bilirubin Neg (Negative) 12/01/21 Unknown Urine Urobilinogen < 2.0 mg/dL (<2.0) 12/01/21 Unknown Ur Leukocyte Esterase Mod (Negative) 12/01/21 Unknown Urine WBC (Auto) 30.0 /HPF (0.0-6.0) H 12/01/21 Unknown Urine RBC (Auto) 10.0 /HPF (0.0-6.0) 12/01/21 Unknown U Epithel Cells (Auto) 2.0 /HPF (0-13.0) 12/01/21 Unknown Urine Bacteria (Auto) 1+ /HPF (Negative) 12/01/21 Unknown Hyaline Casts 1 /LPF 12/01/21 Unknown Urine Mucus 3+ /HPF 12/01/21 Unknown Salicylates < 0.3 mg/dL (2.8-20.0) L 12/01/21 21:41 Acetaminophen 5.0 ug/mL (10.0-30.0) L 12/01/21 21:41 Plasma/Serum Alcohol < 0.01 % (0-0.07) 12/01/21 21:41 Blood Type O POSITIVE 12/02/21 01:30 Antibody Screen Negative 12/02/21 01:30 Microbiology: Microbiology 12/01/21 21:41 Peripheral/Venous Blood Culture - Preliminary NO GROWTH AFTER 24 HOURS 12/01/21 21:41 Peripheral/Venous Blood Culture - Preliminary NO GROWTH AFTER 24 HOURS [place]/IV: Voiding Method Toilet Active Medications - Current Medications Current Medications: Generic Name Dose Route Start Last Admin Trade Name Freq PRN Reason Stop Dose Admin Acetaminophen 650 mg 12/02/21 01:16 Acetaminophen 325 Mg Tab PO Q4H PRN Pain MILD(1-3)/Fever >100.5/PAYNE Albuterol 2.5 mg 12/02/21 01:16 Albuterol 2.5 Mg/3 Ml Nebu IH Q3HRT PRN Shortness Of Breath Famotidine 20 mg 12/02/21 10:00 12/02/21 21:17 Famotidine 20 Mg/2 Ml Inj IV 20 mg BID SOILA Administration Heparin Sodium (Porcine) 5,000 unit 12/02/21 10:00 12/02/21 21:18 Heparin 5,000 Unit/1 Ml Vial SUB-Q 5,000 unit Q12HR SOILA Administration Hydromorphone HCl 0.5 mg 12/02/21 01:16 Hydromorphone 1 Mg/1 Ml Inj IV Q3H PRN Pain , Severe (7-10) Dextrose/Sodium Chloride 1,000 mls @ 100 mls/hr 12/02/21 02:00 12/03/21 02:42 D5/0.45ns IV 100 mls/hr DIRECT SOILA Administration Metronidazole 500 mg in 100 mls @ 100 mls/hr 12/02/21 02:00 12/03/21 01:24 Flagyl 500 Mg/100 Ml IV 100 mls/hr Q8H SOILA Administration Protocol Levofloxacin/Dextrose 750 mg in 150 mls @ 100 mls/hr 12/02/21 09:00 12/02/21 10:00 Levaquin 750mg/150ml IV 100 mls/hr Q24H SOILA Administration Protocol Morphine Sulfate 2 mg 12/02/21 01:16 12/02/21 10:17 Morphine 2 Mg/1 Ml Inj IV 2 mg Q4H PRN Administration Pain, Moderate (4-6) Ondansetron HCl 4 mg 12/02/21 01:16 Ondansetron 4 Mg/2 Ml Inj IV Q8H PRN Nausea And Vomiting Sodium Chloride 10 ml 12/02/21 10:00 12/02/21 21:18 Sodium Chloride 0.9% 10 Ml Flush Syringe IV 10 ml BID SOILA Administration Sodium Chloride 10 ml 12/02/21 01:16 Sodium Chloride 0.9% 10 Ml Flush Syringe IV PRN PRN LINE FLUSH
[2021-12-03 07:59] LABS: Hematocrit 36.5 % (30.3-42.9); Hemoglobin 11.8 gm/dl (10.1-14.3); Mean Corpuscular HGB Conc 32 % (30-34); Mean Corpuscular Volume 86 fl (79-97); Platelet Count 225 K/mm3 (140-440); Red Blood Count 4.23 M/mm3 (3.65-5.03); Red Cell Distribution Width 19.7 % (13.2-15.2)
[2021-12-03] MEDS ORDERED: D5W/0.9% NACL 1,000 ML IV SCH (08:00)
[2021-12-03 08:21] LABS: Blood Urea Nitrogen 6 mg/dL (7-17); Calcium 8.3 mg/dL (8.4-10.2); Hemolysis Index 34
[2021-12-03 08:31] LABS: BUN/Creatinine Ratio 12
--- NOTE | 2021-12-03 09:43 | Gastroenterology Progress Note ---
Assessment and Plan Patient clinically improving so continue supportive care and meds She reports she is feeling hungry we will start her on clears advance diet gradually as tolerated Please collect C. difficile sample that I ordered from rectum, not from her ileostomy Discussion: Unclear etiology for the patient's symptoms She has a diverting ileostomy so infectious colitis from new infection unlikely however could have had colonization and activation of C. difficile Rest of ddx ischemia, etc. No evidence for perforation or peristomal hernia on imaging and she does not have peritoneal signs on my exam - Patient Problems (1) Acute abdominal pain Current Visit: Yes Status: Acute (2) Colitis Current Visit: Yes Status: Acute Subjective Date of service: 12/03/21 Principal diagnosis: colitis Interval history: Patient reports mild improvement in her pain today She reports left mid abdominal pain, near the ileostomy, 8 out of 10, gradually improving, constant, worse with palpation, better with pain medication, no radiation, associated with some output of mucus from her rectum and nausea Objective - Constitutional Vitals: Temp Pulse Resp BP Pulse Ox 98.2 F 79 18 99/54 96 12/03/21 05:30 12/03/21 05:30 12/03/21 05:30 12/03/21 05:30 12/03/21 05:30 General appearance: other (Lethargic appearing but more alert and in less discomfort than yesterday) - EENT Eyes: EOM intact ENT: hearing intact - Neck Neck: supple - Respiratory Respiratory effort: normal - Cardiovascular Rhythm: regular - Gastrointestinal General gastrointestinal: Present: soft, other (Bowel sounds present. Ileostomy left mid abdomen. Mild tenderness to palpation diffusely with severe tenderness palpation in the left mid abdomen) - Labs CBC & Chem 7: 12/03/21 06:54 12/03/21 06:54 Labs: Laboratory Results - last 24 hr 12/02/21 12/03/21 12/03/21 10:00 06:54 06:54 WBC 6.4 RBC 4.23 Hgb 11.8 Hct 36.5 MCV 86 MCH 28 MCHC 32 RDW 19.7 H Plt Count 225 Sodium 139 138 Potassium 3.7 3.5 L Chloride 106.1 107.3 H Carbon Dioxide 21 L 20 L Anion Gap 16 14 BUN 5 L 6 L Creatinine 0.6 0.5 L Estimated GFR > 60 > 60 BUN/Creatinine Ratio 8 12 Glucose 110 H 109 H Calcium 8.2 L 8.3 L
[2021-12-03] MEDS: FAMOTIDINE 20 MG/2 ML INJ IV SCH ×2 (09:55→21:41)
[2021-12-03] MEDS: HEPARIN 5,000 UNIT/1 ML VIAL SUB-Q SCH ×2 (09:59→21:41)
[2021-12-03 11:54] LABS: Band Neutrophils # (Manual) 0.1 K/mm3; Basophils % (Manual) 0 % (0.0-1.8); Total Cells Counted 100
[2021-12-03 11:55] LABS: Anisocytosis 1+; Smudge Cells 1+
[2021-12-03 11:56] LABS: Hypochromasia 1+; Platelet Estimate Consistent w Auto
[2021-12-03] MEDS: POTASSIUM CHLORIDE 10 MEQ 10 MEQ/100 ML BAG IV SCH ×3 (12:00→16:17)
[2021-12-03] MEDS: MORPHINE 2 MG/1 ML INJ IV PRN ×2 (13:22→18:03)
[2021-12-04] MEDS: metroNIDAZOLE/NS 500 MG/100 ML 500 MG/100 ML BAG IV SCH (04:00)
--- NOTE | 2021-12-04 08:13 | Gastroenterology Progress Note ---
Assessment and Plan Patient clinically improving so continue supportive care and meds, I advanced her diet From GI standpoint she can be discharged with total of 7 days of ciprofloxacin and metronidazole GI will sign off please call us back if we can be of any further assistance - Patient Problems (1) Acute abdominal pain Current Visit: Yes Status: Acute (2) Colitis Current Visit: Yes Status: Acute Subjective Date of service: 12/04/21 Principal diagnosis: colitis Interval history: Patient was sleeping when I went to examine her When I woke her up, she reports she is feeling improved. Denies current abdominal pain Objective - Constitutional Vitals: Temp Pulse Resp BP Pulse Ox 98.6 F 75 18 93/54 97 12/04/21 05:12 12/04/21 05:12 12/04/21 05:12 12/04/21 05:12 12/04/21 05:12 General appearance: no acute distress - EENT Eyes: EOM intact ENT: hearing intact - Respiratory Respiratory effort: normal - Cardiovascular Rhythm: regular - Gastrointestinal General gastrointestinal: Present: soft, other (Normal bowel sounds. Ileostomy in left midabdomen. Nontender to palpation.) - Labs CBC & Chem 7: 12/03/21 06:54 12/03/21 06:54 Labs: Laboratory Results - last 24 hr 12/03/21 12/03/21 06:54 06:54 WBC 6.4 RBC 4.23 Hgb 11.8 Hct 36.5 MCV 86 MCH 28 MCHC 32 RDW 19.7 H Plt Count 225 Add Manual Diff Complete Total Counted 100 Seg Neuts % (Manual) 80.0 H Band Neutrophils % 2.0 Lymphocytes % (Manual) 9.0 L Reactive Lymphs % (Man) 2.0 Monocytes % (Manual) 2.0 Eosinophils % (Manual) 5.0 H Basophils % (Manual) 0 Metamyelocytes % 0 Myelocytes % 0 Promyelocytes % 0 Blast Cells % 0 Nucleated RBC % Not Reportable Seg Neutrophils # Man 5.1 Band Neutrophils # 0.1 Lymphocytes # (Manual) 0.6 L Abs React Lymphs (Man) 0.1 Monocytes # (Manual) 0.1 Eosinophils # (Manual) 0.3 Basophils # (Manual) 0.0 Metamyelocytes # 0.0 Myelocytes # 0.0 Promyelocytes # 0.0 Blast Cells # 0.0 WBC Morphology Not Reportable Hypersegmented Neuts Not Reportable Hyposegmented Neuts Not Reportable Hypogranular Neuts Not Reportable Smudge Cells 1+ Toxic Granulation Not Reportable Toxic Vacuolation Not Reportable Dohle Bodies Not Reportable Pelger-Huet Anomaly Not Reportable Ashlyn Rods Not Reportable Platelet Estimate Consistent w auto Clumped Platelets Not Reportable Plt Clumps, EDTA Not Reportable Large Platelets Not Reportable Giant Platelets Not Reportable Platelet Satelliting Not Reportable Plt Morphology Comment Not Reportable RBC Morphology Not Reportable Dimorphic RBCs Not Reportable Polychromasia Not Reportable Hypochromasia 1+ Poikilocytosis Not Reportable Anisocytosis 1+ Microcytosis 1+ Macrocytosis Not Reportable Spherocytes Not Reportable Pappenheimer Bodies Not Reportable Sickle Cells Not Reportable Target Cells Not Reportable Tear Drop Cells Not Reportable Ovalocytes Not Reportable Helmet Cells Not Reportable [place] Bodies Not Reportable [place] Rings Not Reportable Lila Cells Not Reportable Bite Cells Not Reportable Crenated Cell Not Reportable Elliptocytes Not Reportable Acanthocytes (Spur) Not Reportable Rouleaux Not Reportable Hemoglobin C Crystals Not Reportable Schistocytes Not Reportable Malaria parasites Not Reportable Geovanni Bodies Not Reportable Hem Pathologist Commnt No Sodium 138 Potassium 3.5 L Chloride 107.3 H Carbon Dioxide 20 L Anion Gap 14 BUN 6 L Creatinine 0.5 L Estimated GFR > 60 BUN/Creatinine Ratio 12 Glucose 109 H Calcium 8.3 L
[2021-12-04] MEDS: HEPARIN 5,000 UNIT/1 ML VIAL SUB-Q SCH (09:17)
[2021-12-04] MEDS ORDERED: levoFLOXacin 750 MG TAB PO SCH (10:00)
[2021-12-04] MEDS ORDERED: FAMOTIDINE 20 MG TAB PO SCH (10:00)
[2021-12-04 11:57] VITALS: BP 110/68
[2021-12-04] MEDS ORDERED: metroNIDAZOLE 500 MG TAB PO SCH (12:00)
--- NOTE | 2021-12-04 12:32 | Discharge Summary ---
Providers - Providers Date of Admission: 12/02/21 01:29 Date of discharge: 12/04/21 Attending physician: JOEL STEVENS 12/02/21 07:48 Consult to Physician [CONS] Routine Comment: Consulting Provider: MELODIE SHER Physician Instructions: Reason For Exam: Acute colitis/abdominal pain Primary care physician: [employer] Hospitalization Condition: Good Hospital course: --Acute colitis; Current Visit: Yes Status: Acute IV fluid D5 half-normal saline at the rate of 100 cc/h. Continue Levaquin 750 mg IV daily, continue Flagyl 500 mg IV every 8 hours. Supportive care with pain medications GI following, started on clear liquids --Mild hypotension; probably secondary to underlying infectious process N.p.o. status poor oral intake Managed with IV fluids D5 normal saline --Acute abdominal pain Current Visit: Yes Status: Acute Secondary to acute colitis Treat the underlying cause N.p.o. status, follow GI evaluation and recommendation --H/O right hemicolectomy Current Visit: No Status: Acute Stable. Supportive care --GI prophylaxis; IV Protonix, supportive care --Urinary tract infection Current Visit: Yes Status: Acute Empiric antibiotics, follow cultures, IV fluids --Acute metabolic encephalopathy/present on admission Current Visit: Yes Status: Acute Treat the underlying UTI and acute colitis Closely monitor -- Hypokalemia Current Visit: No Status: Acute Potassium is supplemented. Monitor electrolytes --Ongoing tobacco use; Current Visit: No Status: Chronic Smoking cessation counseling, advised nicotine patch Advised rehab Disposition: 01 HOME / SELF CARE / HOMELESS Final Discharge Diagnosis (Prints w/discharge instructions): Acute colitis. Sepsis secondary to urinary tract infection. Hypotension improved. Abdominal pain resolved. History of right hemicolectomy. Acute metabolic encephalopathy resolved. Hypokalemia resolved. Ongoing tobacco use advised to quit Time spent for discharge: 35 minutes Core Measure Documentation - Palliative Care Palliative Care/ Comfort Measures: Not Applicable - Core Measures Any of the following diagnoses?: none Exam - Constitutional Vitals: Temp Pulse Resp BP Pulse Ox 97.4 F L 65 20 110/68 98 12/04/21 11:14 12/04/21 11:14 12/04/21 11:14 12/04/21 11:14 12/04/21 11:14 Plan Activity: advance as tolerated, fall precautions Diet: advance as tolerated, other (Mechanical soft diet, advance as tolerated) Additional Instructions: If you have worsening symptoms contact MD or go to the nearest emergency room as needed. Continue mechanical soft diet, advance as tolerated. Area worsening symptoms contact MD or go to the nearest emergency room as needed. Smoking cessation counseling done, strongly advised to quit tobacco use Follow up with: PRIMARY CARE, [Primary Care Provider] - 3-5 Days MELODIE SHER MD [Staff Physician] - 14 Days Prescriptions: metroNIDAZOLE [Flagyl TAB] 500 mg PO Q8HR #12 tablet levoFLOXacin [Levaquin TAB] 750 mg PO DAILY #7 tablet Famotidine [Pepcid] 20 mg PO BID #30 tablet oxyCODONE /ACETAMINOPHEN [Percocet 5/325 mg] 2 tab PO Q6H PRN 3 Days #10 tablet PRN Reason: Pain, Moderate (4-6)
== END 2021-12-04 13:25 | disposition home or self-care (01) | DRG 871 ==
LOC: ED 20:21 → 3A 12-02 01:29
PROVIDERS: ADMIT Hospitalist; ATTEND Internal Medicine
DX: A41.9 Sepsis, unspecified organism (principal); G93.41 Metabolic encephalopathy; N39.0 Urinary tract infection, site not specified; K52.9 Noninfective gastroenteritis and colitis, unspecified; E87.6 Hypokalemia; I95.9 Hypotension, unspecified; Z90.49 Acquired absence of other specified parts of digestive tract
CPT/HCPCS: 36415; 70450; 71045; 74177; 80048; 80053; 80076; 80320; 81001; 82140; 82550; 84443; 84484; 84702; 85007; 85025; 85610; 85730; 86850; 86900; 86901; 87040; 87076; 87086; 87186; 93005; G0378; J3490; J7070; J7517; Q0162; G0480; J0696; J1644; J1956; J2270; J3480; J7030; J7042; Q9967

== ENCOUNTER 2021-12-28 01:47 | Emergency (ER) | payer SELFPAY ==
[2021-12-28 01:53] VITALS: BP 118/74
== END 2021-12-28 08:23 | disposition left against medical advice (07) ==
LOC: ED 01:47
DX: R10.9 Unspecified abdominal pain (principal); Z53.21 Procedure and treatment not carried out due to patient leaving prior to being seen by health care provider

== ENCOUNTER 2022-01-25 18:11 | Emergency (ER) | payer SELFPAY ==
[2022-01-25 18:22] VITALS: BP 136/88
== END 2022-01-25 23:45 | disposition left against medical advice (07) ==
LOC: ED 18:11
DX: R10.9 Unspecified abdominal pain (principal); Z53.21 Procedure and treatment not carried out due to patient leaving prior to being seen by health care provider